=== PATIENT | female | born 1965 | race Caucasian/White ===

== ENCOUNTER → 2016-07-27 | Outpatient (CLI) | payer OTHER ==
[~2016-07-27] MED LIST: *GLUCOMETE; /ATOR40TA; /AUGM875TA OR; /CELE20CA OR; /ESOM40CA; /ESOM40CA OR; /GLIP10TAB OR; ACET650S RE; ACET65TA; AMBI5TAB; ANTIV 25 PO; ASPI81TA85 PO; ATOR1TAB18 PO; BUSP10TA PO; CLAR5CHW; CLAR5CHW OR; CLARITD12H PO; COMPAZIN10 PO; FERR325T; FERR325T OR; FERR325T PO; FLUO20CA8 PO; GLIP10TA18; GLUC1000 OR; GLUC850T; GLUCCOSEAC TOPICAL; GLUCOPH850 PO; GLUCOTROL5 PO; GLYBURIDE5 PO; HYDR12.55 PO; HYDR25TA6 OR; IBUP600T OR; IBUP800T23 PO; IMIT100T; INSUHUMDS SC; JANUVIA OR; LANCETDEV -; LANCMIS; LEVA500T; LEVO750T33 PO; LIPI20TA OR; LIPITOR20 PO; LISI10TA4 PO; LISI5TAB OR; LORA5TAB2 PO; MAG400TA PO; MECL-68 PO; MECL25TA2 OR; METF1000 PO; MOTRIN800 PO; NORT10CA2 PO; NYST10PW TOP; OMEP40CA2 PO; PAME25CA PO; PERC5TAB8 OR; PRIN5TAB; RANI15TA PO; ROSI2TA; SUMA25TA3 PO; TOUJ1.2I SC; VICT18IN SC; XENICAL120 PO; ZOLO50TA; ZOLO50TA OR
== END ==
LOC: M LAB 16:04
PROVIDERS: ATTEND Student in an Organized Health Care Education/Training Program
DX: E11.65 Type 2 diabetes mellitus with hyperglycemia (principal); Z91.89 Other specified personal risk factors, not elsewhere classified

== ENCOUNTER → 2016-08-10 | Outpatient (CLI) | payer OTHER ==
[~2016-08-10] MED LIST changes: +E-Z-GAS II EFFERVESCENT PACKET (SODIUM BICARB./CITRIC ACID/SIMETHICONE) As Ordered ONE; +E-Z-HD 98% w/w 340GM SUSP BTL As Ordered ONE; +E-Z-PAQUE 96% w/w SUSP 176GM BTL As Ordered ONE
--- NOTE | 2016-08-10 16:37 | REP ---
ESOPHAGRAM, AIR CONTRAST: The procedure was performed under the direct supervision of Dr. Hall. The images were reviewed with Dr. Hall. A single view PA chest x-ray is submitted as a college tutor film. There is no change compared to a previous chest x-ray performed on 10/19/2015. The gas-producing granules were given however the patient stated she was unable to drink the barium. The procedure was then discontinued. IMPRESSION: The patient states that she is unable to drink the barium and therefore the procedure was discontinued. 2 seconds of fluoroscopic time was utilized for this procedure. Reviewed by HIMA Casas 08/10/2016 05:14 PEdited and Signed by Cirilo Hall MD 08/11/2016 06:23 P
== END ==
LOC: M RAD 10:01
PROVIDERS: ATTEND Physician Assistant Medical
DX: R13.10 Dysphagia, unspecified (principal); R12 Heartburn; Z53.8 Procedure and treatment not carried out for other reasons

== ENCOUNTER → 2016-08-15 | Outpatient (CLI) | payer OTHER ==
[~2016-08-15] VITALS: Ht 165.1 cm; Wt 115.2 kg
[~2016-08-15] MED LIST changes: -E-Z-GAS II EFFERVESCENT PACKET (SODIUM BICARB./CITRIC ACID/SIMETHICONE) As Ordered ONE; -E-Z-HD 98% w/w 340GM SUSP BTL As Ordered ONE; -E-Z-PAQUE 96% w/w SUSP 176GM BTL As Ordered ONE; +LIDOCAINE 2% INJ 100 MG/5 ML SDV (FOR ANES.) As Ordered ONE; +NS 1,000 ML IV SCH; +PHENYLephrine HCL 500 MCG/5 ML (100MCG/ML) SYRINGE (J2370) As Ordered ONE; +PROPOFOL 200 MG/20 ML VIAL As Ordered ONE; +fentaNYL 100 MCG/2 ML INJECTION (J3010) As Ordered ONE
--- NOTE | 2016-08-15 12:11 | ROOR ---
Patient Name: Felicita Esposito Procedure Date: 08/15/2016 11:57 AM Date of : 1965 Age: 51 Room: [facility] Gender: Female Note Status: Finalized Procedure: Upper GI endoscopy Indications: Heartburn, Globus sensation Providers: Jack LANDAVERDE MD Referring MD: FOREIGN PANDA [facility] May Requesting Provider: Medicines: Monitored Anesthesia Care Complications: No immediate complications. Procedure: Pre-Anesthesia Assessment: - The heart rate, respiratory rate, oxygen saturations, blood pressure, adequacy of pulmonary ventilation, and response to care were monitored throughout the procedure. The Endoscope was introduced through the mouth, and advanced to the second part of duodenum. The upper GI endoscopy was accomplished without difficulty. The patient tolerated the procedure well. Findings: The Z-line was variable and was found 39 cm from the incisors. The esophagus was normal. The stomach was normal. The examined duodenum was normal. No endoscopic abnormality was evident in the esophagus to explain the patient's complaint of dysphagia. It was decided, however, to proceed with dilation of the entire esophagus. The scope was withdrawn. Dilation was performed with a Palacios dilator with no resistance at 54 Fr. Impression: - Z-line variable, 39 cm from the incisors. - Normal esophagus. - Normal stomach. - Normal examined duodenum. - No endoscopic esophageal abnormality to explain patient's dysphagia. Esophagus dilated with 54 Palacios dilator. - No specimens collected. Recommendation: - Observe patient's clinical course. - Continue present medications. Jack Landaverde MD Jack LANDAVERDE MD 08/15/2016 12:10:56 PM This report has been signed electronically. Number of Addenda: 0 Note Initiated On: 08/15/2016 11:57 AM Estimated Blood Loss: Estimated blood loss: none.
--- NOTE | 2016-08-15 12:24 | ROOR ---
Patient Name: Felicita Esposito Procedure Date: 08/15/2016 12:00 PM Date of : 1965 Age: 51 Room: [facility] Gender: Female Note Status: Finalized Procedure: Colonoscopy Indications: Screening for colorectal malignant neoplasm Providers: Jack LANDAVERDE MD Referring MD: FOREIGN PANDA Candy [facility] FOREIGN Olvera Requesting Provider: Medicines: Monitored Anesthesia Care Complications: No immediate complications. Procedure: Pre-Anesthesia Assessment: - The heart rate, respiratory rate, oxygen saturations, blood pressure, adequacy of pulmonary ventilation, and response to care were monitored throughout the procedure. The Colonoscope was introduced through the anus and advanced to the terminal ileum, with identification of the appendiceal orifice and IC valve. The colonoscopy was performed without difficulty. The patient tolerated the procedure well. The quality of the bowel preparation was poor. Findings: The perianal exam findings include non-thrombosed external hemorrhoids. (Colon Prep was POOR, Inadequate Visualisation) A 5 mm polyp was found in the sigmoid colon. The polyp was sessile. The polyp was removed with a cold snare. Resection and retrieval were complete. Internal hemorrhoids were found during retroflexion. The hemorrhoids were medium-sized. Impression: - Preparation of the colon was poor. No obstructing lesions, but visualisation was inadequate for detail exam. - External and internal hemorrhoids found. - One 5 mm polyp in the sigmoid colon, removed with a cold snare. Resected and retrieved. Recommendation: - Repeat colonoscopy in 1 year for adenoma surveillance. - Repeat colonoscopy in 1 year because the bowel preparation was suboptimal. Jack Landaverde MD Jack LANDAVERDE MD 08/15/2016 12:24:03 PM This report has been signed electronically. Number of Addenda: 0 Note Initiated On: 08/15/2016 12:00 PM Estimated Blood Loss: Estimated blood loss: none.
[2016-08-15 12:50] VITALS: BP 136/65
== END | disposition home or self-care (01) ==
LOC: M OPP 11:01
PROVIDERS: ATTEND Internal Medicine Gastroenterology
DX: Z12.11 Encounter for screening for malignant neoplasm of colon (principal); D12.5 Benign neoplasm of sigmoid colon; K64.4 Residual hemorrhoidal skin tags; K64.8 Other hemorrhoids; R12 Heartburn; K22.8 Other specified diseases of esophagus; F45.8 Other somatoform disorders; F33.9 Major depressive disorder, recurrent, unspecified; F41.9 Anxiety disorder, unspecified; E10.9 Type 1 diabetes mellitus without complications; D50.9 Iron deficiency anemia, unspecified; E78.5 Hyperlipidemia, unspecified; I10 Essential (primary) hypertension; R06.83 Snoring; Z79.82 Long term (current) use of aspirin; Z79.899 Other long term (current) drug therapy; Z79.1 Long term (current) use of non-steroidal anti-inflammatories (NSAID); Z79.4 Long term (current) use of insulin; Z79.84 Long term (current) use of oral hypoglycemic drugs; Z91.048 Other nonmedicinal substance allergy status
CPT/HCPCS: 43235; 43450; 45385; 88305; 99156; 99157; J2370; J3010

== ENCOUNTER → 2017-05-04 | Outpatient (REF) | payer OTHER ==
[~2017-05-04] MED LIST changes: -ATOR1TAB18 PO; +ATOR80TA59 PO; +FERR1TAB8 PO; -FERR325T PO; +IBUP1TAB7 PO; -IBUP800T23 PO; +LEVO750T13 PO; -LEVO750T33 PO; -LIDOCAINE 2% INJ 100 MG/5 ML SDV (FOR ANES.) As Ordered ONE; -METF1000 PO; +METF10004 PO; -NS 1,000 ML IV SCH; -PHENYLephrine HCL 500 MCG/5 ML (100MCG/ML) SYRINGE (J2370) As Ordered ONE; -PROPOFOL 200 MG/20 ML VIAL As Ordered ONE; -fentaNYL 100 MCG/2 ML INJECTION (J3010) As Ordered ONE
== END ==
LOC: M LAB REF 08:18
PROVIDERS: ATTEND Hospitalist
DX: J02.9 Acute pharyngitis, unspecified (principal)

== ENCOUNTER → 2017-05-08 | Outpatient (CLI) | payer OTHER ==
--- NOTE | 2017-05-09 09:11 | REP ---
Clinical: Neck and right upper extremity pain. Technique: AP, lateral, flexion/extension, bilateral oblique and open mouth views. Findings: Advanced degenerative disc osteophyte complex noted at the C4-5 C5-6 and C6-7 levels including osteophytosis, endplate sclerosis and disc space narrowing. Associated facet arthropathy is also suggested at the C4-5 and C5-6 levels bilaterally. No evidence for acute fracture / compression injury or subluxation. Prevertebral soft tissues are normal. Spinous processes are intact. Open mouth view demonstrates normal C1-C2 articulation and odontoid process. Impression: Advanced multifocal degenerative changes C4-5 through C6-7. Signed by Duane Alberto MD 05/09/2017 09:02 A
== END ==
LOC: M ADAMS 11:55
PROVIDERS: ATTEND Hospitalist
DX: M25.511 Pain in right shoulder (principal)

== ENCOUNTER → 2017-05-08 | Outpatient (REF) | payer OTHER ==
[2017-05-08 15:35] LABS: ANION GAP 8 MEQ/L (8-16); BLOOD UREA NITROGEN 18 MG/DL (7-18); CARBON DIOXIDE LEVEL 24 MEQ/L (21-32); CHLORIDE LEVEL 105 MEQ/L (98-107); CREATININE FOR GFR 0.76 MG/DL (0.55-1.02); GLOMERULAR FILTRATION RATE > 60.0 (>51); GLUCOSE, FASTING 364 MG/DL (70-105); POTASSIUM SERUM 4.1 MEQ/L (3.5-5.1); SODIUM LEVEL 137 MEQ/L (136-145)
== END ==
LOC: M SFHCPLAZ 11:39
DX: J02.9 Acute pharyngitis, unspecified (principal); Z28.21 Immunization not carried out because of patient refusal; E11.9 Type 2 diabetes mellitus without complications

== ENCOUNTER 2017-06-02 06:41 | Emergency (ER) | payer OTHER ==
[2017-06-02] MEDS ORDERED: KETOROLAC 60 MG/2 ML VIAL (J1885) IM ONE (08:00)
[2017-06-02] MEDS ORDERED: IBUP-1022 PO (09:37)
[2017-06-02] MEDS ORDERED: MELO7.5T7 PO (09:46)
[2017-06-02 09:54] VITALS: BP 173/73
--- NOTE | 2017-06-02 13:04 | REP ---
REASON FOR EXAM: Pain after trauma. COMPARISON: 05/04/2016. FINDINGS: Three views of the left shoulder were performed. The acromioclavicular and glenohumeral relationships are within normal limits. There is no acute fracture or destructive osseous lesion. No significant change in the osseous structures compared to the prior exam, however, today's exam shows a tiny calcification lateral to the humeral head within the soft tissues possible secondary to chronic calcific subdeltoid bursitis or chronic supraspinatus tendinitis. This should be correlated clinically. Signed by Vinicius Smith DO 06/02/2017 01:39 P
--- NOTE | 2017-06-02 13:06 | REP ---
REASON FOR EXAM: Pain and trauma. COMPARISON: 12/18/2014. There is tricompartmental marginal osteophytosis which has increased slightly from the prior exam and seen in conjunction with patellofemoral joint space and medial compartmental narrowing status quo. There is no acute fracture. IMPRESSION: Degenerative changes as described above. Signed by Vinicius Smith DO 06/02/2017 01:39 P
--- NOTE | 2017-06-02 13:07 | REP ---
REASON FOR EXAM: Trauma. Degenerative change is seen throughout the elbow with joint space narrowing and marginal osteophyte formation. There is no evidence of an acute fracture or joint effusion. IMPRESSION: Rather extensive degenerative changes as described above. Signed by Vinicius Smith DO 06/02/2017 01:39 P
--- NOTE | 2017-06-04 12:33 | ED PDOC ---
Post-Departure Follow-Up certified letter sent to pt re formal reading of left shoulder film. Samuel Blum MD Jun 04, 2017 12:33
== END 2017-06-02 09:55 | disposition home or self-care (01) ==
LOC: M ED 06:41
DX: Z04.1 Encounter for examination and observation following transport accident (principal); V40.6XXA Car passenger injured in collision with pedestrian or animal in traffic accident, initial encounter; Y92.413 State road as the place of occurrence of the external cause; Y93.89 Activity, other specified; Y99.8 Other external cause status; M25.522 Pain in left elbow; M19.90 Unspecified osteoarthritis, unspecified site; E11.9 Type 2 diabetes mellitus without complications; I10 Essential (primary) hypertension; H54.61 Unqualified visual loss, right eye, normal vision left eye; Z79.4 Long term (current) use of insulin; Z79.84 Long term (current) use of oral hypoglycemic drugs; Z79.82 Long term (current) use of aspirin; Z79.899 Other long term (current) drug therapy; L23.1 Allergic contact dermatitis due to adhesives; Z91.048 Other nonmedicinal substance allergy status
CPT/HCPCS: 73030; 73080; 73564; 96372; 99284; J1885

== ENCOUNTER → 2017-07-05 | Outpatient (REF) | payer OTHER | LOC: M SFHCPLAZ 17:58 | DX: J02.9 Acute pharyngitis, unspecified (principal) ==

== ENCOUNTER → 2017-07-20 | Outpatient (REF) | payer OTHER | LOC: M SFHCPLAZ 15:48 | DX: J02.9 Acute pharyngitis, unspecified (principal) ==

== ENCOUNTER → 2017-07-24 | Outpatient (REF) | payer OTHER ==
[2017-07-24 12:49] LABS: BASO % 0.3 % (0.0-1.0); EOS # 0.1 10^3/uL (0.0-0.50); EOS % 1.9 % (0.0-3.0); HEMATOCRIT 26.8 % (36.0-47.0); HEMOGLOBIN 7.1 g/dl (12.0-16.0); IMMATURE GRANULOCYTE % 0.3 % (0-0); LYMPH # 1.1 10^3/uL (1.5-4.5); LYMPH % 29.5 % (24.0-44.0); MEAN CORPUSCULAR HEMOGLOBIN 17.6 pg (27.0-33.0); MEAN CORPUSCULAR HGB CONC 26.5 g/dl (32.0-36.5); MEAN CORPUSCULAR VOLUME 66.3 fl (80.0-96.0); MONO # 0.3 10^3/uL (0.0-0.8); MONO % 8.5 % (0.0-5.0); NEUTROPHILS # 2.2 10^3/uL (1.8-7.7); NEUTROPHILS % 59.5 % (36.0-66.0); PLATELET COUNT, AUTOMATED 148 10^3/uL (150-450); RED BLOOD COUNT 4.04 10^6/uL (4.00-5.40); RED CELL DISTRIBUTION WIDTH 18.6 % (11.5-14.5); WHITE BLOOD COUNT 3.8 10^3/uL (4.0-10.0)
[2017-07-24 13:15] LABS: ESTIMATED AVERAGE GLUCOSE 341 MG/DL (60-110); HEMOGLOBIN A1c 13.5 %
== END ==
LOC: M SFHCPLAZ 12:22
DX: J02.9 Acute pharyngitis, unspecified (principal); M25.512 Pain in left shoulder; F45.8 Other somatoform disorders

== ENCOUNTER → 2017-07-31 | Outpatient (REF) | payer OTHER ==
[2017-07-31 14:33] LABS: BASO % 0.5 % (0.0-1.0); EOS # 0.1 10^3/uL (0.0-0.50); EOS % 1.3 % (0.0-3.0); HEMATOCRIT 26.1 % (36.0-47.0); HEMOGLOBIN 7.1 g/dl (12.0-16.0); IMMATURE GRANULOCYTE % 0.3 % (0-0); LYMPH # 1.1 10^3/uL (1.5-4.5); LYMPH % 28.2 % (24.0-44.0); MEAN CORPUSCULAR HEMOGLOBIN 18.2 pg (27.0-33.0); MEAN CORPUSCULAR HGB CONC 27.2 g/dl (32.0-36.5); MEAN CORPUSCULAR VOLUME 66.8 fl (80.0-96.0); MONO # 0.3 10^3/uL (0.0-0.8); MONO % 7.3 % (0.0-5.0); NEUTROPHILS # 2.4 10^3/uL (1.8-7.7); NEUTROPHILS % 62.4 % (36.0-66.0); PLATELET COUNT, AUTOMATED 142 10^3/uL (150-450); RED BLOOD COUNT 3.91 10^6/uL (4.00-5.40); RED CELL DISTRIBUTION WIDTH 18.6 % (11.5-14.5); WHITE BLOOD COUNT 3.8 10^3/uL (4.0-10.0)
[2017-07-31 15:16] LABS: IMMUNOGLOBULIN G 1350 MG/DL (681-1648); IMMUNOGLOBULIN M 169 MG/DL (40-230)
[2017-07-31 15:47] LABS: VITAMIN B12 LEVEL 930 PG/ML (247-911)
== END ==
LOC: M SFHCPLAZ 09:57
DX: J02.9 Acute pharyngitis, unspecified (principal); B99.9 Unspecified infectious disease
CPT/HCPCS: 82607

== ENCOUNTER → 2017-08-06 | Outpatient (CLI) | payer OTHER ==
[~2017-08-06] MED LIST changes: -*GLUCOMETE; -/ATOR40TA; -/AUGM875TA OR; -/CELE20CA OR; -/ESOM40CA; -/ESOM40CA OR; -/GLIP10TAB OR; -ACET650S RE; -ACET65TA; -AMBI5TAB; -ANTIV 25 PO; -ASPI81TA85 PO; -ATOR80TA59 PO; -BUSP10TA PO; -CLAR5CHW; -CLAR5CHW OR; -CLARITD12H PO; -COMPAZIN10 PO; +E-Z-GAS II EFFERVESCENT PACKET (SODIUM BICARB./CITRIC ACID/SIMETHICONE) As Ordered; +E-Z-HD 98% w/w 340GM SUSP BTL As Ordered; +E-Z-PAQUE 96% w/w SUSP 176GM BTL As Ordered; -FERR1TAB8 PO; -FERR325T; -FERR325T OR; -FLUO20CA8 PO; -GLIP10TA18; -GLUC1000 OR; -GLUC850T; -GLUCCOSEAC TOPICAL; -GLUCOPH850 PO; -GLUCOTROL5 PO; -GLYBURIDE5 PO; -HYDR12.55 PO; -HYDR25TA6 OR; -IBUP1TAB7 PO; -IBUP600T OR; -IMIT100T; -INSUHUMDS SC; -JANUVIA OR; -LANCETDEV -; -LANCMIS; -LEVA500T; -LEVO750T13 PO; -LIPI20TA OR; -LIPITOR20 PO; -LISI10TA4 PO; -LISI5TAB OR; -LORA5TAB2 PO; -MAG400TA PO; -MECL-68 PO; -MECL25TA2 OR; -METF10004 PO; -MOTRIN800 PO; -NORT10CA2 PO; -NYST10PW TOP; -OMEP40CA2 PO; -PAME25CA PO; -PERC5TAB8 OR; -PRIN5TAB; -RANI15TA PO; -ROSI2TA; -SUMA25TA3 PO; -TOUJ1.2I SC; -VICT18IN SC; -XENICAL120 PO; -ZOLO50TA; -ZOLO50TA OR
== END ==
LOC: M RAD 10:01
DX: F45.8 Other somatoform disorders (principal)

== ENCOUNTER → 2017-08-06 | Outpatient (REF) | payer OTHER ==
[2017-08-06 13:26] LABS: BASO % 0.6 % (0.0-1.0); EOS # 0.1 10^3/uL (0.0-0.50); EOS % 2.1 % (0.0-3.0); HEMATOCRIT 27.4 % (36.0-47.0); HEMOGLOBIN 7.4 g/dl (12.0-16.0); IMMATURE GRANULOCYTE % 0.4 % (0-3.0); LYMPH # 1.2 10^3/uL (1.5-4.5); LYMPH % 24.5 % (24.0-44.0); MEAN CORPUSCULAR HEMOGLOBIN 18.1 pg (27.0-33.0); MEAN CORPUSCULAR VOLUME 67.2 fl (80.0-96.0); MONO # 0.3 10^3/uL (0.0-0.8); MONO % 5.6 % (0.0-5.0); NEUTROPHILS # 3.2 10^3/uL (1.8-7.7); NEUTROPHILS % 66.8 % (36.0-66.0); PLATELET COUNT, AUTOMATED 144 10^3/uL (150-450); RED BLOOD COUNT 4.08 10^6/uL (4.00-5.40); RED CELL DISTRIBUTION WIDTH 19.7 % (11.5-14.5); WHITE BLOOD COUNT 4.8 10^3/uL (4.0-10.0)
== END ==
LOC: M SFHCPLAZ 12:32
DX: D61.818 Other pancytopenia (principal)

== ENCOUNTER → 2017-08-06 | Outpatient (CLI) | payer OTHER | LOC: M ADAMS 11:20 | DX: M25.512 Pain in left shoulder (principal) | CPT/HCPCS: 73030 ==

== ENCOUNTER → 2017-08-07 | Outpatient (REF) | payer OTHER ==
[2017-08-09 00:07] LABS: LEUKOCYTE ALKALINE PHOSPHATASE 123 (25-130)
== END ==
LOC: M SFHCPLAZ 12:16
DX: D61.818 Other pancytopenia (principal)
CPT/HCPCS: 85540

== ENCOUNTER → 2017-08-17 | Outpatient (REF) | payer OTHER ==
[2017-08-21 00:06] LABS: TISSUE TRANSGLUTAMINASE IgA <2 U/mL (0-3)
[2017-08-23 00:06] LABS: IgA ULTRASENSITIVE 552.3 mg/dL (72-321)
== END ==
LOC: M SFHCPLAZ 13:46
DX: D64.9 Anemia, unspecified (principal)

== ENCOUNTER → 2017-08-28 | Outpatient (REF) | payer OTHER ==
[2017-08-28 14:05] LABS: BASO % 0.4 % (0.0-1.0); EOS # 0.1 10^3/uL (0.0-0.50); EOS % 1.9 % (0.0-3.0); HEMATOCRIT 30.2 % (36.0-47.0); HEMOGLOBIN 8.1 g/dl (12.0-16.0); IMMATURE GRANULOCYTE % 0.4 % (0-3.0); LYMPH # 1.3 10^3/uL (1.5-4.5); LYMPH % 26.6 % (24.0-44.0); MEAN CORPUSCULAR HEMOGLOBIN 19.4 pg (27.0-33.0); MEAN CORPUSCULAR HGB CONC 26.8 g/dl (32.0-36.5); MEAN CORPUSCULAR VOLUME 72.2 fl (80.0-96.0); MONO # 0.4 10^3/uL (0.0-0.8); MONO % 7.7 % (0.0-5.0); PLATELET COUNT, AUTOMATED 120 10^3/uL (150-450); RED BLOOD COUNT 4.18 10^6/uL (4.00-5.40); RED CELL DISTRIBUTION WIDTH 21.2 % (11.5-14.5); RETIC HEMOGLOBIN EQUIVALENT 24.2 pg (24-36); RETICULOCYTE # 100.3 10^9/L (17-77); RETICULOCYTE % 2.4 % (0.5-1.5); WHITE BLOOD COUNT 4.8 10^3/uL (4.0-10.0)
[2017-08-28 14:26] LABS: REASON FOR REVIEW OTHER; SLIDE REVIEW Report
[2017-08-28 14:29] LABS: ADD MANUAL DIFFER NO; DIFF SLIDE NUMBER 146; SOURCE PERIPHERAL SMEAR
== END ==
LOC: M SFHCPLAZ 08:19
DX: D61.818 Other pancytopenia (principal)
CPT/HCPCS: 85046

== ENCOUNTER → 2017-09-24 | Outpatient (CLI) | payer OTHER | LOC: M SLEEP HO 11:22 | DX: R40.0 Somnolence (principal) | CPT/HCPCS: G0399 ==

== ENCOUNTER → 2017-09-25 | Outpatient (CLI) | payer OTHER ==
[2017-09-25 20:09] LABS: BASO % 0.6 % (0.0-1.0); EOS # 0.1 10^3/uL (0.0-0.50); EOS % 1.7 % (0.0-3.0); HEMATOCRIT 30.8 % (36.0-47.0); HEMOGLOBIN 8.4 g/dl (12.0-15.5); IMMATURE GRANULOCYTE % 0.3 % (0-3.0); LYMPH % 27.7 % (24.0-44.0); MEAN CORPUSCULAR HEMOGLOBIN 20.1 pg (27.0-33.0); MEAN CORPUSCULAR HGB CONC 27.3 g/dl (32.0-36.5); MEAN CORPUSCULAR VOLUME 73.7 fl (80.0-96.0); MONO # 0.3 10^3/uL (0.0-0.8); MONO % 7.8 % (0.0-5.0); NEUTROPHILS # 2.1 10^3/uL (1.8-7.7); NEUTROPHILS % 61.9 % (36.0-66.0); PLATELET COUNT, AUTOMATED 135 10^3/uL (150-450); RED BLOOD COUNT 4.18 10^6/uL (4.00-5.40); RED CELL DISTRIBUTION WIDTH 19.7 % (11.5-14.5); RETIC HEMOGLOBIN EQUIVALENT 24.7 pg (24-36); RETICULOCYTE # 68.6 10^9/L (17-77); RETICULOCYTE % 1.6 % (0.5-1.5); WHITE BLOOD COUNT 3.5 10^3/uL (4.0-10.0)
[2017-09-25 20:16] LABS: INR 0.98; PROTHROMBIN TIME 13.1 SECONDS (12.4-14.5); REASON FOR REVIEW PLATELET MORPHOLOGY; SLIDE REVIEW Report; SOURCE PERIPHERAL SMEAR
[2017-09-25 20:57] LABS: C REACTIVE PROTEIN QUANTITATIV 0.77 MG/DL (0.00-0.30)
== END ==
LOC: M RAD 16:44
DX: D69.6 Thrombocytopenia, unspecified (principal)
CPT/HCPCS: 74150

== ENCOUNTER → 2017-10-16 | Outpatient (REF) | payer OTHER ==
[2017-10-16 19:11] LABS: FERRITIN 7 NG/ML (8-252); IRON (FE) 161 UG/DL (50-170); TOTAL IRON BINDING CAPACITY 383 UG/DL (250-450)
[2017-10-16 19:16] LABS: FOLATE 8.8 NG/ML (>5.4); VITAMIN B12 LEVEL 911 PG/ML (247-911)
[2017-10-18 11:30] LABS: ALBUMIN % 45.6 % (55.8-66.1); ALPHA-1-GLOBULIN % 4.1 % (2.9-4.9)
[2017-10-18 11:31] LABS: ALBUMIN 3.19 GM/DL (3.29-5.55); ALPHA-1-GLOBULINS 0.29 GM/DL (0.17-0.41); ALPHA-2-GLOBULINS 0.75 GM/DL (0.42-0.99); ALPHA-2-GLOBULINS % 10.7 % (7.1-11.8); BETA-1-GLOBULINS 0.64 GM/DL (0.28-0.60); BETA-1-GLOBULINS % 9.2 % (4.7-7.2); BETA-2-GLOBULINS 0.46 GM/DL (0.19-0.55); BETA-2-GLOBULINS % 6.6 % (3.2-6.5); GAMMA GLOBULIN % 23.8 % (11.1-18.8); GAMMA GLOBULINS 1.67 GM/DL (0.65-1.58)
[2017-10-19 00:07] LABS: HAPTOGLOBIN 67 mg/dL (34-200)
[2017-10-19 00:07] LABS: BETA 2 MICROGLOBULIN 2.9 mg/L (0.6-2.4)
[2017-10-19 14:33] LABS: PRETREATED FOLATE FOR RBCFOL 9.9 NG/ML; RBC FOLATE 649.7 NG/ML (280-791)
== END ==
LOC: M LAB REF 16:54
DX: D61.818 Other pancytopenia (principal)

== ENCOUNTER → 2018-01-14 | Outpatient (CLI) | payer OTHER | LOC: M WHC 11:00 | DX: R10.84 Generalized abdominal pain (principal) | CPT/HCPCS: 76830 ==

== ENCOUNTER → 2018-02-12 | Outpatient (REF) | payer OTHER ==
[2018-02-12 20:16] LABS: RETIC HEMOGLOBIN EQUIVALENT 34.2 pg (24-36); RETICULOCYTE # 68.8 10^9/L (17-77); RETICULOCYTE % 1.5 % (0.5-1.5)
[2018-02-12 20:27] LABS: GAMMA GLUTAMYLTRANSPEPTIDASE 426 U/L (5-55)
[2018-02-12 20:27] LABS: ALKALINE PHOSPHATASE 340 U/L (45-117)
[2018-02-12 20:37] LABS: ESTIMATED AVERAGE GLUCOSE 332 MG/DL (60-110); HEMOGLOBIN A1c 13.2 %
[2018-02-12 23:18] LABS: FOLLICLE STIMULATING HORMONE 50.5 mIU/mL; LUTEINIZING HORMONE 39.3 mIU/mL
[2018-02-13 09:22] LABS: HEPATITIS B SURFACE ANTIGEN NEGATIVE (NEGATIVE)
[2018-02-16 00:06] LABS: ANTI-MITOCHONDRIAL ANTIBODY 6.4 Units (0.0-20.0); ANTINUCLEAR ANTIBODIES DIRECT Negative (Negative); CERULOPLASMIN 30.4 mg/dL (19.0-39.0); HEMOGLOBIN A 97.8 % (96.4-98.8); HEMOGLOBIN A2 2.2 % (1.8-3.2); HGB SOLUBILITY Negative (Negative); LIVER-KIDNEY MICROSOMAL ABY 1.5 Units (0.0-20.0)
[2018-02-16 00:06] LABS: HEMOGLOBIN A2 QUANTITATIVE 2.2 % (1.8-3.2)
== END ==
LOC: M SFHCPLAZ 15:46
DX: K74.60 Unspecified cirrhosis of liver (principal); E11.9 Type 2 diabetes mellitus without complications; N93.9 Abnormal uterine and vaginal bleeding, unspecified

== ENCOUNTER → 2018-03-05 | Outpatient (REF) | payer OTHER ==
[2018-03-05 20:23] LABS: BASO % 0.2 % (0.0-1.0); EOS # 0.1 10^3/uL (0.0-0.50); EOS % 1.6 % (0.0-3.0); HEMATOCRIT 37.5 % (36.0-47.0); HEMOGLOBIN 12.4 g/dl (12.0-15.5); IMMATURE GRANULOCYTE % 0.2 % (0-3.0); LYMPH # 0.9 10^3/uL (1.5-4.5); LYMPH % 21.1 % (24.0-44.0); MEAN CORPUSCULAR HEMOGLOBIN 27.6 pg (27.0-33.0); MEAN CORPUSCULAR HGB CONC 33.1 g/dl (32.0-36.5); MEAN CORPUSCULAR VOLUME 83.3 fl (80.0-96.0); MONO # 0.3 10^3/uL (0.0-0.8); MONO % 5.7 % (0.0-5.0); NEUTROPHILS # 3.1 10^3/uL (1.8-7.7); NEUTROPHILS % 71.2 % (36.0-66.0); PLATELET COUNT, AUTOMATED 102 10^3/uL (150-450); RED CELL DISTRIBUTION WIDTH 14.3 % (11.5-14.5); WHITE BLOOD COUNT 4.4 10^3/uL (4.0-10.0)
== END ==
LOC: M SFHCPLAZ 13:27 → M SFHCADAM 13:31
DX: E55.9 Vitamin D deficiency, unspecified (principal); D50.8 Other iron deficiency anemias
CPT/HCPCS: 82306

== ENCOUNTER → 2018-04-23 | Outpatient (REF) | payer OTHER ==
[2018-04-23 19:54] LABS: BASO % 0.4 % (0.0-1.0); EOS # 0.1 10^3/uL (0.0-0.50); HEMATOCRIT 37.2 % (36.0-47.0); HEMOGLOBIN 12.3 g/dl (12.0-15.5); IMMATURE GRANULOCYTE % 0.2 % (0-3.0); LYMPH # 1.1 10^3/uL (1.5-4.5); LYMPH % 24.9 % (24.0-44.0); MEAN CORPUSCULAR HEMOGLOBIN 29.1 pg (27.0-33.0); MEAN CORPUSCULAR HGB CONC 33.1 g/dl (32.0-36.5); MEAN CORPUSCULAR VOLUME 87.9 fl (80.0-96.0); MONO # 0.4 10^3/uL (0.0-0.8); NEUTROPHILS # 2.8 10^3/uL (1.8-7.7); NEUTROPHILS % 63.5 % (36.0-66.0); PLATELET COUNT, AUTOMATED 104 10^3/uL (150-450); RED BLOOD COUNT 4.23 10^6/uL (4.00-5.40); RED CELL DISTRIBUTION WIDTH 14.2 % (11.5-14.5); WHITE BLOOD COUNT 4.5 10^3/uL (4.0-10.0)
[2018-04-23 20:05] LABS: ESTIMATED AVERAGE GLUCOSE 295 MG/DL (60-110); HEMOGLOBIN A1c 11.9 %
== END ==
LOC: M LAB REF 18:58
DX: D50.8 Other iron deficiency anemias (principal); E11.39 Type 2 diabetes mellitus with other diabetic ophthalmic complication
CPT/HCPCS: 83036

== ENCOUNTER → 2018-05-10 | Outpatient (REF) | payer OTHER ==
[2018-05-10 19:45] LABS: BASO % 0.5 % (0.0-1.0); EOS # 0.1 10^3/uL (0.0-0.50); EOS % 3.4 % (0.0-3.0); HEMATOCRIT 37.9 % (36.0-47.0); HEMOGLOBIN 12.6 g/dl (12.0-15.5); IMMATURE GRANULOCYTE % 0.5 % (0-3.0); LYMPH # 1.3 10^3/uL (1.5-4.5); LYMPH % 30.4 % (24.0-44.0); MEAN CORPUSCULAR HEMOGLOBIN 29.6 pg (27.0-33.0); MEAN CORPUSCULAR HGB CONC 33.2 g/dl (32.0-36.5); MEAN CORPUSCULAR VOLUME 89.2 fl (80.0-96.0); MONO # 0.3 10^3/uL (0.0-0.8); MONO % 7.7 % (0.0-5.0); NEUTROPHILS # 2.4 10^3/uL (1.8-7.7); NEUTROPHILS % 57.5 % (36.0-66.0); PLATELET COUNT, AUTOMATED 102 10^3/uL (150-450); RED BLOOD COUNT 4.25 10^6/uL (4.00-5.40); RED CELL DISTRIBUTION WIDTH 14.1 % (11.5-14.5); WHITE BLOOD COUNT 4.1 10^3/uL (4.0-10.0)
[2018-05-10 19:52] LABS: ALBUMIN 2.8 GM/DL (3.2-5.2); ALBUMIN/GLOBULIN RATIO 0.72 (1.00-1.93); ALKALINE PHOSPHATASE 216 U/L (45-117); ALT/SGPT 35 U/L (12-78); ANION GAP 8 MEQ/L (8-16); AST/SGOT 35 U/L (7-37); BILIRUBIN,TOTAL 0.7 MG/DL (0.2-1.0); BLOOD UREA NITROGEN 19 MG/DL (7-18); CALCIUM LEVEL 9.2 MG/DL (8.5-10.1); CARBON DIOXIDE LEVEL 27 MEQ/L (21-32); CHLORIDE LEVEL 103 MEQ/L (98-107); CREATININE FOR GFR 0.87 MG/DL (0.55-1.30); GLOMERULAR FILTRATION RATE > 60.0 (>51); GLUCOSE, FASTING 326 MG/DL (70-100); POTASSIUM SERUM 3.7 MEQ/L (3.5-5.1); SODIUM LEVEL 138 MEQ/L (136-145); TOTAL PROTEIN 6.7 GM/DL (6.4-8.2)
[2018-05-10 19:55] LABS: PROTHROMBIN TIME 13.3 SECONDS (12.1-14.4)
== END ==
LOC: M SFHCPLAZ 11:26 → M SFHCADAM 11:27
DX: K76.0 Fatty (change of) liver, not elsewhere classified (principal)

== ENCOUNTER → 2018-05-30 | Outpatient (REF) | payer OTHER | LOC: M SFHCPLAZ 15:38 | DX: J02.9 Acute pharyngitis, unspecified (principal) ==

== ENCOUNTER → 2018-08-07 | Outpatient (REF) | payer OTHER ==
[~2018-08-07] MED LIST changes: +*GLUCOMETE; +/ATOR40TA; +/AUGM875TA OR; +/CELE20CA OR; +/ESOM40CA; +/ESOM40CA OR; +/GLIP10TAB OR; +ACET650S RE; +ACET65TA; +AMBI5TAB; +ANTIV 25 PO; +ASPI81TA85 PO; +ATOR80TA59 PO; +BUSP10TA PO; +CLAR5CHW; +CLAR5CHW OR; +CLARITD12H PO; +COLA100C5 PO; +COMPAZIN10 PO; -E-Z-GAS II EFFERVESCENT PACKET (SODIUM BICARB./CITRIC ACID/SIMETHICONE) As Ordered; -E-Z-HD 98% w/w 340GM SUSP BTL As Ordered; -E-Z-PAQUE 96% w/w SUSP 176GM BTL As Ordered; +FERR1TAB8 PO; +FERR325T; +FERR325T OR; +FERR325T3 PO; +FLUO20CA19 PO; +FLUO20CA8 PO; +GLIP10TA18; +GLUC1000 OR; +GLUC850T; +GLUCCOSEAC TOPICAL; +GLUCOPH850 PO; +GLUCOTROL5 PO; +GLYBURIDE5 PO; +HYDR12.55 PO; +HYDR25TA6 OR; +HYDR25TAB PO; +IBUP-1022 PO; +IBUP1TAB7 PO; +IBUP600T OR; +IBUP80TA PO; +IMIT100T; +INSUHUMDS SC; +JANUVIA OR; +LANCETDEV -; +LANCMIS; +LEVA500T; +LEVO750T13 PO; +LIPI20TA OR; +LIPITOR20 PO; +LISI10TA4 PO; +LISI5TAB OR; +LORA-243 PO; +LORA-581 PO; +MAG400TA PO; +MECL-68 PO; +MECL25TA2 OR; +MELO7.5T7 PO; +METF10004 PO; +MOTRIN800 PO; +NORT10CA2 PO; +NYST10PW TOP; +OMEP40CA2 PO; +OXYC1TAB23 PO; +PAME25CA PO; +PERC5TAB8 OR; +PIOG1TAB37 PO; +PRIN5TAB; +RANI15TA PO; +ROSI2TA; +SUMA25TA3 PO; +TIZA4CAP PO; +TOUJ1.2I SC; +VICT18IN SC; +XENICAL120 PO; +ZOLO50TA; +ZOLO50TA OR
[2018-08-07 12:49] LABS: BASO % 0.4 % (0.0-1.0); EOS # 0.2 10^3/uL (0.0-0.50); HEMATOCRIT 39.4 % (36.0-47.0); HEMOGLOBIN 13.3 g/dl (12.0-15.5); LYMPH # 1.1 10^3/uL (1.5-4.5); LYMPH % 22.8 % (24.0-44.0); MEAN CORPUSCULAR HGB CONC 33.8 g/dl (32.0-36.5); MEAN CORPUSCULAR VOLUME 88.7 fl (80.0-96.0); MONO # 0.3 10^3/uL (0.0-0.8); MONO % 6.8 % (0.0-5.0); NEUTROPHILS # 3.1 10^3/uL (1.8-7.7); NEUTROPHILS % 65.6 % (36.0-66.0); PLATELET COUNT, AUTOMATED 103 10^3/uL (150-450); RED BLOOD COUNT 4.44 10^6/uL (4.00-5.40); WHITE BLOOD COUNT 4.7 10^3/uL (4.0-10.0)
[2018-08-07 13:25] LABS: ALBUMIN 2.7 GM/DL (3.2-5.2); ALT/SGPT 32 U/L (12-78); BILIRUBIN,TOTAL 0.7 MG/DL (0.2-1.0); BLOOD UREA NITROGEN 14 MG/DL (7-18); CALCIUM LEVEL 8.9 MG/DL (8.5-10.1); CARBON DIOXIDE LEVEL 27 MEQ/L (21-32); CHLORIDE LEVEL 104 MEQ/L (98-107); CHOLESTEROL LEVEL 167 MG/DL (<200); CHOLESTEROL RISK RATIO 3.553 (<5); CREATININE FOR GFR 0.73 MG/DL (0.55-1.30); FREE T4 1.05 NG/DL (0.76-1.46); GLOMERULAR FILTRATION RATE > 60.0 (>51); GLUCOSE, FASTING 237 MG/DL (70-100); HDL CHOLESTEROL 47 MG/DL (>40); LDL CHOLESTEROL 96 MG/DL (<100); NON-HDL-C 120 MG/DL; NT-PRO BNP 128 PG/ML (<125); POTASSIUM SERUM 3.7 MEQ/L (3.5-5.1); SODIUM LEVEL 138 MEQ/L (136-145); TOTAL PROTEIN 6.7 GM/DL (6.4-8.2); TRIGLYCERIDES LEVEL 122 MG/DL (<150)
[2018-08-07 13:50] LABS: HEMOGLOBIN A1c 11.7 %
[2018-08-07 14:06] LABS: MAU/CREAT RATIO 377.9 MCG/MG (0.0-30.0)
== END ==
LOC: M SFHCPLAZ 10:33
PROVIDERS: ATTEND Family Medicine
DX: Z01.818 Encounter for other preprocedural examination (principal); E03.8 Other specified hypothyroidism; E78.5 Hyperlipidemia, unspecified; E11.65 Type 2 diabetes mellitus with hyperglycemia

== ENCOUNTER 2018-08-12 10:22 | Day surgery (SDC) | payer OTHER ==
[~2018-08-12] VITALS: Ht 167.6 cm; Wt 100.5 kg
[2018-08-12] VITALS (7 sets, daily range): BP systolic 139–166; BP diastolic 63–75
[~2018-08-12 10:22] MED LIST changes: -OXYC1TAB23 PO
[2018-08-12] MEDS ORDERED: ONDANSETRON 4MG/2ML VIAL (J2405) As Ordered ONE ×2 (10:42→14:42)
[2018-08-12] MEDS ORDERED: fentaNYL 100 MCG/2 ML INJECTION (J3010) As Ordered ONE (10:42)
[2018-08-12] MEDS ORDERED: dexameTHASONE 4 MG/ML 1ML VIAL (J1100) As Ordered ONE (10:42)
[2018-08-12] MEDS ORDERED: PROPOFOL 200 MG/20 ML VIAL As Ordered ONE (10:42)
[2018-08-12] MEDS ORDERED: METOCLOPRAMIDE INJ 10MG/2ML VIAL (J2765) As Ordered ONE (10:42)
[2018-08-12] MEDS ORDERED: LIDOCAINE 2% INJ 100 MG/5 ML SDV (FOR ANES.) As Ordered ONE (10:42)
[2018-08-12] MEDS ORDERED: MIDAZOLAM INJ 2 MG/2 ML VIAL (J2250) As Ordered ONE (10:42)
[2018-08-12] MEDS ORDERED: ROCURONIUM BROMIDE 50 MG/5 ML VIAL As Ordered ONE (10:42)
[2018-08-12] MEDS ORDERED: KETOROLAC 60 MG/2 ML VIAL (J1885) As Ordered ONE (10:42)
[2018-08-12] MEDS ORDERED: ceFAZolin 2 GM/D5W 50 ML IV BAG (J0690 PER 500MG) As Ordered ONE (10:46)
[2018-08-12 10:54] LABS: HEMATOCRIT 39.5 % (36.0-47.0); HEMOGLOBIN 13.6 g/dl (12.0-15.5); MEAN CORPUSCULAR HEMOGLOBIN 29.8 pg (27.0-33.0); MEAN CORPUSCULAR HGB CONC 34.4 g/dl (32.0-36.5); MEAN CORPUSCULAR VOLUME 86.4 fl (80.0-96.0); PLATELET COUNT, AUTOMATED 100 10^3/uL (150-450); RED BLOOD COUNT 4.57 10^6/uL (4.00-5.40); WHITE BLOOD COUNT 5.5 10^3/uL (4.0-10.0)
[2018-08-12] MEDS ORDERED: LR 1,000 ML IV SCH ×2 (11:00→15:00)
[2018-08-12] MEDS ORDERED: BUPIVACAINE HCL 0.25% 10 ML VIAL As Ordered ONE (11:07)
[2018-08-12] MEDS ORDERED: METHYLENE BLUE 0.5% (5MG/ML) 10 ML AMP (PROVAYBLUE)(Q9968 PER 1MG) As Ordered ONE (11:07)
[2018-08-12] MEDS ORDERED: SCOPOLAMINE 1MG TRANSDERMAL PATCH As Ordered ONE (11:35)
[2018-08-12] MEDS ORDERED: SCOPOLAMINE 1MG TRANSDERMAL PATCH TOP ONE (11:45)
[2018-08-12] MEDS ORDERED: OXYC1TAB23 PO (14:28)
[2018-08-12] MEDS ORDERED: HumaLOG INSULIN (NovoLOG) PER UNIT As Ordered ONE (14:43)
[2018-08-12] MEDS ORDERED: HYDROmorphone HCL 2 MG/ML 1ML VIAL (J1170) As Ordered ONE (14:48)
[2018-08-12] MEDS ORDERED: PERCOCET 5MG/325MG TAB PO PRN ×2 (15:00)
[2018-08-12] MEDS ORDERED: fentaNYL 100 MCG/2 ML INJECTION (J3010) IV PRN (15:00)
[2018-08-12] MEDS ORDERED: ONDANSETRON 4MG/2ML VIAL (J2405) IV PRN ×2 (15:00→15:15)
[2018-08-12] MEDS ORDERED: MORPHINE 4 MG/ML 1ML VIAL/SYRINGE (J2270) IV PRN (15:00)
[2018-08-12] MEDS ORDERED: HumaLOG INSULIN (NovoLOG) PER UNIT SQ ONE (15:15)
[2018-08-12] MEDS: LR 1,000 ML IV SCH ×2 (16:00→23:00)
[2018-08-12] MEDS ORDERED: KETOROLAC 30 MG/ML VIAL (J1885) IV PRN (17:00)
[2018-08-12] MEDS ORDERED: FLUoxetine 20 MG CAP PO SCH (18:00)
[2018-08-12] MEDS: HumaLOG INSULIN (NovoLOG) PER UNIT SC SCH (18:43)
[2018-08-12] MEDS ORDERED: HumaLOG INSULIN (NovoLOG) PER UNIT SC SCH (21:00)
[2018-08-12] MEDS ORDERED: NORTRIPTYLINE 10 MG CAP PO SCH (21:00)
[2018-08-12] MEDS: busPIRone 10 MG TAB PO SCH (21:53)
[2018-08-12] MEDS: DOCUSATE SODIUM 100 MG CAP PO SCH (21:53)
[2018-08-12] MEDS: FLUoxetine 20 MG CAP PO SCH (21:53)
[2018-08-12] MEDS: PERCOCET 5MG/325MG TAB PO PRN (21:54)
[2018-08-13] VITALS: BP 142/67
[2018-08-13 04:00] VITALS: BP 147/69
[2018-08-13] MEDS: PERCOCET 5MG/325MG TAB PO PRN ×2 (04:37→10:35)
[2018-08-13] MEDS: LR 1,000 ML IV SCH (07:00)
[2018-08-13 07:13] LABS: HEMATOCRIT 35.4 % (36.0-47.0); MEAN CORPUSCULAR HEMOGLOBIN 29.3 pg (27.0-33.0); MEAN CORPUSCULAR HGB CONC 33.9 g/dl (32.0-36.5); MEAN CORPUSCULAR VOLUME 86.6 fl (80.0-96.0); RED BLOOD COUNT 4.09 10^6/uL (4.00-5.40); WHITE BLOOD COUNT 8.2 10^3/uL (4.0-10.0)
[2018-08-13 07:20] LABS: PLATELET COUNT, AUTOMATED 97 10^3/uL (150-450)
[2018-08-13 07:42] LABS: ALBUMIN 2.4 GM/DL (3.2-5.2); ALT/SGPT 35 U/L (12-78); BILIRUBIN,TOTAL 0.6 MG/DL (0.2-1.0); BLOOD UREA NITROGEN 20 MG/DL (7-18); CALCIUM LEVEL 8.6 MG/DL (8.5-10.1); CARBON DIOXIDE LEVEL 21 MEQ/L (21-32); CHLORIDE LEVEL 105 MEQ/L (98-107); CREATININE FOR GFR 0.92 MG/DL (0.55-1.30); GLOMERULAR FILTRATION RATE > 60.0 (>51); GLUCOSE, FASTING 254 MG/DL (70-100); POTASSIUM SERUM 3.6 MEQ/L (3.5-5.1); SODIUM LEVEL 136 MEQ/L (136-145); TOTAL PROTEIN 6.3 GM/DL (6.4-8.2)
[2018-08-13 07:59] VITALS: BP 178/85
[2018-08-13] MEDS ORDERED: metFORMIN (GLUCOPHAGE) 1000 MG TABLET PO SCH (08:00)
[2018-08-13 08:18] VITALS: BP 178/85
[2018-08-13] MEDS: busPIRone 10 MG TAB PO SCH (08:18)
[2018-08-13] MEDS: DOCUSATE SODIUM 100 MG CAP PO SCH (08:18)
[2018-08-13] MEDS: FLUoxetine 20 MG CAP PO SCH (08:18)
[2018-08-13] MEDS: HumaLOG INSULIN (NovoLOG) PER UNIT SC SCH (08:18)
[2018-08-13] MEDS ORDERED: LISINOPRIL 10 MG TAB PO SCH (09:00)
--- NOTE | 2018-08-13 17:57 | RO ---
DATE OF PROCEDURE: 08/12/2018 PREPROCEDURE DIAGNOSES: Pelvic pain, dysmenorrhea. POSTPROCEDURE DIAGNOSES: Pelvic pain, dysmenorrhea. OPERATIVE PROCEDURES: Robotic assisted laparoscopic hysterectomy and bilateral salpingo-oophorectomy. SURGEON: Sukhdeep Michel MD MAIL WEIGHER: ANESTHESIA: General endotracheal. ESTIMATED BLOOD LOSS: 100 mL. URINE OUTPUT: 200 mL. FINDINGS: Normal uterus, fallopian tubes and ovaries. DESCRIPTION OF PROCEDURE: The patient was taken to the operating room where general endotracheal anesthesia was induced. She was prepped and draped in a sterile fashion in the dorsal lithotomy position. A Coyne catheter was placed and a VCare uterine manipulator was placed. A supraumbilical incision was made with a scalpel. A Veress needle was placed through this incision while tenting up on the skin of the abdomen. Intraabdominal location of the Veress needle was assessed with the use of a saline filled syringe. A pneumoperitoneum was created. An 11 mm trocar using Coraidiport was inserted. Three 8 mm suprapubic ports were placed under direct visualization. The Da Jeovany surgical robot was docked to the port. The procedure was initiated. Due to the large body habitus of the patient, the camera port needed to be placed at a higher level. This was done and the robot was docked again. The IP ligaments, broad ligament attachments, and round ligaments were coagulated and incised using Vessel Sealer. The anterior and posterior leaves of the broad ligament were . A bladder flap was created. Using a fenestrated bipolar device and Endo Carie the uterine vessels were coagulated and incised. Colpotomy was created. The upper vagina at the level of the VCare cup was extended circumferentially around the vagina. Specimen including the uterus, cervix, fallopian tubes and ovaries were removed through the vagina. Vaginal cuff was closed with #0 V-Loc suture in a running fashion. The pelvis was irrigated. All instruments were removed. The patient received methylene blue dye intravenously. Cystoscopy was performed using a 70 degrees cystoscope. Bilateral ureteral jets were identified. There was no evidence of injury to the bladder. The Coyne catheter was replaced. The skin was closed with #4-0 Monocryl subcuticular sutures. Sponge, instrument and needle counts were correct. Nandini De La Cruz NP assisted in all aspects of the procedure from beginning to end. She assisted with positioning the patient, inserting the ports as well as docking the robot. She assisted in manipulating the uterus throughout the procedure and removing the specimen at the end of the procedure. She helped remove the ports and move the patient.
== END 2018-08-13 12:30 | disposition home or self-care (01) ==
LOC: M SDC 10:22 → M PED 18:34 → M SDC 08-13 12:30
PROVIDERS: ATTEND Specialist
DX: R10.2 Pelvic and perineal pain (principal); N94.6 Dysmenorrhea, unspecified; N72 Inflammatory disease of cervix uteri; N83.11 Corpus luteum cyst of right ovary; N83.12 Corpus luteum cyst of left ovary; N80.0 Endometriosis of uterus; I10 Essential (primary) hypertension; E78.00 Pure hypercholesterolemia, unspecified; E10.9 Type 1 diabetes mellitus without complications; M12.9 Arthropathy, unspecified; G47.33 Obstructive sleep apnea (adult) (pediatric); R94.31 Abnormal electrocardiogram [ECG] [EKG]; K21.9 Gastro-esophageal reflux disease without esophagitis; M54.9 Dorsalgia, unspecified; F41.9 Anxiety disorder, unspecified; F32.9 Major depressive disorder, single episode, unspecified; G43.909 Migraine, unspecified, not intractable, without status migrainosus; F40.240 Claustrophobia; R06.83 Snoring; E66.9 Obesity, unspecified; Z68.34 Body mass index [BMI] 34.0-34.9, adult; Z91.09 Other allergy status, other than to drugs and biological substances; Z91.048 Other nonmedicinal substance allergy status; Z79.899 Other long term (current) drug therapy; Z79.84 Long term (current) use of oral hypoglycemic drugs; Z86.010 Personal history of colon polyps; Z86.2 Personal history of diseases of the blood and blood-forming organs and certain disorders involving the immune mechanism; Z98.51 Tubal ligation status
CPT/HCPCS: 36415; 58571; 80053; 85027; 85049; 85055; 86850; 86900; 86901; 88307; J0690; J1100; J1170; J1885; J2250; J2405; J2765; J3010; Q9968

== ENCOUNTER → 2018-10-18 | Outpatient (REF) | payer OTHER ==
[~2018-10-18] MED LIST changes: -/ATOR40TA; -/CELE20CA OR; -/ESOM40CA; -/ESOM40CA OR; +CELE1CAP4 OR; +LIPI1TAB2; +NEXI1CAP3; +NEXI1CAP3 OR; +NYST-15 TOP; -NYST10PW TOP; +OXYC1TAB23 PO
== END ==
LOC: M SFHCPLAZ 15:12
DX: E11.65 Type 2 diabetes mellitus with hyperglycemia (principal)

== ENCOUNTER → 2018-10-22 | Outpatient (REF) | payer OTHER | LOC: M SFHCPLAZ 15:41 | DX: E11.65 Type 2 diabetes mellitus with hyperglycemia (principal); K74.60 Unspecified cirrhosis of liver ==

== ENCOUNTER → 2018-10-28 | Outpatient (REF) | payer OTHER | LOC: M SFHCPLAZ 09:57 | PROVIDERS: ATTEND Family Medicine | DX: R31.0 Gross hematuria (principal) ==

== ENCOUNTER → 2018-10-30 | Outpatient (CLI) | payer OTHER ==
[2018-10-30 18:37] LABS: BASO % 0.5 % (0.0-1.0); EOS # 0.1 10^3/uL (0.0-0.50); EOS % 2.2 % (0.0-3.0); HEMOGLOBIN 14.3 g/dl (12.0-15.5); LYMPH # 1.1 10^3/uL (1.5-4.5); MEAN CORPUSCULAR HEMOGLOBIN 28.8 pg (27.0-33.0); MEAN CORPUSCULAR HGB CONC 32.5 g/dl (32.0-36.5); MEAN CORPUSCULAR VOLUME 88.5 fl (80.0-96.0); MONO # 0.3 10^3/uL (0.0-0.8); MONO % 5.6 % (0.0-5.0); NEUTROPHILS % 72.2 % (36.0-66.0); PLATELET COUNT, AUTOMATED 111 10^3/uL (150-450); RED BLOOD COUNT 4.97 10^6/uL (4.00-5.40); WHITE BLOOD COUNT 5.6 10^3/uL (4.0-10.0)
[2018-10-30 18:54] LABS: INR 1.01; PROTHROMBIN TIME 13.4 SECONDS (12.1-14.4)
[2018-10-30 19:02] LABS: ALBUMIN 2.7 GM/DL (3.2-5.2); ALT/SGPT 43 U/L (12-78); BILIRUBIN,TOTAL 0.8 MG/DL (0.2-1.0); BLOOD UREA NITROGEN 13 MG/DL (7-18); CALCIUM LEVEL 9.8 MG/DL (8.5-10.1); CARBON DIOXIDE LEVEL 27 MEQ/L (21-32); CHLORIDE LEVEL 106 MEQ/L (98-107); CREATININE FOR GFR 0.78 MG/DL (0.55-1.30); GLOMERULAR FILTRATION RATE > 60.0 (>51); GLUCOSE, FASTING 137 MG/DL (70-100); POTASSIUM SERUM 3.8 MEQ/L (3.5-5.1); SODIUM LEVEL 139 MEQ/L (136-145); TOTAL PROTEIN 6.9 GM/DL (6.4-8.2)
[2018-10-30 19:44] LABS: HEMOGLOBIN A1c 12.5 %; MAU/CREAT RATIO 494.6 MCG/MG (0.0-30.0)
== END ==
LOC: M LAB 16:22
PROVIDERS: ATTEND Hospitalist
DX: E11.65 Type 2 diabetes mellitus with hyperglycemia (principal); D50.9 Iron deficiency anemia, unspecified; K74.60 Unspecified cirrhosis of liver

== ENCOUNTER → 2018-10-30 | Outpatient (CLI) | payer OTHER ==
[2018-10-30 18:29] LABS: APPEARANCE, URINE TURBID (CLEAR); BACTERIA, URINE AUTO 3+ (NEGATIVE); BILIRUBIN, URINE AUTO NEGATIVE (NEGATIVE); BLOOD, URINE BLOOD 2+ (NEGATIVE); COLOR, URINE AMBER (YELLOW); GLUCOSE, URINE (UA) AUTO NEGATIVE (NEGATIVE); KETONE, URINE AUTO NEGATIVE (NEGATIVE); LEUKOCYTE ESTERASE, URINE AUTO 2+ (NEGATIVE); MUCUS, URINE LARGE (NEGATIVE); NITRITE, URINE AUTO POSITIVE (NEGATIVE); PROTEIN, URINE AUTO 2+ mg/dL (NEGATIVE); RBC, URINE AUTO TNTC /HPF (0-3); SPECIFIC GRAVITY URINE AUTO 1.023 (1.002-1.035); SQUAMOUS EPITHELIAL CELL UR AU 1 /HPF (0-6); WBC, URINE AUTO TNTC /HPF (0-3)
[2018-10-30 18:37] LABS: BASO % 0.5 % (0.0-1.0); EOS # 0.1 10^3/uL (0.0-0.50); EOS % 1.9 % (0.0-3.0); HEMATOCRIT 42.1 % (36.0-47.0); LYMPH # 1.1 10^3/uL (1.5-4.5); LYMPH % 18.7 % (24.0-44.0); MEAN CORPUSCULAR HEMOGLOBIN 28.9 pg (27.0-33.0); MEAN CORPUSCULAR HGB CONC 33.3 g/dl (32.0-36.5); MONO # 0.4 10^3/uL (0.0-0.8); MONO % 6.5 % (0.0-5.0); NEUTROPHILS # 4.1 10^3/uL (1.8-7.7); PLATELET COUNT, AUTOMATED 116 10^3/uL (150-450); RED BLOOD COUNT 4.84 10^6/uL (4.00-5.40); WHITE BLOOD COUNT 5.7 10^3/uL (4.0-10.0)
[2018-10-30 19:00] LABS: BLOOD UREA NITROGEN 14 MG/DL (7-18); CALCIUM LEVEL 9.9 MG/DL (8.5-10.1); CARBON DIOXIDE LEVEL 27 MEQ/L (21-32); CHLORIDE LEVEL 105 MEQ/L (98-107); CREATININE FOR GFR 0.78 MG/DL (0.55-1.30); GLOMERULAR FILTRATION RATE > 60.0 (>51); GLUCOSE, FASTING 141 MG/DL (70-100); POTASSIUM SERUM 3.8 MEQ/L (3.5-5.1); SODIUM LEVEL 139 MEQ/L (136-145)
[2018-10-30 19:44] LABS: MAU/CREAT RATIO 498.1 MCG/MG (0.0-30.0)
--- NOTE | 2018-10-31 01:59 | REP ---
Clinical: Umbilical hernia and abdominal pain. Technique: Upright view of the chest with supine and upright views of the abdomen and pelvis. Findings: Frontal upright view of the chest demonstrates no acute cardiopulmonary process or free air below the diaphragm to suspect pneumoperitoneum. Supine and upright views of the abdomen and pelvis demonstrate nonspecific bowel gas pattern without obstruction or perforation. No organomegaly. No abnormal calcifications. Skeletal structures normal for age. Impression: Nonspecific bowel gas pattern. Electronically Signed by Duane Alberto MD 10/31/2018 01:50 A
== END ==
LOC: M LAB 16:13
PROVIDERS: ATTEND Family Medicine
DX: R31.0 Gross hematuria (principal); K42.9 Umbilical hernia without obstruction or gangrene

== ENCOUNTER → 2018-12-04 | Outpatient (REF) | payer OTHER ==
[2018-12-05 13:15] LABS: AMORPHOUS SEDIMENT MODERATE (NEGATIVE); APPEARANCE, URINE CLOUDY (CLEAR); BACTERIA, URINE AUTO NEGATIVE (NEGATIVE); BILIRUBIN, URINE AUTO NEGATIVE (NEGATIVE); BLOOD, URINE BLOOD 1+ (NEGATIVE); COLOR, URINE AMBER (YELLOW); GLUCOSE, URINE (UA) AUTO 3+ mg/dL (NEGATIVE); KETONE, URINE AUTO NEGATIVE (NEGATIVE); LEUKOCYTE ESTERASE, URINE AUTO NEGATIVE (NEGATIVE); MUCUS, URINE SMALL (NEGATIVE); NITRITE, URINE AUTO NEGATIVE (NEGATIVE); PROTEIN, URINE AUTO 1+ mg/dL (NEGATIVE); RBC, URINE AUTO 15 /HPF (0-3); SPECIFIC GRAVITY URINE AUTO 1.029 (1.002-1.035); SQUAMOUS EPITHELIAL CELL UR AU 30 /HPF (0-6); WBC, URINE AUTO 1 /HPF (0-3)
== END ==
LOC: M SFHCPLAZ 12:10
PROVIDERS: ATTEND Hospitalist
DX: E11.65 Type 2 diabetes mellitus with hyperglycemia (principal)

== ENCOUNTER → 2018-12-11 | Outpatient (CLI) | payer OTHER ==
[~2018-12-11] MED LIST changes: +CYSTO-CONRAY II 17.2% 250ML VIAL (Q9958) As Ordered ONE
--- NOTE | 2018-12-12 08:59 | REP ---
Examination Requested: Cystogram Reason For Exam: Gross hematuria The procedure was performed by HIMA Ortiz, under the direct supervision of Dr. Diaz. The images were reviewed with Dr. Diaz. The patient arrived to the department and the nursing staff catheterized the bladder with a Cyone catheter for this exam. 500 ml of Cysto-Conray II was instilled into the bladder through the Coyne catheter. The bladder is normal in position and contour. There is no evidence of extravasation or urethral reflux. The Coyne catheter was removed, and the patient was asked to try and void while on the table but was unable to. Therefore, images of the urethra with contrast were not obtained. Post void imaging shows essentially no postvoid residual or filling defects. Impression: 1. Unremarkable cystogram. 0.9 minutes of fluoroscopy time was utilized for this procedure. Reviewed by HIMA Lin 12/11/2018 05:29 P Electronically Signed by Cirilo Diaz MD 12/12/2018 08:50 A
== END ==
LOC: M RADPRO 14:40
PROVIDERS: ATTEND Urology
DX: R31.0 Gross hematuria (principal)
CPT/HCPCS: 51600; 74430; Q9958

== ENCOUNTER → 2018-12-17 | Outpatient (REF) | payer OTHER ==
[~2018-12-17] MED LIST changes: -CYSTO-CONRAY II 17.2% 250ML VIAL (Q9958) As Ordered ONE
[2018-12-17 19:17] LABS: APPEARANCE, URINE HAZY (CLEAR); BACTERIA, URINE AUTO 1+ (NEGATIVE); BILIRUBIN, URINE AUTO NEGATIVE (NEGATIVE); BLOOD, URINE BLOOD 1+ (NEGATIVE); COLOR, URINE STRAW (YELLOW); GLUCOSE, URINE (UA) AUTO 3+ mg/dL (NEGATIVE); KETONE, URINE AUTO NEGATIVE (NEGATIVE); LEUKOCYTE ESTERASE, URINE AUTO 3+ (NEGATIVE); NITRITE, URINE AUTO NEGATIVE (NEGATIVE); PROTEIN, URINE AUTO NEGATIVE (NEGATIVE); RBC, URINE AUTO 4 /HPF (0-3); SPECIFIC GRAVITY URINE AUTO 1.026 (1.002-1.035); SQUAMOUS EPITHELIAL CELL UR AU 1 /HPF (0-6); UROBILINOGEN, URINE AUTO 0.2 mg/dL (0.0-2.0); WBC, URINE AUTO 119 /HPF (0-3)
== END ==
LOC: M SMT 16:53
PROVIDERS: ATTEND Nurse Practitioner Family
DX: R31.0 Gross hematuria (principal)

== ENCOUNTER → 2019-01-06 | Outpatient (REF) | payer OTHER ==
[~2019-01-06] MED LIST changes: +FLUO20CA20 PO; -FLUO20CA8 PO; -MECL-68 PO; +MECL1TAB31 PO; -OMEP40CA2 PO; +OMEP40CA97 PO
== END ==
LOC: M SFHCPLAZ 13:51
DX: K76.0 Fatty (change of) liver, not elsewhere classified (principal)

== ENCOUNTER → 2019-01-08 | Outpatient (CLI) | payer OTHER ==
[~2019-01-08] MED LIST changes: -FLUO20CA20 PO; +FLUO20CA8 PO; +GASTROGRAFIN SOLUTION 30ML (Q9963) As Ordered ONE; +ISOVUE-370 76% 100ML VIAL (Q9967) As Ordered ONE; +MECL-68 PO; -MECL1TAB31 PO; +OMEP40CA2 PO; -OMEP40CA97 PO
--- NOTE | 2019-01-09 07:51 | REP ---
REASON FOR EXAM: Low abdominal pain. CONTRAST: 100 mL Isovue-370. COMPARISON: 11/12/2018, a noncontrast enhanced examination and 06/08/2015 a contrast enhanced examination. The lung bases are clear. The is a slight micronodular surface to the liver edge. There is an abnormal caudate to left lobe ratio. The gallbladder is contracted but otherwise unremarkable. There is splenomegaly. The maximal splenic dimension is approximately 17 cm. 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 The pancreas is atrophic. The adrenal glands and kidneys are within normal limits. The abdominal aorta is within normal limits. There are multiple non-enlarged paraaortic lymph nodes. There is at least 1 lymph node in the retroperitoneum inferior to the superior mesenteric artery and to the right which is enlarged measuring 1.2 cm. Multiple borderline lymph nodes are seen in the odilia hepatis. The bowel loops are within normal limits. There is no evidence of free intraperitoneal fluid or air. There is evidence of early recannulization of the umbilical vein. CT PELVIS: There is no free fluid or free air. There is no mass or adenopathy. The bowel loops and their mesenteries are within normal limits. In the anterior lower abdominal wall subcutaneous fat there are multiple venous varicosities. These appear to have increased in size compared to the latest prior pelvic CT of 01/28/2016. Bone window technique throughout the exam shows chronic spinal degenerative changes status quo. IMPRESSION: 1. There are cirrhotic features to the liver as described above. This needs to be correlated clinically. 2. There is splenomegaly with splenic varices as described above. 3. Retroperitoneal adenopathy. 4. Evidence of subcutaneous varices as described above. This too needs to be correlated clinically. 5. Although by CT standards the bowel loops and their mesenteries are within normal limits. I can not rule out the possibility of wall thickening involving the cecum. If relevant obtain colonoscopy. 6. Other findings as described above. Electronically Signed by Vinicius Smith DO 01/09/2019 10:20 A
== END ==
LOC: M RAD 13:57
PROVIDERS: ATTEND Hospitalist
DX: R10.30 Lower abdominal pain, unspecified (principal)
CPT/HCPCS: 74177; Q9963; Q9967

== ENCOUNTER → 2019-02-03 | Outpatient (REF) | payer OTHER ==
[~2019-02-03] MED LIST changes: -GASTROGRAFIN SOLUTION 30ML (Q9963) As Ordered ONE; -ISOVUE-370 76% 100ML VIAL (Q9967) As Ordered ONE
== END ==
LOC: M SMT 12:49
PROVIDERS: ATTEND Urology
DX: N39.0 Urinary tract infection, site not specified (principal)

== ENCOUNTER → 2019-08-18 | Outpatient (REF) | payer OTHER ==
[~2019-08-18] MED LIST changes: -FLUO20CA19 PO; +FLUO20CA20 PO; +FLUO20CA22 PO; -FLUO20CA8 PO; -MECL-68 PO; +MECL1TAB31 PO; -OMEP40CA2 PO; +OMEP40CA97 PO
[2019-08-18 13:22] LABS: HEMATOCRIT 36.3 % (36.0-47.0); HEMOGLOBIN 11.7 g/dl (12.0-15.5); MEAN CORPUSCULAR HEMOGLOBIN 27.5 pg (27.0-33.0); MEAN CORPUSCULAR HGB CONC 32.2 g/dl (32.0-36.5); MEAN CORPUSCULAR VOLUME 85.2 fl (80.0-96.0); RED BLOOD COUNT 4.26 10^6/uL (4.00-5.40); WHITE BLOOD COUNT 3.9 10^3/uL (4.0-10.0)
[2019-08-18 13:25] LABS: PLATELET COUNT, AUTOMATED 90 10^3/uL (150-450)
[2019-08-18 13:51] LABS: BLOOD UREA NITROGEN 20 MG/DL (7-18); CALCIUM LEVEL 9.8 MG/DL (8.5-10.1); CARBON DIOXIDE LEVEL 26 MEQ/L (21-32); CHLORIDE LEVEL 110 MEQ/L (98-107); CHOLESTEROL LEVEL 142 MG/DL (<200); CREATININE FOR GFR 0.67 MG/DL (0.55-1.30); FERRITIN 35 NG/ML (8-252); GLOMERULAR FILTRATION RATE > 60.0 (>51); GLUCOSE, FASTING 195 MG/DL (70-100); HDL CHOLESTEROL 42 MG/DL (>40); IRON (FE) 113 UG/DL (50-170); LDL CHOLESTEROL 82 MG/DL (<100); NON-HDL-C 100 MG/DL; PERCENT SATURATION 34.8 % (13.2-45.0); POTASSIUM SERUM 4.2 MEQ/L (3.5-5.1); SODIUM LEVEL 140 MEQ/L (136-145); TOTAL IRON BINDING CAPACITY 325 UG/DL (250-450); TRIGLYCERIDES LEVEL 88 MG/DL (<150)
[2019-08-18 14:04] LABS: CREATININE, URINE 99.4 MG/DL; MAU/CREAT RATIO 200.2 MCG/MG (0.0-30.0)
[2019-08-18 14:13] LABS: HEMOGLOBIN A1c 12.2 %
== END ==
LOC: M SFHCPLAZ 11:31
DX: E11.65 Type 2 diabetes mellitus with hyperglycemia (principal); Z71.89 Other specified counseling; R53.82 Chronic fatigue, unspecified

== ENCOUNTER → 2019-10-30 | Outpatient (REF) | payer OTHER ==
[2019-10-30 18:02] LABS: OSMOLALITY SERUM 314 MOSM/KG (275-295)
[2019-10-30 18:04] LABS: CREATININE, URINE 26.9 MG/DL; MAU/CREAT RATIO 583.6 MCG/MG (0.0-30.0)
[2019-10-30 19:43] LABS: ACETONE/KETONE 0.64 MG/DL (<2.81); ALBUMIN 2.7 GM/DL (3.2-5.2); ALT/SGPT 33 U/L (12-78); BILIRUBIN,TOTAL 0.8 MG/DL (0.2-1.0); BLOOD UREA NITROGEN 19 MG/DL (7-18); CALCIUM LEVEL 9.3 MG/DL (8.5-10.1); CARBON DIOXIDE LEVEL 23 MEQ/L (21-32); CHLORIDE LEVEL 101 MEQ/L (98-107); CREATININE FOR GFR 0.94 MG/DL (0.55-1.30); GLOMERULAR FILTRATION RATE > 60.0 (>51); GLUCOSE, FASTING 583 MG/DL (70-100); POTASSIUM SERUM 4.3 MEQ/L (3.5-5.1); SODIUM LEVEL 133 MEQ/L (136-145); TOTAL PROTEIN 7.5 GM/DL (6.4-8.2)
== END ==
LOC: M SFHCPLAZ 15:51
PROVIDERS: ATTEND Internal Medicine
DX: E11.65 Type 2 diabetes mellitus with hyperglycemia (principal); E11.29 Type 2 diabetes mellitus with other diabetic kidney complication

== ENCOUNTER → 2020-04-01 | Outpatient (REF) | payer OTHER ==
[~2020-04-01] MED LIST changes: -ASPI81TA85 PO; +ASPI81TA86 PO
== END ==
LOC: M SFHCPLAZ 14:25
DX: K74.60 Unspecified cirrhosis of liver (principal); E11.65 Type 2 diabetes mellitus with hyperglycemia

== ENCOUNTER → 2020-04-08 | Outpatient (CLI) | payer OTHER ==
[2020-04-08 08:16] LABS: HEMATOCRIT 41.3 % (36.0-47.0); HEMOGLOBIN 13.3 g/dl (12.0-15.5); MEAN CORPUSCULAR HEMOGLOBIN 27.7 pg (27.0-33.0); MEAN CORPUSCULAR HGB CONC 32.2 g/dl (32.0-36.5); MEAN CORPUSCULAR VOLUME 85.9 fl (80.0-96.0); PLATELET COUNT, AUTOMATED 107 10^3/uL (150-450); RED BLOOD COUNT 4.81 10^6/uL (4.00-5.40); WHITE BLOOD COUNT 3.9 10^3/uL (4.0-10.0)
--- NOTE | 2020-04-08 08:26 | REP ---
INDICATION: CIRRHOSIS OF LIVER W/O ASCITES COMPARISON: Comparison CT study January 08, 2019.. TECHNIQUE: Right upper quadrant sonography. FINDINGS: Scanning through the right upper quadrant of the abdomen demonstrates a normal sized, thin-walled gallbladder without evidence of stone or polyp. Common bile duct is normal measuring 0.3 cm in greatest diameter. No focal liver lesion is seen. Liver size is normal. Coarse liver texture is seen consistent with the history of cirrhosis. No pancreatic abnormality is observed, the pancreas is partially obscured by bowel gas.. No right renal abnormality is seen. There is no evidence of ascites. The right kidney measures 10.7 x 5.5 x 5.4 cm. IMPRESSION: Coarse liver texture consistent with history of cirrhosis. No focal liver lesion. Otherwise negative right upper quadrant sonography. <Electronically signed by Ish Zelaya > 04/08/20 [id number]
[2020-04-08 08:40] LABS: ALBUMIN 2.3 GM/DL (3.2-5.2); ALT/SGPT 34 U/L (12-78); BILIRUBIN,TOTAL 0.6 MG/DL (0.2-1.0); BLOOD UREA NITROGEN 15 MG/DL (7-18); CALCIUM LEVEL 9.1 MG/DL (8.5-10.1); CARBON DIOXIDE LEVEL 27 MEQ/L (21-32); CHLORIDE LEVEL 107 MEQ/L (98-107); CREATININE FOR GFR 0.93 MG/DL (0.55-1.30); GLOMERULAR FILTRATION RATE > 60.0 (>51); GLUCOSE, FASTING 287 MG/DL (70-100); POTASSIUM SERUM 4.3 MEQ/L (3.5-5.1); SODIUM LEVEL 139 MEQ/L (136-145); TOTAL PROTEIN 6.5 GM/DL (6.4-8.2)
[2020-04-08 10:32] LABS: HEMOGLOBIN A1c 13.7 %
== END ==
LOC: M RAD 07:38
PROVIDERS: ATTEND Hospitalist
DX: K74.60 Unspecified cirrhosis of liver (principal); E11.65 Type 2 diabetes mellitus with hyperglycemia

== ENCOUNTER → 2020-06-06 | Outpatient (CLI) | payer OTHER ==
[~2020-06-06] MED LIST changes: +BASA100I; +ECOT81TA5 PO; +VITA100020 PO
== END ==
LOC: M LABSMTC 10:13
PROVIDERS: ATTEND Anesthesiology
DX: Z11.59 Encounter for screening for other viral diseases (principal)

== ENCOUNTER → 2020-07-15 | Outpatient (REF) | payer OTHER ==
[~2020-07-15] MED LIST changes: +ADME100I SC; -BASA100I; +BASA100I PO; +DOK1CAP7 PO; +FERR325T18 PO; +HYDR-3490 PO; +HYDR-3713 PO; -HYDR25TAB PO; +LISI10TA22 PO; -LISI10TA4 PO; -MAG400TA PO; +MAGN400T35 PO; +METO10TA2 PO; +NORT25CA2 PO; +OMEP-221 PO; +PERI12LIQ; +STEG5TAB PO; +TIZA4TAB4 PO
== END ==
LOC: M SFHCPLAZ 14:53
DX: K74.60 Unspecified cirrhosis of liver (principal); E11.65 Type 2 diabetes mellitus with hyperglycemia

== ENCOUNTER → 2020-08-01 | Outpatient (CLI) | payer OTHER | LOC: M LABSMTC 08:50 | PROVIDERS: ATTEND Anesthesiology | DX: Z01.812 Encounter for preprocedural laboratory examination (principal); Z20.822 Contact with and (suspected) exposure to COVID-19 ==

== ENCOUNTER 2020-08-06 09:10 | Day surgery (SDC) | payer OTHER ==
[~2020-08-06] VITALS: Ht 162.6 cm; Wt 97.1 kg
[~2020-08-06 09:10] MED LIST changes: +LIDOCAINE 1% MDV 20ML VIAL SQ PRN; +LR 1,000 ML IV ONE
--- OUTSIDE RECORDS SUMMARY | 2020-08-06 09:15 | CCD ---
Author Author [facility] Organization [facility] Address Unknown Phone Unavailable Care Team Providers Care Mergers And Acquisitions Attorney Name Role Phone Rohan Meraz Unavailable PROBLEMS Type Condition ICD9-CM Code [id number] Code Onset Dates Condition S tatus SNOMED Code Notes Problem Essential hypertension I10 Active 82330537 Problem Irregular menstrual bleeding N92.6 Active 801 66447 Problem Anxiety F41.9 Active 30227791 Problem Osteoarthritis of right shoulder, unspecified os teoarthritis type M19.011 Active 64226738 Problem Morbid (severe) obesity due to excess calories E66 .01 Active 035391791 Problem SÁNCHEZ (nonalcoholic steatohepatitis) K75.81 Acti ve 320485896 Problem Uncontrolled type 2 diabetes mellitus with insulin therapy E11.65 Active 116279911 Problem Neuropathy G62.9 Active 578770329 Problem Other allergic rhinitis J30.89 Active 61107381 Problem Hyperlipidemia, unspecified hyperlipidemia E78.5 Active 59697287 Problem Iron deficiency anemia, unspecified iron deficiency D50.9 Active 25723832 Problem Symptomatic menopausal or female climacteric states N95.1 Active 05930379 Problem Gastroesophageal reflux disease without esophagitis K21.9 Active 536260780 Problem [facility] current use of insulin Z79.4 Active 526848762 Problem Type 2 diabetes mellitus without complications E11 .9 Active 763576596 Problem Pancytopenia D61.818 Active 396995152 Problem Type 2 diabetes mellitus wit hout complication, without long-term current use of insulin E11.9 Active 895778499 Problem Iron deficiency anemia, unspecified iron deficiency an emia type D50.9 Active 81603674 Problem Globus sensation F45.8 Active 11286091 Problem Chronic fatigue R53.82 Active 16580953 Problem Suspected sleep apnea G47.30 Active 67050898 Problem Sleep apnea, unspecified type G47.30 Active 73 575766 Problem TSH (thyroid-stimulating hormone deficiency) E03.8 Active 05294515 Problem Other chronic pain G89.29 Active 53283086 Problem Cirrhosis of liver without ascites, unsp ecified hepatic cirrhosis type K74.60 Active 83919179 Problem Environmental allergies Z91.09 Active 03226752 7 Problem Vaginal bleeding N93.9 Active 975353340 Problem Vitamin D deficiency E55.9 Active 62257976 Problem Fatty liver K76.0 Active 045444393 Problem Type 2 diabetes mellitus wit hout complication, unspecified whether residential insulin use E11.9 Active 083412696 Problem Other cirrhosis of liver K74.69 Active 7 Problem Other iron deficiency anemia D50.8 Active 875 64699 Problem Dysphagia, unspecified type R13.10 Active 4073 9000 Problem 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 Active 816740025 Problem Thrombocytopenia D69.6 Active 372369199 Problem Depression, unspecified depression type F32.9 Active 60501759 Problem Diabetic autonomic neuropathy associated with type 2 diabetes mellitus E11.43 Active 001750074 Problem History of hysterectomy Z90.710 Active 02671144 1 Problem Iron deficiency anemia, unspecified D50.9 Acti ve 46873449 Problem Major depressive disorder, recurrent, moderate F33 .1 Active 041419814 Problem Generalized anxiety disorder F41.1 Active 218 38063 Problem Urinary tract infection, site not specified N39.0 Active 50466080 Problem Proteinuria R80.9 Active 32324969 Problem Gross hematuria R31.0 Active 252673816 Problem Diabetic peripheral neuropathy associate d with type 2 diabetes mellitus E11.42 Active 2808580085757 Problem Obstructive sleep apnea G47.33 Active 57729129 Problem Chronic pain due to trauma G89.21 Active 82608 1001 Problem Unspecified cirrhosis of liver K74.60 Active 1 9735032 Problem Uncontrolled type 2 diabetes mellitus with hyperglycemia E11.65 Active 156668837 Problem Excessive and frequent menstruation with regular cycle N92.0 Active 957532964 Problem Diabetic polyneuropathy associated with type 2 d iabetes mellitus E11.42 Active 238959943 Problem Dysmenorrhea N94.6 Active 705735859 Problem Major depressive disorder, single episode, unspecified F32.9 Active 02027813 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.4 Activ e 999503083 Problem Type 2 diabetes mellitus with other diabetic kid soren complication E11.29 Active 78547698 Problem Burning sensation of feet R20.8 Active 775916 01 Problem Type 2 diabetes mellitus with hyperglycemia E11.65 Active [id number] ALLERGIES Allergen (clinical drug ingredient) Drug/Non Drug Allergy do cumented on EMR Reaction Allergy Type Onset Date Status hospital bracelets Rash Non Drug Allergy Active Adhesive Bandages Rash Drug Allergy Activ e ENCOUNTERS from 1966 to 2020-06-14 Encounter Location Date Provider Diagnosis [address] [address] May, Rohan Meraz IMMUNIZATIONS Vaccine Route Administration Date Status Influenza (18 yrs & older) Flublok IM Intramuscular May 06, 2020 Administered Influenza (18 yrs & older) Flublok IM Intramuscular Apr 05, 2018 Administered Pneumococcal Adult 0.5mL (Pneumovax 23) IM Intramuscular Apr 05, 2018 Administered Influenza (6mo & up) Fluzone IM Intramuscular Apr 06, 2016 Ad ministered SOCIAL HISTORY Tobacco Use: Social History Observation Description Date Details (start date - stop date) Never Smoker Sex Assigned At : Social History Observation Description Sex Assigned At Unknown Audit Question Answer Notes Total Score: 0 Interpretation: Alcohol Education Language: Question Answer Notes Languages spoken: Tamaz[place] Adventist: Question Answer Notes Adventist 34 None Sexual Hx: Question Answer Notes Had sex in the last 12 months (vaginal, oral, or anal)? Yes LMP: on BCP Have you ever had an STD? No with Men only Use protection? No Drug and Alcohol Question Answer Notes Total Score: 0 Interpretation: No problems reported BMI Care Goal Follow-Up Question Answer Notes Above Normal BMI Follow-Up Dietary management educatio n, guidance, and counseling, Lifestyle education regarding diet Tobacco Use: Question Answer Notes Are you a: never smoker never smoker REASON FOR REFERRAL No Information VITAL SIGNS No information MEDICATIONS Medication SIG (Take, Route, Frequency, Duration) Notes Start Da te End Date Status FreeStyle Ralph 14 Day [place] - 1 PER YEAR for 1 Active Vitamin E 1000 UNIT 1 capsule Orally Once a day for 30 day(s) Nov, Active Saline Nasal [place] 0.65 % as directed Nasally every 4 hours as needed for 30 day(s) Apr, Not-Taking Trulicity 0.75 MG/0.5ML 0.5 ml Subcutaneous weekly for 15 Not-Taking Lisinopril 10 10 mg 1 tablet orally Once a day for 30 Not-Taking Deblitane 0.35 MG 1 tablet Orally Once a day Not-Taking BusPIRone HCl 10 MG 1 tab orally twice daily Active Nystatin - 4 ml Mouth/Throat Four times a day for 14 day(s) Jun, Not-Taking Sumatriptan Succinate 25 MG 1 tablet as needed one erika e, repeat if no relief in 2 hours Orally Once a day Jul, Not-Ta harvinder Mobic 7.5 MG 1 tablet Orally twice daily as needed Apr, Not-Taking Pen [place] 31G X 6 MM icd: e11.65 for use with ins ulin pens - DX Z79.4 four times daily for 30 day(s) Apr, Active Naproxen 500 MG 1 tablet with food or milk a s needed Orally every 12 hrs for 10 day(s) Jun, Not-Taking Gabapentin 400 MG 1 capsule Orally Three times a day for 30 day( s) Mar, Not-Taking HydrOXYzine HCl 50 MG 1 tablet Orally 1 for 1 dose(s) 2017 Active Levofloxacin 750 MG 1 tablet Orally Once a day for 7 day(s) October, Not-Taking Augmentin 500-125 MG 1 tablet Orally bid for 5 day(s) 2018 Not-Taking Lisinopril 10 MG 1 tablet Orally Once a day for 30 Active Diflucan 150 MG 1 tablet Orally Daily for 5 days Jun, 018 Not-Taking Humalog 100 UNIT/ML 20 units Subcutaneous before dinner for 30 day(s) May, Not-Taking Docusate Sodium 100 MG TAKE ONE CAPSULE BY MOUTH EV CIPRIANO DAY NEEDED Orally Once a day for 30 Active Zantac 150 MG 1 tab Orally Twice a day for 30 Not-Taking OraMagic Plus 10 % 1 ml as needed Mouth/Throat bid for 30 day(s) Jul, Not-Taking Cetirizine HCl 5 MG 1 tablet Orally Once a day for 30 Not-Taking Bactrim DS 800-160 MG 1 tablet Orally Twice a day for 10 day(s) Nov, Not-Taking Omeprazole 20 MG 2 capsules Orally twice daily for 30 day(s) Jul, Not-Taking Bactrim DS 800-160 MG 1 tablet 1 hour prior to you r cystoscopy Orally Once for 1 days Nov, Not-Taking Bactrim DS 800-160 MG 1 tablet 1hour prior to your cystoscopy Orally Once for 1 days Nov, Not-Taking Metformin HCl 1000 MG 1 tablet with meals Orally Twice a day for 30 Active Steglatro 5 MG 1 tablet Orally Once a day for 30 Active Aspirin 81 81 MG 1 tablet Orally Once a day for 30 days Active IBU 800 MG 1 tablet Orally Three times a day as needed for 30 Active Hydrochlorothiazide 12.5 MG 1 tablet Orally Once a day for 30 Active Aspir-81 81 MG 1 tablet Orally Once a day Not-Taking [place]o SoloStar Pens 450 U/1.5mL as directed subcutane ously 90 units in the morning, 90 units at night Apr, Not-T aking Nortriptyline HCl 10 MG 1 capsule Orally Once a day at bedtime for 30 Active FreeStyle Ralph 14 Day Sensor - CHANGE EVERY 14 DAYS for 14 Active Macrobid 100 MG 1 capsule with food Orally every 12 hrs Jul, Not-Taking BuSpar 10 mg 1 tablet Orally Twice a day for 1 month 2014 Active Fosfomycin 3 g 3 g dissolved in 4 oz of water orally one dose for 1 d ays Not-Taking Vitamin E 1000 UNIT 1 cap Orally Daily Mar, Not-Taking Blood Pressure Kit - Dx l10 arm twice daily Jun, Active Claritin-D 24 Hour 10-240 MG 1 tablet as needed Orally Once a da y for 30 days Active Basaglar KwikPen 100 UNIT/ML as directed Subcutaneous 70 units in the am and 90 units in the pm for 10 Active Actos 30 MG 1 tablet Orally Once a day for 30 Active Admelog 100 UNIT/ML 20 units Subcutaneous before dinner Active FreeStyle Ralph 14 Day [place] - use as directed for co ntinuous glucose monitoirng continuous Daily for 28 day(s) Mar, Active Ferrous Sulfate 325 (65 Fe) MG 1 tablet Orally Once a day for 30 Active FreeStyle Ralph 14 Day Sensor - use as directed for co ntinous glucose monitoring continuous for 28 day(s) Mar, Active Flonase 50 MCG/ACT 1 spray in each nostril Nasally Once a day for 31 Not-Taking Gabapentin 600 MG 1 tablet Orally three times daily for 30 day(s ) Jan, Not-Taking Duloxetine HCl 60 MG 1 capsule Orally Once a day for 30 day(s) Apr, Active Ranitidine HCl 150 MG TAKE ONE TABLET BY MOUTH TWICE A DAY for 30 Not-Taking Lyrica 50 MG 1 capsule Orally TID for 30 days Dec, Not-Taking Omeprazole 40 MG 1 capsule 30 minutes before morning meal Orally bid for 30 day(s) May, Active Mucinex 600 MG 1 tablet as needed Orally Daily for 30 day(s) May, Not-Taking One touch ultra blue _ as directed intradermally 3 - 5 x/day for 20 Active Meclizine HCl 25 mg take two tablets by mouth every day orally bid Active Insulin Syringe insulin syringe icd:250.02 iddm subcut aneously twice daily for 30 Active Atorvastatin Calcium 80 MG 1 tablet Orally Once a day for 30 Active Duloxetine HCl 20 MG 1 capsule Orally Once a day for 7 day(s) October, Not-Taking PROCEDURES No Information RESULTS No Results REASON FOR VISIT per op clearance MEDICAL (GENERAL) HISTORY Type Description Date Medical History Hyperlipidemia Medical History Depression Medical History Anxiety Medical History Hypertension Medical History Diabetes Mellitus-Persistent from Gestat ional Medical History Allergic Rhinitis Medical History BPPV ?? Medical History Legally Blind Right Eye since Medical History Osteoarthritis Medical History refused PNA shot - Jun 2016 Medical History ANEMIC Medical History Fatty liver cirrhosis Surgical History tubal ligation Surgical History umbilical hernia repair x 4 Surgical History Wound drainage 01/29/16 Surgical History hysterectomy abdominal 08/12/2018 Surgical History cysto 11/2018 Surgical History CYSTOSCOPY 02/03/2019 Hospitalization History syncope/dehydration, abscess R butto ck 01/29/2016 Goals Section No Information Health Concerns No Information MEDICAL EQUIPMENT No Information MENTAL STATUS No Information FUNCTIONAL STATUS No Information ASSESSMENTS No Information PLAN OF TREATMENT Medication Medication Name Sig Start Date Stop Date Steglatro 5 MG 1 tablet Orally Once a day for 30 Duloxetine HCl 60 MG 1 capsule Orally Once a day for 30 day(s) 1 2 Apr, 2020 Next Appt Details Provider Name:Rohan Meraz, 2020-- 01:45:00 PM, [address] [facility], [place], [address], Insurance Providers Payer Name Payer Address Payer Phone Insured Name Patient Relati onship to Insured Coverage Start Date Coverage End Date [facility] [address] [facility] [id number] [phone] RUSSELL HUGHES self
--- OUTSIDE RECORDS SUMMARY | 2020-08-06 09:15 | CCD ---
Author Author [facility] Organization [facility] Address Unknown Phone Unavailable Care Team Providers Care Prestidigitator Name Role Phone Rohan Meraz Unavailable PROBLEMS Type Condition ICD9-CM Code [id number] Code Onset Dates Condition S tatus SNOMED Code Notes Problem Anxiety F41.9 Active 46394403 Problem Morbid (severe) obesity due to excess calories E66 .01 Active 042564859 Problem Irregular menstrual bleeding N92.6 Active 801 56634 Problem Suspected sleep apnea G47.30 Active 46749537 Problem Osteoarthritis of right shoulder, unspecified os teoarthritis type M19.011 Active 53167768 Problem Obstructive sleep apnea G47.33 Active 12326002 Problem Iron deficiency anemia, unspecified iron deficiency D50.9 Active 42083858 Problem SÁNCHEZ (nonalcoholic steatohepatitis) K75.81 Acti ve 806201777 Problem Uncontrolled type 2 diabetes mellitus with insulin therapy E11.65 Active 087810782 Problem Gastroesophageal reflux disease without esophagitis K21.9 Active 607891378 Problem Hyperlipidemia, unspecified hyperlipidemia E78.5 Active 84069457 Problem Essential hypertension I10 Active 87815062 Problem Symptomatic menopausal or female climacteric states N95.1 Active 72192461 Problem Type 2 diabetes mellitus wit hout complication, without long-term current use of insulin E11.9 Active 057170813 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 Active 490337615 Problem Globus sensation F45.8 Active 37502008 Problem Pancytopenia D61.818 Active 981747026 Problem Dysphagia, unspecified type R13.10 Active 4073 9000 Problem Iron deficiency anemia, unspecified iron deficiency an emia type D50.9 Active 08648010 Problem TSH (thyroid-stimulating hormone deficiency) E03.8 Active 95020359 Problem Chronic fatigue R53.82 Active 27829351 Problem Other chronic pain G89.29 Active 86690845 Problem Sleep apnea, unspecified type G47.30 Active 73 408343 Problem Type 2 diabetes mellitus without complications E11 .9 Active 245165772 Problem Vaginal bleeding N93.9 Active 627784285 Problem Fatty liver K76.0 Active 016677040 Problem Environmental allergies Z91.09 Active 03077578 7 Problem Other cirrhosis of liver K74.69 Active 4896986 7 Problem Vitamin D deficiency E55.9 Active 45641031 Problem Dysmenorrhea N94.6 Active 083754308 Problem Type 2 diabetes mellitus wit hout complication, unspecified whether correction insulin use E11.9 Active 727564625 Problem Thrombocytopenia D69.6 Active 326380020 Problem Other iron deficiency anemia D50.8 Active 875 33501 Problem Cirrhosis of liver without ascites, unsp ecified hepatic cirrhosis type K74.60 Active 50309662 Problem 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 Active 341573174 Problem Iron deficiency anemia, unspecified D50.9 Acti ve 98327206 Problem Depression, unspecified depression type F32.9 Active 95032937 Problem Generalized anxiety disorder F41.1 Active 218 04091 Problem History of hysterectomy Z90.710 Active 62900532 1 Problem Gross hematuria R31.0 Active 834056759 Problem Diabetic peripheral neuropathy associate d with type 2 diabetes mellitus E11.42 Active 5746480326419 Problem Major depressive disorder, recurrent, moderate F33 .1 Active 530393639 Problem Neuropathy G62.9 Active 910799294 Problem Other allergic rhinitis J30.89 Active 76795407 Problem Urinary tract infection, site not specified N39.0 Active 94435940 Problem Proteinuria R80.9 Active 32142439 Problem Chronic pain due to trauma G89.21 Active 86830 1001 Problem Unspecified cirrhosis of liver K74.60 Active 1 2397236 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 Activ e 480061849 Problem Diabetic polyneuropathy associated with type 2 d iabetes mellitus E11.42 Active 507943221 Problem Major depressive disorder, single episode, unspecified F32.9 Active 92440886 Problem Gastroparesis K31.84 Active 104488258 Problem Excessive and frequent menstruation with regular cycle N92.0 Active 152850482 Problem Diabetic autonomic neuropathy associated with type 2 diabetes mellitus E11.43 Active 053577354 Problem Type 2 diabetes mellitus with other diabetic kid soren complication E11.29 Active 75170281 Problem Burning sensation of feet R20.8 Active 745619 01 Problem Type 2 diabetes mellitus with hyperglycemia E11.65 Active 259983929947482 Problem Uncontrolled type 2 diabetes mellitus with hyperglycemia E11.65 Active 221706357 ALLERGIES Allergen (clinical drug ingredient) Drug/Non Drug Allergy do cumented on EMR Reaction Allergy Type Onset Date Status hospital bracelets Rash Non Drug Allergy Active Adhesive Bandages Rash Drug Allergy Activ e ENCOUNTERS from 1966 to 2020-07-24 Encounter Location Date Provider Diagnosis [address] [address] Jun, Rohan Meraz Diabetic polyneuropathy associated with type 2 diabetes mellitus E11.42 and Gastroparesis K31.84 IMMUNIZATIONS Vaccine Route Administration Date Status Influenza [...] Education Language: Question Answer Notes Languages spoken: Italian Voodoo: Question Answer Notes Voodoo 33 None Sexual Hx: Question Answer Notes [...] Notes Start Da te End Date Status Meclizine HCl 25 mg take two tablets by mouth every day orally bid Active Blood Pressure Kit - Dx l10 arm twice daily Jun, Active Sumatriptan Succinate 25 MG 1 tablet as needed one erika e, repeat if no relief in 2 hours Orally Once a day Jul, Not-Ta harvinder Augmentin 500-125 MG 1 tablet Orally bid for 5 day(s) 2018 Not-Taking Deblitane 0.35 MG 1 tablet Orally Once a day Not-Taking Mobic 7.5 MG 1 tablet Orally twice daily as needed Apr, Not-Taking Pen [place] 31G X 6 MM icd: e11.65 for use with ins ulin pens - DX Z79.4 four times daily for 30 day(s) Apr, Active Naproxen 500 MG 1 tablet with food or milk a s needed Orally every 12 hrs for 10 day(s) Jun, Not-Taking Levofloxacin 750 MG 1 tablet Orally Once a day for 7 day(s) October, Not-Taking BusPIRone HCl 10 MG 1 tab orally twice daily Active Omeprazole 20 MG 2 capsules Orally twice daily for 30 day(s) Jul, Not-Taking FreeStyle Ralph 14 Day [place] - use as directed for co ntinuous glucose monitoirng continuous Daily for 28 day(s) Mar, Active Aspir-81 81 MG 1 tablet Orally Once a day Not-Taking Fosfomycin 3 g 3 g dissolved in 4 oz of water orally one dose for 1 d ays Not-Taking FreeStyle Ralph 14 Day Sensor - CHANGE EVERY 14 DAYS for 14 Active Nystatin - 4 ml Mouth/Throat Four times a day for 14 day(s) Jun, Not-Taking Docusate Sodium 100 MG TAKE ONE CAPSULE BY MOUTH EV CIPRIANO DAY NEEDED Orally Once a day for 30 Active Gabapentin 600 MG 1 tablet Orally three times daily for 30 day(s ) Jan, Not-Taking Diflucan 150 MG 1 tablet Orally Daily for 5 days Jun, 018 Not-Taking One touch ultra blue _ as directed intradermally 3 - 5 x/day for 20 Active Nortriptyline HCl 25 MG 1 capsule Orally once daily at bedtime f or 30 day(s) Jun, Active Lisinopril 10 MG 1 tablet Orally Once a day for 30 Active Cetirizine HCl 5 MG 1 tablet Orally Once a day for 30 Not-Taking Basaglar KwikPen 100 UNIT/ML as directed Subcutaneous 70 units in the am and 90 units in the pm for 10 Active Actos 30 MG 1 tablet Orally Once a day for 30 Active Trulicity 0.75 MG/0.5ML 0.5 ml Subcutaneous weekly for 15 Not-Taking Humalog 100 UNIT/ML 20 units Subcutaneous before dinner for 30 day(s) May, Not-Taking Lisinopril 10 10 mg 1 tablet orally Once a day for 30 Not-Taking Flonase 50 MCG/ACT 1 spray in each nostril Nasally Once a day for 31 Not-Taking Ranitidine HCl 150 MG TAKE ONE TABLET BY MOUTH TWICE A DAY for 30 Not-Taking Saline Nasal [place] 0.65 % as directed Nasally every 4 hours as needed for 30 day(s) Apr, Not-Taking Bactrim DS 800-160 MG 1 tablet 1hour prior to your cystoscopy Orally Once for 1 days Nov, Not-Taking Bactrim DS 800-160 MG 1 tablet Orally Twice a day for 10 day(s) Nov, Not-Taking Claritin-D 24 Hour 10-240 MG 1 tablet as needed Orally Once a da y for 30 days Active Omeprazole 40 MG 1 capsule 30 minutes before morning meal Orally bid for 30 day(s) May, Active HydrOXYzine HCl 50 MG 1 tablet Orally 1 for 1 dose(s) 2017 Active Admelog 100 UNIT/ML 20 units Subcutaneous before dinner Active Aspirin 81 81 MG 1 tablet Orally Once a day for 30 days Active Atorvastatin Calcium 80 MG 1 tablet Orally Once a day for 30 Active Bactrim DS 800-160 MG 1 tablet 1 hour prior to you r cystoscopy Orally Once for 1 days Nov, Not-Taking Vitamin E 1000 UNIT 1 capsule Orally Once a day for 30 day(s) Nov, Active Ferrous Sulfate 325 (65 Fe) MG 1 tablet Orally Once a day for 30 Active BuSpar 10 mg 1 tablet Orally Twice a day for 1 month 08 Oc 2014 Active Insulin Syringe insulin syringe icd:250.02 iddm subcut aneously twice daily for 30 Active Vitamin E 1000 UNIT 1 cap Orally Daily Mar, Not-Taking Lyrica 50 MG 1 capsule Orally TID for 30 days Dec, Not-Taking Metoclopramide HCl 10 MG 1 tablet before meals Orally Twice a day for 30 day(s) Jun, Active Bonillaaydinrosi TitusoStar Pens 450 U/1.5mL as directed subcutane ously 90 units in the morning, 90 units at night Apr, Not-T aking Duloxetine HCl 20 MG 1 capsule Orally Once a day for 7 day(s) October, Not-Taking Mucinex 600 MG 1 tablet as needed Orally Daily for 30 day(s) May, Not-Taking Steglatro 5 MG 1 tablet Orally Once a day for 30 Active Zantac 150 MG 1 tab Orally Twice a day for 30 Not-Taking IBU 800 MG 1 tablet Orally Three times a day as needed for 30 Active Gabapentin 400 MG 1 capsule Orally Three times a day for 30 day( s) Mar, Not-Taking Hydrochlorothiazide 12.5 MG 1 tablet Orally Once a day for 30 Active Duloxetine HCl 60 MG 1 capsule Orally Once a day for 30 day(s) Apr, Active Macrobid 100 MG 1 capsule with food Orally every 12 hrs Jul, Not-Taking Metformin HCl 1000 MG 1 tablet with meals Orally Twice a day for 30 Active FreeStyle Ralph 14 Day Sensor - use as directed for co ntinous glucose monitoring continuous for 28 day(s) Mar, Active FreeStyle Ralph 14 Day [place] - 1 PER YEAR for 1 Active OraMagic Plus 10 % 1 ml as needed Mouth/Throat bid for 30 day(s) Jul, Not-Taking PROCEDURES No Information RESULTS No Results REASON FOR VISIT refills MEDICAL (GENERAL) HISTORY Type Description Date Medical [...] No Information FUNCTIONAL STATUS No Information ASSESSMENTS Encounter Date Diagnosis Assessment Notes Treatment Notes Treatm ent Clinical Notes Jun, Diabetic polyneuropathy asso ciated with type 2 diabetes mellitus (ICD-10 - E11.42) Jun, Gastroparesis (ICD-10 - K31.84) PLAN OF TREATMENT Medication Medication Name Sig Start Date Stop Date Metoclopramide HCl 10 MG 1 tablet before meals Orally Twice a day for 30 day(s) Jun, Nortriptyline HCl 25 MG 1 capsule Orally once daily at bedti sc for 30 day(s) Jun, Insurance Providers Payer Name Payer Address Payer Phone Insured Name Patient Relati onship to Insured Coverage Start Date Coverage End Date [facility] [address] [facility] [id number] RUSSELL HUGHES self
--- OUTSIDE RECORDS SUMMARY | 2020-08-06 09:15 | CCD ---
Author Author [facility] Organization [facility] Address Unknown Phone Unavailable Care Team Providers Care Export Freight Clerk Name Role Phone Rohan Meraz Unavailable PROBLEMS Type Condition ICD9-CM Code [id number] Code Onset Dates Condition S tatus SNOMED Code Notes Problem Essential hypertension I10 Active 50775898 Problem Irregular menstrual bleeding N92.6 Active 801 39568 Problem Anxiety F41.9 Active 16806140 Problem Osteoarthritis of right shoulder, unspecified os teoarthritis type M19.011 Active 04466451 Problem Morbid (severe) obesity due to excess calories E66 .01 Active 593828380 Problem SÁNCHEZ (nonalcoholic steatohepatitis) K75.81 Acti ve 218209802 Problem Uncontrolled type 2 diabetes mellitus with insulin therapy E11.65 Active 099824790 Problem Neuropathy G62.9 Active 146193897 Problem Other allergic rhinitis J30.89 Active 33849918 Problem Hyperlipidemia, unspecified hyperlipidemia E78.5 Active 49554610 Problem Iron deficiency anemia, unspecified iron deficiency D50.9 Active 66652144 Problem Symptomatic menopausal or female climacteric states N95.1 Active 58224465 Problem Gastroesophageal reflux disease without esophagitis K21.9 Active 160171035 Problem assisted current use of insulin Z79.4 Active 356866270 Problem Type 2 diabetes mellitus without complications E11 .9 Active 176506323 Problem Pancytopenia D61.818 Active 015762346 Problem Type 2 diabetes mellitus wit hout complication, without long-term current use of insulin E11.9 Active 440989167 Problem Iron deficiency anemia, unspecified iron deficiency an emia type D50.9 Active 95187123 Problem Globus sensation F45.8 Active 68454576 Problem Chronic fatigue R53.82 Active 13040101 Problem Suspected sleep apnea G47.30 Active 89369845 Problem Sleep apnea, unspecified type G47.30 Active 73 696332 Problem TSH (thyroid-stimulating hormone deficiency) E03.8 Active 22979595 Problem Other chronic pain G89.29 Active 36163909 Problem Cirrhosis of liver without ascites, unsp ecified hepatic cirrhosis type K74.60 Active 77822925 Problem Environmental allergies Z91.09 Active 41347275 7 Problem Vaginal bleeding N93.9 Active 345193970 Problem Vitamin D deficiency E55.9 Active 66317163 Problem Fatty liver K76.0 Active 395645903 Problem Type 2 diabetes mellitus wit hout complication, unspecified whether residential insulin use E11.9 Active 780004982 Problem Other cirrhosis of liver K74.69 Active 7 Problem Other iron deficiency anemia D50.8 Active 875 83561 Problem Dysphagia, unspecified type R13.10 Active 4073 9000 Problem 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 Active 724787437 Problem Thrombocytopenia D69.6 Active 109797373 Problem Depression, unspecified depression type F32.9 Active 39108113 Problem Diabetic autonomic neuropathy associated with type 2 diabetes mellitus E11.43 Active 018721018 Problem History of hysterectomy Z90.710 Active 07423662 1 Problem Iron deficiency anemia, unspecified D50.9 Acti ve 20896228 Problem Major depressive disorder, recurrent, moderate F33 .1 Active 790544025 Problem Generalized anxiety disorder F41.1 Active 218 67776 Problem Urinary tract infection, site not specified N39.0 Active 86482619 Problem Proteinuria R80.9 Active 53966891 Problem Gross hematuria R31.0 Active 996247108 Problem Diabetic peripheral neuropathy associate d with type 2 diabetes mellitus E11.42 Active 3458680382979 Problem Obstructive sleep apnea G47.33 Active 26703991 Problem Chronic pain due to trauma G89.21 Active 38354 1001 Problem Unspecified cirrhosis of liver K74.60 Active 1 7634744 Problem Uncontrolled type 2 diabetes mellitus with hyperglycemia E11.65 Active 297282971 Problem Excessive and frequent menstruation with regular cycle N92.0 Active 049412221 Problem Diabetic polyneuropathy associated with type 2 d iabetes mellitus E11.42 Active 646980618 Problem Dysmenorrhea N94.6 Active 594187580 Problem Major depressive disorder, single episode, unspecified F32.9 Active 99752225 Problem 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 Z79.4 Activ e 213355415 Problem Type 2 diabetes mellitus with other diabetic kid soren complication E11.29 Active 69047465 Problem Burning sensation of feet R20.8 Active 703125 01 Problem Type 2 diabetes mellitus with hyperglycemia E11.65 Active 321944686011635 ALLERGIES Allergen (clinical drug ingredient) Drug/Non Drug Allergy do cumented on EMR Reaction Allergy Type Onset Date Status hospital bracelets Rash Non Drug Allergy Active Adhesive Bandages Rash Drug Allergy Activ e ENCOUNTERS from 1966 to 2020-06-14 Encounter Location Date Provider Diagnosis [facility] [address] [place] [address] Apr, Rohan Meraz Preoperative cardiovascular examination Z01.810 ; Cirrhosis of liver without ascites, unspecified hepatic cirrhosis type K74.60 ; Uncontrolled type 2 diabetes mellitus with hyperglycemia E11.65 ; Diabetic polyneuropathy associated with type 2 diabetes mellitus E11.42 and Influenza vaccine needed Z23 IMMUNIZATIONS Vaccine Route Administration Date Status Influenza [...] Education Language: Question Answer Notes Languages spoken: Kyrgyz Hinduism: Question Answer Notes Hinduism 33 None Sexual Hx: Question Answer Notes [...] REASON FOR REFERRAL No Information VITAL SIGNS Weight 226 lbs Apr, Height 68 in Apr, BMI 34.36 kg/m2 Apr, Heart Rate 107 /min Apr, Respiratory Rate 18 /min Apr, Temperature 97.3 degrees Fahrenheit Apr, Oximetry 97 Apr, Blood pressure systolic 126 mm Hg Apr, Blood pressure diastolic 82 mm Hg Apr, MEDICATIONS Medication SIG (Take, Route, Frequency, Duration) Notes Start Da te End Date Status FreeStyle Ralph 14 Day [place] - 1 PER YEAR for 1 Active Vitamin E 1000 UNIT 1 capsule Orally Once a day for 30 day(s) Nov, Active Saline Nasal [place] 0.65 % as directed Nasally every 4 [...] twice daily as needed Apr, Not-Taking Pen Stella 31G X 6 MM icd: e11.65 for [...] before dinner Active FreeStyle Ralph 14 Day [place] - use as directed for co ntinuous [...] day for 7 day(s) October, Not-Taking PROCEDURES from 1966 to 2020-06-14 Procedure Date Ordered Result Body Site Immunization: Flublok Quadrivalent (18 years & older) 0.5mL IM (Influenza) 2020-05-06 N/A ELECTROCARDIOGRAM, COMPLETE EKG 2020-05-06 N/A RESULTS No Results REASON FOR VISIT follow up preop per Dr. Aldrich in chart and paperwork from Dr Artis on desk MEDICAL (GENERAL) HISTORY Type Description Date Medical [...] Notes Treatment Notes Treatm ent Clinical Notes Apr, Preoperative cardiovascular examination (ICD-10 - Z01.810) 1. Urgency of Surgery: Elective 2. Active Cardiac Conditions: Borderline Prolonged QT (483), EKG completed in office, Asymptomatic 3. Revised Cardiac Risk Index: Class II Risk (6.0% 30-day risk of , MD, or Cardiac Arrest). Low Risk 4. Functional Capacity: 4 Mets 5. Clinical Risk Factors: History of Prolonged QT Liver Cirrhosis Uncontrolled Diabetes Mellitus Obesity Recommendations: Risks and benefits of surgery were discussed with the patient Her revised cardiac risk index is Class II risk and overall low risk. Patient is aware that with any surgery there are risks. EKG obtained in the office demonstrated sinus rhythm with a slighlty prolonged QT consistent with previous EKGs. Patients medications have been reviewed and discussed with her. She is to stop taking ibuprofen before her procedure. She is to stop Aspirin 7 days before her surgery. She is to STOP metformin 48 hours before her surgery. She was instructed that she is to continue her medications after her procedure is completed. Patient is in agreement and is medically optimized for her multiple tooth extraction procedure Apr, Cirrhosis of liver without a scites, unspecified hepatic cirrhosis type (ICD-10 - K74.60) Patient has liver cirrhosis. She is up to date with hepatocellular carcinoma surveillence. Last platlet count was 107. Will check coag studies Apr, Uncontrolled type 2 diabetes mellitus with hyperglycemia (ICD-10 - E11.65) Patient has poorly controlled diabetes. She had stopped taking her insulin for the past month or so for unclear reasons. The patient was instructed to resume her medications. We will see her in follow-up for an A1C and medication titration if necessary. Currently taking Basaglar and Sliding scale insulin, actos, steglatro, and metformin. Patient instructed to continue her insulin, hold metformin 48 hours before procedure, and to take actos and steglatro the day before but not on the day of surgery. Patient was instructed to continue all of her medications after her procedure Apr, Diabetic polyneuropathy asso ciated with type 2 diabetes mellitus (ICD-10 - E11.42) Patient is currently on Lyrica. Will try increasing Cymbalta and stopping Lyrica as Lyrica is associated with weigth gain Apr, Influenza vaccine needed (ICD-10 - Z23) PLAN OF TREATMENT Medication Medication Name Sig Start Date Stop Date Steglatro 5 MG 1 tablet Orally Once a day for 30 Duloxetine HCl 60 MG 1 capsule Orally Once a day for 30 day(s) 1 2 Apr, 2020 Treatment Notes Assessment Notes Clinical Notes Preoperative cardiovascular examination 1. Urgency of Surgery: Elective2. Active Cardiac Conditions: Borderline Prolonged QT (483), EKG completed in office, Asymptomatic3. Revised Cardiac Risk Index: Class II Risk (6.0% 30-day risk of , MD, or Cardiac Arrest). Low Risk4. Functional Capacity: 4 Mets5. Clinical Risk Factors:History of Prolonged QTLiver CirrhosisUncontrolled Diabetes MellitusObesityRecommendations: Risks and benefits of surgery were discussed with the patient Her revised cardiac risk index is Class II risk and overall low risk. Patient is aware that with any surgery there are risks. EKG obtained in the office demonstrated sinus rhythm with a slighlty prolonged QT consistent with previous EKGs. Patients medications have been reviewed and discussed with her. She is to stop taking ibuprofen before her procedure. She is to stop Aspirin 7 days before her surgery. She is to STOP metformin 48 hours before her surgery. She was instructed that she is to continue her medications after her procedure is completed. Patient is in agreement and is medically optimized for her multiple tooth extraction procedure Cirrhosis of liver without ascites, unspecified hepatic cirr hosis type Patient has liver cirrhosis. She is up to date with hepatocellular carcinoma surveillence. Last platlet count was 107. Will check coag studies Uncontrolled type 2 diabetes mellitus with hyperglycemia Patient has poorly controlled diabetes. She had stopped taking her insulin for the past month or so for unclear reasons. The patient was instructed to resume her medications. We will see her in follow-up for an A1C and medication titration if necessary. Currently taking Basaglar and Sliding scale insulin, actos, steglatro, and metformin. Patient instructed to continue her insulin, hold metformin 48 hours before procedure, and to take actos and steglatro the day before but not on the day of surgery. Patient was instructed to continue all of her medications after her procedure Diabetic polyneuropathy associated with type 2 diabetes miley itus Patient is currently on Lyrica. Will try increasing Cymbalta and stopping Lyrica as Lyrica is associated with weigth gain Treatment Notes Test Name Order Date CBC - Complete Blood Count 2020-06-14 PT-INR 2020-06-14 Next Appt Details 6 Weeks Reason:F/U diabetes Provider Name:Rohan Meraz, 01:45:00 PM, [address] [place], [address], Follow Up:6 WeeksF/U diabetes Insurance Providers Payer Name Payer Address Payer Phone Insured Name Patient Relati onship to Insured Coverage Start Date Coverage End Date [facility] COMMUNITY PLAN [facility] [address] [facility] [phone] RUSSELL HUGHES self
--- OUTSIDE RECORDS SUMMARY | 2020-08-06 09:15 | CCD ---
Author Author [facility] Organization [facility] Address Unknown Phone Unavailable Care Team Providers Care Operations Officer Trust Department Name Role Phone Rohan Meraz Unavailable PROBLEMS Type Condition ICD9-CM Code [id number] Code Onset Dates Condition S tatus SNOMED Code Notes Problem Anxiety F41.9 Active 21519740 Problem Morbid (severe) obesity due to excess calories E66 .01 Active 502332534 Problem Irregular menstrual bleeding N92.6 Active 801 03497 Problem Suspected sleep apnea G47.30 Active 26137239 Problem Osteoarthritis of right shoulder, unspecified os teoarthritis type M19.011 Active 57192538 Problem Obstructive sleep apnea G47.33 Active 44396945 Problem Iron deficiency anemia, unspecified iron deficiency D50.9 Active 98688606 Problem SÁNCHEZ (nonalcoholic steatohepatitis) K75.81 Acti ve 990249907 Problem Uncontrolled type 2 diabetes mellitus with insulin therapy E11.65 Active 367646338 Problem Gastroesophageal reflux disease without esophagitis K21.9 Active 506504845 Problem Hyperlipidemia, unspecified hyperlipidemia E78.5 Active 32700427 Problem Essential hypertension I10 Active 72235251 Problem Symptomatic menopausal or female climacteric states N95.1 Active 76231107 Problem Type 2 diabetes mellitus wit hout complication, without long-term current use of insulin E11.9 Active 882424025 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 Z79.4 Active 222365036 Problem Globus sensation F45.8 Active 39773813 Problem Pancytopenia D61.818 Active 041612940 Problem Dysphagia, unspecified type R13.10 Active 4073 9000 Problem Iron deficiency anemia, unspecified iron deficiency an emia type D50.9 Active 58932506 Problem TSH (thyroid-stimulating hormone deficiency) E03.8 Active 47284132 Problem Chronic fatigue R53.82 Active 62353367 Problem Other chronic pain G89.29 Active 66501751 Problem Sleep apnea, unspecified type G47.30 Active 73 152086 Problem Type 2 diabetes mellitus without complications E11 .9 Active 609993313 Problem Vaginal bleeding N93.9 Active 347017823 Problem Fatty liver K76.0 Active 032496504 Problem Environmental allergies Z91.09 Active 32611592 7 Problem Other cirrhosis of liver K74.69 Active 8356754 7 Problem Vitamin D deficiency E55.9 Active 45728441 Problem Dysmenorrhea N94.6 Active 316161239 Problem Type 2 diabetes mellitus wit hout complication, unspecified whether fci insulin use E11.9 Active 471298496 Problem Thrombocytopenia D69.6 Active 910898189 Problem Other iron deficiency anemia D50.8 Active 875 33241 Problem Cirrhosis of liver without ascites, unsp ecified hepatic cirrhosis type K74.60 Active 65757110 Problem 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 Active 371358775 Problem Iron deficiency anemia, unspecified D50.9 Acti ve 86529791 Problem Depression, unspecified depression type F32.9 Active 80521960 Problem Generalized anxiety disorder F41.1 Active 218 40773 Problem History of hysterectomy Z90.710 Active 20323131 1 Problem Gross hematuria R31.0 Active 396617022 Problem Diabetic peripheral neuropathy associate d with type 2 diabetes mellitus E11.42 Active 8747498652072 Problem Major depressive disorder, recurrent, moderate F33 .1 Active 578432942 Problem Neuropathy G62.9 Active 984350299 Problem Other allergic rhinitis J30.89 Active 15385797 Problem Urinary tract infection, site not specified N39.0 Active 68976831 Problem Proteinuria R80.9 Active 05240947 Problem Chronic pain due to trauma G89.21 Active 98131 1001 Problem Unspecified cirrhosis of liver K74.60 Active 1 3484800 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.4 Activ e 377502624 Problem Diabetic polyneuropathy associated with type 2 d iabetes mellitus E11.42 Active 843768823 Problem Major depressive disorder, single episode, unspecified F32.9 Active 84497392 Problem Gastroparesis K31.84 Active 869868787 Problem Excessive and frequent menstruation with regular cycle N92.0 Active 557240140 Problem Diabetic autonomic neuropathy associated with type 2 diabetes mellitus E11.43 Active 584390725 Problem Type 2 diabetes mellitus with other diabetic kid soren complication E11.29 Active 49183897 Problem Burning sensation of feet R20.8 Active 631890 01 Problem Type 2 diabetes mellitus with hyperglycemia E11.65 Active 659994446096861 Problem Uncontrolled type 2 diabetes mellitus with hyperglycemia E11.65 Active 068165422 ALLERGIES Allergen (clinical drug ingredient) Drug/Non Drug Allergy do cumented on EMR Reaction Allergy Type Onset Date Status hospital bracelets Rash Non Drug Allergy Active Adhesive Bandages Rash Drug Allergy Activ e ENCOUNTERS from 1965 to 2020-07-24 Encounter Location Date Provider Diagnosis [address] [address] Jun, Rohan Meraz IMMUNIZATIONS Vaccine Route Administration Date [...] Education Language: Question Answer Notes Languages spoken: Armenian Protestant: Question Answer Notes Protestant 33 None Sexual Hx: Question Answer Notes [...] twice daily as needed Apr, Not-Taking Pen [place] 31G X 6 MM icd: e11.65 for [...] day(s) Jul, Not-Taking FreeStyle Ralph 14 Day [place] - use as directed for co ntinuous [...] A DAY for 30 Not-Taking Saline Nasal [place] 0.65 % as directed Nasally every 4 [...] a day for 1 month 08 Oc t2014 Active Insulin Syringe insulin syringe icd:250.02 iddm subcut aneously twice daily for 30 Active Vitamin E 1000 UNIT 1 cap Orally Daily Mar, Not-Taking Lyrica 50 MG 1 capsule Orally TID for 30 days Dec, Not-Taking Metoclopramide HCl 10 MG 1 tablet before meals Orally Twice a day for 30 day(s) Jun, Active Toujeo SoloStar Pens 450 U/1.5mL as directed [...] day(s) Mar, Active FreeStyle Ralph 14 Day [place] - 1 PER YEAR for 1 Active OraMagic Plus 10 % 1 ml as needed Mouth/Throat bid for 30 day(s) Jul, Not-Taking PROCEDURES No Information RESULTS No Results REASON FOR VISIT reglan and nortriptyline MEDICAL (GENERAL) HISTORY Type Description Date Medical [...] MG 1 capsule Orally [facility] daily at [facility] for 30 day(s) Jun, Insurance Providers Payer Name Payer Address Payer Phone Insured Name Patient Relati onship to Insured Coverage Start Date Coverage End Date [facility] COMM[facility] PLAN [facility] [address] [facility] [phone] RUSSELL HUGHES self
--- OUTSIDE RECORDS SUMMARY | 2020-08-06 09:16 | CCD ---
Author Author [facility] Organization [facility] Address Unknown Phone Unavailable Care Team Providers Care Environmental Control Administrator Name Role Phone Andrei REYES MD Unavailable Unavailable Andrei REYES MD Unavailable Unavailable Andrei REYES MD Unavailable Unavailable Andrei REYES MD Unavailable Unavailable Andrei REYES MD Unavailable Unavailable Andrei REYES MD Unavailable Unavailable Andrei REYES MD Unavailable Unavailable Andrei REYES MD Unavailable Unavailable Andrei REYES MD Unavailable Unavailable Andrei REEYS MD Unavailable Unavailable Andrei REYES MD Unavailable Unavailable Andrei REYES MD Unavailable Unavailable Andrei REYES MD Unavailable Unavailable Andrei REYES MD Unavailable Unavailable REYES, L JULIA MD Unavailable Unavailable REYES, L JULIA MD Unavailable Unavailable REYES, L JULIA MD Unavailable Unavailable REYES, L JULIA MD Unavailable Unavailable REYES, L JULIA MD Unavailable Unavailable REYES, L JULIA MD Unavailable Unavailable REYES, L JULIA MD Unavailable Unavailable REYES, L JULIA MD Unavailable Unavailable REYES, L JULIA MD Unavailable Unavailable REYES, L JULIA MD Unavailable Unavailable REYES, L JULIA MD Unavailable Unavailable REYES, L JULIA MD Unavailable Unavailable REYES, L JULIA MD Unavailable Unavailable REYES, L JULIA MD Unavailable Unavailable REYES, L JULIA MD Unavailable Unavailable REYES, L JULIA MD Unavailable Unavailable REYES, L JULIA MD Unavailable Unavailable REYES, L JULIA MD Unavailable Unavailable REYES, L JULIA MD Unavailable Unavailable REYES, L JULIA MD Unavailable Unavailable REYES, L JULIA MD Unavailable Unavailable REYES, L JULIA MD Unavailable Unavailable REYES, L JULIA MD Unavailable Unavailable REYES, L JULIA MD Unavailable Unavailable ERYES, L JULIA MD Unavailable Unavailable REYES, L JULIA MD Unavailable Unavailable REYES, L JULIA MD Unavailable Unavailable REYES, L JULIA MD Unavailable Unavailable REYES, L JULIA MD Unavailable Unavailable REYES, L JULIA MD Unavailable Unavailable REYES, L JULIA MD Unavailable Unavailable REYES, L JULIA MD Unavailable Unavailable REYES, L JULIA MD Unavailable Unavailable REYES, L JULIA MD Unavailable Unavailable REYES, L JULIA MD Unavailable Unavailable REYES, L JULIA MD Unavailable Unavailable REYES, L JULIA MD Unavailable Unavailable REYES, L JULIA MD Unavailable Unavailable REYES, L JULIA MD Unavailable Unavailable REYES, L JULIA MD Unavailable Unavailable REYES, L JULIA MD Unavailable Unavailable REYES, L JULIA MD Unavailable Unavailable REYES, L JULIA MD Unavailable Unavailable REYES, L JULIA MD Unavailable Unavailable REYES, L JULIA MD Unavailable Unavailable REYES, L JULIA MD Unavailable Unavailable REYES, L JULIA MD Unavailable Unavailable REYES, L JULIA MD Unavailable Unavailable REYES, L JULIA MD Unavailable Unavailable REYES, L JULIA MD Unavailable Unavailable REYES, L JULIA MD Unavailable Unavailable REYES, L JULIA MD Unavailable Unavailable REYES, L JULIA MD Unavailable Unavailable REYES, L JULIA MD Unavailable Unavailable REYES, L JULIA MD Unavailable Unavailable REYES, L JULIA MD Unavailable Unavailable REYES, L JULIA MD Unavailable Unavailable JESSICA BARRETT [id number] Unavailable Unavailable Re-disclosure Warning The records that you are about to access may contain information from federally-assisted alcohol or drug abuse programs. If such information is present, then the following federally mandated warning applies: This information has been disclosed to you from records protected by federal confidentiality rules (42 CFR part 2). The federal rules prohibit you from making any further disclosure of this information unless further disclosure is expressly permitted by the written consent of the person to whom it pertains or as otherwise permitted by 42 CFR part 2. A general authorization for the release of medical or other information is NOT sufficient for this purpose. The Federal rules restrict any use of the information to criminally investigate or prosecute any alcohol or drug abuse patient.The records that you are about to access may contain highly sensitive health information, the redisclosure of which is protected by Article 27-F of the [facility] Public Health law. If you continue you may have access to information: Regarding HIV / AIDS; Provided by facilities licensed or operated by the [facility] Office of Mental Health; or Provided by the [facility] Office for People With Developmental Disabilities. If such information is present, then the following [facility] mandated warning applies: This information has been disclosed to you from confidential records which are protected by state law. State law prohibits you from making any further disclosure of this information without the specific written consent of the person to whom it pertains, or as otherwise permitted by law. Any unauthorized further disclosure in violation of state law may result in a fine or retirement sentence or both. A general authorization for the release of medical or other information is NOT sufficient authorization for further disc losure. Allergies and Adverse Reactions Type Description Substance Reaction Status Data Source(s ) [facility] Rash A ctive eCW1 ([facility]) Adhesive Bandages Adhesive Bandages Adhesive Bandages Rash Acti ve eCW1 ([facility]) [facility] Rash A ctive eCW1 ([facility]) Adhesive Bandages Adhesive Bandages Adhesive Bandages Rash Acti ve eCW1 ([facility]) [facility] Rash A ctive eCW1 ([facility]) Adhesive Bandages Adhesive Bandages Adhesive Bandages Rash Acti ve eCW1 ([facility]) Family History Family Member Name Family Member Gender Family Member Status Date o f Status Description Data Source(s) Unknown Unknown Problem MEDENT ([facility]) Unknown Male Problem MEDENT ([facility]) Unknown Male Problem MEDENT ([facility]) () Encounters Encounter Providers Location Date Indications Data Source(s ) [place] [address] [facility] [address] 07/21/2020 12:00:00 AM EST eCW1 ([facility]) [place] [address] [facility] [address] 07/20/2020 12:00:00 AM EST eCW1 ([facility]) [place] [address] [facility] [address] 06/07/2020 12:00:00 AM EST eCW1 ([facility]) [place] [address] [facility] [address] 05/06/2020 12:00:00 AM EST eCW1 ([facility]) [place] [address] [facility] [address] 04/23/2020 12:00:00 AM EDT eCW1 ([facility]) [place] [address] [facility] [address] 04/23/2020 12:00:00 AM EDT eCW1 ([facility]) [place] [address] [facility] [address] 04/19/2020 12:00:00 AM EDT eCW1 ([facility]) [place] [address] [facility] [address] 04/01/2020 12:00:00 AM EDT eCW1 ([facility]) [place] [address] [facility] [address] 01/13/2020 12:00:00 AM EDT eCW1 ([facility]) [place] [address] [facility] [address] 01/12/2020 12:00:00 AM EDT eCW1 ([facility]) [place] [address] [facility] [place] [address] 12/30/2019 12:00:00 AM EDT eCW1 ([facility]) [place] [address] [facility] [address] 12/09/2019 12:00:00 AM EDT eCW1 ([facility]) [place] [address] [facility] [address] 11/27/2019 12:00:00 AM EDT eCW1 ([facility]) Outpatient Attender: JULIA REYES MD 11/26/2019 12:00:00 AM [facility] [address] [facility] [address] 11/06/2019 12:00:00 AM EDT eCW1 ([facility]) [facility] [address] [facility] [address] 10/31/2019 12:00:00 AM EDT eCW1 ([facility]) [facility] Resident [address] [place] [phone] 10/30/2019 12:00:00 AM EDT eCW1 ([facility]) [facility] [address] [facility] [address] 10/29/2019 12:00:00 AM EDT eCW1 ([facility]) [facility] [address] [facility] [address] 10/28/2019 12:00:00 AM EDT eCW1 ([facility]) [facility] [address] [place] [address], [place] [address] 10/28/2019 12:00:00 AM EDT eCW1 ([facility]) [address] [address] 10/27/2019 12:00:00 AM EDT eCW1 ([facility]) [facility] [address] [facility] [address] 10/24/2019 12:00:00 AM EDT eCW1 ([facility]) [facility] [address] [facility] [address] 10/20/2019 12:00:00 AM EDT eCW1 ([facility]) Outpatient Attender: JESSICA BARRETT [id number] 10/13/2019 12:00:00 AM [facility] [address] [facility] [address] 09/16/2019 12:00:00 AM EDT eCW1 ([facility]) [facility] [address] [place] [address] [place] [address] 09/15/2019 12:00:00 AM EDT eCW1 ([facility]) [facility] G[facility] Resident [address] [place] [phone] 09/12/2019 12:00:00 AM EDT eCW1 ([facility]) [facility] [address] [place] [address] [place] [address] 08/28/2019 12:00:00 AM EST eCW1 ([facility]) [facility] Resident [address] [place] [phone] 08/21/2019 12:00:00 AM EST eCW1 ([facility]) [facility] [address] [place] [address] [place] [address] 08/15/2019 12:00:00 AM EST eCW1 ([facility]) [facility] [address] [place] [address] [place] [address] 08/04/2019 12:00:00 AM EST eCW1 ([facility]) [facility] Resident [address] [place] [phone] 07/18/2019 12:00:00 AM EST eCW1 ([facility]) [facility] Resident [address] [place] [phone] 07/10/2019 12:00:00 AM EST eCW1 ([facility]) Immunizations Vaccine Date Status Description Data Source(s) influenza, recombinant, quadrIvalent,injectable, prese rvative free 05/06/2020 05:13:00 PM EST completed eCW1 ([facility]) influenza, recombinant, quadrIvalent,injectable, prese rvative free 05/06/2020 05:13:00 PM EST completed eCW1 ([facility]) influenza, recombinant, quadrIvalent,injectable, prese rvative free 05/06/2020 05:13:00 PM EST completed eCW1 ([facility]) influenza, recombinant, quadrIvalent,injectable, prese rvative free 05/06/2020 05:13:00 PM EST completed eCW1 ([facility]) Medications Medication Brand Name Start Date Product Form Dose Route Admi nistrative Instructions Pharmacy Instructions Status Indications Reaction Description Data Source(s) 25 mg 07/24/2020 12:00:00 AM EST capsule 30 TAKE ONE CAPSULE BY MOUTH AT BEDTIME TAKE ONE CAPSULE BY MOUTH AT BEDTIME SOLD: 07/25/2020 [facility] 10 mg 07/24/2020 12:00:00 AM EST tablet 60 TAKE ONE TABLET BY MOUTH TWICE A DAY BEFORE MEALS TAKE ONE TABLET BY MOUTH TWICE A DAY BEFORE MEALS SOLD : 07/25/2020 [facility] tizanidine 4 MG Oral Tablet TIZANIDINE HCL 07/16/2020 12:00:00 AM EST tablet 30 TAKE ONE TABLET BY MOUTH AT BEDTIME NEEDED FOR SPAS MS TAKE ONE TABLET BY MOUTH AT BEDTIME NEEDED FOR SPASMS SOLD: 07/17/2020 [facility] Metoclopramide 10 MG Oral Tablet Metoclopramide HCl 10 MG Metoclopramide HCl 10 MG 07/15/2020 12:00:00 AM EST 1.0 {tablet_before_meals} active Metoclopramide HCl 10 MG eCW1 ([facility]) Nortriptyline 25 MG Oral Capsule Nortriptyline HCl 25 MG Nortriptyline HCl 25 MG 07/15/2020 12:00:00 AM EST 1.0 {capsule} acti ve Nortriptyline HCl 25 MG eCW1 ([facility]) Metoclopramide 10 MG Oral Tablet Metoclopramide HCl 10 MG Metoclopramide HCl 10 MG 07/15/2020 12:00:00 AM EST 1.0 {tablet_before_meals} active Metoclopramide HCl 10 MG eCW1 ([facility]) Nortriptyline 25 MG Oral Capsule Nortriptyline HCl 25 MG Nortriptyline HCl 25 MG 07/15/2020 12:00:00 AM EST 1.0 {capsule} acti ve Nortriptyline HCl 25 MG eCW1 ([facility]) 10 mg 07/12/2020 12:00:00 AM EST capsule 30 TAKE ONE CAPSULE BY MOUTH AT BEDTIME TAKE ONE CAPSULE BY MOUTH AT BEDTIME SOLD: 07/14/2020 [facility] 0.12 % 07/07/2020 12:00:00 AM EST mouthwash 473 RINSE MOUTH WITH 15 ML (1 CAPFUL) FOR 30 SECONDS IN THE MORNING AND EVENING AFTER TOOTHBRUSHING, SPIT AFTER RINSING, DO NOT SWALLOW RINSE MOUTH WITH 15 ML (1 CAPFUL) FOR 30 SECONDS IN THE MORNING AND EVENING AFTER TOOTHBRUSHING, SPIT AFTER RINSING, DO NOT SWALLOW SOLD: 07/14/2020 [facility] 800 mg 07/07/2020 12:00:00 AM EST tablet 20 TAKE ONE TABLET BY MOUTH EVERY 8 HOURS TAKE ONE TABLET BY MOUTH EVERY 8 HOURS SOLD: 07/14/2020 [facility] 0.12 % 07/07/2020 12:00:00 AM EST mouthwash 473 RINSE MOUTH WITH 15 ML (1 CAPFUL) FOR 30 SECONDS IN THE MORNING AND EVENING AFTER TOOTHBRUSHING, SPIT AFTER RINSING, DO NOT SWALLOW RINSE MOUTH WITH 15 ML (1 CAPFUL) FOR 30 SECONDS IN THE MORNING AND EVENING AFTER TOOTHBRUSHING, SPIT AFTER RINSING, DO NOT SWALLOW SOLD: 07/30/2020 [facility] 5-325 mg 07/07/2020 12:00:00 AM EST tablet 16 TAKE ONE TABLET BY MOUTH EVERY 6 HOURS NEEDED FOR PAIN MAXIMUM DAILY DOSE = 4 TABLETS TAKE ONE TABLET BY MOUTH EVERY 6 HOURS NEEDED FOR PAIN MAXIMUM DAILY DOSE = 4 TABLETS SOLD: 07/14/2020 [facility] tizanidine 4 MG Oral Tablet TIZANIDINE HCL 06/21/2020 12:00:00 AM EST tablet 30 TAKE ONE TABLET BY MOUTH AT BEDTIME NEEDED FOR SPAS MS TAKE ONE TABLET BY MOUTH AT BEDTIME NEEDED FOR SPASMS SOLD: 06/22/2020 [facility] 800 mg 05/31/2020 12:00:00 AM EST tablet 20 TAKE ONE TABLET BY MOUTH EVERY 8 HOURS TAKE ONE TABLET BY MOUTH EVERY 8 HOURS SOLD: 05/31/2020 [facility] 5-325 mg 05/31/2020 12:00:00 AM EST tablet 16 TAKE ONE TABLET BY MOUTH EVERY 6 HOURS NEEDED FOR PAIN MAXIMUM DAILY DOSE = 4 TAKE ONE TABLET BY MOUTH EVERY 6 HOURS NEEDED FOR PAIN MAXIMUM DAILY DOSE = 4 SOLD: 05/31/2020 [facility] tizanidine 4 MG Oral Tablet TIZANIDINE HCL 05/24/2020 12:00:00 AM EST tablet 30 TAKE ONE TABLET BY MOUTH AT BEDTIME NEEDED FOR SPAS MS TAKE ONE TABLET BY MOUTH AT BEDTIME NEEDED FOR SPASMS SOLD: 05/25/2020 [facility] 5 mg 05/13/2020 12:00:00 AM EST tablet 30 TAKE ONE TABLET BY MOUTH EVERY DAY TAKE ONE TABLET BY MOUTH EVERY DAY SOLD: 05/15/2020 [facility] duloxetine 60 MG Delayed Release Oral Capsule Duloxeti ne HCl 60 MG Duloxetine HCl 60 MG 05/06/2020 12:00:00 AM EST 1.0 {capsule} a ctive Duloxetine HCl 60 MG eCW1 ([facility]) duloxetine 60 MG Delayed Release Oral Capsule Duloxeti ne HCl 60 MG Duloxetine HCl 60 MG 05/06/2020 12:00:00 AM EST 1.0 {capsule} a ctive Duloxetine HCl 60 MG eCW1 ([facility]) duloxetine 60 MG Delayed Release Oral Capsule Duloxeti ne HCl 60 MG Duloxetine HCl 60 MG 05/06/2020 12:00:00 AM EST 1.0 {capsule} a ctive Duloxetine HCl 60 MG eCW1 ([facility]) duloxetine 60 MG Delayed Release Oral Capsule Duloxeti ne HCl 60 MG Duloxetine HCl 60 MG 05/06/2020 12:00:00 AM EST 1.0 {capsule} a ctive Duloxetine HCl 60 MG eCW1 ([facility]) 5-325 mg 2020 12:00:00 AM EDT tablet 16 TAKE ONE TABLET BY MOUTH EVERY 6 HOURS NEEDED FOR PAIN, MAXIMUM DAILY DOSE = 4 TABLETS TAKE ONE TABLET BY MOUTH EVERY 6 HOURS NEEDED FOR PAIN, MAXIMUM DAILY DOSE = 4 TABLETS SOLD: 2020 [facility] 800 mg 2020 12:00:00 AM EDT tablet 20 TAKE ONE TABLET BY MOUTH EVERY 8 HOURS TAKE ONE TABLET BY MOUTH EVERY 8 HOURS SOLD: 2020 [facility] Hydrochlorothiazide 12.5 MG Oral Tablet HYDROCHLOROTHIAZIDE 04/17/2020 12:00:00 AM EDT tablet 30 TAKE ONE TABLET BY MOUTH MONIQUE DAY TAKE ONE TABLET BY MOUTH EVERY DAY SOLD: 06/22/2020 [facility] Hydrochlorothiazide 12.5 MG Oral Tablet HYDROCHLOROTHIAZIDE 04/17/2020 12:00:00 AM EDT tablet 30 TAKE ONE TABLET BY MOUTH MONIQUE DAY TAKE ONE TABLET BY MOUTH EVERY DAY SOLD: 05/22/2020 [facility] Hydrochlorothiazide 12.5 MG Oral Tablet HYDROCHLOROTHIAZIDE 04/17/2020 12:00:00 AM EDT tablet 30 TAKE ONE TABLET BY MOUTH MONIQUE DAY TAKE ONE TABLET BY MOUTH EVERY DAY SOLD: 2020 [facility] 100 unit/mL (3 mL) 04/17/2020 12:00:00 AM EDT insulin pen 15 USE 70 UNITS SUBCUTANEOUS IN THE MORNING AND 90 UNITS IN THE EVENING USE 70 UNITS SUBCUTANEOUS IN THE MORNING AND 90 UNITS IN THE EVENING SOLD: 2020 [facility] 100 unit/mL (3 mL) 04/17/2020 12:00:00 AM EDT insulin pen 15 USE 70 UNITS SUBCUTANEOUS IN THE MORNING AND 90 UNITS IN THE EVENING USE 70 UNITS SUBCUTANEOUS IN THE MORNING AND 90 UNITS IN THE EVENING SOLD: 07/01/2020 [facility] 100 unit/mL (3 mL) 04/17/2020 12:00:00 AM EDT insulin pen 15 USE 70 UNITS SUBCUTANEOUS IN THE MORNING AND 90 UNITS IN THE EVENING USE 70 UNITS SUBCUTANEOUS IN THE MORNING AND 90 UNITS IN THE EVENING SOLD: 07/14/2020 [facility] 100 mg 04/08/2020 12:00:00 AM EDT capsule 30 TAKE ONE CAPSULE BY MOUTH EVERY DAY NEEDED TAKE ONE CAPSULE BY MOUTH EVERY DAY NEEDED SOLD: 07/14/2020 [facility] 100 mg 04/08/2020 12:00:00 AM EDT capsule 30 TAKE ONE CAPSULE BY MOUTH EVERY DAY NEEDED TAKE ONE CAPSULE BY MOUTH EVERY DAY NEEDED SOLD: 05/15/2020 [facility] 100 mg 04/08/2020 12:00:00 AM EDT capsule 30 TAKE ONE CAPSULE BY MOUTH EVERY DAY NEEDED TAKE ONE CAPSULE BY MOUTH EVERY DAY NEEDED SOLD: 04/12/2020 [facility] 100 mg 04/08/2020 12:00:00 AM EDT capsule 30 TAKE ONE CAPSULE BY MOUTH EVERY DAY NEEDED TAKE ONE CAPSULE BY MOUTH EVERY DAY NEEDED SOLD: 06/13/2020 [facility] FreeStyle Ralph 14 Day Sensor - FreeStyle Ralph 14 Day Senso r 04/07/2020 12:00:00 AM EDT active FreeStyl e Ralph 14 Day Sensor - eCW1 ([facility]) FreeStyle Ralph 14 Day Perry - FreeStyle Ralph 14 Day Reade r 04/07/2020 12:00:00 AM EDT active FreeStyl e Ralph 14 Day Perry - eCW1 ([facility]) FreeStyle Ralph 14 Day Perry - FreeStyle Ralph 14 Day Reade r 04/07/2020 12:00:00 AM EDT active FreeStyl e Ralph 14 Day Perry - eCW1 ([facility]) FreeStyle Ralph 14 Day Perry - FreeStyle Ralph 14 Day Reade r 04/07/2020 12:00:00 AM EDT active FreeStyl e Ralph 14 Day Perry - eCW1 ([facility]) FreeStyle Ralph 14 Day Sensor - FreeStyle Ralph 14 Day Senso r 04/07/2020 12:00:00 AM EDT active FreeStyl e Ralph 14 Day Sensor - eCW1 ([facility]) FreeStyle Ralph 14 Day Sensor - FreeStyle Ralph 14 Day Senso r 04/07/2020 12:00:00 AM EDT active FreeStyl e Ralph 14 Day Sensor - eCW1 ([facility]) FreeStyle Rlaph 14 Day Perry - FreeStyle Ralph 14 Day Reade 04/07/2020 12:00:00 AM EDT active FreeStyl e Ralph 14 Day Perry - eCW1 ([facility]) FreeStyle Ralph 14 Day Perry - FreeStyle Ralph 14 Day Reade r 04/07/2020 12:00:00 AM EDT active FreeStyl e Ralph 14 Day Perry - eCW1 ([facility]) FreeStyle Ralph 14 Day Sensor - FreeStyle Ralph 14 Day Senso r 04/07/2020 12:00:00 AM EDT active FreeStyl e Ralph 14 Day Sensor - eCW1 ([facility]) FreeStyle Ralph 14 Day Sensor - FreeStyle Ralph 14 Day Senso r 04/07/2020 12:00:00 AM EDT active FreeStyl e Ralph 14 Day Sensor - eCW1 ([facility]) FreeStyle Ralph 14 Day Sensor - FreeStyle Ralph 14 Day Senso r 04/07/2020 12:00:00 AM EDT active FreeStyl e Ralph 14 Day Sensor - eCW1 ([facility]) FreeStyle Ralph 14 Day Sensor - FreeStyle Ralph 14 Day Senso r 04/07/2020 12:00:00 AM EDT active FreeStyl e Ralph 14 Day Sensor - eCW1 ([facility]) FreeStyle Ralph 14 Day Sensor - FreeStyle Ralph 14 Day Senso r 04/07/2020 12:00:00 AM EDT active FreeStyl e Ralph 14 Day Sensor - eCW1 ([facility]) FreeStyle Ralph 14 Day Perry - FreeStyle Ralph 14 Day Reade 04/07/2020 12:00:00 AM EDT active FreeStyl e Ralph 14 Day Perry - eCW1 ([facility]) FreeStyle Ralph 14 Day Perry - FreeStyle Ralph 14 Day Reade r 04/07/2020 12:00:00 AM EDT active FreeStyl e Ralph 14 Day Perry - eCW1 ([facility]) FreeStyle Ralph 14 Day Perry - FreeStyle Ralph 14 Day Reade r 04/07/2020 12:00:00 AM EDT active FreeStyl e Ralph 14 Day Perry - eCW1 ([facility]) 1,000 unit 04/05/2020 12:00:00 AM EDT capsule 30 TAKE ONE CAPSULE BY MOUTH EVERY DAY TAKE ONE CAPSULE BY MOUTH EVERY DAY SOLD: 04/12/2020 [facility] 1,000 unit 04/05/2020 12:00:00 AM EDT capsule 30 TAKE ONE CAPSULE BY MOUTH EVERY DAY TAKE ONE CAPSULE BY MOUTH EVERY DAY SOLD: 05/15/2020 [facility] 1,000 unit 04/05/2020 12:00:00 AM EDT capsule 30 TAKE ONE CAPSULE BY MOUTH EVERY DAY TAKE ONE CAPSULE BY MOUTH EVERY DAY SOLD: 06/22/2020 [facility] 81 mg 04/02/2020 12:00:00 AM EDT tablet,chewable 30 CHEW ONE TABLET BY MOUTH EVERY DAY CHEW ONE TABLET BY MOUTH EVERY DAY SOLD: 04/03/2020 [facility] 325 mg (65 mg iron) 04/02/2020 12:00:00 AM EDT tablet 30 TAKE ONE TABLET BY MOUTH EVERY DAY TAKE ONE TABLET BY MOUTH EVERY DAY SOLD: 06/10/2020 [facility] 325 mg (65 mg iron) 04/02/2020 12:00:00 AM EDT tablet 30 TAKE ONE TABLET BY MOUTH EVERY DAY TAKE ONE TABLET BY MOUTH EVERY DAY SOLD: 05/06/2020 [facility] 325 mg (65 mg iron) 04/02/2020 12:00:00 AM EDT tablet 30 TAKE ONE TABLET BY MOUTH EVERY DAY TAKE ONE TABLET BY MOUTH EVERY DAY SOLD: 04/03/2020 [facility] 81 mg 04/02/2020 12:00:00 AM EDT tablet,chewable 30 CHEW ONE TABLET BY MOUTH EVERY DAY CHEW ONE TABLET BY MOUTH EVERY DAY SOLD: 07/17/2020 [facility] 81 mg 04/02/2020 12:00:00 AM EDT tablet,chewable 30 CHEW ONE TABLET BY MOUTH EVERY DAY CHEW ONE TABLET BY MOUTH EVERY DAY SOLD: 06/10/2020 [facility] 325 mg (65 mg iron) 04/02/2020 12:00:00 AM EDT tablet 30 TAKE ONE TABLET BY MOUTH EVERY DAY TAKE ONE TABLET BY MOUTH EVERY DAY SOLD: 07/14/2020 [facility] 81 mg 04/02/2020 12:00:00 AM EDT tablet,chewable 30 CHEW ONE TABLET BY MOUTH EVERY DAY CHEW ONE TABLET BY MOUTH EVERY DAY SOLD: 05/06/2020 [facility] 4 mg 04/02/2020 12:00:00 AM EDT tablet 30 TAKE ONE TABLET BY MOUTH AT BEDTIME NEEDED FOR SPASMS TAKE ONE TABLET BY MOUTH AT BEDTIME N EEDED FOR SPASMS SOLD: 04/03/2020 [facility] 100 unit/mL (3 mL) 03/24/2020 12:00:00 AM EDT insulin pen 45 INJECT 70 UNITS UNDER SKIN IN THE MORNING AND 90 UNITS IN THE EVENING INJECT 70 UNITS UNDER SKIN IN THE MORNING AND 90 UNITS IN THE EVENING SOLD: 03/25/2020 [facility] 800 mg 03/12/2020 12:00:00 AM EDT tablet 20 TAKE ONE TABLET BY MOUTH EVERY 8 HOURS TAKE ONE TABLET BY MOUTH EVERY 8 HOURS SOLD: 03/13/2020 [facility] 5-325 mg 03/12/2020 12:00:00 AM EDT tablet 16 TAKE ONE TABLET BY MOUTH EVERY 6 HOURS NEEDED FOR PAIN MAXIMUM DAILY DOSE = 4 TAKE ONE TABLET BY MOUTH EVERY 6 HOURS NEEDED FOR PAIN MAXIMUM DAILY DOSE = 4 SOLD: 03/13/2020 [facility] Metformin hydrochloride 1000 MG Oral Tablet 1,000 mg METFORM IN HCL 03/10/2020 12:00:00 AM EDT tablet 60 TAKE ONE TABLET BY MOUTH TWICE A DAY WITH FOOD TAKE ONE TABLET BY MOUTH TWICE A DAY WITH FOOD SOLD: 04/12/2020 [facility] Metformin hydrochloride 1000 MG Oral Tablet 1,000 mg METFORM IN HCL 03/10/2020 12:00:00 AM EDT tablet 60 TAKE ONE TABLET BY MOUTH TWICE A DAY WITH FOOD TAKE ONE TABLET BY MOUTH TWICE A DAY WITH FOOD SOLD: 03/11/2020 [facility] pioglitazone 30 MG Oral Tablet PIOGLITAZONE HCL 03/06/2020 12:00 :00 AM EDT tablet 30 TAKE ONE TABLET BY MOUTH EVERY D AY TAKE ONE TABLET BY MOUTH EVERY DAY SOLD: 07/14/2020 [facility] pioglitazone 30 MG Oral Tablet PIOGLITAZONE HCL 03/06/2020 12:00 :00 AM EDT tablet 30 TAKE ONE TABLET BY MOUTH EVERY D AY TAKE ONE TABLET BY MOUTH EVERY DAY SOLD: 03/11/2020 [facility] pioglitazone 30 MG Oral Tablet PIOGLITAZONE HCL 03/06/2020 12:00 :00 AM EDT tablet 30 TAKE ONE TABLET BY MOUTH EVERY D AY TAKE ONE TABLET BY MOUTH EVERY DAY SOLD: 05/15/2020 [facility] pioglitazone 30 MG Oral Tablet PIOGLITAZONE HCL 03/06/2020 12:00 :00 AM EDT tablet 30 TAKE ONE TABLET BY MOUTH EVERY D AY TAKE ONE TABLET BY MOUTH EVERY DAY SOLD: 04/12/2020 [facility] pioglitazone 30 MG Oral Tablet PIOGLITAZONE HCL 03/06/2020 12:00 :00 AM EDT tablet 30 TAKE ONE TABLET BY MOUTH EVERY D AY TAKE ONE TABLET BY MOUTH EVERY DAY SOLD: 06/13/2020 [facility] 4 mg 03/04/2020 12:00:00 AM EDT tablet 30 TAKE ONE TABLET BY MOUTH AT BEDTIME NEEDED FOR SPASMS TAKE ONE TABLET BY MOUTH AT BEDTIME N EEDED FOR SPASMS SOLD: 03/06/2020 [facility] 5-325 mg 02/26/2020 12:00:00 AM EDT tablet 16 TAKE ONE TABLET BY MOUTH EVERY 6 HOURS NEEDED FOR PAIN, MAXIMUM DAILY DOSE = 4 TABLETS TAKE ONE TABLET BY MOUTH EVERY 6 HOURS NEEDED FOR PAIN, MAXIMUM DAILY DOSE = 4 TABLETS SOLD: 02/27/2020 [facility] 40 mg 02/20/2020 12:00:00 AM EDT capsule,delayed release (DR/EC) 60 TAKE ONE CAPSULE BY MOUTH TWICE A DAY TAKE ONE CAPSULE BY MOUTH TWICE A DAY SOLD: 03/22/2020 [facility] 40 mg 02/20/2020 12:00:00 AM EDT capsule,delayed release (DR/EC) 60 TAKE ONE CAPSULE BY MOUTH TWICE A DAY TAKE ONE CAPSULE BY MOUTH TWICE A DAY SOLD: 02/22/2020 [facility] 40 mg 02/20/2020 12:00:00 AM EDT capsule,delayed release (DR/EC) 60 TAKE ONE CAPSULE BY MOUTH TWICE A DAY TAKE ONE CAPSULE BY MOUTH TWICE A DAY SOLD: 07/25/2020 [facility] 40 mg 02/20/2020 12:00:00 AM EDT capsule,delayed release (DR/EC) 60 TAKE ONE CAPSULE BY MOUTH TWICE A DAY TAKE ONE CAPSULE BY MOUTH TWICE A DAY SOLD: 06/22/2020 [facility] 40 mg 02/20/2020 12:00:00 AM EDT capsule,delayed release (DR/EC) 60 TAKE ONE CAPSULE BY MOUTH TWICE A DAY TAKE ONE CAPSULE BY MOUTH TWICE A DAY SOLD: 05/22/2020 [facility] 40 mg 02/20/2020 12:00:00 AM EDT capsule,delayed release (DR/EC) 60 TAKE ONE CAPSULE BY MOUTH TWICE A DAY TAKE ONE CAPSULE BY MOUTH TWICE A DAY SOLD: 2020 [facility] 800 mg 02/20/2020 12:00:00 AM EDT tablet 20 TAKE 1 TABLET BY MOUTH EVERY 8 HOURS TAKE 1 TABLET BY MOUTH EVERY 8 HOURS SOLD: 02/22/2020 [facility] atorvastatin 80 MG Oral Tablet ATORVASTATIN CALCIUM 02/11/2020 1 2:00:00 AM EDT tablet 30 TAKE ONE TABLET BY MOUTH EVERY D AY TAKE ONE TABLET BY MOUTH EVERY DAY SOLD: 03/18/2020 [facility] atorvastatin 80 MG Oral Tablet ATORVASTATIN CALCIUM 02/11/2020 1 2:00:00 AM EDT tablet 30 TAKE ONE TABLET BY MOUTH EVERY D AY TAKE ONE TABLET BY MOUTH EVERY DAY SOLD: 04/16/2020 [facility] atorvastatin 80 MG Oral Tablet ATORVASTATIN CALCIUM 02/11/2020 1 2:00:00 AM EDT tablet 30 TAKE ONE TABLET BY MOUTH EVERY D AY TAKE ONE TABLET BY MOUTH EVERY DAY SOLD: 02/16/2020 [facility] atorvastatin 80 MG Oral Tablet ATORVASTATIN CALCIUM 02/11/2020 1 2:00:00 AM EDT tablet 30 TAKE ONE TABLET BY MOUTH EVERY D AY TAKE ONE TABLET BY MOUTH EVERY DAY SOLD: 05/15/2020 [facility] atorvastatin 80 MG Oral Tablet ATORVASTATIN CALCIUM 02/11/2020 1 2:00:00 AM EDT tablet 30 TAKE ONE TABLET BY MOUTH EVERY D AY TAKE ONE TABLET BY MOUTH EVERY DAY SOLD: 06/13/2020 [facility] 4 mg 02/06/2020 12:00:00 AM EDT tablet 30 TAKE ONE TABLET BY MOUTH AT BEDTIME NEEDED FOR SPASMS TAKE ONE TABLET BY MOUTH AT BEDTIME N EEDED FOR SPASMS SOLD: 02/07/2020 [facility] 10 mg 02/03/2020 12:00:00 AM EDT tablet 30 TAKE ONE TABLET BY MOUTH EVERY DAY TAKE ONE TABLET BY MOUTH EVERY DAY SOLD: 04/03/2020 [facility] 10 mg 02/03/2020 12:00:00 AM EDT tablet 30 TAKE ONE TABLET BY MOUTH EVERY DAY TAKE ONE TABLET BY MOUTH EVERY DAY SOLD: 02/07/2020 [facility] 10 mg 02/03/2020 12:00:00 AM EDT tablet 30 TAKE ONE TABLET BY MOUTH EVERY DAY TAKE ONE TABLET BY MOUTH EVERY DAY SOLD: 03/06/2020 [facility] 100 unit/mL (3 mL) 01/30/2020 12:00:00 AM EDT insulin pen 30 INJCET 70 UNITS IN THE MORNING THEN 90 UNITS IN THE EVENING INJCET 70 UNITS IN THE MORNING THEN 90 UNITS IN THE EVENING SOLD: 01/30/2020 [facility] 100 unit/mL (3 mL) 01/30/2020 12:00:00 AM EDT insulin pen 30 INJCET 70 UNITS IN THE MORNING THEN 90 UNITS IN THE EVENING INJCET 70 UNITS IN THE MORNING THEN 90 UNITS IN THE EVENING SOLD: 03/06/2020 [facility] 100 unit/mL (3 mL) 01/30/2020 12:00:00 AM EDT insulin pen 30 INJCET 70 UNITS IN THE MORNING THEN 90 UNITS IN THE EVENING INJCET 70 UNITS IN THE MORNING THEN 90 UNITS IN THE EVENING SOLD: 02/16/2020 [facility] 12.5 mg 01/16/2020 12:00:00 AM EDT tablet 30 TAKE ONE TABLET BY MOUTH EVERY DAY TAKE ONE TABLET BY MOUTH EVERY DAY SOLD: 01/17/2020 [facility] Hydrochlorothiazide 12.5 MG Oral Tablet HYDROCHLOROTHIAZIDE 01/16/2020 12:00:00 AM EDT tablet 30 TAKE ONE TABLET BY MOUTH MONIQUE TAKE ONE TABLET BY MOUTH EVERY DAY SOLD: 03/18/2020 [facility] Hydrochlorothiazide 12.5 MG Oral Tablet HYDROCHLOROTHIAZIDE 01/16/2020 12:00:00 AM EDT tablet 30 TAKE ONE TABLET BY MOUTH TAKE ONE TABLET BY MOUTH EVERY DAY SOLD: 02/16/2020 [facility] 4 mg 01/11/2020 12:00:00 AM EDT tablet 30 TAKE ONE TABLET BY MOUTH AT BEDTIME NEEDED FOR SPASMS TAKE ONE TABLET BY MOUTH AT BEDTIME N EEDED FOR SPASMS SOLD: 01/17/2020 [facility] 10 mg 01/10/2020 12:00:00 AM EDT capsule 30 TAKE ONE CAPSULE BY MOUTH AT BEDTIME TAKE ONE CAPSULE BY MOUTH AT BEDTIME SOLD: 06/13/2020 [facility] 10 mg 01/10/2020 12:00:00 AM EDT capsule 30 TAKE ONE CAPSULE BY MOUTH AT BEDTIME TAKE ONE CAPSULE BY MOUTH AT BEDTIME SOLD: 01/17/2020 [facility] 10 mg 01/10/2020 12:00:00 AM EDT capsule 30 TAKE ONE CAPSULE BY MOUTH AT BEDTIME TAKE ONE CAPSULE BY MOUTH AT BEDTIME SOLD: 03/18/2020 [facility] 5 mg 01/10/2020 12:00:00 AM EDT tablet 30 TAKE ONE TABLET BY MOUTH EVERY DAY TAKE ONE TABLET BY MOUTH EVERY DAY SOLD: 02/16/2020 [facility] 10 mg 01/10/2020 12:00:00 AM EDT capsule 30 TAKE ONE CAPSULE BY MOUTH AT BEDTIME TAKE ONE CAPSULE BY MOUTH AT BEDTIME SOLD: 02/16/2020 [facility] 10 mg 01/10/2020 12:00:00 AM EDT capsule 30 TAKE ONE CAPSULE BY MOUTH AT BEDTIME TAKE ONE CAPSULE BY MOUTH AT BEDTIME SOLD: 05/15/2020 [facility] 5 mg 01/10/2020 12:00:00 AM EDT tablet 30 TAKE ONE TABLET BY MOUTH EVERY DAY TAKE ONE TABLET BY MOUTH EVERY DAY SOLD: 01/17/2020 [facility] 10 mg 01/10/2020 12:00:00 AM EDT capsule 30 TAKE ONE CAPSULE BY MOUTH AT BEDTIME TAKE ONE CAPSULE BY MOUTH AT BEDTIME SOLD: 04/16/2020 [facility] 5 mg 01/10/2020 12:00:00 AM EDT tablet 30 TAKE ONE TABLET BY MOUTH EVERY DAY TAKE ONE TABLET BY MOUTH EVERY DAY SOLD: 04/16/2020 [facility] 5 mg 01/10/2020 12:00:00 AM EDT tablet 30 TAKE ONE TABLET BY MOUTH EVERY DAY TAKE ONE TABLET BY MOUTH EVERY DAY SOLD: 03/18/2020 [facility] pioglitazone 30 MG Oral Tablet PIOGLITAZONE HCL 12/25/2019 12:00 :00 AM EDT tablet 30 TAKE ONE TABLET BY MOUTH EVERY D AY TAKE ONE TABLET BY MOUTH EVERY DAY SOLD: 01/30/2020 [facility] pioglitazone 30 MG Oral Tablet PIOGLITAZONE HCL 12/25/2019 12:00 :00 AM EDT tablet 30 TAKE ONE TABLET BY MOUTH EVERY D AY TAKE ONE TABLET BY MOUTH EVERY DAY SOLD: 12/29/2019 [facility] 300-30 mg 12/22/2019 12:00:00 AM EDT tablet 12 TAKE 1 TABLET BY MOUTH EVERY 6 TO 8 HOURS NEEDED FOR PAIN MAXIMUM DAILY DOSE = 4 TABLETS TAKE 1 TABLET BY MOUTH EVERY 6 TO 8 HOURS NEEDED FOR PAIN MAXIMUM DAILY DOSE = 4 TABLETS SOLD: 12/22/2019 [facility] 500 mg 12/18/2019 12:00:00 AM EDT capsule 30 TAKE ONE CAPSULE BY MOUTH THREE TIMES A DAY TAKE ONE CAPSULE BY MOUTH THREE TIMES A DAY SOLD: 12/19/2019 [facility] 40 mg 12/12/2019 12:00:00 AM EDT capsule,delayed release (DR/EC) 60 TAKE 1 CAPSULE BY MOUTH TWO TIMES A DAY TAKE 1 CAPSULE BY MOUTH TWO TIMES A DAY SOLD: 12/13/2019 [facility] 40 mg 12/12/2019 12:00:00 AM EDT capsule,delayed release (DR/EC) 60 TAKE 1 CAPSULE BY MOUTH TWO TIMES A DAY TAKE 1 CAPSULE BY MOUTH TWO TIMES A DAY SOLD: 01/10/2020 [facility] 100 mg 12/06/2019 12:00:00 AM EDT capsule 30 TAKE ONE CAPSULE BY MOUTH EVERY DAY NEEDED TAKE ONE CAPSULE BY MOUTH EVERY DAY NEEDED SOLD: 12/07/2019 [facility] 4 mg 12/06/2019 12:00:00 AM EDT tablet 30 TAKE ONE TABLET BY MOUTH AT BEDTIME NEEDED FOR SPASMS TAKE ONE TABLET BY MOUTH AT BEDTIME N EEDED FOR SPASMS SOLD: 12/07/2019 [facility] 100 mg 12/06/2019 12:00:00 AM EDT capsule 30 TAKE ONE CAPSULE BY MOUTH EVERY DAY NEEDED TAKE ONE CAPSULE BY MOUTH EVERY DAY NEEDED SOLD: 02/07/2020 [facility] 100 mg 12/06/2019 12:00:00 AM EDT capsule 30 TAKE ONE CAPSULE BY MOUTH EVERY DAY NEEDED TAKE ONE CAPSULE BY MOUTH EVERY DAY NEEDED SOLD: 01/05/2020 [facility] 100 mg 12/06/2019 12:00:00 AM EDT capsule 30 TAKE ONE CAPSULE BY MOUTH EVERY DAY NEEDED TAKE ONE CAPSULE BY MOUTH EVERY DAY NEEDED SOLD: 03/06/2020 [facility] 0.12 % 11/21/2019 12:00:00 AM EDT mouthwash 473 SWISH MOUTH WITH 3 TEASPOONFULS (15 ML) EVERY MORNING AND EVENING FOLLOWING BRUSHING AND FLOSSING SWISH MOUTH WITH 3 TEASPOONFULS (15 ML) EVERY MORNING AND EVENING FOLLOWING BRUSHING AND FLOSSING SOLD: 11/21/2019 [facility] 800 mg 11/13/2019 12:00:00 AM EDT tablet 12 TAKE ONE TABLET BY MOUTH EVERY 6 HOURS NEEDED FOR PAIN TAKE ONE TABLET BY MOUTH EVERY 6 HOURS A S NEEDED FOR PAIN SOLD: 11/13/2019 [facility] 500 mg 11/13/2019 12:00:00 AM EDT capsule 30 TAKE ONE CAPSULE BY MOUTH THREE TIMES A DAY TAKE ONE CAPSULE BY MOUTH THREE TIMES A DAY SOLD: 11/13/2019 [facility] 1,000 mg 11/07/2019 12:00:00 AM EDT tablet 60 TAKE ONE TABLET BY MOUTH TWICE A DAY WITH MEALS TAKE ONE TABLET BY MOUTH TWICE A DAY WITH MEALS SOLD: 12/07/2019 [facility] 1,000 mg 11/07/2019 12:00:00 AM EDT tablet 60 TAKE ONE TABLET BY MOUTH TWICE A DAY WITH MEALS TAKE ONE TABLET BY MOUTH TWICE A DAY WITH MEALS SOLD: 11/08/2019 [facility] 1,000 mg 11/07/2019 12:00:00 AM EDT tablet 60 TAKE ONE TABLET BY MOUTH TWICE A DAY WITH MEALS TAKE ONE TABLET BY MOUTH TWICE A DAY WITH MEALS SOLD: 01/05/2020 [facility] 1,000 mg 11/07/2019 12:00:00 AM EDT tablet 60 TAKE ONE TABLET BY MOUTH TWICE A DAY WITH MEALS TAKE ONE TABLET BY MOUTH TWICE A DAY WITH MEALS SOLD: 02/07/2020 [facility] FreeStyle Ralph 14 Day Sensor - FreeStyle Ralph 14 Day Senso r - 11/07/2019 12:00:00 AM EDT active as direc [place] eCW1 ([facility]) 4 mg 11/04/2019 12:00:00 AM EDT tablet 30 TAKE ONE TABLET BY MOUTH AT BEDTIME NEEDED FOR SPASMS TAKE ONE TABLET BY MOUTH AT BEDTIME N EEDED FOR SPASMS SOLD: 11/08/2019 [facility] 20 mg 11/03/2019 12:00:00 AM EDT capsule,delayed release (DR/EC) 60 TAKE ONE CAPSULE BY MOUTH TWICE A DAY TAKE ONE CAPSULE BY MOUTH TWICE A DAY SOLD: 12/02/2019 [facility] 20 mg 11/03/2019 12:00:00 AM EDT capsule,delayed release (DR/EC) 60 TAKE ONE CAPSULE BY MOUTH TWICE A DAY TAKE ONE CAPSULE BY MOUTH TWICE A DAY SOLD: 11/03/2019 [facility] duloxetine 20 MG Delayed Release Oral Capsule Duloxeti ne HCl 20 MG Duloxetine HCl 20 MG 10/31/2019 12:00:00 AM EDT 1.0 {capsule} s uspended Duloxetine HCl 20 MG eCW1 ([facility]) duloxetine 20 MG Delayed Release Oral Capsule Duloxeti ne HCl 20 MG Duloxetine HCl 20 MG 10/31/2019 12:00:00 AM EDT 1.0 {capsule} s uspended Duloxetine HCl 20 MG eCW1 ([facility]) duloxetine 20 MG Delayed Release Oral Capsule Duloxeti ne HCl 20 MG Duloxetine HCl 20 MG 10/31/2019 12:00:00 AM EDT 1.0 {capsule} s uspended Duloxetine HCl 20 MG eCW1 ([facility]) duloxetine 20 MG Delayed Release Oral Capsule Duloxeti ne HCl 20 MG Duloxetine HCl 20 MG 10/31/2019 12:00:00 AM EDT 1.0 {capsule} a ctive Duloxetine HCl 20 MG eCW1 ([facility]) duloxetine 20 MG Delayed Release Oral Capsule Duloxeti ne HCl 20 MG Duloxetine HCl 20 MG 10/31/2019 12:00:00 AM EDT 1.0 {capsule} a ctive Duloxetine HCl 20 MG eCW1 ([facility]) duloxetine 20 MG Delayed Release Oral Capsule Duloxeti ne HCl 20 MG Duloxetine HCl 20 MG 10/31/2019 12:00:00 AM EDT 1.0 {capsule} a ctive Duloxetine HCl 20 MG eCW1 ([facility]) duloxetine 20 MG Delayed Release Oral Capsule Duloxeti ne HCl 20 MG Duloxetine HCl 20 MG 10/31/2019 12:00:00 AM EDT 1.0 {capsule} a ctive Duloxetine HCl 20 MG eCW1 ([facility]) duloxetine 20 MG Delayed Release Oral Capsule Duloxeti ne HCl 20 MG Duloxetine HCl 20 MG 10/31/2019 12:00:00 AM EDT 1.0 {capsule} a ctive Duloxetine HCl 20 MG eCW1 ([facility]) duloxetine 20 MG Delayed Release Oral Capsule Duloxeti ne HCl 20 MG Duloxetine HCl 20 MG 10/31/2019 12:00:00 AM EDT 1.0 {capsule} a ctive Duloxetine HCl 20 MG eCW1 ([facility]) duloxetine 20 MG Delayed Release Oral Capsule Duloxeti ne HCl 20 MG Duloxetine HCl 20 MG 10/31/2019 12:00:00 AM EDT 1.0 {capsule} a ctive Duloxetine HCl 20 MG eCW1 ([facility]) 20 mg 10/31/2019 12:00:00 AM EDT capsule,delayed release (DR/EC) 7 TAKE ONE CAPSULE BY MOUTH EVERY DAY TAKE ONE CAPSULE BY MOUTH EVERY DAY SOLD: 11/03/2019 [facility] duloxetine 20 MG Delayed Release Oral Capsule Duloxeti ne HCl 20 MG Duloxetine HCl 20 MG 10/31/2019 12:00:00 AM EDT 1.0 {capsule} a ctive Duloxetine HCl 20 MG eCW1 ([facility]) duloxetine 20 MG Delayed Release Oral Capsule Duloxeti ne HCl 20 MG Duloxetine HCl 20 MG 10/31/2019 12:00:00 AM EDT 1.0 {capsule} s uspended Duloxetine HCl 20 MG eCW1 ([facility]) duloxetine 20 MG Delayed Release Oral Capsule Duloxeti ne HCl 20 MG Duloxetine HCl 20 MG 10/31/2019 12:00:00 AM EDT 1.0 {capsule} s uspended Duloxetine HCl 20 MG eCW1 ([facility]) duloxetine 20 MG Delayed Release Oral Capsule Duloxeti ne HCl 20 MG Duloxetine HCl 20 MG 10/31/2019 12:00:00 AM EDT 1.0 {capsule} a ctive Duloxetine HCl 20 MG eCW1 ([facility]) duloxetine 20 MG Delayed Release Oral Capsule Duloxeti ne HCl 20 MG Duloxetine HCl 20 MG 10/31/2019 12:00:00 AM EDT 1.0 {capsule} a ctive Duloxetine HCl 20 MG eCW1 ([facility]) duloxetine 20 MG Delayed Release Oral Capsule Duloxeti ne HCl 20 MG Duloxetine HCl 20 MG 10/31/2019 12:00:00 AM EDT 1.0 {capsule} s uspended Duloxetine HCl 20 MG eCW1 ([facility]) duloxetine 20 MG Delayed Release Oral Capsule Duloxeti ne HCl 20 MG Duloxetine HCl 20 MG 10/31/2019 12:00:00 AM EDT 1.0 {capsule} a ctive Duloxetine HCl 20 MG eCW1 ([facility]) duloxetine 20 MG Delayed Release Oral Capsule Duloxeti ne HCl 20 MG Duloxetine HCl 20 MG 10/31/2019 12:00:00 AM EDT 1.0 {capsule} s uspended Duloxetine HCl 20 MG eCW1 ([facility]) duloxetine 20 MG Delayed Release Oral Capsule Duloxeti ne HCl 20 MG Duloxetine HCl 20 MG 10/31/2019 12:00:00 AM EDT 1.0 {capsule} s uspended Duloxetine HCl 20 MG eCW1 ([facility]) duloxetine 20 MG Delayed Release Oral Capsule Duloxeti ne HCl 20 MG Duloxetine HCl 20 MG 10/31/2019 12:00:00 AM EDT active 1 capsule eCW1 ([facility]) duloxetine 20 MG Delayed Release Oral Capsule Duloxeti ne HCl 20 MG Duloxetine HCl 20 MG 10/31/2019 12:00:00 AM EDT 1.0 {capsule} s uspended Duloxetine HCl 20 MG eCW1 ([facility]) duloxetine 20 MG Delayed Release Oral Capsule Duloxeti ne HCl 20 MG Duloxetine HCl 20 MG 10/31/2019 12:00:00 AM EDT 1.0 {capsule} s uspended Duloxetine HCl 20 MG eCW1 ([facility]) duloxetine 20 MG Delayed Release Oral Capsule Duloxeti ne HCl 20 MG Duloxetine HCl 20 MG 10/31/2019 12:00:00 AM EDT active 1 capsule eCW1 ([facility]) duloxetine 20 MG Delayed Release Oral Capsule Duloxeti ne HCl 20 MG Duloxetine HCl 20 MG 10/31/2019 12:00:00 AM EDT 1.0 {capsule} s uspended Duloxetine HCl 20 MG eCW1 ([facility]) duloxetine 20 MG Delayed Release Oral Capsule Duloxeti ne HCl 20 MG Duloxetine HCl 20 MG 10/30/2019 12:00:00 AM EDT active 1 capsule eCW1 ([facility]) 100 unit/mL (3 mL) 10/28/2019 12:00:00 AM EDT insulin pen 15 USE 70 UNITS UNDER THE SKIN IN THE MORNING AND 90 UNITS IN THE EVENING USE 70 UNITS UNDER THE SKIN IN THE MORNING AND 90 UNITS IN THE EVENING SOLD: 12/07/2019 [facility] 100 unit/mL (3 mL) 10/28/2019 12:00:00 AM EDT insulin pen 15 USE 70 UNITS UNDER THE SKIN IN THE MORNING AND 90 UNITS IN THE EVENING USE 70 UNITS UNDER THE SKIN IN THE MORNING AND 90 UNITS IN THE EVENING SOLD: 11/20/2019 [facility] 100 unit/mL (3 mL) 10/28/2019 12:00:00 AM EDT insulin pen 15 USE 70 UNITS UNDER THE SKIN IN THE MORNING AND 90 UNITS IN THE EVENING USE 70 UNITS UNDER THE SKIN IN THE MORNING AND 90 UNITS IN THE EVENING SOLD: 11/03/2019 [facility] 100 unit/mL (3 mL) 10/28/2019 12:00:00 AM EDT insulin pen 15 USE 70 UNITS UNDER THE SKIN IN THE MORNING AND 90 UNITS IN THE EVENING USE 70 UNITS UNDER THE SKIN IN THE MORNING AND 90 UNITS IN THE EVENING SOLD: 01/10/2020 [facility] Basaglar KwikPen 100 UNIT/ML Basaglar KwikPen 100 UNIT/ML 12:00:00 AM EDT active Basaglar KwikPen 100 UNIT/ML eCW1 ([facility]) Basaglar KwikPen 100 UNIT/ML Basaglar KwikPen 100 UNIT/ML 12:00:00 AM EDT active Basaglar KwikPen 100 UNIT/ML eCW1 ([facility]) Basaglar KwikPen 100 UNIT/ML Basaglar KwikPen 100 UNIT/ML 12:00:00 AM EDT active Basaglar KwikPen 100 UNIT/ML eCW1 ([facility]) Basaglar KwikPen 100 UNIT/ML Basaglar KwikPen 100 UNIT/ML 12:00:00 AM EDT active Basaglar KwikPen 100 UNIT/ML eCW1 ([facility]) Basaglar KwikPen 100 UNIT/ML Basaglar KwikPen 100 UNIT/ML 12:00:00 AM EDT active as directed eCW1 ([facility]) Basaglar KwikPen 100 UNIT/ML Basaglar KwikPen 100 UNIT/ML 12:00:00 AM EDT active as directed eCW1 ([facility]) Basaglar KwikPen 100 UNIT/ML Basaglar KwikPen 100 UNIT/ML 12:00:00 AM EDT active Basaglar KwikPen 100 UNIT/ML eCW1 ([facility]) Basaglar KwikPen 100 UNIT/ML Basaglar KwikPen 100 UNIT/ML 12:00:00 AM EDT active as directed eCW1 ([facility]) Basaglar KwikPen 100 UNIT/ML Basaglar KwikPen 100 UNIT/ML 12:00:00 AM EDT active Basaglar KwikPen 100 UNIT/ML eCW1 ([facility]) 4 mg 10/17/2019 12:00:00 AM EDT tablet 30 TAKE ONE TABLET BY MOUTH AT BEDTIME NEEDED FOR SPASMS TAKE ONE TABLET BY MOUTH AT BEDTIME N EEDED FOR SPASMS SOLD: 10/18/2019 [facility] pioglitazone 30 MG Oral Tablet PIOGLITAZONE HCL 10/13/2019 12:00 :00 AM EDT tablet 30 TAKE ONE TABLET BY MOUTH EVERY D AY TAKE ONE TABLET BY MOUTH EVERY DAY SOLD: 11/18/2019 [facility] 30 mg 10/13/2019 12:00:00 AM EDT tablet 30 TAKE ONE TABLET BY MOUTH EVERY DAY TAKE ONE TABLET BY MOUTH EVERY DAY SOLD: 10/18/2019 [facility] 4 mg 09/24/2019 12:00:00 AM EDT tablet 30 TAKE ONE TABLET BY MOUTH AT BEDTIME NEEDED FOR SPASMS TAKE ONE TABLET BY MOUTH AT BEDTIME N EEDED FOR SPASMS SOLD: 09/25/2019 [facility] 5 mg 09/17/2019 12:00:00 AM EDT tablet 30 TAKE ONE TABLET BY MOUTH EVERY DAY TAKE ONE TABLET BY MOUTH EVERY DAY SOLD: 09/18/2019 [facility] 5 mg 09/17/2019 12:00:00 AM EDT tablet 30 TAKE ONE TABLET BY MOUTH EVERY DAY TAKE ONE TABLET BY MOUTH EVERY DAY SOLD: 10/18/2019 [facility] 5 mg 09/17/2019 12:00:00 AM EDT tablet 30 TAKE ONE TABLET BY MOUTH EVERY DAY TAKE ONE TABLET BY MOUTH EVERY DAY SOLD: 12/13/2019 [facility] 5 mg 09/17/2019 12:00:00 AM EDT tablet 30 TAKE ONE TABLET BY MOUTH EVERY DAY TAKE ONE TABLET BY MOUTH EVERY DAY SOLD: 11/13/2019 [facility] Steglatro 5 MG Steglatro 5 MG 09/16/2019 12:00:00 AM EDT 1.0 {ta blet} active Steglatro 5 MG eCW1 ([facility]) Steglatro 5 MG Steglatro 5 MG 09/16/2019 12:00:00 AM EDT 1.0 {ta blet} active Steglatro 5 MG eCW1 ([facility]) Steglatro 5 MG Steglatro 5 MG 09/16/2019 12:00:00 AM EDT active 1 tablet eCW1 ([facility]) empagliflozin 10 MG Oral Tablet [Jardiance] Jardiance 10 MG Jardiance 10 MG 09/13/2019 12:00:00 AM EDT active 1 tablet eCW1 ([facility]) 20 mg 09/12/2019 12:00:00 AM EDT capsule,delayed release (DR/EC) 30 TAKE ONE CAPSULE BY MOUTH EVERY DAY 30 MINUTES BEFORE MORNING TAKE ONE CAPSULE BY MOUTH EVERY DAY 30 MINUTES BEFORE MORNING SOLD: 09/15/2019 [facility] 4 mg 08/29/2019 12:00:00 AM EST tablet 30 TAKE ONE TABLET BY MOUTH AT BEDTIME NEEDED FOR SPASMS TAKE ONE TABLET BY MOUTH AT BEDTIME N EEDED FOR SPASMS SOLD: 08/30/2019 [facility] 325 mg (65 mg iron) 08/16/2019 12:00:00 AM EST tablet 30 TAKE ONE TABLET BY MOUTH EVERY DAY TAKE ONE TABLET BY MOUTH EVERY DAY SOLD: 08/17/2019 [facility] 30 mg 08/13/2019 12:00:00 AM EST tablet 30 TAKE ONE TABLET BY MOUTH EVERY DAY TAKE ONE TABLET BY MOUTH EVERY DAY SOLD: 08/17/2019 [facility] 30 mg 08/13/2019 12:00:00 AM EST tablet 30 TAKE ONE TABLET BY MOUTH EVERY DAY TAKE ONE TABLET BY MOUTH EVERY DAY SOLD: 09/15/2019 [facility] 100 mg 08/13/2019 12:00:00 AM EST capsule 30 TAKE ONE CAPSULE BY MOUTH EVERY DAY NEEDED TAKE ONE CAPSULE BY MOUTH EVERY DAY NEEDED SOLD: 08/17/2019 [facility] 100 mg 08/13/2019 12:00:00 AM EST capsule 30 TAKE ONE CAPSULE BY MOUTH EVERY DAY NEEDED TAKE ONE CAPSULE BY MOUTH EVERY DAY NEEDED SOLD: 09/15/2019 [facility] 100 mg 08/13/2019 12:00:00 AM EST capsule 30 TAKE ONE CAPSULE BY MOUTH EVERY DAY NEEDED TAKE ONE CAPSULE BY MOUTH EVERY DAY NEEDED SOLD: 11/08/2019 [facility] 100 mg 08/13/2019 12:00:00 AM EST capsule 30 TAKE ONE CAPSULE BY MOUTH EVERY DAY NEEDED TAKE ONE CAPSULE BY MOUTH EVERY DAY NEEDED SOLD: 10/13/2019 [facility] 80 mg 08/05/2019 12:00:00 AM EST tablet 30 TAKE ONE TABLET BY MOUTH EVERY DAY TAKE ONE TABLET BY MOUTH EVERY DAY SOLD: 01/05/2020 [facility] 80 mg 08/05/2019 12:00:00 AM EST tablet 30 TAKE ONE TABLET BY MOUTH EVERY DAY TAKE ONE TABLET BY MOUTH EVERY DAY SOLD: 11/08/2019 [facility] 10 mg 08/05/2019 12:00:00 AM EST tablet 30 TAKE ONE TABLET BY MOUTH EVERY DAY TAKE ONE TABLET BY MOUTH EVERY DAY SOLD: 10/10/2019 [facility] 80 mg 08/05/2019 12:00:00 AM EST tablet 30 TAKE ONE TABLET BY MOUTH EVERY DAY TAKE ONE TABLET BY MOUTH EVERY DAY SOLD: 10/10/2019 [facility] 80 mg 08/05/2019 12:00:00 AM EST tablet 30 TAKE ONE TABLET BY MOUTH EVERY DAY TAKE ONE TABLET BY MOUTH EVERY DAY SOLD: 08/07/2019 [facility] 80 mg 08/05/2019 12:00:00 AM EST tablet 30 TAKE ONE TABLET BY MOUTH EVERY DAY TAKE ONE TABLET BY MOUTH EVERY DAY SOLD: 12/07/2019 [facility] 80 mg 08/05/2019 12:00:00 AM EST tablet 30 TAKE ONE TABLET BY MOUTH EVERY DAY TAKE ONE TABLET BY MOUTH EVERY DAY SOLD: 09/09/2019 [facility] 10 mg 08/05/2019 12:00:00 AM EST tablet 30 TAKE ONE TABLET BY MOUTH EVERY DAY TAKE ONE TABLET BY MOUTH EVERY DAY SOLD: 08/07/2019 [facility] 10 mg 08/05/2019 12:00:00 AM EST tablet 30 TAKE ONE TABLET BY MOUTH EVERY DAY TAKE ONE TABLET BY MOUTH EVERY DAY SOLD: 01/05/2020 [facility] 10 mg 08/05/2019 12:00:00 AM EST tablet 30 TAKE ONE TABLET BY MOUTH EVERY DAY TAKE ONE TABLET BY MOUTH EVERY DAY SOLD: 11/08/2019 [facility] 10 mg 08/05/2019 12:00:00 AM EST tablet 30 TAKE ONE TABLET BY MOUTH EVERY DAY TAKE ONE TABLET BY MOUTH EVERY DAY SOLD: 09/09/2019 [facility] 10 mg 08/05/2019 12:00:00 AM EST tablet 30 TAKE ONE TABLET BY MOUTH EVERY DAY TAKE ONE TABLET BY MOUTH EVERY DAY SOLD: 12/07/2019 [facility] 4 mg 07/25/2019 12:00:00 AM EST tablet 30 TAKE ONE TABLET BY MOUTH AT BEDTIME NEEDED FOR SPASMS TAKE ONE TABLET BY MOUTH AT BEDTIME N EEDED FOR SPASMS SOLD: 07/28/2019 [facility] 10 mg 07/19/2019 12:00:00 AM EST capsule 30 TAKE ONE CAPSULE BY MOUTH AT BEDTIME TAKE ONE CAPSULE BY MOUTH AT BEDTIME SOLD: 09/15/2019 [facility] 10 mg 07/19/2019 12:00:00 AM EST capsule 30 TAKE ONE CAPSULE BY MOUTH AT BEDTIME TAKE ONE CAPSULE BY MOUTH AT BEDTIME SOLD: 10/13/2019 [facility] 10 mg 07/19/2019 12:00:00 AM EST capsule 30 TAKE ONE CAPSULE BY MOUTH AT BEDTIME TAKE ONE CAPSULE BY MOUTH AT BEDTIME SOLD: 08/17/2019 [facility] 10 mg 07/19/2019 12:00:00 AM EST capsule 30 TAKE ONE CAPSULE BY MOUTH AT BEDTIME TAKE ONE CAPSULE BY MOUTH AT BEDTIME SOLD: 07/20/2019 [facility] 10 mg 07/19/2019 12:00:00 AM EST capsule 30 TAKE ONE CAPSULE BY MOUTH AT BEDTIME TAKE ONE CAPSULE BY MOUTH AT BEDTIME SOLD: 11/13/2019 [facility] 10 mg 07/19/2019 12:00:00 AM EST capsule 30 TAKE ONE CAPSULE BY MOUTH AT BEDTIME TAKE ONE CAPSULE BY MOUTH AT BEDTIME SOLD: 12/13/2019 [facility] Naproxen 500 MG Oral Tablet Naproxen 500 MG 07/18/2019 12:00:00 AM EST suspended Naproxen 500 MG eC1 ([facility]) Naproxen 500 MG Oral Tablet Naproxen 500 MG 07/18/2019 12:00:00 AM EST suspended Naproxen 500 MG eC ([facility]) Omeprazole 20 MG Delayed Release Oral Capsule Omeprazole 20 MG 07/18/2019 12:00:00 AM EST active 1 capsul e 30 minutes before morning meal eCW1 ([facility]) Naproxen 500 MG Oral Tablet Naproxen 500 MG 07/18/2019 12:00:00 AM EST active 1 tablet with food or milk a s needed eC1 ([facility]) Naproxen 500 MG Oral Tablet Naproxen 500 MG 07/18/2019 12:00:00 AM EST suspended Naproxen 500 MG eCW1 ([facility]) Omeprazole 20 MG Delayed Release Oral Capsule Omeprazole 20 MG 07/18/2019 12:00:00 AM EST active 1 capsul e 30 minutes before morning meal eCW1 ([facility]) Naproxen 500 MG Oral Tablet Naproxen 500 MG 07/18/2019 12:00:00 AM EST suspended Naproxen 500 MG eCW1 ([facility]) 500 mg 07/18/2019 12:00:00 AM EST tablet 20 TAKE ONE TABLET BY MOUTH EVERY 12 HOURS WITH FOOD OR MILK FOR 10 DAYS TAKE ONE TABLET BY MOUTH EVERY 12 HOURS WITH FOOD OR MILK FOR 10 DAYS SOLD: 07/20/2019 [facility] Naproxen 500 MG Oral Tablet Naproxen 500 MG 07/18/2019 12:00:00 AM EST suspended Naproxen 500 MG eCW1 ([facility]) Naproxen 500 MG Oral Tablet Naproxen 500 MG 07/18/2019 12:00:00 AM EST suspended Naproxen 500 MG eCW1 ([facility]) Naproxen 500 MG Oral Tablet Naproxen 500 MG 07/18/2019 12:00:00 AM EST active 1 tablet with food or milk a s needed eCW1 ([facility]) Naproxen 500 MG Oral Tablet Naproxen 500 MG 07/18/2019 12:00:00 AM EST suspended Naproxen 500 MG eCW1 ([facility]) Naproxen 500 MG Oral Tablet Naproxen 500 MG 07/18/2019 12:00:00 AM EST suspended Naproxen 500 MG eCW1 ([facility]) Naproxen 500 MG Oral Tablet Naproxen 500 MG 07/18/2019 12:00:00 AM EST suspended 1 tablet with food or milk a s needed eCW1 ([facility]) Naproxen 500 MG Oral Tablet Naproxen 500 MG 07/18/2019 12:00:00 AM EST suspended Naproxen 500 MG eCW1 ([facility]) Naproxen 500 MG Oral Tablet Naproxen 500 MG 07/18/2019 12:00:00 AM EST suspended Naproxen 500 MG eCW1 ([facility]) Naproxen 500 MG Oral Tablet Naproxen 500 MG 07/18/2019 12:00:00 AM EST suspended Naproxen 500 MG eCW1 ([facility]) Naproxen 500 MG Oral Tablet Naproxen 500 MG 07/18/2019 12:00:00 AM EST suspended Naproxen 500 MG eCW1 ([facility]) Naproxen 500 MG Oral Tablet Naproxen 500 MG 07/18/2019 12:00:00 AM EST suspended Naproxen 500 MG eCW1 ([facility]) 30 mg 06/11/2019 12:00:00 AM EST tablet 30 TAKE ONE TABLET BY MOUTH EVERY DAY TAKE ONE TABLET BY MOUTH EVERY DAY SOLD: 06/16/2019 [facility] 30 mg 06/11/2019 12:00:00 AM EST tablet 30 TAKE ONE TABLET BY MOUTH EVERY DAY TAKE ONE TABLET BY MOUTH EVERY DAY SOLD: 07/18/2019 [facility] 40 mg 06/07/2019 12:00:00 AM EST capsule,delayed release (DR/EC) 60 TAKE ONE CAPSULE BY MOUTH TWICE A DAY 30 MINUTES BEFORE MEAL TAKE ONE CAPSULE BY MOUTH TWICE A DAY 30 MINUTES BEFORE MEAL SOLD: 07/18/2019 [facility] 40 mg 06/07/2019 12:00:00 AM EST capsule,delayed release (DR/EC) 60 TAKE ONE CAPSULE BY MOUTH TWICE A DAY 30 MINUTES BEFORE MEAL TAKE ONE CAPSULE BY MOUTH TWICE A DAY 30 MINUTES BEFORE MEAL SOLD: 06/09/2019 [facility] 325 mg (65 mg iron) 04/14/2019 12:00:00 AM EDT tablet 30 TAKE ONE TABLET BY MOUTH EVERY DAY TAKE ONE TABLET BY MOUTH EVERY DAY SOLD: 06/12/2019 [facility] 81 mg 04/14/2019 12:00:00 AM EDT tablet,chewable 30 CHEW ONE TABLET BY MOUTH EVERY DAY CHEW ONE TABLET BY MOUTH EVERY DAY SOLD: 06/12/2019 [facility] 81 mg 04/14/2019 12:00:00 AM EDT tablet,chewable 30 CHEW ONE TABLET BY MOUTH EVERY DAY CHEW ONE TABLET BY MOUTH EVERY DAY SOLD: 08/17/2019 [facility] 81 mg 04/14/2019 12:00:00 AM EDT tablet,chewable 30 CHEW ONE TABLET BY MOUTH EVERY DAY CHEW ONE TABLET BY MOUTH EVERY DAY SOLD: 07/18/2019 [facility] 100 mg 04/14/2019 12:00:00 AM EDT capsule 30 TAKE ONE CAPSULE BY MOUTH EVERY DAY NEEDED TAKE ONE CAPSULE BY MOUTH EVERY DAY NEEDED SOLD: 07/18/2019 [facility] 325 mg (65 mg iron) 04/14/2019 12:00:00 AM EDT tablet 30 TAKE ONE TABLET BY MOUTH EVERY DAY TAKE ONE TABLET BY MOUTH EVERY DAY SOLD: 07/18/2019 [facility] 100 mg 04/14/2019 12:00:00 AM EDT capsule 30 TAKE ONE CAPSULE BY MOUTH EVERY DAY NEEDED TAKE ONE CAPSULE BY MOUTH EVERY DAY NEEDED SOLD: 06/12/2019 [facility] 80 mg 01/07/2019 12:00:00 AM EDT tablet 30 TAKE ONE TABLET BY MOUTH ONCE DAILY TAKE ONE TABLET BY MOUTH ONCE DAILY SOLD: 06/12/2019 [facility] 25 mg 01/07/2019 12:00:00 AM EDT tablet 60 TAKE TWO TABLETS BY MOUTH ONCE DAILY TAKE TWO TABLETS BY MOUTH ONCE DAILY SOLD: 06/12/2019 [facility] 10 mg 01/07/2019 12:00:00 AM EDT tablet 30 TAKE ONE TABLET BY MOUTH ONCE DAILY TAKE ONE TABLET BY MOUTH ONCE DAILY SOLD: 07/01/2019 [facility] 31 gauge x 5/16" 01/06/2019 12:00:00 AM EDT needle 100 USE DIRECTED TWO TIMES A DAY SUBCUTANEOUSLY USE DIRECTED TWO TIMES A DAY SUBCUTANEOUSLY SOLD: 08/07/2019 [facility] 31 gauge x 5/16" 01/06/2019 12:00:00 AM EDT needle 100 USE DIRECTED TWO TIMES A DAY SUBCUTANEOUSLY USE DIRECTED TWO TIMES A DAY SUBCUTANEOUSLY SOLD: 06/16/2019 [facility] 31 gauge x 5/16" 01/06/2019 12:00:00 AM EDT needle 100 USE DIRECTED TWO TIMES A DAY SUBCUTANEOUSLY USE DIRECTED TWO TIMES A DAY SUBCUTANEOUSLY SOLD: 09/25/2019 [facility] 150 mg 01/06/2019 12:00:00 AM EDT tablet 60 TAKE ONE TABLET BY MOUTH TWICE A DAY TAKE ONE TABLET BY MOUTH TWICE A DAY SOLD: 06/12/2019 [facility] Insurance Providers Payer name Policy type / Coverage type Policy ID Covered republican ID Covered republican's relationship to azul Policy Azul Plan Information [facility] [id number] UNHC COMMUNITY PLAN MCDO [id number] SP [id number] EMEDNY [id number] SP [id number] UNHC COMMUNITY PLAN MCDHMO [id number] SP [id number] [facility] O [id number] S [id number] UNHC COMMUNITY PLAN MCDHMO [id number] SP [id number] UNHC COMMUNITY PLAN MCDHMO [id number] SP [id number] [facility] I [id number] Self [id number] ANSI-Medicaid [id number] ANSI-Medicaid [id number] ANSI-Medicaid [id number] ANSI-Medicaid [id number] ANSI-Medicaid [id number] ANSI-Medicaid [id number] ANSI-Medicaid [id number] ANSI-Medicaid [id number] ANSI-Medicaid [id number] ANSI-Medicaid [id number] ANSI-Medicaid [id number] ANSI-Medicaid [id number] ANSI-Medicaid [id number] ANSI-Medicaid [id number] ANSI-Medicaid [id number] ANSI-Medicaid [id number] ANSI-Medicaid [id number] ANSI-Medicaid [id number] ANSI-Medicaid [id number] ANSI-Medicaid [id number] [facility] [id number] SP [id number] [facility] [id number] SP [id number] [facility] [id number] SP [id number] ANSI-Medicaid [id number] ANSI-Medicaid [id number] ANSI-Medicaid [id number] ANSI-Medicaid [id number] [facility] Maintenance Organization (O) [id number] Self [id number] ANSI-Medicaid [id number] ANSI-Medicaid [id number] ANSI-Medicaid [id number] ANSI-Medicaid [id number] ANSI-Medicaid [id number] ANSI-Medicaid [id number] ANSI-Medicaid [id number] [facility] Maintenance [facility] ([facility]) [id number] Self [id number] ANSI-Medicaid [id number] ANSI-Medicaid [id number] [facility] [id number] MEDICAID [id number] SP [id number] [facility] Maintenance [facility] ([facility]) [id number] Self [id number] [facility] [id number] [facility] ([facility]) [id number] Self [id number] ANSI-Medicaid [id number] ANSI-Medicaid [id number] ANSI-Medicaid [id number] ANSI-Medicaid [id number] ANSI-Medicaid [id number] ANSI-Medicaid [id number] [facility] Maintenance Organization (O) [id number] Self [id number] ANSI-Medicaid [id number] ANSI-Medicaid [id number] ANSI-Medicaid [id number] ANSI-Medicaid [id number] ANSI-Medicaid [id number] ANSI-Medicaid [id number] ANSI-Medicaid [id number] ANSI-Medicaid [id number] ANSI-Medicaid [id number] ANSI-Medicaid [id number] ANSI-Medicaid [id number] [facility] Health Maintenance Organization (HMO) [id number] Self [id number] ANSI-Medicaid [id number] [facility] Community Plan Medigap Part B [id number] Self [id number] [place] Med[place] Part B [id number] Self [id number] [facility] Community Plan Commercial [id number] Self [id number] UNHC COMMUNITY PLAN MCDHMO [id number] SP [id number] [facility] Community Plan Medigap Part B [id number] Self [id number] UNHC COMMUNITY PLAN MCDHMO [id number] SP [id number] [facility] Health Maintenance Organization (HMO) [id number] Self [id number] [facility] Community Plan Medigap Part B [id number] Self [id number] [facility] Health Maintenance Organization (HMO) [id number] Self [id number] UN COMMUNITY PLAN MCDHMO [id number] SP [id number] [facility] O [id number] O [id number] OTHER NO FAULT [id number] SP [id number] UNHC COMMUNITY PLAN MCDHMO [id number] SP [id number] UNHC COMMUNITY PLAN MCDHMO [id number] SP [id number] UNHC COMMUNITY PLAN MCDHMO [id number] SP [id number] [employer] PL[employer] [id number] SP [id number] BL[employer] PLAN [id number] SP [id number] HMO BLUE [id number] SP [id number] HMO BLUE [id number] SP [id number] UNHC COMMUNITY PLAN MCDHMO [id number] SP [id number] MEDICAID [id number] SP [id number] MEDICAID [id number] SP [id number] [facility] Health Maintenance Organization (HMO) Self UNHC COMMUNITY PLAN MCDHMO [id number] SP [id number] [facility](MCAID) O [id number] S [id number] [facility] Community Plan Medigap Part B Self BS [place] Hmo Blue Option Commercial Self [employer](MCAID) S [id number] S [id number] Problems, Conditions, and Diagnoses Code Display Name Description Problem Type Effective Dates Data Source(s) K31.84 807987714 Gastroparesis Problem 07/15/2020 12:00:00 AM EST eCW1 ([facility]) E11.42 901248184 Diabetic polyneuropa thy associated with type 2 diabetes mellitus Problem 05/06/2020 12:00:00 AM EST eCW1 ([facility]) E11.65 251507597 Uncontrolled type 2 diabetes douglas litus with hyperglycemia Problem 05/06/2020 12:00:00 AM EST eCW1 ([facility]) E11.65 Hyperglycemia due to type 2 diabetes douglas litus Type 2 diabetes mellitus with hyperglycemia Problem 04/01/2020 12:00:00 AM EDT eCW1 ([facility]) E11.42 [id number] Diabetic peripheral neuropathy associated with type 2 diabetes mellitus Problem 10/29/2019 12:00:00 AM EDT eCW1 ([facility]) R20.8 44072689 Burning sensation of feet Problem 10/29/2019 12:00:00 AM EDT eCW1 ([facility]) R20.8 15864885 Burning sensation of feet Problem 10/29/2019 12:00:00 AM EDT eCW1 ([facility]) E11.42 [id number] Diabetic peripheral neuropathy associated with type 2 diabetes mellitus Problem 10/29/2019 12:00:00 AM EDT eCW1 ([facility]) Z79.4 912690685 longterm (current) use of insulin Proble m 09/13/2019 12:00:00 AM EDT eCW1 ([facility]) E11.29 11026990 Type 2 diabetes miley itus with other diabetic kidney complication Problem 09/13/2019 12:00:00 AM EDT eCW1 ([facility]) E11.29 38117147 Type 2 diabetes miley itus with other diabetic kidney complication Problem 09/13/2019 12:00:00 AM EDT eCW1 ([facility]) K74.60 76132771 Unspecified cirrhosis of liver Problem 07/25/2019 12:00:00 AM EST eCW1 ([facility]) K75.81 972318312 SÁNCHEZ (nonalcoholic steatohepatitis) Probl em 07/25/2019 12:00:00 AM EST eCW1 ([facility]) K75.81 838486821 SÁNCHEZ (nonalcoholic steatohepatitis) Probl em 07/25/2019 12:00:00 AM EST eCW1 ([facility]) G89.21 902371566 Chronic pain due to trauma Problem 0 12:00:00 AM EST eCW1 ([facility]) G47.33 76977257 Obstructive sleep apnea Problem 07/18/2019 1 2:00:00 AM EST eCW1 ([facility]) G89.21 503412523 Chronic pain due to trauma Problem 0 12:00:00 AM EST eCW1 ([facility]) G47.33 53939627 Obstructive sleep apnea Problem 07/18/2019 1 2:00:00 AM EST eCW1 ([facility]) Surgeries/Procedures Procedure Description Date Indications Data Source(s) ECG ROUTINE ECG W/LEAST 12 LDS W/I&R 05/06/2020 12:00: 00 AM EST eCW1 ([facility]) Immunization: Flublok Quadrivalent (18 years & older) 0.5mL IM (Influenza) 05/06/2020 12:00:00 AM EST eCW1 ([facility]) REAGENT STRIP/BLOOD GLUCOSE 10/30/2019 12:00:00 AM EDT eCW1 ([facility]) PHYSICIAN TELEPHONE EVALUATION 21-30 MIN 09/12/2019 12 :00:00 AM EDT eCW1 ([facility]) Results ID Date Data Source [id number] 08/01/2020 08:30:00 AM EST [facility] Name Value Range Interpretation Code Description Data Kecia rce(s) Supporting Document(s) SARS coronavirus 2 RNA Not Detected [facility] [place] This lab was ordered by [facility] and reported by [facility]. ID Date Data Source [id number] 06/06/2020 10:00:00 AM EST [facility] Name Value Range Interpretation Code Description Data Kecia rce(s) Supporting Document(s) SARS coronavirus 2 RNA [facility] This lab was ordered by [facility] and reported by [facility]. ID Date Data Source [id number] 10/30/2019 12:00:00 AM EDT eCW1 ([facility]) Name Value Range Interpretation Code Description Data Kecia rce(s) Supporting Document(s) Microalbumin/Creatinine [Ratio] in Urine 583.6 0.0-30.0 ANDRES/CREAT RATIO eCW1 ([facility]) Albumin/Creatinine [Mass Ratio] in Urine 157.0 MALB URINE SIEMENS eCW1 ([facility]) Microalbumin/Creatinine [Mass Ratio] in Urine 26.9 CREATININE, URINE eCW1 ([facility]) ID Date Data Source ACETONE/KETONE 10/30/2019 12:00:00 AM EDT eCW1 ([facility]) Name Value Range Interpretation Code Description Data Kecia rce(s) Supporting Document(s) 0.64 <2.81 ACETONE/KETONE eCW1 ([facility]) ID Date Data Source OSMOLALITY SERUM 10/30/2019 12:00:00 AM EDT eCW1 ([facility]) Name Value Range Interpretation Code Description Data Kecia rce(s) Supporting Document(s) 314 275-295 OSMOLALITY SERUM eCW1 ([facility]) ID Date Data Source [id number] 10/30/2019 12:00:00 AM EDT eCW1 ([facility]) Name Value Range Interpretation Code Description Data Kecia rce(s) Supporting Document(s) Hemoglobin A1c/Hemoglobin.total in Blood 10.0 HEMOGLOBIN A1c eCW1 ([facility]) ID Date Data Source Comprehensive Metabolic Profile (CMP) 10/30/2019 12:00:00 AM EDT eCW1 ([facility]) Name Value Range Interpretation Code Description Data Kecia rce(s) Supporting Document(s) 583 70-100 GLUCOSE, FASTING eCW1 ([facility]) 19 7-18 BLOOD UREA NITROGEN eCW1 ([facility]) > 60.0 >51 GLOMERULAR FILTRATION RATE eCW 1 ([facility]) 133 136-145 SODIUM LEVEL eCW1 ([facility]) 0.94 0.55-1.30 CREATININE FOR GFR eCW1 ([facility]) 4.3 3.5-5.1 POTASSIUM SERUM eCW1 ([facility]) 9.3 8.5-10.1 CALCIUM LEVEL eCW1 ([facility]) 23 21-32 CARBON DIOXIDE LEVEL eCW1 ([facility]) 101 98-107 CHLORIDE LEVEL eCW1 ([facility]) 28 7-37 AST/SGOT eCW1 ([facility]) 33 12-78 ALT/SGPT eCW1 ([facility]) 209 45-117 ALKALINE PHOSPHATASE eCW1 ([facility]) 7.5 6.4-8.2 TOTAL PROTEIN eCW1 ([facility]) 0.8 0.2-1.0 BILIRUBIN,TOTAL eCW1 ([facility]) 0.56 1.00-1.93 ALBUMIN/GLOBULIN RATIO eCW1 ([facility]) 2.7 3.2-5.2 ALBUMIN eCW1 ([facility]) Procedure Social History Code Duration Value Status Description Data Source(s ) Smoking 07/15/2020 12:00:00 AM EST Never Smoker completed Never S moker eCW1 ([facility]) Smoking 07/15/2020 12:00:00 AM EST Never Smoker completed Never S moker eCW1 ([facility]) Smoking 05/06/2020 12:00:00 AM EST Never Smoker completed Never S moker eCW1 ([facility]) Smoking 05/06/2020 12:00:00 AM EST Never Smoker completed Never S moker eCW1 ([facility]) Smoking 04/23/2020 12:00:00 AM EDT Never Smoker completed Never S moker eCW1 ([facility]) Smoking 04/23/2020 12:00:00 AM EDT Never Smoker completed Never S moker eCW1 ([facility]) Smoking 04/01/2020 12:00:00 AM EDT Never Smoker completed Never S moker eCW1 ([facility]) Smoking 04/01/2020 12:00:00 AM EDT Never Smoker completed Never S moker eCW1 ([facility]) Smoking 10/30/2019 12:00:00 AM EDT Never Smoker completed Never S moker eCW1 ([facility]) Smoking 10/30/2019 12:00:00 AM EDT Never Smoker completed Never S moker eCW1 ([facility]) Smoking 10/30/2019 12:00:00 AM EDT Never Smoker completed Never S moker eCW1 ([facility]) Smoking 10/30/2019 12:00:00 AM EDT Never Smoker completed Never S moker eCW1 ([facility]) Smoking 10/30/2019 12:00:00 AM EDT Never Smoker completed Never S moker eCW1 ([facility]) Vital Signs ID Date Data Source UNK Name Value Range Interpretation Code Description Data Source(s) Diastolic blood pressure 82 mm[Hg] 82 mm[Hg] eCW1 ([facility]) Systolic blood pressure 126 mm[Hg] 126 mm[Hg] e CW1 ([facility]) Body temperature 97.3 [degF] 97.3 [degF] eCW1 ( [facility]) Respiratory rate 18 /min 18 /min eCW1 ([facility] Heart rate 107 /min 107 /min eCW1 ([facility]) Body mass index (BMI) [Ratio] 34.36 kg/m2 34.36 kg/m2 eCW1 ([facility]) Body height 68 [in_i] 68 [in_i] eCW1 ([facility]) Body weight 226 [lb_av] 226 [lb_av] eCW1 ([facility]) Systolic blood pressure 154 mm[Hg] 154 mm[Hg] e CW1 ([facility]) Body temperature 97.5 [degF] 97.5 [degF] eCW1 ( [facility]) Respiratory rate 18 /min 18 /min eCW1 ([facility]) Heart rate 89 /min 89 /min eCW1 ([facility]) Body mass index (BMI) [Ratio] 34.06 kg/m2 34.06 kg/m2 eCW1 ([facility]) Body height 68 [in_i] 68 [in_i] eCW1 ([facility]) Body weight 224.0 [lb_av] 224.0 [lb_av] eCW1 ([facility]) Diastolic blood pressure 82 mm[Hg] 82 mm[Hg] eCW1 ([facility]) Diastolic blood pressure 86 mm[Hg] 86 mm[Hg] eCW1 ([facility]) Systolic blood pressure 140 mm[Hg] 140 mm[Hg] e CW1 ([facility]) Body temperature 98.0 [degF] 98.0 [degF] eCW1 ( [facility]) Respiratory rate 19 /min 19 /min eCW1 ([facility]) Heart rate 118 /min 118 /min eCW1 ([facility]) Body mass index (BMI) [Ratio] 34.21 kg/m2 34.21 kg/m2 eCW1 ([facility]) Body height 68 [in_i] 68 [in_i] eCW1 ([facility]) Body weight 225 [lb_av] 225 [lb_av] eCW1 ([facility]) Diastolic blood pressure 74 mm[Hg] 74 mm[Hg] eCW1 ([facility]) Systolic blood pressure 120 mm[Hg] 120 mm[Hg] e CW1 ([facility]) Body temperature 98.6 [degF] 98.6 [degF] eCW1 ( [facility]) Respiratory rate 20 /min 20 /min eCW1 ([facility]) Heart rate 88 /min 88 /min eCW1 ([facility]) Body mass index (BMI) [Ratio] 35.24 kg/m2 35.24 kg/m2 eCW1 ([facility]) Body height 68 [in_us] 68 [in_us] eCW1 ([facility]) Body weight Measured 231.8 [lb_av] 231.8 [lb_av ] eCW1 ([facility]) Body weight 105.689 kg 105.689 kg [facility] ([facility], ) Body mass index (BMI) [Ratio] 37.6 kg/m2 37.6 k g/m2 [facility] ([facility], ) Body weight 233.00 [lb_av] 233.00 [lb_av] MEDEN T ([facility], ) Body height 66 [in_i] 66 [in_i] [facility]ENT ([facility], ) 5'6" Systolic blood pressure 110 mm[Hg] 110 mm[Hg] e CW1 ([facility]) Body temperature 98.3 [degF] 98.3 [degF] eCW1 ( [facility]) Respiratory rate 20 /min 20 /min eCW1 ([facility] Heart rate 100 /min 100 /min eCW1 ([facility]) Body mass index (BMI) [Ratio] 34.60 kg/m2 34.60 kg/m2 eCW1 ([facility]) Body height 68 [in_us] 68 [in_us] eCW1 ([facility]) Body weight Measured 227.6 [lb_av] 227.6 [lb_av ] eCW1 ([facility]) Diastolic blood pressure 72 mm[Hg] 72 mm[Hg] eCW1 ([facility]) Patient Treatment Plan of Care Planned Activity Planned Date Details Description Data Source (s) Nortriptyline 25 MG Oral Capsule 07/15/2020 12:00:00 AM EST eCW1 ([facility]) Metoclopramide 10 MG Oral Tablet 07/15/2020 12:00:00 AM EST eCW1 ([facility]) Nortriptyline 25 MG Oral Capsule 07/15/2020 12:00:00 AM EST eCW1 ([facility]) Metoclopramide 10 MG Oral Tablet 07/15/2020 12:00:00 AM EST eCW1 ([facility]) duloxetine 60 MG Delayed Release Oral Capsule 05/06/2020 12:00:00 A M EST eCW1 ([facility]) duloxetine 60 MG Delayed Release Oral Capsule 05/06/2020 12:00:00 A M EST eCW1 ([facility]) FreeStyle Ralph 14 Day Perry - 04/07/2020 12:00:00 AM EDT eCW1 ([facility]) FreeStyle Ralph 14 Day Sensor - 04/07/2020 12:00:00 AM EDT eCW1 ([facility]) FreeStyle Ralph 14 Day Sensor - 04/07/2020 12:00:00 AM EDT eCW1 ([facility]) FreeStyle Ralph 14 Day Perry - 04/07/2020 12:00:00 AM EDT eCW1 ([facility]) FreeStyle Ralph 14 Day Sensor - 11/07/2019 12:00:00 AM EDT eCW1 ([facility]) duloxetine 20 MG Delayed Release Oral Capsule 10/31/2019 12:00:00 A M EDT eCW1 ([facility]) duloxetine 20 MG Delayed Release Oral Capsule 10/31/2019 12:00:00 A M EDT eCW1 ([facility]) duloxetine 20 MG Delayed Release Oral Capsule 10/31/2019 12:00:00 A M EDT eCW1 ([facility]) duloxetine 20 MG Delayed Release Oral Capsule 10/31/2019 12:00:00 A M EDT eCW1 ([facility]) duloxetine 20 MG Delayed Release Oral Capsule 10/31/2019 12:00:00 A M EDT eCW1 ([facility]) duloxetine 20 MG Delayed Release Oral Capsule 10/31/2019 12:00:00 A M EDT eCW1 ([facility]) duloxetine 20 MG Delayed Release Oral Capsule 10/30/2019 12:00:00 A M EDT eCW1 ([facility]) Basaglar KwikPen 100 UNIT/ML 10/27/2019 12:00:00 AM EDT eCW1 ([facility]) Basaglar KwikPen 100 UNIT/ML 10/27/2019 12:00:00 AM EDT eCW1 ([facility]) Basaglar KwikPen 100 UNIT/ML 10/27/2019 12:00:00 AM EDT eCW1 ([facility]) empagliflozin 10 MG Oral Tablet [Jardiance] 09/13/2019 12:00:00 AM EDT eCW1 ([facility]) Omeprazole 20 MG Delayed Release Oral Capsule 07/18/2019 12:00:00 A M EST eCW1 ([facility]) Naproxen 500 MG Oral Tablet 07/18/2019 12:00:00 AM EST eCW1 ([facility])
[2020-08-06 09:45] VITALS: BP 191/83
[2020-08-06 10:10] LABS: HEMATOCRIT 36.9 % (36.0-47.0); HEMOGLOBIN 12.1 g/dl (12.0-15.5); MEAN CORPUSCULAR HEMOGLOBIN 27.7 pg (27.0-33.0); MEAN CORPUSCULAR HGB CONC 32.8 g/dl (32.0-36.5); MEAN CORPUSCULAR VOLUME 84.4 fl (80.0-96.0); RED BLOOD COUNT 4.37 10^6/uL (4.00-5.40)
[2020-08-06 10:11] LABS: PLATELET COUNT, AUTOMATED 90 10^3/uL (150-450)
[2020-08-06] MEDS ORDERED: SCOPOLAMINE 1MG TRANSDERMAL PATCH TOP ONE (10:15)
[2020-08-06] MEDS ORDERED: OXYMETAZOLINE 0.05% NASAL SPRAY (AFRIN) As Ordered ONE (10:32)
[2020-08-06] MEDS ORDERED: LIDOCAINE W/EPINEPHRINE 1% 20ML VIAL As Ordered ONE (10:32)
[2020-08-06 10:44] LABS: BLOOD UREA NITROGEN 18 MG/DL (7-18); CALCIUM LEVEL 9.6 MG/DL (8.5-10.1); CARBON DIOXIDE LEVEL 27 MEQ/L (21-32); CHLORIDE LEVEL 103 MEQ/L (98-107); CREATININE FOR GFR 0.89 MG/DL (0.55-1.30); GLOMERULAR FILTRATION RATE > 60.0 (>51); GLUCOSE, FASTING 413 MG/DL (70-100); POTASSIUM SERUM 4.3 MEQ/L (3.5-5.1); SODIUM LEVEL 139 MEQ/L (136-145)
[2020-08-06] MEDS ORDERED: GLUCAGON INJ 1MG VIAL SC PRN (11:00)
[2020-08-06] MEDS ORDERED: DEXTROSE 50% 50 ML SYRINGE IV PRN (11:00)
[2020-08-06] MEDS ORDERED: GLUCOSE 4GM CHEW TABLET PO PRN (11:00)
[2020-08-06] MEDS ORDERED: HumaLOG INSULIN (NovoLOG) PER UNIT SC ONE ×3 (11:00→12:00)
== END 2020-08-06 12:38 | disposition home or self-care (01) ==
LOC: M SDC 09:10
PROVIDERS: ATTEND Dentist Oral and Maxillofacial Surgery
DX: K02.9 Dental caries, unspecified (principal); Z53.09 Procedure and treatment not carried out because of other contraindication; Z91.048 Other nonmedicinal substance allergy status

== ENCOUNTER → 2020-09-29 | Outpatient (REF) | payer OTHER ==
[~2020-09-29] MED LIST changes: -LIDOCAINE 1% MDV 20ML VIAL SQ PRN; -LR 1,000 ML IV ONE
== END ==
LOC: M LAB REF 12:39
PROVIDERS: ATTEND Nurse Practitioner Family
DX: R30.0 Dysuria (principal)

== ENCOUNTER 2020-11-18 15:17 | Inpatient (IN) | payer OTHER ==
[~2020-11-18] VITALS: Ht 162.6 cm; Wt 106.2 kg
[2020-11-18 16:23] LABS: BASO % 0.8 % (0.0-1.0); EOS # 0.1 10^3/uL (0.0-0.5); EOS % 2.1 % (0.0-3.0); HEMATOCRIT 39.5 % (36.0-47.0); HEMOGLOBIN 12.6 g/dl (12.0-15.5); LYMPH # 1.1 10^3/uL (1.5-5.0); LYMPH % 20.1 % (24.0-44.0); MEAN CORPUSCULAR HEMOGLOBIN 27.2 pg (27.0-33.0); MEAN CORPUSCULAR HGB CONC 31.9 g/dl (32.0-36.5); MEAN CORPUSCULAR VOLUME 85.3 fl (80.0-96.0); MONO # 0.4 10^3/uL (0.0-0.8); MONO % 7.2 % (2.0-8.0); NEUTROPHILS # 3.7 10^3/uL (1.5-8.5); PLATELET COUNT, AUTOMATED 129 10^3/uL (150-450); RED BLOOD COUNT 4.63 10^6/uL (4.00-5.40); WHITE BLOOD COUNT 5.3 10^3/uL (4.0-10.0)
--- NOTE | 2020-11-18 16:45 | REP ---
INDICATION: DYSPNEA/COUGH. COMPARISON: Comparison radiograph October 30, 2018. TECHNIQUE: Portable upright AP chest radiograph. FINDINGS: The lungs are well inflated and free of infiltrate. Pleural angles are sharp. Heart size is normal. Pulmonary vasculature is not increased. IMPRESSION: No active disease. <Electronically signed by Ish Zelaya > 11/18/20 [id number]
[2020-11-18 17:17] LABS: ALBUMIN 2.3 GM/DL (3.2-5.2); ALT/SGPT 30 U/L (12-78); BILIRUBIN,DIRECT 0.4 MG/DL (0.0-0.2); BLOOD UREA NITROGEN 19 MG/DL (7-18); CALCIUM LEVEL 9.1 MG/DL (8.5-10.1); CARBON DIOXIDE LEVEL 21 MEQ/L (21-32); CHLORIDE LEVEL 98 MEQ/L (98-107); CK-MB VALUE MASS 2.5 NG/ML (<3.6); CPK CREATINE PHOSPHOKINASE 132 U/L (26-192); CREATININE FOR GFR 1.08 MG/DL (0.55-1.30); GLOMERULAR FILTRATION RATE 56.3 (>51); GLUCOSE, FASTING 570 MG/DL (70-100); LIPASE 82 U/L (73-393); MB/CK RELATIVE INDEX 1.89 (< OR =4); POTASSIUM SERUM 3.8 MEQ/L (3.5-5.1); SODIUM LEVEL 132 MEQ/L (136-145); THYROXINE (T4) 7.9 UG/DL (4.5-12.0); TOTAL PROTEIN 6.9 GM/DL (6.4-8.2); TROPONIN I < 0.02 NG/ML (< 0.10)
[2020-11-18] MEDS ORDERED: ISOVUE-370 76% 100ML VIAL As Ordered ONE (17:37)
[2020-11-18 17:50] LABS: INR 0.95; PROTHROMBIN TIME 12.9 SECONDS (12.5-14.3)
[2020-11-18] MEDS ORDERED: HumuLIN R (REGULAR) INSULIN (NovoLIN R) **100U/ML** PER UNIT IV ONE (18:35)
--- NOTE | 2020-11-18 18:49 | REPVR ---
PROCEDURE INFORMATION: Exam: CT Abdomen And Pelvis With Contrast Exam date and time: 11/18/2020 5:34 PM Age: 55 years old Clinical indication: Mass, lump, or swelling; Generalized; Abdominal pain; Additional info: Abdominal pain; Swelling TECHNIQUE: Imaging protocol: Computed tomography of the abdomen and pelvis with contrast. Radiation optimization: All CT scans at this facility use at least one of these dose optimization techniques: automated exposure control; mA and/or kV adjustment per patient size (includes targeted exams where dose is matched to clinical indication); or iterative reconstruction. Contrast material: ISOVUE 370; Contrast volume: 100 ml; Contrast route: INTRAVENOUS (IV); COMPARISON: CT ABD PELVIS WITH CONTRAST 01/08/2019 3:55 PM FINDINGS: Lungs: Linear atelectasis within the right lower lobe. Liver: Hepatic cirrhosis. No hepatic mass or duct dilatation. Gallbladder and bile ducts: Unremarkable. No calcified stones. No ductal dilation. Pancreas: Unremarkable. No ductal dilation. Spleen: Splenomegaly. No focal splenic lesion. Adrenal glands: Normal. No mass. Kidneys and ureters: Nonobstructing punctate stone in the right kidney midpole (image 83, series 201). Too small to accurately characterize low-density lesion within the right kidney (image 76, series 201) likely cyst. No right hydronephrosis. Normal left kidney and left ureter. Stomach and bowel: Unremarkable. No obstruction. No mucosal thickening. Appendix: No evidence of appendicitis. Intraperitoneal space: Moderate to large volume of abdominal and pelvic ascites. Findings suspicious for tiny hernia defects within the midline of the anterior abdominal wall through which small peritoneal reflections and ascites protrude (axial images 119 through 128, series 201). Vasculature: Dilated portal and splenic veins consistent with portal venous hypertension. Prominent portosystemic collateral vessels and small gastroesophageal varices. Mild atherosclerosis of the abdominal aorta and branch vessels. No aneurysm. Lymph nodes: Unremarkable. No enlarged lymph nodes. Urinary bladder: Unremarkable as visualized. Reproductive: Status post hysterectomy. Bones/joints: Degenerative spondylosis of the lumbar spine. No fracture or suspicious bone lesion. Soft tissues: Extensive edema and fluid throughout the subcutaneous tissues of the abdomen and pelvis. IMPRESSION: 1. Hepatic cirrhosis and portal venous hypertension with prominent portosystemic collateral vessels and small gastroesophageal varices. 2. Moderate to large volume of abdominal and pelvic ascites. 3. Findings suspicious for tiny hernia defects within the midline of the anterior abdominal wall through which small peritoneal reflections containing ascites protrude. 4. Anasarca. 5. Right nephrolithiasis and too small to accurately characterize right renal low-density lesion, likely tiny cyst. COMMENTS: Consistent with the [employer]'s Incidental Findings Committee white paper (J Am Kayla Radiol 2018): Any incidental renal lesion less than 1 cm or classified as too small to characterize, or any incidental cystic renal lesion characterized as simple-appearing, is likely benign. No follow-up imaging is recommended for these lesions per consensus recommendations based on imaging criteria. Electronically signed by: Oneil Lazo On 11/18/2020 18:49:31 PM
[2020-11-18] MEDS ORDERED: MORPHINE 2 MG/ML 1ML VIAL (J2270) IV ONE (18:50)
[2020-11-18] MEDS ORDERED: ACETAMINOPHEN TAB 650MG DOSE (2X325MG) PO PRN (19:40)
[2020-11-18] MEDS ORDERED: GLUCOSE 4GM CHEW TABLET PO PRN (19:40)
[2020-11-18] MEDS ORDERED: GLUCAGON INJ 1MG VIAL SC PRN (19:40)
[2020-11-18] MEDS ORDERED: DEXTROSE 50% 50 ML SYRINGE IV PRN (19:40)
[2020-11-18] MEDS ORDERED: MOM 30ML SUSPENSION UDC PO PRN (19:40)
[2020-11-18] MEDS ORDERED: MAALOX 30 ML SUSP *UDC PO PRN (19:40)
--- NOTE | 2020-11-18 20:00 | ECGEPIP ---
[facility] - ED Test Date: 2020-11-18 Pat Name: RUSSELL HUGHES Department: Room: - Gender: Female [place]: : 1965 Requested By: JACK Simon Order Number: [id number] Reading MD: Jack Avila Measurements Intervals [place] Rate: 92 P: 56 LA: 138 QRS: 23 QRSD: 100 T: 43 QT: 380 QTc: 469 Interpretive Statements Sinus rhythm with premature supraventricular complexes Nonspecific ST-T wave abnormalities Similar to tracing done 10-19-15 but with ectopy Electronically Signed on 11-18-2020 19:59:47 EDT by Jack Avila
[2020-11-18] MEDS ORDERED: NORT25CA2 PO (20:01)
[2020-11-18] MEDS ORDERED: BASA100I SC (20:01)
[2020-11-18] MEDS ORDERED: LORATADINE 10 MG TAB PO PRN (20:35)
[2020-11-18] MEDS ORDERED: MECLIZINE 25 MG TABLET PO PRN (20:35)
[2020-11-18] MEDS ORDERED: tiZANidine 4 MG TAB PO PRN (20:35)
[2020-11-18] MEDS ORDERED: SUMAtriptan SUCCINATE 25 MG TAB PO PRN (20:35)
[2020-11-18 20:53] LABS: VENOUS BASE EXCESS -2.4 (-2.0-2.0); VENOUS PARTIAL PRESSURE CO2 32.1 mmHg (38.0-50.0); VENOUS PARTIAL PRESSURE O2 147.4 mmHg (30.0-50.0); VENOUS PH 7.434 UNITS (7.330-7.430); VENOUS STANDARD HCO3 22.5 MEQ/L
[2020-11-18] MEDS ORDERED: HumaLOG INSULIN (NovoLOG) PER UNIT SC SCH (21:00)
--- NOTE | 2020-11-18 21:07 | HPEPDOC ---
[facility] Medical History & Physical Date of Admission November 18, 2020 Date of Service: November 18, 2020 Attending Physician: ROSCOE GODFREY MD History and Physical CHIEF COMPLAINT: [55 y/o female c/o abd swelling x1 month] HISTORY OF PRESENT ILLNESS: [This is a 55 y/o female with a pmh of poorly contro lled dm2 with neuropathy, cirrhosis, portal htn, hld, htn and sonja who presents to our ED on 11/18 with a cc of abdominal swelling x1 month. Patient states that she was diagnosed with hepatic cirrhosis many years ago but has never had this issue happen to her before. Patient states that the swelling has gotten worse over time and is now impacting her daily activities. Patient states that she is increasingly sob and cannot perform much activity anymore with all the fluid on her stomach. Patient states that she has generalized abdominal pain and some nausea. Patient denies vomiting, hematemesis, fevers, chills, chest pain, cough, syncope.] PAST MEDICAL HISTORY: 1. [See HPI PAST SURGICAL HISTORY: 1. [ x3]. 2. [Unspecified hernia repairs x4]. SOCIAL HISTORY: Tobacco use:[Denies] ETOH: [Denies] Illicit drug use: [Denies] FAMILY HISTORY: Reviewed - none pertinent ALLERGIES: Please see below. REVIEW OF SYSTEMS: CONSTITUTIONAL: [See HPI]. HEENT: [Denies uri sx]. CARDIOVASCULAR: [Denies chest pain, palpitations]. RESPIRATORY: [See HPI]. GASTROINTESTINAL: [See HPI]. GENITOURINARY: [Denies dysuria]. SKIN: [Denies rash]. MUSCULOSKELETAL: [Denies acute joint/back pain]. NEUROLOGICAL: [Admits to paresthesia of lower extremities]. PSYCHIATRIC: [Admits to anxiety]. ENDOCRINE: [Hx of DM]. HEMATOLOGIC/LYMPHATIC: [Denies easy bruising]. HOME MEDICATIONS: Please see below. PHYSICAL EXAMINATION: VITAL SIGNS: Please see below. GENERAL APPEARANCE: [55 y/o female who appears much older than her stated age. She is laying in bed and appears to have increased work of breathing]. HEENT: [No mass or lesion. No scleral icterus. No conjunctival erythema. Nares patent. Oral mucosa moist without erythema.]. CARDIOVASCULAR: [REgular rate, rhythm. 3/6 systolic murmur appreciated.]. LUNGS: [Good air flow b/l. No wheezing, rales rhonchi.]. ABDOMEN: [Grossly distended. Firm to the touch and tender to all quadrants with deep palpation.]. Rectal: No blood visualized. Good voluntary rectal tone. Sensation intact. MUSCULOSKELETAL: [No joint deformity noted]. EXTREMITIES: [Lower extremities edematous to the knee b/l. No overlying skin changes. Pulses intact.]. NEUROLOGICAL: [Sensation decreased in b/l lower extremity. Speech clear. A+Ox3. No focal deficits]. PSYCHIATRIC: [Patient is tearful and upset during discussion of her diagnosis. Affect appears appropriate.]. LABORATORY DATA: See below. IMAGING: [CXR: FINDINGS: The lungs are well inflated and free of infiltrate. Pleural angles are sharp. Heart size is normal. Pulmonary vasculature is not increased. IMPRESSION: No active disease. CT abd/pelvis: FINDINGS: Lungs: Linear atelectasis within the right lower lobe. Liver: Hepatic cirrhosis. No hepatic mass or duct dilatation. Gallbladder and bile ducts: Unremarkable. No calcified stones. No ductal dilation. Pancreas: Unremarkable. No ductal dilation. Spleen: Splenomegaly. No focal splenic lesion. Adrenal glands: Normal. No mass. Kidneys and ureters: Nonobstructing punctate stone in the right kidney midpole (image 83, series 201). Too small to accurately characterize low-density lesion within the right kidney (image 76, series 201) likely cyst. No right hydronephrosis. Normal left kidney and left ureter. Stomach and bowel: Unremarkable. No obstruction. No mucosal thickening. Appendix: No evidence of appendicitis. Intraperitoneal space: Moderate to large volume of abdominal and pelvic ascites. Findings suspicious for tiny hernia defects within the midline of the anterior abdominal wall through which small peritoneal reflections and ascites protrude (axial images 119 through 128, series 201). Vasculature: Dilated portal and splenic veins consistent with portal venous hypertension. Prominent portosystemic collateral vessels and small gastroesophageal varices. Mild atherosclerosis of the abdominal aorta and branch vessels. No aneurysm. Lymph nodes: Unremarkable. No enlarged lymph nodes. Urinary bladder: Unremarkable as visualized. Reproductive: Status post hysterectomy. Bones/joints: Degenerative spondylosis of the lumbar spine. No fracture or suspicious bone lesion. Soft tissues: Extensive edema and fluid throughout the subcutaneous tissues of the abdomen and pelvis. IMPRESSION: 1. Hepatic cirrhosis and portal venous hypertension with prominent portosystemic collateral vessels and small gastroesophageal varices. 2. Moderate to large volume of abdominal and pelvic ascites. 3. Findings suspicious for tiny hernia defects within the midline of the anterior abdominal wall through which small peritoneal reflections containing ascites protrude. 4. Anasarca. 5. Right nephrolithiasis and too small to accurately characterize right renal low-density lesion, likely tiny cyst.] MICROBIOLOGY: Please see below. ASSESSMENT: [This is a 55 y/o female with a pmh of poorly controlled dm2 with neuropathy, cirrhosis, portal htn, hld, htn and sonja who presents to our ED on 11/18 with a cc of abdominal swelling x1 month. Patient found to have mod-severe amount of ascites on imaging and clinically in the ED. Patient also found to have portal htn and gastroesophageal varices on imaging. Of note, patient also profoundly hyperglycemic at 540 with open anion gap once sodium is corrected. However patient not found to have metabolic acidosis or signficiant ketones.]. . PLAN: 1. [Ascites d/t cirrhosis with portal htn - Consult to IR placed for therapeutic/diagnostic paracentesis - Suspicion for spontaneous bacterial peritonitis in the patient is very low. Patient does not show signs/symptoms of infection on labs or clinically. - Liver enzymes normal in the ed - will trend - ammonia normal in the ed and pt not having ams - no suspicion for hepatic encephalopathy - patient will likely need egd at some point for evaluation of varices seen on ct exam - tylenol/morphine for pain, zofran/reglan for nausea - no added salt diet - albumin replacement ordered - admit to pcu for w/u and tx of ascites 2. DM2 with hyperglycemia - Patients blood sugar found to be 570 upon presentation to the ed, given 10 units - Will continue patients at home basal insulin twice daily, as well as 20 units nightly lispro - will place patient on our sliding scale protocol as well - hypoglycemic protocol 3. New murmur - Asymptomatic. - Echo ordered 4. HTN - lisinopril, hctz 5. hld - continue atorvastatin 6. sonja - patient does not wear cpap at home 7. anxiety/depression - continue nortriptyline, buspar 8. gerd - continue omeprazole 9. migraines - zanaflex, sumatriptan DVT prophylaxis - Lovenox]. Vital Signs Vital Signs Date Time Temp Pulse Resp B/P (MAP) Pulse Ox O2 Delivery O2 Flow Rate FiO2 11/18/20 19:00 20 11/18/20 17:32 96 98 11/18/20 17:30 155/68 (97) 11/18/20 15:18 97.6 Room Air Laboratory Data Labs 24H Laboratory Tests 2 11/18/20 15:41: Immature Granulocyte % (Auto) 0.8, Neutrophils (%) (Auto) 69.0H, Lymphocytes (%) (Auto) 20.1L, Monocytes (%) (Auto) 7.2, Eosinophils (%) (Auto) 2.1, Basophils (%) (Auto) 0.8, Neutrophils # (Auto) 3.7, Lymphocytes # (Auto) 1.1L, Monocytes # (Auto) 0.4, Eosinophils # (Auto) 0.1, Basophils # (Auto) 0.0, Nucleated Red Blood Cells % (auto) 0.0, Prothrombin Time 12.9, Prothromb Time International Ratio 0.95, Activated Partial Thromboplast Time 24.0L, Urine Color YELLOW, Urine Appearance HAZY, Urine pH 6.0, Urine Specific [place] 1.033, Urine Protein 1+H, Urine Glucose (UA) 3+H, Urine Ketones TRACEH, Urine Blood 3+H, Urine Nitrite NEGATIVE, Urine Bilirubin NEGATIVE, Urine Urobilinogen 0.2, Urine Leukocyte Esterase TRACEH, Urine WBC (Auto) 17H, Urine RBC (Auto) 50H, Urine Hyaline Casts (Auto) 0, Urine Bacteria (Auto) 1+H, Urine Squamous Epithelial Cells 1, Urine Mucus (Auto) SMALL, Urine Sperm (Auto) , Anion Gap 13, Glomerular Filtration Rate 56.3, Calcium Level 9.1, Total Bilirubin 1.0, Direct Bilirubin 0.4H, Aspartate Amino Transf (AST/SGOT) 33, Alanine Aminotransferase (ALT/SGPT) 30, Alkaline Phosphatase 248H, Ammonia 26, Total Creatine Kinase 132, Creatine Kinase MB 2.5, Creatine Kinase MB Relative Index 1.89, Troponin I < 0.02, Total Protein 6.9, Albumin 2.3L, Albumin/Globulin Ratio 0.5L, Lipase 82, Thyroid Stimulating Hormone (TSH) 3.740, Thyroxine (T4) 7.9 11/18/20 18:48: Bedside Glucose (Misc Panel) 524*H 11/18/20 20:14: Bedside Glucose (Misc Panel) 451H 11/18/20 20:19: 11/18/20 20:44: CBC/BMP Laboratory Tests 11/18/20 15:41 Microbiology Microbiology 11/18/20 Urine Culture, Received Pending Home Medications Scheduled Atorvastatin Calcium (Atorvastatin Calcium) 80 Mg Tab, 80 MG PO QHS Buspirone HCl (Buspirone HCl) 10 Mg Tab, 10 MG PO BID Docusate Sodium (Colace) 100 Mg Cap, 100 MG PO DAILY Ertugliflozin Pidolate (Steglatro) 5 Mg Tablet, 5 MG PO DAILY Ferrous Sulfate (Ferrous Sulfate) 325 Mg Tab, 325 MG PO DAILY Hydrochlorothiazide (Hydrochlorothiazide) 25 Mg Tab, 25 MG PO DAILY Insulin Glargine,Hum.rec.anlog (Basaglar Kwikpen U-100) 100 Unit/1 Ml Insuln.pen, 70 UNIT PO QAM Insulin Glargine,Hum.rec.anlog (Basaglar Kwikpen U-100) 100 Unit/1 Ml Insuln.pen, 80 UNIT SC QHS Insulin Lispro (Admelog) 100 Unit/1 Ml Vial, 20 UNITS SC QPM Lisinopril (Lisinopril) 10 Mg Tab, 10 MG PO DAILY Metformin HCl (Metformin HCl) 1,000 Mg Tab, 1,000 MG PO BID Metoclopramide HCl (Metoclopramide HCl) 10 Mg Tablet, 10 MG PO BID Nortriptyline HCl (Nortriptyline HCl) 25 Mg Capsule, 25 MG PO QHS Omeprazole (Omeprazole) 40 Mg Cap, 40 MG PO BID Pioglitazone HCl (Pioglitazone HCl) 30 Mg Tab, 30 MG PO DAILY Vitamin E Acetate (Vitamin E) 1,000 Unit Capsule, 1,000 UNIT PO DAILY Scheduled PRN Loratadine (Loratadine) 10 Mg Tab, 10 MG PO DAILY PRN for ALLERGIES Meclizine HCl (Meclizine HCl) 25 Mg Tab, 25 MG PO BID PRN for DIZZINESS Sumatriptan Succinate (Sumatriptan Succinate) 25 Mg Tab, 25 MG PO BID PRN for MIGRAINE Tizanidine HCl (Tizanidine HCl) 4 Mg Tablet, 1 TAB PO QHS PRN for SPASMS Allergies Coded Allergies: TAPE (Verified Allergy, Intermediate, [facility]- [facility], 08/03/20) WOOL (FABRIC) (Unverified Allergy, Unknown, 08/03/20) A-FIB/CHADSVASC A-FIB History Current/History of A-Fib/PAF?: No JESU MARION November 18, 2020 21:07
[2020-11-18 21:13] LABS: RSV AMPLIFICATION NEGATIVE (NEGATIVE)
[2020-11-18] MEDS ORDERED: MORPHINE 2 MG/ML 1ML VIAL (J2270) IV PRN (21:25)
[2020-11-18] MEDS ORDERED: ONDANSETRON 4MG/2ML VIAL IV PRN (21:25)
[2020-11-18 21:46] VITALS: BP 141/62
[2020-11-18 22:24] VITALS: BP 127/60
[2020-11-18 23:00] VITALS: BP 150/67
[2020-11-19] VITALS: BP 107/56
[2020-11-19] MEDS: HumaLOG INSULIN (NovoLOG) PER UNIT SC SCH ×5 (00:27→21:11)
[2020-11-19] MEDS: OMEPRAZOLE 20 MG CAP PO SCH ×3 (00:29→21:12)
[2020-11-19] MEDS: LEVEMIR (INSULIN DETEMIR) 1 UNITS/0.01ML SC SCH ×3 (00:29→21:11)
[2020-11-19] MEDS: DOCUSATE SODIUM 100MG CAPSULE PO SCH ×3 (00:29→21:12)
[2020-11-19] MEDS: busPIRone 10 MG TAB PO SCH ×3 (00:30→21:12)
[2020-11-19] MEDS: ATORVASTATIN 20 MG TAB PO SCH ×2 (00:30→21:12)
[2020-11-19] MEDS: NORTRIPTYLINE 25 MG CAP PO SCH ×2 (00:30→21:12)
[2020-11-19] MEDS: METOCLOPRAMIDE 10 MG TAB PO SCH ×3 (00:38→21:12)
[2020-11-19 04:00] VITALS: BP 110/55
[2020-11-19 05:55] LABS: HEMATOCRIT 33.7 % (36.0-47.0); HEMOGLOBIN 10.8 g/dl (12.0-15.5); MEAN CORPUSCULAR VOLUME 84.3 fl (80.0-96.0); WHITE BLOOD COUNT 3.5 10^3/uL (4.0-10.0)
[2020-11-19 06:15] LABS: PLATELET COUNT, AUTOMATED 94 10^3/uL (150-450)
[2020-11-19 06:25] LABS: BLOOD UREA NITROGEN 18 MG/DL (7-18); CALCIUM LEVEL 8.9 MG/DL (8.5-10.1); CARBON DIOXIDE LEVEL 24 MEQ/L (21-32); CHLORIDE LEVEL 104 MEQ/L (98-107); CREATININE FOR GFR 0.87 MG/DL (0.55-1.30); GLOMERULAR FILTRATION RATE > 60.0 (>51); GLUCOSE, FASTING 288 MG/DL (70-100); POTASSIUM SERUM 3.3 MEQ/L (3.5-5.1); SODIUM LEVEL 135 MEQ/L (136-145)
[2020-11-19 06:26] LABS: ALT/SGPT 24 U/L (12-78); BILIRUBIN,TOTAL 0.7 MG/DL (0.2-1.0); TOTAL PROTEIN 5.9 GM/DL (6.4-8.2)
[2020-11-19] MEDS: ENOXAPARIN 40MG/0.4ML SYRINGE (J1650 PER 10MG) SC SCH (07:50)
[2020-11-19] MEDS: FERROUS SULFATE 325MG TAB PO SCH (07:59)
[2020-11-19 08:00] VITALS: BP 122/57
[2020-11-19 11:34] VITALS: BP 109/53
[2020-11-19] MEDS ORDERED: POTASSIUM CHLORIDE 10 MEQ SR TABLET PO ONE (12:00)
[2020-11-19 12:27] LABS: ACETONE/KETONE 10.94 MG/DL (<2.81)
--- NOTE | 2020-11-19 12:27 | IPNPDOC ---
Subjective Date Seen The patient was seen on 11/19/20. Subjective Chief Complaint/HPI Mrs. Esposito is a 55 year old female with liver cirrhosis and poorly controlled DM2 with neuropathy who is here for worsening cirrhosis. This morning, she feels about the same. Abdomen still distended with abdominal pain. Ordered for paracentesis today. Objective Physical Examination General Exam: Positive: Alert, Cooperative Eye Exam: Negative: Sclera icteric Chest Exam: Positive: Clear to auscultation Heart Exam: Positive: Rate Normal, Regular Rhythm Extremity Exam: Positive: Edema (bilateral pitting edema) Neuro Exam: Positive: Normal Speech Psych Exam: Positive: Oriented x 3 Assessment /Plan Assessment Mrs. Esposito is a 55 year old female with liver cirrhosis and poorly controlled DM2 with neuropathy who is here for worsening cirrhosis. Ordered for paracentesis to be performed today. Otherwise, will continue monitoring glucose and adjusting insulin. Her diabetes mellitus is poorly controlled. Last HbA1c (in 2019) was 13. Will recheck another HbA1c during this hospitalization. After paracentesis, will consider changing antihypertensives to spironolactone and furosemide to help keep the fluid off. Plan/VTE VTE Prophylaxis Ordered?: Yes Plan 1. Decompensated cirrhosis -Patient's has ascites. Planning for diagnostic paracentesis today -No signs of hepatic encephalopathy -Child-Pemberton Score of 9 (class B) -2gm sodium diet -Consider switching antihypertensives to spironolactone and furosemide if ascites is consistent with ascites from cirrhosis 2. Poorly controlled DM2 with diabetic neuropathy -Blood glucose improved from admission -Continue basal and sliding scale insulin -Carbohydrate consistent diet -Will recheck HbA1c 3. New heart murmur -Echocardiogram ordered 4. Hypertension -Currently on Lisinopril and HCTZ -Consider switching antihypertensives to spironolactone and furosemide if ascites from cirrhosis 5. Hypertension -Continue atorvastatin 6. Anxiety/depression -Continue nortriptyline and BuSpar 7. GERD -Continue omeprazole 8. Migraines -Continue Zanaflex and sumatriptan 9. DVT ppx -On hold today for paracentesis Disposition: Pending paracentesis and results. Pending clinical improvement. VS, I&O, 24H, Fishbone Vital Signs/I&O Vital Signs Date Time Temp Pulse Resp B/P (MAP) Pulse Ox O2 Delivery O2 Flow Rate FiO2 11/19/20 11:34 97.6 89 16 109/53 (71) 94 Room Air I&O- Last 24 Hours up to 6 AM 11/19/20 06:00 Intake Total 490.0 ml Output Total 1300 ml Balance -810.0 ml Laboratory Data 24H LABS Laboratory Tests 2 11/18/20 15:41: Immature Granulocyte % (Auto) 0.8, Neutrophils (%) (Auto) 69.0H, Lymphocytes (%) (Auto) 20.1L, Monocytes (%) (Auto) 7.2, Eosinophils (%) (Auto) 2.1, Basophils (%) (Auto) 0.8, Neutrophils # (Auto) 3.7, Lymphocytes # (Auto) 1.1L, Monocytes # (Auto) 0.4, Eosinophils # (Auto) 0.1, Basophils # (Auto) 0.0, Nucleated Red Blood Cells % (auto) 0.0, Prothrombin Time 12.9, Prothromb Time International Ratio 0.95, Activated Partial Thromboplast Time 24.0L, Urine Color YELLOW, Urine Appearance HAZY, Urine pH 6.0, Urine Specific [place] 1.033, Urine Protein 1+H, Urine Glucose (UA) 3+H, Urine Ketones TRACEH, Urine Blood 3+H, Urine Nitrite NE GATIVE, Urine Bilirubin NEGATIVE, Urine Urobilinogen 0.2, Urine Leukocyte Esterase TRACEH, Urine WBC (Auto) 17H, Urine RBC (Auto) 50H, Urine Hyaline Casts (Auto) 0, Urine Bacteria (Auto) 1+H, Urine Squamous Epithelial Cells 1, Urine Mucus (Auto) SMALL, Urine Sperm (Auto) , Anion Gap 13, Glomerular Filtration Rate 56.3, Calcium Level 9.1, Total Bilirubin 1.0, Direct Bilirubin 0.4H, Aspartate Amino Transf (AST/SGOT) 33, Alanine Aminotransferase (ALT/SGPT) 30, Alkaline Phosphatase 248H, Ammonia 26, Total Creatine Kinase 132, Creatine Kinase MB 2.5, Creatine Kinase MB Relative Index 1.89, Troponin I < 0.02, Total Protein 6.9, Albumin 2.3L, Albumin/Globulin Ratio 0.5L, Lipase 82, Thyroid Stimulating Hormone (TSH) 3.740, Thyroxine (T4) 7.9 11/18/20 18:48: Bedside Glucose (Misc Panel) 524*H 11/18/20 20:14: Bedside Glucose (Misc Panel) 451H 11/18/20 20:19: Coronavirus (COVID-19)(PCR) NEGATIVE, Influenza Type A (RT-PCR) NEGATIVE, Infl uenza Type B (RT-PCR) NEGATIVE, Respiratory Syncytial Virus (PCR) NEGATIVE 11/18/20 20:44: Blood Gas Puncture Site UNKNOWN, Blood Gas Bicarbonate Standard 22.5, Venous Blood pH 7.434H, Venous Blood Partial Pressure CO2 32.1L, Venous Blood Partial Pressure O2 147.4H, Venous Blood Total Carbon Dioxide 22.0L, Venous Blood HCO3 21.0L, Venous Blood Oxygen Saturation 99.0H, Venous Blood Base Excess -2.4L 11/19/20 00:11: Bedside Glucose (Misc Panel) 449H 11/19/20 05:27: Nucleated Red Blood Cells % (auto) 0.0, Immature Platelet Fraction 2.6, Anion Gap 7L, Glomerular Filtration Rate > 60.0, Calcium Level 8.9, Magnesium Level 2.0, Total Bilirubin 0.7, Aspartate Amino Transf (AST/SGOT) 28, Alanine Aminotransferase (ALT/SGPT) 24, Alkaline Phosphatase 179H, Total Protein 5.9L, Albumin 2.0L, Albumin/Globulin Ratio 0.5L 11/19/20 11:33: Bedside Glucose (Misc Panel) 262H CBC/BMP Laboratory Tests 11/18/20 15:41 11/19/20 05:27 Microbiology Microbiology 11/18/20 Urine Culture, Received Pending WARREN NAIDU DO November 19, 2020 12:27
[2020-11-19 13:46] LABS: SPEC. GRAVITY BODY FLUIDS 1.011 (NOT ESTABLISHED)
[2020-11-19 13:56] LABS: APPEARANCE, BODY FLUID HAZY (CLEAR); ASCITES FL COLOR PALE YELLOW (COLORLESS); SOURCE, BODY FLUID ASCITES
[2020-11-19 14:55] LABS: SOURCE, BODY FLUID ALBUMIN ASCITES; SOURCE, BODY FLUID GLUCOSE ASCITES; SOURCE, BODY FLUID TOT PROTEIN ASCITES
[2020-11-19 16:00] VITALS: BP 116/58
[2020-11-19] MEDS ORDERED: SLF 3 ML SYR IV PRN (17:10)
[2020-11-19 20:00] VITALS: BP 119/58
[2020-11-19] MEDS: SLF 3 ML SYR IV SCH (21:20)
[2020-11-20] VITALS: BP 105/56
[2020-11-20 04:00] VITALS: BP 99/54
[2020-11-20 05:12] LABS: HEMATOCRIT 34.5 % (36.0-47.0); HEMOGLOBIN 11.1 g/dl (12.0-15.5); MEAN CORPUSCULAR HEMOGLOBIN 27.1 pg (27.0-33.0); MEAN CORPUSCULAR HGB CONC 32.2 g/dl (32.0-36.5); MEAN CORPUSCULAR VOLUME 84.4 fl (80.0-96.0); PLATELET COUNT, AUTOMATED 101 10^3/uL (150-450); RED BLOOD COUNT 4.09 10^6/uL (4.00-5.40); WHITE BLOOD COUNT 3.7 10^3/uL (4.0-10.0)
[2020-11-20 05:49] LABS: ALBUMIN 1.9 GM/DL (3.2-5.2); ALT/SGPT 30 U/L (12-78); BILIRUBIN,TOTAL 0.6 MG/DL (0.2-1.0); BLOOD UREA NITROGEN 23 MG/DL (7-18); CALCIUM LEVEL 8.7 MG/DL (8.5-10.1); CARBON DIOXIDE LEVEL 25 MEQ/L (21-32); CHLORIDE LEVEL 108 MEQ/L (98-107); CREATININE FOR GFR 0.73 MG/DL (0.55-1.30); GLOMERULAR FILTRATION RATE > 60.0 (>51); GLUCOSE, FASTING 113 MG/DL (70-100); POTASSIUM SERUM 3.8 MEQ/L (3.5-5.1); SODIUM LEVEL 139 MEQ/L (136-145); TOTAL PROTEIN 5.5 GM/DL (6.4-8.2)
[2020-11-20] MEDS: SLF 3 ML SYR IV SCH ×2 (06:21→11:42)
[2020-11-20 06:23] LABS: HEMOGLOBIN A1c > 14.0 %
[2020-11-20 07:02] VITALS: BP 110/58
[2020-11-20] MEDS: LEVEMIR (INSULIN DETEMIR) 1 UNITS/0.01ML SC SCH (08:06)
[2020-11-20] MEDS: HumaLOG INSULIN (NovoLOG) PER UNIT SC SCH ×2 (08:06→12:00)
[2020-11-20] MEDS: METOCLOPRAMIDE 10 MG TAB PO SCH (08:06)
[2020-11-20] MEDS: ENOXAPARIN 40MG/0.4ML SYRINGE (J1650 PER 10MG) SC SCH (08:06)
[2020-11-20] MEDS: FERROUS SULFATE 325MG TAB PO SCH (08:07)
[2020-11-20] MEDS: OMEPRAZOLE 20 MG CAP PO SCH (08:07)
[2020-11-20] MEDS: busPIRone 10 MG TAB PO SCH (08:07)
[2020-11-20] MEDS: DOCUSATE SODIUM 100MG CAPSULE PO SCH (08:07)
[2020-11-20] MEDS ORDERED: FUROSEMIDE 10MG PER 1/2 TABLET PO SCH (09:00)
[2020-11-20] MEDS ORDERED: SPIRONOLACTONE 25 MG TAB PO SCH (09:00)
--- NOTE | 2020-11-20 09:20 | REP ---
INDICATION: ascites. COMPARISON: None. TECHNIQUE: The procedure was performed under the direct supervision of Dr. Zelaya. The risks and benefits of the procedure were explained to the patient and informed consent was obtained. The largest pocket of fluid was localized in the right flank using ultrasound guidance. The skin was prepped and draped in a sterile fashion. 1% lidocaine was used as a local anesthetic. An 8-Libyan multi side-hole catheter was inserted using trocar technique.2850 cc of yellow fluid was withdrawn with a sample sent to the lab for analysis. The patient tolerated the procedure well and there were no immediate complications. After the appropriate amount of monitored convalescence, the patient was discharged from the department. FINDINGS: None IMPRESSION: Ultrasound-guided paracentesis [id number] cc of yellow fluid. <Electronically signed by Reece Araiza > 11/19/20 1709 <Electronically signed by Ish Zelaya > 11/20/20 [id number]
[2020-11-20 11:40] VITALS: BP 135/67
[2020-11-20] MEDS ORDERED: ALDA25TA2 PO (12:11)
[2020-11-20] MEDS ORDERED: FURO20TA2 PO (12:11)
--- NOTE | 2020-11-20 22:19 | DS.PDOC ---
Discharge Summary General Date of Admission November 18, 2020 at 19:36 Date of Discharge November 20, 2020 Discharge Summary PROCEDURES PERFORMED DURING STAY: Paracentesis on 11/19/2020 ADMITTING DIAGNOSES: 1. Ascites 2. DM type 2 3. New cardiac murmur 4. Hypertension 5. Hyperlipidemia 6. AISHWARYA 7. Anxiety/depression 8. GERD 9. Migraines DISCHARGE DIAGNOSES: 1. Ascites 2/2 cirrhosis 2. DM type 2 3. New cardiac murmur 4. Hypertension 5. Hyperlipidemia 6. AISHWARYA 7. Anxiety/depression 8. GERD 9. Migraines COMPLICATIONS/CHIEF COMPLAINT: Abdominal Ascites, Hepatic Cirrhosis. HISTORY OF PRESENT ILLNESS: Copied from admitting provider's H&P " This is a 55 y/o female with a pmh of poorly controlled dm2 with neuropathy, cirrhosis, portal htn, hld, htn and aishwarya who presents to our ED on 11/18 with a cc of abdominal swelling x1 month. Patient states that she was diagnosed with hepatic cirrhosis many years ago but has never had this issue happen to her before. Patient states that the swelling has gotten worse over time and is now impacting her daily activities. Patient states that she is increasingly sob and cannot perform much activity anymore with all the fluid on her stomach. Patient states that she has generalized abdominal pain and some nausea. Patient denies vomiting, hematemesis, fevers, chills, chest pain, cough, syncope. " HOSPITAL COURSE: Patient went for a paracentesis on 11/20/2020. SAAG was 1.6 (s katherine albumin 2 and fluid albumin 0.4). Patient's PMN was <250. Afterward paracentesis, patient exhibited soft blood pressures. This morning, blood pressure was initially low at 99/54, but recheck was 110/58. I discontinued patient's HCTZ and lisinopril and started patient on spironolactone and furos emide. Patient blood pressure was able to tolerate diuretic and BP 135/67. Patient felt well and better after the paracentesis. She felt ready for home and was subsequently discharged home. DISCHARGE MEDICATIONS: Please see below. ALLERGIES: Please see below. PHYSICAL EXAMINATION ON DISCHARGE: VITAL SIGNS: Please see below. GENERAL: Comfortable, in no apparent distress HEENT: Head normocephalic, atraumatic NECK: Supple CARDIOVASCULAR EXAMINATION: Regular rate and rhythm RESPIRATORY EXAMINATION: Lungs clear to auscultation bilaterally ABDOMINAL EXAMINATION: Soft, normal bowel sounds EXTREMITIES: Bilateral pitting edema NEUROLOGICAL EXAMINATION: CN 3-12 grossly intact PSYCHIATRIC EXAMINATION: Normal mood and affect LABORATORY DATA: Please see below. IMAGING: Radiologist interpretation CT abd/pelvis 1. Hepatic cirrhosis and portal venous hypertension with prominent portosystemic collateral vessels and small gastroesophageal varices. 2. Moderate to large volume of abdominal and pelvic ascites. 3. Findings suspicious for tiny hernia defects within the midline of the anterior abdominal wall through which small peritoneal reflections containing ascites protrude. 4. Anasarca. 5. Right nephrolithiasis and too small to accurately characterize right renal low-density lesion, likely tiny cyst. CXR No active disease PROGNOSIS: Good ACTIVITY: As tolerated. DIET: 2gm sodium and carbohydrate consistent diet DISCHARGE PLAN: Home DISPOSITION: 06 Home Health Service. DISCHARGE INSTRUCTIONS: 1. Follow up with your PCP within 1 week 2. Measure your blood pressure twice a day and record your results ITEMS TO FOLLOWUP ON ON OUTPATIENT: 1. Blood pressure after starting diuretics. Patient may need to increase diuretics to prevent worsening ascites 2. Echocardiogram results for new cardiac murmur DISCHARGE CONDITION: Stable. Total time spent on discharge planning, discharge summary, and medication reconciliation: 55 minutes Vital Signs/I&Os Vital Signs Date Time Temp Pulse Resp B/P (MAP) Pulse Ox O2 Delivery O2 Flow Rate FiO2 11/20/20 11:40 97.1 105 20 135/67 (89) 94 Room Air I&O- Last 24 Hours up to 6 AM 11/20/20 06:00 Intake Total 360 ml Balance 360 ml Laboratory Data Labs 24H Laboratory Tests 2 11/20/20 04:50: Nucleated Red Blood Cells % (auto) 0.0, Anion Gap 6L, Glomerular Filtration Rate > 60.0, Estimated Mean Plasma Glucose , Hemoglobin A1c > 14.0, Calcium Level 8.7, Magnesium Level 2.0, Total Bilirubin 0.6, Aspartate Amino Transf (AST/SGOT) 56H, Alanine Aminotransferase (ALT/SGPT) 30, Alkaline Phosphatase 185H, Total Protein 5.5L, Albumin 1.9L, Albumin/Globulin Ratio 0.5L 11/20/20 11:38: Bedside Glucose (Misc Panel) 170H CBC/BMP Laboratory Tests 11/20/20 04:50 FSBS Laboratory Tests Test 11/20/20 11:38 Range/Units Bedside Glucose (Misc Panel) 170 70-105 MG/DL Microbiology Microbiology 11/19/20 Gram Stain - Final, Resulted 11/19/20 Body Fluid Culture, Resulted Pending 11/18/20 Urine Culture - Final, Complete Raoultella Pl[place]ola Discharge Medications Scheduled Atorvastatin Calcium (Atorvastatin Calcium) 80 Mg Tab, 80 MG PO QHS, (Reported) Buspirone HCl (Buspirone HCl) 10 Mg Tab, 10 MG PO BID, (Reported) Docusate Sodium (Colace) 100 Mg Cap, 100 MG PO DAILY, (Reported) Ertugliflozin Pidolate (Steglatro) 5 Mg Tablet, 5 MG PO DAILY, (Reported) Ferrous Sulfate (Ferrous Sulfate) 325 Mg Tab, 325 MG PO DAILY, (Reported) Furosemide (Furosemide) 20 Mg Tablet, 10 MG PO DAILY Insulin Glargine,Hum.rec.anlog (Basaglar Kwikpen U-100) 100 Unit/1 Ml Insu ln.pen, 70 UNIT PO QAM, (Reported) Insulin Glargine,Hum.rec.anlog (Basaglar Kwikpen U-100) 100 Unit/1 Ml Insuln.pen, 80 UNIT SC QHS, (Reported) Insulin Lispro (Admelog) 100 Unit/1 Ml Vial, 20 UNITS SC QPM, (Reported) Metformin HCl (Metformin HCl) 1,000 Mg Tab, 1,000 MG PO BID, (Reported) Metoclopramide HCl (Metoclopramide HCl) 10 Mg Tablet, 10 MG PO BID, (Reported) Nortriptyline HCl (Nortriptyline HCl) 25 Mg Capsule, 25 MG PO QHS, (Reported) Omeprazole (Omeprazole) 40 Mg Cap, 40 MG PO BID, (Reported) Pioglitazone HCl (Pioglitazone HCl) 30 Mg Tab, 30 MG PO DAILY, (Reported) Spironolactone (Aldactone) 25 Mg Tablet, 25 MG PO DAILY Vitamin E Acetate (Vitamin E) 1,000 Unit Capsule, 1,000 UNIT PO DAILY, (Repo rted) Scheduled PRN Loratadine (Loratadine) 10 Mg Tab, 10 MG PO DAILY PRN for ALLERGIES, (Reported) Meclizine HCl (Meclizine HCl) 25 Mg Tab, 25 MG PO BID PRN for DIZZINESS, (Reported) Sumatriptan Succinate (Sumatriptan Succinate) 25 Mg Tab, 25 MG PO BID PRN for MIGRAINE, (Reported) Tizanidine HCl (Tizanidine HCl) 4 Mg Tablet, 1 TAB PO QHS PRN for SPASMS, (Re ported) Allergies Coded Allergies: TAPE (Verified Allergy, Intermediate, [facility]- [facility], 08/03/20) WOOL (FABRIC) (Unverified Allergy, Unknown, 08/03/20) WARREN NAIDU DO November 20, 2020 22:19
--- NOTE | 2020-11-23 09:42 | ECHO ---
ECHOCARDIOGRAM DATE OF PROCEDURE: 11/19/2020 Age: 55 Gender: Female Height: 66 inches Weight: 240 pounds Body surface area: 2.16 m2 PATIENT LOCATION: Inpatient PCU, Room 3219. REFERRING PHYSICIAN: CHE Dixon INDICATION: Murmur. MEASUREMENTS: 2D Measurements: RV 4.2 cm LV 5.0 cm Septum 1.3 cm Posterior wall 1.3 cm Aortic Root 3.2 cm LA 4.7 cm LVEF 75% Doppler Measurements: AV 2.14 m/s LVOT 1.23 m/s LVOT diameter 2.2 cm Peak AV systolic gradient 12 mmHg Dimensionless index 0.62 MV-E 116, A 110, E/A ratio 1.1 Early mitral deceleration time 187 msec E prime medial 7, A prime medial 9, E prime lateral 7.8 Average E/E prime ratio 14.5/PCWP - 20 mmHg PV 1.1 m/s RVSP 43 mmHg IVC 1.8 cm COMMENTS: Normal sinus rhythm without intraventricular conduction disturbance. Technically challenging study in light of the patient's body habitus, but diagnostically useful information was still obtained. M-mode and two-dimensional echocardiography was performed with pulse, continuous wave, color flow, and tissue Doppler studies. Mild symmetrical left ventricular hypertrophy with hyperkinetic wall motion. Gerw-qm-xhivmjqgrz dilated left atrium with grade 2 LV diastolic dysfunction and elevated estimated mean left atrial pressure. Mildly dilated right heart chambers with normal wall motion and Doppler evidence of moderate pulmonary hypertension. Normal IVC size and collapse against an elevated central venous pressure at this time. Normal aortic root and ascending aortic diameters. Moderate aortic valvular sclerosis without stenosis and only trace insufficiency. Moderate mitral annular calcification without inflow tract obstruction and only mild insufficiency. Normal appearing tricuspid valve with very mild insufficiency. No apparent intracardiac mass or pericardial effusion. MTDD
== END 2020-11-20 14:19 | disposition home health service (06) ==
LOC: M ED 15:17 → M ED INP 19:36 → ENRESERV 22:21 → M PCU 22:57
PROVIDERS: ADMIT Family Medicine; ATTEND Internal Medicine
PROC: 0W9G3ZZ Drainage of Peritoneal Cavity, Percutaneous Approach (ICD-10-PCS; principal; 2020-11-19 15:30)
DX: K74.60 Unspecified cirrhosis of liver (principal); R18.8 Other ascites; K76.6 Portal hypertension; E11.40 Type 2 diabetes mellitus with diabetic neuropathy, unspecified; E11.65 Type 2 diabetes mellitus with hyperglycemia; E78.5 Hyperlipidemia, unspecified; I10 Essential (primary) hypertension; G47.33 Obstructive sleep apnea (adult) (pediatric); F41.9 Anxiety disorder, unspecified; R20.0 Anesthesia of skin; R01.1 Cardiac murmur, unspecified; F32.9 Major depressive disorder, single episode, unspecified; K21.9 Gastro-esophageal reflux disease without esophagitis; Z79.4 Long term (current) use of insulin; Z79.899 Other long term (current) drug therapy; Z91.048 Other nonmedicinal substance allergy status; G43.909 Migraine, unspecified, not intractable, without status migrainosus; Z20.822 Contact with and (suspected) exposure to COVID-19

== ENCOUNTER 2020-12-02 17:03 | Emergency (ER) | payer OTHER ==
[~2020-12-02] VITALS: Ht 167.6 cm; Wt 101.4 kg
[~2020-12-02 17:03] MED LIST changes: +ALDA25TA2 PO; +BASA100I SC; +FURO20TA2 PO
[2020-12-02 17:04] VITALS: BP 141/65
[2020-12-02 19:07] LABS: ALT/SGPT 30 U/L (12-78); BILIRUBIN,DIRECT 0.3 MG/DL (0.0-0.2); BILIRUBIN,TOTAL 0.8 MG/DL (0.2-1.0); BLOOD UREA NITROGEN 21 MG/DL (7-18); CALCIUM LEVEL 8.5 MG/DL (8.5-10.1); CARBON DIOXIDE LEVEL 20 MEQ/L (21-32); CHLORIDE LEVEL 106 MEQ/L (98-107); CREATININE FOR GFR 0.82 MG/DL (0.55-1.30); GLOMERULAR FILTRATION RATE > 60.0 (>51); GLUCOSE, FASTING 224 MG/DL (70-100); SODIUM LEVEL 138 MEQ/L (136-145); TOTAL PROTEIN 6.3 GM/DL (6.4-8.2)
--- NOTE | 2020-12-02 19:10 | REPVR ---
PROCEDURE INFORMATION: Exam: US Duplex Lower Extremity Veins, Bilateral Exam date and time: 12/02/2020 6:10 PM Age: 55 years old Clinical indication: Pain; Leg, upper and leg, lower; Bilateral; Additional info: Swelling TECHNIQUE: Imaging protocol: Real-time duplex ultrasound of the extremities with 2-D morse scale, color Doppler flow and spectral waveform analysis with image documentation. Complete exam focused on the bilateral lower extremity veins. COMPARISON: No relevant prior studies available. FINDINGS: Right deep veins: Unremarkable. The common femoral, femoral, proximal profunda femoral and popliteal veins are patent without thrombus. Normal Doppler waveforms. Normal compressibility and/or augmentation response. Duplication of the femoral veins. Right superficial veins: Saphenofemoral junction is patent without thrombus. Left deep veins: Unremarkable. The common femoral, femoral, proximal profunda femoral and popliteal veins are patent without thrombus. Normal Doppler waveforms. Normal compressibility and/or augmentation response. Duplication of the femoral veins. The Left superficial veins: Saphenofemoral junction is patent without thrombus. Soft tissues: Swelling IMPRESSION: No evidence of deep vein thrombosis. Electronically signed by: Bimal Zepeda On 12/02/2020 19:10:06 PM
[2020-12-02 19:22] LABS: BASO % 0.5 % (0.0-1.0); EOS # 0.1 10^3/uL (0.0-0.5); EOS % 1.8 % (0.0-3.0); HEMATOCRIT 33.9 % (36.0-47.0); HEMOGLOBIN 10.9 g/dl (12.0-15.5); LYMPH % 21.6 % (24.0-44.0); MEAN CORPUSCULAR HGB CONC 32.2 g/dl (32.0-36.5); MEAN CORPUSCULAR VOLUME 84.1 fl (80.0-96.0); MONO # 0.4 10^3/uL (0.0-0.8); MONO % 8.9 % (2.0-8.0); NEUTROPHILS # 2.9 10^3/uL (1.5-8.5); NEUTROPHILS % 66.7 % (36.0-66.0); PLATELET COUNT, AUTOMATED 110 10^3/uL (150-450); RED BLOOD COUNT 4.03 10^6/uL (4.00-5.40); WHITE BLOOD COUNT 4.4 10^3/uL (4.0-10.0)
== END 2020-12-02 20:45 | disposition home or self-care (01) ==
LOC: M ED 17:03
DX: R60.0 Localized edema (principal); E11.40 Type 2 diabetes mellitus with diabetic neuropathy, unspecified; I10 Essential (primary) hypertension; E78.5 Hyperlipidemia, unspecified; G47.33 Obstructive sleep apnea (adult) (pediatric); K74.69 Other cirrhosis of liver; K76.6 Portal hypertension

== ENCOUNTER 2020-12-06 12:50 | Emergency (ER) | payer OTHER ==
[~2020-12-06] VITALS: Ht 167.6 cm; Wt 114.4 kg
[2020-12-06] MEDS ORDERED: KETOROLAC 30 MG/ML 1ML VIAL IV ONE (15:30)
[2020-12-06] MEDS ORDERED: NS 1,000 ML IV SCH (15:30)
--- NOTE | 2020-12-06 15:56 | REP ---
INDICATION: ABDOMINAL PAIN. COMPARISON: Portable examination 11/19/2019 TECHNIQUE: PA and lateral FINDINGS: The superior mediastinal structures are midline. The cardiac silhouette is unremarkable in size, shape, and position. The diaphragmatic surfaces of the lungs are regular, and the costophrenic angles are clear. Curvilinear densities seen right lower lobe. Minimal platelike curvilinear densities left lower lobe.. The imaged osseous structures are intact. IMPRESSION: Likely bilateral plate like subsegmental atelectasis both lung bases and representing a change from the prior exam. <Electronically signed by Vinicius Smith > 12/06/20 0548
[2020-12-06 16:16] LABS: BASO % 0.4 % (0.0-1.0); EOS # 0.1 10^3/uL (0.0-0.5); HEMATOCRIT 36.4 % (36.0-47.0); HEMOGLOBIN 11.5 g/dl (12.0-15.5); LYMPH # 0.9 10^3/uL (1.5-5.0); MEAN CORPUSCULAR HEMOGLOBIN 27.3 pg (27.0-33.0); MEAN CORPUSCULAR HGB CONC 31.6 g/dl (32.0-36.5); MEAN CORPUSCULAR VOLUME 86.5 fl (80.0-96.0); MONO # 0.4 10^3/uL (0.0-0.8); MONO % 8.3 % (2.0-8.0); NEUTROPHILS # 3.6 10^3/uL (1.5-8.5); NEUTROPHILS % 70.9 % (36.0-66.0); PLATELET COUNT, AUTOMATED 108 10^3/uL (150-450); RED BLOOD COUNT 4.21 10^6/uL (4.00-5.40); WHITE BLOOD COUNT 5.1 10^3/uL (4.0-10.0)
--- NOTE | 2020-12-06 16:25 | REP ---
INDICATION: ABDOMINAL PAIN, CIRRHOSIS, EVAL FOR ASCITES. COMPARISON: None TECHNIQUE: Four quadrant ultrasonography to assess for ascites FINDINGS: There is fluid seen in all 4 quadrants. IMPRESSION: There is at least moderate ascites. Accredited by the [employer] in General Ultrasound. <Electronically signed by Vinicius Smith > 12/06/20 9100
[2020-12-06 16:49] LABS: ALBUMIN 2.1 GM/DL (3.2-5.2); BILIRUBIN,DIRECT 0.4 MG/DL (0.0-0.2); BILIRUBIN,TOTAL 0.8 MG/DL (0.2-1.0); TOTAL PROTEIN 6.6 GM/DL (6.4-8.2)
[2020-12-06 18:00] LABS: BLOOD UREA NITROGEN 21 MG/DL (7-18); CALCIUM LEVEL 9.1 MG/DL (8.5-10.1); CARBON DIOXIDE LEVEL 26 MEQ/L (21-32); CHLORIDE LEVEL 105 MEQ/L (98-107); CREATININE FOR GFR 0.78 MG/DL (0.55-1.30); GLOMERULAR FILTRATION RATE > 60.0 (>51); GLUCOSE, FASTING 164 MG/DL (70-100); POTASSIUM SERUM 3.7 MEQ/L (3.5-5.1); SODIUM LEVEL 138 MEQ/L (136-145)
[2020-12-06 18:30] VITALS: BP 154/69
--- NOTE | 2020-12-07 13:00 | ED PDOC ---
Post-Departure Follow-Up abdominal us faxed to dr hope and dr matias for fu Samuel Blum MD Dec 07, 2020 13:00
== END 2020-12-06 18:56 | disposition home or self-care (01) ==
LOC: M ED 12:50
DX: K74.69 Other cirrhosis of liver (principal); R18.8 Other ascites; J98.11 Atelectasis; D64.9 Anemia, unspecified; D69.6 Thrombocytopenia, unspecified; R10.9 Unspecified abdominal pain; M54.5 Low back pain; E11.9 Type 2 diabetes mellitus without complications; I10 Essential (primary) hypertension; K21.9 Gastro-esophageal reflux disease without esophagitis; R01.1 Cardiac murmur, unspecified; Z79.899 Other long term (current) drug therapy
CPT/HCPCS: 71046; 76705; 80048; 80076; 83690; 85025; 96361; 96374; 99284; J1885

== ENCOUNTER → 2020-12-15 | Outpatient (CLI) | payer OTHER ==
[~2020-12-15] MED LIST changes: +LIDOCAINE 1% MDV 20ML VIAL As Ordered ONE; +OMEP40CA4 PO; -OMEP40CA97 PO
[2020-12-15 14:21] VITALS: BP 156/74
[2020-12-15 15:06] LABS: APPEARANCE, BODY FLUID HAZY (CLEAR); ASCITES FL COLOR PALE YELLOW (COLORLESS); SOURCE, BODY FLUID ASCITES
[2020-12-15 15:16] LABS: SOURCE, BODY FLUID ALBUMIN ASCITES; SOURCE, BODY FLUID TOT PROTEIN ASCITES
--- NOTE | 2020-12-15 16:29 | REP ---
INDICATION: CIRRHOSIS ASCITES. COMPARISON: None. TECHNIQUE: The procedure was performed under the direct supervision of Dr. Hall. The risks and benefits of the procedure were explained to the patient and informed consent was obtained. The largest pocket of fluid was localized in the right flank using ultrasound guidance. The skin was prepped and draped in a sterile fashion. 1% lidocaine was used as a local anesthetic. An 8-Citizen Of [place] multi side-hole catheter was inserted using trocar technique.9800 cc of yellow fluid was withdrawn with a sample sent to the lab for analysis. The patient tolerated the procedure well and there were no immediate complications. After the appropriate amount of monitored convalescence, the patient was discharged from the department. FINDINGS: None IMPRESSION: Ultrasound-guided paracentesis [id number] cc of yellow fluid with a sample sent to the lab for analysis. <Electronically signed by Reece Araiza > 12/15/20 1535 <Electronically signed by Cirilo Hall > 12/15/20 [id number]
== END ==
LOC: M IRPRO 13:15
PROVIDERS: ATTEND Internal Medicine Gastroenterology
DX: K74.60 Unspecified cirrhosis of liver (principal); R18.8 Other ascites

== ENCOUNTER → 2020-12-15 | Outpatient (CLI) | payer OTHER ==
[~2020-12-15] MED LIST changes: -LIDOCAINE 1% MDV 20ML VIAL As Ordered ONE
== END ==
LOC: M LABSMTC 12:28
PROVIDERS: ATTEND Anesthesiology
DX: Z01.818 Encounter for other preprocedural examination (principal); Z11.52 Encounter for screening for COVID-19

== ENCOUNTER 2020-12-20 07:50 | Day surgery (SDC) | payer OTHER ==
[~2020-12-20] VITALS: Ht 167.6 cm; Wt 110.1 kg
[~2020-12-20 07:50] MED LIST changes: +NS 1,000 ML IV ONE
[2020-12-20] MEDS ORDERED: fentaNYL 100 MCG/2 ML INJECTION (J3010) As Ordered ONE (08:26)
[2020-12-20] MEDS ORDERED: propofoL 200 MG/20 ML VIAL As Ordered ONE (08:26)
[2020-12-20] MEDS ORDERED: LIDOCAINE 2% 100MG/5ML SDV (FOR ANES.) As Ordered ONE (08:26)
--- NOTE | 2020-12-20 08:58 | ROOR ---
Patient Name: Felicita Esposito Procedure Date: 12/20/2020 8:38 AM Date of : 1965 Age: 55 Room: [facility] Gender: Female Note Status: Finalized Procedure: Upper GI endoscopy Indications: Iron deficiency anemia, Cirrhosis rule out esophageal varices Providers: Jack Landaverde MD Referring MD: Rohan Meraz Do Requesting Provider: Medicines: Monitored Anesthesia Care Complications: No immediate complications. Procedure: Pre-Anesthesia Assessment: - The heart rate, respiratory rate, oxygen saturations, blood pressure, adequacy of pulmonary ventilation, and response to care were monitored throughout the procedure. The Endoscope was introduced through the mouth, and advanced to the second part of duodenum. The upper GI endoscopy was accomplished without difficulty. The patient tolerated the procedure well. Findings: Grade II varices were found in the lower third of the esophagus. They were medium in size. Three bands were successfully placed with complete eradication, resulting in deflation of varices. There was no bleeding during the procedure. Mild portal hypertensive gastropathy was found in the gastric body. The exam was otherwise without abnormality. Impression: - Grade II esophageal varices. Completely eradicated. Banded. - Portal hypertensive gastropathy. - The examination was otherwise normal. - No specimens collected. Recommendation: - Repeat upper endoscopy in 1 month for retreatment. Procedure Code(s): --- Professional --- 02501, Esophagogastroduodenoscopy, flexible, transoral; with band ligation of esophageal/gastric varices Diagnosis Code(s): --- Professional --- K74.60, Unspecified cirrhosis of liver D50.9, Iron deficiency anemia, unspecified K31.89, Other diseases of stomach and duodenum K76.6, Portal hypertension I85.10, Secondary esophageal varices without bleeding CPT copyright 2019 [employer]. All rights reserved. The codes documented in this report are preliminary and upon telegraph repeater mechanic review may be revised to meet current compliance requirements. Jack Landaverde MD Jack Landaverde MD 12/20/2020 8:58:32 AM Electronically signed by Jack Landaverde MD Number of Addenda: 0 Note Initiated On: 12/20/2020 8:38 AM Estimated Blood Loss: Estimated blood loss: none.
--- NOTE | 2020-12-20 09:12 | ROOR ---
Patient Name: Felicita Esposito Procedure Date: 12/20/2020 8:39 AM Date of : 1965 Age: 55 Room: [facility] Gender: Female Note Status: Finalized Procedure: Colonoscopy Indications: Iron deficiency anemia Providers: Jcak Landaverde MD Referring MD: Rohan Meraz Do Requesting Provider: Medicines: Monitored Anesthesia Care Complications: No immediate complications. Procedure: Pre-Anesthesia Assessment: - The heart rate, respiratory rate, oxygen saturations, blood pressure, adequacy of pulmonary ventilation, and response to care were monitored throughout the procedure. The Colonoscope was introduced through the anus and advanced to the terminal ileum, with identification of the appendiceal orifice and IC valve. The colonoscopy was performed with difficulty due to poor bowel prep with stool present. The patient tolerated the procedure well. The quality of the bowel preparation was inadequate. Findings: The perianal and digital rectal examinations were normal. The colon is grossly normal without large tumors or obstructing lesions. Impression: - Preparation of the colon was inadequate. - The colon is grossly normal without large tumors or obstructing lesions. - No specimens collected. Recommendation: - Repeat colonoscopy at the next available appointment because the bowel preparation was poor. - My office will call you within the next few days to reschedule a colonoscopy with alternate colon preparation. Procedure Code(s): --- Professional --- 64337, Colonoscopy, flexible; diagnostic, including collection of specimen(s) by brushing or washing, when performed (separate procedure) Diagnosis Code(s): --- Professional --- D50.9, Iron deficiency anemia, unspecified CPT copyright 2019 [employer]. All rights reserved. The codes documented in this report are preliminary and upon sugar cane planter machine operator review may be revised to meet current compliance requirements. Jack Landaverde MD Jack Landaverde MD 12/20/2020 9:11:47 AM Electronically signed by Jack Landaverde MD Number of Addenda: 0 Note Initiated On: 12/20/2020 8:39 AM Estimated Blood Loss: Estimated blood loss: none.
[2020-12-20 09:51] VITALS: BP 131/72
== END 2020-12-20 09:52 | disposition home or self-care (01) ==
LOC: M OPP 07:50
PROVIDERS: ATTEND Internal Medicine Gastroenterology
DX: D50.9 Iron deficiency anemia, unspecified (principal); K74.60 Unspecified cirrhosis of liver; K31.89 Other diseases of stomach and duodenum; K76.6 Portal hypertension; I85.10 Secondary esophageal varices without bleeding; Z79.4 Long term (current) use of insulin; Z79.82 Long term (current) use of aspirin; Z79.899 Other long term (current) drug therapy; Z91.048 Other nonmedicinal substance allergy status
CPT/HCPCS: 43244; 45378; J3010

== ENCOUNTER 2020-12-24 16:37 | Emergency (ER) | payer OTHER ==
[~2020-12-24] VITALS: Ht 167.6 cm; Wt 115.5 kg
[~2020-12-24 16:37] MED LIST changes: -NS 1,000 ML IV ONE
[2020-12-24 18:05] LABS: BASO % 0.7 % (0.0-1.0); EOS # 0.1 10^3/uL (0.0-0.5); EOS % 1.6 % (0.0-3.0); LYMPH # 0.8 10^3/uL (1.5-5.0); LYMPH % 17.5 % (24.0-44.0); MEAN CORPUSCULAR HEMOGLOBIN 27.6 pg (27.0-33.0); MEAN CORPUSCULAR HGB CONC 31.4 g/dl (32.0-36.5); MEAN CORPUSCULAR VOLUME 87.9 fl (80.0-96.0); MONO # 0.4 10^3/uL (0.0-0.8); MONO % 8.4 % (2.0-8.0); NEUTROPHILS # 3.2 10^3/uL (1.5-8.5); NEUTROPHILS % 71.4 % (36.0-66.0); PLATELET COUNT, AUTOMATED 124 10^3/uL (150-450); RED BLOOD COUNT 3.98 10^6/uL (4.00-5.40); WHITE BLOOD COUNT 4.5 10^3/uL (4.0-10.0)
--- NOTE | 2020-12-24 18:06 | REP ---
INDICATION: DYSPNEA/COUGH COMPARISON: 12/06/2020 TECHNIQUE: Portable AP view of the chest FINDINGS: The mediastinum and cardiac silhouette are stable and within normal limits for portable technique. The lung clancy demonstrate linear scarring in the right mid/lower lung zone and subtle opacity at the left base with blunting to the costophrenic angle similar to prior examination raising the possibility of chronic change versus small pleural effusion and atelectasis. IMPRESSION: Chronic changes. Cannot exclude small left pleural effusion and trace left basilar atelectasis. <Electronically signed by Duane Alberto > 12/24/20 1813
[2020-12-24 18:38] LABS: ALBUMIN 2.1 GM/DL (3.2-5.2); ALT/SGPT 31 U/L (12-78); BILIRUBIN,DIRECT 0.4 MG/DL (0.0-0.2); BILIRUBIN,TOTAL 0.7 MG/DL (0.2-1.0); BLOOD UREA NITROGEN 17 MG/DL (7-18); CALCIUM LEVEL 8.6 MG/DL (8.5-10.1); CARBON DIOXIDE LEVEL 23 MEQ/L (21-32); CHLORIDE LEVEL 98 MEQ/L (98-107); CK-MB VALUE MASS 3.2 NG/ML (<3.6); CPK CREATINE PHOSPHOKINASE 106 U/L (26-192); CREATININE FOR GFR 1.01 MG/DL (0.55-1.30); GLOMERULAR FILTRATION RATE > 60.0 (>51); GLUCOSE, FASTING 553 MG/DL (70-100); MB/CK RELATIVE INDEX 3.02 (< OR =4); NT-PRO BNP 362 PG/ML (<125); POTASSIUM SERUM 3.7 MEQ/L (3.5-5.1); SODIUM LEVEL 132 MEQ/L (136-145); THYROXINE (T4) 10.5 UG/DL (4.5-12.0); TOTAL PROTEIN 6.3 GM/DL (6.4-8.2); TROPONIN I < 0.02 NG/ML (< 0.10)
[2020-12-24] MEDS ORDERED: FUROSEMIDE 20MG/2ML VIAL (J1940) IV ONE (20:30)
[2020-12-24] MEDS ORDERED: HumaLOG INSULIN (NovoLOG) PER UNIT SC STA ×2 (20:36→20:42)
--- NOTE | 2020-12-24 20:38 | ECGEPIP ---
[facility] - ED Test Date: 2020-12-24 Pat Name: RUSSELL HUGHES Department: Room: - Gender: Female Rn Radiology: KRISTA : 1965 Requested By: Howard Alvarez Order Number: [id number] Reading MD: Howard Guy Measurements Intervals [place] Rate: 106 P: 53 [place]: 122 QRS: 9 QRSD: 88 T: 35 QT: 358 QTc: 475 Interpretive Statements Sinus tachycardia Nonspecific T wave abnormality BASELINE ARTIFACT AFFECTS INTERPRETATION Electronically Signed on 12-24-2020 20:37:46 EDT by Howard Guy
[2020-12-24 21:10] VITALS: BP 142/65
--- NOTE | 2020-12-25 06:37 | ED PDOC ---
Post-Departure Follow-Up dr jon faxed formal report of cxr for fu Samuel Blum MD Dec 25, 2020 06:37
== END 2020-12-24 21:30 | disposition home or self-care (01) ==
LOC: M ED 16:37
DX: R18.8 Other ascites (principal); K74.60 Unspecified cirrhosis of liver; J90 Pleural effusion, not elsewhere classified; J98.11 Atelectasis; R00.0 Tachycardia, unspecified; E11.9 Type 2 diabetes mellitus without complications; I10 Essential (primary) hypertension; K21.9 Gastro-esophageal reflux disease without esophagitis; G47.33 Obstructive sleep apnea (adult) (pediatric); Z79.899 Other long term (current) drug therapy
CPT/HCPCS: 36415; 71045; 80048; 80076; 82550; 82553; 83880; 84436; 84443; 85025; 93005; 93041; 94760; 99284; J1940

== ENCOUNTER → 2020-12-29 | Outpatient (CLI) | payer OTHER ==
[2020-12-29 12:05] VITALS: BP 152/74
--- NOTE | 2020-12-29 16:30 | REP ---
INDICATION: ASCITES. COMPARISON: None. TECHNIQUE: The procedure was performed under the direct supervision of Dr. Hall. The risks and benefits of the procedure were explained to the patient and informed consent was obtained. The largest pocket of fluid was localized in the right lower quadrant using ultrasound guidance. The skin was prepped and draped in a sterile fashion. 1% lidocaine was used as a local anesthetic. An 8-Guatemalan multi side-hole catheter was inserted using trocar technique.9600 cc of yellow fluid was withdrawn and discarded. Estimated blood loss: Less than 1 cc. The patient tolerated the procedure well and there were no immediate complications. After the appropriate amount of monitored convalescence, the patient was discharged from the department. FINDINGS: None IMPRESSION: Ultrasound-guided paracentesis [id number] cc of yellow fluid. <Electronically signed by Reece Araiza > 12/29/20 1546 <Electronically signed by Cirilo Hall > 12/29/20 4350
== END ==
LOC: M IRPRO 10:56
PROVIDERS: ATTEND Internal Medicine Gastroenterology
DX: R18.8 Other ascites (principal); K74.60 Unspecified cirrhosis of liver

== ENCOUNTER → 2021-01-05 | Outpatient (CLI) | payer OTHER ==
[~2021-01-05] MED LIST changes: +LASI40TA9 PO
[2021-01-05 14:05] VITALS: BP 144/80
--- NOTE | 2021-01-05 16:27 | REP ---
INDICATION: DYSPNEA. COMPARISON: None. TECHNIQUE: The procedure was performed under the direct supervision of Dr. Zelaya. The risks and benefits of the procedure were explained to the patient and informed consent was obtained. The largest pocket of fluid was localized in the right lower quadrant using ultrasound guidance. The skin was prepped and draped in a sterile fashion. 5 mL of 1% lidocaine was used as a local anesthetic. An 8-Georgian multi side-hole catheter was inserted using trocar technique.5500 cc of yellow fluid was withdrawn and discarded. Estimated blood loss: Less than 1 cc The patient tolerated the procedure well and there were no immediate complications. After the appropriate amount of monitored convalescence, the patient was discharged from the department. FINDINGS: None IMPRESSION: Ultrasound-guided paracentesis [id number] cc of yellow fluid. <Electronically signed by Reece Araiza > 01/05/21 1625 <Electronically signed by Ish Zelaya > 01/05/21 [id number]
== END ==
LOC: M IRPRO 12:59
PROVIDERS: ATTEND Internal Medicine Gastroenterology
DX: R18.8 Other ascites (principal); K74.60 Unspecified cirrhosis of liver

== ENCOUNTER → 2021-01-12 | Outpatient (CLI) | payer OTHER ==
[~2021-01-12] MED LIST changes: +LIDOCAINE 1% MDV 20ML VIAL As Ordered ONE
[2021-01-12 11:57] LABS: PLATELET COUNT, AUTOMATED 111 10^3/uL (150-450)
[2021-01-12 12:08] LABS: INR 1.08; PROTHROMBIN TIME 14.2 SECONDS (12.5-14.3)
[2021-01-12 12:50] VITALS: BP 140/79
--- NOTE | 2021-01-12 16:50 | REP ---
INDICATION: ASCITES. COMPARISON: None. TECHNIQUE: The procedure was performed under the direct supervision of Dr. Hall. The risks and benefits of the procedure were explained to the patient and informed consent was obtained. The largest pocket of fluid was localized in the right lower quadrant using ultrasound guidance. The skin was prepped and draped in a sterile fashion. 4 mL of 1% lidocaine was used as a local anesthetic. An 8-Nepali multi side-hole catheter was inserted using trocar technique.7600 cc of yellow fluid was withdrawn and discarded. Estimated blood loss: Less than 1 cc The patient tolerated the procedure well and there were no immediate complications. After the appropriate amount of monitored convalescence, the patient was discharged from the department. FINDINGS: None IMPRESSION: Ultrasound-guided paracentesis [id number] cc of yellow fluid. <Electronically signed by Reece Araiza > 01/12/21 1619 <Electronically signed by Cirilo Hall > 01/12/21 1646
== END ==
LOC: M IRPRO 11:15
PROVIDERS: ATTEND Internal Medicine Gastroenterology
DX: K74.60 Unspecified cirrhosis of liver (principal); R18.8 Other ascites

== ENCOUNTER → 2021-01-17 | Outpatient (REF) | payer OTHER ==
[~2021-01-17] MED LIST changes: -LIDOCAINE 1% MDV 20ML VIAL As Ordered ONE; +TRAM50TA2 PO
== END ==
LOC: M SFHCPLAZ 14:07
PROVIDERS: ATTEND Family Medicine
DX: Z53.9 Procedure and treatment not carried out, unspecified reason (principal)

== ENCOUNTER 2021-01-19 16:25 | Emergency (ER) | payer OTHER ==
[~2021-01-19] VITALS: Ht 167.6 cm; Wt 97.1 kg
[~2021-01-19 16:25] MED LIST changes: -TRAM50TA2 PO
[2021-01-19] MEDS ORDERED: TRAM50TA2 PO (18:18)
[2021-01-19] MEDS ORDERED: HumaLOG INSULIN (NovoLOG) PER UNIT SC ONE (19:20)
[2021-01-19 20:45] VITALS: BP 144/66
== END 2021-01-19 20:52 | disposition left against medical advice (07) ==
LOC: M ED 16:25
DX: E11.65 Type 2 diabetes mellitus with hyperglycemia (principal); Z53.9 Procedure and treatment not carried out, unspecified reason; I10 Essential (primary) hypertension; K74.60 Unspecified cirrhosis of liver; F17.200 Nicotine dependence, unspecified, uncomplicated; Z91.048 Other nonmedicinal substance allergy status; Z79.4 Long term (current) use of insulin; Z79.899 Other long term (current) drug therapy

== ENCOUNTER → 2021-01-19 | Outpatient (CLI) | payer OTHER ==
[2021-01-19 15:20] VITALS: BP 135/74
--- NOTE | 2021-01-20 07:53 | REP ---
INDICATION: ASCITES/ LABS FIRST. COMPARISON: None. TECHNIQUE: The procedure was performed under the direct supervision of Dr. Zelaya. The risks and benefits of the procedure were explained to the patient and informed consent was obtained. The largest pocket of fluid was localized in the left flank using ultrasound guidance. The skin was prepped and draped in a sterile fashion. 5 mL of 1% lidocaine was used as a local anesthetic. An 8-Dominican multi side-hole catheter was inserted using trocar technique.7750 cc of yellow fluid was withdrawn and discarded. Estimated blood loss: Less than 1 mL The patient tolerated the procedure well and there were no immediate complications. After the appropriate amount of monitored convalescence, the patient was discharged from the department. FINDINGS: None IMPRESSION: Ultrasound-guided paracentesis [id number] mL of yellow fluid. <Electronically signed by Reece Araiza > 01/19/21 2984 <Electronically signed by Ish Zelaya > 01/20/21 7348
== END ==
LOC: M IRPRO 13:21
PROVIDERS: ATTEND Internal Medicine Gastroenterology
DX: R18.8 Other ascites (principal); K74.60 Unspecified cirrhosis of liver; R19.8 Other specified symptoms and signs involving the digestive system and abdomen

== ENCOUNTER → 2021-01-19 | Outpatient (CLI) | payer OTHER ==
[2021-01-19 14:56] LABS: BASO % 0.7 % (0.0-1.0); EOS # 0.1 10^3/uL (0.0-0.5); HEMATOCRIT 35.8 % (36.0-47.0); HEMOGLOBIN 11.6 g/dl (12.0-15.5); LYMPH # 0.9 10^3/uL (1.5-5.0); LYMPH % 18.7 % (24.0-44.0); MEAN CORPUSCULAR HEMOGLOBIN 28.4 pg (27.0-33.0); MEAN CORPUSCULAR HGB CONC 32.4 g/dl (32.0-36.5); MEAN CORPUSCULAR VOLUME 87.7 fl (80.0-96.0); MONO # 0.4 10^3/uL (0.0-0.8); MONO % 9.2 % (2.0-8.0); NEUTROPHILS # 3.1 10^3/uL (1.5-8.5); NEUTROPHILS % 68.3 % (36.0-66.0); PLATELET COUNT, AUTOMATED 113 10^3/uL (150-450); RED BLOOD COUNT 4.08 10^6/uL (4.00-5.40); WHITE BLOOD COUNT 4.6 10^3/uL (4.0-10.0)
[2021-01-19 15:07] LABS: INR 1.03; PROTHROMBIN TIME 13.7 SECONDS (12.5-14.3)
[2021-01-19 15:36] LABS: ALBUMIN 2.4 GM/DL (3.2-5.2); BILIRUBIN,TOTAL 0.7 MG/DL (0.2-1.0); CALCIUM LEVEL 9.5 MG/DL (8.5-10.1); CREATININE FOR GFR 1.09 MG/DL (0.55-1.30); GLOMERULAR FILTRATION RATE 55.7 (>51); POTASSIUM SERUM 3.6 MEQ/L (3.5-5.1); TOTAL PROTEIN 7.2 GM/DL (6.4-8.2)
== END ==
LOC: M LAB 13:29
PROVIDERS: ATTEND Student in an Organized Health Care Education/Training Program
DX: K74.60 Unspecified cirrhosis of liver (principal)

== ENCOUNTER → 2021-01-26 | Outpatient (CLI) | payer OTHER ==
[~2021-01-26] MED LIST changes: +SPIR50TA4 PO; +TRAM50TA2 PO
[2021-01-26 14:20] VITALS: BP 136/77
--- NOTE | 2021-01-26 17:17 | REP ---
INDICATION: ASCITES. COMPARISON: None. TECHNIQUE: The procedure was performed under the direct supervision of Dr. Hall. The risks and benefits of the procedure were explained to the patient and informed consent was obtained. The largest pocket of fluid was localized in the right flank using ultrasound guidance. The skin was prepped and draped in a sterile fashion. 3 mL of 1% lidocaine was used as a local anesthetic. An 8-Nepali multi side-hole catheter was inserted using trocar technique.6400 mL of yellow fluid was withdrawn and discarded. Estimated blood loss: Less than 1 mL The patient tolerated the procedure well and there were no immediate complications. After the appropriate amount of monitored convalescence, the patient was discharged from the department. FINDINGS: None IMPRESSION: Ultrasound-guided paracentesis [id number] mL of yellow fluid. <Electronically signed by Reece Araiza > 01/26/21 [id number] <Electronically signed by Cirilo Hall > 01/26/21 [id number]
== END ==
LOC: M IRPRO 13:05
PROVIDERS: ATTEND Internal Medicine
DX: R18.8 Other ascites (principal); K74.60 Unspecified cirrhosis of liver; R19.8 Other specified symptoms and signs involving the digestive system and abdomen

== ENCOUNTER 2021-01-27 08:57 | Observation (INO) | payer OTHER ==
[~2021-01-27] VITALS: Ht 167.6 cm; Wt 94.5 kg
[~2021-01-27 08:57] MED LIST changes: +DOK1CAP4 PO; -DOK1CAP7 PO; -SPIR50TA4 PO
[2021-01-27] MEDS ORDERED: POLYETHYLENE GLYCOL (MIRALAX) 238GM BOTTLE PO ONE ×2 (13:00→20:00)
[2021-01-27 13:13] LABS: BASO # 0.1 10^3/uL (0.0-0.2); EOS # 0.1 10^3/uL (0.0-0.5); EOS % 1.9 % (0.0-3.0); HEMATOCRIT 35.3 % (36.0-47.0); HEMOGLOBIN 11.6 g/dl (12.0-15.5); LYMPH # 0.9 10^3/uL (1.5-5.0); LYMPH % 17.8 % (24.0-44.0); MEAN CORPUSCULAR HEMOGLOBIN 28.6 pg (27.0-33.0); MEAN CORPUSCULAR HGB CONC 32.9 g/dl (32.0-36.5); MEAN CORPUSCULAR VOLUME 86.9 fl (80.0-96.0); MONO # 0.4 10^3/uL (0.0-0.8); NEUTROPHILS # 3.7 10^3/uL (1.5-8.5); NEUTROPHILS % 70.7 % (36.0-66.0); PLATELET COUNT, AUTOMATED 106 10^3/uL (150-450); RED BLOOD COUNT 4.06 10^6/uL (4.00-5.40); WHITE BLOOD COUNT 5.2 10^3/uL (4.0-10.0)
[2021-01-27 13:15] VITALS: BP 145/75
[2021-01-27 13:25] LABS: INR 1.02; PROTHROMBIN TIME 13.8 SECONDS (12.7-14.5)
[2021-01-27 13:27] LABS: PARTIAL THROMBOPLASTIN TIME 26.8 SECONDS (25.9-37.0)
--- NOTE | 2021-01-27 13:33 | HPEPDOC ---
[facility] Medical History & Physical Date of Admission Jan 27, 2021 Date of Service: Jan 27, 2021 History and Physical CHIEF COMPLAINT: " Sent by Dr. Landaverde" HISTORY OF PRESENT ILLNESS: 55-year-old female admitted from gastroenterology office for a bowel prep and colonoscopy on 01/28. 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 She reports she was at her regular follow-up with her blueprint assembler wanted her to come to the hospital for a bowel prep and colonoscopy on 01/28. Presently she has no complaints and denies headaches, chest pain, shortness of breath, abdominal pain, nausea, vomiting, problems with urination and bowel movements. She denies hematochezia and melena. She has not had any episodes of nausea and vomiting. She had a paracentesis done yesterday as an outpatient. Her last colonoscopy was done on 11/2020 but there was an inadequate bowel prep, therefore 1 is being repeated on 01/28. PAST MEDICAL HISTORY: As mentioned above. PAST SURGICAL HISTORY: 1. Tubal ligation 2. Hysterectomy 3. Cystoscopy SOCIAL HISTORY: Marital status: and lives with her and daughter Tobacco use: Denies ETOH: Denies Illicit drug use: Denies FAMILY HISTORY: Mother and brother had emphysematous disease, but endorses they were heavy smokers. ALLERGIES: Please see below. REVIEW OF SYSTEMS: 10 point review of system negative except for what is noted in the HPI. HOME MEDICATIONS: Please see below. PHYSICAL EXAMINATION: General: Lying in bed, no acute distress, obese Head/Neck/Throat: Trachea midline, mucous membranes moist Eyes: Sclera anicteric, no erythema or discharge appreciated bilateral Thorax: Normal respiratory effort on room air, lungs clear to auscultation bilaterally, no wheezes/rales/rhonchi Cardiovascular: Normal rate, regular rhythm, normal S1, S2; no S3, S4, rubs/gallops/murmurs Abdomen: Bowel sounds present, soft, mild tenderness reported with palpation (endorses chronicity), difficult to assess fluid wave Genitourinary: No CVA tenderness, no Coyne in place Musculoskeletal: Moving all extremities, no edema Skin: Warm, dry Neurologic: AAOx3, speech fluent and goal-directed, no focal deficits, grossly intact LABORATORY DATA: See below. IMAGING: None MICROBIOLOGY: Please see below. A/P #Anemia -H/h stable, no signs of symptomatic anemia at this time. -Sent by her primary blueprint assembler here for bowel prep and nonurgent colonoscopy. Bowel prep ordered. #Cirrhosis -Compensated at this time. Has regular paracentesis. Continue with low-sodium diet, furosemide, and spironolactone. #IDDM -Uncontrolled. Continue with basal regimen (formulary does not have coverage and therefore will use Levemir 80 units in the morning and 80 units at night). We will start sliding scale, and based on requirements will start prandial regimen. Hypoglycemic protocol in place. Accu-Cheks every 4 hours for now until sugars are controlled. -One-time dose of 10 units Humalog x1 #Dyslipidemia -Continue statin therapy #GERD -Continue omeprazole #Vertigo -As needed meclizine #Depression -Continue nortriptyline and buspirone #DVT prophylaxis -Heparin subcu Home Medications Scheduled Atorvastatin Calcium (Atorvastatin Calcium) 80 Mg Tab, 80 MG PO QHS Buspirone HCl (Buspirone HCl) 10 Mg Tab, 10 MG PO BID Docusate Sodium (Colace) 100 Mg Cap, 100 MG PO DAILY Ertugliflozin Pidolate (Steglatro) 5 Mg Tablet, 5 MG PO QHS Ferrous Sulfate (Ferrous Sulfate) 325 Mg Tab, 325 MG PO QHS Furosemide (Lasix) 40 Mg Tablet, 40 MG PO BID Insulin Glargine,Hum.rec.anlog (Basaglar Kwikpen U-100) 100 Unit/1 Ml Insuln.pen, 70 UNIT PO QAM Insulin Glargine,Hum.rec.anlog (Basaglar Kwikpen U-100) 100 Unit/1 Ml Insuln.pen, 80 UNIT SC QHS Insulin Lispro (Admelog) 100 Unit/1 Ml Vial, 20 UNITS SC QPM Meclizine HCl (Meclizine HCl) 25 Mg Tab, 25 MG PO BID Metformin HCl (Metformin HCl) 1,000 Mg Tab, 1,000 MG PO BID Omeprazole (Omeprazole) 40 Mg Cap, 40 MG PO BID Spironolactone (Spironolactone) 50 Mg Tablet, 50 MG PO BID Vitamin E Acetate (Vitamin E) 1,000 Unit Capsule, 1,000 UNIT PO DAILY Scheduled PRN Loratadine (Loratadine) 10 Mg Tab, 10 MG PO DAILY PRN for ALLERGIES Nortriptyline HCl (Nortriptyline HCl) 25 Mg Capsule, 25 MG PO QHS PRN for MILD PAIN (PS 1-4) Sumatriptan Succinate (Sumatriptan Succinate) 25 Mg Tab, 25 MG PO BID PRN for MIGRAINE Tizanidine HCl (Tizanidine HCl) 4 Mg Tablet, 4 MG PO QHS PRN for SPASMS Allergies Coded Allergies: TAPE (Verified Allergy, Intermediate, [facility] BANDS- RASH, 12/14/20) WOOL (FABRIC) (Unverified Allergy, Unknown, 12/14/20) A-FIB/CHADSVASC A-FIB History Current/History of A-Fib/PAF?: No HOLLI GASCA M.D. Jan 27, 2021 12:13
[2021-01-27 13:43] LABS: ALBUMIN 1.9 GM/DL (3.2-5.2); ALT/SGPT 31 U/L (12-78); BILIRUBIN,TOTAL 0.8 MG/DL (0.2-1.0); BLOOD UREA NITROGEN 19 MG/DL (7-18); CALCIUM LEVEL 8.5 MG/DL (8.5-10.1); CARBON DIOXIDE LEVEL 23 MEQ/L (21-32); CHLORIDE LEVEL 98 MEQ/L (98-107); CREATININE FOR GFR 0.94 MG/DL (0.55-1.30); GLOMERULAR FILTRATION RATE > 60.0 (>51); GLUCOSE, FASTING 547 MG/DL (70-100); SODIUM LEVEL 131 MEQ/L (136-145); TOTAL PROTEIN 6.1 GM/DL (6.4-8.2)
[2021-01-27] MEDS: LEVEMIR (INSULIN DETEMIR) 1 UNITS/0.01ML SC SCH (13:45)
[2021-01-27] MEDS ORDERED: GLUCOSE 4GM CHEW TABLET PO PRN (13:45)
[2021-01-27] MEDS ORDERED: GLUCAGON INJ 1MG VIAL SC PRN (13:45)
[2021-01-27] MEDS ORDERED: DEXTROSE 50% 50 ML SYRINGE IV PRN (13:45)
[2021-01-27] MEDS ORDERED: HumaLOG INSULIN (NovoLOG) PER UNIT SC STA ×2 (13:45→16:28)
[2021-01-27] MEDS ORDERED: SPIR50TA4 PO (14:04)
[2021-01-27] MEDS ORDERED: HOME MED LIST COMPLETE! XX SCH (14:05)
[2021-01-27] MEDS ORDERED: NORTRIPTYLINE 25 MG CAP PO PRN (14:10)
[2021-01-27] MEDS ORDERED: traMADol 50 MG TAB PO PRN (14:10)
[2021-01-27] MEDS: HEPARIN SOD (PORCINE) 5000UNITS/ML 1ML VIAL/SYRINGE SQ SCH ×2 (14:58→22:07)
[2021-01-27] MEDS ORDERED: HumuLIN R (REGULAR) INSULIN (NovoLIN R) **100U/ML** PER UNIT IV STA (16:16)
[2021-01-27] MEDS: SPIRONOLACTONE 50 MG TAB PO SCH (17:05)
[2021-01-27] MEDS: FUROSEMIDE 40 MG TAB PO SCH (17:06)
[2021-01-27] MEDS: HumaLOG INSULIN (NovoLOG) PER UNIT SC SCH (17:16)
[2021-01-27] MEDS ORDERED: BISACODYL 10 MG SUPP PR PRN (19:40)
[2021-01-27] MEDS: OMEPRAZOLE 20 MG CAP PO SCH (20:34)
[2021-01-27] MEDS: MECLIZINE 25 MG TABLET PO SCH (20:34)
[2021-01-27] MEDS: busPIRone 10 MG TAB PO SCH (20:34)
[2021-01-27] MEDS ORDERED: ATORVASTATIN 20 MG TAB PO SCH (21:00)
[2021-01-27] MEDS ORDERED: LEVEMIR (INSULIN DETEMIR) 1 UNITS/0.01ML SC SCH ×2 (21:00)
[2021-01-27] MEDS ORDERED: HumaLOG INSULIN (NovoLOG) PER UNIT SC SCH (21:00)
[2021-01-27] MEDS ORDERED: LEVEMIR (INSULIN DETEMIR) 1 UNITS/0.01ML SC ONE (21:35)
[2021-01-27 22:00] VITALS: BP 106/58
[2021-01-28] MEDS: HEPARIN SOD (PORCINE) 5000UNITS/ML 1ML VIAL/SYRINGE SQ SCH ×2 (02:23→14:00)
[2021-01-28] MEDS ORDERED: ONDANSETRON 4 MG ORAL DISINTEGRATING TAB PO PRN (02:30)
[2021-01-28 06:00] VITALS: BP 129/56
[2021-01-28] MEDS ORDERED: MAGNESIUM CITRATE 300 ML BTL PO ONE (06:00)
[2021-01-28 07:17] LABS: ALT/SGPT 39 U/L (12-78); BILIRUBIN,TOTAL 0.7 MG/DL (0.2-1.0); BLOOD UREA NITROGEN 20 MG/DL (7-18); CALCIUM LEVEL 8.9 MG/DL (8.5-10.1); CARBON DIOXIDE LEVEL 25 MEQ/L (21-32); CHLORIDE LEVEL 103 MEQ/L (98-107); CREATININE FOR GFR 0.62 MG/DL (0.55-1.30); GLOMERULAR FILTRATION RATE > 60.0 (>51); GLUCOSE, FASTING 87 MG/DL (70-100); MAGNESIUM LEVEL 1.8 MG/DL (1.8-2.4); POTASSIUM SERUM 3.4 MEQ/L (3.5-5.1); SODIUM LEVEL 137 MEQ/L (136-145); TOTAL PROTEIN 6.2 GM/DL (6.4-8.2)
[2021-01-28] MEDS ORDERED: propofoL 200 MG/20 ML VIAL As Ordered ONE ×2 (07:18→16:06)
[2021-01-28] MEDS: HumaLOG INSULIN (NovoLOG) PER UNIT SC SCH ×3 (07:30→17:30)
[2021-01-28] MEDS: LEVEMIR (INSULIN DETEMIR) 1 UNITS/0.01ML SC SCH (09:00)
[2021-01-28] MEDS: busPIRone 10 MG TAB PO SCH (09:00)
[2021-01-28] MEDS ORDERED: DOCUSATE SODIUM 100MG CAPSULE PO SCH (09:00)
[2021-01-28] MEDS: FUROSEMIDE 40 MG TAB PO SCH ×3 (09:00→17:52)
[2021-01-28] MEDS ORDERED: KCL 10MEQ/100ML SWI (KRUN) 10 MEQ in IV 1 EA IV ONE (11:45)
[2021-01-28 14:00] VITALS: BP 131/66
[2021-01-28] MEDS ORDERED: KCL 40MEQ IN D5/0.45NS 1000ML 1,000 ML IV SCH (14:05)
--- NOTE | 2021-01-28 16:10 | ROOR ---
Patient Name: Felicita Esposito Procedure Date: 01/28/2021 3:25 PM Date of : 1965 Age: 55 Room: [facility] Gender: Female Note Status: Finalized Procedure: Upper GI endoscopy Indications: Iron deficiency anemia, Cirrhosis with suspected esophageal varices, Follow-up of esophageal varices Providers: Jack Landaverde MD Referring MD: [facility] May Requesting Provider: Medicines: Monitored Anesthesia Care Complications: No immediate complications. Procedure: Pre-Anesthesia Assessment: - The heart rate, respiratory rate, oxygen saturations, blood pressure, adequacy of pulmonary ventilation, and response to care were monitored throughout the procedure. The Endoscope was introduced through the mouth, and advanced to the second part of duodenum. The upper GI endoscopy was accomplished without difficulty. The patient tolerated the procedure well. Findings: Non Bleeding Grade II varices were found in the lower third of the esophagus. They were medium in size. Two bands were successfully placed with complete eradication, resulting in deflation of varices. Moderate portal hypertensive gastropathy was found in the cardia and in the gastric fundus. The exam was otherwise without abnormality. Impression: - Non Bleeding Grade II esophageal varices. Completely eradicated. Banded. - Portal hypertensive gastropathy. - The examination was otherwise normal. - No specimens collected. Recommendation: - Observe patient's clinical course. - Use a proton pump inhibitor PO BID indefinitely. - Take Viscous Lidocaine 2% 5 mL by mouth every four hours PRN chest/esophageal pain related to variceal banding x 24 hrs - (the script was sent to your pharmacy on file) - Return to my office as previously scheduled. Procedure Code(s): --- Professional --- 27179, Esophagogastroduodenoscopy, flexible, transoral; with band ligation of esophageal/gastric varices Diagnosis Code(s): --- Professional --- K74.60, Unspecified cirrhosis of liver D50.9, Iron deficiency anemia, unspecified K31.89, Other diseases of stomach and duodenum K76.6, Portal hypertension I85.10, Secondary esophageal varices without bleeding CPT copyright 2019 [place] [employer]. All rights reserved. The codes documented in this report are preliminary and upon bias cutter helper review may be revised to meet current compliance requirements. Jack Landaverde MD Jack Landaverde MD 01/28/2021 4:09:29 PM Electronically signed by Jack Landaverde MD Number of Addenda: 0 Note Initiated On: 01/28/2021 3:25 PM Estimated Blood Loss: Estimated blood loss: none.
[2021-01-28 16:11] VITALS: BP 106/59
--- NOTE | 2021-01-28 16:15 | ROOR ---
Patient Name: Felicita Esposito Procedure Date: 01/28/2021 3:26 PM Date of : 1965 Age: 55 Room: [facility] Gender: Female Note Status: Finalized Procedure: Colonoscopy Indications: Hematochezia, Iron deficiency anemia Providers: Jack Landaverde MD Referring MD: [facility] May Requesting Provider: Medicines: Monitored Anesthesia Care Complications: No immediate complications. Procedure: Pre-Anesthesia Assessment: - The heart rate, respiratory rate, oxygen saturations, blood pressure, adequacy of pulmonary ventilation, and response to care were monitored throughout the procedure. The Colonoscope was introduced through the anus and advanced to the terminal ileum, with identification of the appendiceal orifice and IC valve. The colonoscopy was performed without difficulty. The patient tolerated the procedure well. The quality of the bowel preparation was good. The bowel preparation used was Miralax via 2 x 238 gm split dose PLUS magnesium citrate 300 ml dose instruction. (Multiple previous colonoscopy attempts failed. Pt admitted to hospital for aggressive inpatient colon prep) Findings: The perianal and digital rectal examinations were normal. A 5 mm polyp was found in the proximal sigmoid colon. The polyp was semi-pedunculated. The polyp was removed with a cold snare. Resection and retrieval were complete. To prevent bleeding after the polypectomy, two hemostatic clips were successfully placed. There was no bleeding at the end of the procedure. Internal hemorrhoids were found during retroflexion. The hemorrhoids were moderate. The exam was otherwise without abnormality on direct and retroflexion views. Impression: - One 5 mm polyp in the proximal sigmoid colon, removed with a cold snare. Resected and retrieved. Clips were placed. - Internal hemorrhoids. - The colon examination was otherwise normal on direct and retroflexion views. Recommendation: - Continue present medications. - Low sodium diet. Procedure Code(s): --- Professional --- 91138, Colonoscopy, flexible; with removal of tumor(s), polyp(s), or other lesion(s) by snare technique Diagnosis Code(s): --- Professional --- K63.5, Polyp of colon K64.8, Other hemorrhoids K92.1, Melena (includes Hematochezia) D50.9, Iron deficiency anemia, unspecified CPT copyright 2019 [employer]. All rights reserved. The codes documented in this report are preliminary and upon truss driver helper review may be revised to meet current compliance requirements. Jack Landaverde MD Jack Landaverde MD 01/28/2021 4:15:21 PM Electronically signed by Jack Landaverde MD Number of Addenda: 0 Note Initiated On: 01/28/2021 3:26 PM Estimated Blood Loss: Estimated blood loss: none.
--- NOTE | 2021-01-28 16:35 | DS.PDOC ---
Discharge Summary General Date of Admission Jan 27, 2021 at 12:27 Date of Discharge 01/28/21 Primary Care Physician: JADEN KOVACS D.O. Discharge Summary Discharge Dx: 1. Hyperglycemia 2. Non-emergent endoscopic screen Ms. Esposito, was seen at [facility] on 01/27/2021 after she was sent by her primary care movie stunt performer for a nonemergent endoscopic evaluation. Prior to endoscopic studies she was noted to have hyperglycemia. She was found to have several carbonated drinks in her room. Noncompliance with appropriate diet was the reason for her elevated glucose. She need to be treated with bolus insulin. Its noted she is on SGLT-2 and metformin at home, hopeful with these resumed as outpatient and appropriate diet her blood glucose will be controlled. She must follow up with her primary care doctor for appropriate management. She underwent an upper and lower endoscopy. On upper endoscopy there was nonbleeding grade 2 esophageal varices appreciated that were banded prop hylactically. She was encouraged to continue with high-dose PPI. Lower colonoscopy noted no acute findings for bleed; there was one 5 mm polyp in the proximal sigmoid colon, removed; and internal hemorrhoids. She will need to follow-up with her primary movie stunt performer for biopsy results. This will help determine appropriate colonoscopy screening as well. Vital Signs/I&Os Vital Signs Date Time Temp Pulse Resp B/P (MAP) Pulse Ox O2 Delivery O2 Flow Rate FiO2 01/28/21 14:00 98.2 101 19 131/66 (87) 97 Room Air I&O- Last 24 Hours up to 6 AM 01/28/21 06:00 Intake Total 3540 ml Balance 3540 ml Laboratory Data Labs 24H Laboratory Tests 2 01/27/21 17:41: Bedside Glucose (Misc Panel) 454H 01/27/21 21:07: Bedside Glucose (Misc Panel) 219H 01/28/21 00:41: Bedside Glucose (Misc Panel) 167H 01/28/21 06:10: Anion Gap 9, Glomerular Filtration Rate > 60.0, Calcium Level 8.9, Phosphorus Level 3.0, Magnesium Level 1.8, Total Bilirubin 0.7, Aspartate Amino Transf (AST/SGOT) 46H, Alanine Aminotransferase (ALT/SGPT) 39, Alkaline Phosphatase 183H, Total Protein 6.2L, Albumin 2.0L, Albumin/Globulin Ratio 0.5L 01/28/21 11:22: Bedside Glucose (Misc Panel) 97 01/28/21 12:42: Bedside Glucose (Misc Panel) 81 CBC/BMP Laboratory Tests 01/28/21 06:10 FSBS Laboratory Tests Test 01/27/21 17:41 01/27/21 21:07 01/28/21 00:41 01/28/21 11:22 Range/Units Bedside Glucose (Misc Panel) 454 219 167 97 70-105 MG/DL Test 01/28/21 12:42 Range/Units Bedside Glucose (Misc Panel) 81 70-105 MG/DL Discharge Medications Scheduled Atorvastatin Calcium (Atorvastatin Calcium) 80 Mg Tab, 80 MG PO QHS, (Reported) Buspirone HCl (Buspirone HCl) 10 Mg Tab, 10 MG PO BID, (Reported) Docusate Sodium (Colace) 100 Mg Cap, 100 MG PO DAILY, (Reported) Ertugliflozin Pidolate (Steglatro) 5 Mg Tablet, 5 MG PO QHS, (Reported) Ferrous Sulfate (Ferrous Sulfate) 325 Mg Tab, 325 MG PO QHS, (Reported) Furosemide (Lasix) 40 Mg Tablet, 40 MG PO BID, (Reported) Insulin Glargine,Hum.rec.anlog (Basaglar Kwikpen U-100) 100 Unit/1 Ml Insuln.pen, 70 UNIT PO QAM, (Reported) Insulin Glargine,Hum.rec.anlog (Basaglar Kwikpen U-100) 100 Unit/1 Ml Insuln.pen, 80 UNIT SC QHS, (Reported) Insulin Lispro (Admelog) 100 Unit/1 Ml Vial, 20 UNITS SC QPM, (Reported) Meclizine HCl (Meclizine HCl) 25 Mg Tab, 25 MG PO BID, (Reported) Metformin HCl (Metformin HCl) 1,000 Mg Tab, 1,000 MG PO BID, (Reported) Omeprazole (Omeprazole) 40 Mg Cap, 40 MG PO BID, (Reported) Spironolactone (Spironolactone) 50 Mg Tablet, 50 MG PO BID, (Reported) Vitamin E Acetate (Vitamin E) 1,000 Unit Capsule, 1,000 UNIT PO DAILY, (Reported) Scheduled PRN Loratadine (Loratadine) 10 Mg Tab, 10 MG PO DAILY PRN for ALLERGIES, (Reported) Nortriptyline HCl (Nortriptyline HCl) 25 Mg Capsule, 25 MG PO QHS PRN for MILD PAIN (PS 1-4), (Reported) Sumatriptan Succinate (Sumatriptan Succinate) 25 Mg Tab, 25 MG PO BID PRN for MIGRAINE, (Reported) Tizanidine HCl (Tizanidine HCl) 4 Mg Tablet, 4 MG PO QHS PRN for SPASMS, (Reported) Allergies Coded Allergies: TAPE (Verified Allergy, Intermediate, [facility] BANDS- RASH, 12/14/20) WOOL (FABRIC) (Unverified Allergy, Unknown, 12/14/20) Physical Examination Vital Signs/I&O Vital Signs Date Time Temp Pulse Resp B/P (MAP) Pulse Ox O2 Delivery O2 Flow Rate FiO2 01/28/21 14:00 98.2 101 19 131/66 (87) 97 Room Air I&O- Last 24 Hours up to 6 AM 01/28/21 06:00 Intake Total 3540 ml Balance 3540 ml Physical Exam General: Lying in bed, no acute distress, obese Head/Neck/Throat: Trachea midline, mucous membranes moist Eyes: Sclera anicteric, no erythema or discharge appreciated bilateral Thorax: Normal respiratory effort on room air, lungs clear to auscultation bilat erally, no wheezes/rales/rhonchi Cardiovascular: Normal rate, regular rhythm, normal S1, S2; no S3, S4, rubs/gallops/murmurs Abdomen: Bowel sounds present, soft, mild tenderness reported with palpation (endorses chronicity), difficult to assess fluid wave Genitourinary: No CVA tenderness, no Coyne in place Musculoskeletal: Moving all extremities, no edema Skin: Warm, dry Neurologic: AAOx3, speech fluent and goal-directed, no focal deficits, grossly intact HOLLI GASCA M.D. Jan 28, 2021 16:23
[2021-01-28] MEDS ORDERED: POTASSIUM CHLORIDE 10 MEQ SR TABLET PO ONE (16:55)
[2021-01-28] MEDS: OMEPRAZOLE 20 MG CAP PO SCH ×2 (17:51→18:02)
[2021-01-28] MEDS: SPIRONOLACTONE 50 MG TAB PO SCH ×2 (17:52→17:56)
[2021-01-28] MEDS: MECLIZINE 25 MG TABLET PO SCH ×2 (17:52→18:02)
[2021-01-28] MEDS ORDERED: LEVEMIR (INSULIN DETEMIR) 1 UNITS/0.01ML SC SCH (21:00)
== END 2021-01-28 19:15 | disposition home or self-care (01) ==
LOC: M MS5PR 12:27
PROVIDERS: ADMIT Internal Medicine Gastroenterology; ATTEND Internal Medicine
DX: R73.9 Hyperglycemia, unspecified (principal); K63.5 Polyp of colon; K64.8 Other hemorrhoids; K92.1 Melena; D50.9 Iron deficiency anemia, unspecified; K74.60 Unspecified cirrhosis of liver; I85.10 Secondary esophageal varices without bleeding; K76.6 Portal hypertension; K31.89 Other diseases of stomach and duodenum; E11.65 Type 2 diabetes mellitus with hyperglycemia; F41.9 Anxiety disorder, unspecified; F32.9 Major depressive disorder, single episode, unspecified; I10 Essential (primary) hypertension; R42 Dizziness and giddiness; Z79.4 Long term (current) use of insulin; Z79.84 Long term (current) use of oral hypoglycemic drugs; Z79.899 Other long term (current) drug therapy; Z88.8 Allergy status to other drugs, medicaments and biological substances
CPT/HCPCS: 36415; 43244; 45385; 80053; 82947; 83735; 84100; 85025; 85610; 85730; 86850; 86900; 86901; 88305; J1644; Q0162; U0002

== ENCOUNTER → 2021-02-02 | Outpatient (CLI) | payer OTHER ==
[~2021-02-02] MED LIST changes: +LIDOCAINE 1% MDV 20ML VIAL As Ordered ONE; +SODIUM BICARBONATE 8.4% INJ 50MEQ 50 ML VIAL As Ordered ONE; +SPIR50TA4 PO
[2021-02-02 13:10] VITALS: BP 152/82
--- NOTE | 2021-02-02 15:46 | REP ---
INDICATION: ASCITES The patient has a history of ascites COMPARISON: None. TECHNIQUE: The procedure was performed by HIMA Ortiz, under the direct supervision of Dr. Zelaya The risks and benefits of the procedure were explained to the patient and an informed consent was obtained both verbally and written. Directly prior to the start of the procedure a formal time-out was completed in the procedure room. The largest pocket of fluid was localized in the right flank using ultrasound guidance. The skin was prepped and draped in a sterile fashion. Eleven ML of buffered lidocaine was used as a local anesthetic. An 8-Uzbek multi side-hole catheter was inserted using trocar technique. FINDINGS: 5500 mL of yellow ascites was removed and discarded. The patient tolerated the procedure well and there were no immediate complications. After the appropriate amount of monitored convalescence, the patient was discharged from the department. IMPRESSION: Ultrasound-guided paracentesis with removal of 5500 mL of yellow ascites. <Electronically signed by Negar Cheatham > 02/02/21 1436 <Electronically signed by Ish Zelaya > 02/02/21 1544
== END ==
LOC: M IRPRO 11:30
PROVIDERS: ATTEND Internal Medicine Gastroenterology
DX: K74.60 Unspecified cirrhosis of liver (principal); R19.8 Other specified symptoms and signs involving the digestive system and abdomen

== ENCOUNTER 2021-02-04 16:19 | Emergency (ER) | payer OTHER ==
[~2021-02-04] VITALS: Ht 167.6 cm; Wt 96.4 kg
[~2021-02-04 16:19] MED LIST changes: -LIDOCAINE 1% MDV 20ML VIAL As Ordered ONE; -SODIUM BICARBONATE 8.4% INJ 50MEQ 50 ML VIAL As Ordered ONE
[2021-02-04] MEDS ORDERED: FUROSEMIDE 40MG/4ML VIAL (J1940) IV ONE (20:15)
--- NOTE | 2021-02-04 21:31 | REPVR ---
PROCEDURE INFORMATION: Exam: XR Chest Exam date and time: 02/04/2021 8:33 PM Age: 55 years old Clinical indication: Other: Edema TECHNIQUE: Imaging protocol: XR of the chest. Views: 1 view. COMPARISON: 1. CR PORTABLE CHEST X-RAY 2020-12-24 17:45 2. CR Chest, 2 view PA, Lat 2020-12-06 15:31 3. NM PORTABLE CHEST X-RAY 2020-11-18 16:07 FINDINGS: Lungs: Left basilar dependent subsegmental atelectasis. Pleural spaces: Unremarkable. No pleural effusion. No pneumothorax. Heart/Mediastinum: Unremarkable. No cardiomegaly. Bones/joints: Unremarkable. IMPRESSION: No acute findings. Electronically signed by: Jack Charles On 02/04/2021 21:30:54 PM
[2021-02-04 21:42] LABS: BASO % 0.7 % (0.0-1.0); EOS # 0.2 10^3/uL (0.0-0.5); HEMATOCRIT 34.7 % (36.0-47.0); HEMOGLOBIN 11.3 g/dl (12.0-15.5); LYMPH # 1.3 10^3/uL (1.5-5.0); LYMPH % 24.4 % (24.0-44.0); MEAN CORPUSCULAR HEMOGLOBIN 28.3 pg (27.0-33.0); MEAN CORPUSCULAR HGB CONC 32.6 g/dl (32.0-36.5); MEAN CORPUSCULAR VOLUME 86.8 fl (80.0-96.0); MONO # 0.6 10^3/uL (0.0-0.8); MONO % 10.9 % (2.0-8.0); NEUTROPHILS # 3.3 10^3/uL (1.5-8.5); NEUTROPHILS % 60.3 % (36.0-66.0); PLATELET COUNT, AUTOMATED 100 10^3/uL (150-450); WHITE BLOOD COUNT 5.4 10^3/uL (4.0-10.0)
[2021-02-04 21:51] LABS: APPEARANCE, URINE CLOUDY (CLEAR); BACTERIA, URINE AUTO 2+ (NEGATIVE); BILIRUBIN, URINE AUTO NEGATIVE (NEGATIVE); BLOOD, URINE BLOOD 2+ (NEGATIVE); COLOR, URINE YELLOW (YELLOW); GLUCOSE, URINE (UA) AUTO 3+ mg/dL (NEGATIVE); KETONE, URINE AUTO NEGATIVE (NEGATIVE); LEUKOCYTE ESTERASE, URINE AUTO 1+ (NEGATIVE); NITRITE, URINE AUTO NEGATIVE (NEGATIVE); PROTEIN, URINE AUTO NEGATIVE (NEGATIVE); RBC, URINE AUTO 1 /HPF (0-3); SPECIFIC GRAVITY URINE AUTO 1.014 (1.002-1.035); SQUAMOUS EPITHELIAL CELL UR AU 2 /HPF (0-6); UROBILINOGEN, URINE AUTO 0.2 mg/dL (0.0-2.0); WBC, URINE AUTO 46 /HPF (0-3)
[2021-02-04 21:55] LABS: INR 1.17; PROTHROMBIN TIME 15.3 SECONDS (12.7-14.5)
[2021-02-04 21:56] LABS: PARTIAL THROMBOPLASTIN TIME 28.5 SECONDS (25.9-37.0)
[2021-02-04 22:17] LABS: ALT/SGPT 37 U/L (12-78); BILIRUBIN,DIRECT 0.4 MG/DL (0.0-0.2); BILIRUBIN,TOTAL 0.8 MG/DL (0.2-1.0); BLOOD UREA NITROGEN 23 MG/DL (7-18); CALCIUM LEVEL 8.2 MG/DL (8.5-10.1); CARBON DIOXIDE LEVEL 27 MEQ/L (21-32); CHLORIDE LEVEL 99 MEQ/L (98-107); CREATININE FOR GFR 0.87 MG/DL (0.55-1.30); GLOMERULAR FILTRATION RATE > 60.0 (>51); GLUCOSE, FASTING 175 MG/DL (70-100); NT-PRO BNP 313 PG/ML (<125); SODIUM LEVEL 134 MEQ/L (136-145); TOTAL PROTEIN 6.4 GM/DL (6.4-8.2)
[2021-02-04] MEDS ORDERED: POTASSIUM CHLORIDE 10 MEQ SR TABLET PO ONE (22:25)
[2021-02-04] MEDS ORDERED: KCL 10MEQ/100ML SWI (KRUN) 10 MEQ in IV 1 EA IV ONE (22:30)
[2021-02-04] MEDS ORDERED: MACR100C43 PO (23:57)
[2021-02-05 00:32] VITALS: BP 154/78
== END 2021-02-05 00:34 | disposition home or self-care (01) ==
LOC: M ED 16:19
DX: R22.43 Localized swelling, mass and lump, lower limb, bilateral (principal); N39.0 Urinary tract infection, site not specified; E87.6 Hypokalemia; E11.9 Type 2 diabetes mellitus without complications; I10 Essential (primary) hypertension; E78.5 Hyperlipidemia, unspecified; K74.60 Unspecified cirrhosis of liver; Z91.048 Other nonmedicinal substance allergy status; Z79.4 Long term (current) use of insulin; Z79.899 Other long term (current) drug therapy
CPT/HCPCS: 71045; 80048; 80076; 81001; 83880; 85025; 85610; 85730; 96365; 96366; 99284; J1940

== ENCOUNTER → 2021-02-07 | Outpatient (REF) | payer OTHER ==
[~2021-02-07] MED LIST changes: +MACR100C43 PO
[2021-02-07 17:38] LABS: BLOOD UREA NITROGEN 18 MG/DL (7-18); CALCIUM LEVEL 8.2 MG/DL (8.5-10.1); CARBON DIOXIDE LEVEL 27 MEQ/L (21-32); CHLORIDE LEVEL 98 MEQ/L (98-107); GLOMERULAR FILTRATION RATE > 60.0 (>51); GLUCOSE, FASTING 192 MG/DL (70-100); POTASSIUM SERUM 3.3 MEQ/L (3.5-5.1); SODIUM LEVEL 133 MEQ/L (136-145)
== END ==
LOC: M SFHCPLAZ 15:42
PROVIDERS: ATTEND Family Medicine
DX: E11.9 Type 2 diabetes mellitus without complications (principal); E87.6 Hypokalemia

== ENCOUNTER → 2021-02-09 | Outpatient (CLI) | payer OTHER ==
[2021-02-09 12:45] VITALS: BP 133/64
--- NOTE | 2021-02-09 16:41 | REP ---
INDICATION: ASCITES. COMPARISON: None. TECHNIQUE: The procedure was performed under the direct supervision of Dr. Hall. The risks and benefits of the procedure were explained to the patient and informed consent was obtained. The largest pocket of fluid was localized in the left lower quadrant using ultrasound guidance. The skin was prepped and draped in a sterile fashion. 8 mL of 1% lidocaine was used as a local anesthetic. Using ultrasound guidance an 8-Maltese multi side-hole catheter was inserted using trocar technique.4000 mL of yellow fluid was withdrawn and discarded. Estimated blood loss: Less than 1 mL The patient tolerated the procedure well and there were no immediate complications. After the appropriate amount of monitored convalescence, the patient was discharged from the department. FINDINGS: None IMPRESSION: Ultrasound-guided paracentesis [id number] mL of yellow fluid. <Electronically signed by Reece Araiza > 02/09/21 1517 <Electronically signed by Cirilo Hall > 02/09/21 [id number]
== END ==
LOC: M IRPRO 11:32
PROVIDERS: ATTEND Internal Medicine Gastroenterology
DX: R18.8 Other ascites (principal); K74.60 Unspecified cirrhosis of liver

== ENCOUNTER → 2021-02-16 | Outpatient (CLI) | payer OTHER ==
[~2021-02-16] MED LIST changes: +GABA600T4 PO; +HYDR12CA PO; +LIDOCAINE 1% MDV 20ML VIAL As Ordered ONE; +SODIUM BICARBONATE 8.4% INJ 50MEQ 50 ML VIAL As Ordered ONE
[2021-02-16 13:40] VITALS: BP 124/64
--- NOTE | 2021-02-16 15:58 | REP ---
INDICATION: ASCITES The patient has a history of ascites COMPARISON: None. TECHNIQUE: The procedure was performed by HIMA Ortiz, under the direct supervision of Dr. Zelaya The risks and benefits of the procedure were explained to the patient and an informed consent was obtained both verbally and written. Directly prior to the start of the procedure a formal time-out was completed in the procedure room. The largest pocket of fluid was localized in the left flank using ultrasound guidance. The skin was prepped and draped in a sterile fashion. Eleven ML of buffered lidocaine was used as a local anesthetic. An 8-Wallisian multi side-hole catheter was inserted using trocar technique. FINDINGS: 5650 mL of yellow ascites was removed and discarded. The patient tolerated the procedure well and there were no immediate complications. After the appropriate amount of monitored convalescence, the patient was discharged from the department. IMPRESSION: Ultrasound-guided paracentesis with removal of 5650 mL of yellow ascites. <Electronically signed by Negar Cheatham > 02/16/21 1544 <Electronically signed by Ish Zelaya > 02/16/21 [id number]
== END ==
LOC: M IRPRO 11:28
PROVIDERS: ATTEND Internal Medicine Gastroenterology
DX: R18.8 Other ascites (principal); K74.60 Unspecified cirrhosis of liver

== ENCOUNTER → 2021-02-23 | Outpatient (CLI) | payer OTHER ==
[~2021-02-23] MED LIST changes: -LIDOCAINE 1% MDV 20ML VIAL As Ordered ONE; -SODIUM BICARBONATE 8.4% INJ 50MEQ 50 ML VIAL As Ordered ONE
[2021-02-23 12:01] VITALS: BP 130/66
--- NOTE | 2021-03-01 15:38 | REP ---
INDICATION: ASCITES. COMPARISON: None. TECHNIQUE: The procedure was performed under the direct supervision of Dr. Hall. The risks and benefits of the procedure were explained to the patient and informed consent was obtained. The largest pocket of fluid was localized in the right lower quadrant using ultrasound guidance. The skin was prepped and draped in a sterile fashion. 4 mL of 1% lidocaine was used as a local anesthetic. An 8-Arabic multi side-hole catheter was inserted using trocar technique.4200 mL of yellow fluid was withdrawn and discarded. Estimated blood loss: Less than 1 mL The patient tolerated the procedure well and there were no immediate complications. After the appropriate amount of monitored convalescence, the patient was discharged from the department. FINDINGS: None IMPRESSION: Ultrasound-guided paracentesis [id number] mL of yellow fluid. <Electronically signed by Reece Araiza > 02/23/21 1521 <Electronically signed by Cirilo Hall > 03/01/21 1536
== END ==
LOC: M IRPRO 11:08
PROVIDERS: ATTEND Internal Medicine Gastroenterology
DX: R18.8 Other ascites (principal); K74.60 Unspecified cirrhosis of liver

== ENCOUNTER → 2021-03-01 | Outpatient (REF) | payer OTHER | LOC: M SFHCPLAZ 10:51 | PROVIDERS: ATTEND Family Medicine | DX: E87.6 Hypokalemia (principal) ==

== ENCOUNTER → 2021-03-02 | Outpatient (CLI) | payer OTHER ==
[2021-03-02 12:49] LABS: BLOOD UREA NITROGEN 28 MG/DL (7-18); CARBON DIOXIDE LEVEL 27 MEQ/L (21-32); CHLORIDE LEVEL 106 MEQ/L (98-107); CREATININE FOR GFR 0.86 MG/DL (0.55-1.30); GLOMERULAR FILTRATION RATE > 60.0 (>51); GLUCOSE, FASTING 247 MG/DL (70-100); POTASSIUM SERUM 4.7 MEQ/L (3.5-5.1); SODIUM LEVEL 137 MEQ/L (136-145)
== END ==
LOC: M LAB 11:46
PROVIDERS: ATTEND Student in an Organized Health Care Education/Training Program
DX: E87.6 Hypokalemia (principal)

== ENCOUNTER → 2021-03-03 | Outpatient (CLI) | payer OTHER ==
[~2021-03-03] MED LIST changes: +LIDOCAINE 1% MDV 20ML VIAL As Ordered ONE; +SODIUM BICARBONATE 8.4% INJ 50MEQ 50 ML VIAL As Ordered ONE
[2021-03-03 12:58] VITALS: BP 147/71
--- NOTE | 2021-03-03 14:30 | REP ---
INDICATION: ASCITES The patient has a history of ascites COMPARISON: None. TECHNIQUE: The procedure was performed by Dr. Lind under the personal supervision of HIMA Ortiz, under the direct supervision of Dr. Hall The risks and benefits of the procedure were explained to the patient and an informed consent was obtained both verbally and written. Directly prior to the start of the procedure a formal time-out was completed in the procedure room. The largest pocket of fluid was localized in the right flank using ultrasound guidance. The skin was prepped and draped in a sterile fashion. Eleven ML of buffered lidocaine was used as a local anesthetic. An 8-[place] multi side-hole catheter was inserted using trocar technique. FINDINGS: 4150 mL of goran ascites was removed and discarded. The patient tolerated the procedure well and there were no immediate complications. After the appropriate amount of monitored convalescence, the patient was discharged from the department. IMPRESSION: Ultrasound-guided paracentesis with removal of 4150 mL of goran ascites. <Electronically signed by Negar Cheatham > 03/03/21 1326 <Electronically signed by Cirilo Hall > 03/03/21 [id number]
== END ==
LOC: M IRPRO 11:21
PROVIDERS: ATTEND Internal Medicine Gastroenterology
DX: R18.8 Other ascites (principal); K75.81 Nonalcoholic steatohepatitis (NASH); K74.69 Other cirrhosis of liver

== ENCOUNTER → 2021-03-09 | Outpatient (CLI) | payer OTHER ==
[~2021-03-09] MED LIST changes: -LIDOCAINE 1% MDV 20ML VIAL As Ordered ONE; -SODIUM BICARBONATE 8.4% INJ 50MEQ 50 ML VIAL As Ordered ONE
[2021-03-09 11:35] VITALS: BP 147/73
--- NOTE | 2021-03-09 14:09 | REP ---
INDICATION: ASCITES. COMPARISON: None. TECHNIQUE: The procedure was performed under the direct supervision of Dr. Hall. The procedure was performed by Dr. Alvarez under my personal guidance. The risks and benefits of the procedure were explained to the patient and informed consent was obtained. The largest pocket of fluid was localized in the right flank using ultrasound guidance. The skin was prepped and draped in a sterile fashion. 7 mL of 1% lidocaine was used as a local anesthetic. An 8-Nepali multi side-hole catheter was inserted using trocar technique.3800 mL of yellow fluid was withdrawn and discarded. Estimated blood loss: Less than 1 mL The patient tolerated the procedure well and there were no immediate complications. After the appropriate amount of monitored convalescence, the patient was discharged from the department. FINDINGS: None IMPRESSION: Ultrasound-guided paracentesis [id number] mL of yellow fluid. <Electronically signed by Reece Araiza > 03/09/21 1220 <Electronically signed by Cirilo Hall > 03/09/21 3064
== END ==
LOC: M IRPRO 10:42
PROVIDERS: ATTEND Internal Medicine Gastroenterology
DX: R18.8 Other ascites (principal); K75.81 Nonalcoholic steatohepatitis (NASH)

== ENCOUNTER → 2021-03-16 | Outpatient (CLI) | payer OTHER ==
[~2021-03-16] MED LIST changes: +SODIUM BICARBONATE 8.4% INJ 50MEQ 50 ML VIAL As Ordered ONE
[2021-03-16 12:06] VITALS: BP 146/86
--- NOTE | 2021-03-16 12:56 | REP ---
INDICATION: ASCITES The patient has a history of ascites COMPARISON: None. TECHNIQUE: The procedure was performed by HIMA Ortiz, under the direct supervision of Dr. Zelaya The risks and benefits of the procedure were explained to the patient and an informed consent was obtained both verbally and written. Directly prior to the start of the procedure a formal time-out was completed in the procedure room. The largest pocket of fluid was localized in the left flank using ultrasound guidance. The skin was prepped and draped in a sterile fashion. Eleven ML of buffered lidocaine was used as a local anesthetic. An 8-Croatian multi side-hole catheter was inserted using trocar technique. FINDINGS: 3800 mL of yellow ascites was removed and discarded. The patient tolerated the procedure well and there were no immediate complications. After the appropriate amount of monitored convalescence, the patient was discharged from the department. IMPRESSION: Ultrasound-guided paracentesis with removal of 3800 mL of yellow ascites. <Electronically signed by Negar Cheatham > 03/16/21 1223 <Electronically signed by Ish Zelaya > 03/16/21 125
== END ==
LOC: M IRPRO 10:55
PROVIDERS: ATTEND Internal Medicine Gastroenterology
DX: R18.8 Other ascites (principal); K74.69 Other cirrhosis of liver; K75.81 Nonalcoholic steatohepatitis (NASH)

== ENCOUNTER → 2021-03-23 | Outpatient (CLI) | payer OTHER ==
[~2021-03-23] MED LIST changes: +CONS10SO3 PO; -SODIUM BICARBONATE 8.4% INJ 50MEQ 50 ML VIAL As Ordered ONE; +TORS10TA3 PO
[2021-03-23 12:10] VITALS: BP 149/75
--- NOTE | 2021-03-23 16:45 | REP ---
INDICATION: ASCITES. COMPARISON: None. TECHNIQUE: The procedure was performed under the direct supervision of Dr. Zelaya. The risks and benefits of the procedure were explained to the patient and informed consent was obtained. The largest pocket of fluid was localized in the right flank using ultrasound guidance. The skin was prepped and draped in a sterile fashion. 6 mL of 1% lidocaine was used as a local anesthetic. Using ultrasound guidance, an 8-Wolof multi side-hole catheter was inserted using trocar technique.5100 mL of yellow fluid was withdrawn and discarded. Estimated blood loss: Less than 1 mL The patient tolerated the procedure well and there were no immediate complications. After the appropriate amount of monitored convalescence, the patient was discharged from the department. FINDINGS: None IMPRESSION: Ultrasound-guided paracentesis [id number] mL of yellow fluid. <Electronically signed by Reece Araiza > 03/23/21 1542 <Electronically signed by Ish Zelaya > 03/23/21 6184
== END ==
LOC: M IRPRO 10:57
PROVIDERS: ATTEND Internal Medicine Gastroenterology
DX: R18.8 Other ascites (principal); K75.81 Nonalcoholic steatohepatitis (NASH); K74.69 Other cirrhosis of liver

== ENCOUNTER 2021-03-24 13:58 | Emergency (ER) | payer OTHER ==
[~2021-03-24] VITALS: Ht 167.6 cm; Wt 98.2 kg
[2021-03-24 17:57] LABS: VENOUS BASE EXCESS -5.2 (-2.0-2.0); VENOUS HCO3 19.8 MEQ/L (23.0-27.0); VENOUS O2 SATURATION 82.1 % (60.0-80.0); VENOUS PARTIAL PRESSURE CO2 37.1 mmHg (38.0-50.0); VENOUS PARTIAL PRESSURE O2 50.5 mmHg (30.0-50.0); VENOUS PH 7.346 UNITS (7.330-7.430); VENOUS STANDARD HCO3 19.9 MEQ/L
[2021-03-24 18:00] LABS: BASO % 0.8 % (0.0-1.0); EOS # 0.1 10^3/uL (0.0-0.5); EOS % 2.1 % (0.0-3.0); HEMATOCRIT 33.8 % (36.0-47.0); HEMOGLOBIN 11.2 g/dl (12.0-15.5); LYMPH # 0.8 10^3/uL (1.5-5.0); LYMPH % 16.2 % (24.0-44.0); MEAN CORPUSCULAR HEMOGLOBIN 29.5 pg (27.0-33.0); MEAN CORPUSCULAR HGB CONC 33.1 g/dl (32.0-36.5); MEAN CORPUSCULAR VOLUME 88.9 fl (80.0-96.0); MONO # 0.5 10^3/uL (0.0-0.8); MONO % 9.9 % (2.0-8.0); NEUTROPHILS # 3.3 10^3/uL (1.5-8.5); NEUTROPHILS % 70.4 % (36.0-66.0); PLATELET COUNT, AUTOMATED 110 10^3/uL (150-450); WHITE BLOOD COUNT 4.8 10^3/uL (4.0-10.0)
[2021-03-24] MEDS ORDERED: NS 1,000 ML IV ONE (18:20)
[2021-03-24 18:28] LABS: ACETONE/KETONE 0.73 MG/DL (<2.81); ALBUMIN 1.9 GM/DL (3.2-5.2); ALT/SGPT 36 U/L (12-78); BILIRUBIN,DIRECT 0.5 MG/DL (0.0-0.2); BILIRUBIN,TOTAL 1.1 MG/DL (0.2-1.0); BLOOD UREA NITROGEN 17 MG/DL (7-18); CALCIUM LEVEL 8.5 MG/DL (8.5-10.1); CARBON DIOXIDE LEVEL 24 MEQ/L (21-32); CHLORIDE LEVEL 98 MEQ/L (98-107); CPK CREATINE PHOSPHOKINASE 117 U/L (26-192); CREATININE FOR GFR 1.04 MG/DL (0.55-1.30); GLOMERULAR FILTRATION RATE 58.8 (>51); GLUCOSE, FASTING 551 MG/DL (70-100); LIPASE 170 U/L (73-393); MAGNESIUM LEVEL 1.8 MG/DL (1.8-2.4); MB/CK RELATIVE INDEX 2.56 (< OR =4); PHOSPHORUS LEVEL 3.7 MG/DL (2.5-4.9); POTASSIUM SERUM 3.8 MEQ/L (3.5-5.1); SODIUM LEVEL 130 MEQ/L (136-145); TOTAL PROTEIN 6.7 GM/DL (6.4-8.2); TROPONIN I < 0.02 NG/ML (< 0.10)
[2021-03-24 18:46] LABS: HEMOGLOBIN A1c 8.8 %
[2021-03-24 19:05] LABS: OSMOLALITY SERUM 296 MOSM/KG (275-295)
[2021-03-24 21:00] VITALS: BP 137/72
--- NOTE | 2021-03-24 21:46 | ECGEPIP ---
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
== END 2021-03-24 21:05 | disposition home or self-care (01) ==
LOC: M ED 13:58
DX: E11.65 Type 2 diabetes mellitus with hyperglycemia (principal); R00.0 Tachycardia, unspecified; Z79.899 Other long term (current) drug therapy

== ENCOUNTER → 2021-03-30 | Outpatient (CLI) | payer OTHER ==
[~2021-03-30] MED LIST changes: +SODIUM BICARBONATE 8.4% INJ 50MEQ 50 ML VIAL As Ordered ONE
[2021-03-30 14:41] VITALS: BP 139/81
--- NOTE | 2021-03-30 17:05 | REP ---
INDICATION: ASCITES The patient has a history of ascites COMPARISON: None. TECHNIQUE: The procedure was performed by HIMA Ortiz, under the direct supervision of Dr. Zelaya The risks and benefits of the procedure were explained to the patient and an informed consent was obtained both verbally and written. Directly prior to the start of the procedure a formal time-out was completed in the procedure room. The largest pocket of fluid was localized in the right flank using ultrasound guidance. The skin was prepped and draped in a sterile fashion. Eleven ML of buffered lidocaine was used as a local anesthetic. An 8-Bengali multi side-hole catheter was inserted using trocar technique. FINDINGS: 5100 mL of yellow ascites was removed and discarded. The patient tolerated the procedure well and there were no immediate complications. After the appropriate amount of monitored convalescence, the patient was discharged from the department. IMPRESSION: Ultrasound-guided paracentesis with removal of 5100 mL of yellow ascites. <Electronically signed by Negar Cheatham > 03/30/21 1626 <Electronically signed by Ish Zelaya > 03/30/21 1704
== END ==
LOC: M IRPRO 13:36
PROVIDERS: ATTEND Internal Medicine Gastroenterology
DX: R18.8 Other ascites (principal); K74.69 Other cirrhosis of liver

== ENCOUNTER → 2021-04-06 | Outpatient (CLI) | payer OTHER ==
[~2021-04-06] MED LIST changes: +LIDOCAINE 1% MDV 20ML VIAL As Ordered ONE; -SODIUM BICARBONATE 8.4% INJ 50MEQ 50 ML VIAL As Ordered ONE
[2021-04-06 11:51] VITALS: BP 154/100
--- NOTE | 2021-04-06 18:25 | REP ---
INDICATION: ASCITES. COMPARISON: None. TECHNIQUE: The procedure was performed under the direct supervision of Dr. Hall. The risks and benefits of the procedure were explained to the patient and informed consent was obtained. The largest pocket of fluid was localized in the left flank using ultrasound guidance. The skin was prepped and draped in a sterile fashion. 8 mL of 1% lidocaine was used as a local anesthetic. Using ultrasound guidance, an 8-Kittitian multi side-hole catheter was inserted using trocar technique.4050 mL of yellow fluid was withdrawn and discarded. Estimated blood loss: Less than 1 mL The patient tolerated the procedure well and there were no immediate complications. After the appropriate amount of monitored convalescence, the patient was discharged from the department. FINDINGS: None IMPRESSION: Ultrasound-guided paracentesis [id number] mL of yellow fluid. <Electronically signed by Reece Araiza > 04/06/21 1625 <Electronically signed by Cirilo Hall > 04/06/21 5205
== END ==
LOC: M IRPRO 11:17
PROVIDERS: ATTEND Internal Medicine Gastroenterology
DX: R18.8 Other ascites (principal); K74.69 Other cirrhosis of liver

== ENCOUNTER → 2021-04-08 | Outpatient (REF) | payer OTHER ==
[~2021-04-08] MED LIST changes: -LIDOCAINE 1% MDV 20ML VIAL As Ordered ONE
== END ==
LOC: M SFHCPLAZ 14:22
DX: K74.60 Unspecified cirrhosis of liver (principal); E87.6 Hypokalemia

== ENCOUNTER → 2021-04-11 | Outpatient (CLI) | payer OTHER ==
[~2021-04-11] MED LIST changes: +FERR325T19 PO
[2021-04-11 18:35] LABS: BLOOD UREA NITROGEN 22 MG/DL (7-18); CALCIUM LEVEL 8.9 MG/DL (8.5-10.1); CARBON DIOXIDE LEVEL 24 MEQ/L (21-32); CHLORIDE LEVEL 105 MEQ/L (98-107); CREATININE FOR GFR 0.91 MG/DL (0.55-1.30); GLOMERULAR FILTRATION RATE > 60.0 (>51); GLUCOSE, FASTING 261 MG/DL (70-100); POTASSIUM SERUM 4.2 MEQ/L (3.5-5.1); SODIUM LEVEL 137 MEQ/L (136-145)
== END ==
LOC: M PLALAB 14:36
PROVIDERS: ATTEND Student in an Organized Health Care Education/Training Program
DX: K74.60 Unspecified cirrhosis of liver (principal)

== ENCOUNTER → 2021-04-11 | Outpatient (CLI) | payer OTHER | LOC: M LABSMTC 11:12 | PROVIDERS: ATTEND Anesthesiology | DX: Z01.818 Encounter for other preprocedural examination (principal); Z11.52 Encounter for screening for COVID-19 ==

== ENCOUNTER → 2021-04-13 | Outpatient (CLI) | payer OTHER ==
[~2021-04-13] MED LIST changes: +AMOX875T2 PO; +CYCL-707 PO
[2021-04-13 10:34] VITALS: BP 134/61
--- NOTE | 2021-04-13 12:15 | REP ---
INDICATION: ASCITES. COMPARISON: None. TECHNIQUE: Four quadrant ultrasound to assess for ascites FINDINGS: A small to moderate amount of free fluid is seen in the right and left lower quadrants. IMPRESSION: As above <Electronically signed by Vinicius Smith > 04/13/21 7814
== END ==
LOC: M IRPRO 10:25
PROVIDERS: ATTEND Internal Medicine Gastroenterology
DX: R18.8 Other ascites (principal)

== ENCOUNTER → 2021-04-13 | Outpatient (CLI) | payer OTHER ==
[~2021-04-13] MED LIST changes: -CYCL-707 PO
--- NOTE | 2021-04-13 12:11 | REP ---
INDICATION: SWELLING OF ABDOMINAL WALL. COMPARISON: None. TECHNIQUE: Real-time sonographic evaluation of the right lower quadrant anterior abdominal wall over a palpable mass FINDINGS: There are no cystic or solid masses IMPRESSION: A negative ultrasound examination does not obviate further anatomical imaging with modalities such as contrast-enhanced CT or contrast-enhanced MRI which should be considered if clinically relevant. <Electronically signed by Vinicius Smith > 04/13/21 7273
== END ==
LOC: M RAD 10:21
PROVIDERS: ATTEND Student in an Organized Health Care Education/Training Program
DX: R19.00 Intra-abdominal and pelvic swelling, mass and lump, unspecified site (principal)

== ENCOUNTER 2021-04-15 12:40 | Day surgery (SDC) | payer OTHER ==
[~2021-04-15] VITALS: Ht 167.6 cm; Wt 102.4 kg
[~2021-04-15 12:40] MED LIST changes: -AMOX875T2 PO; +NS 1,000 ML IV ONE
--- OUTSIDE RECORDS SUMMARY | 2021-04-15 12:46 | CCD ---
Author Author [facility] Organization [facility] Address Unknown Phone Unavailable Care Team Providers Care Cuff Folder Name Role Phone Kasey Keane Unavailable PROBLEMS Type Condition ICD9-CM Code REL03-BP Code Onset Dates Condition S tatus W/U Status Risk SNOMED Code Notes Problem Other allergic rhinitis J30.89 Active confirmed 99387644 Problem Osteoarthritis of right shoulder, unspecified os teoarthritis type M19.011 Active confirmed 09817249 Problem Morbid (severe) obesity due to excess calories E66 .01 Active confirmed 748271420 Problem Type 2 diabetes mellitus without complications E11 .9 Active confirmed 012642111 Problem Chronic fatigue R53.82 Active confirmed 5270 2003 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 Active conf irmed 976939267 Problem Other chronic pain G89.29 Active confirmed 8 3944314 Problem Chronic pain due to trauma G89.21 Active confirmed 801768105 Problem Iron deficiency anemia, unspecified iron deficiency D50.9 Active confirmed 66069918 Problem Obstructive sleep apnea G47.33 Active confirmed 68539992 Problem Gastroesophageal reflux disease without esophagitis K21.9 Active confirmed 607874227 Problem Essential hypertension I10 Active confirmed 10901414 Problem Hyperlipidemia, unspecified hyperlipidemia E78.5 Active confirmed 65235159 Problem Dysmenorrhea N94.6 Active confirmed 0738611 00 Problem Type 2 diabetes mellitus wit hout complication, unspecified whether manager speech insulin use E11.9 Active confirmed 610023425 Problem Diabetic autonomic neuropathy associated with type 2 diabetes mellitus E11.43 Active confirmed 169607750 Problem Major depressive disorder, single episode, unspecified F32.9 Active confirmed 99578149 Problem History of hysterectomy Z90.710 Active confirmed 898665499 Problem Depression, unspecified depression type F32.9 Active confirmed 77102088 Problem Major depressive disorder, recurrent, moderate F33 .1 Active confirmed 121337880 Problem Generalized anxiety disorder F41.1 Active confirme d 10463111 Problem correction (current) use of insulin Z79.4 Activ e confirmed 019289423 Problem Type 2 diabetes mellitus with other diabetic kid soren complication E11.29 Active confirmed 30404044 Problem Diabetic polyneuropathy associated with type 2 d iabetes mellitus E11.42 Active confirmed 099436542 Problem Uncontrolled type 2 diabetes mellitus with insulin therapy E11.65 Active confirmed 707487547437471 Problem Vitamin D deficiency E55.9 Active confirmed 35449654 Problem Unspecified cirrhosis of liver K74.60 Active confir med 27033289 Problem Thrombocytopenia D69.6 Active confirmed 415 191365 Problem Other cirrhosis of liver K74.69 Active confirmed 73583030 Problem Gastroparesis K31.84 Active confirmed 766891 006 Problem Other ascites R18.8 Active confirmed 257105 000 Problem Nonalcoholic steatohepatitis ([place]) K75.81 Acti ve confirmed 808371000 Problem Insomnia, unspecified type G47.00 Active confirmed 070965817 ALLERGIES Allergen (clinical drug ingredient) Drug/Non Drug Allergy do cumented on EMR Reaction Allergy Type Onset Date Status hospital bracelets Rash Non Drug Allergy Active Adhesive Bandages Rash Drug Allergy Activ e ENCOUNTERS from 1965 to 2021-04-11 Encounter Location Date Provider Diagnosis [facility] [place]ident [address] [address] [phone] [place] [address] 09 Jan, 2021 Kasey Movsesian Tachycardia R00.0 an d Uncontrolled type 2 diabetes mellitus with hyperglycemia E11.65 IMMUNIZATIONS Vaccine Route Administration Date Status Influenza 18 yrs & older Flublok IM Intramuscular May 06, 2020 Administered Influenza 18 yrs & older Flublok IM Intramuscular Apr 05, 2018 Administered Hepatitis B 0.5mL HEPLISAV-B IM Intramuscular December 22, 2020 Ad ministered Hepatitis B 0.5mL HEPLISAV-B IM Intramuscular December 07, 2020 Ad ministered Pneumococcal Adult 0.5mL Pneumovax 23 IM Intramuscular Apr 05 018 Administered Influenza 6mo & up Fluzone IM Intramuscular Apr 06, 2016 Admi nistered SOCIAL HISTORY Tobacco Use: Social History Observation Description Date Details (start date - stop date) Never Smoker Sex Assigned At : Social History Observation Description Sex Assigned At Unknown Audit Question Answer Notes Total Score: 0 Interpretation: Alcohol Education Language: Question Answer Notes Languages spoken: Panamanian Faith: Question Answer Notes Faith 34 None Sexual Hx: Question Answer Notes [...] never smoker never smoker REASON FOR REFERRAL from 1965 to 2021-04-11 Reason Diabetes nutrition education Diagnosis 1 Uncontrolled type 2 diabetes mellitus with hyperglycemia (E11.65) Referral Organization [facility] GME Resident Referring Provider First Name Kasey Referring Provider Last Name Lakhwinder Referring Provider Specialty Internal Medicine Referred Organization [facility] Ignacio Referred Provider Radha Jha Referred Address [address] [place] [id number] [place] [phone] Referred Provider Specialty Nutrition Referral Priority Stat General Notes Alberta Aleman 01/31/2021 2:4 2:27 PM > sent p2p VITAL SIGNS Weight 219.0 lbs Jan, Weight-kg 99.34 kg Jan, Height 68 in Jan, BMI 33.30 kg/m2 Jan, Heart Rate 110 /min Jan, Respiratory Rate 18 /min Jan, Temperature 99.2 degrees Fahrenheit Jan, Oximetry 97 Jan, Blood pressure systolic 140 mm Hg Jan, Blood pressure diastolic 70 mm Hg Jan, MEDICATIONS Medication SIG (Take, Route, Frequency, Duration) Notes Start Da te End Date Status DULoxetine HCl 60 MG 1 capsule Orally Once a day for 30 day(s) Apr, Active Lancets - as directed for 30 days Jan, Active Blood Pressure Kit - Dx l10 arm twice daily Jun, Active Ferrous Sulfate 325 (65 Fe) MG 1 tablet Orally Once a day for 30 days Active busPIRone HCl 10 MG 1 tab orally twice daily Active Spironolactone 50 MG 1 tablet Orally twice a day for 60 day(s) Dec, Active Omeprazole 40 MG TAKE ONE CAPSULE BY MOUTH TWICE A DAY for 30 Active Cyclobenzaprine HCl 5 MG 1 tablet at bedtime as neede d Orally Once a day for 30 day(s) Mar, Active Constulose 10 GM/15ML 15 ml Orally Once a day for 30 day(s) Not-Taking Claritin-D 24 Hour 10-240 MG 1 tablet as needed Orally Once a da y for 30 days Active Basaglar KwikPen 100 UNIT/ML as directed Subcutaneous 70 units in the am and 90 units in the pm for 30 days Acti ve Meclizine HCl 25 mg take two tablets by mouth every day orally bid Active Vitamin E 1000 UNIT 1 capsule Orally Once a day for 90 day(s) Nov, Active Metoclopramide HCl 10 MG 1 tablet before meals Orally Twice a day for 30 Active metFORMIN HCl 1000 MG 1 tablet with meals Orally Twice a day for 30 Active Actos 30 MG 1 tablet Orally Once a day for 30 Active Torsemide 10 MG 1 tablet Orally Once a day for 30 day(s) Active Docusate Sodium 100 MG TAKE ONE CAPSULE BY MOUTH EV CIPRIANO DAY NEEDED Orally Once a day for 30 Active Steglatro 5 MG 1 tablet Orally Once a day for 30 Active Wheelchair - as directed electric wheelch air for chronic deconditioning and E66.01 and R53.82. 13 Dec, 2020 Active Admelog 100 UNIT/ML 20 units Subcutaneous before dinner Active One touch ultra blue _ as directed intradermally 3 - 5 x/day for 20 Active Nortriptyline HCl 25 MG 1 capsule Orally once daily at bedtime for 90 days Active Pen [place] 31G X 6 MM icd: e11.65 for use with ins ulin pens - DX Z79.4 four times daily for 30 day(s) Apr, Active Insulin Syringe insulin syringe icd:250.02 iddm subcut aneously twice daily for 30 Active Atorvastatin Calcium 80 MG 1 tablet Orally Once a day for 30 Active PROCEDURES No Information RESULTS Component Value Reference Range Fingerstick blood sugar Reviewed date:01/31/2021 15:00:09 Interpretation: Performing Lab:[facility], [place] [address] Glucose 558 70 - 106 mg/dl REASON FOR VISIT ER F/U BLOOD SUGAR MEDICAL (GENERAL) HISTORY Type Description Date Medical [...] Notes Treatment Notes Treatm ent Clinical Notes Jan, Tachycardia (ICD-10 - R00.0) EKG shows sinus tachycardia. May be related to the patients hyperglycemia today. Discussed if she develops chest pain, shortness of breath, or palpitations she should report to the ED for evaluation. Jan, Uncontrolled type 2 diabetes mellitus with hyperglycemia (ICD-10 - E11.65) I have increased the patient's insulin regimen today for better control. She will now take 10 units of short acting coverage with breakfast and lunch. She will also continue to take the 20 units with dinner. For her long acting, she will take 80 units in the AM and 80 units in the PM. We did discuss diet changes today as well. The patient agrees to keep a food log to help her track what she is eating so that we can review and help her adjust to a consistent carb diet. PLAN OF TREATMENT Medication Medication Name Sig Start Date Stop Date Vitamin E 1000 UNIT 1 capsule Orally Once a day for 90 day(s) Nov, Nortriptyline HCl 25 MG 1 capsule Orally once daily at bedtime f or 90 days Cyclobenzaprine HCl 5 MG 1 tablet at bedtime as neede d Orally Once a day for 30 day(s) Mar, Treatment Notes Assessment Notes Clinical Notes Tachycardia EKG shows sinus tach ycardia. May be related to the patients hyperglycemia today. Discussed if she develops chest pain, shortness of breath, or palpitations she should report to the ED for evaluation. Uncontrolled type 2 diabetes mellitus with hyperglycemia I have increased the patient's insulin regimen today for better control. She will now take 10 units of short acting coverage with breakfast and lunch. She will also continue to take the 20 units with dinner. For her long acting, she will take 80 units in the AM and 80 units in the PM. We did discuss diet changes today as well. The patient agrees to keep a food log to help her track what she is eating so that we can review and help her adjust to a consistent carb diet. Treatment Notes Test Name Order Date ELECTROCARDIOGRAM, COMPLETE EKG 2021-01-31 Referrals Referral Date Details Diabetes nutrition education , Radha Jha, [address] [place] [address], [phone], Next Appt Details 1 Weeks Reason:f/u hyperglycemia Provider Name:Kasey Keane, 2020-06 03:00:00 PM, [address] [place] [address], , [place], [address], Provider Name:Radha Jha, 2021-04-2 2 01:00:00 PM, [address] [place] [address], , [place], [phone], Follow Up:1 Weeksf/u hyperglycemia Insurance Providers Payer Name Payer Address Payer Phone Insured Name Patient Relati onship to Insured Coverage Start Date Coverage End Date [facility] [employer] [facility] [address] [facility] [phone] RUSSELL HUGHES self
--- OUTSIDE RECORDS SUMMARY | 2021-04-15 12:46 | CCD ---
Author Author [facility] Organization [facility] Address Unknown Phone Unavailable Care Team Providers Care Label Operator Name Role Phone Kasey Keane Unavailable PROBLEMS Type Condition ICD9-CM Code [id number] Code Onset Dates Condition S tatus W/U Status Risk SNOMED Code Notes Problem Morbid (severe) obesity due to excess calories E66 .01 Active confirmed 656598843 Problem Suspected sleep apnea G47.30 Active confirmed 53859156 Problem Osteoarthritis of right shoulder, unspecified os teoarthritis type M19.011 Active confirmed 61016966 Problem TSH (thyroid-stimulating hormone deficiency) E03.8 Active confirmed 90990515 Problem Chronic fatigue R53.82 Active confirmed 5270 2003 Problem FPC (current) use of insulin Z79.4 Activ e confirmed 530742391 Problem Gastroesophageal reflux disease without esophagitis K21.9 Active confirmed 176880772 Problem Type 2 diabetes mellitus with other diabetic kid soren complication E11.29 Active confirmed 82836037 Problem Hyperlipidemia, unspecified hyperlipidemia E78.5 Active confirmed 16344564 Problem Essential hypertension I10 Active confirmed 45820726 Problem Symptomatic menopausal or female climacteric states N95.1 Active confirmed 38367946 Problem Irregular menstrual bleeding N92.6 Active confirme d 46734469 Problem Anxiety F41.9 Active confirmed 06047961 Problem Type 2 diabetes mellitus wit hout complication, without long-term current use of insulin E11.9 Active confirmed 337610657 Problem Globus sensation F45.8 Active confirmed 888 04008 Problem Dysphagia, unspecified type R13.10 Active confirmed 97537190 Problem Iron deficiency anemia, unspecified iron deficiency an emia type D50.9 Active confirmed 26585905 Problem Thrombocytopenia D69.6 Active confirmed 415 954948 Problem Other iron deficiency anemia D50.8 Active confirme d 94942833 Problem Other chronic pain G89.29 Active confirmed 8 1355032 Problem Sleep apnea, unspecified type G47.30 Active confirm ed 49055621 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 Active conf irmed 268805080 Problem Type 2 diabetes mellitus without complications E11 .9 Active confirmed 117451041 Problem Pancytopenia D61.818 Active confirmed 954734 005 Problem Fatty liver K76.0 Active confirmed 66040576 7 Problem Other cirrhosis of liver K74.69 Active confirmed 38238836 Problem Vitamin D deficiency E55.9 Active confirmed 16352423 Problem Dysmenorrhea N94.6 Active confirmed 8485854 00 Problem Type 2 diabetes mellitus wit hout complication, unspecified whether fci insulin use E11.9 Active confirmed 620825788 Problem Major depressive disorder, single episode, unspecified F32.9 Active confirmed 43558284 Problem Excessive and frequent menstruation with regular cycle N92.0 Active confirmed 782572143 Problem Cirrhosis of liver without ascites, unsp ecified hepatic cirrhosis type K74.60 Active confirmed 23952201 Problem 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 Active confirmed 26 1875126 Problem Environmental allergies Z91.09 Active confirmed 071394241 Problem Vaginal bleeding N93.9 Active confirmed 289 396613 Problem Generalized anxiety disorder F41.1 Active confirme d 14543468 Problem History of hysterectomy Z90.710 Active confirmed 850514191 Problem Gross hematuria R31.0 Active confirmed 1979 92625 Problem Major depressive disorder, recurrent, moderate F33 .1 Active confirmed 803981467 Problem Neuropathy G62.9 Active confirmed 506256663 Problem Proteinuria R80.9 Active confirmed 94763355 Problem Urinary tract infection, site not specified N39.0 Active confirmed 85176697 Problem Diabetic peripheral neuropathy associate d with type 2 diabetes mellitus E11.42 Active confirmed 9426258784032 Problem Chronic pain due to trauma G89.21 Active confirmed 068017433 Problem Iron deficiency anemia, unspecified iron deficiency D50.9 Active confirmed 26530740 Problem Obstructive sleep apnea G47.33 Active confirmed 67466439 Problem Other allergic rhinitis J30.89 Active confirmed 18574893 Problem Burning sensation of feet R20.8 Active confirmed 14821365 Problem Diabetic polyneuropathy associated with type 2 d iabetes mellitus E11.42 Active confirmed 618940177 Problem History of anemia Z86.2 Active confirmed 27 3101095 Problem Uncontrolled type 2 diabetes mellitus with insulin therapy E11.65 Active confirmed 599612590200921 Problem Depression, unspecified depression type F32.9 Active confirmed 82126076 Problem Unspecified cirrhosis of liver K74.60 Active confir med 62511977 Problem Diabetic autonomic neuropathy associated with type 2 diabetes mellitus E11.43 Active confirmed 588328378 Problem Iron deficiency anemia, unspecified D50.9 Acti ve confirmed 56246085 Problem Gastroparesis K31.84 Active confirmed 432465 006 Problem Other ascites R18.8 Active confirmed 679924 000 Problem Nonalcoholic steatohepatitis (SÁNCHEZ) K75.81 Acti ve confirmed 548973249 Problem Insomnia, unspecified type G47.00 Active confirmed 375814065 ALLERGIES Allergen (clinical drug ingredient) Drug/Non Drug Allergy do cumented on EMR Reaction Allergy Type Onset Date Status hospital bracelets Rash Non Drug Allergy Active Adhesive Bandages Rash Drug Allergy Activ e ENCOUNTERS from 1966 to 2021-03-31 Encounter Location Date Provider Diagnosis [place] [address] [facility] [phone] [place] [address] Mar, Kasey Movsesian IMMUNIZATIONS Vaccine Route Administration Date Status Influenza [...] Education Language: Question Answer Notes Languages spoken: Danish Zoroastrian: Question Answer Notes Zoroastrian 33 None Sexual Hx: Question Answer Notes [...] Notes Start Da te End Date Status Actos 30 MG 1 tablet Orally Once a day for 30 Active Aspir-81 81 MG 1 tablet Orally Once a day duplicate Not-Taking Basaglar KwikPen 100 UNIT/ML as directed Subcutaneous 70 units in the am and 90 units in the pm for 30 days Acti ve Metoclopramide HCl 10 MG 1 tablet before meals Orally Twice a day for 30 Active Toujeo SoloStar Pens 450 U/1.5mL as directed subcutane ously 90 units in the morning, 90 units at night Apr, Not-T aking Trulicity 0.75 MG/0.5ML 0.5 ml Subcutaneous weekly for 15 Not-Taking Meclizine HCl 25 mg take two tablets by mouth every day orally bid Active Steglatro 5 MG 1 tablet Orally Once a day for 30 Active FreeStyle Ralph 14 Day [place] - 1 PER YEAR for 1 Active HumaLOG 100 UNIT/ML 20 units Subcutaneous before dinner for 30 day(s) please dispense amount necessary for 20 units nightly, unsure what to put in the May, Not-Taking Lisinopril 10 MG 1 tablet Orally Once a day for 30 Not-Taking Gabapentin 600 MG 1 tablet Orally three times daily for 30 day(s ) Jan, Not-Taking metFORMIN HCl 1000 MG 1 tablet with meals Orally Twice a day for 30 Active Gabapentin 400 MG 1 capsule Orally Three times a day for 30 day( s) Mar, Not-Taking hydroCHLOROthiazide 12.5 MG 1 tablet Orally Once a day for 30 Not-Taking DULoxetine HCl 20 MG 1 capsule Orally Once a day for 7 day(s) October, Not-Taking BuSpar 10 mg 1 tablet Orally Twice a day for 1 month 2014 Active IBU 800 MG 1 tablet Orally Three times a day as needed for 30 Not-Taking Nortriptyline HCl 25 MG 1 capsule Orally once daily at bedtime for 30 Active FreeStyle Ralph 14 Day Sensor - use as directed for co ntinous glucose monitoring continuous for 28 day(s) Mar, Active Ferrous Sulfate 325 (65 Fe) MG 1 tablet Orally Once a day for 30 days Active Lancets - as directed for 30 days Jan, Active Wheelchair - as directed electric wheelch air for chronic deconditioning and E66.01 and R53.82. 13 Dec, 2020 Active Blood Pressure Kit - Dx l10 arm twice daily Jun, Active diphenhydrAMINE HCl 25 MG 1 capsule at bedtime as need ed Orally Once a day for 30 day(s) Feb, Active One touch ultra blue _ as directed intradermally 3 - 5 x/day for 20 Active Deblitane 0.35 MG 1 tablet Orally Once a day Not-Taking tiZANidine HCl 4 MG TAKE ONE TABLET BY MOUTH AT BEDTIME NEEDED FOR SPASMS Oral for 30 Active Mobic 7.5 MG 1 tablet Orally twice daily as needed Apr, Not-Taking hydrOXYzine HCl 50 MG 1 tablet Orally 1 for 1 dose(s) 2017 Active Atorvastatin Calcium 80 MG 1 tablet Orally Once a day for 30 Active Docusate Sodium 100 MG TAKE ONE CAPSULE BY MOUTH EV CIPRIANO DAY NEEDED Orally Once a day for 30 Active FreeStyle Ralph 14 Day [place] - use as directed for co ntinuous glucose monitoirng continuous Daily for 28 day(s) Mar, Active Claritin-D 24 Hour 10-240 MG 1 tablet as needed Orally Once a da y for 30 days Active Insulin Syringe insulin syringe icd:250.02 iddm subcut aneously twice daily for 30 Active Flonase 50 MCG/ACT 1 spray in each nostril Nasally Once a day for 31 Not-Taking Vitamin E 1000 UNIT 1 capsule Orally Once a day for 30 day(s) Nov, Active busPIRone HCl 10 MG 1 tab orally twice daily Active Aspirin 81 81 MG 1 tablet Orally Once a day for 30 Not-Taking Mucinex 600 MG 1 tablet as needed Orally Daily for 30 day(s) May, Not-Taking Pen [place] 31G X 6 MM icd: e11.65 for use with ins ulin pens - DX Z79.4 four times daily for 30 day(s) Apr, Active FreeStyle Ralph 14 Day Sensor - CHANGE EVERY 14 DAYS for 14 Active DULoxetine HCl 60 MG 1 capsule Orally Once a day for 30 day(s) Apr, Active Omeprazole 40 MG TAKE ONE CAPSULE BY MOUTH TWICE A DAY for 30 Active SUMAtriptan Succinate 25 MG 1 tablet as needed one erika e, repeat if no relief in 2 hours Orally Once a day Jul, Not-Ta harvinder Admelog 100 UNIT/ML 20 units Subcutaneous before dinner Active Lasix 20 MG 2 tablet Orally Once a day Active traMADol HCl 50 MG 1 tablet as needed Orally BIDPRN MDD: 2 for 2 8 days Jan, Active Spironolactone 50 MG 1 tablet Orally twice a day duplicate Nov, 021 Not-Taking traMADol HCl 50 MG 2 tablets as needed Orally Once a day for 7 d ays duplicate Nov, Not-Taking Lisinopril 10 10 mg 1 tablet orally Once a day for 30 duplicate Not-Taking Zantac 150 MG 1 tab Orally Twice a day for 30 Not-Taking Cetirizine HCl 5 MG 1 tablet Orally Once a day for 30 Not-Taking Lasix 40 MG 1 tablet Orally twice a day Dec, Active Spironolactone 50 MG 1 tablet Orally twice a day for 60 day(s) Dec, Active PROCEDURES No Information RESULTS No Results REASON FOR VISIT meds not working MEDICAL (GENERAL) HISTORY Type Description Date Medical [...] Medication Name Sig Start Date Stop Date Basaglar KwikPen 100 UNIT/ML as directed Subcutaneous 70 units in the am and 90 units in the pm for 30 days metFORMIN HCl 1000 MG 1 tablet with meals Orally Twice a day for 30 diphenhydrAMINE HCl 25 MG 1 capsule at bedtime as need ed Orally Once a day for 30 day(s) Feb, Next Appt Details Provider Name:Kasey Harrishimanshu, 2020-06 0-08 01:45:00 PM, [address] [place] [address], , [place], [address], Provider Name:Radha Jha, 2021-03-25 8 01:00:00 PM, [address] [place] [address], , [place], [address], Insurance Providers Payer Name Payer Address Payer Phone Insured Name Patient Relati onship to Insured Coverage Start Date Coverage End Date COUNTS INCLUDE [facility] BEDS AT [facility] COMMUNITY PLAN [facility] [address] [facility] [address] RUSSELL HUGHES self
--- OUTSIDE RECORDS SUMMARY | 2021-04-15 12:46 | CCD ---
Author Author [facility] Organization [facility] Address Unknown Phone Unavailable Care Team Providers Care Ibm Mainframe Developer Name Role Phone Kasey Keane Unavailable PROBLEMS Type Condition ICD9-CM Code KHI34-QS Code Onset Dates Condition S tatus W/U Status Risk SNOMED Code Notes Problem Other allergic rhinitis J30.89 Active confirmed 11224212 Problem Osteoarthritis of right shoulder, unspecified os teoarthritis type M19.011 Active confirmed 82457619 Problem Morbid (severe) obesity due to excess calories E66 .01 Active confirmed 463308868 Problem Type 2 diabetes mellitus without complications E11 .9 Active confirmed 015940244 Problem Chronic fatigue R53.82 Active confirmed 5270 2003 Problem 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.4 Active conf irmed 536871159 Problem Other chronic pain G89.29 Active confirmed 8 5015770 Problem Chronic pain due to trauma G89.21 Active confirmed 282136950 Problem Iron deficiency anemia, unspecified iron deficiency D50.9 Active confirmed 61010231 Problem Obstructive sleep apnea G47.33 Active confirmed 06500026 Problem Gastroesophageal reflux disease without esophagitis K21.9 Active confirmed 973158625 Problem Essential hypertension I10 Active confirmed 17497779 Problem Hyperlipidemia, unspecified hyperlipidemia E78.5 Active confirmed 59002410 Problem Dysmenorrhea N94.6 Active confirmed 7778340 00 Problem Type 2 diabetes mellitus wit hout complication, unspecified whether terminal supervisor insulin use E11.9 Active confirmed 378693407 Problem Diabetic autonomic neuropathy associated with type 2 diabetes mellitus E11.43 Active confirmed 155853790 Problem Major depressive disorder, single episode, unspecified F32.9 Active confirmed 47752065 Problem History of hysterectomy Z90.710 Active confirmed 624077480 Problem Depression, unspecified depression type F32.9 Active confirmed 06929824 Problem Major depressive disorder, recurrent, moderate F33 .1 Active confirmed 722506091 Problem Generalized anxiety disorder F41.1 Active confirme d 57496088 Problem jail (current) use of insulin Z79.4 Activ e confirmed 974548271 Problem Type 2 diabetes mellitus with other diabetic kid soren complication E11.29 Active confirmed 66203771 Problem Diabetic polyneuropathy associated with type 2 d iabetes mellitus E11.42 Active confirmed 976850632 Problem Uncontrolled type 2 diabetes mellitus with insulin therapy E11.65 Active confirmed 201639639627204 Problem Vitamin D deficiency E55.9 Active confirmed 00367496 Problem Unspecified cirrhosis of liver K74.60 Active confir med 28571754 Problem Thrombocytopenia D69.6 Active confirmed 415 089928 Problem Other cirrhosis of liver K74.69 Active confirmed 94097629 Problem Gastroparesis K31.84 Active confirmed 825343 006 Problem Other ascites R18.8 Active confirmed 345604 000 Problem Nonalcoholic steatohepatitis (SÁNCHEZ) K75.81 Acti ve confirmed 803433475 Problem Insomnia, unspecified type G47.00 Active confirmed 102115051 ALLERGIES Allergen (clinical drug ingredient) Drug/Non Drug Allergy do cumented on EMR Reaction Allergy Type Onset Date Status hospital bracelets Rash Non Drug Allergy Active Adhesive Bandages Rash Drug Allergy Activ e ENCOUNTERS from 1966 to 2021-04-14 Encounter Location Date Provider Diagnosis [address] [phone] [place] [address] Mar, Kasey Keane IMMUNIZATIONS Vaccine Route Administration Date Status Influenza [...] Education Language: Question Answer Notes Languages spoken: Polish Gnosticism: Question Answer Notes Gnosticism 33 None Sexual Hx: Question Answer Notes [...] at bedtime for 90 days Active Pen [place] 31G X 6 MM icd: e11.65 for use with ins ulin pens - DX Z79.4 four times daily for 30 day(s) Apr, Active Insulin Syringe insulin syringe icd:250.02 iddm subcut aneously twice daily for 30 Active Atorvastatin Calcium 80 MG 1 tablet Orally Once a day for 30 Active PROCEDURES No Information RESULTS No Results REASON FOR VISIT testing? MEDICAL (GENERAL) HISTORY Type Description Date Medical [...] Once a day for 30 day(s) Mar, Next Appt Details Provider Name:Kasey Keane, 2020-06 03:00:00 PM, [address] [facility], , [place], [address], Provider Name:Radha Jha, 2020-11-2 2 01:00:00 PM, [address] [facility], , [place], [address], Insurance Providers Payer Name Payer Address Payer Phone Insured Name Patient Relati onship to Insured Coverage Start Date Coverage End Date [facility] [address] [facility] [phone] RUSSELL HUGHES self
--- OUTSIDE RECORDS SUMMARY | 2021-04-15 12:46 | CCD ---
Author Author [facility] Organization [facility] Address Unknown Phone Unavailable Care Team Providers Care Newspaper Clipper Name Role Phone Kasey Keane Unavailable PROBLEMS Type Condition ICD9-CM Code [id number] Code Onset Dates Condition S tatus W/U Status Risk SNOMED Code Notes Problem Morbid (severe) obesity due to excess calories E66 .01 Active confirmed 568350460 Problem Suspected sleep apnea G47.30 Active confirmed 11628423 Problem Osteoarthritis of right shoulder, unspecified os teoarthritis type M19.011 Active confirmed 32735264 Problem TSH (thyroid-stimulating hormone deficiency) E03.8 Active confirmed 31873759 Problem Chronic fatigue R53.82 Active confirmed 5270 2003 Problem MCC (current) use of insulin Z79.4 Activ e confirmed 360618844 Problem Gastroesophageal reflux disease without esophagitis K21.9 Active confirmed 479457408 Problem Type 2 diabetes mellitus with other diabetic kid soren complication E11.29 Active confirmed 51943145 Problem Hyperlipidemia, unspecified hyperlipidemia E78.5 Active confirmed 40286414 Problem Essential hypertension I10 Active confirmed 05439148 Problem Symptomatic menopausal or female climacteric states N95.1 Active confirmed 72573227 Problem Irregular menstrual bleeding N92.6 Active confirme d 87899429 Problem Anxiety F41.9 Active confirmed 97830236 Problem Type 2 diabetes mellitus wit hout complication, without long-term current use of insulin E11.9 Active confirmed 833143565 Problem Globus sensation F45.8 Active confirmed 888 64162 Problem Dysphagia, unspecified type R13.10 Active confirmed 37983825 Problem Iron deficiency anemia, unspecified iron deficiency an emia type D50.9 Active confirmed 75931114 Problem Thrombocytopenia D69.6 Active confirmed 415 307857 Problem Other iron deficiency anemia D50.8 Active confirme d 43720483 Problem Other chronic pain G89.29 Active confirmed 8 7631975 Problem Sleep apnea, unspecified type G47.30 Active confirm ed 61984202 Problem 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.4 Active conf irmed 174269922 Problem Type 2 diabetes mellitus without complications E11 .9 Active confirmed 520840936 Problem Pancytopenia D61.818 Active confirmed 309499 005 Problem Fatty liver K76.0 Active confirmed 37403883 7 Problem Other cirrhosis of liver K74.69 Active confirmed 95557624 Problem Vitamin D deficiency E55.9 Active confirmed 32868857 Problem Dysmenorrhea N94.6 Active confirmed 6899086 00 Problem Type 2 diabetes mellitus wit hout complication, unspecified whether nursing home insulin use E11.9 Active confirmed 858180758 Problem Major depressive disorder, single episode, unspecified F32.9 Active confirmed 78117549 Problem Excessive and frequent menstruation with regular cycle N92.0 Active confirmed 642217285 Problem Cirrhosis of liver without ascites, unsp ecified hepatic cirrhosis type K74.60 Active confirmed 57387613 Problem 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 Active confirmed 26 7459494 Problem Environmental allergies Z91.09 Active confirmed 493654638 Problem Vaginal bleeding N93.9 Active confirmed 289 717526 Problem Generalized anxiety disorder F41.1 Active confirme d 65140507 Problem History of hysterectomy Z90.710 Active confirmed 178282033 Problem Gross hematuria R31.0 Active confirmed 1979 32544 Problem Major depressive disorder, recurrent, moderate F33 .1 Active confirmed 511854915 Problem Neuropathy G62.9 Active confirmed 732341778 Problem Proteinuria R80.9 Active confirmed 96273582 Problem Urinary tract infection, site not specified N39.0 Active confirmed 00465005 Problem Diabetic peripheral neuropathy associate d with type 2 diabetes mellitus E11.42 Active confirmed 8541857718748 Problem Chronic pain due to trauma G89.21 Active confirmed 911030327 Problem Iron deficiency anemia, unspecified iron deficiency D50.9 Active confirmed 03922244 Problem Obstructive sleep apnea G47.33 Active confirmed 05217615 Problem Other allergic rhinitis J30.89 Active confirmed 38967285 Problem Burning sensation of feet R20.8 Active confirmed 42435892 Problem Diabetic polyneuropathy associated with type 2 d iabetes mellitus E11.42 Active confirmed 666678545 Problem History of anemia Z86.2 Active confirmed 27 9568631 Problem Uncontrolled type 2 diabetes mellitus with insulin therapy E11.65 Active confirmed 816968251481207 Problem Depression, unspecified depression type F32.9 Active confirmed 91380281 Problem Unspecified cirrhosis of liver K74.60 Active confir med 41762608 Problem Diabetic autonomic neuropathy associated with type 2 diabetes mellitus E11.43 Active confirmed 779823104 Problem Iron deficiency anemia, unspecified D50.9 Acti ve confirmed 63820330 Problem Gastroparesis K31.84 Active confirmed 732473 006 Problem Other ascites R18.8 Active confirmed 294243 000 Problem Nonalcoholic steatohepatitis (SÁNCHEZ) K75.81 Acti ve confirmed 606315732 Problem Insomnia, unspecified type G47.00 Active confirmed 950667298 ALLERGIES Allergen (clinical drug ingredient) Drug/Non Drug Allergy do cumented on EMR Reaction Allergy Type Onset Date Status hospital bracelets Rash Non Drug Allergy Active Adhesive Bandages Rash Drug Allergy Activ e ENCOUNTERS from 1965 to 2021-03-31 Encounter Location Date Provider Diagnosis [address] [phone] [place] [address] 07 Mar, 2021 Kasey Movsesian IMMUNIZATIONS Vaccine Route Administration Date [...] Education Language: Question Answer Notes Languages spoken: Kiswahili Synagogue: Question Answer Notes Synagogue 33 None Sexual Hx: Question Answer Notes [...] for 30 Active FreeStyle Ralph 14 Day [place] - 1 PER YEAR for 1 Active [...] for 30 Active FreeStyle Ralph 14 Day [place] - use as directed for co ntinuous [...] Daily for 30 day(s) May, Not-Taking Pen [place] 31G X 6 MM icd: e11.65 for [...] Information RESULTS No Results REASON FOR VISIT refill MEDICAL (GENERAL) HISTORY Type Description Date Medical [...] day(s) Feb, Next Appt Details Provider Name:Kasey Keane, 2020-06 0-08 01:45:00 PM, [address] [place] [address], , [place], [address], Provider Name:Radha Jha, 2021-03-25 8 01:00:00 PM, [address] [place] [address], , [place], [address], Insurance Providers Payer Name Payer Address Payer Phone Insured Name Patient Relati onship to Insured Coverage Start Date Coverage End Date [facility] COMMUNITY PLAN [facility] [address] [facility] [phone] RUSSELL HUGHES self
--- OUTSIDE RECORDS SUMMARY | 2021-04-15 12:46 | CCD ---
Author Author [facility] Organization [facility] Address Unknown Phone Unavailable Care Team Providers Care General Ledger Bookkeeper Name Role Phone Radha Jha Unavailable PROBLEMS Type Condition ICD9-CM Code UAI78-DU Code Onset Dates Condition S tatus W/U Status Risk SNOMED Code Notes Problem Morbid (severe) obesity due to excess calories E66 .01 Active confirmed 690941544 Problem Suspected sleep apnea G47.30 Active confirmed 17790288 Problem Osteoarthritis of right shoulder, unspecified os teoarthritis type M19.011 Active confirmed 09233223 Problem TSH (thyroid-stimulating hormone deficiency) E03.8 Active confirmed 66142316 Problem Chronic fatigue R53.82 Active confirmed 5270 2003 Problem technician terminal and repeater (current) use of insulin Z79.4 Activ e confirmed 314071560 Problem Gastroesophageal reflux disease without esophagitis K21.9 Active confirmed 592997989 Problem Type 2 diabetes mellitus with other diabetic kid soren complication E11.29 Active confirmed 13273696 Problem Hyperlipidemia, unspecified hyperlipidemia E78.5 Active confirmed 46844666 Problem Essential hypertension I10 Active confirmed 45109227 Problem Symptomatic menopausal or female climacteric states N95.1 Active confirmed 59003948 Problem Irregular menstrual bleeding N92.6 Active confirme d 43025582 Problem Anxiety F41.9 Active confirmed 23029298 Problem Type 2 diabetes mellitus wit hout complication, without long-term current use of insulin E11.9 Active confirmed 214851195 Problem Globus sensation F45.8 Active confirmed 888 03518 Problem Dysphagia, unspecified type R13.10 Active confirmed 97109488 Problem Iron deficiency anemia, unspecified iron deficiency an emia type D50.9 Active confirmed 52731117 Problem Thrombocytopenia D69.6 Active confirmed 415 725217 Problem Other iron deficiency anemia D50.8 Active confirme d 49576036 Problem Other chronic pain G89.29 Active confirmed 8 9553449 Problem Sleep apnea, unspecified type G47.30 Active confirm ed 23199748 Problem technician terminal and repeater current use of insulin Z79.4 Active conf irmed 861435033 Problem Type 2 diabetes mellitus without complications E11 .9 Active confirmed 729725650 Problem Pancytopenia D61.818 Active confirmed 996646 005 Problem Fatty liver K76.0 Active confirmed 46208514 7 Problem Other cirrhosis of liver K74.69 Active confirmed 16707226 Problem Vitamin D deficiency E55.9 Active confirmed 99717111 Problem Dysmenorrhea N94.6 Active confirmed 3011164 00 Problem Type 2 diabetes mellitus wit hout complication, unspecified whether long term acute care registered nurse insulin use E11.9 Active confirmed 329699188 Problem Major depressive disorder, single episode, unspecified F32.9 Active confirmed 56343587 Problem Excessive and frequent menstruation with regular cycle N92.0 Active confirmed 338730947 Problem Cirrhosis of liver without ascites, unsp ecified hepatic cirrhosis type K74.60 Active confirmed 72265313 Problem 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 Active confirmed 26 9450322 Problem Environmental allergies Z91.09 Active confirmed 825418464 Problem Vaginal bleeding N93.9 Active confirmed 289 406796 Problem Generalized anxiety disorder F41.1 Active confirme d 79315754 Problem History of hysterectomy Z90.710 Active confirmed 490363487 Problem Gross hematuria R31.0 Active confirmed 1979 29197 Problem Major depressive disorder, recurrent, moderate F33 .1 Active confirmed 466100635 Problem Neuropathy G62.9 Active confirmed 999153632 Problem Proteinuria R80.9 Active confirmed 41537091 Problem Urinary tract infection, site not specified N39.0 Active confirmed 88403394 Problem Diabetic peripheral neuropathy associate d with type 2 diabetes mellitus E11.42 Active confirmed 0825922275955 Problem Chronic pain due to trauma G89.21 Active confirmed 401852438 Problem Iron deficiency anemia, unspecified iron deficiency D50.9 Active confirmed 31592431 Problem Obstructive sleep apnea G47.33 Active confirmed 36602536 Problem Other allergic rhinitis J30.89 Active confirmed 83887745 Problem Burning sensation of feet R20.8 Active confirmed 87984872 Problem Diabetic polyneuropathy associated with type 2 d iabetes mellitus E11.42 Active confirmed 177931536 Problem History of anemia Z86.2 Active confirmed 27 4623701 Problem Uncontrolled type 2 diabetes mellitus with insulin therapy E11.65 Active confirmed 207736317111742 Problem Depression, unspecified depression type F32.9 Active confirmed 47236823 Problem Unspecified cirrhosis of liver K74.60 Active confir med 45664588 Problem Diabetic autonomic neuropathy associated with type 2 diabetes mellitus E11.43 Active confirmed 389267964 Problem Iron deficiency anemia, unspecified D50.9 Acti ve confirmed 57663212 Problem Gastroparesis K31.84 Active confirmed 224169 006 Problem Other ascites R18.8 Active confirmed 686224 000 Problem Nonalcoholic steatohepatitis (SÁNCHEZ) K75.81 Acti ve confirmed 228316962 Problem Insomnia, unspecified type G47.00 Active confirmed 921872467 ALLERGIES Allergen (clinical drug ingredient) Drug/Non Drug Allergy do cumented on EMR Reaction Allergy Type Onset Date Status hospital bracelets Rash Non Drug Allergy Active Adhesive Bandages Rash Drug Allergy Activ e ENCOUNTERS from 1966 to 2021-03-25 Encounter Location Date Provider Diagnosis [place] [id number] [facility] [phone] [place] [address] Feb, Radha Intorcia Uncontrolled type 2 diabetes mellitus with insulin therapy E11.65 IMMUNIZATIONS Vaccine Route Administration Date Status [...] Education Language: Question Answer Notes Languages spoken: Lao Denominational: Question Answer Notes Denominational 33 None Sexual Hx: Question Answer Notes [...] FOR REFERRAL No Information VITAL SIGNS Weight 216.4 lbs Feb, Weight-kg 98.16 kg Feb, Height 68 in Feb, BMI 32.90 kg/m2 Feb, MEDICATIONS Medication SIG (Take, Route, Frequency, Duration) Notes Start Da te End Date Status Actos 30 MG 1 tablet Orally Once a day for 30 Active Aspir-81 81 MG 1 tablet Orally Once a day duplicate Not-Taking hydrOXYzine HCl 50 MG 1 tablet Orally 1 for 1 dose(s) 2017 Active Metoclopramide HCl 10 MG 1 tablet before meals Orally Twice a day for 30 Active Toujeo SoloStar Pens 450 U/1.5mL as directed subcutane ously 90 units in the morning, 90 units at night Apr, Not-T aking Claritin-D 24 Hour 10-240 MG 1 tablet as needed Orally Once a da y for 30 days Active Insulin Syringe insulin syringe icd:250.02 iddm subcut aneously twice daily for 30 Active Steglatro 5 MG 1 tablet Orally Once a day for 30 Active FreeStyle Ralph 14 Day Luebbering - 1 PER YEAR for 1 Active busPIRone HCl 10 MG 1 tab orally twice daily Active Aspirin 81 81 MG 1 tablet Orally Once a day for 30 Not-Taking Gabapentin 600 MG 1 tablet Orally three times daily for 30 day(s ) Jan, Not-Taking metFORMIN HCl 1000 MG 1 tablet with meals Orally Twice a day for 30 Active Pen [place] 31G X 6 MM icd: e11.65 for use with ins ulin pens - DX Z79.4 four times daily for 30 day(s) Apr, Active diphenhydrAMINE HCl 25 MG 1 capsule at bedtime as need ed Orally Once a day for 30 day(s) Feb, Active DULoxetine HCl 20 MG 1 capsule Orally [...] E66.01 and R53.82. 13 Dec, 2020 Active Deblitane 0.35 MG 1 tablet Orally Once a day Not-Taking Blood Pressure Kit - Dx l10 arm twice daily Jun, Active Flonase 50 MCG/ACT 1 spray in each nostril Nasally Once a day for 31 Not-Taking One touch ultra blue _ as directed intradermally 3 - 5 x/day for 20 Active tiZANidine HCl 4 MG TAKE ONE TABLET BY MOUTH AT BEDTIME NEEDED FOR SPASMS Oral for 30 Active Mobic 7.5 MG 1 tablet Orally twice daily as needed Apr, Not-Taking Trulicity 0.75 MG/0.5ML 0.5 ml Subcutaneous weekly for 15 Not-Taking Meclizine HCl 25 mg take two tablets by mouth every day orally bid Active Docusate Sodium 100 MG TAKE ONE CAPSULE BY MOUTH EV DAY NEEDED Orally Once a day for 30 Active FreeStyle Ralph 14 Day Luebbering - use as directed for co ntinuous glucose monitoirng continuous Daily for 28 day(s) Mar, Active HumaLOG 100 UNIT/ML 20 units Subcutaneous before dinner for 30 day(s) please dispense amount necessary for 20 units nightly, unsure what to put in the May, Not-Taking Lisinopril 10 MG 1 tablet Orally Once a day for 30 Not-Taking Basaglar KwikPen 100 UNIT/ML as directed Subcutaneous 70 units in the am and 90 units in the pm for 10 Active Vitamin E 1000 UNIT 1 capsule Orally Once a day for 30 day(s) Nov, Active Gabapentin 400 MG 1 capsule Orally Three times a day for 30 day( s) Mar, Not-Taking hydroCHLOROthiazide 12.5 MG 1 tablet Orally Once a day for 30 Not-Taking Mucinex 600 MG 1 tablet as needed Orally Daily for 30 day(s) May, Not-Taking Lisinopril 10 10 mg 1 tablet orally Once a day for 30 duplicate Not-Taking FreeStyle Ralph 14 Day Sensor - [...] for 7 d ays duplicate Nov, Not-Taking Atorvastatin Calcium 80 MG 1 tablet Orally [...] Information RESULTS No Results REASON FOR VISIT Inital Medical Nutrition Therapy r/t E11.65 MEDICAL (GENERAL) HISTORY Type Description Date Medical [...] Notes Treatment Notes Treatm ent Clinical Notes Feb, Uncontrolled type 2 diabetes mellitus with insulin therapy (ICD-10 - E11.65) Feb, Other Food Allergies: NKFA Food Dislikes: peas, green beans, beets, peaches, plums, no pineapple or grapefruit due to meds, pomegranate REE= 1634 calories/day for weight loss 24 hour food recall: Breakfast: 8:30 am-home corn flakes with milk Lunch: 12:30pm-home grilled burger on bun w/ barbecue sauce-ate 06/26 Dinner: 0yd-euik-wcmqdn, banana Snacks: none noted Drinks: 16 oz milk with meds 2 timeas a day, Cele Coley 08/07/18-TSH-1.390,Free T4-1.05-wnl 08/18/2019-TG-88, chol-142, HDL-42, LDL-82-wnl 12/14/20 gluc-372^ Na-134v K-3.4v B/C/GFR-16/1.1/51.8v alb-2.7v Saurabh/Cr-495.8^ 02/07/21 A1c 12%^ EMPG 298 mg/dl^ 03/02/21- gluc-247^ Na/K+/CaGFR, Cr-wnl BUN-28^ Blood Glucose: PER PATIENT SHE ONLY NEEDED TO TEST BLOOD SUGAR IN AM ON SUNDAY AND SUNDAY!!! Pertinent Medications: Basaglar- 90 units am and 80 units pm per patient, admelog 10 units before breakfast and lunch-20 units before supper, actos 30 mg daily, steglatro 5 mg daily, metformin 1000 mg bid; omeprazole 40 mg 2 times daily, duloxetine 60 mg daily, Vit E 1000IU daily, atorvastatin 80 mg daily, meclizine 25 mg 2 times daily, buspirone-10 mg 2 times daily, Failed DM Medications: none noted Activity: wheel chair bound since liver disease per patient Eye Exam: [facility] 01/25/21 Foot Exam: recently per patient FLU shot: every year per patient Dental Visit: dentist is located next to [place]-to have all teeth extracted Nutrition Diagnosis: Inconsistent carbohydrate intake r/t nutrition knowledge deficit regarding appropriate amount of carbohydrate to consume and poor appetite, as evidenced by diabetes with elevated blood sugar levels, A1c of 12% 02/07/21, and 24 hour food recall. Nutrition Prescription: 1) Diet Education: Portion Plate Method for DM/Low Salt- NO REGULAR SODA 2) Goal Setting Patient will 3) Evidence of Learning: Difficulty 4) Expected Adherence: Unable to Determine 5) Barriers to Adherence: Financial Social Stress 6) Coordination/Care: PLEASE REFER TO AUGUSTUS MERCADO RN,[facility] COMMENTS: Patient referred to RD for initial MNT r/t recently Type 2 DM with hyperglycemia-insulin dependent x 23 years, DM for 25 years after diagnosed with gestational DM. A1c 12% 02/07/21. Patient verbalized she took 90 units of Basaglar each am and 80 units each evening. Patient also noted meghan Admelog 10 units before breakfast and lunch and 20 units before evening meal. Patient did not bring supplies r/t insulin today and educated to bring to next appointment so we can review proper technique. Per record also prescribed 30 mg actos, 5 mg steglatro, metformin 1000mg-2 times daily for DM. Last lipids were wnl 08/18/19 and continued with 80 mg atorvastatin daily. Other meds noted per above. Did not bring glucometer and educated to bring to each appointment. Reviewed 24 hour food recall. Reviewed portion plate method. Explained Non carb foods including: non-starchy vegetables, lean meat, and healthy fats in small amounts, helped to keep her full and avoid large fluctuation in blood sugar. Patient noted shakiness she experienced when her BS was 70-80. Reviewed proper treatment for ow blood sugar and patient has this handout. Next educated which food groups contained carbohydrate. Used food models to display appropriate portion sizes on an 8 inch plate to make a meal. Patient is not counting carbs at this time. Russell noted she is having paracentisis every week and per record noted 5100 ml fluid were removed 03/15/21. Also GFR noted at 55.7v n 01/17/21 with diagnosis of E11.29 so must monitor for need to reduce metformin. also need to monitor for need to reduce or d/c actos based on liver enzyme elevation. Will also monitor for need to supplement po intake with low albumin and poor appetite. Patient seemed to begin to understand diet instruction and has RDs contact information in case of questions. GOALS: I will improve my A1c to 7-8% by 07/25/21. 1) Eat 3 meals a day using portion plate method and write down everything I eat and drink. 2) Check BS every am with goal 80 to 130. 3) Change soda from regular to Zero which does not have carbohydrate. 4) If I feel funny I will check my blood sugar level. I will need to bring my monitor with me wherever I go and test. I must bring 1 Tbsp portions of sugar with me to treat my blood sugar. I will follow directions to get my blood sugar back within normal range. I will alert provider when I have a low blood sugar. 5) I will not eat foods high in salt. Monitor: _x_ Diet _x _WT _x__ Meds _x_ BS log __ Food Log __Activity PLAN OF TREATMENT Medication Medication Name Sig Start Date Stop Date diphenhydrAMINE HCl 25 MG 1 capsule at bedtime as need ed Orally Once a day for 30 day(s) Feb, metFORMIN HCl 1000 MG 1 tablet with meals Orally Twice a day for 30 Next Appt Details SunApr 11 2021 1-2pm Reason: Provider Name:Kasey Keane, 2020-06 0-08 01:45:00 PM, [address] [place] [address], , [place], [address], Provider Name:Radha Jha, 2021-03-25 8 01:00:00 PM, [address] [place] [address], , [place], [address], Insurance Providers Payer Name Payer Address Payer Phone Insured Name Patient Relati onship to Insured Coverage Start Date Coverage End Date [facility] [address] [facility] [phone] RUSSELL HUGHES self
--- OUTSIDE RECORDS SUMMARY | 2021-04-15 12:46 | CCD ---
Author Author [facility] Organization [facility] Address Unknown Phone Unavailable Care Team Providers Care Funeral Location Manager Name Role Phone Kasey Keane Unavailable PROBLEMS Type Condition ICD9-CM Code VQQ85-AE Code Onset Dates Condition S tatus W/U Status Risk SNOMED Code Notes Problem Gastroesophageal reflux disease without esophagitis K21.9 Active confirmed 288090641 Problem Morbid (severe) obesity due to excess calories E66 .01 Active confirmed 529052988 Problem Other allergic rhinitis J30.89 Active confirmed 77415106 Problem Chronic fatigue R53.82 Active confirmed 5270 2003 Problem Osteoarthritis of right shoulder, unspecified os teoarthritis type M19.011 Active confirmed 31901340 Problem Other chronic pain G89.29 Active confirmed 8 4458792 Problem Type 2 diabetes mellitus without complications E11 .9 Active confirmed 367645967 Problem Chronic pain due to trauma G89.21 Active confirmed 975606815 Problem Iron deficiency anemia, unspecified iron deficiency D50.9 Active confirmed 42814594 Problem Major depressive disorder, recurrent, moderate F33 .1 Active confirmed 523987467 Problem Essential hypertension I10 Active confirmed 33891292 Problem Hyperlipidemia, unspecified hyperlipidemia E78.5 Active confirmed 48665918 Problem Type 2 diabetes mellitus wit hout complication, unspecified whether termite control representative insulin use E11.9 Active confirmed 665287378 Problem Other cirrhosis of liver K74.69 Active confirmed 39217590 Problem Diabetic autonomic neuropathy associated with type 2 diabetes mellitus E11.43 Active confirmed 595468253 Problem Dysmenorrhea N94.6 Active confirmed 8109705 00 Problem Depression, unspecified depression type F32.9 Active confirmed 29206353 Problem Major depressive disorder, single episode, unspecified F32.9 Active confirmed 98251954 Problem Generalized anxiety disorder F41.1 Active confirme d 71058617 Problem History of hysterectomy Z90.710 Active confirmed 196790348 Problem Obstructive sleep apnea G47.33 Active confirmed 86809078 Problem residential (current) use of insulin Z79.4 Activ e confirmed 464137869 Problem Type 2 diabetes mellitus with other diabetic kid soren complication E11.29 Active confirmed 88799673 Problem Insomnia, unspecified type G47.00 Active confirmed 497650297 Problem Thrombocytopenia D69.6 Active confirmed 415 655740 Problem Uncontrolled type 2 diabetes mellitus with insulin therapy E11.65 Active confirmed 790410014812912 Problem residential current use of insulin Z79.4 Active conf irmed 535152018 Problem Vitamin D deficiency E55.9 Active confirmed 44660149 Problem Diabetic polyneuropathy associated with type 2 d iabetes mellitus E11.42 Active confirmed 043523332 Problem Gastroparesis K31.84 Active confirmed 607802 006 Problem Other ascites R18.8 Active confirmed 824769 000 Problem Nonalcoholic steatohepatitis (SÁNCHEZ) K75.81 Acti ve confirmed 245508597 ALLERGIES Allergen (clinical drug ingredient) Drug/Non Drug Allergy do cumented on EMR Reaction Allergy Type Onset Date Status hospital bracelets Rash Non Drug Allergy Active Adhesive Bandages Rash Drug Allergy Activ e ENCOUNTERS from 1966 to 2021-04-07 Encounter Location Date Provider Diagnosis [address] [phone] [place] [address] 14 Mar, 2021 Kasey Rodríguezsevasquez IMMUNIZATIONS Vaccine Route Administration Date Status Influenza [...] Education Language: Question Answer Notes Languages spoken: Persian Faith: Question Answer Notes Faith 33 None [...] for 30 Active FreeStyle Ralph 14 Day Lyle - 1 PER YEAR for 1 Active [...] for 1 month 08 Oc t2014 Active IBU 800 MG 1 tablet Orally [...] for 30 Active FreeStyle Ralph 14 Day Lyle - use as directed for co ntinuous [...] Daily for 30 day(s) May, Not-Taking Pen [place] 31G X 6 MM icd: e11.65 for [...] Information RESULTS No Results REASON FOR VISIT Cancelled visit MEDICAL (GENERAL) HISTORY Type Description Date Medical [...] Medication Name Sig Start Date Stop Date Basaglgilbert KwikPen 100 UNIT/ML as directed Subcutaneous 70 units in the am and 90 units in the pm for 30 days metFORMIN HCl 1000 MG 1 tablet with meals Orally Twice a day for 30 diphenhydrAMINE HCl 25 MG 1 capsule at bedtime as need ed Orally Once a day for 30 day(s) Feb, Next Appt Details Provider Name:Kasey Keane, 2020-06 0-15 01:45:00 PM, [address] [place] [address], , [place], [address], Provider Name:Radha Jha, 2021-03-25 8 01:00:00 PM, [address] [place] [address], , [place], [address], Insurance Providers Payer Name Payer Address Payer Phone Insured Name Patient Relati onship to Insured Coverage Start Date Coverage End Date [facility] [employer] [address] [facility] [phone] RUSSELL HUGHES self
--- OUTSIDE RECORDS SUMMARY | 2021-04-15 12:46 | CCD | Continuity of Care Document ---
Author Author Felicita LANDAVERDE MD Organization Unknown Address [address] [place] [id number] Phone [phone] Care Team Providers Care Pinmaker Name Role Phone Kasey Keane D.O. AUT[facility] ([facility]) - Hepatology AUTM [phone] Problems Active Problems Provider Date Disturbance of consciousness Truman Eckert, P.ARogelio Onset: 08/23 Difficulty breathing Truman Eckert, P.ARogelio Onset: 09/05/2017 History of polyp of colon Jack Landaverde MD Onset: 018 Obstructive sleep apnea syndrome Truman Eckert, PTrinidad Onset: 10/22/2017 Social History Type Date Description Comments Sex Female ETOH Use Denies alcohol use Tobacco Use Start: Unknown Denies Smoking Recreational Drug Use Denies Drug Use Exercise Type/Frequency Does not exercise Allergies and adverse reactions Active Allergies Criticality Reaction | Severity Comments Date NKDA Unable to assess criticality 07/27/2016 Adhesives Unable to assess criticality 07/27/2016 Medications Active Medications SIG Qnty Indications Ordering Provide r Date Lactulose 10GM/15ML Solution take 30 milliliters by mouth bid. (constipation and He) 1892ml K75.81 Jack Landaverde MD 03/17/2021 Torsemide 10mg Tablets take 1 tabs daily in am 30tabs Jack Landaverde MD 03/17/2021 CPAP 4-20cm marras Truman Eckert, P.A. 04/[address] 1 capsule by mouth twice daily. 60caps Jack Landaverde MD 07/27/2016 Humalog Kwikpen 100U nit/ML Solution Pen-Inject hs Unknown Trulicity 0.75mg/0.5 ML Solution Pen-Inject Unknown Sumatriptan Succinate 25mg Tablets Unknown Rashad Boonear 300Unit/ML Solution Pen-Inject 96 units every day Unknown 0 Deblitane 0.35mg Tablets ever y day Unknown Gabapentin 600mg Tablets 1 tab by mouth three times a day Unknown Mobic 7.5mg Tablets bid Unknown Flonase Allergy Relief 50mcg/Act Suspension 2 sprays per nostril daily Unknown Duloxetine HCL 20mg Caps DR Part Unknown Cetirizine HCL 10mg Tablets Unknown Aspirin 81 Low Dose 81mg Chewtabs 1 by mouth every day Unknown Lisinopril 10mg Tablets daily Unknown Hydrochlorothiazide 12.5mg Tablets daily Unknown Steglatro 5mg Tablets daily Unknown Buspirone HCL 10mg Tablets bi d Unknown Docusate Sodium 100mg Capsules 1 qd Unknown Tizanidine HCL 4mg Capsules Unknown Basaglar Kwikpen 100 Unit/ML Solution Pen-Inject am/pm Unknown Nortriptyline HCL 25mg Capsules hs Unknown Ferrous Sulfate 325(65Fe) mg Table ts every day Unknown Tramadol HCL 50mg Tablets hs Unknown Spironolactone 50mg Tablets b id Unknown Atorvastatin Calcium 80mg Tablets daily Unknown Hydroxyzine HCL 50mg Tablets daily Unknown Admelog 100Unit/ML Solution d inner Unknown Metoclopramide HCL 10mg Tablets bid Unknown History Medications Furosemide 40mg Tablets 1 by mouth twice a day 60tabs Jack Landaverde MD 01/24/2021 - Spironolactone 50mg Tablets Take 2 tabs (=100 mg) in am, Take 1 tab (=50 mg) in PM po 90tabs Piper Landaverde MD 01/24/2021 - 02/14/2021 Furosemide 20mg Tablets take 1 tablet by mouth bid 90tabs Krystian Callahan M.D. 2020 - 01/24/2021 Sutab [id number] Tablets as directed- see office colon prep instructions 24tabs D50.9 Jack Landaverde MD 10/14/2020 - 11/24/2020 Milk Of Magnesia 7.75% Suspension take 45 milliliters by mouth about 1-2 days before colonoscopy prep 360ml D50.9 Jack Landaverde MD 10/14/2020 - 10/24/2020 Immunizations Description No Information Available Vital Signs Date Vital Result Comment 03/17/2021 1:43pm BP Systolic 138 mmHg BP Diastolic 73 mmHg Height 66 inches 5'6" Weight 210.00 lb BMI (Body Mass Index) 33.9 kg/m2 Pearson Body Weight 130 lb Weight 95.256 kg BSA (Body Surface Area) 2.04 m2 01/24/2021 8:52am BP Systolic 125 mmHg BP Diastolic 65 mmHg Height 66 inches 5'6" Weight 221.00 lb BMI (Body Mass Index) 35.7 kg/m2 Pearson Body Weight 130 lb Weight 100.246 kg BSA (Body Surface Area) 2.09 m2 Results Test Acquired Date Facility Test Result H/L Range Note Prothrombin Time/Inr 01/12/2021 [facility] Main Lab [address] [place] [address] [phone] Prothrombin Time 14.2 seconds High 12.5-14.3 Inr 1.08 Normal 1 Laboratory test finding 01/12/2021 [facility] Main Lab [address] [place], [place] [id number] [phone] Platelet Count, Automated 111 10 Low 150-45 0 2 Laboratory test finding 12/20/2020 [facility] Main Lab [address] [place], [place] [id number] [phone] Bedside Glucose 268 mg/dL High 70-105 Cell Count Ascites Fluid 12/15/2020 [facility] Main Lab [address] [place] [address] [phone] Source, Body Fluid ASCITES Normal Ascites FL Color PALE YELLOW Normal Colorless Appearance, Body Fluid HAZY Normal Clear WBC Body Fluid 141 /uL High 0-10 RBC Body Fluid < 2 10 Normal <2 BF Mononuclear Cell % 92.9 % High 0-0 BF Polymorphonuclear Cell % 7.1 % High 0-0 TP Body Fluid 12/15/2020 [facility]ter Main Lab [address] [place] [address] [phone] Total Protein, Body Fluid 1.0 g/dL Normal Not Es tablished Source, Body Fluid Tot Protein ASCITES Normal Albumin Body Fluid 12/15/2020 [facility] nter Main Lab [address] [place] [address] [phone] Albumin, Body Fluid 0.3 g/dL Normal Not Establis hed Source, Body Fluid Albumin ASCITES Normal 1 THERAPUTIC HUMAN INR VALUES INDICATIONS NORMAL RANGES PROPHYLAXIS/TREATMENT OF: VENOUS THROMBOSIS 2.0-3.0 PULMONARY EMBOLISM 2.0-3.0 PREVENTION OF SYSTEMIC EMBOLISM FROM: TISSUE HEART VALVES 2.0-3.0 ACUTE MYOCARDIAL INFARCTION 2.0-3.0 VALVULAR HEART DISEASE 2.0-3.0 ATRIAL FIBRILLATION 2.0-3.0 MECHANICAL VALVES(HIGH RISK) 2.5-3.5 RECURRENT MYOCARDIAL INFARCTION 2.5-3.5 2 By: LAB DRAW Time: 1030 Procedures Date Code Description Status 03/17/2021 61302 Office/Outpatient Established Mo d MDM 30-39 Min Completed 01/24/2021 56817 Office/Outpatient Established Mo d MDM 30-39 Min Completed 12/20/2020 94439 Colonoscopy Flexible Proximal To Splenic Flexure Diagnostic W/Or Completed 12/20/2020 01153 Endoscopy Upper GI W/Band Ligati on Of Varices Completed 10/14/2020 92413 Office/Outpatient Established Mo d MDM 30-39 Min Completed Medical Devices Description No Information Available Encounters Type Date Location Provider Dx Diagnosis Office Visit 03/17/2021 1:30p [facility] Pra aparna Landaverde MD K75.81 Nonalcoholic steatohepatitis ([place]) K74.69 Other cirrhosis of liver R18.8 Other ascites D56.9 Thalassemia, unspecified K31.84 Gastroparesis Office Visit 01/24/2021 8:50a [facility] Pra aparna Landaverde MD K75.81 Nonalcoholic steatohepatitis ([place]) K74.69 Other cirrhosis of liver I85.10 Secondary esophageal varices without bleeding K76.6 Portal hypertension D64.9 Anemia, unspecified D56.9 Thalassemia, unspecified Office Visit 10/14/2020 1:45p [facility] Jack Landaverde MD D50.9 Iron deficiency anemia, unsp ecified D64.9 Anemia, unspecified D56.9 Thalassemia, unspecified K75.81 Nonalcoholic steatohepatitis ([place]) K74.69 Other cirrhosis of liver K31.84 Gastroparesis Assessments Date Code Description Provider 03/17/2021 K75.81 Nonalcoholic steatohepatitis ([place]) Jack Landaverde MD 03/17/2021 K74.69 Other cirrhosis of liver Jack mendez MD 03/17/2021 R18.8 Other ascites Jack Landaverde MD 03/17/2021 D56.9 Thalassemia, unspecified Jack mendez MD 03/17/2021 K31.84 Gastroparesis Jack Landaverde MD 01/24/2021 K75.81 Nonalcoholic steatohepatitis ([place]) Jack Landaverde MD 01/24/2021 K74.69 Other cirrhosis of liver Jack mendez MD 01/24/2021 I85.10 Secondary esophageal varices wit hout bleeding Jack Landaverde MD 01/24/2021 K76.6 Portal hypertension Jack Landaverde MD 01/24/2021 D64.9 Anemia, unspecified Jack Landaverde MD 01/24/2021 D56.9 Thalassemia, unspecified Jack mendez MD 12/20/2020 D50.9 Iron deficiency anemia, unspecif ied Jack Landaverde MD 12/20/2020 K31.89 Other diseases of stomach and du odenum Jack Landaverde MD 12/20/2020 K76.6 Portal hypertension Jack Landaverde MD 12/20/2020 I85.10 Secondary esophageal varices wit hout bleeding Jack Landaverde MD 12/20/2020 K74.60 Unspecified cirrhosis of liver D martin Landaverde MD 10/14/2020 D50.9 Iron deficiency anemia, unspecif ied Jack Landaverde MD 10/14/2020 D64.9 Anemia, unspecified Jack Landaverde MD 10/14/2020 D56.9 Thalassemia, unspecified Jack mendez MD 10/14/2020 K75.81 Nonalcoholic steatohepatitis ([place]) Jack Landaverde MD 10/14/2020 K74.69 Other cirrhosis of liver Jack mendez MD 10/14/2020 K31.84 Gastroparesis Jack Landaverde MD Plan of Treatment Future Appointment(s):* 04/14/2021 2:45 pm - Jack Landaverde MD at [facility] 03/17/2021 - Jack Landaverde MD* K75.81 Nonalcoholic steatohepatitis ([place]) * K74.69 Other cirrhosis of liver * R18.8 Other ascites * D56.9 Thalassemia, unspecified * K31.84 Gastroparesis * * New Medication:* Lactulose 10 GM/15ML * New Orders:* EGD w/ poss. Variceal Banding, Ordered: 03/17/21 * Referral:* [facility] ([facility]), Hepatology/Int Med/Phys * Comments:* she despite Spironolactone 150 and Furosemide 80 mg daily.requires weekly paracentesis (3-4 liters recently). Creat is OK * Recommendations:* Low Na diet, Cont spironolactone at 40 mg po bid D/C furosemide. start Torsemide 10 mg q day. High protein diet. repeat EGD for variceal banding Referral to hepatology/[place] for possible transplant eval Polypharmacy: Pt on multiple meds--I dont know if she is taking all the meds at all times, since there is at least 20 daily meds listed on her record. I will ask her to bring the actual bottles in for review. I rfequest PCP to please review her meds for necessity. Functional Status Description No Information Available Mental Status Description No Information Available Referrals Refer to Reason for Referral Status Appt Date [facility] ([facility]) Closed [address] [facility] [id number] [phone] [facility] ([facility]) Pt with advanced/decom pensated Cirrhosis related to [place]. ascites/esophageal varices. Created [address] [place] [address] [phone] Jack Landaverde M.D. [phone] [phone] [id number] Closed 12/20/2020 [facility], Gastroenterology [address] [facility], [place] [address] [phone]
--- OUTSIDE RECORDS SUMMARY | 2021-04-15 12:46 | CCD ---
Author Author [facility] Organization [facility] Address Unknown Phone Unavailable Care Team Providers Care Court Advocate Name Role Phone Kasey Keane Unavailable PROBLEMS Type Condition ICD9-CM Code CSD88-AA Code Onset Dates Condition S tatus W/U Status Risk SNOMED Code Notes Problem Morbid (severe) obesity due to excess calories E66 .01 Active confirmed 538606821 Problem Suspected sleep apnea G47.30 Active confirmed 75854163 Problem Osteoarthritis of right shoulder, unspecified os teoarthritis type M19.011 Active confirmed 28882529 Problem TSH (thyroid-stimulating hormone deficiency) E03.8 Active confirmed 81826573 Problem Chronic fatigue R53.82 Active confirmed 5270 2003 Problem FCI (current) use of insulin Z79.4 Activ e confirmed 817564233 Problem Gastroesophageal reflux disease without esophagitis K21.9 Active confirmed 513930835 Problem Type 2 diabetes mellitus with other diabetic kid soren complication E11.29 Active confirmed 15865647 Problem Hyperlipidemia, unspecified hyperlipidemia E78.5 Active confirmed 48740327 Problem Essential hypertension I10 Active confirmed 77701872 Problem Symptomatic menopausal or female climacteric states N95.1 Active confirmed 15091347 Problem Irregular menstrual bleeding N92.6 Active confirme d 55012079 Problem Anxiety F41.9 Active confirmed 36582660 Problem Type 2 diabetes mellitus wit hout complication, without long-term current use of insulin E11.9 Active confirmed 341029255 Problem Globus sensation F45.8 Active confirmed 888 72774 Problem Dysphagia, unspecified type R13.10 Active confirmed 49918832 Problem Iron deficiency anemia, unspecified iron deficiency an emia type D50.9 Active confirmed 80647364 Problem Thrombocytopenia D69.6 Active confirmed 415 761110 Problem Other iron deficiency anemia D50.8 Active confirme d 27054816 Problem Other chronic pain G89.29 Active confirmed 8 3540925 Problem Sleep apnea, unspecified type G47.30 Active confirm ed 29461193 Problem FCI current use of insulin Z79.4 Active conf irmed 765950565 Problem Type 2 diabetes mellitus without complications E11 .9 Active confirmed 721949363 Problem Pancytopenia D61.818 Active confirmed 708341 005 Problem Fatty liver K76.0 Active confirmed 03917799 7 Problem Other cirrhosis of liver K74.69 Active confirmed 41380498 Problem Vitamin D deficiency E55.9 Active confirmed 63904331 Problem Dysmenorrhea N94.6 Active confirmed 5442261 00 Problem Type 2 diabetes mellitus wit hout complication, unspecified whether correction insulin use E11.9 Active confirmed 821293586 Problem Major depressive disorder, single episode, unspecified F32.9 Active confirmed 12433806 Problem Excessive and frequent menstruation with regular cycle N92.0 Active confirmed 573954562 Problem Cirrhosis of liver without ascites, unsp ecified hepatic cirrhosis type K74.60 Active confirmed 21594842 Problem 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 Active confirmed 26 8416156 Problem Environmental allergies Z91.09 Active confirmed 357203005 Problem Vaginal bleeding N93.9 Active confirmed 289 591161 Problem Generalized anxiety disorder F41.1 Active confirme d 89806824 Problem History of hysterectomy Z90.710 Active confirmed 429836623 Problem Gross hematuria R31.0 Active confirmed 1979 91145 Problem Major depressive disorder, recurrent, moderate F33 .1 Active confirmed 862727774 Problem Neuropathy G62.9 Active confirmed 683600735 Problem Proteinuria R80.9 Active confirmed 68572061 Problem Urinary tract infection, site not specified N39.0 Active confirmed 91951530 Problem Diabetic peripheral neuropathy associate d with type 2 diabetes mellitus E11.42 Active confirmed 0044419054720 Problem Chronic pain due to trauma G89.21 Active confirmed 859462981 Problem Iron deficiency anemia, unspecified iron deficiency D50.9 Active confirmed 73931444 Problem Obstructive sleep apnea G47.33 Active confirmed 89275006 Problem Other allergic rhinitis J30.89 Active confirmed 61046372 Problem Burning sensation of feet R20.8 Active confirmed 69260955 Problem Diabetic polyneuropathy associated with type 2 d iabetes mellitus E11.42 Active confirmed 227265171 Problem History of anemia Z86.2 Active confirmed 27 4053013 Problem Uncontrolled type 2 diabetes mellitus with insulin therapy E11.65 Active confirmed 751288225286952 Problem Depression, unspecified depression type F32.9 Active confirmed 92846470 Problem Unspecified cirrhosis of liver K74.60 Active confir med 96704563 Problem Diabetic autonomic neuropathy associated with type 2 diabetes mellitus E11.43 Active confirmed 929935293 Problem Iron deficiency anemia, unspecified D50.9 Acti ve confirmed 83482495 Problem Gastroparesis K31.84 Active confirmed 541247 006 Problem Other ascites R18.8 Active confirmed 211454 000 Problem Nonalcoholic steatohepatitis ([place]) K75.81 Acti ve confirmed 531501346 Problem Insomnia, unspecified type G47.00 Active confirmed 594708027 ALLERGIES Allergen (clinical drug ingredient) Drug/Non Drug Allergy do cumented on EMR Reaction Allergy Type Onset Date Status hospital bracelets Rash Non Drug Allergy Active Adhesive Bandages Rash Drug Allergy Activ e ENCOUNTERS from 1966 to 2021-04-04 Encounter Location Date Provider Diagnosis [facility] Res[facility] [phone] [place] [address] 16 Jan, 2021 Kasey Movsesian Generalized abdomina l pain R10.84 ; Type 2 diabetes mellitus without complication, without long-term current use of insulin E11.9 and Hypokalemia E87.6 IMMUNIZATIONS Vaccine Route Administration Date Status Influenza [...] Language: Question Answer Notes Languages spoken: Polish Orthodox: Question Answer Notes Orthodox 33 None Sexual Hx: Question Answer Notes [...] FOR REFERRAL No Information VITAL SIGNS Weight 214.2 lbs Jan, Weight-kg 97.16 kg Jan, Height 68 in Jan, BMI 32.57 kg/m2 Jan, Heart Rate 107 /min Jan, Respiratory Rate 18 /min Jan, Temperature 98.3 degrees Fahrenheit Jan, Oximetry 97 Jan, Blood pressure systolic 110 mm Hg Jan, Blood pressure diastolic 60 mm Hg Jan, MEDICATIONS Medication SIG (Take, [...] for 30 Active FreeStyle Ralph 14 Day [place] - 1 PER YEAR for 1 Active [...] a day for 1 month 08 Oc t, 2014 Active IBU 800 MG 1 tablet [...] 100 MG TAKE ONE CAPSULE BY MOUTH DAY NEEDED Orally Once a day for 30 Active FreeStyle Ralph 14 Day [place] - use as directed for co ntinuous [...] Daily for 30 day(s) May, Not-Taking Pen [place] 31G X 6 MM icd: e11.65 for [...] 1 tablet Orally twice a day duplicate 15 Nov, 2 021 Not-Taking traMADol HCl 50 MG 2 [...] day(s) Dec, Active PROCEDURES No Information RESULTS Component Value Reference Range HEMOGLOBIN A1c Reviewed date:02/07/2021 17:41:41 Interpretation: Performing Lab:[facility] [address] [facility] [id number] , ,[place] [address] HEMOGLOBIN A1c 12.0 ESTIMATED AVERAGE GLUCOSE 298 60-110 Basic Metabolic Profile (BMP) Reviewed date:02/07/2021 17:41:59 Interpretation: Performing Lab:[facility] [address] [facility] [id number] , ,[place] [address] GLUCOSE, FASTING 192 70-100 BLOOD UREA NITROGEN 18 7-18 CREATININE FOR GFR 0.90 0.55-1.30 GLOMERULAR FILTRATION RATE > 60.0 >51 SODIUM LEVEL 133 136-145 POTASSIUM SERUM 3.3 3.5-5.1 CHLORIDE LEVEL 98 98-107 CARBON DIOXIDE LEVEL 27 21-32 CALCIUM LEVEL 8.2 8.5-10.1 REASON FOR VISIT one week follow up MEDICAL (GENERAL) HISTORY Type Description Date Medical History Hyperlipidemia Medical History Depression Medical History Anxiety Medical History Hypertension Medical History Diabetes Mellitus-Persistent from Gestat ional Medical History Allergic Rhinitis Medical History BPPV ?? Medical History Legally Blind Right Eye since Medical History Osteoarthritis Medical History refused PNA - Jun 2016 Medical History ANEMIC Medical [...] Treatment Notes Treatm ent Clinical Notes Jan, Generalized abdominal pain (ICD-10 - R10.84) Likely related to the patient's recurrent ascites which requires interval paracentesis. She is following with GI for this for optimization of her diuretic. We will continue her on tramadol twice a day as needed to help manage her pain until we can get better management of her ascitic fluid buildup. The goal would be to titrate her off the tramadol at some point. We will continue to reevaluate at follow-up the need for narcotic pain medication. Jan, Type 2 diabetes mellitus wit hout complication, without long-term current use of insulin (ICD-10 - E11.9) Recheck labs today. We may need to adjust the patient's medications. I did review the patient's home blood glucose monitor and she does seem to run high at times but does also get low in the 90s at times in the morning as well. We did increase her insulin dosing at her last visit. I would be cautious further increasing her insulin due to these lower blood sugar levels. Patient is up-to-date on eye exam and foot exam. Jan, Hypokalemia (ICD-10 - E87.6) Can be related to the patient's diuretic and insulin use. Will recheck BMP and adjust the patient's supplemental potassium. PLAN OF TREATMENT Medication Medication Name Sig [...] Once a day for 30 day(s) Feb, Treatment Notes Assessment Notes Clinical Notes Generalized abdominal pain Likely relate d to the patient's recurrent ascites which requires interval paracentesis. She is following with GI for this for optimization of her diuretic. We will continue her on tramadol twice a day as needed to help manage her pain until we can get better management of her ascitic fluid buildup. The goal would be to titrate her off the tramadol at some point. We will continue to reevaluate at follow-up the need for narcotic pain medication. Type 2 diabetes mellitus without complic ation, without long-term current use of insulin Recheck labs today. We may need to adjust the patient's medications. I did review the patient's home blood glucose monitor and she does seem to run high at times but does also get low in the 90s at times in the morning as well. We did increase her insulin dosing at her last visit. I would be cautious further increasing her insulin due to these lower blood sugar levels.Patient is up-to-date on eye exam and foot exam. Hypokalemia Can be related to th e patient's diuretic and insulin use. Will recheck BMP and adjust the patient's supplemental potassium. Next Appt Details 2 Weeks Reason: Provider Name:Kasey Keane, 2020-06 015 01:45:00 PM, [address] , , [place], [address], Provider Name:Radha Jha, 2021-03-25 8 01:00:00 PM, [address] [facility], , [place], [address], Insurance Providers Payer Name Payer Address Payer Phone Insured Name Patient Relati onship to Insured Coverage Start Date Coverage End Date FORMERLY [facility] [employer] [facility] [address] [facility] [phone] RUSSELL HUGHES self
--- OUTSIDE RECORDS SUMMARY | 2021-04-15 12:47 | CCD | Continuity of Care Document ---
Author Author Felicita LANDAVERDE MD Organization Unknown Address [address] [place] [address] Phone [phone] Care Team Providers Care Sex Crimes Detective Name Role Phone Kasey Keane D.O. AUTM Problems Active Problems Provider Date Disturbance of consciousness CHE Gonsalez Onset: 08/23 Difficulty breathing CHE Gonsalez Onset: 09/05/2017 History of polyp of colon Jack Landaverde MD Onset: 018 Obstructive sleep apnea syndrome CHE Gonsalez Onset: 10/22/2017 Social History Type Date Description Comments Sex Female ETOH Use Denies alcohol use Tobacco Use Start: Unknown Denies Smoking Recreational Drug Use Denies Drug Use Exercise Type/Frequency Does not exercise Allergies, Adverse Reactions, Alerts Active Allergies Criticality Reaction | Severity Comments [...] Jack Landaverde MD 03/17/2021 CPAP 4-20cm marras CHE Gonsalez 11/[address] 1 capsule by [...] Suspension 2 sprays per nostril daily Unknown 0 Duloxetine HCL 20mg Caps DR Part Unknown [...] tab (=50 mg) in PM po 90tabs D martin Landaverde MD 01/24/2021 - 02/14/2021 Furosemide 20mg Tablets take 1 tablet by mouth bid 90tabs Krystian Callahan M.D. 2020 - 01/24/2021 Sutab [id number] Tablets as directed- see office colon prep [...] lb BMI (Body Mass Index) 33.9 kg/m2 Rubicon Body Weight 130 lb Weight 95.256 kg BSA (Body Surface Area) 2.04 m2 01/24/2021 8:52am BP Systolic 125 mmHg BP Diastolic 65 mmHg Height 66 inches 5'6" Weight 221.00 lb BMI (Body Mass Index) 35.7 kg/m2 Rubicon Body Weight 130 lb Weight 100.246 kg BSA (Body Surface Area) 2.09 m2 Results Test Acquired Date Facility Test Result H/L Range Note Prothrombin Time/Inr 01/12/2021 [facility] Main Lab [address] [place] [address] [phone] Prothrombin Time 14.2 seconds High 12.5-14.3 Inr 1.08 Normal 1 Laboratory test finding 01/12/2021 [facility] Main Lab [address] [place] [address] [phone] Platelet Count, Automated 111 10 Low 150-45 0 2 Laboratory test finding 12/20/2020 [facility] Main Lab [address] [place] [address] [phone] Bedside Glucose 268 mg/dL High 70-105 Cell Count Ascites Fluid 12/15/2020 [facility] Main Lab [address] [place] [address] [phone] Source, Body Fluid ASCITES Normal Ascites FL Color PALE YELLOW Normal Colorless Appearance, Body Fluid HAZY Normal Clear WBC Body Fluid 141 /uL High 0-10 RBC Body Fluid < 2 10 Normal <2 BF Mononuclear Cell % 92.9 % High 0-0 BF Polymorphonuclear Cell % 7.1 % High 0-0 TP Body Fluid 12/15/2020 [facility] Main Lab [address] [place] [address] [phone] Total Protein, Body Fluid 1.0 g/dL Normal Not Es tablished Source, Body Fluid Tot Protein ASCITES Normal Albumin Body Fluid 12/15/2020 [facility] nter Main Lab [address] [place], [place] [address] [phone] Albumin, Body Fluid 0.3 g/dL Normal Not [...] 1030 Procedures Date Code Description Status 03/17/2021 84963 Office/Outpatient Established Mo d MDM 30-39 Min Completed 01/24/2021 05299 Office/Outpatient Established Mo d MDM 30-39 Min Completed 12/20/2020 39968 Colonoscopy Flexible Proximal To Splenic Flexure Diagnostic W/Or Completed 12/20/2020 98063 Endoscopy Upper GI W/Band Ligati on Of Varices Completed 10/14/2020 60816 Office/Outpatient Established Mo d MDM 30-39 Min Completed Medical Devices Description No Information Available Encounters Type Date Location Provider Dx Diagnosis Office Visit 03/17/2021 1:30p [facility] Pra aparna Landaverde MD K75.81 Nonalcoholic steatohepatitis ([place]) K74.69 Other cirrhosis of liver R18.8 Other ascites D56.9 Thalassemia, unspecified K31.84 Gastroparesis Office Visit 01/24/2021 8:50a [facility] Pra aparna Landaverde MD K75.81 Nonalcoholic steatohepatitis ([place]) K74.69 Other cirrhosis of liver I85.10 Secondary esophageal varices without bleeding K76.6 Portal hypertension D64.9 Anemia, unspecified D56.9 Thalassemia, unspecified Office Visit 10/14/2020 1:45p [facility] Pra ctice Jack Landaverde MD D50.9 Iron deficiency [...] 2:45 pm - Jack Landaverde MD at [facility] Functional Status Description No Information Available Mental Status Description No Information Available Referrals Refer to Dr Reason for Referral Status Appt Date Jack Landaverde M.D. [id number] Scheduled 12/20/2020 [facility], Gastroenterology [address], [address] [place] [address] [phone]
--- OUTSIDE RECORDS SUMMARY | 2021-04-15 12:47 | CCD ---
Author Author [facility] Organization [facility] Address Unknown Phone Unavailable Care Team Providers Care Drone Pilot Name Role Phone Kasey Keane Unavailable PROBLEMS Type Condition ICD9-CM Code EPV33-JC Code Onset Dates Condition S tatus W/U Status Risk SNOMED Code Notes Problem Irregular menstrual bleeding N92.6 Active confirme d 56416290 Problem Osteoarthritis of right shoulder, unspecified os teoarthritis type M19.011 Active confirmed 20518514 Problem Morbid (severe) obesity due to excess calories E66 .01 Active confirmed 819733718 Problem Chronic fatigue R53.82 Active confirmed 5270 2003 Problem Suspected sleep apnea G47.30 Active confirmed 51905310 Problem Chronic pain due to trauma G89.21 Active confirmed 426700562 Problem Hyperlipidemia, unspecified hyperlipidemia E78.5 Active confirmed 19683968 Problem Obstructive sleep apnea G47.33 Active confirmed 98648005 Problem Iron deficiency anemia, unspecified iron deficiency D50.9 Active confirmed 38138517 Problem Symptomatic menopausal or female climacteric states N95.1 Active confirmed 53640437 Problem Gastroesophageal reflux disease without esophagitis K21.9 Active confirmed 108646134 Problem Anxiety F41.9 Active confirmed 65112202 Problem Essential hypertension I10 Active confirmed 95956009 Problem Pancytopenia D61.818 Active confirmed 803776 005 Problem Type 2 diabetes mellitus wit hout complication, without long-term current use of insulin E11.9 Active confirmed 498830617 Problem Iron deficiency anemia, unspecified iron deficiency an emia type D50.9 Active confirmed 07170338 Problem Globus sensation F45.8 Active confirmed 888 70617 Problem Other iron deficiency anemia D50.8 Active confirme d 54511902 Problem Dysphagia, unspecified type R13.10 Active confirmed 65425776 Problem Sleep apnea, unspecified type G47.30 Active confirm ed 71765426 Problem TSH (thyroid-stimulating hormone deficiency) E03.8 Active confirmed 57833849 Problem Type 2 diabetes mellitus without complications E11 .9 Active confirmed 953910096 Problem Other chronic pain G89.29 Active confirmed 8 8337727 Problem intermediate current use of insulin Z79.4 Active conf irmed 597609300 Problem Environmental allergies Z91.09 Active confirmed 536231476 Problem Vitamin D deficiency E55.9 Active confirmed 82477181 Problem Fatty liver K76.0 Active confirmed 84001176 7 Problem Type 2 diabetes mellitus wit hout complication, unspecified whether termite treater insulin use E11.9 Active confirmed 768258505 Problem Other cirrhosis of liver K74.69 Active confirmed 58015377 Problem Excessive and frequent menstruation with regular cycle N92.0 Active confirmed 880986784 Problem Dysmenorrhea N94.6 Active confirmed 1090767 00 Problem 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 Active confirmed 26 7885728 Problem Thrombocytopenia D69.6 Active confirmed 415 519149 Problem Vaginal bleeding N93.9 Active confirmed 289 580526 Problem Cirrhosis of liver without ascites, unsp ecified hepatic cirrhosis type K74.60 Active confirmed 31883350 Problem History of hysterectomy Z90.710 Active confirmed 105252547 Problem Iron deficiency anemia, unspecified D50.9 Acti ve confirmed 17191124 Problem Major depressive disorder, recurrent, moderate F33 .1 Active confirmed 777759049 Problem Generalized anxiety disorder F41.1 Active confirme d 00902750 Problem Urinary tract infection, site not specified N39.0 Active confirmed 28012536 Problem Diabetic peripheral neuropathy associate d with type 2 diabetes mellitus E11.42 Active confirmed 7942644530074 Problem Gross hematuria R31.0 Active confirmed 1978 99007 Problem SÁNCHEZ (nonalcoholic steatohepatitis) K75.81 Acti ve confirmed 095283701 Problem Other allergic rhinitis J30.89 Active confirmed 43113800 Problem Neuropathy G62.9 Active confirmed 214343778 Problem Proteinuria R80.9 Active confirmed 86564408 Problem Type 2 diabetes mellitus with other diabetic kid soren complication E11.29 Active confirmed 46026134 Problem intermediate (current) use of insulin Z79.4 Activ e confirmed 409600701 Problem Burning sensation of feet R20.8 Active confirmed 37972867 Problem Other ascites R18.8 Active confirmed 462140 000 Problem Diabetic autonomic neuropathy associated with type 2 diabetes mellitus E11.43 Active confirmed 936939071 Problem Nonalcoholic steatohepatitis (S[place]HE[place]) K75.81 Acti ve confirmed 280840711 Problem Major depressive disorder, single episode, unspecified F32.9 Active confirmed 98585600 Problem Depression, unspecified depression type F32.9 Active confirmed 52244193 Problem Uncontrolled type 2 diabetes mellitus with hyperglycemia E11.65 Active confirmed 930246563 Problem Diabetic polyneuropathy associated with type 2 d iabetes mellitus E11.42 Active confirmed 329712199 Problem History of anemia Z86.2 Active confirmed 27 4465202 Problem Gastroparesis K31.84 Active confirmed 099049 006 ALLERGIES Allergen (clinical drug ingredient) Drug/Non Drug Allergy do cumented on EMR Reaction Allergy Type Onset Date Status hospital bracelets Rash Non Drug Allergy Active Adhesive Bandages Rash Drug Allergy Activ e ENCOUNTERS from 1966 to 2021-02-16 Encounter Location Date Provider Diagnosis [facility] [phone] [place] [address] 26 Dec, 2020 Kasey Movsesian Cirrhosis of liver w ithout ascites, unspecified hepatic cirrhosis type K74.60 ; Uncontrolled type 2 diabetes mellitus with insulin therapy E11.65 ; Encounter for screening mammogram for malignant neopla sm of breast Z12.31 ; Medical orders for life-sustaining treatment (MOLST) form in chart Z78.9 and Mobility impaired Z74.09 IMMUNIZATIONS Vaccine Route Administration Date Status Influenza [...] Education Language: Question Answer Notes Languages spoken: Maori Yarsani: Question Answer Notes Yarsani 33 None Sexual Hx: Question Answer Notes [...] FOR REFERRAL No Information VITAL SIGNS Weight 230.0 lbs Dec, Height 68 in Dec, BMI 34.97 kg/m2 Dec, Heart Rate 111 /min Dec, Respiratory Rate 18 /min Dec, Temperature 98.4 degrees Fahrenheit Dec, Oximetry 98 Dec, Blood pressure systolic 120 mm Hg Dec, Blood pressure diastolic 70 mm Hg Dec, MEDICATIONS Medication SIG (Take, Route, Frequency, Duration) Notes Start Da te End Date Status Aspir-81 81 MG 1 tablet Orally Once a day duplicate Not-Taking Spironolactone 50 MG 1 tablet Orally twice a day duplicate 15 Nov, 2 021 Not-Taking Aspirin 81 81 MG 1 tablet Orally Once a day for 30 Not-Taking Gabapentin 400 MG 1 capsule Orally Three times a day for 30 day( s) Mar, Not-Taking hydroCHLOROthiazide 12.5 MG 1 tablet Orally Once a day for 30 Not-Taking Zantac 150 MG 1 tab Orally Twice a day for 30 Not-Taking BuSpar 10 mg 1 tablet Orally Twice a day for 1 month 2014 Active Lisinopril 10 10 mg 1 tablet orally Once a day for 30 duplicate Not-Taking Blood Pressure Kit - Dx l10 arm twice daily Jun, Active tiZANidine HCl 4 MG TAKE ONE TABLET BY MOUTH AT BEDTIME NEEDED FOR SPASMS Oral for 30 Active Lasix 40 MG 1 tablet Orally twice a day Dec, Active FreeStyle Ralph 14 Day Sensor - use as directed for co ntinous glucose monitoring continuous for 28 day(s) Mar, Active Flonase 50 MCG/ACT 1 spray in each nostril Nasally Once a day for 31 Not-Taking Lasix 20 MG 2 tablet Orally Once a day Active FreeStyle Ralph 14 Day [place] - 1 PER YEAR for 1 Active DULoxetine HCl 60 MG 1 capsule Orally Once a day for 30 day(s) Apr, Active Ferrous Sulfate 325 (65 Fe) MG 1 tablet Orally Once a day for 30 days Active Gabapentin 600 MG 1 tablet Orally three times daily for 30 day(s ) Jan, Not-Taking Vitamin E 1000 UNIT 1 capsule Orally Once a day for 30 day(s) Nov, Active busPIRone HCl 10 MG 1 tab orally twice daily Active Pen [place] 31G X 6 MM icd: e11.65 for use with ins ulin pens - DX Z79.4 four times daily for 30 day(s) Apr, Active Admelog 100 UNIT/ML 20 units Subcutaneous before dinner Active HumaLOG 100 UNIT/ML 20 units Subcutaneous before dinner for 30 day(s) please dispense amount necessary for 20 units nightly, unsure what to put in the May, Not-Taking Metoclopramide HCl 10 MG 1 tablet before meals Orally Twice a day for 30 Active Omeprazole 40 MG TAKE ONE CAPSULE BY MOUTH TWICE A DAY for 30 Active Docusate Sodium 100 MG TAKE ONE CAPSULE BY MOUTH EV CIPRIANO DAY NEEDED Orally Once a day for 30 Active traMADol HCl 50 MG 1 tablet as needed Orally BIDPRN MDD: 2 for 2 8 days Jan, Active Insulin Syringe insulin syringe icd:250.02 iddm subcut aneously twice daily for 30 Active traMADol HCl 50 MG 2 tablets as needed Orally Once a day for 7 d ays duplicate Nov, Not-Taking Cetirizine HCl 5 MG 1 tablet Orally Once a day for 30 Not-Taking IBU 800 MG 1 tablet Orally Three times a day as needed for 30 Not-Taking Atorvastatin Calcium 80 MG 1 tablet Orally Once a day for 30 Active Lisinopril 10 MG 1 tablet Orally Once a day for 30 Not-Taking Mucinex 600 MG 1 tablet as needed Orally Daily for 30 day(s) May, Not-Taking Spironolactone 50 MG 1 tablet Orally twice a day for 60 day(s) Dec, Active Actos 30 MG 1 tablet Orally Once a day for 30 Active DULoxetine HCl 20 MG 1 capsule Orally Once a day for 7 day(s) October, Not-Taking Nortriptyline HCl 25 MG 1 capsule Orally once daily at bedtime for 30 Active FreeStyle Ralph 14 Day [place] - use as directed for co ntinuous glucose monitoirng continuous Daily for 28 day(s) Mar, Active metFORMIN HCl 1000 MG 1 tablet with meals Orally Twice a day for 30 Active Wheelchair - as directed electric wheelch air for chronic deconditioning and E66.01 and R53.82. 13 Dec, 2020 Active hydrOXYzine HCl 50 MG 1 tablet Orally 1 for 1 dose(s) 2017 Active Claritin-D 24 Hour 10-240 MG 1 tablet as needed Orally Once a da y for 30 days Active Lancets - as directed for 30 days Jan, Active Trulicity 0.75 MG/0.5ML 0.5 ml Subcutaneous weekly for 15 Not-Taking Basaglar KwikPen 100 UNIT/ML as directed Subcutaneous 70 units in the am and 90 units in the pm for 10 Active Meclizine HCl 25 mg take two tablets by mouth every day orally bid Active SUMAtriptan Succinate 25 MG 1 tablet as needed one erika e, repeat if no relief in 2 hours Orally Once a day Jul, Not-Ta harvinder Toujeo SoloStar Pens 450 U/1.5mL as directed subcutane ously 90 units in the morning, 90 units at night Apr, Not-T aking One touch ultra blue _ as directed intradermally 3 - 5 x/day for 20 Active FreeStyle Ralph 14 Day Sensor - CHANGE EVERY 14 DAYS for 14 Active Steglatro 5 MG 1 tablet Orally Once a day for 30 Active Mobic 7.5 MG 1 tablet Orally twice daily as needed Apr, Not-Taking Deblitane 0.35 MG 1 tablet Orally Once a day Not-Taking PROCEDURES No Information RESULTS Component Value Reference Range CBC with Differential Reviewed date:01/20/2021 11:03:33 Interpretation: Performing Lab:[facility], [facility] [address] [facility] [id number] , ,[place] [address] WHITE BLOOD COUNT 4.6 4.0-10.0 RED BLOOD COUNT 4.08 4.00-5.40 HEMOGLOBIN 11.6 12.0-15.5 HEMATOCRIT 35.8 36.0-47.0 MEAN CORPUSCULAR VOLUME 87.7 80.0-96.0 MEAN CORPUSCULAR HEMOGLOBIN 28.4 27.0-33.0 MEAN CORPUSCULAR HGB CONC 32.4 32.0-36.5 RED CELL DISTRIBUTION WIDTH 17.6 11.5-14.5 PLATELET COUNT, AUTOMATED 113 150-450 NEUTROPHILS % 68.3 36.0-66.0 LYMPH % 18.7 24.0-44.0 MONO % 9.2 2.0-8.0 EOS % 2.0 0.0-3.0 BASO % 0.7 0.0-1.0 NEUTROPHILS # 3.1 1.5-8.5 LYMPH # 0.9 1.5-5.0 MONO # 0.4 0.0-0.8 EOS # 0.1 0.0-0.5 BASO # 0.0 0.0-0.2 Comprehensive Metabolic Profile (CMP) Reviewed date:01/20/2021 11:03:19 Interpretation: Performing Lab:[facility] [address] [facility] [address] , ,[facility] GLUCOSE, FASTING 557 70-100 BLOOD UREA NITROGEN 16 7-18 CREATININE FOR GFR 1.09 0.55-1.30 GLOMERULAR FILTRATION RATE 55.7 >51 SODIUM LEVEL 131 136-145 POTASSIUM SERUM 3.6 3.5-5.1 CHLORIDE LEVEL 96 98-107 CARBON DIOXIDE LEVEL 24 21-32 CALCIUM LEVEL 9.5 8.5-10.1 AST/SGOT 29 7-37 ALT/SGPT 37 12-78 ALKALINE PHOSPHATASE 217 45-117 BILIRUBIN,TOTAL 0.7 0.2-1.0 TOTAL PROTEIN 7.2 6.4-8.2 ALBUMIN 2.4 3.2-5.2 ALBUMIN/GLOBULIN RATIO 0.5 1.2-2.2 PT-INR Reviewed date:01/20/2021 11:03:39 Interpretation: Performing Lab:[facility] [address] [facility] [address] , ,[place] [address] PROTHROMBIN TIME 13.7 12.5-14.3 INR 1.03 REASON FOR VISIT [facility] ED FU MEDICAL (GENERAL) HISTORY Type Description Date Medical [...] Notes Treatment Notes Treatm ent Clinical Notes Dec, Cirrhosis of liver without a scites, unspecified hepatic cirrhosis type (ICD-10 - K74.60) Patient continues to follow with Dr. Landaverde's office, the notes I have received have been reviewed. We will recheck her labs. She continues to get paracentesis every 10 days. She states that she continues to have some abdominal pain and would like to stay on the tramadol at this point. I feel that if we can get better control of her fluid status she may be able to come off the tramadol at some point. We will continue to work toward this goal. Currently Dr. Landaverde is adjusting her diuretics so I will not make any changes today. Dec, Uncontrolled type 2 diabetes mellitus with insulin therapy (ICD-10 - E11.65) She would like the freestyle ralph which we have tried to give her in the past. I will try to get this again as it would be much more convenient for her. She has difficulty with glucose checks when trying to use the lancet on her fingers. She has a lot of pain at the sites where she uses the lancets. She has eye exam coming up. We will do a foot exam at her next appointment. Patient is not due for hemoglobin A1c recheck. Dec, Encounter for screening mamm ogram for malignant neoplasm of breast (ICD-10 - Z12.31) Dec, Medical orders for life-sust aining treatment (MOLST) form in chart (ICD-10 - Z78.9) Today we reviewed MOLST form. The patient has elected to be DNR with a trial of intubation if necessary. She would also like a trial of feeding tube if necessary. The form was completed and the original is kept by the patient while a copy has been scanned in her chart. Dec, Mobility impaired (ICD-10 - Z74.09) Patient has chronically impaired mobility due to her medical illnesses and associated chronic pain. The patient is depedendant on a wheelchair to get to appointments and needs assistance in order to move with the wheelchair due to her pain. Patient would benefit from an electronic wheelchair to help with her mobility and ability to complete daily tasks. PLAN OF TREATMENT Medication Medication Name Sig Start Date Stop Date Lancets - as directed for 30 days Jan, Ferrous Sulfate 325 (65 Fe) MG 1 tablet Orally Once a day for 30 days traMADol HCl 50 MG 1 tablet as needed Orally BIDPRN MDD: 2 for 28 days Jan, Treatment Notes Assessment Notes Clinical Notes Cirrhosis of liver without ascites, unspecified hepatic cirr hosis type Patient continues to follow with Dr. Landaverde's office, the notes I have received have been reviewed. We will recheck her labs. She continues to get paracentesis every 10 days. She states that she continues to have some abdominal pain and would like to stay on the tramadol at this point. I feel that if we can get better control of her fluid status she may be able to come off the tramadol at some point. We will continue to work toward this goal. Currently Dr. Landaverde is adjusting her diuretics so I will not make any changes today. Uncontrolled type 2 diabetes mellitus with insulin therapy She would like the freestyle ralph which we have tried to give her in the past. I will try to get this again as it would be much more convenient for her. She has difficulty with glucose checks when trying to use the lancet on her fingers. She has a lot of pain at the sites where she uses the lancets.She has eye exam coming up. We will do a foot exam at her next appointment. Patient is not due for hemoglobin A1c recheck. Medical orders for life-sustaining treatment (MOLST) form in chart Today we reviewed MOLST form. The patient has elected to be DNR with a trial of intubation if necessary. She would also like a trial of feeding tube if necessary. The form was completed and the original is kept by the patient while a copy has been scanned in her chart. Mobility impaired Patient has chronica lly impaired mobility due to her medical illnesses and associated chronic pain. The patient is depedendant on a wheelchair to get to appointments and needs assistance in order to move with the wheelchair due to her pain. Patient would benefit from an electronic wheelchair to help with her mobility and ability to complete daily tasks. Treatment Notes Test Name Order Date [facility] DIGITAL / HARDEEP BILATERAL MAMMO SCREENING (Ultraso und if indicated) 2021-01-17 Next Appt Details 4 Weeks Reason:DIABETES, CIRRHOSIS Provider Name:Kasey Keane, 02-24 01:45:00 PM, [address] [place] [address], , [place], [address], Provider Name:Radha Tejaldary, 2021-02-24 0 11:00:00 AM, [address] [place] [address] , [place], [address], Follow Up:4 WeeksDIABETES, CIRRHOSIS Insurance Providers Payer Name Payer Address Payer Phone Insured Name Patient Relati onship to Insured Coverage Start Date Coverage End Date [employer] [facility] [address] [facility] [phone] RUSSELL HUGHES self
--- OUTSIDE RECORDS SUMMARY | 2021-04-15 12:47 | CCD ---
Author Author [facility] Organization [facility] Address Unknown Phone Unavailable Care Team Providers Care Manager Corporate Name Role Phone Kasey Keane Unavailable PROBLEMS Type Condition ICD9-CM Code [id number] Code Onset Dates Condition S tatus W/U Status Risk SNOMED Code Notes Problem Irregular menstrual bleeding N92.6 Active confirme d 85293194 Problem Osteoarthritis of right shoulder, unspecified os teoarthritis type M19.011 Active confirmed 38962863 Problem Morbid (severe) obesity due to excess calories E66 .01 Active confirmed 935550973 Problem Chronic fatigue R53.82 Active confirmed 5270 2003 Problem Suspected sleep apnea G47.30 Active confirmed 57595747 Problem Type 2 diabetes mellitus with other diabetic kid soren complication E11.29 Active confirmed 39674664 Problem Hyperlipidemia, unspecified hyperlipidemia E78.5 Active confirmed 34540697 Problem Chronic pain due to trauma G89.21 Active confirmed 388254407 Problem Iron deficiency anemia, unspecified iron deficiency D50.9 Active confirmed 66406033 Problem Symptomatic menopausal or female climacteric states N95.1 Active confirmed 79362675 Problem Gastroesophageal reflux disease without esophagitis K21.9 Active confirmed 307480993 Problem Anxiety F41.9 Active confirmed 69828768 Problem Essential hypertension I10 Active confirmed 48938406 Problem Pancytopenia D61.818 Active confirmed 154041 005 Problem Type 2 diabetes mellitus wit hout complication, without long-term current use of insulin E11.9 Active confirmed 811601632 Problem Iron deficiency anemia, unspecified iron deficiency an emia type D50.9 Active confirmed 33749443 Problem Globus sensation F45.8 Active confirmed 888 85430 Problem Other iron deficiency anemia D50.8 Active confirme d 10196795 Problem Dysphagia, unspecified type R13.10 Active confirmed 26164624 Problem Sleep apnea, unspecified type G47.30 Active confirm ed 10188120 Problem TSH (thyroid-stimulating hormone deficiency) E03.8 Active confirmed 77662537 Problem Type 2 diabetes mellitus without complications E11 .9 Active confirmed 950043417 Problem Other chronic pain G89.29 Active confirmed 8 7867095 Problem 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 Z79.4 Active conf irmed 272928577 Problem Environmental allergies Z91.09 Active confirmed 344246991 Problem Vitamin D deficiency E55.9 Active confirmed 24929836 Problem Fatty liver K76.0 Active confirmed 75564202 7 Problem Type 2 diabetes mellitus wit hout complication, unspecified whether mcc insulin use E11.9 Active confirmed 837915389 Problem Other cirrhosis of liver K74.69 Active confirmed 72778357 Problem Excessive and frequent menstruation with regular cycle N92.0 Active confirmed 685041532 Problem Dysmenorrhea N94.6 Active confirmed 7411467 00 Problem 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 Active confirmed 26 5265311 Problem Thrombocytopenia D69.6 Active confirmed 415 690286 Problem Vaginal bleeding N93.9 Active confirmed 289 805914 Problem Cirrhosis of liver without ascites, unsp ecified hepatic cirrhosis type K74.60 Active confirmed 26279022 Problem History of hysterectomy Z90.710 Active confirmed 280728573 Problem Iron deficiency anemia, unspecified D50.9 Acti ve confirmed 43456442 Problem Major depressive disorder, recurrent, moderate F33 .1 Active confirmed 829437187 Problem Generalized anxiety disorder F41.1 Active confirme d 79868799 Problem Urinary tract infection, site not specified N39.0 Active confirmed 65536484 Problem Diabetic peripheral neuropathy associate d with type 2 diabetes mellitus E11.42 Active confirmed 3556608663689 Problem Gross hematuria R31.0 Active confirmed 1978 53157 Problem Obstructive sleep apnea G47.33 Active confirmed 99862116 Problem Other allergic rhinitis J30.89 Active confirmed 82153567 Problem Neuropathy G62.9 Active confirmed 942514215 Problem Proteinuria R80.9 Active confirmed 66361338 Problem alf (current) use of insulin Z79.4 Activ e confirmed 583422319 Problem Burning sensation of feet R20.8 Active confirmed 08695422 Problem Diabetic polyneuropathy associated with type 2 d iabetes mellitus E11.42 Active confirmed 861095691 Problem Insomnia, unspecified type G47.00 Active confirmed 662229366 Problem Diabetic autonomic neuropathy associated with type 2 diabetes mellitus E11.43 Active confirmed 597145302 Problem Uncontrolled type 2 diabetes mellitus with insulin therapy E11.65 Active confirmed 203699347589683 Problem Major depressive disorder, single episode, unspecified F32.9 Active confirmed 64193643 Problem Depression, unspecified depression type F32.9 Active confirmed 63161396 Problem History of anemia Z86.2 Active confirmed 27 6770714 Problem Gastroparesis K31.84 Active confirmed 688882 006 Problem Other ascites R18.8 Active confirmed 099613 000 Problem Nonalcoholic steatohepatitis (SÁNCHEZ) K75.81 Acti ve confirmed 356798089 ALLERGIES Allergen (clinical drug ingredient) Drug/Non Drug Allergy do cumented on EMR Reaction Allergy Type Onset Date Status hospital bracelets Rash Non Drug Allergy Active Adhesive Bandages Rash Drug Allergy Activ e ENCOUNTERS from 1966 to 2021-03-04 Encounter Location Date Provider Diagnosis [address] [phone] [place] [address] 10 Feb, 2021 Kasey Rodríguezsesian IMMUNIZATIONS Vaccine Route Administration Date Status Influenza [...] Education Language: Question Answer Notes Languages spoken: Bulgarian Muslim: Question Answer Notes Muslim 33 None Sexual Hx: Question Answer Notes [...] for 30 Active FreeStyle Ralph 14 Day [place] - 1 PER YEAR for 1 Active busPIRone HCl 10 MG 1 tab orally twice daily Active Aspirin 81 81 MG 1 tablet Orally Once a day for 30 Not-Taking Gabapentin 600 MG 1 tablet Orally three times daily for 30 day(s ) Jan, Not-Taking metFORMIN HCl 1000 MG 1 tablet with meals Orally Twice a day for 30 Active Pen [place] 31G X 6 MM icd: e11.65 for [...] for 30 Active FreeStyle Ralph 14 Day [place] - use as directed for co ntinuous [...] hours Orally Once a day Jul, Not-Ta Admelog 100 UNIT/ML 20 units Subcutaneous before [...] Information RESULTS No Results REASON FOR VISIT Physician Orders MEDICAL (GENERAL) HISTORY Type Description Date Medical [...] a day for 30 Next Appt Details Provider Name:Radha Jha, 2020-09-2 0 11:00:00 AM, [address], [place], [address], Provider Name:Kasey Annevasquez, 2020-06 01:45:00 PM, [address] [facility], , [place], [address], Insurance Providers Payer Name Payer Address Payer Phone Insured Name Patient Relati onship to Insured Coverage Start Date Coverage End Date [facility] COMM[facility] PLAN [facility] [address] [facility] [id number] RUSSELL HUGHES self
--- OUTSIDE RECORDS SUMMARY | 2021-04-15 12:47 | CCD ---
Author Author [facility] Organization [facility] Address Unknown Phone Unavailable Care Team Providers Care Nursing Program Manager Name Role Phone Kasey Keane Unavailable PROBLEMS Type Condition ICD9-CM Code ORY32-CY Code Onset Dates Condition S tatus W/U Status Risk SNOMED Code Notes Problem Irregular menstrual bleeding N92.6 Active confirme d 78973868 Problem Osteoarthritis of right shoulder, unspecified os teoarthritis type M19.011 Active confirmed 68046749 Problem Morbid (severe) obesity due to excess calories E66 .01 Active confirmed 948927549 Problem Chronic fatigue R53.82 Active confirmed 5270 2003 Problem Suspected sleep apnea G47.30 Active confirmed 59489233 Problem Type 2 diabetes mellitus with other diabetic kid soren complication E11.29 Active confirmed 07902671 Problem Hyperlipidemia, unspecified hyperlipidemia E78.5 Active confirmed 72188767 Problem Chronic pain due to trauma G89.21 Active confirmed 579472927 Problem Iron deficiency anemia, unspecified iron deficiency D50.9 Active confirmed 00343580 Problem Symptomatic menopausal or female climacteric states N95.1 Active confirmed 56324835 Problem Gastroesophageal reflux disease without esophagitis K21.9 Active confirmed 265938011 Problem Anxiety F41.9 Active confirmed 17442087 Problem Essential hypertension I10 Active confirmed 56831097 Problem Pancytopenia D61.818 Active confirmed 705955 005 Problem Type 2 diabetes mellitus wit hout complication, without long-term current use of insulin E11.9 Active confirmed 684786294 Problem Iron deficiency anemia, unspecified iron deficiency an emia type D50.9 Active confirmed 01445732 Problem Globus sensation F45.8 Active confirmed 888 72860 Problem Other iron deficiency anemia D50.8 Active confirme d 79968454 Problem Dysphagia, unspecified type R13.10 Active confirmed 16500263 Problem Sleep apnea, unspecified type G47.30 Active confirm ed 47971861 Problem TSH (thyroid-stimulating hormone deficiency) E03.8 Active confirmed 90250535 Problem Type 2 diabetes mellitus without complications E11 .9 Active confirmed 139172541 Problem Other chronic pain G89.29 Active confirmed 8 3931524 Problem 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.4 Active conf irmed 777553967 Problem Environmental allergies Z91.09 Active confirmed 341840360 Problem Vitamin D deficiency E55.9 Active confirmed 53295531 Problem Fatty liver K76.0 Active confirmed 69660926 7 Problem Type 2 diabetes mellitus wit hout complication, unspecified whether skilled nursing insulin use E11.9 Active confirmed 443101260 Problem Other cirrhosis of liver K74.69 Active confirmed 05967936 Problem Excessive and frequent menstruation with regular cycle N92.0 Active confirmed 881472845 Problem Dysmenorrhea N94.6 Active confirmed 0934958 00 Problem 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 Active confirmed 26 5026754 Problem Thrombocytopenia D69.6 Active confirmed 415 944901 Problem Vaginal bleeding N93.9 Active confirmed 289 245505 Problem Cirrhosis of liver without ascites, unsp ecified hepatic cirrhosis type K74.60 Active confirmed 28523898 Problem History of hysterectomy Z90.710 Active confirmed 095179328 Problem Iron deficiency anemia, unspecified D50.9 Acti ve confirmed 07320696 Problem Major depressive disorder, recurrent, moderate F33 .1 Active confirmed 079098495 Problem Generalized anxiety disorder F41.1 Active confirme d 66587757 Problem Urinary tract infection, site not specified N39.0 Active confirmed 75259305 Problem Diabetic peripheral neuropathy associate d with type 2 diabetes mellitus E11.42 Active confirmed 7207590893101 Problem Gross hematuria R31.0 Active confirmed 1978 73938 Problem Obstructive sleep apnea G47.33 Active confirmed 83610942 Problem Other allergic rhinitis J30.89 Active confirmed 36094561 Problem Neuropathy G62.9 Active confirmed 144484244 Problem Proteinuria R80.9 Active confirmed 62463574 Problem residential (current) use of insulin Z79.4 Activ e confirmed 963134731 Problem Burning sensation of feet R20.8 Active confirmed 03539723 Problem Diabetic polyneuropathy associated with type 2 d iabetes mellitus E11.42 Active confirmed 444083597 Problem Insomnia, unspecified type G47.00 Active confirmed 241493748 Problem Diabetic autonomic neuropathy associated with type 2 diabetes mellitus E11.43 Active confirmed 200619844 Problem Uncontrolled type 2 diabetes mellitus with insulin therapy E11.65 Active confirmed 106333609231908 Problem Major depressive disorder, single episode, unspecified F32.9 Active confirmed 53480065 Problem Depression, unspecified depression type F32.9 Active confirmed 97999856 Problem History of anemia Z86.2 Active confirmed 27 9837915 Problem Gastroparesis K31.84 Active confirmed 365956 006 Problem Other ascites R18.8 Active confirmed 547544 000 Problem Nonalcoholic steatohepatitis (SÁNCHEZ) K75.81 Acti ve confirmed 697598628 ALLERGIES Allergen (clinical drug ingredient) Drug/Non Drug Allergy do cumented on EMR Reaction Allergy Type Onset Date Status hospital bracelets Rash Non Drug Allergy Active Adhesive Bandages Rash Drug Allergy Activ e ENCOUNTERS from 1966 to 2021-03-01 Encounter Location Date Provider Diagnosis [address] [phone] [place] [address] Dec, Kasey Rodríguezseantoniaan IMMUNIZATIONS Vaccine Route Administration Date Status Influenza [...] Education Language: Question Answer Notes Languages spoken: Amharic Pentecostal: Question Answer Notes Pentecostal 33 None Sexual Hx: Question Answer Notes [...] for 30 Active FreeStyle Ralph 14 Day [place] - 1 PER YEAR for 1 Active busPIRone HCl 10 MG 1 tab orally twice daily Active Aspirin 81 81 MG 1 tablet Orally Once a day for 30 Not-Taking Gabapentin 600 MG 1 tablet Orally three times daily for 30 day(s ) Jan, Not-Taking metFORMIN HCl 1000 MG 1 tablet with meals Orally Twice a day for 30 Active Pen [place] 31G X 6 MM icd: e11.65 for [...] for 30 Active FreeStyle Ralph 14 Day [place] - use as directed for co ntinuous [...] Information RESULTS No Results REASON FOR VISIT electric Wheelchair MEDICAL (GENERAL) HISTORY Type Description Date Medical [...] Name:Radha Jha, 2020-09-2 0 11:00:00 AM, [address] [facility], , [place], [address], Provider Name:Kasey Annefredhimanshu, 2020-06 01:45:00 PM, [address] [facility], , [place], [address], Insurance Providers Payer Name Payer Address Payer Phone Insured Name Patient Relati onship to Insured Coverage Start Date Coverage End Date [facility] COMMUN[facility] PLAN [facility] [address] [facility] [address] RUSSELL HUGHES self
--- OUTSIDE RECORDS SUMMARY | 2021-04-15 12:47 | CCD ---
Author Author [facility] Organization [facility] Address Unknown Phone Unavailable Care Team Providers Care Scratch Brusher Name Role Phone Kasey Keane Unavailable PROBLEMS Type Condition ICD9-CM Code XHZ40-FT Code Onset Dates Condition S tatus W/U Status Risk SNOMED Code Notes Problem Irregular menstrual bleeding N92.6 Active confirme d 40760275 Problem Osteoarthritis of right shoulder, unspecified os teoarthritis type M19.011 Active confirmed 75215112 Problem Morbid (severe) obesity due to excess calories E66 .01 Active confirmed 924486647 Problem Chronic fatigue R53.82 Active confirmed 5270 2003 Problem Suspected sleep apnea G47.30 Active confirmed 77657834 Problem Type 2 diabetes mellitus with other diabetic kid soren complication E11.29 Active confirmed 82552990 Problem Hyperlipidemia, unspecified hyperlipidemia E78.5 Active confirmed 77137912 Problem Chronic pain due to trauma G89.21 Active confirmed 881801585 Problem Iron deficiency anemia, unspecified iron deficiency D50.9 Active confirmed 35625803 Problem Symptomatic menopausal or female climacteric states N95.1 Active confirmed 75760896 Problem Gastroesophageal reflux disease without esophagitis K21.9 Active confirmed 435794824 Problem Anxiety F41.9 Active confirmed 61913909 Problem Essential hypertension I10 Active confirmed 46368980 Problem Pancytopenia D61.818 Active confirmed 581512 005 Problem Type 2 diabetes mellitus wit hout complication, without long-term current use of insulin E11.9 Active confirmed 287845457 Problem Iron deficiency anemia, unspecified iron deficiency an emia type D50.9 Active confirmed 17421074 Problem Globus sensation F45.8 Active confirmed 888 30786 Problem Other iron deficiency anemia D50.8 Active confirme d 43560397 Problem Dysphagia, unspecified type R13.10 Active confirmed 15657437 Problem Sleep apnea, unspecified type G47.30 Active confirm ed 56684210 Problem TSH (thyroid-stimulating hormone deficiency) E03.8 Active confirmed 84152946 Problem Type 2 diabetes mellitus without complications E11 .9 Active confirmed 586247272 Problem Other chronic pain G89.29 Active confirmed 8 1410739 Problem 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 Z79.4 Active conf irmed 414501693 Problem Environmental allergies Z91.09 Active confirmed 480954345 Problem Vitamin D deficiency E55.9 Active confirmed 20918435 Problem Fatty liver K76.0 Active confirmed 79737063 7 Problem Type 2 diabetes mellitus wit hout complication, unspecified whether usp insulin use E11.9 Active confirmed 152340876 Problem Other cirrhosis of liver K74.69 Active confirmed 24726343 Problem Excessive and frequent menstruation with regular cycle N92.0 Active confirmed 816522937 Problem Dysmenorrhea N94.6 Active confirmed 9090161 00 Problem 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 Active confirmed 26 1812308 Problem Thrombocytopenia D69.6 Active confirmed 415 342707 Problem Vaginal bleeding N93.9 Active confirmed 289 861930 Problem Cirrhosis of liver without ascites, unsp ecified hepatic cirrhosis type K74.60 Active confirmed 42344157 Problem History of hysterectomy Z90.710 Active confirmed 197109235 Problem Iron deficiency anemia, unspecified D50.9 Acti ve confirmed 41544630 Problem Major depressive disorder, recurrent, moderate F33 .1 Active confirmed 621288219 Problem Generalized anxiety disorder F41.1 Active confirme d 17689104 Problem Urinary tract infection, site not specified N39.0 Active confirmed 05602390 Problem Diabetic peripheral neuropathy associate d with type 2 diabetes mellitus E11.42 Active confirmed 0786750086351 Problem Gross hematuria R31.0 Active confirmed 1978 10972 Problem Obstructive sleep apnea G47.33 Active confirmed 19238793 Problem Other allergic rhinitis J30.89 Active confirmed 76908915 Problem Neuropathy G62.9 Active confirmed 384011233 Problem Proteinuria R80.9 Active confirmed 86208821 Problem nursing home (current) use of insulin Z79.4 Activ e confirmed 864057680 Problem Burning sensation of feet R20.8 Active confirmed 67325936 Problem Diabetic polyneuropathy associated with type 2 d iabetes mellitus E11.42 Active confirmed 358758572 Problem Insomnia, unspecified type G47.00 Active confirmed 231197540 Problem Diabetic autonomic neuropathy associated with type 2 diabetes mellitus E11.43 Active confirmed 396108307 Problem Uncontrolled type 2 diabetes mellitus with insulin therapy E11.65 Active confirmed 321153578860920 Problem Major depressive disorder, single episode, unspecified F32.9 Active confirmed 68698026 Problem Depression, unspecified depression type F32.9 Active confirmed 86156566 Problem History of anemia Z86.2 Active confirmed 27 2228423 Problem Gastroparesis K31.84 Active confirmed 814340 006 Problem Other ascites R18.8 Active confirmed 984375 000 Problem Nonalcoholic steatohepatitis (SÁNCHEZ) K75.81 Acti ve confirmed 408089572 ALLERGIES Allergen (clinical drug ingredient) Drug/Non Drug Allergy do cumented on EMR Reaction Allergy Type Onset Date Status hospital bracelets Rash Non Drug Allergy Active Adhesive Bandages Rash Drug Allergy Activ e ENCOUNTERS from 1966 to 2021-03-24 Encounter Location Date Provider Diagnosis [address] [phone] [place] [address] Feb, Kasey Rodríguezsesian IMMUNIZATIONS Vaccine Route Administration Date [...] Education Language: Question Answer Notes Languages spoken: Bengali Tenriism: Question Answer Notes Tenriism 33 None Sexual Hx: Question Answer Notes [...] for 30 Active FreeStyle Ralph [address] [place] - 1 PER YEAR for 1 Active busPIRone HCl 10 MG 1 tab orally twice daily Active Aspirin 81 81 MG 1 tablet Orally Once a day for 30 Not-Taking Gabapentin 600 MG 1 tablet Orally three times daily for 30 day(s ) Jan, Not-Taking metFORMIN HCl 1000 MG 1 tablet with meals Orally Twice a day for 30 Active Pen [place] 31G X 6 MM icd: e11.65 for [...] for 30 Active FreeStyle Ralph [address] [place] - use as directed for co ntinuous [...] Information RESULTS No Results REASON FOR VISIT elevated FS MEDICAL (GENERAL) HISTORY Type Description Date Medical [...] day for 30 Next Appt Details Provider Name:Kasey Keane, 2020- 0-08 01:45:00 PM, [address] [place] [address], , [place], [address], Provider Name:Radha Jha, 2020-10-1 8 01:00:00 PM, [address] [facility], , [place], [address], Insurance Providers Payer Name Payer Address Payer Phone Insured Name Patient Relati onship to Insured Coverage Start Date Coverage End Date [facility] [address] [facility] [phone] RUSSELL HUGHES self
--- OUTSIDE RECORDS SUMMARY | 2021-04-15 12:47 | CCD ---
Author Author [facility] Organization [facility] Address Unknown Phone Unavailable Care Team Providers Care Toll Booth Operator Name Role Phone Kasey Keane Unavailable PROBLEMS Type Condition ICD9-CM Code [id number] Code Onset Dates Condition S tatus W/U Status Risk SNOMED Code Notes Problem Morbid (severe) obesity due to excess calories E66 .01 Active confirmed 182705196 Problem Suspected sleep apnea G47.30 Active confirmed 02152756 Problem Osteoarthritis of right shoulder, unspecified os teoarthritis type M19.011 Active confirmed 83391739 Problem TSH (thyroid-stimulating hormone deficiency) E03.8 Active confirmed 13682604 Problem Chronic fatigue R53.82 Active confirmed 5270 2003 Problem MCC (current) use of insulin Z79.4 Activ e confirmed 910431171 Problem Gastroesophageal reflux disease without esophagitis K21.9 Active confirmed 518101275 Problem Type 2 diabetes mellitus with other diabetic kid soren complication E11.29 Active confirmed 36302483 Problem Hyperlipidemia, unspecified hyperlipidemia E78.5 Active confirmed 26848375 Problem Essential hypertension I10 Active confirmed 90078628 Problem Symptomatic menopausal or female climacteric states N95.1 Active confirmed 91504728 Problem Irregular menstrual bleeding N92.6 Active confirme d 16888818 Problem Anxiety F41.9 Active confirmed 26830052 Problem Type 2 diabetes mellitus wit hout complication, without long-term current use of insulin E11.9 Active confirmed 805141320 Problem Globus sensation F45.8 Active confirmed 888 85282 Problem Dysphagia, unspecified type R13.10 Active confirmed 46529715 Problem Iron deficiency anemia, unspecified iron deficiency an emia type D50.9 Active confirmed 28699272 Problem Thrombocytopenia D69.6 Active confirmed 415 170472 Problem Other iron deficiency anemia D50.8 Active confirme d 65676857 Problem Other chronic pain G89.29 Active confirmed 8 1099200 Problem Sleep apnea, unspecified type G47.30 Active confirm ed 47644762 Problem 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 Z79.4 Active conf irmed 713375727 Problem Type 2 diabetes mellitus without complications E11 .9 Active confirmed 199703114 Problem Pancytopenia D61.818 Active confirmed 062782 005 Problem Fatty liver K76.0 Active confirmed 81613619 7 Problem Other cirrhosis of liver K74.69 Active confirmed 53020025 Problem Vitamin D deficiency E55.9 Active confirmed 75775815 Problem Dysmenorrhea N94.6 Active confirmed 7148388 00 Problem Type 2 diabetes mellitus wit hout complication, unspecified whether fpc insulin use E11.9 Active confirmed 961351370 Problem Major depressive disorder, single episode, unspecified F32.9 Active confirmed 13625990 Problem Excessive and frequent menstruation with regular cycle N92.0 Active confirmed 753753546 Problem Cirrhosis of liver without ascites, unsp ecified hepatic cirrhosis type K74.60 Active confirmed 81704399 Problem 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 Active confirmed 26 8431882 Problem Environmental allergies Z91.09 Active confirmed 610712422 Problem Vaginal bleeding N93.9 Active confirmed 289 070089 Problem Generalized anxiety disorder F41.1 Active confirme d 17065982 Problem History of hysterectomy Z90.710 Active confirmed 873445073 Problem Gross hematuria R31.0 Active confirmed 1979 24447 Problem Major depressive disorder, recurrent, moderate F33 .1 Active confirmed 509460196 Problem Neuropathy G62.9 Active confirmed 688000280 Problem Proteinuria R80.9 Active confirmed 24443210 Problem Urinary tract infection, site not specified N39.0 Active confirmed 83164945 Problem Diabetic peripheral neuropathy associate d with type 2 diabetes mellitus E11.42 Active confirmed 8323126058437 Problem Chronic pain due to trauma G89.21 Active confirmed 562011569 Problem Iron deficiency anemia, unspecified iron deficiency D50.9 Active confirmed 60559706 Problem Obstructive sleep apnea G47.33 Active confirmed 20003271 Problem Other allergic rhinitis J30.89 Active confirmed 97017792 Problem Burning sensation of feet R20.8 Active confirmed 42447446 Problem Diabetic polyneuropathy associated with type 2 d iabetes mellitus E11.42 Active confirmed 474042228 Problem History of anemia Z86.2 Active confirmed 27 6032545 Problem Uncontrolled type 2 diabetes mellitus with insulin therapy E11.65 Active confirmed 275354594138090 Problem Depression, unspecified depression type F32.9 Active confirmed 24471001 Problem Unspecified cirrhosis of liver K74.60 Active confir med 76216607 Problem Diabetic autonomic neuropathy associated with type 2 diabetes mellitus E11.43 Active confirmed 189920054 Problem Iron deficiency anemia, unspecified D50.9 Acti ve confirmed 45853020 Problem Gastroparesis K31.84 Active confirmed 464102 006 Problem Other ascites R18.8 Active confirmed 740788 000 Problem Nonalcoholic steatohepatitis (SÁNCHEZ) K75.81 Acti ve confirmed 892645088 Problem Insomnia, unspecified type G47.00 Active confirmed 534967289 ALLERGIES Allergen (clinical drug ingredient) Drug/Non Drug Allergy do cumented on EMR Reaction Allergy Type Onset Date Status hospital bracelets Rash Non Drug Allergy Active Adhesive Bandages Rash Drug Allergy Activ e ENCOUNTERS from 1966 to 2021-03-25 Encounter Location Date Provider Diagnosis [address] [phone] [place] [address] Mar, Kasey Movsesian IMMUNIZATIONS Vaccine Route Administration [...] Education Language: Question Answer Notes Languages spoken: Japanese Mandaeism: Question Answer Notes Mandaeism 33 None Sexual Hx: Question Answer Notes [...] for 30 Active FreeStyle Ralph 14 Day [place] - 1 PER YEAR for 1 Active busPIRone HCl 10 MG 1 tab orally twice daily Active Aspirin 81 81 MG 1 tablet Orally Once a day for 30 Not-Taking Gabapentin 600 MG 1 tablet Orally three times daily for 30 day(s ) Jan, Not-Taking metFORMIN HCl 1000 MG 1 tablet with meals Orally Twice a day for 30 Active Pen [place] 31G X 6 MM icd: e11.65 for [...] for 30 Active FreeStyle Ralph 14 Day [place] - use as directed for co ntinuous [...] Information RESULTS No Results REASON FOR VISIT high blood sugar MEDICAL (GENERAL) HISTORY Type Description Date Medical [...] 30 Next Appt Details Provider Name:Kasey Keane, 2020-06 0-08 01:45:00 PM, [address] [facility], , [place], [address], Provider Name:Radha Jha, 2021-03-25 8 01:00:00 PM, [address] [facility], , [place], [address], Insurance Providers Payer Name Payer Address Payer Phone Insured Name Patient Relati onship to Insured Coverage Start Date Coverage End Date [facility] COMMUNITY PLAN [place] [address] [facility] [id number] [phone] RUSSELL HUGHES self
--- OUTSIDE RECORDS SUMMARY | 2021-04-15 12:47 | CCD ---
Author Author [facility] Organization [facility] Address Unknown Phone Unavailable Care Team Providers Care Territory Account Manager Name Role Phone Kasey Keane Unavailable PROBLEMS Type Condition ICD9-CM Code NAZ39-[id number] Code Onset Dates Condition S tatus W/U Status Risk SNOMED Code Notes Problem Irregular menstrual bleeding N92.6 Active confirme d 57296182 Problem Osteoarthritis of right shoulder, unspecified os teoarthritis type M19.011 Active confirmed 38114106 Problem Morbid (severe) obesity due to excess calories E66 .01 Active confirmed 978950580 Problem Chronic fatigue R53.82 Active confirmed 5270 2003 Problem Suspected sleep apnea G47.30 Active confirmed 63496024 Problem Type 2 diabetes mellitus with other diabetic kid soren complication E11.29 Active confirmed 23335157 Problem Hyperlipidemia, unspecified hyperlipidemia E78.5 Active confirmed 55308704 Problem Chronic pain due to trauma G89.21 Active confirmed 648964957 Problem Iron deficiency anemia, unspecified iron deficiency D50.9 Active confirmed 45098258 Problem Symptomatic menopausal or female climacteric states N95.1 Active confirmed 38663285 Problem Gastroesophageal reflux disease without esophagitis K21.9 Active confirmed 483786377 Problem Anxiety F41.9 Active confirmed 07606719 Problem Essential hypertension I10 Active confirmed 98052330 Problem Pancytopenia D61.818 Active confirmed 677264 005 Problem Type 2 diabetes mellitus wit hout complication, without long-term current use of insulin E11.9 Active confirmed 577402584 Problem Iron deficiency anemia, unspecified iron deficiency an emia type D50.9 Active confirmed 02153672 Problem Globus sensation F45.8 Active confirmed 888 25708 Problem Other iron deficiency anemia D50.8 Active confirme d 39993592 Problem Dysphagia, unspecified type R13.10 Active confirmed 33762131 Problem Sleep apnea, unspecified type G47.30 Active confirm ed 45448227 Problem TSH (thyroid-stimulating hormone deficiency) E03.8 Active confirmed 69237305 Problem Type 2 diabetes mellitus without complications E11 .9 Active confirmed 971437138 Problem Other chronic pain G89.29 Active confirmed 8 8778406 Problem 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.4 Active conf irmed 834021711 Problem Environmental allergies Z91.09 Active confirmed 256281668 Problem Vitamin D deficiency E55.9 Active confirmed 66864563 Problem Fatty liver K76.0 Active confirmed 93383363 7 Problem Type 2 diabetes mellitus wit hout complication, unspecified whether mcc insulin use E11.9 Active confirmed 972439692 Problem Other cirrhosis of liver K74.69 Active confirmed 72729801 Problem Excessive and frequent menstruation with regular cycle N92.0 Active confirmed 915269289 Problem Dysmenorrhea N94.6 Active confirmed 0456494 00 Problem 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 Active confirmed 26 7853869 Problem Thrombocytopenia D69.6 Active confirmed 415 565445 Problem Vaginal bleeding N93.9 Active confirmed 289 503792 Problem Cirrhosis of liver without ascites, unsp ecified hepatic cirrhosis type K74.60 Active confirmed 66836409 Problem History of hysterectomy Z90.710 Active confirmed 780146543 Problem Iron deficiency anemia, unspecified D50.9 Acti ve confirmed 01823740 Problem Major depressive disorder, recurrent, moderate F33 .1 Active confirmed 021968967 Problem Generalized anxiety disorder F41.1 Active confirme d 87939238 Problem Urinary tract infection, site not specified N39.0 Active confirmed 77973897 Problem Diabetic peripheral neuropathy associate d with type 2 diabetes mellitus E11.42 Active confirmed 0858972791774 Problem Gross hematuria R31.0 Active confirmed 1978 48455 Problem Obstructive sleep apnea G47.33 Active confirmed 59471210 Problem Other allergic rhinitis J30.89 Active confirmed 84967689 Problem Neuropathy G62.9 Active confirmed 592787084 Problem Proteinuria R80.9 Active confirmed 61101485 Problem prison (current) use of insulin Z79.4 Activ e confirmed 285274265 Problem Burning sensation of feet R20.8 Active confirmed 44560474 Problem Diabetic polyneuropathy associated with type 2 d iabetes mellitus E11.42 Active confirmed 236509040 Problem Insomnia, unspecified type G47.00 Active confirmed 586535057 Problem Diabetic autonomic neuropathy associated with type 2 diabetes mellitus E11.43 Active confirmed 432939112 Problem Uncontrolled type 2 diabetes mellitus with insulin therapy E11.65 Active confirmed 722771524979618 Problem Major depressive disorder, single episode, unspecified F32.9 Active confirmed 30709455 Problem Depression, unspecified depression type F32.9 Active confirmed 60862744 Problem History of anemia Z86.2 Active confirmed 27 6605707 Problem Gastroparesis K31.84 Active confirmed 822214 006 Problem Other ascites R18.8 Active confirmed 679079 000 Problem Nonalcoholic steatohepatitis (SÁNCHEZ) K75.81 Acti ve confirmed 853760155 ALLERGIES Allergen (clinical drug ingredient) Drug/Non Drug Allergy do cumented on EMR Reaction Allergy Type Onset Date Status hospital bracelets Rash Non Drug Allergy Active Adhesive Bandages Rash Drug Allergy Activ e ENCOUNTERS from 1966 to 2021-03-17 Encounter Location Date Provider Diagnosis [address] [phone] [place] [address] Feb, Kasey Rodríguezsesian IMMUNIZATIONS Vaccine Route Administration [...] Education Language: Question Answer Notes Languages spoken: Hebrew Evangelical: Question Answer Notes Evangelical 33 None Sexual Hx: Question Answer Notes [...] for 30 Active FreeStyle Ralph 14 Day [place] - 1 PER YEAR for 1 Active busPIRone HCl 10 MG 1 tab orally twice daily Active Aspirin 81 81 MG 1 tablet Orally Once a day for 30 Not-Taking Gabapentin 600 MG 1 tablet Orally three times daily for 30 day(s ) Jan, Not-Taking metFORMIN HCl 1000 MG 1 tablet with meals Orally Twice a day for 30 Active Pen [place] 31G X 6 MM icd: e11.65 for [...] for 30 Active FreeStyle Ralph 14 Day [place] - use as directed for co ntinuous [...] Information RESULTS No Results REASON FOR VISIT Abdominal pain MEDICAL (GENERAL) HISTORY Type Description Date Medical [...] Next Appt Details Provider Name:Radha Jha, 2020-09-2 7 11:00:00 AM, [address], [place], [address], Provider Name:Kasey Annevasquez, 2020-06 01:45:00 PM, [address] [facility], , [place], [address], Insurance Providers Payer Name Payer Address Payer Phone Insured Name Patient Relati onship to Insured Coverage Start Date Coverage End Date [facility] COMMUNITY PLAN [facility] [address] [facility] [phone] RUSSELL HUGHES self
--- OUTSIDE RECORDS SUMMARY | 2021-04-15 12:47 | CCD ---
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 Name Role Phone Kasey Keane Unavailable PROBLEMS Type Condition ICD9-CM Code KKS51-[id number] Code Onset Dates Condition S tatus W/U Status Risk SNOMED Code Notes Problem Irregular menstrual bleeding N92.6 Active confirme d 27677107 Problem Osteoarthritis of right shoulder, unspecified os teoarthritis type M19.011 Active confirmed 09814592 Problem Morbid (severe) obesity due to excess calories E66 .01 Active confirmed 871161656 Problem Chronic fatigue R53.82 Active confirmed 5270 2003 Problem Suspected sleep apnea G47.30 Active confirmed 42995065 Problem Type 2 diabetes mellitus with other diabetic kid soren complication E11.29 Active confirmed 42424956 Problem Hyperlipidemia, unspecified hyperlipidemia E78.5 Active confirmed 36096593 Problem Chronic pain due to trauma G89.21 Active confirmed 393973721 Problem Iron deficiency anemia, unspecified iron deficiency D50.9 Active confirmed 28153122 Problem Symptomatic menopausal or female climacteric states N95.1 Active confirmed 57509859 Problem Gastroesophageal reflux disease without esophagitis K21.9 Active confirmed 449442913 Problem Anxiety F41.9 Active confirmed 74900269 Problem Essential hypertension I10 Active confirmed 51923587 Problem Pancytopenia D61.818 Active confirmed 006458 005 Problem Type 2 diabetes mellitus wit hout complication, without long-term current use of insulin E11.9 Active confirmed 449256200 Problem Iron deficiency anemia, unspecified iron deficiency an emia type D50.9 Active confirmed 24347202 Problem Globus sensation F45.8 Active confirmed 888 63997 Problem Other iron deficiency anemia D50.8 Active confirme d 61714349 Problem Dysphagia, unspecified type R13.10 Active confirmed 92104414 Problem Sleep apnea, unspecified type G47.30 Active confirm ed 92776540 Problem TSH (thyroid-stimulating hormone deficiency) E03.8 Active confirmed 87861725 Problem Type 2 diabetes mellitus without complications E11 .9 Active confirmed 954259721 Problem Other chronic pain G89.29 Active confirmed 8 1248146 Problem 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.4 Active conf irmed 145510734 Problem Environmental allergies Z91.09 Active confirmed 676189354 Problem Vitamin D deficiency E55.9 Active confirmed 17268921 Problem Fatty liver K76.0 Active confirmed 32779690 7 Problem Type 2 diabetes mellitus wit hout complication, unspecified whether alf insulin use E11.9 Active confirmed 581624872 Problem Other cirrhosis of liver K74.69 Active confirmed 81051306 Problem Excessive and frequent menstruation with regular cycle N92.0 Active confirmed 126146647 Problem Dysmenorrhea N94.6 Active confirmed 2285670 00 Problem 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 Active confirmed 26 1394196 Problem Thrombocytopenia D69.6 Active confirmed 415 082147 Problem Vaginal bleeding N93.9 Active confirmed 289 166548 Problem Cirrhosis of liver without ascites, unsp ecified hepatic cirrhosis type K74.60 Active confirmed 38221618 Problem History of hysterectomy Z90.710 Active confirmed 218005608 Problem Iron deficiency anemia, unspecified D50.9 Acti ve confirmed 39683932 Problem Major depressive disorder, recurrent, moderate F33 .1 Active confirmed 123486047 Problem Generalized anxiety disorder F41.1 Active confirme d 06816193 Problem Urinary tract infection, site not specified N39.0 Active confirmed 22590646 Problem Diabetic peripheral neuropathy associate d with type 2 diabetes mellitus E11.42 Active confirmed 3695784291988 Problem Gross hematuria R31.0 Active confirmed 1978 68845 Problem Obstructive sleep apnea G47.33 Active confirmed 31843448 Problem Other allergic rhinitis J30.89 Active confirmed 67427481 Problem Neuropathy G62.9 Active confirmed 606292914 Problem Proteinuria R80.9 Active confirmed 61448224 Problem intermediate (current) use of insulin Z79.4 Activ e confirmed 614085384 Problem Burning sensation of feet R20.8 Active confirmed 22152299 Problem Diabetic polyneuropathy associated with type 2 d iabetes mellitus E11.42 Active confirmed 660673221 Problem Insomnia, unspecified type G47.00 Active confirmed 497575956 Problem Diabetic autonomic neuropathy associated with type 2 diabetes mellitus E11.43 Active confirmed 154396561 Problem Uncontrolled type 2 diabetes mellitus with insulin therapy E11.65 Active confirmed 258465586706450 Problem Major depressive disorder, single episode, unspecified F32.9 Active confirmed 16953006 Problem Depression, unspecified depression type F32.9 Active confirmed 49701908 Problem History of anemia Z86.2 Active confirmed 27 4917290 Problem Gastroparesis K31.84 Active confirmed 430904 006 Problem Other ascites R18.8 Active confirmed 653921 000 Problem Nonalcoholic steatohepatitis (SÁNCHEZ) K75.81 Acti ve confirmed 867448298 ALLERGIES Allergen (clinical drug ingredient) Drug/Non Drug Allergy do cumented on EMR Reaction Allergy Type Onset Date Status hospital bracelets Rash Non Drug Allergy Active Adhesive Bandages Rash Drug Allergy Activ e ENCOUNTERS from 1966 to 2021-03-03 Encounter Location Date Provider Diagnosis [address] [phone] [place] [address] Feb, Kasey Rodríguezseantoniaan IMMUNIZATIONS Vaccine Route Administration Date [...] Education Language: Question Answer Notes Languages spoken: Urdu Tenriism: Question Answer Notes Tenriism 33 None [...] for 30 Active FreeStyle Ralph 14 Day [place] - 1 PER YEAR for 1 Active busPIRone HCl 10 MG 1 tab orally twice daily Active Aspirin 81 81 MG 1 tablet Orally Once a day for 30 Not-Taking Gabapentin 600 MG 1 tablet Orally three times daily for 30 day(s ) Jan, Not-Taking metFORMIN HCl 1000 MG 1 tablet with meals Orally Twice a day for 30 Active Pen [place] 31G X 6 MM icd: e11.65 for [...] for 30 Active FreeStyle Ralph 14 Day [place] - use as directed for co ntinuous [...] Information RESULTS No Results REASON FOR VISIT vomiting/shaking MEDICAL (GENERAL) HISTORY Type Description Date Medical [...] Name:Radha Jha, 2020-09-2 0 11:00:00 AM, [address] [facility], , [place], [address], Provider Name:Kasey Annefredhimanshu, 2020-06 01:45:00 PM, [address] [facility], , [place], [address], Insurance Providers Payer Name Payer Address Payer Phone Insured Name Patient Relati onship to Insured Coverage Start Date Coverage End Date [facility] COMMUNITY PLAN [facility] [address] [facility] [phone] RUSSELL HUGHES self
--- OUTSIDE RECORDS SUMMARY | 2021-04-15 12:47 | CCD ---
Author Author [facility] Organization [facility] Address Unknown Phone Unavailable Care Team Providers Care Supervisor Compounding And Finishing Name Role Phone Kasey Keane Unavailable PROBLEMS Type Condition ICD9-CM Code [id number] Code Onset Dates Condition S tatus W/U Status Risk SNOMED Code Notes Problem Irregular menstrual bleeding N92.6 Active confirme d 96337542 Problem Osteoarthritis of right shoulder, unspecified os teoarthritis type M19.011 Active confirmed 37739881 Problem Morbid (severe) obesity due to excess calories E66 .01 Active confirmed 661002764 Problem Chronic fatigue R53.82 Active confirmed 5270 2003 Problem Suspected sleep apnea G47.30 Active confirmed 44805133 Problem Type 2 diabetes mellitus with other diabetic kid soren complication E11.29 Active confirmed 23395801 Problem Hyperlipidemia, unspecified hyperlipidemia E78.5 Active confirmed 88478010 Problem Chronic pain due to trauma G89.21 Active confirmed 608809698 Problem Iron deficiency anemia, unspecified iron deficiency D50.9 Active confirmed 78418796 Problem Symptomatic menopausal or female climacteric states N95.1 Active confirmed 64691065 Problem Gastroesophageal reflux disease without esophagitis K21.9 Active confirmed 990947628 Problem Anxiety F41.9 Active confirmed 30200704 Problem Essential hypertension I10 Active confirmed 59588890 Problem Pancytopenia D61.818 Active confirmed 752481 005 Problem Type 2 diabetes mellitus wit hout complication, without long-term current use of insulin E11.9 Active confirmed 009338142 Problem Iron deficiency anemia, unspecified iron deficiency an emia type D50.9 Active confirmed 78859883 Problem Globus sensation F45.8 Active confirmed 888 83211 Problem Other iron deficiency anemia D50.8 Active confirme d 12306936 Problem Dysphagia, unspecified type R13.10 Active confirmed 55322422 Problem Sleep apnea, unspecified type G47.30 Active confirm ed 58888879 Problem TSH (thyroid-stimulating hormone deficiency) E03.8 Active confirmed 83992125 Problem Type 2 diabetes mellitus without complications E11 .9 Active confirmed 020077410 Problem Other chronic pain G89.29 Active confirmed 8 2973878 Problem terminal carman current use of insulin Z79.4 Active conf irmed 120224176 Problem Environmental allergies Z91.09 Active confirmed 645658414 Problem Vitamin D deficiency E55.9 Active confirmed 77802166 Problem Fatty liver K76.0 Active confirmed 74846218 7 Problem Type 2 diabetes mellitus wit hout complication, unspecified whether usp insulin use E11.9 Active confirmed 935563352 Problem Other cirrhosis of liver K74.69 Active confirmed 55545997 Problem Excessive and frequent menstruation with regular cycle N92.0 Active confirmed 258090524 Problem Dysmenorrhea N94.6 Active confirmed 2084016 00 Problem 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 Active confirmed 26 7367603 Problem Thrombocytopenia D69.6 Active confirmed 415 427572 Problem Vaginal bleeding N93.9 Active confirmed 289 620261 Problem Cirrhosis of liver without ascites, unsp ecified hepatic cirrhosis type K74.60 Active confirmed 13329492 Problem History of hysterectomy Z90.710 Active confirmed 600362364 Problem Iron deficiency anemia, unspecified D50.9 Acti ve confirmed 93140142 Problem Major depressive disorder, recurrent, moderate F33 .1 Active confirmed 108478733 Problem Generalized anxiety disorder F41.1 Active confirme d 55714273 Problem Urinary tract infection, site not specified N39.0 Active confirmed 58691656 Problem Diabetic peripheral neuropathy associate d with type 2 diabetes mellitus E11.42 Active confirmed 5751132121951 Problem Gross hematuria R31.0 Active confirmed 1978 32075 Problem Obstructive sleep apnea G47.33 Active confirmed 01245949 Problem Other allergic rhinitis J30.89 Active confirmed 18651379 Problem Neuropathy G62.9 Active confirmed 435989599 Problem Proteinuria R80.9 Active confirmed 06346417 Problem longterm (current) use of insulin Z79.4 Activ e confirmed 122948987 Problem Burning sensation of feet R20.8 Active confirmed 65344242 Problem Diabetic polyneuropathy associated with type 2 d iabetes mellitus E11.42 Active confirmed 040748541 Problem Insomnia, unspecified type G47.00 Active confirmed 624566944 Problem Diabetic autonomic neuropathy associated with type 2 diabetes mellitus E11.43 Active confirmed 464325498 Problem Uncontrolled type 2 diabetes mellitus with insulin therapy E11.65 Active confirmed 294682034044414 Problem Major depressive disorder, single episode, unspecified F32.9 Active confirmed 89992159 Problem Depression, unspecified depression type F32.9 Active confirmed 74096182 Problem History of anemia Z86.2 Active confirmed 27 8025380 Problem Gastroparesis K31.84 Active confirmed 249666 006 Problem Other ascites R18.8 Active confirmed 103786 000 Problem Nonalcoholic steatohepatitis (SÁNCHEZ) K75.81 Acti ve confirmed 786022692 ALLERGIES Allergen (clinical drug ingredient) Drug/Non Drug Allergy do cumented on EMR Reaction Allergy Type Onset Date Status hospital bracelets Rash Non Drug Allergy Active Adhesive Bandages Rash Drug Allergy Activ e ENCOUNTERS from 1966 to 2021-03-04 Encounter Location Date Provider Diagnosis [address] [phone] [place] [address] Feb, Kasey Rodríguezseantoniaan IMMUNIZATIONS Vaccine Route Administration [...] Language: Question Answer Notes Languages spoken: Bulgarian Mu-Ism: Question Answer Notes Mu-Ism 33 None Sexual Hx: Question Answer Notes [...] for 30 Active FreeStyle Ralph 14 Day [place] - 1 PER YEAR for 1 Active busPIRone HCl 10 MG 1 tab orally twice daily Active Aspirin 81 81 MG 1 tablet Orally Once a day for 30 Not-Taking Gabapentin 600 MG 1 tablet Orally three times daily for 30 day(s ) Jan, Not-Taking metFORMIN HCl 1000 MG 1 tablet with meals Orally Twice a day for 30 Active Pen [place] 31G X 6 MM icd: e11.65 for [...] for 30 Active FreeStyle Ralph 14 Day [place] - use as directed for co ntinuous [...] RESULTS No Results REASON FOR VISIT Physician orders MEDICAL (GENERAL) HISTORY Type Description Date Medical [...] Name:Radha Jha, 2020-09-2 0 11:00:00 AM, [id number], [place], [address], Provider Name:Kasey Annevasquez, 2020-06 01:45:00 PM, [address] [facility], , [place], [address], Insurance Providers Payer Name Payer Address Payer Phone Insured Name Patient Relati onship to Insured Coverage Start Date Coverage End Date [facility] [address] [facility] [address] RUSSELL HUGHES self
--- OUTSIDE RECORDS SUMMARY | 2021-04-15 12:47 | CCD ---
Author Author [facility] Organization [facility] Address Unknown Phone Unavailable Care Team Providers Care Neon Glass Blower Name Role Phone Kasey Keane Unavailable PROBLEMS Type Condition ICD9-CM Code [id number] Code Onset Dates Condition S tatus W/U Status Risk SNOMED Code Notes Problem Irregular menstrual bleeding N92.6 Active confirme d 77911759 Problem Osteoarthritis of right shoulder, unspecified os teoarthritis type M19.011 Active confirmed 51005049 Problem Morbid (severe) obesity due to excess calories E66 .01 Active confirmed 775925201 Problem Chronic fatigue R53.82 Active confirmed 5270 2003 Problem Suspected sleep apnea G47.30 Active confirmed 91838474 Problem Type 2 diabetes mellitus with other diabetic kid soren complication E11.29 Active confirmed 55170419 Problem Hyperlipidemia, unspecified hyperlipidemia E78.5 Active confirmed 37949713 Problem Chronic pain due to trauma G89.21 Active confirmed 601921198 Problem Iron deficiency anemia, unspecified iron deficiency D50.9 Active confirmed 75714819 Problem Symptomatic menopausal or female climacteric states N95.1 Active confirmed 11475623 Problem Gastroesophageal reflux disease without esophagitis K21.9 Active confirmed 838491926 Problem Anxiety F41.9 Active confirmed 93435916 Problem Essential hypertension I10 Active confirmed 47761885 Problem Pancytopenia D61.818 Active confirmed 575373 005 Problem Type 2 diabetes mellitus wit hout complication, without long-term current use of insulin E11.9 Active confirmed 113287064 Problem Iron deficiency anemia, unspecified iron deficiency an emia type D50.9 Active confirmed 04768929 Problem Globus sensation F45.8 Active confirmed 888 10941 Problem Other iron deficiency anemia D50.8 Active confirme d 00880681 Problem Dysphagia, unspecified type R13.10 Active confirmed 29663763 Problem Sleep apnea, unspecified type G47.30 Active confirm ed 81619061 Problem TSH (thyroid-stimulating hormone deficiency) E03.8 Active confirmed 19075651 Problem Type 2 diabetes mellitus without complications E11 .9 Active confirmed 058373728 Problem Other chronic pain G89.29 Active confirmed 8 6754284 Problem long term care administrator current use of insulin Z79.4 Active conf irmed 633849687 Problem Environmental allergies Z91.09 Active confirmed 832109209 Problem Vitamin D deficiency E55.9 Active confirmed 65830856 Problem Fatty liver K76.0 Active confirmed 39510241 7 Problem Type 2 diabetes mellitus wit hout complication, unspecified whether chcf insulin use E11.9 Active confirmed 402270351 Problem Other cirrhosis of liver K74.69 Active confirmed 58247816 Problem Excessive and frequent menstruation with regular cycle N92.0 Active confirmed 266290387 Problem Dysmenorrhea N94.6 Active confirmed 9037447 00 Problem 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 Active confirmed 26 1642792 Problem Thrombocytopenia D69.6 Active confirmed 415 550711 Problem Vaginal bleeding N93.9 Active confirmed 289 461374 Problem Cirrhosis of liver without ascites, unsp ecified hepatic cirrhosis type K74.60 Active confirmed 16285231 Problem History of hysterectomy Z90.710 Active confirmed 650461262 Problem Iron deficiency anemia, unspecified D50.9 Acti ve confirmed 93236128 Problem Major depressive disorder, recurrent, moderate F33 .1 Active confirmed 198852232 Problem Generalized anxiety disorder F41.1 Active confirme d 97752635 Problem Urinary tract infection, site not specified N39.0 Active confirmed 33158771 Problem Diabetic peripheral neuropathy associate d with type 2 diabetes mellitus E11.42 Active confirmed 0594691951801 Problem Gross hematuria R31.0 Active confirmed 1978 06013 Problem Obstructive sleep apnea G47.33 Active confirmed 64266483 Problem Other allergic rhinitis J30.89 Active confirmed 61225020 Problem Neuropathy G62.9 Active confirmed 111196490 Problem Proteinuria R80.9 Active confirmed 03749976 Problem penitentiary (current) use of insulin Z79.4 Activ e confirmed 884848240 Problem Burning sensation of feet R20.8 Active confirmed 66274633 Problem Diabetic polyneuropathy associated with type 2 d iabetes mellitus E11.42 Active confirmed 801178565 Problem Insomnia, unspecified type G47.00 Active confirmed 559185707 Problem Diabetic autonomic neuropathy associated with type 2 diabetes mellitus E11.43 Active confirmed 603489638 Problem Uncontrolled type 2 diabetes mellitus with insulin therapy E11.65 Active confirmed 616414434268107 Problem Major depressive disorder, single episode, unspecified F32.9 Active confirmed 72997397 Problem Depression, unspecified depression type F32.9 Active confirmed 20291607 Problem History of anemia Z86.2 Active confirmed 27 4113860 Problem Gastroparesis K31.84 Active confirmed 764204 006 Problem Other ascites R18.8 Active confirmed 715693 000 Problem Nonalcoholic steatohepatitis (SÁNCHEZ) K75.81 Acti ve confirmed 118915386 ALLERGIES Allergen (clinical drug ingredient) Drug/Non Drug Allergy do cumented on EMR Reaction Allergy Type Onset Date Status hospital bracelets Rash Non Drug Allergy Active Adhesive Bandages Rash Drug Allergy Activ e ENCOUNTERS from 1966 to 2021-03-18 Encounter Location Date Provider Diagnosis [address] [phone] [place] [address] Feb, Kasey Rodríguezsesian IMMUNIZATIONS Vaccine Route Administration [...] Language: Question Answer Notes Languages spoken: Bengali Adventist: Question Answer Notes Adventist 33 None [...] for 30 Active FreeStyle Ralph 14 Day [place] - 1 PER YEAR for 1 Active busPIRone HCl 10 MG 1 tab orally twice daily Active Aspirin 81 81 MG 1 tablet Orally Once a day for 30 Not-Taking Gabapentin 600 MG 1 tablet Orally three times daily for 30 day(s ) Jan, Not-Taking metFORMIN HCl 1000 MG 1 tablet with meals Orally Twice a day for 30 Active Pen [place] 31G X 6 MM icd: e11.65 for [...] for 30 Active FreeStyle Ralph 14 Day [place] - use as directed for co ntinuous [...] Information RESULTS No Results REASON FOR VISIT would like a call MEDICAL (GENERAL) HISTORY Type Description Date Medical [...] Name:Radha Jha, 2020-09-2 7 11:00:00 AM, [address] [facility] [phone], [place], [address], Provider Name:Kasey Keane, 2020-1 01:45:00 PM, [address] [facility], , [place], [address], Insurance Providers Payer Name Payer Address Payer Phone Insured Name Patient Relati onship to Insured Coverage Start Date Coverage End Date [facility]AN [facility] [address] [facility] [address] RUSSELL HUGHES self
--- OUTSIDE RECORDS SUMMARY | 2021-04-15 12:47 | CCD ---
Author Author [facility] Organization [facility] Address Unknown Phone Unavailable Care Team Providers Care Home Economics Extension Worker Name Role Phone Kasey Keane Unavailable PROBLEMS Type Condition ICD9-CM Code HYN95-RR Code Onset Dates Condition S tatus W/U Status Risk SNOMED Code Notes Problem Irregular menstrual bleeding N92.6 Active confirme d 37000947 Problem Osteoarthritis of right shoulder, unspecified os teoarthritis type M19.011 Active confirmed 74138545 Problem Morbid (severe) obesity due to excess calories E66 .01 Active confirmed 056696834 Problem Chronic fatigue R53.82 Active confirmed 5270 2003 Problem Suspected sleep apnea G47.30 Active confirmed 24610663 Problem Type 2 diabetes mellitus with other diabetic kid soren complication E11.29 Active confirmed 96668578 Problem Hyperlipidemia, unspecified hyperlipidemia E78.5 Active confirmed 02243347 Problem Chronic pain due to trauma G89.21 Active confirmed 827032084 Problem Iron deficiency anemia, unspecified iron deficiency D50.9 Active confirmed 26848418 Problem Symptomatic menopausal or female climacteric states N95.1 Active confirmed 97672118 Problem Gastroesophageal reflux disease without esophagitis K21.9 Active confirmed 164584512 Problem Anxiety F41.9 Active confirmed 73639194 Problem Essential hypertension I10 Active confirmed 69481225 Problem Pancytopenia D61.818 Active confirmed 215189 005 Problem Type 2 diabetes mellitus wit hout complication, without long-term current use of insulin E11.9 Active confirmed 332000553 Problem Iron deficiency anemia, unspecified iron deficiency an emia type D50.9 Active confirmed 96209249 Problem Globus sensation F45.8 Active confirmed 888 51416 Problem Other iron deficiency anemia D50.8 Active confirme d 04768261 Problem Dysphagia, unspecified type R13.10 Active confirmed 72014650 Problem Sleep apnea, unspecified type G47.30 Active confirm ed 28718499 Problem TSH (thyroid-stimulating hormone deficiency) E03.8 Active confirmed 23740601 Problem Type 2 diabetes mellitus without complications E11 .9 Active confirmed 476233787 Problem Other chronic pain G89.29 Active confirmed 8 9143504 Problem 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.4 Active conf irmed 233085664 Problem Environmental allergies Z91.09 Active confirmed 042358848 Problem Vitamin D deficiency E55.9 Active confirmed 36305285 Problem Fatty liver K76.0 Active confirmed 80295561 7 Problem Type 2 diabetes mellitus wit hout complication, unspecified whether jail insulin use E11.9 Active confirmed 734914593 Problem Other cirrhosis of liver K74.69 Active confirmed 62127414 Problem Excessive and frequent menstruation with regular cycle N92.0 Active confirmed 884628551 Problem Dysmenorrhea N94.6 Active confirmed 6864092 00 Problem 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 Active confirmed 26 9103966 Problem Thrombocytopenia D69.6 Active confirmed 415 023513 Problem Vaginal bleeding N93.9 Active confirmed 289 504786 Problem Cirrhosis of liver without ascites, unsp ecified hepatic cirrhosis type K74.60 Active confirmed 25172360 Problem History of hysterectomy Z90.710 Active confirmed 549140960 Problem Iron deficiency anemia, unspecified D50.9 Acti ve confirmed 83985138 Problem Major depressive disorder, recurrent, moderate F33 .1 Active confirmed 653627294 Problem Generalized anxiety disorder F41.1 Active confirme d 57838241 Problem Urinary tract infection, site not specified N39.0 Active confirmed 54147024 Problem Diabetic peripheral neuropathy associate d with type 2 diabetes mellitus E11.42 Active confirmed 2196554597025 Problem Gross hematuria R31.0 Active confirmed 1978 91382 Problem Obstructive sleep apnea G47.33 Active confirmed 27685421 Problem Other allergic rhinitis J30.89 Active confirmed 31651789 Problem Neuropathy G62.9 Active confirmed 129584739 Problem Proteinuria R80.9 Active confirmed 98458262 Problem FPC (current) use of insulin Z79.4 Activ e confirmed 810180005 Problem Burning sensation of feet R20.8 Active confirmed 04918353 Problem Diabetic polyneuropathy associated with type 2 d iabetes mellitus E11.42 Active confirmed 373902522 Problem Insomnia, unspecified type G47.00 Active confirmed 788649335 Problem Diabetic autonomic neuropathy associated with type 2 diabetes mellitus E11.43 Active confirmed 575735277 Problem Uncontrolled type 2 diabetes mellitus with insulin therapy E11.65 Active confirmed 387473223066942 Problem Major depressive disorder, single episode, unspecified F32.9 Active confirmed 56186202 Problem Depression, unspecified depression type F32.9 Active confirmed 79740636 Problem History of anemia Z86.2 Active confirmed 27 5025618 Problem Gastroparesis K31.84 Active confirmed 745619 006 Problem Other ascites R18.8 Active confirmed 983524 000 Problem Nonalcoholic steatohepatitis (SÁNCHEZ) K75.81 Acti ve confirmed 757563879 ALLERGIES Allergen (clinical drug ingredient) Drug/Non Drug Allergy do cumented on EMR Reaction Allergy Type Onset Date Status hospital bracelets Rash Non Drug Allergy Active Adhesive Bandages Rash Drug Allergy Activ e ENCOUNTERS from 1966 to 2021-03-11 Encounter Location Date Provider Diagnosis [address] [phone] [place] [address] 16 Feb, 2021 Kasey Rodríguezseantoniaan IMMUNIZATIONS Vaccine Route Administration Date [...] Education Language: Question Answer Notes Languages spoken: German Mosque: Question Answer Notes Mosque 33 None Sexual Hx: Question Answer Notes [...] for 30 Active FreeStyle Ralph 14 Day [place] - 1 PER YEAR for 1 Active busPIRone HCl 10 MG 1 tab orally twice daily Active Aspirin 81 81 MG 1 tablet Orally Once a day for 30 Not-Taking Gabapentin 600 MG 1 tablet Orally three times daily for 30 day(s ) Jan, Not-Taking metFORMIN HCl 1000 MG 1 tablet with meals Orally Twice a day for 30 Active Pen [place] 31G X 6 MM icd: e11.65 for [...] for 30 Active FreeStyle Ralph 14 Day [place] - use as directed for co ntinuous [...] Results REASON FOR VISIT would like a call, with patient MEDICAL (GENERAL) HISTORY Type Description Date Medical [...] 30 Next Appt Details Provider Name:Radha Jha, 2020--2 0 11:00:00 AM, [address] [facility], , [place], [address], Provider Name:Kasey Keane, 2020-06 008 01:45:00 PM, [address], , [place], [address], Insurance Providers Payer Name Payer Address Payer Phone Insured Name Patient Relati onship to Insured Coverage Start Date Coverage End Date [facility] [address] [facility] [address] RUSSELL HUGHES self
--- OUTSIDE RECORDS SUMMARY | 2021-04-15 12:48 | CCD ---
Author Author Located Within [facility] Organization Located Within [facility] Address Unknown Phone Unavailable Care Team Providers Care Geodesy Teacher Name Role Phone Kasey Keane Unavailable PROBLEMS Type Condition ICD9-CM Code [id number] Code Onset Dates Condition S tatus W/U Status Risk SNOMED Code Notes Problem Irregular menstrual bleeding N92.6 Active confirme d 89849306 Problem Osteoarthritis of right shoulder, unspecified os teoarthritis type M19.011 Active confirmed 14973898 Problem Morbid (severe) obesity due to excess calories E66 .01 Active confirmed 535104569 Problem Chronic fatigue R53.82 Active confirmed 5270 2003 Problem Suspected sleep apnea G47.30 Active confirmed 37141308 Problem Chronic pain due to trauma G89.21 Active confirmed 713774596 Problem Hyperlipidemia, unspecified hyperlipidemia E78.5 Active confirmed 42792323 Problem Obstructive sleep apnea G47.33 Active confirmed 79577313 Problem Iron deficiency anemia, unspecified iron deficiency D50.9 Active confirmed 35829805 Problem Symptomatic menopausal or female climacteric states N95.1 Active confirmed 55518087 Problem Gastroesophageal reflux disease without esophagitis K21.9 Active confirmed 061416456 Problem Anxiety F41.9 Active confirmed 96851678 Problem Essential hypertension I10 Active confirmed 05369915 Problem Pancytopenia D61.818 Active confirmed 203856 005 Problem Type 2 diabetes mellitus wit hout complication, without long-term current use of insulin E11.9 Active confirmed 954046577 Problem Iron deficiency anemia, unspecified iron deficiency an emia type D50.9 Active confirmed 17191183 Problem Globus sensation F45.8 Active confirmed 888 99111 Problem Other iron deficiency anemia D50.8 Active confirme d 17298703 Problem Dysphagia, unspecified type R13.10 Active confirmed 09706663 Problem Sleep apnea, unspecified type G47.30 Active confirm ed 89951239 Problem TSH (thyroid-stimulating hormone deficiency) E03.8 Active confirmed 52254039 Problem Type 2 diabetes mellitus without complications E11 .9 Active confirmed 091747960 Problem Other chronic pain G89.29 Active confirmed 8 2689684 Problem intermediate current use of insulin Z79.4 Active conf irmed 075515609 Problem Environmental allergies Z91.09 Active confirmed 899689106 Problem Vitamin D deficiency E55.9 Active confirmed 01215057 Problem Fatty liver K76.0 Active confirmed 85808053 7 Problem Type 2 diabetes mellitus wit hout complication, unspecified whether senior care insulin use E11.9 Active confirmed 977427172 Problem Other cirrhosis of liver K74.69 Active confirmed 32577915 Problem Excessive and frequent menstruation with regular cycle N92.0 Active confirmed 473978460 Problem Dysmenorrhea N94.6 Active confirmed 6662010 00 Problem 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 Active confirmed 26 4129125 Problem Thrombocytopenia D69.6 Active confirmed 415 138790 Problem Vaginal bleeding N93.9 Active confirmed 289 055601 Problem Cirrhosis of liver without ascites, unsp ecified hepatic cirrhosis type K74.60 Active confirmed 56409526 Problem History of hysterectomy Z90.710 Active confirmed 194370273 Problem Iron deficiency anemia, unspecified D50.9 Acti ve confirmed 15449102 Problem Major depressive disorder, recurrent, moderate F33 .1 Active confirmed 561347674 Problem Generalized anxiety disorder F41.1 Active confirme d 28797950 Problem Urinary tract infection, site not specified N39.0 Active confirmed 42228994 Problem Diabetic peripheral neuropathy associate d with type 2 diabetes mellitus E11.42 Active confirmed 3243338614994 Problem Gross hematuria R31.0 Active confirmed 1978 40783 Problem SÁNCHEZ (nonalcoholic steatohepatitis) K75.81 Acti ve confirmed 566566538 Problem Other allergic rhinitis J30.89 Active confirmed 07682186 Problem Neuropathy G62.9 Active confirmed 940689649 Problem Proteinuria R80.9 Active confirmed 81844847 Problem Type 2 diabetes mellitus with other diabetic kid soren complication E11.29 Active confirmed 51086248 Problem ore crusher (current) use of insulin Z79.4 Activ e confirmed 686317307 Problem Burning sensation of feet R20.8 Active confirmed 65237345 Problem Other ascites R18.8 Active confirmed 870476 000 Problem Diabetic autonomic neuropathy associated with type 2 diabetes mellitus E11.43 Active confirmed 512840671 Problem Nonalcoholic steatohepatitis (SÁNCHEZ) K75.81 Acti ve confirmed 247013733 Problem Major depressive disorder, single episode, unspecified F32.9 Active confirmed 76886222 Problem Depression, unspecified depression type F32.9 Active confirmed 55491316 Problem Uncontrolled type 2 diabetes mellitus with hyperglycemia E11.65 Active confirmed 798490278 Problem Diabetic polyneuropathy associated with type 2 d iabetes mellitus E11.42 Active confirmed 871124810 Problem History of anemia Z86.2 Active confirmed 27 6662826 Problem Gastroparesis K31.84 Active confirmed 395519 006 ALLERGIES Allergen (clinical drug ingredient) Drug/Non Drug Allergy do cumented on EMR Reaction Allergy Type Onset Date Status hospital bracelets Rash Non Drug Allergy Active Adhesive Bandages Rash Drug Allergy Activ e ENCOUNTERS from 1966 to 2021-02-05 Encounter Location Date Provider Diagnosis [place] [id number] [facility] [phone] [place] [address] Jan, Kasey Rodríguezsesian IMMUNIZATIONS Vaccine Route Administration Date [...] Education Language: Question Answer Notes Languages spoken: Somali Denominational: Question Answer Notes Denominational 33 None [...] Notes Start Da te End Date Status Admelog 100 UNIT/ML 20 units Subcutaneous before dinner Active Toujeo SoloStar Pens 450 U/1.5mL as directed subcutane ously 90 units in the morning, 90 units at night Apr, Not-T aking One touch ultra blue _ as directed intradermally 3 - 5 x/day for 20 Active Metoclopramide HCl 10 MG 1 tablet before meals Orally Twice a day for 30 Active Meclizine HCl 25 mg take two tablets by mouth every day orally bid Active Claritin-D 24 Hour 10-240 MG 1 tablet as needed Orally Once a da y for 30 days Active Basaglar KwikPen 100 UNIT/ML as directed Subcutaneous 70 units in the am and 90 units in the pm for 10 Active IBU 800 MG 1 tablet Orally Three times a day as needed for 30 Not-Taking Insulin Syringe insulin syringe icd:250.02 iddm subcut aneously twice daily for 30 Active Vitamin E 1000 UNIT 1 capsule Orally Once a day for 30 day(s) Nov, Active Lisinopril 10 MG 1 tablet Orally Once a day for 30 Not-Taking Cetirizine HCl 5 MG 1 tablet Orally Once a day for 30 Not-Taking Blood Pressure Kit - Dx l10 arm twice daily Jun, Active Gabapentin 400 MG 1 capsule Orally Three times a day for 30 day( s) Mar, Not-Taking FreeStyle Ralph 14 Day Sensor - CHANGE EVERY 14 DAYS for 14 Active Aspirin 81 81 MG 1 tablet Orally Once a day for 30 Not-Taking metFORMIN HCl 1000 MG 1 tablet with meals Orally Twice a day for 30 Active BuSpar 10 mg 1 tablet Orally Twice a day for 1 month 2014 Active FreeStyle Ralph 14 Day Judsonia - 1 PER YEAR for 1 Active hydrOXYzine HCl 50 MG 1 tablet Orally 1 for 1 dose(s) 2017 Active traMADol HCl 50 MG 1 tablet as needed Orally BIDPRN MDD: 2 for 5 days Nov, Active Spironolactone 50 MG 1 tablet Orally twice a day for 60 day(s) Dec, Active Spironolactone 50 MG 1 tablet Orally twice a day duplicate Nov, 2 021 Not-Taking Wheelchair - as directed electric wheelch air for chronic deconditioning and E66.01 and R53.82. 13 Dec, 2020 Active Lasix 40 MG 1 tablet Orally twice a day Dec, Active Ferrous Sulfate 325 (65 Fe) MG 1 tablet Orally Once a day for 30 Active Mucinex 600 MG 1 tablet as needed Orally Daily for 30 day(s) May, Not-Taking FreeStyle Ralph 14 Day Judsonia - use as directed for co ntinuous glucose monitoirng continuous Daily for 28 day(s) Mar, Active busPIRone HCl 10 MG 1 tab orally twice daily Active Gabapentin 600 MG 1 tablet Orally three times daily for 30 day(s ) Jan, Not-Taking Aspir-81 81 MG 1 tablet Orally Once a day duplicate Not-Taking Omeprazole 40 MG TAKE ONE CAPSULE BY MOUTH TWICE A DAY for 30 Active Deblitane 0.35 MG 1 tablet Orally Once a day Not-Taking Trulicity 0.75 MG/0.5ML 0.5 ml Subcutaneous weekly for 15 Not-Taking hydroCHLOROthiazide 12.5 MG 1 tablet Orally Once a day for 30 Not-Taking DULoxetine HCl 20 MG 1 capsule Orally Once a day for 7 day(s) October, Not-Taking Mobic 7.5 MG 1 tablet Orally twice daily as needed Apr, Not-Taking HumaLOG 100 UNIT/ML 20 units Subcutaneous before dinner for 30 day(s) please dispense amount necessary for 20 units nightly, unsure what to put in the May, Not-Taking traMADol HCl 50 MG 2 tablets as needed Orally Once a day for 7 d ays duplicate Nov, Not-Taking Zantac 150 MG 1 tab Orally Twice a day for 30 Not-Taking Lisinopril 10 10 mg 1 tablet orally Once a day for 30 duplicate Not-Taking Steglatro 5 MG 1 tablet Orally Once a day for 30 Active DULoxetine HCl 60 MG 1 capsule Orally Once a day for 30 day(s) Apr, Active Pen Towson 31G X 6 MM icd: e11.65 for use with ins ulin pens - DX Z79.4 four times daily for 30 day(s) Apr, Active Atorvastatin Calcium 80 MG 1 tablet Orally Once a day for 30 Active Flonase 50 MCG/ACT 1 spray in each nostril Nasally Once a day for 31 Not-Taking FreeStyle Ralph 14 Day Sensor - use as directed for co ntinous glucose monitoring continuous for 28 day(s) Mar, Active Actos 30 MG 1 tablet Orally Once a day for 30 Active Nortriptyline HCl 25 MG 1 capsule Orally once daily at bedtime for 30 Active Docusate Sodium 100 MG TAKE ONE CAPSULE BY MOUTH EV CIPRIANO DAY NEEDED Orally Once a day for 30 Active SUMAtriptan Succinate 25 MG 1 tablet as needed one erika e, repeat if no relief in 2 hours Orally Once a day Jul, Not-Ta harvinder tiZANidine HCl 4 MG TAKE ONE TABLET BY MOUTH AT BEDTIME NEEDED FOR SPASMS Oral for 30 Active Lasix 20 MG 2 tablet Orally Once a day Active PROCEDURES No Information RESULTS No Results REASON FOR VISIT orders/ pain level MEDICAL (GENERAL) HISTORY Type Description Date Medical [...] Information ASSESSMENTS No Information PLAN OF TREATMENT Next Appt Details Provider Name:Kasey Keane, 02-07 03:45:00 PM, [address] [place] [address], , [place], [address], Provider Name:Radha Jha, 2021-02- 0 11:00:00 AM, [address] [place] [address], , [place], [address], Insurance Providers Payer Name Payer Address Payer Phone Insured Name Patient Relati onship to Insured Coverage Start Date Coverage End Date [facility] [place] [address] [facility] [phone] RUSSELL HUGHES self
--- OUTSIDE RECORDS SUMMARY | 2021-04-15 12:48 | CCD | Continuity of Care Document ---
Author Author Felicita LANDAVERDE MD Organization Unknown Address [address] [place] [address] Phone [phone] Care Team Providers Care Telegraph Office Manager Name Role Phone Kasey Keane D.O. AUTM [phone] Problems Active Problems Provider Date Disturbance of consciousness CHE Gonsalez Onset: 08/23 Difficulty breathing CHE Gonsalez Onset: 09/05/2017 History of polyp of colon Jack Landaverde MD Onset: 018 Obstructive sleep apnea syndrome CHE Gonsalez Onset: 10/22/2017 Social History Type Date Description Comments Sex Female ETOH Use Denies alcohol use Tobacco Use Start: Unknown Denies Smoking Recreational Drug Use Denies Drug Use Smoking Status Reviewed: 02/13/19 Denies Smoking Exercise Type/Frequency Does not exercise Allergies, Adverse Reactions, Alerts Active Allergies Reaction Severity Comments Date NKDA 07/27/2016 Adhesives 07/27/2016 Medications Active Medications SIG Qnty Indications Ordering Provide r Date Furosemide 40mg Tablets 1 by mouth twice a day 60tabs Jack Landaverde MD 01/24/2021 Spironolactone 50mg Tablets Take 2 tabs (=100 mg) in am, Take 1 tab (=50 mg) in PM po 90tabs D martin Landaverde MD 01/24/2021 CPAP 4-20cm marras CHE Gonsalez 11/[address] 1 capsule by mouth twice daily. 60caps Jack Landaverde MD 07/27/2016 Buspirone HCL 10mg Tablets bi d Unknown Docusate Sodium 100mg Capsules 1 qd Unknown Pioglitazone HCL 30mg Tablets 1 by mouth every day Unknown Tizanidine HCL 4mg Capsules Unknown Ceciliaaglgilbert Kwikpen 100 Unit/ML Solution Pen-Inject am/pm Unknown Nortriptyline HCL 25mg Capsules hs Unknown Aspirin [address] 1 by mouth every day Unknown Ferrous Sulfate 325(65Fe) mg Table ts every day Unknown Tramadol HCL 50mg Tablets hs Unknown History Medications Furosemide 20mg Tablets take 1 tablet by mouth bid 90tabs Krystian Callahan M.D. 2020 - 01/24/2021 Sutab [id number] Tablets as directed- see office colon prep instructions 24tabs D50.9 Jack Landaverde MD 10/14/2020 - 11/24/2020 Milk Of Magnesia 7.75% Suspension take 45 milliliters by mouth about 1-2 days before colonoscopy prep 360ml D50.9 Jack Landaverde MD 10/14/2020 - 10/24/2020 Immunizations Description No Information Available Vital Signs Date Vital Result Comment 01/24/2021 8:52am BP Systolic 125 mmHg BP Diastolic 65 mmHg Height 66 inches 5'6" Weight 221.00 lb BMI (Body Mass Index) 35.7 kg/m2 [place] Body Weight 130 lb Weight 100.246 kg BSA (Body Surface Area) 2.09 m2 10/14/2020 2:06pm BP Systolic 167 mmHg BP Diastolic 88 mmHg Height 66 inches 5'6" Weight 215.00 lb BMI (Body Mass Index) 34.7 kg/m2 Bullock Body Weight 130 lb Weight 97.524 kg BSA (Body Surface Area) 2.06 m2 Results Test Acquired Date Facility Test Result H/L Range Note Prothrombin Time/Inr 01/12/2021 [facility] Main Lab [address] [place] [address] [phone] Prothrombin Time 14.2 seconds High 12.5-14.3 Inr 1.08 Normal 1 Laboratory test finding 01/12/2021 [facility] Main Lab [address] [place] [address] [phone] Platelet Count, Automated 111 10 Low 150-45 0 2 Laboratory test finding 12/20/2020 [facility] Main Lab [address] [place] [address] [phone] Bedside Glucose 268 mg/dL High 70-105 Cell Count Ascites Fluid 12/15/2020 [facility] Main Lab [address] [place], [place] [id number] [phone] Source, Body Fluid ASCITES Normal Ascites FL Color PALE YELLOW Normal Colorless Appearance, Body Fluid HAZY Normal Clear WBC Body Fluid 141 /uL High 0-10 RBC Body Fluid < 2 10 Normal <2 BF Mononuclear Cell % 92.9 % High 0-0 BF Polymorphonuclear Cell % 7.1 % High 0-0 TP Body Fluid 12/15/2020 [facility] Main Lab [address] [place] [address] [phone] Total Protein, Body Fluid 1.0 g/dL Normal Not Es tablished Source, Body Fluid Tot Protein ASCITES Normal Albumin Body Fluid 12/15/2020 [facility] Main Lab [address] [place] [address] [phone] Albumin, Body Fluid 0.3 g/dL Normal Not [...] Time: 1030 Procedures Date Code Description Status 01/24/2021 29709 Office/Outpatient Established Mo d MDM 30-39 Min Completed 12/20/2020 90859 Colonoscopy Flexible Proximal To Splenic Flexure Diagnostic W/Or Completed 12/20/2020 20611 Endoscopy Upper GI W/Band Ligati on Of Varices Completed 10/14/2020 30684 Office/Outpatient Established Mo d MDM 30-39 Min Completed Medical Devices Description No Information Available Encounters Type Date Location Provider Dx Diagnosis Office Visit 01/24/2021 8:50a [facility] Jack Landaverde MD K75.81 Nonalcoholic steatohepatitis (Conn[place]) K74.69 Other cirrhosis of liver I85.10 Secondary esophageal varices without bleeding K76.6 Portal hypertension D64.9 Anemia, unspecified D56.9 Thalassemia, unspecified Office Visit 10/14/2020 1:45p [facility] G[facility]enter[facility] Jack Landaverde MD D50.9 Iron deficiency anemia, unsp ecified D64.9 Anemia, unspecified D56.9 Thalassemia, unspecified K75.81 Nonalcoholic steatohepatitis ([place]) K74.69 Other cirrhosis of liver K31.84 Gastroparesis Assessments Date Code Description Provider 01/24/2021 K75.81 Nonalcoholic steatohepatitis (Na sh) Jack [...] Gastroparesis Jack Landaverde MD Plan of Treatment 01/24/2021 - Jack Landaverde MD* K75.81 Nonalcoholic steatohepatitis ([place]) * K74.69 Other cirrhosis of liver * I85.10 Secondary esophageal varices without bleeding * K76.6 Portal hypertension * D64.9 Anemia, unspecified * D56.9 Thalassemia, unspecified * * New Orders:* EGD/Upper Endoscopy, Ordered: 01/24/21 * Colonoscopy, Ordered: 01/24/21 * Comments:* Pt with decompensated CONNORS/Cirrhosis with ascites and esophageal varices. She has anemia as well (Iron deficit/Thalassemia trait).She presents for further management.All her previous colon preps were poor prep. we have never been able to acomplish a good colon prep. * Recommendations:* 1) Admit to hospital for inpatirent colon prep/colonoscopy 2) We need a list of her medications, as the current list is obsolete. she did not bring her meds to review. She is certainly on many meds. A review per PCP for necessity is important. Generally we need to increase her diuretic regimen. Adjustment will depend on actual medication list. 3) Na free diet, 4) Stop narcotics Functional Status Description No Information Available Mental Status Description No Information Available Referrals Refer to Reason for Referral Status Appt Date Jack Landaverde M.D. [id number] [id number] Scheduled 12/20/2020 [facility], Gastroenterology [address] [place] [address], [address] [address] [phone] Jack Landaverde M.D. UPPER ENDO - GASTROPARESIS Scheduled 10/14/2020 [facility], Gastroenterology [address] [place] [address], [address] [address] [phone]
--- OUTSIDE RECORDS SUMMARY | 2021-04-15 12:48 | CCD | Continuity of Care Document ---
Author Author Felicita LANDAVERDE MD Organization Unknown Address [address] [place] [address] Phone [phone] Care Team Providers Care Flight Information Expediter Name Role Phone Kasey Keane D.O. AUTM [phone] Problems Active Problems Provider Date Disturbance [...] day Unknown Tizanidine HCL 4mg Capsules Unknown Basaglgilbert Kwikpen 100 Unit/ML Solution Pen-Inject am/pm Unknown Nortriptyline HCL 25mg Capsules hs Unknown Ferrous Sulfate 325(65Fe) mg Table ts every day Unknown Tramadol HCL 50mg Tablets hs Unknown History Medications Furosemide 20mg Tablets take 1 tablet by mouth bid 90tabs Krystian Callahan M.D. 2020 - 01/24/2021 Sutab [id number] Tablets as directed- see office colon prep [...] lb BMI (Body Mass Index) 35.7 kg/m2 [place] Body Weight 130 lb Weight 100.246 kg BSA (Body Surface Area) 2.09 m2 10/14/2020 2:06pm BP Systolic 167 mmHg BP Diastolic 88 mmHg Height 66 inches 5'6" Weight 215.00 lb BMI (Body Mass Index) 34.7 kg/m2 [place] Body Weight 130 lb Weight 97.524 kg BSA (Body Surface Area) 2.06 m2 Results Test Acquired Date Facility Test Result H/L Range Note Prothrombin Time/Inr [facility] [address] [place] [address] [phone] Prothrombin Time 14.2 seconds High 12.5-14.3 Inr 1.08 Normal 1 Laboratory test finding 01/12/2021 [facility] Main Lab [address] [place], [place] [address] [phone] Platelet Count, Automated 111 10 Low 150-45 0 2 Laboratory test finding 12/20/2020 [facility] Main Lab [address] [place] [address] [phone] Bedside Glucose 268 mg/dL High 70-105 Cell Count Ascites Fluid 12/15/2020 [facility] Main Lab [address] [place], [place] [address] [phone] Source, Body Fluid ASCITES Normal Ascites [place] Color PALE YELLOW Normal Colorless Appearance, Body Fluid HAZY Normal Clear WBC Body Fluid 141 /uL High 0-10 RBC Body Fluid < 2 10 Normal <2 BF Mononuclear Cell % 92.9 % High 0-0 BF Polymorphonuclear Cell % 7.1 % High 0-0 TP Body Fluid 12/15/2020 [facility] Main Lab [address] [place] [address] [phone] Total Protein, Body Fluid 1.0 g/dL Normal Not Es tablished Source, Body Fluid Tot Protein ASCITES Normal Albumin Body Fluid 12/15/2020 [facility] Main Lab [address] [place] [address] [phone] Albumin, Body Fluid 0.3 g/dL Normal Not [...] 1030 Procedures Date Code Description Status 01/24/2021 02215 Office/Outpatient Established Mo d MDM 30-39 Min Completed 12/20/2020 96760 Colonoscopy Flexible Proximal To Splenic Flexure Diagnostic W/Or Completed 12/20/2020 32136 Endoscopy Upper GI W/Band Ligati on Of Varices Completed 10/14/2020 67571 Office/Outpatient Established Mo d MDM 30-39 Min Completed Medical Devices Description No Information Available Encounters Type Date Location Provider Dx Diagnosis Office Visit 01/24/2021 8:50a [facility] Gastroenterology Pra [facility]ice Jack Landaverde MD K75.81 Nonalcoholic steatohepatitis ([place]) K74.69 Other cirrhosis of liver I85.10 Secondary esophageal varices without bleeding K76.6 Portal hypertension D64.9 Anemia, unspecified D56.9 Thalassemia, unspecified Office Visit 10/14/2020 1:45p [facility] Gastroenterology [facility] Jack Landaverde MD D50.9 Iron deficiency anemia, [...] Referral Status Appt Date Jack Landaverde M.D. [id number] [phone] [id number] [phone] Scheduled 12/20/2020 [facility], Gastroenterology [address] [place] [address], [address] [address] [phone] Jack Landaverde M.D. UPPER ENDO - GASTROPARESIS Scheduled 10/14/2020 [facility], Gastroenterology [address] [place] [address], [address] [address] [phone]
--- OUTSIDE RECORDS SUMMARY | 2021-04-15 12:48 | CCD ---
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 Role Phone Kasey Keane Unavailable PROBLEMS Type Condition ICD9-CM Code [id number] Code Onset Dates Condition S tatus W/U Status Risk SNOMED Code Notes Problem Irregular menstrual bleeding N92.6 Active confirme d 00240333 Problem Osteoarthritis of right shoulder, unspecified os teoarthritis type M19.011 Active confirmed 24125136 Problem Morbid (severe) obesity due to excess calories E66 .01 Active confirmed 030992555 Problem Chronic fatigue R53.82 Active confirmed 5270 2003 Problem Suspected sleep apnea G47.30 Active confirmed 95619472 Problem Chronic pain due to trauma G89.21 Active confirmed 085730084 Problem Hyperlipidemia, unspecified hyperlipidemia E78.5 Active confirmed 54488949 Problem Obstructive sleep apnea G47.33 Active confirmed 85156439 Problem Iron deficiency anemia, unspecified iron deficiency D50.9 Active confirmed 71822169 Problem Symptomatic menopausal or female climacteric states N95.1 Active confirmed 46015800 Problem Gastroesophageal reflux disease without esophagitis K21.9 Active confirmed 378942501 Problem Anxiety F41.9 Active confirmed 63048088 Problem Essential hypertension I10 Active confirmed 07735225 Problem Pancytopenia D61.818 Active confirmed 935918 005 Problem Type 2 diabetes mellitus wit hout complication, without long-term current use of insulin E11.9 Active confirmed 453231164 Problem Iron deficiency anemia, unspecified iron deficiency an emia type D50.9 Active confirmed 52423499 Problem Globus sensation F45.8 Active confirmed 888 06893 Problem Other iron deficiency anemia D50.8 Active confirme d 11778139 Problem Dysphagia, unspecified type R13.10 Active confirmed 37903315 Problem Sleep apnea, unspecified type G47.30 Active confirm ed 69066466 Problem TSH (thyroid-stimulating hormone deficiency) E03.8 Active confirmed 08456481 Problem Type 2 diabetes mellitus without complications E11 .9 Active confirmed 476335845 Problem Other chronic pain G89.29 Active confirmed 8 9285107 Problem skilled nursing current use of insulin Z79.4 Active conf irmed 224831656 Problem Environmental allergies Z91.09 Active confirmed 250322299 Problem Vitamin D deficiency E55.9 Active confirmed 49934825 Problem Fatty liver K76.0 Active confirmed 00449549 7 Problem Type 2 diabetes mellitus wit hout complication, unspecified whether shelter insulin use E11.9 Active confirmed 199969381 Problem Other cirrhosis of liver K74.69 Active confirmed 29419750 Problem Excessive and frequent menstruation with regular cycle N92.0 Active confirmed 633807685 Problem Dysmenorrhea N94.6 Active confirmed 4906481 00 Problem 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 Active confirmed 26 1142346 Problem Thrombocytopenia D69.6 Active confirmed 415 032567 Problem Vaginal bleeding N93.9 Active confirmed 289 041068 Problem Cirrhosis of liver without ascites, unsp ecified hepatic cirrhosis type K74.60 Active confirmed 55369721 Problem History of hysterectomy Z90.710 Active confirmed 126494952 Problem Iron deficiency anemia, unspecified D50.9 Acti ve confirmed 64148561 Problem Major depressive disorder, recurrent, moderate F33 .1 Active confirmed 617336080 Problem Generalized anxiety disorder F41.1 Active confirme d 58775356 Problem Urinary tract infection, site not specified N39.0 Active confirmed 75602103 Problem Diabetic peripheral neuropathy associate d with type 2 diabetes mellitus E11.42 Active confirmed 0809857259419 Problem Gross hematuria R31.0 Active confirmed 1978 66042 Problem SÁNCHEZ (nonalcoholic steatohepatitis) K75.81 Acti ve confirmed 083088327 Problem Other allergic rhinitis J30.89 Active confirmed 46850102 Problem Neuropathy G62.9 Active confirmed 073230948 Problem Proteinuria R80.9 Active confirmed 39672007 Problem Type 2 diabetes mellitus with other diabetic kid soren complication E11.29 Active confirmed 35201491 Problem lobsterman (current) use of insulin Z79.4 Activ e confirmed 390990833 Problem Burning sensation of feet R20.8 Active confirmed 57176856 Problem Other ascites R18.8 Active confirmed 583064 000 Problem Diabetic autonomic neuropathy associated with type 2 diabetes mellitus E11.43 Active confirmed 816304963 Problem Nonalcoholic steatohepatitis (SÁNCHEZ) K75.81 Acti ve confirmed 917373036 Problem Major depressive disorder, single episode, unspecified F32.9 Active confirmed 76786530 Problem Depression, unspecified depression type F32.9 Active confirmed 24184719 Problem Uncontrolled type 2 diabetes mellitus with hyperglycemia E11.65 Active confirmed 286767696 Problem Diabetic polyneuropathy associated with type 2 d iabetes mellitus E11.42 Active confirmed 607111914 Problem History of anemia Z86.2 Active confirmed 27 5946466 Problem Gastroparesis K31.84 Active confirmed 051454 006 ALLERGIES Allergen (clinical drug ingredient) Drug/Non Drug Allergy do cumented on EMR Reaction Allergy Type Onset Date Status hospital bracelets Rash Non Drug Allergy Active Adhesive Bandages Rash Drug Allergy Activ e ENCOUNTERS from 1966 to 2021-02-04 Encounter Location Date Provider Diagnosis [place] [address] [facility] [place] [phone] [place] [address] Jan, Kasey Rodríguezsesian IMMUNIZATIONS Vaccine Route Administration [...] Education Language: Question Answer Notes Languages spoken: Micronesian Spiritism: Question Answer Notes Spiritism 33 None Sexual Hx: Question Answer Notes [...] month 2014 Active FreeStyle Ralph 14 Day [place] - 1 PER YEAR for 1 Active [...] day(s) May, Not-Taking FreeStyle Ralph 14 Day [place] - use as directed for co ntinuous [...] day for 30 day(s) Apr, Active Pen [place] 31G X 6 MM icd: e11.65 for [...] Information RESULTS No Results REASON FOR VISIT edema MEDICAL (GENERAL) HISTORY Type Description Date Medical [...] Details Provider Name:Kasey Keane, 02-07 03:45:00 PM, [address] [place] [address], , [place], [address], Provider Name:Radha Jha, 2021-02- 0 11:00:00 AM, [address] [facility] [place], , [place], [address], Insurance Providers Payer Name Payer Address Payer Phone Insured Name Patient Relati onship to Insured Coverage Start Date Coverage End Date [facility] [address] [facility] [phone] RUSSELL HUGHES self
--- OUTSIDE RECORDS SUMMARY | 2021-04-15 12:48 | CCD ---
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 Role Phone Kasey Keane Unavailable PROBLEMS Type Condition ICD9-CM Code OPL82-EY Code Onset Dates Condition S tatus W/U Status Risk SNOMED Code Notes Problem Irregular menstrual bleeding N92.6 Active confirme d 04074435 Problem Osteoarthritis of right shoulder, unspecified os teoarthritis type M19.011 Active confirmed 61742338 Problem Morbid (severe) obesity due to excess calories E66 .01 Active confirmed 967718568 Problem Chronic fatigue R53.82 Active confirmed 5270 2003 Problem Suspected sleep apnea G47.30 Active confirmed 99632126 Problem Chronic pain due to trauma G89.21 Active confirmed 345241156 Problem Hyperlipidemia, unspecified hyperlipidemia E78.5 Active confirmed 20678850 Problem Obstructive sleep apnea G47.33 Active confirmed 04803125 Problem Iron deficiency anemia, unspecified iron deficiency D50.9 Active confirmed 47971130 Problem Symptomatic menopausal or female climacteric states N95.1 Active confirmed 26704431 Problem Gastroesophageal reflux disease without esophagitis K21.9 Active confirmed 800971765 Problem Anxiety F41.9 Active confirmed 75864163 Problem Essential hypertension I10 Active confirmed 38494828 Problem Pancytopenia D61.818 Active confirmed 780606 005 Problem Type 2 diabetes mellitus wit hout complication, without long-term current use of insulin E11.9 Active confirmed 025668123 Problem Iron deficiency anemia, unspecified iron deficiency an emia type D50.9 Active confirmed 68434144 Problem Globus sensation F45.8 Active confirmed 888 27999 Problem Other iron deficiency anemia D50.8 Active confirme d 12062532 Problem Dysphagia, unspecified type R13.10 Active confirmed 83084105 Problem Sleep apnea, unspecified type G47.30 Active confirm ed 21481071 Problem TSH (thyroid-stimulating hormone deficiency) E03.8 Active confirmed 20439023 Problem Type 2 diabetes mellitus without complications E11 .9 Active confirmed 275848478 Problem Other chronic pain G89.29 Active confirmed 8 4400612 Problem FDC current use of insulin Z79.4 Active conf irmed 105700042 Problem Environmental allergies Z91.09 Active confirmed 468004196 Problem Vitamin D deficiency E55.9 Active confirmed 57029923 Problem Fatty liver K76.0 Active confirmed 09196971 7 Problem Type 2 diabetes mellitus wit hout complication, unspecified whether fci insulin use E11.9 Active confirmed 300118878 Problem Other cirrhosis of liver K74.69 Active confirmed 46102696 Problem Excessive and frequent menstruation with regular cycle N92.0 Active confirmed 150893930 Problem Dysmenorrhea N94.6 Active confirmed 6082941 00 Problem 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 Active confirmed 26 7726897 Problem Thrombocytopenia D69.6 Active confirmed 415 790485 Problem Vaginal bleeding N93.9 Active confirmed 289 570792 Problem Cirrhosis of liver without ascites, unsp ecified hepatic cirrhosis type K74.60 Active confirmed 39167740 Problem History of hysterectomy Z90.710 Active confirmed 976093699 Problem Iron deficiency anemia, unspecified D50.9 Acti ve confirmed 28969104 Problem Major depressive disorder, recurrent, moderate F33 .1 Active confirmed 793107748 Problem Generalized anxiety disorder F41.1 Active confirme d 99279011 Problem Urinary tract infection, site not specified N39.0 Active confirmed 14827954 Problem Diabetic peripheral neuropathy associate d with type 2 diabetes mellitus E11.42 Active confirmed 1005776722269 Problem Gross hematuria R31.0 Active confirmed 1978 78273 Problem SÁNCHEZ (nonalcoholic steatohepatitis) K75.81 Acti ve confirmed 036657171 Problem Other allergic rhinitis J30.89 Active confirmed 26287515 Problem Neuropathy G62.9 Active confirmed 730284346 Problem Proteinuria R80.9 Active confirmed 49894952 Problem Type 2 diabetes mellitus with other diabetic kid soren complication E11.29 Active confirmed 30144763 Problem FDC (current) use of insulin Z79.4 Activ e confirmed 847917467 Problem Burning sensation of feet R20.8 Active confirmed 68529244 Problem Other ascites R18.8 Active confirmed 212176 000 Problem Diabetic autonomic neuropathy associated with type 2 diabetes mellitus E11.43 Active confirmed 940801142 Problem Nonalcoholic steatohepatitis (SÁNCHEZ) K75.81 Acti ve confirmed 509764298 Problem Major depressive disorder, single episode, unspecified F32.9 Active confirmed 12216072 Problem Depression, unspecified depression type F32.9 Active confirmed 95180235 Problem Uncontrolled type 2 diabetes mellitus with hyperglycemia E11.65 Active confirmed 949067632 Problem Diabetic polyneuropathy associated with type 2 d iabetes mellitus E11.42 Active confirmed 025615847 Problem History of anemia Z86.2 Active confirmed 27 0613015 Problem Gastroparesis K31.84 Active confirmed 067177 006 ALLERGIES Allergen (clinical drug ingredient) Drug/Non Drug Allergy do cumented on EMR Reaction Allergy Type Onset Date Status hospital bracelets Rash Non Drug Allergy Active Adhesive Bandages Rash Drug Allergy Activ e ENCOUNTERS from 1966 to 2021-02-11 Encounter Location Date Provider Diagnosis [place] [id number] [facility] [phone] [place] [address] Jan, Kasey Movsesian Generalized abdominal pain R 10.84 IMMUNIZATIONS Vaccine Route Administration Date Status Influenza [...] Education Language: Question Answer Notes Languages spoken: Korean Quaker: Question Answer Notes Quaker 33 None Sexual Hx: Question Answer Notes [...] twice a day duplicate Nov, 021 Not-Taking Aspirin 81 81 MG 1 [...] a day Active FreeStyle Ralph 14 Day [place] - 1 PER YEAR for 1 Active [...] 1 tab orally twice daily Active Pen [place] 31G X 6 MM icd: e11.65 for [...] for 30 Active FreeStyle Ralph 14 Day [place] - use as directed for co ntinuous glucose monitoirng continuous Daily for 28 day(s) Mar, Active metFORMIN HCl 1000 MG 1 tablet with meals Orally Twice a day for 30 Active Wheelchair - as directed electric wheelch air for chronic deconditioning and E66.01 and R53.82. Dec, Active hydrOXYzine HCl 50 MG 1 tablet [...] hours Orally Once a day Jul, Not-Ta king Rashad Donohuear Pens 450 U/1.5mL as directed subcutane ously [...] a day Not-Taking PROCEDURES No Information RESULTS No Results REASON FOR VISIT sore from MEDICAL (GENERAL) HISTORY Type Description Date Medical [...] Jan, Generalized abdominal pain (ICD-10 - R10.84) PLAN OF TREATMENT Medication Medication Name Sig Start Date Stop Date Lancets - as directed for 30 days Jan, Ferrous Sulfate 325 (65 Fe) MG 1 tablet Orally Once a day for 30 days traMADol HCl 50 MG 1 tablet as needed Orally BIDPRN MDD: 2 for 28 days Jan, Next Appt Details Provider Name:Kasey Keane, 02-24 01:45:00 PM, [address] [place] [address], , [place], [address], Provider Name:Radha Jha, 2021-02-24 0 11:00:00 AM, [address] [place] [address], , [place], [address], Insurance Providers Payer Name Payer Address Payer Phone Insured Name Patient Relati onship to Insured Coverage Start Date Coverage End Date [facility] [address] [facility] [phone] RUSSELL HUGHES self
--- OUTSIDE RECORDS SUMMARY | 2021-04-15 12:50 | CCD ---
Author Author [facility] Organization [facility] Address Unknown Phone Unavailable Care Team Providers Care Associate Buyer Name Role Phone Paniagua, Denice RANCH HELPER Unavailable Unavailable Paniagua, Denice RANCH HELPER Unavailable Unavailable Paniagua, Denice RANCH HELPER Unavailable Unavailable Paniagua, Denice RANCH HELPER Unavailable Unavailable Paniagua, Denice RANCH HELPER Unavailable Unavailable Paniagua, Denice RANCH HELPER Unavailable Unavailable Paniagua, Denice RANCH HELPER Unavailable Unavailable Paniagua, Denice RANCH HELPER Unavailable Unavailable Paniagua, Denice RANCH HELPER Unavailable Unavailable Paniagua, Denice RANCH HELPER Unavailable Unavailable Paniagua, Denice RANCH HELPER Unavailable Unavailable Paniagua, Denice RANCH HELPER Unavailable Unavailable Paniagua, Denice RANCH HELPER Unavailable Unavailable REINDL, GHISLAINE COSTELLO Unavailable Unavailable REINDL, GHISLAINE COSTELLO Unavailable Unavailable REINDL, GHISLAINE COSTELLO Unavailable Unavailable REINDL, GHISLAINE COSTELLO Unavailable Unavailable REINDL, GHISLAINE COSTELLO Unavailable Unavailable REINDL, GHISLAINE COSTELLO Unavailable Unavailable REINDL, GHISLAINE COSTELLO Unavailable Unavailable REINDL, GHISLAINE COSTELLO Unavailable Unavailable REINDL, GHISLAINE COSTELLO Unavailable Unavailable REINDL, GHISLAINE COSTELLO Unavailable Unavailable REINDL, GHISLAINE COSTELLO Unavailable Unavailable REINDL, GHISLAINE COSTELLO Unavailable Unavailable REINDL, GHISLAINE COSTELLO Unavailable Unavailable REINDL, GHISLAINE COSTELLO Unavailable Unavailable REINDL, GHISLAINE COSTELLO Unavailable Unavailable REINDL, GHISLAINE COSTELLO Unavailable Unavailable REINDL, GHISLAINE COSTELLO Unavailable Unavailable REINDL, GHISLAINE COSTELLO Unavailable Unavailable REINDL, GHISLAINE COSTELLO Unavailable Unavailable REINDL, GHISLAINE COSTELLO Unavailable Unavailable REINDL, GHISLAINE COSTELLO Unavailable Unavailable REINDL, GHISLAINE COSTELLO Unavailable Unavailable REINDL, GHISLAINE COSTELLO Unavailable Unavailable REINDL, GHISLAINE COSTELLO Unavailable Unavailable REINDL, GHISLAINE COSTELLO Unavailable Unavailable REINDL, GHISLAINE COSTELLO Unavailable Unavailable REINDL, GHISLAINE COSTELLO Unavailable Unavailable REINDL, GHISLAINE COSTELLO Unavailable Unavailable REINDL, GHISLAINE COSTELLO Unavailable Unavailable REINDL, GHISLAINE COSTELLO Unavailable Unavailable REINDL, GHISLAINE COSTELLO Unavailable Unavailable REINDL, GHISLAINE COSTELLO Unavailable Unavailable REINDL, GHISLAINE COSTELLO Unavailable Unavailable REINDL, GHISLAINE COSTELLO Unavailable Unavailable REINDL, GHISLAINE COSTELLO Unavailable Unavailable REINDL, GHISLAINE COSTELLO Unavailable Unavailable REINDL, GHISLAINE COSTELLO Unavailable Unavailable REINDL, GHISLAINE COSTELLO Unavailable Unavailable REINDL, GHISLAINE COSTELLO Unavailable Unavailable REINDL, GHISLAINE COSTELLO Unavailable Unavailable REINDL, GHISLAINE COSTELLO Unavailable Unavailable REINDL, GHISLAINE COSTELLO Unavailable Unavailable Piper Morrow MD Unavailable Unavailable Piper Morrow MD Unavailable Unavailable Piper Morrow MD Unavailable Unavailable Piper Morrow MD Unavailable Unavailable Piper Morrow MD Unavailable Unavailable Piper Morrow MD Unavailable Unavailable Piper Morrow MD Unavailable Unavailable Piper Morrow MD Unavailable Unavailable Piper Morrow MD Unavailable Unavailable Piper Morrow MD Unavailable Unavailable Piper Morrow MD Unavailable Unavailable Piper Morrow MD Unavailable Unavailable Piper Morrow MD Unavailable Unavailable Piper Morrow MD Unavailable Unavailable Piper Morrow MD Unavailable Unavailable Piper Morrow MD Unavailable Unavailable Piper Morrow MD Unavailable Unavailable Piper Morrow MD Unavailable Unavailable Piper Morrow MD Unavailable Unavailable Piper Morrow MD Unavailable Unavailable Piper Morrow MD Unavailable Unavailable Piper Morrow MD Unavailable Unavailable Piper Morrow MD Unavailable Unavailable Piper Morrow MD Unavailable Unavailable Piper Morrow MD Unavailable Unavailable Odalys, Piper Lind MD Unavailable Unavailable Odalys, Piper Lind MD Unavailable Unavailable [place], D Diogo MD Unavailable Unavailable Odalys, D Diogo MD Unavailable Unavailable Odalys, D Diogo MD Unavailable Unavailable [place], D Diogo MD Unavailable Unavailable Odalys, D Diogo MD Unavailable Unavailable Odalys, D Diogo MD Unavailable Unavailable Odalys, D Diogo MD Unavailable Unavailable Odalys, D Diogo MD Unavailable Unavailable [place], D Diogo MD Unavailable Unavailable Odalys, D Diogo MD Unavailable Unavailable Odalys, D Diogo MD Unavailable Unavailable [place], D Diogo MD Unavailable Unavailable Odalys, D Diogo MD Unavailable Unavailable [place], D Diogo MD Unavailable Unavailable Odalys, D Diogo MD Unavailable Unavailable Odalys, D Diogo MD Unavailable Unavailable Odalys, D Diogo MD Unavailable Unavailable [place], D Diogo MD Unavailable Unavailable Odalys, D Diogo MD Unavailable Unavailable [place], D Diogo MD Unavailable Unavailable [place], D Diogo MD Unavailable Unavailable [place], D Diogo MD Unavailable Unavailable [place], D Diogo MD Unavailable Unavailable [place], D Diogo MD Unavailable Unavailable [place], D Diogo MD Unavailable Unavailable [place], D Diogo MD Unavailable Unavailable Odalys, D Diogo MD Unavailable Unavailable [place], Piper Lind MD Unavailable Unavailable Re-disclosure Warning The records that [...] by Article 27-F of the [facility] Public Health law. If you continue you may have access to information: Regarding HIV / AIDS; Provided by facilities licensed or operated by the [facility] Office of Mental Health; or Provided by the [facility] Office for People With Developmental Disabilities. If such information is present, then the following [facility] mandated warning applies: This information has been [...] law may result in a fine or shelter sentence or both. A general authorization for the release of medical or other information is NOT sufficient authorization for further disc losure. Family History Family Member Name Family Member Gender Family Member Status Date o f Status Description Data Source(s) Unknown Unknown Problem MEDENT ([facility]) Unknown Male Problem MEDENT ([facility]) Unknown Male Problem MEDENT ([facility]) () Encounters Encounter Providers Location Date Indications Data Source(s ) Outpatient Attender: GHISLAINE Harrell/Jazmine/Akash/Alicia [place]ves 04/14/2021 02:45:00 PM EDT MEDENT ([facility]) [place] [address] [facility] [place] [address] 04/11/2021 12:00:00 AM EDT [facility]CW1 ([facility] Unknown [address] [facility] [place] [address] 04/07/2021 12:00:00 AM EDT eCW1 ([facility]) [place] [address] [facility] [address] [place] [address] 03/31/2021 12:00:00 AM EDT eCW1 ([facility]) Unknown [address] [facility] [place] [address] 03/30/2021 12:00:00 AM EDT eCW1 ([facility]) Unknown [address] [facility] [place] [address] 03/25/2021 12:00:00 AM EDT eCW1 ([facility]) Unknown [address] [facility] [address] [place] [address] 03/24/2021 12:00:00 AM EDT eCW1 ([facility]) Outpatient [address] [facility] [place] [place] [address] 03/21/2021 12:00:00 AM EDT eCW1 ([facility]) [place] [address] [facility] [place] [address] 03/18/2021 12:00:00 AM EDT eCW1 ([facility]) Outpatient Attender: GHISLAINE Harrell/Jazmine/Akash/Alicia groves 03/17/2021 01:30:00 PM EDT MEDENT ([facility]) [place] [address] [facility] [place] [address] 03/15/2021 12:00:00 AM EDT eCW1 ([facility]) [place] [address] [facility] [place] [address] 03/10/2021 12:00:00 AM EDT eCW1 ([facility]) [place] [address] [facility] [place] [address] 03/04/2021 12:00:00 AM EDT eCW1 ([facility]) [place] [address] [facility] [place] [address] 03/03/2021 12:00:00 AM EDT eCW1 ([facility]) [place] [address] [facility] [place] [address] 03/03/2021 12:00:00 AM EDT eCW1 ([facility]) [place] [address] [facility] [place] [address] 02/09/2021 12:00:00 AM EDT eCW1 ([facility]) [place] [address] [facility] [place] [address] 02/07/2021 12:00:00 AM EDT eCW1 ([facility]) [place] [address] [facility] [place] [address] 02/04/2021 12:00:00 AM EDT eCW1 ([facility]) [place] [address] [facility] [place] [address] 02/03/2021 12:00:00 AM EDT eCW1 ([facility]) [place] [address] [facility] [place] [address] 01/31/2021 12:00:00 AM EDT eCW1 ([facility]) Outpatient Attender: GHISLAINE Harrell/Jazmine/Akash/Alicia groves 01/24/2021 08:50:00 AM EDT MEDENT ([facility]) [place] [address] [facility] [place] [address] 01/19/2021 12:00:00 AM EDT eCW1 ([facility]) [place] [address] [facility] [place] [address] 01/17/2021 12:00:00 AM EDT eCW1 ([facility]) Unknown [address] [facility] [place] [address] 01/14/2021 12:00:00 AM EDT eCW1 ([facility]) [place] [address] [facility] [place] [address] 01/13/2021 12:00:00 AM EDT eCW1 ([facility]) [place] [address] [facility] [place] [address] 01/11/2021 12:00:00 AM EDT eCW1 ([facility]) [place] [address] [facility] [place] [address] 01/11/2021 12:00:00 AM EDT eCW1 ([facility]) [place] [address] [facility] [place] [address] 01/07/2021 12:00:00 AM EDT eCW1 ([facility]) [place] [address] [facility] [place] [address] 01/05/2021 12:00:00 AM EDT eCW1 ([facility]) [place] [address] [facility] [place] [address] 01/05/2021 12:00:00 AM EDT eCW1 ([facility]) Unknown [address] [facility] [place] [address] 01/05/2021 12:00:00 AM EDT eCW1 ([facility]) Unknown [address] [facility] [place] [address] 01/04/2021 12:00:00 AM EDT eCW1 ([facility]) [place] [address] [facility] [place] [address] 01/03/2021 12:00:00 AM EDT eCW1 ([facility]) [place] [address] [facility] [place] [address] 12/29/2020 12:00:00 AM EDT eCW1 ([facility]) [place] [address] [facility] [place] [address] 12/29/2020 12:00:00 AM EDT eCW1 ([facility]) Unknown [address] [facility] [place] [address] 12/28/2020 12:00:00 AM EDT eCW1 ([facility]) [place] [address] [facility] [place] [address] 12/23/2020 12:00:00 AM EDT eCW1 ([facility]) [place] [address] [facility] [place] [address] 12/22/2020 12:00:00 AM EDT eCW1 ([facility]) [place] [address] [facility] [place] [address] 12/15/2020 12:00:00 AM EDT eCW1 ([facility]) Outpatient Attender: Diogo Morrow MD 12/14/2020 11:00:00 PM EDT 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[facility] 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[place] [address] [facility] [place] [address] 12/13/2020 12:00:00 AM EDT eCW1 ([facility]) [place] [address] [facility] [place] [address] 12/13/2020 12:00:00 AM EDT eCW1 ([facility]) [place] [address] [facility] [place] [address] 12/09/2020 12:00:00 AM EDT eCW1 ([facility]) [place] [address] [facility] [place] [address] 12/09/2020 12:00:00 AM EDT [facility]CW1 [facility] [place] [address] [facility] [place] [address] 12/09/2020 12:00:00 AM EDT eCW1 [facility] [place] [address] [facility] [place] [address] 12/07/2020 12:00:00 AM EDT eCW1 ([facility]) [place] [address] [facility] [place] [address] 12/06/2020 12:00:00 AM EDT eCW1 ([facility]) [place] [address] [facility] [place] [address] 12/02/2020 12:00:00 AM EDT eCW1 ([facility]) [place] [address] [facility] [place] [address] 12/01/2020 12:00:00 AM EDT [facility] [address] [facility] [address] [place] [address] 11/30/2020 12:00:00 AM EDT eCW1 ([facility]) Unknown [address] [facility] [address] [place] [address] 11/23/2020 12:00:00 AM EDT eCW1 ([facility]) Outpatient [address] [facility] [place] [address] 11/18/2020 12:00:00 AM EDT eCW1 ([facility]) Outpatient Attender: GHISLAINE Harrell/Jazmine/Akash/Alicia groves 10/14/2020 01:45:00 PM EDT MEDENT ([facility]) Outpatient Attender: Denice morales 09/29/2020 10:30:00 AM EDT MEDENT ([facility]) [place] [address] [facility] [place] [address] 09/08/2020 12:00:00 AM EDT eCW1 ([facility]) Unknown [address] [facility] [address] [place] [address] 08/31/2020 12:00:00 AM EST eCW1 ([facility]) [place] [address] [facility] [place] [address] 08/02/2020 12:00:00 AM EST eCW1 ([facility]) [place] [address] [facility] [place] [address] 07/21/2020 12:00:00 AM EST eCW1 ([facility]) Unknown [address] [facility] [address] [place] [address] 07/20/2020 12:00:00 AM EST eCW1 ([facility]) [place] [address] [facility] [place] [address] 07/15/2020 12:00:00 AM EST eCW1 ([facility]) [place] [address] [facility] [place] [address] 06/07/2020 12:00:00 AM EST eCW1 ([facility]) Outpatient [address] [facility] [address] [place] [address] 05/06/2020 12:00:00 AM EST eCW1 ([facility]) Unknown [address] [facility] [address] [place] [address] 04/23/2020 12:00:00 AM EDT eCW1 ([facility]) [place] [address] [facility] [place] [address] 04/23/2020 12:00:00 AM EDT eCW1 ([facility]) Unknown [address] [facility] [address] [place] [address] 04/19/2020 12:00:00 AM EDT eCW1 ([facility]) [place] [address] [facility] [place] [address] 04/01/2020 12:00:00 AM EDT eCW1 ([facility]) Immunizations Vaccine Date Status Description Data Source(s) Hepatitis B 0.5mL HEPLISAV-B 12/22/2020 12:06:00 PM EDT completed eCW1 ([facility]) Hepatitis B 0.5mL HEPLISAV-B 12/22/2020 12:06:00 PM EDT completed eCW1 ([facility]) Hepatitis B 0.5mL HEPLISAV-B 12/22/2020 12:06:00 PM EDT completed eCW1 ([facility]) Hepatitis B 0.5mL HEPLISAV-B 12/22/2020 12:06:00 PM EDT completed eCW1 ([facility]) Hepatitis B 0.5mL HEPLISAV-B 12/22/2020 12:06:00 PM EDT completed eCW1 ([facility]) Hepatitis B 0.5mL HEPLISAV-B 12/22/2020 12:06:00 PM EDT completed eCW1 ([facility]) Hepatitis B 0.5mL HEPLISAV-B 12/22/2020 12:06:00 PM EDT completed eCW1 ([facility]) Hepatitis B 0.5mL HEPLISAV-B 12/22/2020 12:06:00 PM EDT completed eCW1 ([facility]) Hepatitis B 0.5mL HEPLISAV-B 12/22/2020 12:06:00 PM EDT completed eCW1 ([facility]) Hepatitis B 0.5mL HEPLISAV-B 12/22/2020 12:06:00 PM EDT completed eCW1 ([facility]) Hepatitis B 0.5mL HEPLISAV-B 12/22/2020 12:06:00 PM EDT completed eCW1 ([facility]) Hepatitis B 0.5mL HEPLISAV-B 12/22/2020 12:06:00 PM EDT completed eCW1 ([facility]) Hepatitis B 0.5mL HEPLISAV-B 12/22/2020 12:06:00 PM EDT completed eCW1 ([facility]) Hepatitis B 0.5mL HEPLISAV-B 12/22/2020 12:06:00 PM EDT completed eCW1 ([facility]) Hepatitis B 0.5mL HEPLISAV-B 12/22/2020 12:06:00 PM EDT completed eCW1 ([facility]) Hepatitis B 0.5mL HEPLISAV-B 12/22/2020 12:06:00 PM EDT completed eCW1 ([facility]) Hepatitis B 0.5mL HEPLISAV-B 12/22/2020 12:06:00 PM EDT completed eCW1 ([facility]) Hepatitis B 0.5mL HEPLISAV-B 12/22/2020 12:06:00 PM EDT completed eCW1 ([facility]) Hepatitis B 0.5mL HEPLISAV-B 12/22/2020 12:06:00 PM EDT completed eCW1 ([facility]) Hepatitis B 0.5mL HEPLISAV-B 12/22/2020 12:06:00 PM EDT completed eCW1 ([facility]) Hepatitis B 0.5mL HEPLISAV-B 12/22/2020 12:06:00 PM EDT completed eCW1 ([facility]) Hepatitis B 0.5mL HEPLISAV-B 12/22/2020 12:06:00 PM EDT completed eCW1 ([facility]) Hepatitis B 0.5mL HEPLISAV-B 12/22/2020 12:06:00 PM EDT completed eCW1 ([facility]) Hepatitis B 0.5mL HEPLISAV-B 12/22/2020 12:06:00 PM EDT completed eCW1 ([facility]) Hepatitis B 0.5mL HEPLISAV-B 12/22/2020 12:06:00 PM EDT completed eCW1 ([facility]) Hepatitis B 0.5mL HEPLISAV-B 12/22/2020 12:06:00 PM EDT completed eCW1 ([facility]) Hepatitis B 0.5mL HEPLISAV-B 12/22/2020 12:06:00 PM EDT completed eCW1 ([facility]) Hepatitis B 0.5mL HEPLISAV-B 12/22/2020 12:06:00 PM EDT completed eCW1 ([facility]) Hepatitis B 0.5mL HEPLISAV-B 12/22/2020 12:06:00 PM EDT completed eCW1 ([facility]) Hepatitis B 0.5mL HEPLISAV-B 12/22/2020 12:06:00 PM EDT completed eCW1 ([facility]) Hepatitis B 0.5mL HEPLISAV-B 12/22/2020 12:06:00 PM EDT completed eCW1 ([facility]) Hepatitis B 0.5mL HEPLISAV-B 12/22/2020 12:06:00 PM EDT completed eCW1 ([facility]) Hepatitis B 0.5mL HEPLISAV-B 12/22/2020 12:06:00 PM EDT completed eCW1 ([facility]) Hepatitis B 0.5mL HEPLISAV-B 12/22/2020 12:06:00 PM EDT completed eCW1 ([facility]) Hepatitis B 0.5mL HEPLISAV-B 12/22/2020 12:06:00 PM EDT completed eCW1 ([facility]) Hepatitis B 0.5mL HEPLISAV-B 12/07/2020 12:35:00 PM EDT completed eCW1 ([facility]) Hepatitis B 0.5mL HEPLISAV-B 12/07/2020 12:35:00 PM EDT completed eCW1 ([facility]) Hepatitis B 0.5mL HEPLISAV-B 12/07/2020 12:35:00 PM EDT completed eCW1 ([facility]) Hepatitis B 0.5mL HEPLISAV-B 12/07/2020 12:35:00 PM EDT completed eCW1 ([facility]) Hepatitis B 0.5mL HEPLISAV-B 12/07/2020 12:35:00 PM EDT completed eCW1 ([facility]) Hepatitis B 0.5mL HEPLISAV-B 12/07/2020 12:35:00 PM EDT completed eCW1 ([facility]) Hepatitis B 0.5mL HEPLISAV-B 12/07/2020 12:35:00 PM EDT completed eCW1 ([facility]) Hepatitis B 0.5mL HEPLISAV-B 12/07/2020 12:35:00 PM EDT completed eCW1 ([facility]) Hepatitis B 0.5mL HEPLISAV-B 12/07/2020 12:35:00 PM EDT completed eCW1 ([facility]) Hepatitis B 0.5mL HEPLISAV-B 12/07/2020 12:35:00 PM EDT completed eCW1 ([facility]) Hepatitis B 0.5mL HEPLISAV-B 12/07/2020 12:35:00 PM EDT completed eCW1 ([facility]) Hepatitis B 0.5mL HEPLISAV-B 12/07/2020 12:35:00 PM EDT completed eCW1 ([facility]) Hepatitis B 0.5mL HEPLISAV-B 12/07/2020 12:35:00 PM EDT completed eCW1 ([facility]) Hepatitis B 0.5mL HEPLISAV-B 12/07/2020 12:35:00 PM EDT completed eCW1 ([facility]) Hepatitis B 0.5mL HEPLISAV-B 12/07/2020 12:35:00 PM EDT completed eCW1 ([facility]) Hepatitis B 0.5mL HEPLISAV-B 12/07/2020 12:35:00 PM EDT completed eCW1 ([facility]) Hepatitis B 0.5mL HEPLISAV-B 12/07/2020 12:35:00 PM EDT completed eCW1 ([facility]) Hepatitis B 0.5mL HEPLISAV-B 12/07/2020 12:35:00 PM EDT completed eCW1 ([facility]) Hepatitis B 0.5mL HEPLISAV-B 12/07/2020 12:35:00 PM EDT completed eCW1 ([facility]) Hepatitis B 0.5mL HEPLISAV-B 12/07/2020 12:35:00 PM EDT completed eCW1 ([facility]) Hepatitis B 0.5mL HEPLISAV-B 12/07/2020 12:35:00 PM EDT completed eCW1 ([facility]) Hepatitis B 0.5mL HEPLISAV-B 12/07/2020 12:35:00 PM EDT completed eCW1 ([facility]) Hepatitis B 0.5mL HEPLISAV-B 12/07/2020 12:35:00 PM EDT completed eCW1 ([facility]) Hepatitis B 0.5mL HEPLISAV-B 12/07/2020 12:35:00 PM EDT completed eCW1 ([facility]) Hepatitis B 0.5mL HEPLISAV-B 12/07/2020 12:35:00 PM EDT completed eCW1 ([facility]) Hepatitis B 0.5mL HEPLISAV-B 12/07/2020 12:35:00 PM EDT completed eCW1 ([facility]) Hepatitis B 0.5mL HEPLISAV-B 12/07/2020 12:35:00 PM EDT completed eCW1 ([facility]) Hepatitis B 0.5mL HEPLISAV-B 12/07/2020 12:35:00 PM EDT completed eCW1 ([facility]) Hepatitis B 0.5mL HEPLISAV-B 12/07/2020 12:35:00 PM EDT completed eCW1 ([facility]) Hepatitis B 0.5mL HEPLISAV-B 12/07/2020 12:35:00 PM EDT completed eCW1 ([facility]) Hepatitis B 0.5mL HEPLISAV-B 12/07/2020 12:35:00 PM EDT completed eCW1 ([facility]) Hepatitis B 0.5mL HEPLISAV-B 12/07/2020 12:35:00 PM EDT completed eCW1 ([facility]) Hepatitis B 0.5mL HEPLISAV-B 12/07/2020 12:35:00 PM EDT completed eCW1 ([facility]) Hepatitis B 0.5mL HEPLISAV-B 12/07/2020 12:35:00 PM EDT completed eCW1 ([facility]) Hepatitis B 0.5mL HEPLISAV-B 12/07/2020 12:35:00 PM EDT completed eCW1 ([facility]) Hepatitis B 0.5mL HEPLISAV-B 12/07/2020 12:35:00 PM EDT completed eCW1 ([facility]) Hepatitis B 0.5mL HEPLISAV-B 12/07/2020 12:35:00 PM EDT completed eCW1 ([facility]) Hepatitis B 0.5mL HEPLISAV-B 12/07/2020 12:35:00 PM EDT completed eCW1 ([facility]) Hepatitis B 0.5mL HEPLISAV-B 12/07/2020 12:35:00 PM EDT completed eCW1 ([facility]) Hepatitis B 0.5mL HEPLISAV-B 12/07/2020 12:35:00 PM EDT completed eCW1 ([facility]) Hepatitis B 0.5mL HEPLISAV-B 12/07/2020 12:35:00 PM EDT completed eCW1 ([facility]) Hepatitis B 0.5mL HEPLISAV-B 12/07/2020 12:35:00 PM EDT completed eCW1 ([facility]) Hepatitis B 0.5mL HEPLISAV-B 12/07/2020 12:35:00 PM EDT completed eCW1 ([facility]) Hepatitis B 0.5mL HEPLISAV-B 12/07/2020 12:35:00 PM EDT completed eCW1 ([facility]) Hepatitis B 0.5mL HEPLISAV-B 12/07/2020 12:35:00 PM EDT completed eCW1 ([facility]) influenza, recombinant, quadrIvalent,injectable, prese rvative free 05/06/2020 05:13:00 PM EST completed eCW1 ([facility]) influenza, recombinant, quadrIvalent,injectable, prese rvative free 05/06/2020 05:13:00 PM EST completed eCW1 ([facility]) influenza, recombinant, quadrIvalent,injectable, prese rvative free 05/06/2020 05:13:00 PM EST completed eCW1 ([facility]) influenza, recombinant, quadrIvalent,injectable, prese rvative free 05/06/2020 05:13:00 PM EST completed eCW1 ([facility]) influenza, recombinant, quadrIvalent,injectable, prese rvative free 05/06/2020 05:13:00 PM EST completed eCW1 ([facility]) influenza, recombinant, quadrIvalent,injectable, prese rvative free 05/06/2020 05:13:00 PM EST completed eCW1 ([facility]) influenza, recombinant, quadrIvalent,injectable, prese rvative free 05/06/2020 05:13:00 PM EST completed eCW1 ([facility]) influenza, recombinant, quadrIvalent,injectable, prese rvative free 05/06/2020 05:13:00 PM EST completed eCW1 ([facility]) influenza, recombinant, quadrIvalent,injectable, prese rvative free 05/06/2020 05:13:00 PM EST completed eCW1 ([facility]) influenza, recombinant, quadrIvalent,injectable, prese rvative free 05/06/2020 05:13:00 PM EST completed eCW1 ([facility]) influenza, recombinant, quadrIvalent,injectable, prese rvative free 05/06/2020 05:13:00 PM EST completed eCW1 ([facility]) influenza, recombinant, quadrIvalent,injectable, prese rvative free 05/06/2020 05:13:00 PM EST completed eCW1 ([facility]) influenza, recombinant, quadrIvalent,injectable, prese rvative free 05/06/2020 05:13:00 PM EST completed eCW1 ([facility]) influenza, recombinant, quadrIvalent,injectable, prese rvative free 05/06/2020 05:13:00 PM EST completed eCW1 ([facility]) influenza, recombinant, quadrIvalent,injectable, prese rvative free 05/06/2020 05:13:00 PM EST completed eCW1 ([facility]) influenza, recombinant, quadrIvalent,injectable, prese rvative free 05/06/2020 05:13:00 PM EST completed eCW1 ([facility]) influenza, recombinant, quadrIvalent,injectable, prese rvative free 05/06/2020 05:13:00 PM EST completed eCW1 ([facility]) influenza, recombinant, quadrIvalent,injectable, prese rvative free 05/06/2020 05:13:00 PM EST completed eCW1 ([facility]) influenza, recombinant, quadrIvalent,injectable, prese rvative free 05/06/2020 05:13:00 PM EST completed eCW1 ([facility]) influenza, recombinant, quadrIvalent,injectable, prese rvative free 05/06/2020 05:13:00 PM EST completed eCW1 ([facility]) influenza, recombinant, quadrIvalent,injectable, prese rvative free 05/06/2020 05:13:00 PM EST completed eCW1 ([facility]) influenza, recombinant, quadrIvalent,injectable, prese rvative free 05/06/2020 05:13:00 PM EST completed eCW1 ([facility]) influenza, recombinant, quadrIvalent,injectable, prese rvative free 05/06/2020 05:13:00 PM EST completed eCW1 ([facility]) influenza, recombinant, quadrIvalent,injectable, prese rvative free 05/06/2020 05:13:00 PM EST completed eCW1 ([facility]) influenza, recombinant, quadrIvalent,injectable, prese rvative free 05/06/2020 05:13:00 PM EST completed eCW1 ([facility]) influenza, recombinant, quadrIvalent,injectable, prese rvative free 05/06/2020 05:13:00 PM EST completed eCW1 ([facility]) influenza, recombinant, quadrIvalent,injectable, prese rvative free 05/06/2020 05:13:00 PM EST completed eCW1 ([facility]) influenza, recombinant, quadrIvalent,injectable, prese rvative free 05/06/2020 05:13:00 PM EST completed eCW1 ([facility]) influenza, recombinant, quadrIvalent,injectable, prese rvative free 05/06/2020 05:13:00 PM EST completed eCW1 ([facility]) influenza, recombinant, quadrIvalent,injectable, prese rvative free 05/06/2020 05:13:00 PM EST completed eCW1 ([facility]) influenza, recombinant, quadrIvalent,injectable, prese rvative free 05/06/2020 05:13:00 PM EST completed eCW1 ([facility]) influenza, recombinant, quadrIvalent,injectable, prese rvative free 05/06/2020 05:13:00 PM EST completed eCW1 ([facility]) influenza, recombinant, quadrIvalent,injectable, prese rvative free 05/06/2020 05:13:00 PM EST completed eCW1 ([facility]) influenza, recombinant, quadrIvalent,injectable, prese rvative free 05/06/2020 05:13:00 PM EST completed eCW1 ([facility]) influenza, recombinant, quadrIvalent,injectable, prese rvative free 05/06/2020 05:13:00 PM EST completed eCW1 ([facility]) influenza, recombinant, quadrIvalent,injectable, prese rvative free 05/06/2020 05:13:00 PM EST completed eCW1 ([facility]) influenza, recombinant, quadrIvalent,injectable, prese rvative free 05/06/2020 05:13:00 PM EST completed eCW1 ([facility]) influenza, recombinant, quadrIvalent,injectable, prese rvative free 05/06/2020 05:13:00 PM EST completed eCW1 ([facility]) influenza, recombinant, quadrIvalent,injectable, prese rvative free 05/06/2020 05:13:00 PM EST completed eCW1 ([facility]) influenza, recombinant, quadrIvalent,injectable, prese rvative free 05/06/2020 05:13:00 PM EST completed eCW1 ([facility]) influenza, recombinant, quadrIvalent,injectable, prese rvative free 05/06/2020 05:13:00 PM EST completed eCW1 ([facility]) influenza, recombinant, quadrIvalent,injectable, prese rvative free 05/06/2020 05:13:00 PM EST completed eCW1 ([facility]) influenza, recombinant, quadrIvalent,injectable, prese rvative free 05/06/2020 05:13:00 PM EST completed eCW1 ([facility]) influenza, recombinant, quadrIvalent,injectable, prese rvative free 05/06/2020 05:13:00 PM EST completed eCW1 ([facility]) influenza, recombinant, quadrIvalent,injectable, prese rvative free 05/06/2020 05:13:00 PM EST completed eCW1 ([facility]) influenza, recombinant, quadrIvalent,injectable, prese rvative free 05/06/2020 05:13:00 PM EST completed eCW1 ([facility]) influenza, recombinant, quadrIvalent,injectable, prese rvative free 05/06/2020 05:13:00 PM EST completed eCW1 ([facility]) influenza, recombinant, quadrIvalent,injectable, prese rvative free 05/06/2020 05:13:00 PM EST completed eCW1 ([facility]) influenza, recombinant, quadrIvalent,injectable, prese rvative free 05/06/2020 05:13:00 PM EST completed eCW1 ([facility]) influenza, recombinant, quadrIvalent,injectable, prese rvative free 05/06/2020 05:13:00 PM EST completed eCW1 ([facility]) influenza, recombinant, quadrIvalent,injectable, prese rvative free 05/06/2020 05:13:00 PM EST completed eCW1 ([facility]) influenza, recombinant, quadrIvalent,injectable, prese rvative free 05/06/2020 05:13:00 PM EST completed eCW1 ([facility]) influenza, recombinant, quadrIvalent,injectable, prese rvative free 05/06/2020 05:13:00 PM EST completed eCW1 ([facility]) influenza, recombinant, quadrIvalent,injectable, prese rvative free 05/06/2020 05:13:00 PM EST completed eCW1 ([facility]) influenza, recombinant, quadrIvalent,injectable, prese rvative free 05/06/2020 05:13:00 PM EST completed eCW1 ([facility]) influenza, recombinant, quadrIvalent,injectable, prese rvative free 05/06/2020 05:13:00 PM EST completed eCW1 ([facility]) Medications Medication Brand Name Start Date Product Form Dose Route Admi nistrative Instructions Pharmacy Instructions Status Indications Reaction Description Data Source(s) Amoxicillin 875 MG / Clavulanate 125 MG Oral Tablet [Augment in] Augmentin 04/14/2021 12:00:00 AM EDT ORAL active MEDENT ([facility]) Cyclobenzaprine hydrochloride 5 MG Oral Tablet CYCLOBENZAPRI NE HCL 04/09/2021 12:00:00 AM EDT tablet 30 TAKE ONE TABLET BY MOUTH AT BEDTIME NEEDED TAKE ONE TABLET BY MOUTH AT BEDTIME NEEDED SOLD: 04/10/2021 [facility] 25 mg 04/09/2021 12:00:00 AM EDT capsule 30 TAKE ONE CAPSULE BY MOUTH AT BEDTIME TAKE ONE CAPSULE BY MOUTH AT BEDTIME SOLD: 04/10/2021 [facility] Cyclobenzaprine hydrochloride 5 MG Oral Tablet Cyclobe nzaprine HCl 5 MG Cyclobenzaprine HCl 5 MG 04/08/2021 12:00:00 AM EDT 1.0 {tablet_at_bedtime_as_needed} active Cy clobenzaprine HCl 5 MG eCW1 ([facility]) Cyclobenzaprine hydrochloride 5 MG Oral Tablet Cyclobe nzaprine HCl 5 MG Cyclobenzaprine HCl 5 MG 04/08/2021 12:00:00 AM EDT 1.0 {tablet_at_bedtime_as_needed} active Cy clobenzaprine HCl 5 MG eCW1 ([facility]) 3 ML Insulin Glargine 100 UNT/ML Pen Injector [Basagla r] 100 unit/mL (3 mL) INSULIN GLARGINE,HUM.REC.ANLOG 04/01/2021 12:00:00 AM EDT insulin pen 60 INJECT 70 UNITS UNDER THE SKIN EVERY MORNING AND 90 UNITS EVERY EVENING DIRECTED INJECT 70 UNITS UNDER THE SKIN EVERY MOR TIERRA AND 90 UNITS EVERY EVENING DIRECTED SOLD: 04/02/2021 [facility] 10 gram/15 mL 03/18/2021 12:00:00 AM EDT solution 1892 TAKE 30ML BY MOUTH TWO TIMES A DAY (CONSTIPATION AND HE) TAKE 30ML BY MOUTH TWO TIMES A DAY (CONSTIPATION AND HE) SOLD: 03/19/2021 [facility] 10 mg 03/18/2021 12:00:00 AM EDT tablet 30 TAKE ONE TABLET BY MOUTH EVERY DAY IN THE MORNING TAKE ONE TABLET BY MOUTH EVERY DAY IN THE MORNING SOLD : 03/19/2021 [facility] Lactulose 667 MG/ML Oral Solution Lactulose 03/17/2021 12:00:00 AM EDT ORAL active MEDENT ([facility] ) torsemide 10 MG Oral Tablet Torsemide 03/17/2021 12:00:00 AM EDT active MEDENT ([facility] ) 1,000 mg 03/02/2021 12:00:00 AM EDT tablet 60 TAKE ONE TABLET BY MOUTH TWICE A DAY WITH FOOD TAKE ONE TABLET BY MOUTH TWICE A DAY WITH FOOD SOLD: 1 [facility] 25 mg 03/02/2021 12:00:00 AM EDT capsule 30 TAKE ONE CAPSULE BY MOUTH AT BEDTIME NEEDED TAKE ONE CAPSULE BY MOUTH AT BEDTIME NEEDED SOLD: 03/03/2021 [facility] 1,000 mg 03/02/2021 12:00:00 AM EDT tablet 60 TAKE ONE TABLET BY MOUTH TWICE A DAY WITH FOOD TAKE ONE TABLET BY MOUTH TWICE A DAY WITH FOOD SOLD: 0 03/03/2021 [facility] Diphenhydramine Hydrochloride 25 MG Oral Capsule diphe nhydrAMINE HCl 25 MG diphenhydrAMINE HCl 25 MG 03/01/2021 12:00:00 AM EDT 1.0 {capsule_at_bedtime_as_needed} active d iphenhydrAMINE HCl 25 MG eCW1 ([facility]) Diphenhydramine Hydrochloride 25 MG Oral Capsule diphe nhydrAMINE HCl 25 MG diphenhydrAMINE HCl 25 MG 03/01/2021 12:00:00 AM EDT 1.0 {capsule_at_bedtime_as_needed} active d iphenhydrAMINE HCl 25 MG eCW1 ([facility]) Diphenhydramine Hydrochloride 25 MG Oral Capsule diphe nhydrAMINE HCl 25 MG diphenhydrAMINE HCl 25 MG 03/01/2021 12:00:00 AM EDT 1.0 {capsule_at_bedtime_as_needed} active d iphenhydrAMINE HCl 25 MG eCW1 ([facility]) Diphenhydramine Hydrochloride 25 MG Oral Capsule diphe nhydrAMINE HCl 25 MG diphenhydrAMINE HCl 25 MG 03/01/2021 12:00:00 AM EDT 1.0 {capsule_at_bedtime_as_needed} active d iphenhydrAMINE HCl 25 MG eCW1 ([facility]) Diphenhydramine Hydrochloride 25 MG Oral Capsule diphe nhydrAMINE HCl 25 MG diphenhydrAMINE HCl 25 MG 03/01/2021 12:00:00 AM EDT 1.0 {capsule_at_bedtime_as_needed} active d iphenhydrAMINE HCl 25 MG eCW1 ([facility]) Diphenhydramine Hydrochloride 25 MG Oral Capsule diphe nhydrAMINE HCl 25 MG diphenhydrAMINE HCl 25 MG 03/01/2021 12:00:00 AM EDT 1.0 {capsule_at_bedtime_as_needed} active d iphenhydrAMINE HCl 25 MG eCW1 ([facility]) Diphenhydramine Hydrochloride 25 MG Oral Capsule diphe nhydrAMINE HCl 25 MG diphenhydrAMINE HCl 25 MG 03/01/2021 12:00:00 AM EDT 1.0 {capsule_at_bedtime_as_needed} active d iphenhydrAMINE HCl 25 MG eCW1 ([facility]) Diphenhydramine Hydrochloride 25 MG Oral Capsule diphe nhydrAMINE HCl 25 MG diphenhydrAMINE HCl 25 MG 03/01/2021 12:00:00 AM EDT 1.0 {capsule_at_bedtime_as_needed} active d iphenhydrAMINE HCl 25 MG eCW1 ([facility]) Diphenhydramine Hydrochloride 25 MG Oral Capsule diphe nhydrAMINE HCl 25 MG diphenhydrAMINE HCl 25 MG 03/01/2021 12:00:00 AM EDT 1.0 {capsule_at_bedtime_as_needed} active d iphenhydrAMINE HCl 25 MG eCW1 ([facility]) Diphenhydramine Hydrochloride 25 MG Oral Capsule diphe nhydrAMINE HCl 25 MG diphenhydrAMINE HCl 25 MG 03/01/2021 12:00:00 AM EDT 1.0 {capsule_at_bedtime_as_needed} active d iphenhydrAMINE HCl 25 MG eCW1 ([facility]) Diphenhydramine Hydrochloride 25 MG Oral Capsule diphe nhydrAMINE HCl 25 MG diphenhydrAMINE HCl 25 MG 03/01/2021 12:00:00 AM EDT 1.0 {capsule_at_bedtime_as_needed} active d iphenhydrAMINE HCl 25 MG eCW1 ([facility]) Diphenhydramine Hydrochloride 25 MG Oral Capsule diphe nhydrAMINE HCl 25 MG diphenhydrAMINE HCl 25 MG 03/01/2021 12:00:00 AM EDT 1.0 {capsule_at_bedtime_as_needed} active d iphenhydrAMINE HCl 25 MG eCW1 ([facility]) Diphenhydramine Hydrochloride 25 MG Oral Capsule diphe nhydrAMINE HCl 25 MG diphenhydrAMINE HCl 25 MG 03/01/2021 12:00:00 AM EDT 1.0 {capsule_at_bedtime_as_needed} active d iphenhydrAMINE HCl 25 MG eCW1 ([facility]) Diphenhydramine Hydrochloride 25 MG Oral Capsule diphe nhydrAMINE HCl 25 MG diphenhydrAMINE HCl 25 MG 03/01/2021 12:00:00 AM EDT 1.0 {capsule_at_bedtime_as_needed} active d iphenhydrAMINE HCl 25 MG eCW1 ([facility]) tizanidine 4 MG Oral Tablet TIZANIDINE HCL 02/15/2021 12:00:00 AM EDT tablet 30 TAKE ONE TABLET BY MOUTH AT BEDTIME NEEDED FOR SPAS MS TAKE ONE TABLET BY MOUTH AT BEDTIME NEEDED FOR SPASMS SOLD: 02/16/2021 [facility] [place] 02/09/2021 12:00:00 AM EDT misc 100 TEST FOUR TIMES A DAY DIRECTED TEST FOUR TIMES A DAY DIRECTED SOLD: 04/02/2021 [facility] [place] 02/09/2021 12:00:00 AM EDT misc 100 TEST FOUR TIMES A DAY DIRECTED TEST FOUR TIMES A DAY DIRECTED SOLD: 03/09/2021 [facility] 33 gauge 02/09/2021 12:00:00 AM EDT misc 100 TEST FOUR TIMES A DAY DIRECTED TEST FOUR TIMES A DAY DIRECTED SOLD: 02/09/2021 [facility] 325 mg (65 mg iron) 02/08/2021 12:00:00 AM EDT tablet 30 TAKE ONE TABLET BY MOUTH EVERY DAY TAKE ONE TABLET BY MOUTH EVERY DAY SOLD: 02/09/2021 [facility] 50 mg 02/08/2021 12:00:00 AM EDT tablet 56 TAKE ONE TABLET BY MOUTH TWICE A DAY NEEDED MAXIMUM DAILY DOSE = 2 TABLETS TAKE ONE TABLET BY MOUTH TWICE A DAY NEEDED MAXIMUM DAILY DOSE = 2 TABLETS SOLD: 02/09/2021 [facility] 325 mg (65 mg iron) 02/08/2021 12:00:00 AM EDT tablet 30 TAKE ONE TABLET BY MOUTH EVERY DAY TAKE ONE TABLET BY MOUTH EVERY DAY SOLD: 03/12/2021 [facility] 325 mg (65 mg iron) 02/08/2021 12:00:00 AM EDT tablet 30 TAKE ONE TABLET BY MOUTH EVERY DAY TAKE ONE TABLET BY MOUTH EVERY DAY SOLD: 04/11/2021 [facility] Lancets - Lancets - 02/07/2021 12:00:00 AM EDT act miguel angel [facility] - eCW1 ([facility]) Lancets - Lancets - 02/07/2021 12:00:00 AM EDT act miguel angel Lancets - eCW1 ([facility]) tramadol hydrochloride 50 MG Oral Tablet traMADol HCl 50 MG traMADol HCl 50 MG 02/07/2021 12:00:00 AM EDT 1.0 {tablet_as_needed} active traMADol HCl 50 MG eCW1 ([facility]) tramadol hydrochloride 50 MG Oral Tablet traMADol HCl 50 MG traMADol HCl 50 MG 02/07/2021 12:00:00 AM EDT 1.0 {tablet_as_needed} active traMADol HCl 50 MG eCW1 ([facility]) tramadol hydrochloride 50 MG Oral Tablet traMADol HCl 50 MG traMADol HCl 50 MG 02/07/2021 12:00:00 AM EDT 1.0 {tablet_as_needed} active traMADol HCl 50 MG eCW1 ([facility]) tramadol hydrochloride 50 MG Oral Tablet traMADol HCl 50 MG traMADol HCl 50 MG 02/07/2021 12:00:00 AM EDT 1.0 {tablet_as_needed} active traMADol HCl 50 MG eCW1 ([facility]) tramadol hydrochloride 50 MG Oral Tablet traMADol HCl 50 MG traMADol HCl 50 MG 02/07/2021 12:00:00 AM EDT 1.0 {tablet_as_needed} active traMADol HCl 50 MG eCW1 ([facility]) Lancets - Lancets - 02/07/2021 12:00:00 AM EDT act miguel angel Lancets - eCW1 ([facility]) Lancets - Lancets - 02/07/2021 12:00:00 AM EDT act miguel angel Lancets - eCW1 ([facility]) Lancets - Lancets - 02/07/2021 12:00:00 AM EDT act miguel angel Lancets - eCW1 ([facility]) Lancets - Lancets - 02/07/2021 12:00:00 AM EDT act miguel angel Lancets - eCW1 ([facility]) Lancets - Lancets - 02/07/2021 12:00:00 AM EDT act miguel angel Lancets - eCW1 ([facility]) Lancets - Lancets - 02/07/2021 12:00:00 AM EDT act miguel angel Lancets - eCW1 ([facility]) tramadol hydrochloride 50 MG Oral Tablet traMADol HCl 50 MG traMADol HCl 50 MG 02/07/2021 12:00:00 AM EDT 1.0 {tablet_as_needed} active traMADol HCl 50 MG eCW1 ([facility]) Lancets - Lancets - 02/07/2021 12:00:00 AM EDT act miguel angel Lancets - eCW1 ([facility]) tramadol hydrochloride 50 MG Oral Tablet traMADol HCl 50 MG traMADol HCl 50 MG 02/07/2021 12:00:00 AM EDT 1.0 {tablet_as_needed} active traMADol HCl 50 MG eCW1 ([facility]) tramadol hydrochloride 50 MG Oral Tablet traMADol HCl 50 MG traMADol HCl 50 MG 02/07/2021 12:00:00 AM EDT 1.0 {tablet_as_needed} active traMADol HCl 50 MG eCW1 ([facility]) tramadol hydrochloride 50 MG Oral Tablet traMADol HCl 50 MG traMADol HCl 50 MG 02/07/2021 12:00:00 AM EDT 1.0 {tablet_as_needed} active traMADol HCl 50 MG eCW1 ([facility]) Lancets - Lancets - 02/07/2021 12:00:00 AM EDT act miguel angel Lancets - eCW1 ([facility]) tramadol hydrochloride 50 MG Oral Tablet traMADol HCl 50 MG traMADol HCl 50 MG 02/07/2021 12:00:00 AM EDT 1.0 {tablet_as_needed} active traMADol HCl 50 MG eCW1 ([facility]) tramadol hydrochloride 50 MG Oral Tablet traMADol HCl 50 MG traMADol HCl 50 MG 02/07/2021 12:00:00 AM EDT 1.0 {tablet_as_needed} active traMADol HCl 50 MG eCW1 ([facility]) Lancets - Lancets - 02/07/2021 12:00:00 AM EDT act miguel angel Lancets - eCW1 ([facility]) tramadol hydrochloride 50 MG Oral Tablet traMADol HCl 50 MG traMADol HCl 50 MG 02/07/2021 12:00:00 AM EDT 1.0 {tablet_as_needed} active traMADol HCl 50 MG eCW1 ([facility]) Lancets - Lancets - 02/07/2021 12:00:00 AM EDT act miguel angel Lancets - eCW1 ([facility]) Lancets - Lancets - 02/07/2021 12:00:00 AM EDT act miguel angel Lancets - eCW1 ([facility]) tramadol hydrochloride 50 MG Oral Tablet traMADol HCl 50 MG traMADol HCl 50 MG 02/07/2021 12:00:00 AM EDT 1.0 {tablet_as_needed} active traMADol HCl 50 MG eCW1 ([facility]) Lancets - Lancets - 02/07/2021 12:00:00 AM EDT act miguel angel [facility]ets - eCW1 ([facility]) tramadol hydrochloride 50 MG Oral Tablet traMADol HCl 50 MG traMADol HCl 50 MG 02/07/2021 12:00:00 AM EDT 1.0 {tablet_as_needed} active traMADol HCl 50 MG eCW1 ([facility]) tramadol hydrochloride 50 MG Oral Tablet traMADol HCl 50 MG traMADol HCl 50 MG 02/07/2021 12:00:00 AM EDT 1.0 {tablet_as_needed} active traMADol HCl 50 MG eCW1 ([facility]) Lancets - Lancets - 02/07/2021 12:00:00 AM EDT act miguel angel Lancets - eCW1 ([facility]) Lancets - Lancets - 02/07/2021 12:00:00 AM EDT act miguel angel Lancets - eCW1 ([facility]) Lancets - Lancets - 02/07/2021 12:00:00 AM EDT act miguel angel Lancets - eCW1 ([facility]) Lancets - Lancets - 02/07/2021 12:00:00 AM EDT act miguel angel Lancets - eCW1 ([facility]) tramadol hydrochloride 50 MG Oral Tablet traMADol HCl 50 MG traMADol HCl 50 MG 02/07/2021 12:00:00 AM EDT 1.0 {tablet_as_needed} active traMADol HCl 50 MG eCW1 ([facility]) NITROFURANTOIN, MACROCRYSTALS 25 MG / Ni trofurantoin, Monohydrate 75 MG Oral Capsule 100 mg NITROFURANTOIN MONOHYD/M-CRYST 02/05/2021 12:00:00 AM EDT ca psule 20 TAKE ONE CAPSULE BY MOUTH TWICE A DAY TAKE ONE CAPSULE BY MOUTH TWICE A DAY SOLD: 02/05/2021 [facility] Spironolactone 50 MG Oral Tablet Spironolactone 01/24/2021 12:00:00 A M EDT completed MEDENT ([facility], ) Furosemide 40 MG Oral Tablet Furosemide 01/24/2021 12:00:00 AM EDT ORAL completed MEDENT ([facility], ) 40 mg 01/24/2021 12:00:00 AM EDT tablet 60 TAKE ONE TABLET BY MOUTH TWICE A DAY TAKE ONE TABLET BY MOUTH TWICE A DAY SOLD: 01/29/2021 [facility] 40 mg 01/24/2021 12:00:00 AM EDT tablet 60 TAKE ONE TABLET BY MOUTH TWICE A DAY TAKE ONE TABLET BY MOUTH TWICE A DAY SOLD: 03/01/2021 [facility] 50 mg 01/18/2021 12:00:00 AM EDT tablet 14 TAKE 2 TABLETS BY MOUTH ONCE A DAY NEEDED MAXIMUM DAILY DOSE = 2 TABLETS TAKE 2 TABLETS BY MOUTH ONCE A DAY NEEDED MAXIMUM DAILY DOSE = 2 TABLETS SOLD: 01/20/2021 [facility] tizanidine 4 MG Oral Tablet TIZANIDINE HCL 01/16/2021 12:00:00 AM EDT tablet 30 TAKE ONE TABLET BY MOUTH AT BEDTIME NEEDED FOR SPAS MS TAKE ONE TABLET BY MOUTH AT BEDTIME NEEDED FOR SPASMS SOLD: 01/16/2021 [facility] 50 mg 01/11/2021 12:00:00 AM EDT tablet 7 TAKE ONE TABLET BY MOUTH ONCE DAILY NEEDED MAXIMUM DAILY DOSE = 1 TAKE ONE TABLET BY MOUTH ONCE DAILY NEEDED MAXIMUM DAILY DOSE = 1 SOLD: 01/11/2021 [facility] Wheelchair - Wheelchair - 01/04/2021 12:00:00 AM EDT active Wheelchair - eCW1 ([facility]) Wheelchair - Wheelchair - 01/04/2021 12:00:00 AM EDT active Wheelchair - eCW1 ([facility]) Wheelchair - Wheelchair - 01/04/2021 12:00:00 AM EDT active Wheelchair - eCW1 ([facility]) Wheelchair - Wheelchair - 01/04/2021 12:00:00 AM EDT active Wheelchair - eCW1 ([facility]) Wheelchair - Wheelchair - 01/04/2021 12:00:00 AM EDT active Wheelchair - eCW1 ([facility]) Wheelchair - Wheelchair - 01/04/2021 12:00:00 AM EDT active Wheelchair - eCW1 ([facility]) Wheelchair - Wheelchair - 01/04/2021 12:00:00 AM EDT active Wheelchair - eCW1 ([facility]) Wheelchair - Wheelchair - 01/04/2021 12:00:00 AM EDT active Wheelchair - eCW1 ([facility]) Wheelchair - Wheelchair - 01/04/2021 12:00:00 AM EDT active Wheelchair - eCW1 ([facility]) Wheelchair - Wheelchair - 01/04/2021 12:00:00 AM EDT active Wheelchair - eCW1 ([facility]) Wheelchair - Wheelchair - 01/04/2021 12:00:00 AM EDT active Wheelchair - eCW1 ([facility]) Wheelchair - Wheelchair - 01/04/2021 12:00:00 AM EDT active Wheelchair - eCW1 ([facility]) Wheelchair - Wheelchair - 01/04/2021 12:00:00 AM EDT active Wheelchair - eCW1 ([facility]) Wheelchair - Wheelchair - 01/04/2021 12:00:00 AM EDT active Wheelchair - eCW1 ([facility]) Wheelchair - Wheelchair - 01/04/2021 12:00:00 AM EDT active Wheelchair - eCW1 ([facility]) Wheelchair - Wheelchair - 01/04/2021 12:00:00 AM EDT active Wheelchair - eCW1 ([facility]) Wheelchair - Wheelchair - 01/04/2021 12:00:00 AM EDT active Wheelchair - eCW1 ([facility]) Wheelchair - Wheelchair - 01/04/2021 12:00:00 AM EDT active Wheelchair - eCW1 ([facility]) Wheelchair - Wheelchair - 01/04/2021 12:00:00 AM EDT active Wheelchair - eCW1 ([facility]) Wheelchair - Wheelchair - 01/04/2021 12:00:00 AM EDT active Wheelchair - eCW1 ([facility]) Wheelchair - Wheelchair - 01/04/2021 12:00:00 AM EDT active Wheelchair - eCW1 ([facility]) Wheelchair - Wheelchair - 01/04/2021 12:00:00 AM EDT active Wheelchair - eCW1 ([facility]) Wheelchair - Wheelchair - 01/04/2021 12:00:00 AM EDT active Wheelchair - eCW1 ([facility]) Wheelchair - Wheelchair - 01/04/2021 12:00:00 AM EDT active Wheelchair - eCW1 ([facility]) Wheelchair - Wheelchair - 01/04/2021 12:00:00 AM EDT active Wheelchair - eCW1 ([facility]) Wheelchair - Wheelchair - 01/04/2021 12:00:00 AM EDT active Wheelchair - eCW1 ([facility]) Wheelchair - Wheelchair - 01/04/2021 12:00:00 AM EDT active Wheelchair - eCW1 ([facility]) Wheelchair - Wheelchair - 01/04/2021 12:00:00 AM EDT active Wheelchair - eCW1 ([facility]) Wheelchair - Wheelchair - 01/04/2021 12:00:00 AM EDT active Wheelchair - eCW1 ([facility]) Wheelchair - Wheelchair - 01/04/2021 12:00:00 AM EDT active Wheelchair - eCW1 ([facility]) Wheelchair - Wheelchair - 01/04/2021 12:00:00 AM EDT active Wheelchair - eCW1 ([facility]) Furosemide 40 MG Oral Tablet [Lasix] Lasix 40 MG Lasix 40 MG 01/03/2021 12:00:00 AM EDT 1.0 {tablet} active Lasix 40 M G eCW1 ([facility]) Furosemide 40 MG Oral Tablet [Lasix] Lasix 40 MG Lasix 40 MG 01/03/2021 12:00:00 AM EDT 1.0 {tablet} active Lasix 40 M G eCW1 ([facility]) Spironolactone 50 MG Oral Tablet Spironolactone 50 MG 2020 12:00:00 AM EDT 1.0 {tablet} active Spironolact one 50 MG eCW1 ([facility]) Furosemide 40 MG Oral Tablet [Lasix] Lasix 40 MG Lasix 40 MG 01/03/2021 12:00:00 AM EDT 1.0 {tablet} active Lasix 40 M G eCW1 ([facility]) Spironolactone 50 MG Oral Tablet Spironolactone 50 MG 2020 12:00:00 AM EDT 1.0 {tablet} active Spironolact one 50 MG eCW1 ([facility]) Spironolactone 50 MG Oral Tablet Spironolactone 50 MG 2020 12:00:00 AM EDT 1.0 {tablet} active Spironolact one 50 MG eCW1 ([facility]) 50 mg 01/03/2021 12:00:00 AM EDT tablet 120 TAKE ONE TABLET BY MOUTH TWICE A DAY TAKE ONE TABLET BY MOUTH TWICE A DAY SOLD: 01/04/2021 [facility] Spironolactone 50 MG Oral Tablet Spironolactone 50 MG 2020 12:00:00 AM EDT 1.0 {tablet} active Spironolact one 50 MG eCW1 ([facility]) Furosemide 20 MG Oral Tablet [Lasix] Lasix 20 MG Lasix 20 MG 01/03/2021 12:00:00 AM EDT 1.0 {tablet} active Lasix 20 M G eCW1 ([facility]) Spironolactone 50 MG Oral Tablet Spironolactone 50 MG 2020 12:00:00 AM EDT 1.0 {tablet} active Spironolact one 50 MG eCW1 ([facility]) Furosemide 20 MG Oral Tablet [Lasix] Lasix 20 MG Lasix 20 MG 01/03/2021 12:00:00 AM EDT 1.0 {tablet} active Lasix 20 M G eCW1 ([facility]) Furosemide 40 MG Oral Tablet [Lasix] Lasix 40 MG Lasix 40 MG 01/03/2021 12:00:00 AM EDT 1.0 {tablet} active Lasix 40 M G eCW1 ([facility]) Furosemide 40 MG Oral Tablet [Lasix] Lasix 40 MG Lasix 40 MG 01/03/2021 12:00:00 AM EDT 1.0 {tablet} active Lasix 40 M G eCW1 ([facility]) Spironolactone 50 MG Oral Tablet Spironolactone 50 MG 2020 12:00:00 AM EDT 1.0 {tablet} active Spironolact one 50 MG eCW1 ([facility]) Spironolactone 50 MG Oral Tablet Spironolactone 50 MG 2020 12:00:00 AM EDT 1.0 {tablet} active Spironolact one 50 MG eCW1 ([facility]) Spironolactone 50 MG Oral Tablet Spironolactone 50 MG 2020 12:00:00 AM EDT 1.0 {tablet} active Spironolact one 50 MG eCW1 ([facility]) Furosemide 40 MG Oral Tablet [Lasix] Lasix 40 MG Lasix 40 MG 01/03/2021 12:00:00 AM EDT 1.0 {tablet} active Lasix 40 M G eCW1 ([facility]) Furosemide 40 MG Oral Tablet [Lasix] Lasix 40 MG Lasix 40 MG 01/03/2021 12:00:00 AM EDT 1.0 {tablet} active Lasix 40 M G eCW1 ([facility]) Furosemide 20 MG Oral Tablet [Lasix] Lasix 20 MG Lasix 20 MG 01/03/2021 12:00:00 AM EDT 1.0 {tablet} active Lasix 20 M G eCW1 ([facility]) Spironolactone 50 MG Oral Tablet Spironolactone 50 MG 2020 12:00:00 AM EDT 1.0 {tablet} active Spironolact one 50 MG eCW1 ([facility]) Furosemide 40 MG Oral Tablet [Lasix] Lasix 40 MG Lasix 40 MG 01/03/2021 12:00:00 AM EDT 1.0 {tablet} active Lasix 40 M G eCW1 ([facility]) Furosemide 20 MG Oral Tablet [Lasix] Lasix 20 MG Lasix 20 MG 01/03/2021 12:00:00 AM EDT 1.0 {tablet} active Lasix 20 M G eCW1 ([facility]) Spironolactone 50 MG Oral Tablet Spironolactone 50 MG 2020 12:00:00 AM EDT 1.0 {tablet} active Spironolact one 50 MG eCW1 ([facility]) Spironolactone 50 MG Oral Tablet Spironolactone 50 MG 2020 12:00:00 AM EDT 1.0 {tablet} active Spironolact one 50 MG eCW1 ([facility]) Furosemide 20 MG Oral Tablet [Lasix] Lasix 20 MG Lasix 20 MG 01/03/2021 12:00:00 AM EDT 1.0 {tablet} active Lasix 20 M G eCW1 ([facility]) Spironolactone 50 MG Oral Tablet Spironolactone 50 MG 2020 12:00:00 AM EDT 1.0 {tablet} active Spironolact one 50 MG eCW1 ([facility]) Spironolactone 50 MG Oral Tablet Spironolactone 50 MG 2020 12:00:00 AM EDT 1.0 {tablet} active Spironolact one 50 MG eCW1 ([facility]) Spironolactone 50 MG Oral Tablet Spironolactone 50 MG 2020 12:00:00 AM EDT 1.0 {tablet} active Spironolact one 50 MG eCW1 ([facility]) Spironolactone 50 MG Oral Tablet Spironolactone 50 MG 2020 12:00:00 AM EDT 1.0 {tablet} active Spironolact one 50 MG eCW1 ([facility]) Spironolactone 50 MG Oral Tablet Spironolactone 50 MG 2020 12:00:00 AM EDT 1.0 {tablet} active Spironolact one 50 MG eCW1 ([facility]) Spironolactone 50 MG Oral Tablet Spironolactone 50 MG 2020 12:00:00 AM EDT 1.0 {tablet} active Spironolact one 50 MG eCW1 ([facility]) Spironolactone 50 MG Oral Tablet Spironolactone 50 MG 2020 12:00:00 AM EDT 1.0 {tablet} active Spironolact one 50 MG eCW1 ([facility]) Furosemide 20 MG Oral Tablet [Lasix] Lasix 20 MG Lasix 20 MG 01/03/2021 12:00:00 AM EDT 1.0 {tablet} active Lasix 20 M G eCW1 ([facility]) Furosemide 40 MG Oral Tablet [Lasix] Lasix 40 MG Lasix 40 MG 01/03/2021 12:00:00 AM EDT 1.0 {tablet} active Lasix 40 M G eCW1 ([facility]) Furosemide 40 MG Oral Tablet [Lasix] Lasix 40 MG Lasix 40 MG 01/03/2021 12:00:00 AM EDT 1.0 {tablet} active Lasix 40 M G eCW1 ([facility]) Spironolactone 50 MG Oral Tablet Spironolactone 50 MG 2020 12:00:00 AM EDT 1.0 {tablet} active Spironolact one 50 MG eCW1 ([facility]) Furosemide 20 MG Oral Tablet [Lasix] Lasix 20 MG Lasix 20 MG 01/03/2021 12:00:00 AM EDT 1.0 {tablet} active Lasix 20 M G eCW1 ([facility]) Spironolactone 50 MG Oral Tablet Spironolactone 50 MG 2020 12:00:00 AM EDT 1.0 {tablet} active Spironolact one 50 MG eCW1 ([facility]) Spironolactone 50 MG Oral Tablet Spironolactone 50 MG 2020 12:00:00 AM EDT 1.0 {tablet} active Spironolact one 50 MG eCW1 ([facility]) Spironolactone 50 MG Oral Tablet Spironolactone 50 MG 2020 12:00:00 AM EDT 1.0 {tablet} active Spironolact one 50 MG eCW1 ([facility]) Furosemide 20 MG Oral Tablet [Lasix] Lasix 20 MG Lasix 20 MG 01/03/2021 12:00:00 AM EDT 1.0 {tablet} active Lasix 20 M G eCW1 ([facility]) Spironolactone 50 MG Oral Tablet Spironolactone 50 MG 2020 12:00:00 AM EDT 1.0 {tablet} active Spironolact one 50 MG eCW1 ([facility]) Spironolactone 50 MG Oral Tablet Spironolactone 50 MG 2020 12:00:00 AM EDT 1.0 {tablet} active Spironolact one 50 MG eCW1 ([facility]) Spironolactone 50 MG Oral Tablet Spironolactone 50 MG 2020 12:00:00 AM EDT 1.0 {tablet} active Spironolact one 50 MG eCW1 ([facility]) Furosemide 40 MG Oral Tablet [Lasix] Lasix 40 MG Lasix 40 MG 01/03/2021 12:00:00 AM EDT 1.0 {tablet} active Lasix 40 M G eCW1 ([facility]) Spironolactone 50 MG Oral Tablet Spironolactone 50 MG 2020 12:00:00 AM EDT 1.0 {tablet} active Spironolact one 50 MG eCW1 ([facility]) Furosemide 20 MG Oral Tablet [Lasix] Lasix 20 MG Lasix 20 MG 01/03/2021 12:00:00 AM EDT 1.0 {tablet} active Lasix 20 M G eCW1 ([facility]) Furosemide 20 MG Oral Tablet [Lasix] Lasix 20 MG Lasix 20 MG 01/03/2021 12:00:00 AM EDT 1.0 {tablet} active Lasix 20 M G eCW1 ([facility]) Spironolactone 50 MG Oral Tablet Spironolactone 50 MG 2020 12:00:00 AM EDT 1.0 {tablet} active Spironolact one 50 MG eCW1 ([facility]) Furosemide 20 MG Oral Tablet [Lasix] Lasix 20 MG Lasix 20 MG 01/03/2021 12:00:00 AM EDT 1.0 {tablet} active Lasix 20 M G eCW1 ([facility]) Spironolactone 50 MG Oral Tablet Spironolactone 50 MG 2020 12:00:00 AM EDT 1.0 {tablet} active Spironolact one 50 MG eCW1 ([facility]) Furosemide 20 MG Oral Tablet [Lasix] Lasix 20 MG Lasix 20 MG 01/03/2021 12:00:00 AM EDT 1.0 {tablet} active Lasix 20 M G eCW1 ([facility]) Spironolactone 50 MG Oral Tablet Spironolactone 50 MG 2020 12:00:00 AM EDT 1.0 {tablet} active Spironolact one 50 MG eCW1 ([facility]) Furosemide 40 MG Oral Tablet [Lasix] Lasix 40 MG Lasix 40 MG 01/03/2021 12:00:00 AM EDT 1.0 {tablet} active Lasix 40 M G eCW1 ([facility]) 20 mg 01/03/2021 12:00:00 AM EDT tablet 120 TAKE ONE TABLET BY MOUTH TWICE A DAY TAKE ONE TABLET BY MOUTH TWICE A DAY SOLD: 01/04/2021 [facility] Spironolactone 50 MG Oral Tablet Spironolactone 50 MG 2020 12:00:00 AM EDT 1.0 {tablet} active Spironolact one 50 MG eCW1 ([facility]) Furosemide 40 MG Oral Tablet [Lasix] Lasix 40 MG Lasix 40 MG 01/03/2021 12:00:00 AM EDT 1.0 {tablet} active Lasix 40 M G eCW1 ([facility]) Spironolactone 50 MG Oral Tablet Spironolactone 50 MG 2020 12:00:00 AM EDT 1.0 {tablet} active Spironolact one 50 MG eCW1 ([facility]) Furosemide 40 MG Oral Tablet [Lasix] Lasix 40 MG Lasix 40 MG 01/03/2021 12:00:00 AM EDT 1.0 {tablet} active Lasix 40 M G eCW1 ([facility]) Furosemide 40 MG Oral Tablet [Lasix] Lasix 40 MG Lasix 40 MG 01/03/2021 12:00:00 AM EDT 1.0 {tablet} active Lasix 40 M G eCW1 ([facility]) Furosemide 40 MG Oral Tablet [Lasix] Lasix 40 MG Lasix 40 MG 01/03/2021 12:00:00 AM EDT 1.0 {tablet} active Lasix 40 M G eCW1 ([facility]) Furosemide 40 MG Oral Tablet [Lasix] Lasix 40 MG Lasix 40 MG 01/03/2021 12:00:00 AM EDT 1.0 {tablet} active Lasix 40 M G eCW1 ([facility]) Furosemide 40 MG Oral Tablet [Lasix] Lasix 40 MG Lasix 40 MG 01/03/2021 12:00:00 AM EDT 1.0 {tablet} active Lasix 40 M G eCW1 ([facility]) Spironolactone 50 MG Oral Tablet Spironolactone 50 MG 2020 12:00:00 AM EDT 1.0 {tablet} active Spironolact one 50 MG eCW1 ([facility]) 50 mg 12/22/2020 12:00:00 AM EDT tablet 6 TAKE ONE TABLET BY MOUTH EVERY DAY NEEDED * MAXIMUM DAILY DOSE = 1 TAKE ONE TABLET BY MOUTH EVERY DAY NE EDED * MAXIMUM DAILY DOSE = 1 SOLD: 12/23/2020 [facility] tizanidine 4 MG Oral Tablet TIZANIDINE HCL 12/21/2020 12:00:00 AM EDT tablet 30 TAKE ONE TABLET BY MOUTH AT BEDTIME NEEDED FOR SPAS MS TAKE ONE TABLET BY MOUTH AT BEDTIME NEEDED FOR SPASMS SOLD: 12/22/2020 [facility] buspirone hydrochloride 10 MG Oral Tablet BUSPIRONE HCL 12/15/2020 12:00:00 AM EDT tablet 60 TAKE ONE TABLET BY MOUTH TWI CE A DAY TAKE ONE TABLET BY MOUTH TWICE A DAY SOLD: 12/18/2020 [facility] buspirone hydrochloride 10 MG Oral Tablet BUSPIRONE HCL 12/15/2020 12:00:00 AM EDT tablet 60 TAKE ONE TABLET BY MOUTH TWI CE A DAY TAKE ONE TABLET BY MOUTH TWICE A DAY SOLD: 01/15/2021 [facility] buspirone hydrochloride 10 MG Oral Tablet BUSPIRONE HCL 12/15/2020 12:00:00 AM EDT tablet 60 TAKE ONE TABLET BY MOUTH TWI CE A DAY TAKE ONE TABLET BY MOUTH TWICE A DAY SOLD: 02/16/2021 [facility] buspirone hydrochloride 10 MG Oral Tablet BUSPIRONE HCL 12/15/2020 12:00:00 AM EDT tablet 60 TAKE ONE TABLET BY MOUTH TWI CE A DAY TAKE ONE TABLET BY MOUTH TWICE A DAY SOLD: 03/19/2021 [facility] 50 mg 12/11/2020 12:00:00 AM EDT tablet 10 TAKE ONE TABLET BY MOUTH TWICE A DAY NEEDED * MAXIMUM DAILY DOSE = 2 TAKE ONE TABLET BY MOUTH TWICE A DAY NEEDED * MAXIMUM DAILY DOSE = 2 SOLD: 12/11/2020 [facility] 50 mg 12/08/2020 12:00:00 AM EDT tablet 30 TAKE ONE TABLET BY MOUTH EVERY DAY TAKE ONE TABLET BY MOUTH EVERY DAY SOLD: 12/09/2020 [facility] Furosemide 20 MG Oral Tablet Furosemide 12/08/2020 12:00:00 AM EDT ORAL completed MEDENT ([facility], ) 50 mg 12/08/2020 12:00:00 AM EDT tablet 30 TAKE ONE TABLET BY MOUTH EVERY DAY TAKE ONE TABLET BY MOUTH EVERY DAY SOLD: 03/09/2021 [facility] 20 mg 12/08/2020 12:00:00 AM EDT tablet 30 TAKE ONE TABLET BY MOUTH EVERY DAY TAKE ONE TABLET BY MOUTH EVERY DAY SOLD: 12/09/2020 [facility] 3 ML Insulin Glargine 100 UNT/ML Pen Injector [Basagla r] 100 unit/mL (3 mL) INSULIN GLARGINE,[email or web address] 12/08/2020 12:00:00 AM EDT insulin pen 45 INJECT 70 UNITS UNDER THE SKIN IN THE MORNING AND 90 UNITS IN THE EVENING DIRECTED INJECT 70 UNITS UNDER THE SKIN IN THE MO RNING AND 90 UNITS IN THE EVENING DIRECTED SOLD: 12/09/2020 [facility] 3 ML Insulin Glargine 100 UNT/ML Pen Injector [Basagla r] 100 unit/mL (3 mL) INSULIN GLARGINE,[email or web address] 12/08/2020 12:00:00 AM EDT insulin pen 45 INJECT 70 UNITS UNDER THE SKIN IN THE MORNING AND 90 UNITS IN THE EVENING DIRECTED INJECT 70 UNITS UNDER THE SKIN IN THE MO RNING AND 90 UNITS IN THE EVENING DIRECTED SOLD: 03/04/2021 [facility] 20 mg 12/08/2020 12:00:00 AM EDT tablet 30 TAKE ONE TABLET BY MOUTH EVERY DAY TAKE ONE TABLET BY MOUTH EVERY DAY SOLD: 03/09/2021 [facility] 50 mg 12/08/2020 12:00:00 AM EDT tablet 30 TAKE ONE TABLET BY MOUTH EVERY DAY TAKE ONE TABLET BY MOUTH EVERY DAY SOLD: 04/08/2021 [facility] 3 ML Insulin Glargine 100 UNT/ML Pen Injector [Basagla r] 100 unit/mL (3 mL) INSULIN GLARGINE,[email or web address] 12/08/2020 12:00:00 AM EDT insulin pen 45 INJECT 70 UNITS UNDER THE SKIN IN THE MORNING AND 90 UNITS IN THE EVENING DIRECTED INJECT 70 UNITS UNDER THE SKIN IN THE MO RNING AND 90 UNITS IN THE EVENING DIRECTED SOLD: 01/08/2021 [facility] 325 mg (65 mg iron) 12/08/2020 12:00:00 AM EDT tablet 30 TAKE ONE TABLET BY MOUTH EVERY DAY TAKE ONE TABLET BY MOUTH EVERY DAY SOLD: 01/08/2021 [facility] 3 ML Insulin Glargine 100 UNT/ML Pen Injector [Basagla r] 100 unit/mL (3 mL) INSULIN GLARGINE,[email or web address] 12/08/2020 12:00:00 AM EDT insulin pen 45 INJECT 70 UNITS UNDER THE SKIN IN THE MORNING AND 90 UNITS IN THE EVENING DIRECTED INJECT 70 UNITS UNDER THE SKIN IN THE MO RNING AND 90 UNITS IN THE EVENING DIRECTED SOLD: 02/05/2021 [facility] 325 mg (65 mg iron) 12/08/2020 12:00:00 AM EDT tablet 30 TAKE ONE TABLET BY MOUTH EVERY DAY TAKE ONE TABLET BY MOUTH EVERY DAY SOLD: 12/09/2020 [facility] 20 mg 12/08/2020 12:00:00 AM EDT tablet 30 TAKE ONE TABLET BY MOUTH EVERY DAY TAKE ONE TABLET BY MOUTH EVERY DAY SOLD: 04/08/2021 [facility] tramadol hydrochloride 50 MG Oral Tablet traMADol HCl 50 MG traMADol HCl 50 MG 12/07/2020 12:00:00 AM EDT 1.0 {tablet_as_needed} active traMADol HCl 50 MG eCW1 ([facility]) Spironolactone 50 MG Oral Tablet Spironolactone 50 MG 2020 12:00:00 AM EDT 1.0 {tablet} active Spironolact one 50 MG eCW1 ([facility]) tramadol hydrochloride 50 MG Oral Tablet traMADol HCl 50 MG traMADol HCl 50 MG 12/07/2020 12:00:00 AM EDT 1.0 {tablet_as_needed} active traMADol HCl 50 MG eCW1 ([facility]) tramadol hydrochloride 50 MG Oral Tablet traMADol HCl 50 MG traMADol HCl 50 MG 12/07/2020 12:00:00 AM EDT 1.0 {tablet_as_needed} active traMADol HCl 50 MG eCW1 ([facility]) Spironolactone 50 MG Oral Tablet Spironolactone 50 MG 2020 12:00:00 AM EDT 1.0 {tablet} active Spironolact one 50 MG eCW1 ([facility]) tramadol hydrochloride 50 MG Oral Tablet traMADol HCl 50 MG traMADol HCl 50 MG 12/07/2020 12:00:00 AM EDT 1.0 {tablet_as_needed} active traMADol HCl 50 MG eCW1 ([facility]) tramadol hydrochloride 50 MG Oral Tablet traMADol HCl 50 MG traMADol HCl 50 MG 12/07/2020 12:00:00 AM EDT 1.0 {tablet_as_needed} active traMADol HCl 50 MG eCW1 ([facility]) tramadol hydrochloride 50 MG Oral Tablet traMADol HCl 50 MG traMADol HCl 50 MG 12/07/2020 12:00:00 AM EDT 1.0 {tablet_as_needed} active traMADol HCl 50 MG eCW1 ([facility]) tramadol hydrochloride 50 MG Oral Tablet traMADol HCl 50 MG traMADol HCl 50 MG 12/07/2020 12:00:00 AM EDT 1.0 {tablet_as_needed} active traMADol HCl 50 MG eCW1 ([facility]) Spironolactone 50 MG Oral Tablet Spironolactone 50 MG 2020 12:00:00 AM EDT 1.0 {tablet} active Spironolact one 50 MG eCW1 ([facility]) tramadol hydrochloride 50 MG Oral Tablet traMADol HCl 50 MG traMADol HCl 50 MG 12/07/2020 12:00:00 AM EDT 1.0 {tablet_as_needed} active traMADol HCl 50 MG eCW1 ([facility]) Spironolactone 50 MG Oral Tablet Spironolactone 50 MG 2020 12:00:00 AM EDT 1.0 {tablet} active Spironolact one 50 MG eCW1 ([facility]) Spironolactone 50 MG Oral Tablet Spironolactone 50 MG 2020 12:00:00 AM EDT 1.0 {tablet} active Spironolact one 50 MG eCW1 ([facility]) Spironolactone 50 MG Oral Tablet Spironolactone 50 MG 2020 12:00:00 AM EDT 1.0 {tablet} suspended Spironol actone 50 MG eCW1 ([facility]) tramadol hydrochloride 50 MG Oral Tablet traMADol HCl 50 MG traMADol HCl 50 MG 12/07/2020 12:00:00 AM EDT 1.0 {tablet_as_needed} active traMADol HCl 50 MG eCW1 ([facility]) tramadol hydrochloride 50 MG Oral Tablet traMADol HCl 50 MG traMADol HCl 50 MG 12/07/2020 12:00:00 AM EDT 1.0 {tablet_as_needed} active traMADol HCl 50 MG eCW1 ([facility]) Spironolactone 50 MG Oral Tablet Spironolactone 50 MG 2020 12:00:00 AM EDT 1.0 {tablet} active Spironolact one 50 MG eCW1 ([facility]) Spironolactone 50 MG Oral Tablet Spironolactone 50 MG 2020 12:00:00 AM EDT 1.0 {tablet} suspended Spironol actone 50 MG eCW1 ([facility]) Spironolactone 50 MG Oral Tablet Spironolactone 50 MG 2020 12:00:00 AM EDT 1.0 {tablet} active Spironolact one 50 MG eCW1 ([facility]) tramadol hydrochloride 50 MG Oral Tablet traMADol HCl 50 MG traMADol HCl 50 MG 12/07/2020 12:00:00 AM EDT 1.0 {tablet_as_needed} active traMADol HCl 50 MG eCW1 ([facility]) tramadol hydrochloride 50 MG Oral Tablet traMADol HCl 50 MG traMADol HCl 50 MG 12/07/2020 12:00:00 AM EDT 1.0 {tablet_as_needed} active traMADol HCl 50 MG eCW1 ([facility]) tramadol hydrochloride 50 MG Oral Tablet traMADol HCl 50 MG traMADol HCl 50 MG 12/07/2020 12:00:00 AM EDT 1.0 {tablet_as_needed} active traMADol HCl 50 MG eCW1 ([facility]) Spironolactone 50 MG Oral Tablet Spironolactone 50 MG 2020 12:00:00 AM EDT 1.0 {tablet} suspended Spironol actone 50 MG eCW1 ([facility]) tramadol hydrochloride 50 MG Oral Tablet traMADol HCl 50 MG traMADol HCl 50 MG 12/07/2020 12:00:00 AM EDT 1.0 {tablet_as_needed} active traMADol HCl 50 MG eCW1 ([facility]) tramadol hydrochloride 50 MG Oral Tablet traMADol HCl 50 MG traMADol HCl 50 MG 12/07/2020 12:00:00 AM EDT 1.0 {tablet_as_needed} active traMADol HCl 50 MG eCW1 ([facility]) Spironolactone 50 MG Oral Tablet Spironolactone 50 MG 2020 12:00:00 AM EDT 1.0 {tablet} active Spironolact one 50 MG eCW1 ([facility]) Spironolactone 50 MG Oral Tablet Spironolactone 50 MG 2020 12:00:00 AM EDT 1.0 {tablet} active Spironolact one 50 MG eCW1 ([facility]) Spironolactone 50 MG Oral Tablet Spironolactone 50 MG 2020 12:00:00 AM EDT 1.0 {tablet} suspended Spironol actone 50 MG eCW1 ([facility]) Spironolactone 50 MG Oral Tablet Spironolactone 50 MG 2020 12:00:00 AM EDT 1.0 {tablet} active Spironolact one 50 MG eCW1 ([facility]) tramadol hydrochloride 50 MG Oral Tablet traMADol HCl 50 MG traMADol HCl 50 MG 12/07/2020 12:00:00 AM EDT 1.0 {tablet_as_needed} active traMADol HCl 50 MG eCW1 ([facility]) Spironolactone 50 MG Oral Tablet Spironolactone 50 MG 2020 12:00:00 AM EDT 1.0 {tablet} active Spironolact one 50 MG eCW1 ([facility]) tramadol hydrochloride 50 MG Oral Tablet traMADol HCl 50 MG traMADol HCl 50 MG 12/07/2020 12:00:00 AM EDT 1.0 {tablet_as_needed} active traMADol HCl 50 MG eCW1 ([facility]) Spironolactone 50 MG Oral Tablet Spironolactone 50 MG 2020 12:00:00 AM EDT 1.0 {tablet} active Spironolact one 50 MG eCW1 ([facility]) tramadol hydrochloride 50 MG Oral Tablet traMADol HCl 50 MG traMADol HCl 50 MG 12/07/2020 12:00:00 AM EDT 1.0 {tablet_as_needed} active traMADol HCl 50 MG eCW1 ([facility]) Spironolactone 50 MG Oral Tablet Spironolactone 50 MG 2020 12:00:00 AM EDT 1.0 {tablet} active Spironolact one 50 MG eCW1 ([facility]) Spironolactone 50 MG Oral Tablet Spironolactone 50 MG 2020 12:00:00 AM EDT 1.0 {tablet} active Spironolact one 50 MG eCW1 ([facility]) tramadol hydrochloride 50 MG Oral Tablet traMADol HCl 50 MG traMADol HCl 50 MG 12/07/2020 12:00:00 AM EDT 1.0 {tablet_as_needed} active traMADol HCl 50 MG eCW1 ([facility]) Spironolactone 50 MG Oral Tablet Spironolactone 50 MG 2020 12:00:00 AM EDT 1.0 {tablet} suspended Spironol actone 50 MG eCW1 ([facility]) tramadol hydrochloride 50 MG Oral Tablet traMADol HCl 50 MG traMADol HCl 50 MG 12/07/2020 12:00:00 AM EDT 1.0 {tablet_as_needed} active traMADol HCl 50 MG eCW1 ([facility]) Spironolactone 50 MG Oral Tablet Spironolactone 50 MG 2020 12:00:00 AM EDT 1.0 {tablet} active Spironolact one 50 MG eCW1 ([facility]) tramadol hydrochloride 50 MG Oral Tablet traMADol HCl 50 MG traMADol HCl 50 MG 12/07/2020 12:00:00 AM EDT 1.0 {tablet_as_needed} active traMADol HCl 50 MG eCW1 ([facility]) Spironolactone 50 MG Oral Tablet Spironolactone 50 MG 2020 12:00:00 AM EDT 1.0 {tablet} suspended Spironol actone 50 MG eCW1 ([facility]) Spironolactone 50 MG Oral Tablet Spironolactone 50 MG 2020 12:00:00 AM EDT 1.0 {tablet} suspended Spironol actone 50 MG eCW1 ([facility]) Spironolactone 50 MG Oral Tablet Spironolactone 50 MG 2020 12:00:00 AM EDT 1.0 {tablet} suspended Spironol actone 50 MG eCW1 ([facility]) Spironolactone 50 MG Oral Tablet Spironolactone 50 MG 2020 12:00:00 AM EDT 1.0 {tablet} suspended Spironol actone 50 MG eCW1 ([facility]) Spironolactone 50 MG Oral Tablet Spironolactone 50 MG 2020 12:00:00 AM EDT 1.0 {tablet} suspended Spironol actone 50 MG eCW1 ([facility]) Spironolactone 50 MG Oral Tablet Spironolactone 50 MG 2020 12:00:00 AM EDT 1.0 {tablet} active Spironolact one 50 MG eCW1 ([facility]) tramadol hydrochloride 50 MG Oral Tablet traMADol HCl 50 MG traMADol HCl 50 MG 12/07/2020 12:00:00 AM EDT 1.0 {tablet_as_needed} active traMADol HCl 50 MG eCW1 ([facility]) Spironolactone 50 MG Oral Tablet Spironolactone 50 MG 2020 12:00:00 AM EDT 1.0 {tablet} suspended Spironol actone 50 MG eCW1 ([facility]) Spironolactone 50 MG Oral Tablet Spironolactone 50 MG 2020 12:00:00 AM EDT 1.0 {tablet} suspended Spironol actone 50 MG eCW1 ([facility]) Spironolactone 50 MG Oral Tablet Spironolactone 50 MG 2020 12:00:00 AM EDT 1.0 {tablet} active Spironolact one 50 MG eCW1 ([facility]) 50 mg 12/07/2020 12:00:00 AM EDT tablet 10 TAKE ONE TABLET BY MOUTH TWICE A DAY NEEDED MAXIMUM DAILY DOSE = 2 TAKE ONE TABLET BY MOUTH TWICE A DAY NEEDED MAXIMUM DAILY DOSE = 2 SOLD: 12/07/2020 [facility] Spironolactone 50 MG Oral Tablet Spironolactone 50 MG 2020 12:00:00 AM EDT 1.0 {tablet} active Spironolact one 50 MG eCW1 ([facility]) tramadol hydrochloride 50 MG Oral Tablet traMADol HCl 50 MG traMADol HCl 50 MG 12/07/2020 12:00:00 AM EDT 1.0 {tablet_as_needed} active traMADol HCl 50 MG eCW1 ([facility]) tramadol hydrochloride 50 MG Oral Tablet traMADol HCl 50 MG traMADol HCl 50 MG 12/07/2020 12:00:00 AM EDT 1.0 {tablet_as_needed} active traMADol HCl 50 MG eCW1 ([facility]) Spironolactone 50 MG Oral Tablet Spironolactone 50 MG 2020 12:00:00 AM EDT 1.0 {tablet} active Spironolact one 50 MG eCW1 ([facility]) Spironolactone 50 MG Oral Tablet Spironolactone 50 MG 2020 12:00:00 AM EDT 1.0 {tablet} active Spironolact one 50 MG eCW1 ([facility]) Spironolactone 50 MG Oral Tablet Spironolactone 50 MG 2020 12:00:00 AM EDT 1.0 {tablet} active Spironolact one 50 MG eCW1 ([facility]) Spironolactone 50 MG Oral Tablet Spironolactone 50 MG 2020 12:00:00 AM EDT 1.0 {tablet} active Spironolact one 50 MG eCW1 ([facility]) tramadol hydrochloride 50 MG Oral Tablet traMADol HCl 50 MG traMADol HCl 50 MG 12/07/2020 12:00:00 AM EDT 1.0 {tablet_as_needed} active traMADol HCl 50 MG eCW1 ([facility]) tramadol hydrochloride 50 MG Oral Tablet traMADol HCl 50 MG traMADol HCl 50 MG 12/07/2020 12:00:00 AM EDT 1.0 {tablet_as_needed} active traMADol HCl 50 MG eCW1 ([facility]) Spironolactone 50 MG Oral Tablet Spironolactone 50 MG 2020 12:00:00 AM EDT 1.0 {tablet} active Spironolact one 50 MG eCW1 ([facility]) Spironolactone 50 MG Oral Tablet Spironolactone 50 MG 2020 12:00:00 AM EDT 1.0 {tablet} suspended Spironol actone 50 MG eCW1 ([facility]) tramadol hydrochloride 50 MG Oral Tablet traMADol HCl 50 MG traMADol HCl 50 MG 12/07/2020 12:00:00 AM EDT 1.0 {tablet_as_needed} active traMADol HCl 50 MG eCW1 ([facility]) Spironolactone 50 MG Oral Tablet Spironolactone 50 MG 2020 12:00:00 AM EDT 1.0 {tablet} suspended Spironol actone 50 MG eCW1 ([facility]) Spironolactone 50 MG Oral Tablet Spironolactone 50 MG 2020 12:00:00 AM EDT 1.0 {tablet} suspended Spironol actone 50 MG eCW1 ([facility]) Spironolactone 50 MG Oral Tablet Spironolactone 50 MG 2020 12:00:00 AM EDT 1.0 {tablet} suspended Spironol actone 50 MG eCW1 ([facility]) Spironolactone 50 MG Oral Tablet Spironolactone 50 MG 2020 12:00:00 AM EDT 1.0 {tablet} suspended Spironol actone 50 MG eCW1 ([facility]) Spironolactone 50 MG Oral Tablet Spironolactone 50 MG 2020 12:00:00 AM EDT 1.0 {tablet} active Spironolact one 50 MG eCW1 ([facility]) Spironolactone 50 MG Oral Tablet Spironolactone 50 MG 2020 12:00:00 AM EDT 1.0 {tablet} active Spironolact one 50 MG eCW1 ([facility]) Spironolactone 50 MG Oral Tablet Spironolactone 50 MG 2020 12:00:00 AM EDT 1.0 {tablet} suspended Spironol actone 50 MG eCW1 ([facility]) tramadol hydrochloride 50 MG Oral Tablet traMADol HCl 50 MG traMADol HCl 50 MG 12/01/2020 12:00:00 AM EDT 2.0 {tablets_as_needed} suspended traMADol HCl 50 MG eCW1 ([facility]) tramadol hydrochloride 50 MG Oral Tablet traMADol HCl 50 MG traMADol HCl 50 MG 12/01/2020 12:00:00 AM EDT 1.0 {tablet_as_needed} active traMADol HCl 50 MG eCW1 ([facility]) tramadol hydrochloride 50 MG Oral Tablet traMADol HCl 50 MG traMADol HCl 50 MG 12/01/2020 12:00:00 AM EDT 1.0 {tablet_as_needed} active traMADol HCl 50 MG eCW1 ([facility]) tramadol hydrochloride 50 MG Oral Tablet traMADol HCl 50 MG traMADol HCl 50 MG 12/01/2020 12:00:00 AM EDT 2.0 {tablets_as_needed} suspended traMADol HCl 50 MG eCW1 ([facility]) tramadol hydrochloride 50 MG Oral Tablet traMADol HCl 50 MG traMADol HCl 50 MG 12/01/2020 12:00:00 AM EDT 2.0 {tablets_as_needed} suspended traMADol HCl 50 MG eCW1 ([facility]) tramadol hydrochloride 50 MG Oral Tablet traMADol HCl 50 MG traMADol HCl 50 MG 12/01/2020 12:00:00 AM EDT 1.0 {tablet_as_needed} active traMADol HCl 50 MG eCW1 ([facility]) tramadol hydrochloride 50 MG Oral Tablet traMADol HCl 50 MG traMADol HCl 50 MG 12/01/2020 12:00:00 AM EDT 1.0 {tablet_as_needed} active traMADol HCl 50 MG eCW1 ([facility]) tramadol hydrochloride 50 MG Oral Tablet traMADol HCl 50 MG traMADol HCl 50 MG 12/01/2020 12:00:00 AM EDT 1.0 {tablet_as_needed} active traMADol HCl 50 MG eCW1 ([facility]) tramadol hydrochloride 50 MG Oral Tablet traMADol HCl 50 MG traMADol HCl 50 MG 12/01/2020 12:00:00 AM EDT 2.0 {tablets_as_needed} suspended traMADol HCl 50 MG eCW1 ([facility]) tramadol hydrochloride 50 MG Oral Tablet traMADol HCl 50 MG traMADol HCl 50 MG 12/01/2020 12:00:00 AM EDT 1.0 {tablet_as_needed} active traMADol HCl 50 MG eCW1 ([facility]) tramadol hydrochloride 50 MG Oral Tablet traMADol HCl 50 MG traMADol HCl 50 MG 12/01/2020 12:00:00 AM EDT 1.0 {tablet_as_needed} active traMADol HCl 50 MG eCW1 ([facility]) tramadol hydrochloride 50 MG Oral Tablet traMADol HCl 50 MG traMADol HCl 50 MG 12/01/2020 12:00:00 AM EDT 1.0 {tablet_as_needed} active traMADol HCl 50 MG eCW1 ([facility]) tramadol hydrochloride 50 MG Oral Tablet traMADol HCl 50 MG traMADol HCl 50 MG 12/01/2020 12:00:00 AM EDT 1.0 {tablet_as_needed} active traMADol HCl 50 MG eCW1 ([facility]) tramadol hydrochloride 50 MG Oral Tablet traMADol HCl 50 MG traMADol HCl 50 MG 12/01/2020 12:00:00 AM EDT 1.0 {tablet_as_needed} active traMADol HCl 50 MG eCW1 ([facility]) tramadol hydrochloride 50 MG Oral Tablet traMADol HCl 50 MG traMADol HCl 50 MG 12/01/2020 12:00:00 AM EDT 2.0 {tablets_as_needed} active traMADol HCl 50 MG eCW1 ([facility]) tramadol hydrochloride 50 MG Oral Tablet traMADol HCl 50 MG traMADol HCl 50 MG 12/01/2020 12:00:00 AM EDT 2.0 {tablets_as_needed} active traMADol HCl 50 MG eCW1 ([facility]) tramadol hydrochloride 50 MG Oral Tablet traMADol HCl 50 MG traMADol HCl 50 MG 12/01/2020 12:00:00 AM EDT 2.0 {tablets_as_needed} suspended traMADol HCl 50 MG eCW1 ([facility]) tramadol hydrochloride 50 MG Oral Tablet traMADol HCl 50 MG traMADol HCl 50 MG 12/01/2020 12:00:00 AM EDT 1.0 {tablet_as_needed} active traMADol HCl 50 MG eCW1 ([facility]) tramadol hydrochloride 50 MG Oral Tablet traMADol HCl 50 MG traMADol HCl 50 MG 12/01/2020 12:00:00 AM EDT 1.0 {tablet_as_needed} active traMADol HCl 50 MG eCW1 ([facility]) tramadol hydrochloride 50 MG Oral Tablet traMADol HCl 50 MG traMADol HCl 50 MG 12/01/2020 12:00:00 AM EDT 1.0 {tablet_as_needed} active traMADol HCl 50 MG eCW1 ([facility]) tramadol hydrochloride 50 MG Oral Tablet traMADol HCl 50 MG traMADol HCl 50 MG 12/01/2020 12:00:00 AM EDT 1.0 {tablet_as_needed} active traMADol HCl 50 MG eCW1 ([facility]) tramadol hydrochloride 50 MG Oral Tablet traMADol HCl 50 MG traMADol HCl 50 MG 12/01/2020 12:00:00 AM EDT 2.0 {tablets_as_needed} suspended traMADol HCl 50 MG eCW1 ([facility]) tramadol hydrochloride 50 MG Oral Tablet traMADol HCl 50 MG traMADol HCl 50 MG 12/01/2020 12:00:00 AM EDT 2.0 {tablets_as_needed} suspended traMADol HCl 50 MG eCW1 ([facility]) tramadol hydrochloride 50 MG Oral Tablet traMADol HCl 50 MG traMADol HCl 50 MG 12/01/2020 12:00:00 AM EDT 1.0 {tablet_as_needed} active traMADol HCl 50 MG eCW1 ([facility]) tramadol hydrochloride 50 MG Oral Tablet traMADol HCl 50 MG traMADol HCl 50 MG 12/01/2020 12:00:00 AM EDT 2.0 {tablets_as_needed} suspended traMADol HCl 50 MG eCW1 ([facility]) tramadol hydrochloride 50 MG Oral Tablet traMADol HCl 50 MG traMADol HCl 50 MG 12/01/2020 12:00:00 AM EDT 1.0 {tablet_as_needed} active traMADol HCl 50 MG eCW1 ([facility]) tramadol hydrochloride 50 MG Oral Tablet traMADol HCl 50 MG traMADol HCl 50 MG 12/01/2020 12:00:00 AM EDT 2.0 {tablets_as_needed} suspended traMADol HCl 50 MG eCW1 ([facility]) tramadol hydrochloride 50 MG Oral Tablet traMADol HCl 50 MG traMADol HCl 50 MG 12/01/2020 12:00:00 AM EDT 2.0 {tablets_as_needed} suspended traMADol HCl 50 MG eCW1 ([facility]) tramadol hydrochloride 50 MG Oral Tablet traMADol HCl 50 MG traMADol HCl 50 MG 12/01/2020 12:00:00 AM EDT 1.0 {tablet_as_needed} active traMADol HCl 50 MG eCW1 ([facility]) tramadol hydrochloride 50 MG Oral Tablet traMADol HCl 50 MG traMADol HCl 50 MG 12/01/2020 12:00:00 AM EDT 2.0 {tablets_as_needed} suspended traMADol HCl 50 MG eCW1 ([facility]) tramadol hydrochloride 50 MG Oral Tablet traMADol HCl 50 MG traMADol HCl 50 MG 12/01/2020 12:00:00 AM EDT 1.0 {tablet_as_needed} active traMADol HCl 50 MG eCW1 ([facility]) tramadol hydrochloride 50 MG Oral Tablet traMADol HCl 50 MG traMADol HCl 50 MG 12/01/2020 12:00:00 AM EDT 2.0 {tablets_as_needed} suspended traMADol HCl 50 MG eCW1 ([facility]) tramadol hydrochloride 50 MG Oral Tablet traMADol HCl 50 MG traMADol HCl 50 MG 12/01/2020 12:00:00 AM EDT 1.0 {tablet_as_needed} active traMADol HCl 50 MG eCW1 ([facility]) tramadol hydrochloride 50 MG Oral Tablet traMADol HCl 50 MG traMADol HCl 50 MG 12/01/2020 12:00:00 AM EDT 2.0 {tablets_as_needed} suspended traMADol HCl 50 MG eCW1 ([facility]) tramadol hydrochloride 50 MG Oral Tablet traMADol HCl 50 MG traMADol HCl 50 MG 12/01/2020 12:00:00 AM EDT 1.0 {tablet_as_needed} active traMADol HCl 50 MG eCW1 ([facility]) tramadol hydrochloride 50 MG Oral Tablet traMADol HCl 50 MG traMADol HCl 50 MG 12/01/2020 12:00:00 AM EDT 2.0 {tablets_as_needed} suspended traMADol HCl 50 MG eCW1 ([facility]) tramadol hydrochloride 50 MG Oral Tablet traMADol HCl 50 MG traMADol HCl 50 MG 12/01/2020 12:00:00 AM EDT 1.0 {tablet_as_needed} active traMADol HCl 50 MG eCW1 ([facility]) tramadol hydrochloride 50 MG Oral Tablet traMADol HCl 50 MG traMADol HCl 50 MG 12/01/2020 12:00:00 AM EDT 2.0 {tablets_as_needed} suspended traMADol HCl 50 MG eCW1 ([facility]) tramadol hydrochloride 50 MG Oral Tablet traMADol HCl 50 MG traMADol HCl 50 MG 12/01/2020 12:00:00 AM EDT 1.0 {tablet_as_needed} active traMADol HCl 50 MG eCW1 ([facility]) tramadol hydrochloride 50 MG Oral Tablet traMADol HCl 50 MG traMADol HCl 50 MG 12/01/2020 12:00:00 AM EDT 2.0 {tablets_as_needed} suspended traMADol HCl 50 MG eCW1 ([facility]) tramadol hydrochloride 50 MG Oral Tablet traMADol HCl 50 MG traMADol HCl 50 MG 12/01/2020 12:00:00 AM EDT 2.0 {tablets_as_needed} active traMADol HCl 50 MG eCW1 ([facility]) tramadol hydrochloride 50 MG Oral Tablet traMADol HCl 50 MG traMADol HCl 50 MG 12/01/2020 12:00:00 AM EDT 1.0 {tablet_as_needed} active traMADol HCl 50 MG eCW1 ([facility]) tramadol hydrochloride 50 MG Oral Tablet traMADol HCl 50 MG traMADol HCl 50 MG 12/01/2020 12:00:00 AM EDT 2.0 {tablets_as_needed} suspended traMADol HCl 50 MG eCW1 ([facility]) tramadol hydrochloride 50 MG Oral Tablet traMADol HCl 50 MG traMADol HCl 50 MG 12/01/2020 12:00:00 AM EDT 2.0 {tablets_as_needed} suspended traMADol HCl 50 MG eCW1 ([facility]) tramadol hydrochloride 50 MG Oral Tablet traMADol HCl 50 MG traMADol HCl 50 MG 12/01/2020 12:00:00 AM EDT 1.0 {tablet_as_needed} active traMADol HCl 50 MG eCW1 ([facility]) tramadol hydrochloride 50 MG Oral Tablet traMADol HCl 50 MG traMADol HCl 50 MG 12/01/2020 12:00:00 AM EDT 1.0 {tablet_as_needed} active traMADol HCl 50 MG eCW1 ([facility]) tizanidine 4 MG Oral Tablet TIZANIDINE HCL 11/25/2020 12:00:00 AM EDT tablet 30 TAKE ONE TABLET BY MOUTH AT BEDTIME NEEDED FOR SPAS MS TAKE ONE TABLET BY MOUTH AT BEDTIME NEEDED FOR SPASMS SOLD: 11/26/2020 [facility] 25 mg 11/22/2020 12:00:00 AM EDT capsule 30 TAKE ONE CAPSULE BY MOUTH AT BEDTIME TAKE ONE CAPSULE BY MOUTH AT BEDTIME SOLD: 12/29/2020 [facility] 25 mg 11/22/2020 12:00:00 AM EDT capsule 30 TAKE ONE CAPSULE BY MOUTH AT BEDTIME TAKE ONE CAPSULE BY MOUTH AT BEDTIME SOLD: 11/26/2020 [facility] 25 mg 11/22/2020 12:00:00 AM EDT capsule 30 TAKE ONE CAPSULE BY MOUTH AT BEDTIME TAKE ONE CAPSULE BY MOUTH AT BEDTIME SOLD: 01/29/2021 [facility] 20 mg 11/20/2020 12:00:00 AM EDT tablet 15 TAKE ONE-HALF TABLET BY MOUTH EVERY DAY TAKE ONE-HALF TABLET BY MOUTH EVERY DAY SOLD: 11/20/2020 [facility] 25 mg 11/20/2020 12:00:00 AM EDT tablet 30 TAKE ONE TABLET BY MOUTH EVERY DAY TAKE ONE TABLET BY MOUTH EVERY DAY SOLD: 11/20/2020 [facility] pioglitazone 30 MG Oral Tablet PIOGLITAZONE HCL 11/10/2020 12:00 :00 AM EDT tablet 30 TAKE ONE TABLET BY MOUTH EVERY D AY TAKE ONE TABLET BY MOUTH EVERY DAY SOLD: 11/13/2020 [facility] 100 mg 11/10/2020 12:00:00 AM EDT capsule 30 TAKE ONE CAPSULE BY MOUTH EVERY DAY NEEDED TAKE ONE CAPSULE BY MOUTH EVERY DAY NEEDED SOLD: 11/13/2020 [facility] 325 mg (65 mg iron) 11/10/2020 12:00:00 AM EDT tablet 30 TAKE ONE TABLET BY MOUTH EVERY DAY TAKE ONE TABLET BY MOUTH EVERY DAY SOLD: 11/13/2020 [facility] tizanidine 4 MG Oral Tablet TIZANIDINE HCL 10/30/2020 12:00:00 AM EDT tablet 30 TAKE ONE TABLET BY MOUTH AT BEDTIME NEEDED FOR SPAS MS TAKE ONE TABLET BY MOUTH AT BEDTIME NEEDED FOR SPASMS SOLD: 10/30/2020 [facility] 400 mg/5 mL 10/15/2020 12:00:00 AM EDT suspension 473 TAKE 7 TEASPOONFULS (45 ML) BY MOUTH ABOUT 1-2 DAYS BEFORE COLONOSCOPY PREP DIRECTED TAKE 7 TEASPOONFULS (45 ML) BY MOUTH ABOUT 1-2 DAYS BEFORE COLONOSCOPY PREP DIRECTED SOLD: 10/16/2020 [facility] Magnesium Hydroxide 80 MG/ML Oral Suspension Milk Of Magnesi a 10/14/2020 12:00:00 AM EDT ORAL completed MEDENT ([facility]) Sutab Sutab 10/14/2020 12:00:00 AM EDT completed MEDENT ([facility], ) 1.479-0.188 gram 10/14/2020 12:00:00 AM EDT tablet 24 USE DIRECTED PER OFFICE'S COLON PREP INSTRUCTIONS USE DIRECTED PER OFFICE'S COLON PREP INSTRUCTIONS SOLD: 10/14/2020 [facility] 81 mg 10/11/2020 12:00:00 AM EDT tablet,chewable 30 CHEW ONE TABLET BY MOUTH EVERY DAY CHEW ONE TABLET BY MOUTH EVERY DAY SOLD: 10/14/2020 [facility] tizanidine 4 MG Oral Tablet TIZANIDINE HCL 10/04/2020 12:00:00 AM EDT tablet 30 TAKE ONE TABLET BY MOUTH AT BEDTIME NEEDED FOR SPAS MS TAKE ONE TABLET BY MOUTH AT BEDTIME NEEDED FOR SPASMS SOLD: 10/04/2020 [facility] cefdinir 300 MG Oral Capsule Cefdinir 09/29/2020 12:00:00 AM EDT ORAL active MEDENT ([facility]) 300 mg 09/29/2020 12:00:00 AM EDT capsule 20 TAKE ONE CAPSULE BY MOUTH TWO TIMES A DAY FOR 10 DAYS TAKE ONE CAPSULE BY MOUTH TWO TIMES A DAY FOR 10 DAYS SOLD: 09/29/2020 [facility] 10 mg 09/25/2020 12:00:00 AM EDT tablet 60 TAKE ONE TABLET BY MOUTH TWICE A DAY BEFORE MEALS TAKE ONE TABLET BY MOUTH TWICE A DAY BEFORE MEALS SOLD : 09/29/2020 [facility] tizanidine 4 MG Oral Tablet TIZANIDINE HCL 09/09/2020 12:00:00 AM EDT tablet 30 TAKE ONE TABLET BY MOUTH AT BEDTIME NEEDED FOR SPAS MS TAKE ONE TABLET BY MOUTH AT BEDTIME NEEDED FOR SPASMS SOLD: 09/10/2020 [facility] pioglitazone 30 MG Oral Tablet PIOGLITAZONE HCL 09/08/2020 12:00 :00 AM EDT tablet 30 TAKE ONE TABLET BY MOUTH EVERY D AY TAKE ONE TABLET BY MOUTH EVERY DAY SOLD: 09/10/2020 [facility] pioglitazone 30 MG Oral Tablet PIOGLITAZONE HCL 09/08/2020 12:00 :00 AM EDT tablet 30 TAKE ONE TABLET BY MOUTH EVERY D AY TAKE ONE TABLET BY MOUTH EVERY DAY SOLD: 10/14/2020 [facility] 40 mg 08/25/2020 12:00:00 AM EST capsule,delayed release (DR/EC) 60 TAKE ONE CAPSULE BY MOUTH TWICE A DAY TAKE ONE CAPSULE BY MOUTH TWICE A DAY SOLD: 08/28/2020 [facility] 40 mg 08/25/2020 12:00:00 AM EST capsule,delayed release (DR/EC) 60 TAKE ONE CAPSULE BY MOUTH TWICE A DAY TAKE ONE CAPSULE BY MOUTH TWICE A DAY SOLD: 11/26/2020 [facility] 40 mg 08/25/2020 12:00:00 AM EST capsule,delayed release (DR/EC) 60 TAKE ONE CAPSULE BY MOUTH TWICE A DAY TAKE ONE CAPSULE BY MOUTH TWICE A DAY SOLD: 09/29/2020 [facility] 40 mg 08/25/2020 12:00:00 AM EST capsule,delayed release (DR/EC) 60 TAKE ONE CAPSULE BY MOUTH TWICE A DAY TAKE ONE CAPSULE BY MOUTH TWICE A DAY SOLD: 12/29/2020 [facility] 40 mg 08/25/2020 12:00:00 AM EST capsule,delayed release (DR/EC) 60 TAKE ONE CAPSULE BY MOUTH TWICE A DAY TAKE ONE CAPSULE BY MOUTH TWICE A DAY SOLD: 10/28/2020 [facility] tizanidine 4 MG Oral Tablet TIZANIDINE HCL 08/13/2020 12:00:00 AM EST tablet 30 TAKE ONE TABLET BY MOUTH AT BEDTIME NEEDED FOR SPAS MS TAKE ONE TABLET BY MOUTH AT BEDTIME NEEDED FOR SPASMS SOLD: 08/13/2020 [facility] 100 mg 08/12/2020 12:00:00 AM EST capsule 30 TAKE ONE CAPSULE BY MOUTH EVERY DAY NEEDED TAKE ONE CAPSULE BY MOUTH EVERY DAY NEEDED SOLD: 10/14/2020 [facility] 100 mg 08/12/2020 12:00:00 AM EST capsule 30 TAKE ONE CAPSULE BY MOUTH EVERY DAY NEEDED TAKE ONE CAPSULE BY MOUTH EVERY DAY NEEDED SOLD: 08/13/2020 [facility] 100 mg 08/12/2020 12:00:00 AM EST capsule 30 TAKE ONE CAPSULE BY MOUTH EVERY DAY NEEDED TAKE ONE CAPSULE BY MOUTH EVERY DAY NEEDED SOLD: 09/13/2020 [facility] 325 mg (65 mg iron) 08/12/2020 12:00:00 AM EST tablet 30 TAKE ONE TABLET BY MOUTH EVERY DAY TAKE ONE TABLET BY MOUTH EVERY DAY SOLD: 09/13/2020 [facility] 325 mg (65 mg iron) 08/12/2020 12:00:00 AM EST tablet 30 TAKE ONE TABLET BY MOUTH EVERY DAY TAKE ONE TABLET BY MOUTH EVERY DAY SOLD: 08/13/2020 [facility] 325 mg (65 mg iron) 08/12/2020 12:00:00 AM EST tablet 30 TAKE ONE TABLET BY MOUTH EVERY DAY TAKE ONE TABLET BY MOUTH EVERY DAY SOLD: 10/14/2020 [facility] 500 mg 08/06/2020 12:00:00 AM EST capsule 21 TAKE ONE CAPSULE BY MOUTH EVERY 8 HOURS UNTIL GONE TAKE ONE CAPSULE BY MOUTH EVERY 8 HOURS UNTIL GONE J[facility] 5-325 mg 08/06/2020 12:00:00 AM EST tablet 20 TAKE ONE TABLET BY MOUTH EVERY 6 HOURS NEEDED FOR PAIN MAXIMUM DAILY DOSE = 4 TAKE ONE TABLET BY MOUTH EVERY 6 HOURS NEEDED FOR PAIN MAXIMUM DAILY DOSE = 4 SOLD: 08/06/2020 [facility] 800 mg 08/06/2020 12:00:00 AM EST tablet 20 TAKE ONE TABLET BY MOUTH EVERY 8 HOURS TAKE ONE TABLET BY MOUTH EVERY 8 HOURS SOLD: 08/06/2020 [facility] 25 mg 07/24/2020 12:00:00 AM EST capsule 30 TAKE ONE CAPSULE BY MOUTH AT BEDTIME TAKE ONE CAPSULE BY MOUTH AT BEDTIME SOLD: 07/25/2020 [facility] 10 mg 07/24/2020 12:00:00 AM EST tablet 60 TAKE ONE TABLET BY MOUTH TWICE A DAY BEFORE MEALS TAKE ONE TABLET BY MOUTH TWICE A DAY BEFORE MEALS SOLD : 07/25/2020 [facility] 25 mg 07/24/2020 12:00:00 AM EST capsule 30 TAKE ONE CAPSULE BY MOUTH AT BEDTIME TAKE ONE CAPSULE BY MOUTH AT BEDTIME SOLD: 10/23/2020 [facility] 10 mg 07/24/2020 12:00:00 AM EST tablet 60 TAKE ONE TABLET BY MOUTH TWICE A DAY BEFORE MEALS TAKE ONE TABLET BY MOUTH TWICE A DAY BEFORE MEALS SOLD : 08/28/2020 [facility] 25 mg 07/24/2020 12:00:00 AM EST capsule 30 TAKE ONE CAPSULE BY MOUTH AT BEDTIME TAKE ONE CAPSULE BY MOUTH AT BEDTIME SOLD: 09/29/2020 [facility] 25 mg 07/24/2020 12:00:00 AM EST capsule 30 TAKE ONE CAPSULE BY MOUTH AT BEDTIME TAKE ONE CAPSULE BY MOUTH AT BEDTIME SOLD: 08/28/2020 [facility] tizanidine 4 MG Oral Tablet TIZANIDINE HCL 07/16/2020 12:00:00 AM EST tablet 30 TAKE ONE TABLET BY MOUTH AT BEDTIME NEEDED FOR SPAS MS TAKE ONE TABLET BY MOUTH AT BEDTIME NEEDED FOR SPASMS SOLD: 07/17/2020 [facility] Nortriptyline 25 MG Oral Capsule Nortriptyline HCl 25 MG Nortriptyline HCl 25 MG 07/15/2020 12:00:00 AM EST 1.0 {capsule} acti ve Nortriptyline HCl 25 MG eCW1 ([facility]) Metoclopramide 10 MG Oral Tablet Metoclopramide HCl 10 MG Metoclopramide HCl 10 MG 07/15/2020 12:00:00 AM EST 1.0 {tablet_before_meals} active Metoclopramide HCl 10 MG eCW1 ([facility]) Metoclopramide 10 MG Oral Tablet Metoclopramide HCl 10 MG Metoclopramide HCl 10 MG 07/15/2020 12:00:00 AM EST 1.0 {tablet_before_meals} active Metoclopramide HCl 10 MG eCW1 ([facility]) Nortriptyline 25 MG Oral Capsule Nortriptyline HCl 25 MG Nortriptyline HCl 25 MG 07/15/2020 12:00:00 AM EST 1.0 {capsule} acti ve Nortriptyline HCl 25 MG eCW1 ([facility]) Metoclopramide 10 MG Oral Tablet Metoclopramide HCl 10 MG Metoclopramide HCl 10 MG 07/15/2020 12:00:00 AM EST 1.0 {tablet_before_meals} active Metoclopramide HCl 10 MG eCW1 ([facility]) Nortriptyline 25 MG Oral Capsule Nortriptyline HCl 25 MG Nortriptyline HCl 25 MG 07/15/2020 12:00:00 AM EST 1.0 {capsule} acti ve Nortriptyline HCl 25 MG eCW1 ([facility]) Metoclopramide 10 MG Oral Tablet Metoclopramide HCl 10 MG Metoclopramide HCl 10 MG 07/15/2020 12:00:00 AM EST 1.0 {tablet_before_meals} active Metoclopramide HCl 10 MG eCW1 ([facility]) Metoclopramide 10 MG Oral Tablet Metoclopramide HCl 10 MG Metoclopramide HCl 10 MG 07/15/2020 12:00:00 AM EST 1.0 {tablet_before_meals} active Metoclopramide HCl 10 MG eCW1 ([facility]) Nortriptyline 25 MG Oral Capsule Nortriptyline HCl 25 MG Nortriptyline HCl 25 MG 07/15/2020 12:00:00 AM EST 1.0 {capsule} acti ve Nortriptyline HCl 25 MG eCW1 ([facility]) Metoclopramide 10 MG Oral Tablet Metoclopramide HCl 10 MG Metoclopramide HCl 10 MG 07/15/2020 12:00:00 AM EST 1.0 {tablet_before_meals} active Metoclopramide HCl 10 MG eCW1 ([facility]) Nortriptyline 25 MG Oral Capsule Nortriptyline HCl 25 MG Nortriptyline HCl 25 MG 07/15/2020 12:00:00 AM EST 1.0 {capsule} acti ve Nortriptyline HCl 25 MG eCW1 ([facility]) Nortriptyline 25 MG Oral Capsule Nortriptyline HCl 25 MG Nortriptyline HCl 25 MG 07/15/2020 12:00:00 AM EST 1.0 {capsule} acti ve Nortriptyline HCl 25 MG eCW1 ([facility]) 10 mg 07/12/2020 12:00:00 AM EST capsule 30 TAKE ONE CAPSULE BY MOUTH AT BEDTIME TAKE ONE CAPSULE BY MOUTH AT BEDTIME SOLD: 10/14/2020 [facility] 10 mg 07/12/2020 12:00:00 AM EST capsule 30 TAKE ONE CAPSULE BY MOUTH AT BEDTIME TAKE ONE CAPSULE BY MOUTH AT BEDTIME SOLD: 09/10/2020 [facility] 10 mg 07/12/2020 12:00:00 AM EST capsule 30 TAKE ONE CAPSULE BY MOUTH AT BEDTIME TAKE ONE CAPSULE BY MOUTH AT BEDTIME SOLD: 08/11/2020 [facility] 10 mg 07/12/2020 12:00:00 AM EST capsule 30 TAKE ONE CAPSULE BY MOUTH AT BEDTIME TAKE ONE CAPSULE BY MOUTH AT BEDTIME SOLD: 07/14/2020 [facility] 800 mg 07/07/2020 12:00:00 AM EST tablet 20 TAKE ONE TABLET BY MOUTH EVERY 8 HOURS TAKE ONE TABLET BY MOUTH EVERY 8 HOURS SOLD: 07/14/2020 [facility] 5-325 mg 07/07/2020 12:00:00 AM EST tablet 16 TAKE ONE TABLET BY MOUTH EVERY 6 HOURS NEEDED FOR PAIN MAXIMUM DAILY DOSE = 4 TABLETS TAKE ONE TABLET BY MOUTH EVERY 6 HOURS NEEDED FOR PAIN MAXIMUM DAILY DOSE = 4 TABLETS SOLD: 07/14/2020 [facility] 0.12 % 07/07/2020 12:00:00 AM EST mouthwash 473 RINSE MOUTH WITH 15 ML (1 CAPFUL) FOR 30 SECONDS IN THE MORNING AND EVENING AFTER TOOTHBRUSHING, SPIT AFTER RINSING, DO NOT SWALLOW RINSE MOUTH WITH 15 ML (1 CAPFUL) FOR 30 SECONDS IN THE MORNING AND EVENING AFTER TOOTHBRUSHING, SPIT AFTER RINSING, DO NOT SWALLOW SOLD: 07/14/2020 [facility] 0.12 % 07/07/2020 12:00:00 AM EST mouthwash 473 RINSE MOUTH WITH 15 ML (1 CAPFUL) FOR 30 SECONDS IN THE MORNING AND EVENING AFTER TOOTHBRUSHING, SPIT AFTER RINSING, DO NOT SWALLOW RINSE MOUTH WITH 15 ML (1 CAPFUL) FOR 30 SECONDS IN THE MORNING AND EVENING AFTER TOOTHBRUSHING, SPIT AFTER RINSING, DO NOT SWALLOW SOLD: 07/30/2020 [facility] tizanidine 4 MG Oral Tablet TIZANIDINE HCL 06/21/2020 12:00:00 AM EST tablet 30 TAKE ONE TABLET BY MOUTH AT BEDTIME NEEDED FOR SPAS MS TAKE ONE TABLET BY MOUTH AT BEDTIME NEEDED FOR SPASMS SOLD: 06/22/2020 [facility] 5-325 mg 05/31/2020 12:00:00 AM EST tablet 16 TAKE ONE TABLET BY MOUTH EVERY 6 HOURS NEEDED FOR PAIN MAXIMUM DAILY DOSE = 4 TAKE ONE TABLET BY MOUTH EVERY 6 HOURS NEEDED FOR PAIN MAXIMUM DAILY DOSE = 4 SOLD: 05/31/2020 [facility] 800 mg 05/31/2020 12:00:00 AM EST tablet 20 TAKE ONE TABLET BY MOUTH EVERY 8 HOURS TAKE ONE TABLET BY MOUTH EVERY 8 HOURS SOLD: 05/31/2020 [facility] tizanidine 4 MG [...] MOUTH EVERY DAY SOLD: 05/15/2020 [facility] duloxetine 60 MG Delayed Release Oral Capsule Duloxeti ne HCl 60 MG Duloxetine HCl 60 MG 05/06/2020 12:00:00 AM EST 1.0 {capsule} a ctive Duloxetine HCl 60 MG eCW1 ([facility]) duloxetine 60 MG Delayed Release Oral Capsule DULoxeti ne HCl 60 MG DULoxetine HCl 60 MG 05/06/2020 12:00:00 AM EST 1.0 {capsule} a ctive DULoxetine HCl 60 MG eCW1 ([facility]) duloxetine 60 MG Delayed Release Oral Capsule DULoxeti ne HCl 60 MG DULoxetine HCl 60 MG 05/06/2020 12:00:00 AM EST 1.0 {capsule} a ctive DULoxetine HCl 60 MG eCW1 ([facility]) duloxetine 60 MG Delayed Release Oral Capsule DULoxeti ne HCl 60 MG DULoxetine HCl 60 MG 05/06/2020 12:00:00 AM EST 1.0 {capsule} a ctive DULoxetine HCl 60 MG eCW1 ([facility]) duloxetine 60 MG Delayed Release Oral Capsule DULoxeti ne HCl 60 MG DULoxetine HCl 60 MG 05/06/2020 12:00:00 AM EST 1.0 {capsule} a ctive DULoxetine HCl 60 MG eCW1 ([facility]) duloxetine 60 MG Delayed Release Oral Capsule DULoxeti ne HCl 60 MG DULoxetine HCl 60 MG 05/06/2020 12:00:00 AM EST 1.0 {capsule} a ctive DULoxetine HCl 60 MG eCW1 ([facility]) duloxetine 60 MG Delayed Release Oral Capsule DULoxeti ne HCl 60 MG DULoxetine HCl 60 MG 05/06/2020 12:00:00 AM EST 1.0 {capsule} a ctive DULoxetine HCl 60 MG eCW1 ([facility]) duloxetine 60 MG Delayed Release Oral Capsule DULoxeti ne HCl 60 MG DULoxetine HCl 60 MG 05/06/2020 12:00:00 AM EST 1.0 {capsule} a ctive DULoxetine HCl 60 MG eCW1 ([facility]) duloxetine 60 MG Delayed Release Oral Capsule DULoxeti ne HCl 60 MG DULoxetine HCl 60 MG 05/06/2020 12:00:00 AM EST 1.0 {capsule} a ctive DULoxetine HCl 60 MG eCW1 ([facility]) duloxetine 60 MG Delayed Release Oral Capsule Duloxeti ne HCl 60 MG Duloxetine HCl 60 MG 05/06/2020 12:00:00 AM EST 1.0 {capsule} a ctive Duloxetine HCl 60 MG eCW1 ([facility]) duloxetine 60 MG Delayed Release Oral Capsule DULoxeti ne HCl 60 MG DULoxetine HCl 60 MG 05/06/2020 12:00:00 AM EST 1.0 {capsule} a ctive DULoxetine HCl 60 MG eCW1 ([facility]) duloxetine 60 MG Delayed Release Oral Capsule DULoxeti ne HCl 60 MG DULoxetine HCl 60 MG 05/06/2020 12:00:00 AM EST 1.0 {capsule} a ctive DULoxetine HCl 60 MG eCW1 ([facility]) duloxetine 60 MG Delayed Release Oral Capsule DULoxeti ne HCl 60 MG DULoxetine HCl 60 MG 05/06/2020 12:00:00 AM EST 1.0 {capsule} a ctive DULoxetine HCl 60 MG eCW1 ([facility]) duloxetine 60 MG Delayed Release Oral Capsule DULoxeti ne HCl 60 MG DULoxetine HCl 60 MG 05/06/2020 12:00:00 AM EST 1.0 {capsule} a ctive DULoxetine HCl 60 MG eCW1 ([facility]) duloxetine 60 MG Delayed Release Oral Capsule DULoxeti ne HCl 60 MG DULoxetine HCl 60 MG 05/06/2020 12:00:00 AM EST 1.0 {capsule} a ctive DULoxetine HCl 60 MG eCW1 ([facility]) duloxetine 60 MG Delayed Release Oral Capsule DULoxeti ne HCl 60 MG DULoxetine HCl 60 MG 05/06/2020 12:00:00 AM EST 1.0 {capsule} a ctive DULoxetine HCl 60 MG eCW1 ([facility]) duloxetine 60 MG Delayed Release Oral Capsule Duloxeti ne HCl 60 MG Duloxetine HCl 60 MG 05/06/2020 12:00:00 AM EST 1.0 {capsule} a ctive Duloxetine HCl 60 MG eCW1 ([facility]) duloxetine 60 MG Delayed Release Oral Capsule DULoxeti ne HCl 60 MG DULoxetine HCl 60 MG 05/06/2020 12:00:00 AM EST 1.0 {capsule} a ctive DULoxetine HCl 60 MG eCW1 ([facility]) duloxetine 60 MG Delayed Release Oral Capsule DULoxeti ne HCl 60 MG DULoxetine HCl 60 MG 05/06/2020 12:00:00 AM EST 1.0 {capsule} a ctive DULoxetine HCl 60 MG eCW1 ([facility]) duloxetine 60 MG Delayed Release Oral Capsule DULoxeti ne HCl 60 MG DULoxetine HCl 60 MG 05/06/2020 12:00:00 AM EST 1.0 {capsule} a ctive DULoxetine HCl 60 MG eCW1 ([facility]) duloxetine 60 MG Delayed Release Oral Capsule DULoxeti ne HCl 60 MG DULoxetine HCl 60 MG 05/06/2020 12:00:00 AM EST 1.0 {capsule} a ctive DULoxetine HCl 60 MG eCW1 ([facility]) duloxetine 60 MG Delayed Release Oral Capsule Duloxeti ne HCl 60 MG Duloxetine HCl 60 MG 05/06/2020 12:00:00 AM EST 1.0 {capsule} a ctive Duloxetine HCl 60 MG eCW1 ([facility]) duloxetine 60 MG Delayed Release Oral Capsule DULoxeti ne HCl 60 MG DULoxetine HCl 60 MG 05/06/2020 12:00:00 AM EST 1.0 {capsule} a ctive DULoxetine HCl 60 MG eCW1 ([facility]) duloxetine 60 MG Delayed Release Oral Capsule DULoxeti ne HCl 60 MG DULoxetine HCl 60 MG 05/06/2020 12:00:00 AM EST 1.0 {capsule} a ctive DULoxetine HCl 60 MG eCW1 ([facility]) duloxetine 60 MG Delayed Release Oral Capsule DULoxeti ne HCl 60 MG DULoxetine HCl 60 MG 05/06/2020 12:00:00 AM EST 1.0 {capsule} a ctive DULoxetine HCl 60 MG eCW1 ([facility]) duloxetine 60 MG Delayed Release Oral Capsule DULoxeti ne HCl 60 MG DULoxetine HCl 60 MG 05/06/2020 12:00:00 AM EST 1.0 {capsule} a ctive DULoxetine HCl 60 MG eCW1 ([facility]) duloxetine 60 MG Delayed Release Oral Capsule DULoxeti ne HCl 60 MG DULoxetine HCl 60 MG 05/06/2020 12:00:00 AM EST 1.0 {capsule} a ctive DULoxetine HCl 60 MG eCW1 ([facility]) duloxetine 60 MG Delayed Release Oral Capsule Duloxeti ne HCl 60 MG Duloxetine HCl 60 MG 05/06/2020 12:00:00 AM EST 1.0 {capsule} a ctive Duloxetine HCl 60 MG eCW1 ([facility]) duloxetine 60 MG Delayed Release Oral Capsule DULoxeti ne HCl 60 MG DULoxetine HCl 60 MG 05/06/2020 12:00:00 AM EST 1.0 {capsule} a ctive DULoxetine HCl 60 MG eCW1 ([facility]) duloxetine 60 MG Delayed Release Oral Capsule DULoxeti ne HCl 60 MG DULoxetine HCl 60 MG 05/06/2020 12:00:00 AM EST 1.0 {capsule} a ctive DULoxetine HCl 60 MG eCW1 ([facility]) duloxetine 60 MG Delayed Release Oral Capsule DULoxeti ne HCl 60 MG DULoxetine HCl 60 MG 05/06/2020 12:00:00 AM EST 1.0 {capsule} a ctive DULoxetine HCl 60 MG eCW1 ([facility]) duloxetine 60 MG Delayed Release Oral Capsule DULoxeti ne HCl 60 MG DULoxetine HCl 60 MG 05/06/2020 12:00:00 AM EST 1.0 {capsule} a ctive DULoxetine HCl 60 MG eCW1 ([facility]) duloxetine 60 MG Delayed Release Oral Capsule DULoxeti ne HCl 60 MG DULoxetine HCl 60 MG 05/06/2020 12:00:00 AM EST 1.0 {capsule} a ctive DULoxetine HCl 60 MG eCW1 ([facility]) duloxetine 60 MG Delayed Release Oral Capsule DULoxeti ne HCl 60 MG DULoxetine HCl 60 MG 05/06/2020 12:00:00 AM EST 1.0 {capsule} a ctive DULoxetine HCl 60 MG eCW1 ([facility]) duloxetine 60 MG Delayed Release Oral Capsule DULoxeti ne HCl 60 MG DULoxetine HCl 60 MG 05/06/2020 12:00:00 AM EST 1.0 {capsule} a ctive DULoxetine HCl 60 MG eCW1 ([facility]) duloxetine 60 MG Delayed Release Oral Capsule DULoxeti ne HCl 60 MG DULoxetine HCl 60 MG 05/06/2020 12:00:00 AM EST 1.0 {capsule} a ctive DULoxetine HCl 60 MG eCW1 ([facility]) duloxetine 60 MG Delayed Release Oral Capsule DULoxeti ne HCl 60 MG DULoxetine HCl 60 MG 05/06/2020 12:00:00 AM EST 1.0 {capsule} a ctive DULoxetine HCl 60 MG eCW1 ([facility]) duloxetine 60 MG Delayed Release Oral Capsule DULoxeti ne HCl 60 MG DULoxetine HCl 60 MG 05/06/2020 12:00:00 AM EST 1.0 {capsule} a ctive DULoxetine HCl 60 MG eCW1 ([facility]) duloxetine 60 MG Delayed Release Oral Capsule DULoxeti ne HCl 60 MG DULoxetine HCl 60 MG 05/06/2020 12:00:00 AM EST 1.0 {capsule} a ctive DULoxetine HCl 60 MG eCW1 ([facility]) duloxetine 60 MG Delayed Release Oral Capsule DULoxeti ne HCl 60 MG DULoxetine HCl 60 MG 05/06/2020 12:00:00 AM EST 1.0 {capsule} a ctive DULoxetine HCl 60 MG eCW1 ([facility]) duloxetine 60 MG Delayed Release Oral Capsule DULoxeti ne HCl 60 MG DULoxetine HCl 60 MG 05/06/2020 12:00:00 AM EST 1.0 {capsule} a ctive DULoxetine HCl 60 MG eCW1 ([facility]) duloxetine 60 MG Delayed Release Oral Capsule DULoxeti ne HCl 60 MG DULoxetine HCl 60 MG 05/06/2020 12:00:00 AM EST 1.0 {capsule} a ctive DULoxetine HCl 60 MG eCW1 ([facility]) duloxetine 60 MG Delayed Release Oral Capsule DULoxeti ne HCl 60 MG DULoxetine HCl 60 MG 05/06/2020 12:00:00 AM EST 1.0 {capsule} a ctive DULoxetine HCl 60 MG eCW1 ([facility]) duloxetine 60 MG Delayed Release Oral Capsule Duloxeti ne HCl 60 MG Duloxetine HCl 60 MG 05/06/2020 12:00:00 AM EST 1.0 {capsule} a ctive Duloxetine HCl 60 MG eCW1 ([facility]) duloxetine 60 MG Delayed Release Oral Capsule DULoxeti ne HCl 60 MG DULoxetine HCl 60 MG 05/06/2020 12:00:00 AM EST 1.0 {capsule} a ctive DULoxetine HCl 60 MG eCW1 ([facility]) duloxetine 60 MG Delayed Release Oral Capsule DULoxeti ne HCl 60 MG DULoxetine HCl 60 MG 05/06/2020 12:00:00 AM EST 1.0 {capsule} a ctive DULoxetine HCl 60 MG eCW1 ([facility]) duloxetine 60 MG Delayed Release Oral Capsule DULoxeti ne HCl 60 MG DULoxetine HCl 60 MG 05/06/2020 12:00:00 AM EST 1.0 {capsule} a ctive DULoxetine HCl 60 MG eCW1 ([facility]) duloxetine 60 MG Delayed Release Oral Capsule DULoxeti ne HCl 60 MG DULoxetine HCl 60 MG 05/06/2020 12:00:00 AM EST 1.0 {capsule} a ctive DULoxetine HCl 60 MG eCW1 ([facility]) duloxetine 60 MG Delayed Release Oral Capsule DULoxeti ne HCl 60 MG DULoxetine HCl 60 MG 05/06/2020 12:00:00 AM EST 1.0 {capsule} a ctive DULoxetine HCl 60 MG eCW1 ([facility]) duloxetine 60 MG Delayed Release Oral Capsule DULoxeti ne HCl 60 MG DULoxetine HCl 60 MG 05/06/2020 12:00:00 AM EST 1.0 {capsule} a ctive DULoxetine HCl 60 MG eCW1 ([facility]) duloxetine 60 MG Delayed Release Oral Capsule DULoxeti ne HCl 60 MG DULoxetine HCl 60 MG 05/06/2020 12:00:00 AM EST 1.0 {capsule} a ctive DULoxetine HCl 60 MG eCW1 ([facility]) duloxetine 60 MG Delayed Release Oral Capsule DULoxeti ne HCl 60 MG DULoxetine HCl 60 MG 05/06/2020 12:00:00 AM EST 1.0 {capsule} a ctive DULoxetine HCl 60 MG eCW1 ([facility]) duloxetine 60 MG Delayed Release Oral Capsule DULoxeti ne HCl 60 MG DULoxetine HCl 60 MG 05/06/2020 12:00:00 AM EST 1.0 {capsule} a ctive DULoxetine HCl 60 MG eCW1 ([facility]) duloxetine 60 MG Delayed Release Oral Capsule DULoxeti ne HCl 60 MG DULoxetine HCl 60 MG 05/06/2020 12:00:00 AM EST 1.0 {capsule} a ctive DULoxetine HCl 60 MG eCW1 ([facility]) duloxetine 60 MG Delayed Release Oral Capsule Duloxeti ne HCl 60 MG Duloxetine HCl 60 MG 05/06/2020 12:00:00 AM EST 1.0 {capsule} a ctive Duloxetine HCl 60 MG eCW1 ([facility]) duloxetine 60 MG Delayed Release Oral Capsule Duloxeti ne HCl 60 MG Duloxetine HCl 60 MG 05/06/2020 12:00:00 AM EST 1.0 {capsule} a ctive Duloxetine HCl 60 MG eCW1 ([facility]) 800 mg 2020 12:00:00 AM EDT tablet 20 TAKE ONE TABLET BY MOUTH EVERY 8 HOURS TAKE ONE TABLET BY MOUTH EVERY 8 HOURS SOLD: 2020 [facility] 5-325 mg 2020 12:00:00 AM EDT tablet 16 TAKE ONE TABLET BY MOUTH EVERY 6 HOURS NEEDED FOR PAIN, MAXIMUM DAILY DOSE = 4 TABLETS TAKE ONE TABLET BY MOUTH EVERY 6 HOURS NEEDED FOR PAIN, MAXIMUM DAILY DOSE = 4 TABLETS SOLD: 2020 [facility] 100 unit/mL (3 mL) 04/17/2020 12:00:00 AM EDT insulin pen 15 USE 70 UNITS SUBCUTANEOUS IN THE MORNING AND 90 UNITS IN THE EVENING USE 70 UNITS SUBCUTANEOUS IN THE MORNING AND 90 UNITS IN THE EVENING SOLD: 2020 [facility] Hydrochlorothiazide 12.5 MG Oral Tablet HYDROCHLOROTHIAZIDE 04/17/2020 12:00:00 AM EDT tablet 30 TAKE ONE TABLET BY MOUTH MONIQUE DAY TAKE ONE TABLET BY MOUTH EVERY DAY SOLD: 2020 [facility] Hydrochlorothiazide 12.5 MG Oral [...] EVERY DAY SOLD: 06/22/2020 [facility] 100 unit/mL (3 mL) 04/17/2020 12:00:00 AM EDT insulin pen 15 USE 70 UNITS SUBCUTANEOUS IN THE MORNING AND 90 UNITS IN THE EVENING USE 70 UNITS SUBCUTANEOUS IN THE MORNING AND 90 UNITS IN THE EVENING SOLD: 09/13/2020 [facility] 100 unit/mL (3 mL) 04/17/2020 12:00:00 AM EDT insulin pen 15 USE 70 UNITS SUBCUTANEOUS IN THE MORNING AND 90 UNITS IN THE EVENING USE 70 UNITS SUBCUTANEOUS IN THE MORNING AND 90 UNITS IN THE EVENING SOLD: 07/14/2020 [facility] 100 unit/mL (3 mL) 04/17/2020 12:00:00 AM EDT insulin pen 15 USE 70 UNITS SUBCUTANEOUS IN THE MORNING AND 90 UNITS IN THE EVENING USE 70 UNITS SUBCUTANEOUS IN THE MORNING AND 90 UNITS IN THE EVENING SOLD: 07/01/2020 [facility] 100 mg 04/08/2020 12:00:00 AM EDT capsule 30 TAKE ONE CAPSULE BY MOUTH EVERY DAY NEEDED TAKE ONE CAPSULE BY MOUTH EVERY DAY NEEDED SOLD: 04/12/2020 [facility] 100 mg 04/08/2020 12:00:00 AM EDT capsule 30 TAKE ONE CAPSULE BY MOUTH EVERY DAY NEEDED TAKE ONE CAPSULE BY MOUTH EVERY DAY NEEDED SOLD: 06/13/2020 [facility] 100 mg 04/08/2020 12:00:00 AM EDT capsule 30 TAKE ONE CAPSULE BY MOUTH EVERY DAY NEEDED TAKE ONE CAPSULE BY MOUTH EVERY DAY NEEDED SOLD: 05/15/2020 [facility] 100 mg 04/08/2020 12:00:00 AM EDT capsule 30 TAKE ONE CAPSULE BY MOUTH EVERY DAY NEEDED TAKE ONE CAPSULE BY MOUTH EVERY DAY NEEDED SOLD: 07/14/2020 [facility] [employer] 14 Day Sensor - [employer] 14 Day Senso r - 04/07/2020 12:00:00 AM EDT active [employer]Sty[employer] 14 Day Sensor - eCW1 ([facility]) [employer] 14 Day Sensor - [employer] 14 Day Senso r 04/07/2020 12:00:00 AM EDT active [employer] 14 Day Sensor - eCW1 ([facility]) [employer] 14 Day Sensor - [employer] 14 Day Senso r 04/07/2020 12:00:00 AM EDT active [employer] 14 Day Sensor - eCW1 ([facility]) [employer] 14 Day Sensor - [employer] 14 Day Senso r 04/07/2020 12:00:00 AM EDT active [employer] 14 Day Sensor - eCW1 ([facility]) [employer] 14 Day Sensor - [employer] 14 Day Senso r - 04/07/2020 12:00:00 AM EDT active [employer] 14 Day Sensor - eCW1 ([facility]) [employer] 14 Day Sensor - [employer] 14 Day Senso r - 04/07/2020 12:00:00 AM EDT active [employer] 14 Day Sensor - eCW1 ([facility]) [employer] [place] - [employer] 14 Day [employer]ade 04/07/2020 12:00:00 AM EDT active [employer] [place] - eCW1 ([facility]) [employer] - [employer] 14 Day Reade r 04/07/2020 12:00:00 AM EDT active [employer] [place] [place] - eCW1 ([facility]) [employer] 14 Day Sensor - [employer] 14 Day Senso r 04/07/2020 12:00:00 AM EDT active [employer] 14 Day Sensor - eCW1 ([facility]) [employer] 14 Day Sensor - [employer] 14 Day Senso 04/07/2020 12:00:00 AM EDT active [employer] 14 Day Sensor - eCW1 ([facility]) [employer] [place] - [employer] 14 Day [place]ade 04/07/2020 12:00:00 AM EDT active [employer] [place] - eCW1 ([facility]) [employer] [place] - [employer] 14 Day [employer]ade 04/07/2020 12:00:00 AM EDT active [employer] [place] - eCW1 ([facility]) [employer] [place] - [employer] 14 Day Reade 04/07/2020 12:00:00 AM EDT active [employer] [place] [place] - eCW1 ([facility]) [employer] [place] - [employer] 14 Day [place]ade 04/07/2020 12:00:00 AM EDT active [employer] [place] - eCW1 ([facility]) [employer] 14 Day Sensor - [employer] 14 Day Senso r 04/07/2020 12:00:00 AM EDT active [employer] 14 Day Sensor - eCW1 ([facility]) [employer] 14 Day Sensor - [employer] 14 Day Senso r 04/07/2020 12:00:00 AM EDT active [employer] 14 Day Sensor - eCW1 ([facility]) [employer] 14 Day Sensor - [employer] 14 Day Senso r 04/07/2020 12:00:00 AM EDT active [employer] 14 Day Sensor - eCW1 ([facility]) [employer] [place] - [employer] 14 Day Reade r 04/07/2020 12:00:00 AM EDT active [employer] [place] [place] - eCW1 ([facility]) [employer] [place] - [employer] 14 Day Reade r 04/07/2020 12:00:00 AM EDT active [employer] [place] [place] - eCW1 ([facility]) [employer] [place] - [employer] 14 Day Reade 04/07/2020 12:00:00 AM EDT active [employer] [place] [place] - eCW1 ([facility]) [employer] [place] - [employer] 14 Day Reade 04/07/2020 12:00:00 AM EDT active [employer] [place] - eCW1 ([facility]) [employer] [place] - [employer] 14 Day Reade 04/07/2020 12:00:00 AM EDT active [employer] [place] [place] - eCW1 ([facility]) [employer] 14 Day Sensor - [employer] 14 Day Senso r 04/07/2020 12:00:00 AM EDT active [employer] 14 Day Sensor - eCW1 ([facility]) [employer] 14 Day Sensor - [employer] 14 Day Senso r 04/07/2020 12:00:00 AM EDT active [employer] 14 Day Sensor - eCW1 ([facility]) [employer] 14 Day Sensor - [employer] 14 Day Senso r 04/07/2020 12:00:00 AM EDT active [employer] 14 Day Sensor - eCW1 ([facility]) [employer] [place] - [employer] 14 Day Reade r 04/07/2020 12:00:00 AM EDT active [employer] [place] [place] - eCW1 ([facility]) [employer] 14 Day Sensor - [employer] 14 Day Senso r 04/07/2020 12:00:00 AM EDT active [employer] 14 Day Sensor - eCW1 ([facility]) [employer] 14 Day Sensor - [employer] 14 Day Senso r 04/07/2020 12:00:00 AM EDT active [employer] 14 Day Sensor - eCW1 ([facility]) [employer] [place] - [employer] 14 Day [place]ade 04/07/2020 12:00:00 AM EDT active [employer] [place] [place] - eCW1 ([facility]) [employer] [place] [place] - [employer] 14 Day Reade 04/07/2020 12:00:00 AM EDT active [employer] [place] [place] - eCW1 ([facility]) [employer] 14 Day Sensor - [employer] 14 Day Senso r 04/07/2020 12:00:00 AM EDT active [employer] 14 Day Sensor - eCW1 ([facility]) [employer] 14 Day Sensor - [employer] 14 Day Senso r 04/07/2020 12:00:00 AM EDT active [employer] 14 Day Sensor - eCW1 ([facility]) [employer] [place] - [employer] 14 Day Reade r 04/07/2020 12:00:00 AM EDT active [employer] [place] [place] - eCW1 ([facility]) [employer] [place] - [employer] 14 Day Reade r 04/07/2020 12:00:00 AM EDT active [employer] [place] - eCW1 ([facility]) [employer] [place] - [employer] 14 Day Reade 04/07/2020 12:00:00 AM EDT active [employer] [place] - eCW1 ([facility]) [employer] 14 Day Sensor - [employer] 14 Day Senso r 04/07/2020 12:00:00 AM EDT active [employer] 14 Day Sensor - eCW1 ([facility]) [employer] [place] 14 Day Sensor - [employer] 14 Day Senso 04/07/2020 12:00:00 AM EDT active [employer] 14 Day Sensor - eCW1 ([facility]) [employer] [place] - [employer] 14 Day [place]ade 04/07/2020 12:00:00 AM EDT active [employer] [place] - eCW1 ([facility]) [employer] [place] - [employer] 14 Day Reade 04/07/2020 12:00:00 AM EDT active [employer] [place] - eCW1 ([facility]) [employer] [place] - [employer] 14 Day Reade 04/07/2020 12:00:00 AM EDT active [employer] [place] - eCW1 ([facility]) [employer] [place] - [employer] 14 Day [place]ade 04/07/2020 12:00:00 AM EDT active [employer] [place] - eCW1 ([facility]) [employer] [place] [place] - [employer] 14 Day [place]ade 04/07/2020 12:00:00 AM EDT active [employer] [place] - eCW1 ([facility]) [employer] [place] - [employer] 14 Day Reade r 04/07/2020 12:00:00 AM EDT active [employer] [place] - eCW1 ([facility]) [employer] 14 Day Sensor - [employer] 14 Day Senso r 04/07/2020 12:00:00 AM EDT active [employer] 14 Day Sensor - eCW1 ([facility]) [employer] [place] - [employer] 14 Day Reade 04/07/2020 12:00:00 AM EDT active [employer] [place] [place] - eCW1 ([facility]) [employer] 14 Day Sensor - [employer] 14 Day Senso 04/07/2020 12:00:00 AM EDT active [employer] 14 Day Sensor - eCW1 ([facility]) [employer] [place] - [employer] 14 Day Reade 04/07/2020 12:00:00 AM EDT active [employer] [place] [place] - eCW1 ([facility]) [employer] [place] - [employer] 14 Day Reade 04/07/2020 12:00:00 AM EDT active [employer] [place] - eCW1 ([facility]) [employer] 14 Day Sensor - [employer] 14 Day Senso 04/07/2020 12:00:00 AM EDT active [employer] 14 Day Sensor - eCW1 ([facility]) [employer] 14 Day Sensor - [employer] 14 Day Senso r 04/07/2020 12:00:00 AM EDT active [employer] 14 Day Sensor - eCW1 ([facility]) [employer] 14 Day Sensor - [employer] 14 Day Senso 04/07/2020 12:00:00 AM EDT active [employer] 14 Day Sensor - eCW1 ([facility]) [employer] [place] - [employer] 14 Day Reade r 04/07/2020 12:00:00 AM EDT active [employer] - eCW1 ([facility]) [employer] [place] - [employer] 14 Day Reade r 04/07/2020 12:00:00 AM EDT active [employer] [place] - eCW1 ([facility]) [employer] [place] - [employer] 14 Day Reade 04/07/2020 12:00:00 AM EDT active [employer] [place] - eCW1 ([facility]) [employer] [place] - [employer] 14 Day Reade 04/07/2020 12:00:00 AM EDT active [employer] [place] [place] - eCW1 ([facility]) [employer] 14 Day Sensor - [employer] 14 Day Senso 04/07/2020 12:00:00 AM EDT active [employer] 14 Day Sensor - eCW1 ([facility]) [employer] [place] [place] - [employer] 14 Day Reade 04/07/2020 12:00:00 AM EDT active [employer] [place] - eCW1 ([facility]) [employer] [place] - [employer] 14 Day Reade 04/07/2020 12:00:00 AM EDT active [employer] [place] [place] - eCW1 ([facility]) [employer] 14 Day Sensor - [employer] 14 Day Senso 04/07/2020 12:00:00 AM EDT active [employer] 14 Day Sensor - eCW1 ([facility]) [employer] [place] - [employer] 14 Day Reade 04/07/2020 12:00:00 AM EDT active [employer] [place] [place] - eCW1 ([facility]) [employer] [place] [place] - [employer] 14 Day [place]ade 04/07/2020 12:00:00 AM EDT active [employer] [place] [place] - eCW1 ([facility]) [employer] [place] [place] - [employer] 14 Day Reade r 04/07/2020 12:00:00 AM EDT active [employer] [place] [place] - eCW1 ([facility]) [employer] 14 Day Sensor - [employer] 14 Day Senso r 04/07/2020 12:00:00 AM EDT active [employer] 14 Day Sensor - eCW1 ([facility]) [employer] [place] [place] - [employer] 14 Day Reade r 04/07/2020 12:00:00 AM EDT active [employer] [place] - eCW1 ([facility]) [employer] [place] - [employer] 14 Day Reade r 04/07/2020 12:00:00 AM EDT active [employer] [place] [place] - eCW1 ([facility]) [employer] 14 Day Sensor - [employer] 14 Day Senso r 04/07/2020 12:00:00 AM EDT active [employer] 14 Day Sensor - eCW1 ([facility]) [employer] 14 Day Sensor - [employer] 14 Day Senso r 04/07/2020 12:00:00 AM EDT active [employer] 14 Day Sensor - eCW1 ([facility]) [employer] [place] - [employer] 14 Day [place]ade 04/07/2020 12:00:00 AM EDT active [employer] - eCW1 ([facility]) [employer] 14 Day Sensor - [employer] 14 Day Senso r 04/07/2020 12:00:00 AM EDT active [employer]Sty[employer] Ralph 14 Day Sensor - eCW1 ([facility]) [employer] 14 Day Sensor - [employer] 14 Day Senso r 04/07/2020 12:00:00 AM EDT active [employer] Ralph 14 Day Sensor - eCW1 ([facility]) [employer] 14 Day Sensor - [employer] 14 Day Senso r 04/07/2020 12:00:00 AM EDT active [employer] Ralph 14 Day Sensor - eCW1 ([facility]) [employer] 14 [place] - [employer] 14 Day Reade r 04/07/2020 12:00:00 AM EDT active [employer] [place] - eCW1 ([facility]) [employer] 14 Day Sensor - [employer] 14 Day Senso r 04/07/2020 12:00:00 AM EDT active [employer] Ralph 14 Day Sensor - eCW1 ([facility]) [employer] 14 Day Sensor - [employer] 14 Day Senso r 04/07/2020 12:00:00 AM EDT active [employer] Ralph 14 Day Sensor - eCW1 ([facility]) [employer] [place] - [employer] 14 Day Reade 04/07/2020 12:00:00 AM EDT active [employer] [place] - eCW1 ([facility]) [employer] [place] [place] - [employer] 14 Day Reade 04/07/2020 12:00:00 AM EDT active [employer] [place] - eCW1 ([facility]) [employer] [place] [place] - [employer] 14 Day Reade 04/07/2020 12:00:00 AM EDT active [employer] [place] - eCW1 ([facility]) [employer] 14 Day Sensor - [employer] 14 Day Senso r 04/07/2020 12:00:00 AM EDT active [employer] 14 Day Sensor - eCW1 ([facility]) [employer] 14 Day Sensor - [employer] 14 Day Senso r 04/07/2020 12:00:00 AM EDT active [employer]Sty[employer] 14 Day Sensor - eCW1 ([facility]) [employer] 14 Day Sensor - [employer] 14 Day Senso r 04/07/2020 12:00:00 AM EDT active [employer] Ralph 14 Day Sensor - eCW1 ([facility]) [employer] 14 Day Sensor - [employer] 14 Day Senso r 04/07/2020 12:00:00 AM EDT active [employer]Sty[employer] Ralph 14 Day Sensor - eCW1 ([facility]) [employer] 14 Day Sensor - [employer] 14 Day Senso r 04/07/2020 12:00:00 AM EDT active [employer]Sty[employer] 14 Day Sensor - eCW1 ([facility]) [employer] 14 Day Sensor - [employer] 14 Day Senso r 04/07/2020 12:00:00 AM EDT active [employer] Ralph 14 Day Sensor - eCW1 ([facility]) [employer] [place] - [employer] 14 Day Reade r 04/07/2020 12:00:00 AM EDT active [employer] [place] - eCW1 ([facility]) [employer] [place] - [employer] 14 Day Reade r 04/07/2020 12:00:00 AM EDT active [employer] [place] - eCW1 ([facility]) [employer] 14 Day Sensor - [employer] 14 Day Senso r 04/07/2020 12:00:00 AM EDT active [employer]Styl [employer] Ralph 14 Day Sensor - eCW1 ([facility]) [employer] 14 Day Sensor - [employer] 14 Day Senso r 04/07/2020 12:00:00 AM EDT active [employer]Styl [employer] Ralph 14 Day Sensor - eCW1 ([facility]) [employer] 14 Day Sensor - [employer] Ralph 14 Day Senso r 04/07/2020 12:00:00 AM EDT active [employer]Styl e Ralph 14 Day Sensor - eCW1 ([facility]) [employer] 14 Day Sensor - [employer] Ralph 14 Day Senso r 04/07/2020 12:00:00 AM EDT active [employer]Styl [employer] Ralph 14 Day Sensor - eCW1 ([facility]) [employer] 14 Day Sensor - Free[employer] Ralph 14 Day Senso r 04/07/2020 12:00:00 AM EDT active [employer]Styl [employer] Ralph 14 Day Sensor - eCW1 ([facility]) [employer] [place] - [employer] Ralph 14 Day Reade r 04/07/2020 12:00:00 AM EDT active [employer] 14 [place] - eCW1 ([facility]) [employer] 14 Day Sensor - [employer] Ralph 14 Day Senso r 04/07/2020 12:00:00 AM EDT active [employer]Styl e Ralph 14 Day Sensor - eCW1 ([facility]) [employer] [place] - [employer] 14 Day Reade 04/07/2020 12:00:00 AM EDT active [employer] 14 [place] - eCW1 ([facility]) [employer] 14 [employer] [place] - [employer] Ralph 14 Day Reade 04/07/2020 12:00:00 AM EDT active [employer] 14 [place] - eCW1 ([facility]) [employer] Ralph 14 Day Sensor - Free[employer] Ralph 14 Day Senso r 04/07/2020 12:00:00 AM EDT active FreeStyl e Ralph 14 Day Sensor - eCW1 ([facility]) [employer] Ralph 14 Day Sensor - [employer] Ralph 14 Day Senso r 04/07/2020 12:00:00 AM EDT active [employer]Styl [employer] Ralph 14 Day Sensor - eCW1 ([facility]) [employer] Ralph 14 Day Sensor - Free[employer] Ralph 14 Day Senso r 04/07/2020 12:00:00 AM EDT active [employer]Styl e Ralph 14 Day Sensor - eCW1 ([facility]) [employer] [place] - [employer] Ralph 14 Day Reade 04/07/2020 12:00:00 AM EDT active [employer] 14 [place] - eCW1 ([facility]) [employer] [place] - [employer] 14 Day Reade 04/07/2020 12:00:00 AM EDT active [employer] 14 [place] - eCW1 ([facility]) [employer] 14 [employer] [place] - [employer] Ralph 14 Day Reade 04/07/2020 12:00:00 AM EDT active [employer] 14 [place] - eCW1 ([facility]) [employer] 14 [employer] [place] - [employer] Ralph 14 Day Reade 04/07/2020 12:00:00 AM EDT active [employer] 14 [place] - eCW1 ([facility]) [employer] 14 [employer] [place] - [employer] Ralph 14 Day Reade 04/07/2020 12:00:00 AM EDT active [employer] 14 [place] - eCW1 ([facility]) [employer] 14 [employer] [place] - [employer] 14 Day Reade 04/07/2020 12:00:00 AM EDT active [employer] 14 [place] - eCW1 ([facility]) [employer] Ralph 14 Day Sensor - [employer] Ralph 14 Day Senso 04/07/2020 12:00:00 AM EDT active [employer]Styl [employer] Ralph 14 Day Sensor - eCW1 ([facility]) [employer] 14 Day Sensor - Free[employer] Ralph 14 Day Senso 04/07/2020 12:00:00 AM EDT active [employer]Styl [employer] Ralph 14 Day Sensor - eCW1 ([facility]) [employer] [place] - [employer] 14 Day Reade 04/07/2020 12:00:00 AM EDT active [employer] 14 [place] - eCW1 ([facility]) [employer] Ralph 14 Day Sensor - Free[employer] Ralph 14 Day Senso r 04/07/2020 12:00:00 AM EDT active [employer]Styl [employer] Ralph 14 Day Sensor - eCW1 ([facility]) [employer] [place] - [employer] Ralph 14 Day Reade r 04/07/2020 12:00:00 AM EDT active [employer] 14 [place] - eCW1 ([facility]) [employer] [place] - [employer] Ralph 14 Day Reade r 04/07/2020 12:00:00 AM EDT active [employer] 14 [place] - eCW1 ([facility]) [employer] 14 [employer] [place] - [employer] Ralph 14 Day Reade 04/07/2020 12:00:00 AM EDT active [employer] 14 [place] - eCW1 ([facility]) [employer] Ralph 14 Day Sensor - FreeStyle Ralph 14 Day Senso r 04/07/2020 12:00:00 AM EDT active [employer]Styl e Ralph 14 Day Sensor - eCW1 ([facility]) [employer] Ralph 14 Day Sensor - FreeStyle Ralph 14 Day Senso 04/07/2020 12:00:00 AM EDT active FreeStyl e Ralph 14 Day Sensor - eCW1 ([facility]) [employer] 14 [place] - [employer] 14 Day Reade 04/07/2020 12:00:00 AM EDT active [employer] 14 [place] - eCW1 ([facility]) [employer] Ralph 14 Day Sensor - FreeStyle Ralph 14 Day Senso r 04/07/2020 12:00:00 AM EDT active [employer]Styl e Ralph 14 Day Sensor - eCW1 ([facility]) [employer] Ralph 14 Day Sensor - FreeStyle Ralph 14 Day Senso r 04/07/2020 12:00:00 AM EDT active FreeStyl e Ralph 14 Day Sensor - eCW1 ([facility]) [employer] Ralph 14 Day Sensor - [employer]Style Ralph 14 Day Senso r - 04/07/2020 12:00:00 AM EDT active FreeStyl e Ralph 14 Day Sensor - eCW1 ([facility]) 1,000 unit 04/05/2020 12:00:00 AM EDT capsule 30 TAKE ONE CAPSULE BY MOUTH EVERY DAY TAKE ONE CAPSULE BY MOUTH EVERY DAY SOLD: 05/15/2020 [facility] 1,000 unit 04/05/2020 12:00:00 AM EDT capsule 30 TAKE ONE CAPSULE BY MOUTH EVERY DAY TAKE ONE CAPSULE BY MOUTH EVERY DAY SOLD: 06/22/2020 [facility] 1,000 unit 04/05/2020 12:00:00 AM EDT capsule 30 TAKE ONE CAPSULE BY MOUTH EVERY DAY TAKE ONE CAPSULE BY MOUTH EVERY DAY SOLD: 04/12/2020 [facility] 81 mg 04/02/2020 12:00:00 AM [...] FOR SPASMS SOLD: 04/03/2020 [facility] 81 mg 04/02/2020 12:00:00 AM EDT tablet,chewable 30 CHEW ONE TABLET BY MOUTH EVERY DAY CHEW ONE TABLET BY MOUTH EVERY DAY SOLD: 05/06/2020 [facility] 325 mg (65 mg iron) 04/02/2020 12:00:00 AM EDT tablet 30 TAKE ONE TABLET BY MOUTH EVERY DAY TAKE ONE TABLET BY MOUTH EVERY DAY SOLD: 06/10/2020 [facility] 81 mg 04/02/2020 12:00:00 AM EDT tablet,chewable 30 CHEW ONE TABLET BY MOUTH EVERY DAY CHEW ONE TABLET BY MOUTH EVERY DAY SOLD: 07/17/2020 [facility] 325 mg (65 mg iron) [...] ONE TABLET BY MOUTH EVERY DAY SOLD: 09/13/2020 [facility] 81 mg 04/02/2020 12:00:00 AM EDT tablet,chewable 30 CHEW ONE TABLET BY MOUTH EVERY DAY CHEW ONE TABLET BY MOUTH EVERY DAY SOLD: 08/13/2020 [facility] 100 unit/mL (3 mL) 03/24/2020 12:00:00 AM EDT insulin pen 45 INJECT 70 UNITS UNDER SKIN IN THE MORNING AND 90 UNITS IN THE EVENING INJECT 70 UNITS UNDER SKIN IN THE MORNING AND 90 UNITS IN THE EVENING SOLD: 03/25/2020 [facility] 800 mg 03/12/2020 12:00:00 AM EDT tablet 20 TAKE ONE TABLET BY MOUTH EVERY 8 HOURS TAKE ONE TABLET BY MOUTH EVERY 8 HOURS SOLD: 03/13/2020 [facility] 5-325 mg 03/12/2020 12:00:00 AM EDT tablet 16 TAKE ONE TABLET BY MOUTH EVERY 6 HOURS NEEDED FOR PAIN MAXIMUM DAILY DOSE = 4 TAKE ONE TABLET BY MOUTH EVERY 6 HOURS NEEDED FOR PAIN MAXIMUM DAILY DOSE = 4 SOLD: 03/13/2020 [facility] Metformin hydrochloride 1000 MG Oral Tablet 1,000 mg METFORM IN HCL 03/10/2020 12:00:00 AM EDT tablet 60 TAKE ONE TABLET BY MOUTH TWICE A DAY WITH FOOD TAKE ONE TABLET BY MOUTH TWICE A DAY WITH FOOD SOLD: 04/12/2020 [facility] Metformin hydrochloride 1000 MG Oral Tablet 1,000 mg METFORM IN HCL 03/10/2020 12:00:00 AM EDT tablet 60 TAKE ONE TABLET BY MOUTH TWICE A DAY WITH FOOD TAKE ONE TABLET BY MOUTH TWICE A DAY WITH FOOD SOLD: 03/11/2020 [facility] pioglitazone 30 MG Oral Tablet [...] ONE TABLET BY MOUTH EVERY DAY SOLD: 08/11/2020 [facility] pioglitazone 30 MG Oral [...] TWICE A DAY SOLD: 2020 [facility] 40 mg 02/20/2020 12:00:00 AM [...] TWICE A DAY SOLD: 02/22/2020 [facility] 800 mg 02/20/2020 12:00:00 AM EDT tablet 20 TAKE 1 TABLET BY MOUTH EVERY 8 HOURS TAKE 1 TABLET BY MOUTH EVERY 8 HOURS SOLD: 02/22/2020 [facility] 40 mg 02/20/2020 12:00:00 AM EDT capsule,delayed release (DR/EC) 60 TAKE ONE CAPSULE BY MOUTH TWICE A DAY TAKE ONE CAPSULE BY MOUTH TWICE A DAY SOLD: 03/22/2020 [facility] atorvastatin 80 MG Oral Tablet [...] EVERY DAY SOLD: 06/13/2020 [facility] atorvastatin 80 MG Oral [...] EVERY DAY SOLD: 03/18/2020 [facility] 10 mg 02/03/2020 12:00:00 AM EDT tablet 30 TAKE ONE TABLET BY MOUTH EVERY DAY TAKE ONE TABLET BY MOUTH EVERY DAY SOLD: 03/06/2020 [facility] 10 mg 02/03/2020 12:00:00 AM EDT tablet 30 TAKE ONE TABLET BY MOUTH EVERY DAY TAKE ONE TABLET BY MOUTH EVERY DAY SOLD: 04/03/2020 [facility] 100 unit/mL (3 mL) 01/30/2020 [...] IN THE EVENING SOLD: 02/16/2020 [facility] Hydrochlorothiazide 12.5 MG Oral Tablet HYDROCHLOROTHIAZIDE 01/16/2020 12:00:00 AM EDT tablet 30 TAKE ONE TABLET BY MOUTH TAKE ONE TABLET BY MOUTH EVERY DAY SOLD: 03/18/2020 [facility] Hydrochlorothiazide 12.5 MG Oral Tablet HYDROCHLOROTHIAZIDE 01/16/2020 12:00:00 AM EDT tablet 30 TAKE ONE TABLET BY MOUTH TAKE ONE TABLET BY MOUTH EVERY DAY SOLD: 02/16/2020 [facility] 10 mg 01/10/2020 12:00:00 [...] MOUTH EVERY DAY SOLD: 03/18/2020 [facility] 10 mg 01/10/2020 12:00:00 AM EDT capsule 30 TAKE ONE CAPSULE BY MOUTH AT BEDTIME TAKE ONE CAPSULE BY MOUTH AT BEDTIME SOLD: 05/15/2020 [facility] 10 mg 01/10/2020 12:00:00 AM [...] MOUTH AT BEDTIME SOLD: 06/13/2020 [facility] 100 mg 12/06/2019 12:00:00 AM EDT capsule 30 TAKE ONE CAPSULE BY MOUTH EVERY DAY NEEDED TAKE ONE CAPSULE BY MOUTH EVERY DAY NEEDED SOLD: 03/06/2020 [facility] Insurance Providers Payer name Policy type / Coverage type Policy ID Covered green party ID Covered green party's relationship to mcneil Policy Mcneil Plan Information [place] Medig[place] Part B [id number] Self [id number] MEDICAID [id number] SP [id number] [employer] COMMUNITY PLAN MCDO [id number] SP [id number] HMO BLUE [id number] SP [id number] BLUE CROSS PALACI[place] PLAN [id number] SP [id number] [facility] Community Plan Medigap Part B [id number] Self BS Cayla Hmo Blue Option Commercial [id number] Self [facility] Community Plan Medigap Part B [id number] Self [id number] [facility] Community Plan Medigap Part B [id number] Self [id number] [facility] Community Plan Medigap Part B [id number] Self [id number] HC COMMUNITY PLAN MCDHMO [id number] SP [id number] HC COMMUNITY PLAN MCDHMO [id number] SP [id number] [facility] COMMUNITY PLAN MCDO [id number] SP [id number] [facility] COMMUNITY PLAN MCDO [id number] SP [id number] [facility] Community Plan Commercial [id number] Self [id number] [employer] COMMUNITY PLAN MCDO [id number] SP [id number] [facility] I [id number] Self [id number] UN[employer] COMMUNITY PLAN MCDHMO [id number] SP [id number] [employer] COMMUNITY PLAN MCDO [id number] SP [id number] [facility] COMMUNITY PLAN MCDO [id number] SP [id number] [facility] COMMUNITY PLAN MCDO [id number] SP [id number] SELF PAY ANSI-Medicaid [id number] ANSI-Medicaid [id number] ANSI-Medicaid [id number] ANSI-Medicaid [id number] ANSI-Medicaid [id number] ANSI-Medicaid [id number] ANSI-Medicaid [id number] ANSI-Medicaid [id number] ANSI-Medicaid [id number] ANSI-Medicaid [id number] [facility] [employer] Maintenance Organization ([facility]) [id number] [facility] [id number] ANSI-Medicaid [id number] ANSI-Medicaid [id number] ANSI-Medicaid [id number] ANSI-Medicaid [id number] ANSI-Medicaid [id number] ANSI-Medicaid 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 67 mm[Hg] 67 mm[Hg] REBA ([facility], ) Body height 66 [in_i] 66 [in_i] REBA ([facility], ) 5'6" Body weight 224.00 [lb_av] 224.00 [lb_av] NICHOLAS Gupta ([facility]) Body mass index (BMI) [Ratio] 36.2 kg/m2 36.2 k g/m2 [facility] ([facility]) [place] body weight 130 [lb_av] 130 [lb_av] MEDEN T ([facility]) Body weight 101.606 kg 101.606 kg [facility] ([facility]) Body surface area Derived from formula 2.10 m2 2.10 m2 [facility] ([facility]) Body weight 216.4 [lb_av] 216.4 [lb_av] eCW1 ([facility]) Body weight 98.16 kg 98.16 kg eCW1 ([facility]) Body height 68 [in_i] 68 [in_i] eCW1 ([facility]) Body mass index (BMI) [Ratio] 32.90 kg/m2 32.90 kg/m2 W1 ([facility]) Body surface area Derived from formula 2.04 m2 2.04 m2 [facility] ([facility]) Systolic blood pressure 138 mm[Hg] 138 [facility] Diastolic blood pressure 73 mm[Hg] 73 mm[Hg] [facility] ([facility]) Body height 66 [in_i] 66 [in_i] [facility] ([facility]) 5'6" Body weight 210.00 [lb_av] 210.00 [lb_av] MEDEN T ([facility]) Body mass index (BMI) [Ratio] 33.9 kg/m2 33.9 k g/m2 [facility] ([facility]) [place] body weight 130 [lb_av] 130 [lb_av] MEDEN T ([facility]) Body weight 95.256 kg 95.256 kg [facility] ([facility]) Body mass index (BMI) [Ratio] 32.57 kg/m2 32.57 kg/m2 eCW1 ([facility]) Body weight 214.2 [lb_av] 214.2 [lb_av] eCW1 ([facility]) Body weight 97.16 kg 97.16 kg eCW1 ([facility]) Body height 68 [in_i] 68 [in_i] eCW1 ([facility]) Diastolic blood pressure 60 mm[Hg] 60 mm[Hg] eCW1 ([facility]) Heart rate 107 /min 107 /min eCW1 ([facility]) Respiratory rate 18 /min 18 /min eCW1 ([facility]) Body temperature 98.3 [degF] 98.3 [degF] eCW1 ( [facility]) Systolic blood pressure 110 mm[Hg] 110 mm[Hg] e CW1 ([facility]) Body weight 219.0 [lb_av] 219.0 [lb_av] eCW1 ([facility]) Body weight 99.34 kg 99.34 kg eCW1 ([facility]) Body height 68 [in_i] 68 [in_i] eCW1 ([facility]) Body mass index (BMI) [Ratio] 33.30 kg/m2 33.30 kg/m2 eCW1 ([facility]) Heart rate 110 /min 110 /min eCW1 ([facility]) Respiratory rate 18 /min 18 /min eCW1 ([facility]) Body temperature 99.2 [degF] 99.2 [degF] eCW1 ( [facility]) Systolic blood pressure 140 mm[Hg] 140 mm[Hg] e CW1 ([facility]) Diastolic blood pressure 70 mm[Hg] 70 mm[Hg] eCW1 ([facility]) Body height 66 [in_i] 66 [in_i] REBA [facility] 5'6" Body weight 100.246 kg 100.246 kg MEDTOMMIE ([facility], ) Body surface area Derived from formula 2.09 m2 2.09 m2 REBA ([facility], ) Systolic blood pressure 125 mm[Hg] 125 mm[Hg] M EDENT ([facility], ) Diastolic blood pressure 65 mm[Hg] 65 mm[Hg] [facility] ([facility]) Body weight 221.00 [lb_av] 221.00 [lb_av] [facility] ([facility]) Body mass index (BMI) [Ratio] 35.7 kg/m2 35.7 k g/m2 [facility] ([facility]) [place] body weight 130 [lb_av] 130 [lb_av] MEDEN T ([facility]) Body weight 230.0 [lb_av] 230.0 [lb_av] eCW1 ([facility]) Body height 68 [in_i] 68 [in_i] eCW1 ([facility]) Body mass index (BMI) [Ratio] 34.97 kg/m2 34.97 kg/m2 W1 ([facility]) Heart rate 111 /min 111 /min eCW1 ([facility]) Respiratory rate 18 /min 18 /min eCW1 ([facility]) Body temperature 98.4 [degF] 98.4 [degF] eCW1 ( [facility]) Systolic blood pressure 120 mm[Hg] 120 mm[Hg] e CW1 ([facility]) Diastolic blood pressure 70 mm[Hg] 70 mm[Hg] eCW1 ([facility]) Body weight 240.0 [lb_av] 240.0 [lb_av] eCW1 ([facility]) Body height 68 [in_i] 68 [in_i] eCW1 ([facility]) Body mass index (BMI) [Ratio] 36.49 kg/m2 36.49 kg/m2 eCW1 ([facility]) Heart rate 99 /min 99 /min eCW1 ([facility]) Respiratory rate 18 /min 18 /min eCW1 ([facility]) Body temperature 97.4 [degF] 97.4 [degF] eCW1 ( [facility]) Systolic blood pressure 118 mm[Hg] 118 mm[Hg] e CW1 ([facility]) Diastolic blood pressure 68 mm[Hg] 68 mm[Hg] eCW1 ([facility]) Body weight 252 [lb_av] 252 [lb_av] eCW1 ([facility]) Body height 68 [in_i] 68 [in_i] eCW1 ([facility]) Body mass index (BMI) [Ratio] 38.31 kg/m2 38.31 kg/m2 eCW1 ([facility]) Heart rate 98 /min 98 /min eCW1 ([facility]) Respiratory rate 18 /min 18 /min eCW1 ([facility]) Body temperature 97.6 [degF] 97.6 [degF] eCW1 ( [facility]) Systolic blood pressure 126 mm[Hg] 126 mm[Hg] e CW1 ([facility]) Diastolic blood pressure 72 mm[Hg] 72 mm[Hg] eCW1 ([facility]) Body temperature 97.0 [degF] 97.0 [degF] eCW1 ( [facility]) Body weight 254.4 [lb_av] 254.4 [lb_av] eCW1 ([facility]) Body height 68 [in_i] 68 [in_i] eCW1 ([facility]) Body mass index (BMI) [Ratio] 38.68 kg/m2 38.68 kg/m2 eCW1 ([facility]) Heart rate 78 /min 78 /min eCW1 ([facility]) Respiratory rate 18 /min 18 /min eCW1 ([facility]) Systolic blood pressure 110 mm[Hg] 110 mm[Hg] e CW1 ([facility]) Diastolic blood pressure 68 mm[Hg] 68 mm[Hg] eCW1 ([facility]) Body weight 240 [lb_av] 240 [lb_av] eCW1 ([facility]) Body height 68 [in_i] 68 [in_i] eCW1 ([facility]) Body mass index (BMI) [Ratio] 36.49 kg/m2 36.49 kg/m2 eCW1 ([facility]) Heart rate 104 /min 104 /min eCW1 ([facility]) Respiratory rate 18 /min 18 /min eCW1 ([facility]) Body temperature 97.4 [degF] 97.4 [degF] eCW1 ( [facility]) Systolic blood pressure 138 mm[Hg] 138 mm[Hg] e CW1 ([facility]) Diastolic blood pressure 78 mm[Hg] 78 mm[Hg] eCW1 ([facility]) Body height 66 [in_i] 66 [in_i] MEDENT ([facility]) 5'6" Body mass index (BMI) [Ratio] 34.7 kg/m2 34.7 k g/m2 [facility] ([facility]) Body weight 215.00 [lb_av] 215.00 [lb_av] MEDEN T ([facility]) Systolic blood pressure 167 mm[Hg] 167 mm[Hg] M EDENT ([facility]) Diastolic blood pressure 88 mm[Hg] 88 mm[Hg] [facility] Body weight 215.00 [lb_av] 215.00 [lb_av] MEDEN T ([facility]) Body mass index (BMI) [Ratio] 34.7 kg/m2 34.7 k g/m2 [facility] ([facility]) [place] body weight 130 [lb_av] 130 [lb_av] MEDEN T ([facility]) Body weight 97.524 kg 97.524 kg [facility] ([facility]) Body surface area Derived from formula 2.06 m2 2.06 m2 [facility] ([facility]) Body height 66 [in_i] 66 [in_i] MEDENT ([facility]) 5'6" [place] body weight 130 [lb_av] 130 [lb_av] MEDEN T ([facility]) Body weight 97.524 kg 97.524 kg [facility] ([facility]) Body surface area Derived from formula 2.06 m2 2.06 m2 [facility] ([facility]) Systolic blood pressure 135 mm[Hg] 135 mm[Hg] M EDENT ([facility]) Diastolic blood pressure 86 mm[Hg] 86 mm[Hg] MEDENT ([facility], [facility]) Heart rate 98 /min 98 /min MEDENT ([facility]) Respiratory rate 24 /min 24 /min MEDENT ( [facility], [facility]) Oxygen saturation in Arterial blood by Pulse oximetry 98 % 98 % MEDENT ([facility], [facility]) Body temperature 98.4 [degF] 98.4 [degF] MEDENT ([facility], [facility]) Body weight 214.00 [lb_av] 214.00 [lb_av] MEDEN T ([facility], [facility]) Body height 65 [in_i] 65 [in_i] MEDENT ([facility], [facility]) 5'5" Body mass index (BMI) [Ratio] 35.6 kg/m2 35.6 k g/m2 MEDENT ([facility], [facility]) Systolic blood pressure 162 mm[Hg] 162 mm[Hg] e CW1 ([facility]) Body weight 219 [lb_av] 219 [lb_av] eCW1 ([facility]) Body height 68 [in_i] 68 [in_i] eCW1 ([facility]) Body mass index (BMI) [Ratio] 33.30 kg/m2 33.30 kg/m2 eCW1 ([facility]) Heart rate 107 /min 107 /min eCW1 ([facility]) Respiratory rate 19 /min 19 /min eCW1 ([facility]) Body temperature 97.4 [degF] 97.4 [degF] eCW1 ( [facility]) Diastolic blood pressure 74 mm[Hg] 74 mm[Hg] eCW1 ([facility]) Body weight 226 [lb_av] 226 [lb_av] eCW1 ([facility]) Body height 68 [in_i] 68 [in_i] eCW1 ([facility]) Body mass index (BMI) [Ratio] 34.36 kg/m2 34.36 kg/m2 eCW1 ([facility]) Heart rate 107 /min 107 /min eCW1 ([facility]) Respiratory rate 18 /min 18 /min eCW1 ([facility]) Body temperature 97.3 [degF] 97.3 [degF] eCW1 ( [facility]) Systolic blood pressure 126 mm[Hg] 126 mm[Hg] e CW1 ([facility]) Diastolic blood pressure 82 mm[Hg] 82 mm[Hg] eCW1 ([facility]) Body weight 224.0 [lb_av] 224.0 [lb_av] eCW1 ([facility]) Body height 68 [in_i] 68 [in_i] eCW1 ([facility]) Body mass index (BMI) [Ratio] 34.06 kg/m2 34.06 kg/m2 eCW1 ([facility]) Heart rate 89 /min 89 /min eCW1 ([facility]) Respiratory rate 18 /min 18 /min eCW1 ([facility]) Body temperature 97.5 [degF] 97.5 [degF] eCW1 ( [facility]) Systolic blood pressure 154 mm[Hg] 154 mm[Hg] e CW1 ([facility]) Diastolic blood pressure 82 mm[Hg] 82 mm[Hg] eCW1 ([facility]) Body temperature 98.0 [degF] 98.0 [degF] eCW1 ( [facility]) Body weight 225 [lb_av] 225 [lb_av] eCW1 ([facility]) Body height 68 [in_i] 68 [in_i] eCW1 ([facility]) Body mass index (BMI) [Ratio] 34.21 kg/m2 34.21 kg/m2 eCW1 ([facility]) Heart rate 118 /min 118 /min eCW1 ([facility]) Respiratory rate 19 /min 19 /min eCW1 ([facility]) Systolic blood pressure 140 mm[Hg] 140 mm[Hg] e CW1 ([facility]) Diastolic blood pressure 86 mm[Hg] 86 mm[Hg] eCW1 ([facility]) Patient Treatment Plan of Care Planned Activity Planned Date Details Description Data Source (s) Cyclobenzaprine hydrochloride 5 MG Oral Tablet 04/08/2021 12:00:00 AM EDT eCW1 ([facility]) Cyclobenzaprine hydrochloride 5 MG Oral Tablet 04/08/2021 12:00:00 AM EDT eCW1 ([facility]) Diphenhydramine Hydrochloride 25 MG Oral Capsule 03/01/2021 12:00:0 0 AM EDT eCW1 ([facility]) Diphenhydramine Hydrochloride 25 MG Oral Capsule 03/01/2021 12:00:0 0 AM EDT eCW1 ([facility]) Diphenhydramine Hydrochloride 25 MG Oral Capsule 03/01/2021 12:00:0 0 AM EDT eCW1 ([facility]) Diphenhydramine Hydrochloride 25 MG Oral Capsule 03/01/2021 12:00:0 0 AM EDT eCW1 ([facility]) Diphenhydramine Hydrochloride 25 MG Oral Capsule 03/01/2021 12:00:0 0 AM EDT eCW1 ([facility]) Diphenhydramine Hydrochloride 25 MG Oral Capsule 03/01/2021 12:00:0 0 AM EDT eCW1 ([facility]) Diphenhydramine Hydrochloride 25 MG Oral Capsule 03/01/2021 12:00:0 0 AM EDT eCW1 ([facility]) Diphenhydramine Hydrochloride 25 MG Oral Capsule 03/01/2021 12:00:0 0 AM EDT eCW1 ([facility]) Diphenhydramine Hydrochloride 25 MG Oral Capsule 03/01/2021 12:00:0 0 AM EDT eCW1 ([facility]) Diphenhydramine Hydrochloride 25 MG Oral Capsule 03/01/2021 12:00:0 0 AM EDT eCW1 ([facility]) Diphenhydramine Hydrochloride 25 MG Oral Capsule 03/01/2021 12:00:0 0 AM EDT eCW1 ([facility]) Diphenhydramine Hydrochloride 25 MG Oral Capsule 03/01/2021 12:00:0 0 AM EDT eCW1 ([facility]) Diphenhydramine Hydrochloride 25 MG Oral Capsule 03/01/2021 12:00:0 0 AM EDT eCW1 ([facility]) Diphenhydramine Hydrochloride 25 MG Oral Capsule 03/01/2021 12:00:0 0 AM EDT eCW1 ([facility]) Lancets - 02/07/2021 12:00:00 AM EDT e CW1 ([facility]) tramadol hydrochloride 50 MG Oral Tablet 02/07/2021 12:00:00 AM EDT eCW1 ([facility]) Lancets - 02/07/2021 12:00:00 AM EDT e CW1 ([facility]) tramadol hydrochloride 50 MG Oral Tablet 02/07/2021 12:00:00 AM EDT eCW1 ([facility]) Wheelchair - 01/04/2021 12:00:00 AM EDT e CW1 ([facility]) Wheelchair - 01/04/2021 12:00:00 AM EDT e CW1 ([facility]) Wheelchair - 01/04/2021 12:00:00 AM EDT e CW1 ([facility]) Wheelchair - 01/04/2021 12:00:00 AM EDT e CW1 ([facility]) Wheelchair - 01/04/2021 12:00:00 AM EDT e CW1 ([facility]) Wheelchair - 01/04/2021 12:00:00 AM EDT e CW1 ([facility]) Wheelchair - 01/04/2021 12:00:00 AM EDT e CW1 ([facility]) Wheelchair - 01/04/2021 12:00:00 AM EDT e CW1 ([facility]) Wheelchair - 01/04/2021 12:00:00 AM EDT e CW1 ([facility]) Furosemide 20 MG Oral Tablet [Lasix] 01/03/2021 12:00:00 AM EDT eCW1 ([facility]) Spironolactone 50 MG Oral Tablet 01/03/2021 12:00:00 AM EDT eCW1 ([facility]) Furosemide 20 MG Oral Tablet [Lasix] 01/03/2021 12:00:00 AM EDT eCW1 ([facility]) Spironolactone 50 MG Oral Tablet 01/03/2021 12:00:00 AM EDT eCW1 ([facility]) Spironolactone 50 MG Oral Tablet 01/03/2021 12:00:00 AM EDT eCW1 ([facility]) Furosemide 20 MG Oral Tablet [Lasix] 01/03/2021 12:00:00 AM EDT eCW1 ([facility]) Spironolactone 50 MG Oral Tablet 01/03/2021 12:00:00 AM EDT eCW1 ([facility]) Furosemide 20 MG Oral Tablet [Lasix] 01/03/2021 12:00:00 AM EDT eCW1 ([facility]) Spironolactone 50 MG Oral Tablet 01/03/2021 12:00:00 AM EDT eCW1 ([facility]) Furosemide 20 MG Oral Tablet [Lasix] 01/03/2021 12:00:00 AM EDT eCW1 ([facility]) Spironolactone 50 MG Oral Tablet 01/03/2021 12:00:00 AM EDT eCW1 ([facility]) Furosemide 20 MG Oral Tablet [Lasix] 01/03/2021 12:00:00 AM EDT eCW1 ([facility]) Spironolactone 50 MG Oral Tablet 01/03/2021 12:00:00 AM EDT eCW1 ([facility]) Furosemide 20 MG Oral Tablet [Lasix] 01/03/2021 12:00:00 AM EDT eCW1 ([facility]) Spironolactone 50 MG Oral Tablet 01/03/2021 12:00:00 AM EDT eCW1 ([facility]) Furosemide 20 MG Oral Tablet [Lasix] 01/03/2021 12:00:00 AM EDT eCW1 ([facility]) Furosemide 20 MG Oral Tablet [Lasix] 01/03/2021 12:00:00 AM EDT eCW1 ([facility]) Spironolactone 50 MG Oral Tablet 01/03/2021 12:00:00 AM EDT eCW1 ([facility]) Furosemide 20 MG Oral Tablet [Lasix] 01/03/2021 12:00:00 AM EDT eCW1 ([facility]) Spironolactone 50 MG Oral Tablet 01/03/2021 12:00:00 AM EDT eCW1 ([facility]) tramadol hydrochloride 50 MG Oral Tablet 12/07/2020 12:00:00 AM EDT eCW1 ([facility]) Spironolactone 50 MG Oral Tablet 12/07/2020 12:00:00 AM EDT eCW1 ([facility]) tramadol hydrochloride 50 MG Oral Tablet 12/07/2020 12:00:00 AM EDT eCW1 ([facility]) Spironolactone 50 MG Oral Tablet 12/07/2020 12:00:00 AM EDT eCW1 ([facility]) tramadol hydrochloride 50 MG Oral Tablet 12/07/2020 12:00:00 AM EDT eCW1 ([facility]) Spironolactone 50 MG Oral Tablet 12/07/2020 12:00:00 AM EDT eCW1 ([facility]) tramadol hydrochloride 50 MG Oral Tablet 12/07/2020 12:00:00 AM EDT eCW1 ([facility]) Spironolactone 50 MG Oral Tablet 12/07/2020 12:00:00 AM EDT eCW1 ([facility]) Spironolactone 50 MG Oral Tablet 12/07/2020 12:00:00 AM EDT eCW1 ([facility]) tramadol hydrochloride 50 MG Oral Tablet 12/07/2020 12:00:00 AM EDT eCW1 ([facility]) Spironolactone 50 MG Oral Tablet 12/07/2020 12:00:00 AM EDT eCW1 ([facility]) tramadol hydrochloride 50 MG Oral Tablet 12/07/2020 12:00:00 AM EDT eCW1 ([facility]) Spironolactone 50 MG Oral Tablet 12/07/2020 12:00:00 AM EDT eCW1 ([facility]) tramadol hydrochloride 50 MG Oral Tablet 12/07/2020 12:00:00 AM EDT eCW1 ([facility]) tramadol hydrochloride 50 MG Oral Tablet 12/07/2020 12:00:00 AM EDT eCW1 ([facility]) tramadol hydrochloride 50 MG Oral Tablet 12/07/2020 12:00:00 AM EDT eCW1 ([facility]) Spironolactone 50 MG Oral Tablet 12/07/2020 12:00:00 AM EDT eCW1 ([facility]) Spironolactone 50 MG Oral Tablet 12/07/2020 12:00:00 AM EDT eCW1 ([facility]) tramadol hydrochloride 50 MG Oral Tablet 12/07/2020 12:00:00 AM EDT eCW1 ([facility]) Spironolactone 50 MG Oral Tablet 12/07/2020 12:00:00 AM EDT eCW1 ([facility]) tramadol hydrochloride 50 MG Oral Tablet 12/01/2020 12:00:00 AM EDT eCW1 ([facility]) tramadol hydrochloride 50 MG Oral Tablet 12/01/2020 12:00:00 AM EDT eCW1 ([facility]) tramadol hydrochloride 50 MG Oral Tablet 12/01/2020 12:00:00 AM EDT eCW1 ([facility]) tramadol hydrochloride 50 MG Oral Tablet 12/01/2020 12:00:00 AM EDT eCW1 ([facility]) tramadol hydrochloride 50 MG Oral Tablet 12/01/2020 12:00:00 AM EDT eCW1 ([facility]) tramadol hydrochloride 50 MG Oral Tablet 12/01/2020 12:00:00 AM EDT eCW1 ([facility]) tramadol hydrochloride 50 MG Oral Tablet 12/01/2020 12:00:00 AM EDT eCW1 ([facility]) tramadol hydrochloride 50 MG Oral Tablet 12/01/2020 12:00:00 AM EDT eCW1 ([facility]) Metoclopramide 10 MG Oral Tablet 07/15/2020 12:00:00 AM EST eCW1 ([facility]) Nortriptyline 25 MG Oral Capsule 07/15/2020 12:00:00 AM EST eCW1 ([facility]) Metoclopramide 10 MG Oral Tablet 07/15/2020 12:00:00 AM EST eCW1 ([facility]) Nortriptyline 25 MG Oral Capsule 07/15/2020 12:00:00 AM EST eCW1 ([facility]) Nortriptyline 25 MG Oral Capsule 07/15/2020 12:00:00 AM EST eCW1 ([facility]) Metoclopramide 10 MG Oral Tablet 07/15/2020 12:00:00 AM EST eCW1 ([facility]) Nortriptyline 25 MG Oral Capsule 07/15/2020 12:00:00 AM EST eCW1 ([facility]) Metoclopramide 10 MG Oral Tablet 07/15/2020 12:00:00 AM EST eCW1 ([facility]) Nortriptyline 25 MG Oral Capsule 07/15/2020 12:00:00 AM EST eCW1 ([facility]) Metoclopramide 10 MG Oral Tablet 07/15/2020 12:00:00 AM EST eCW1 ([facility]) Nortriptyline 25 MG Oral Capsule 07/15/2020 12:00:00 AM EST eCW1 ([facility]) Metoclopramide 10 MG Oral Tablet 07/15/2020 12:00:00 AM EST eCW1 ([facility]) duloxetine 60 MG Delayed Release Oral Capsule 05/06/2020 12:00:00 A M EST eCW1 ([facility]) duloxetine 60 MG Delayed Release Oral Capsule 05/06/2020 12:00:00 A M EST eCW1 ([facility]) FreeStyle [place] - 04/07/2020 12:00:00 AM EDT eCW1 ([facility]) FreeStyle Ralph 14 Day Sensor - 04/07/2020 12:00:00 AM EDT eCW1 ([facility]) FreeStyle Ralph 14 Day Sensor - 04/07/2020 12:00:00 AM EDT eCW1 ([facility]) FreeStyle Ralph 14 Day [place] - 04/07/2020 12:00:00 AM EDT eCW1 ([facility])
[2021-04-15] MEDS ORDERED: SPIR50TA4 PO (13:29)
[2021-04-15] MEDS ORDERED: AMOX875T2 PO (13:32)
[2021-04-15] MEDS ORDERED: HumaLOG INSULIN (NovoLOG) PER UNIT SC ONE (13:50)
[2021-04-15] MEDS ORDERED: fentaNYL 100 MCG/2 ML INJECTION (J3010) As Ordered ONE (13:58)
[2021-04-15] MEDS ORDERED: LIDOCAINE 2% 100MG/5ML SDV (FOR ANES.) As Ordered ONE (14:03)
[2021-04-15] MEDS ORDERED: propofoL 200 MG/20 ML VIAL As Ordered ONE (14:03)
--- NOTE | 2021-04-15 14:35 | ROOR ---
Patient Name: Felicita Esposito Procedure Date: 04/15/2021 1:59 PM Date of : 1965 Age: 55 Room: [facility] Gender: Female Note Status: Finalized Procedure: Upper GI endoscopy Indications: Follow-up of esophageal varices Providers: Jack Landaverde MD Referring MD: Kasey Pgy-1 Lakhwinder Requesting Provider: Medicines: Monitored Anesthesia Care Complications: No immediate complications. Procedure: Pre-Anesthesia Assessment: - The heart rate, respiratory rate, oxygen saturations, blood pressure, adequacy of pulmonary ventilation, and response to care were monitored throughout the procedure. The Endoscope was introduced through the mouth, and advanced to the second part of duodenum. The upper GI endoscopy was accomplished without difficulty. The patient tolerated the procedure well. Findings: Grade I varices were found in the lower third of the esophagus,. They were small in size. Stigmata of prior treatment were evident. The varices appeared smaller than they were at prior exam. (Varices are small today, primary prevention/eradication not indicated today) Mild portal hypertensive gastropathy was found in the gastric fundus. The exam was otherwise without abnormality. Impression: - Grade I esophageal varices. (Varices are small today, primary prevention/eradication not indicated today) - Portal hypertensive gastropathy. - The examination was otherwise normal. - No specimens collected. Recommendation: - Return to my office in 3 months. Procedure Code(s): --- Professional --- 30374, Esophagogastroduodenoscopy, flexible, transoral; diagnostic, including collection of specimen(s) by brushing or washing, when performed (separate procedure) Diagnosis Code(s): --- Professional --- K31.89, Other diseases of stomach and duodenum K76.6, Portal hypertension I85.00, Esophageal varices without bleeding CPT copyright 2019 [employer]. All rights reserved. The codes documented in this report are preliminary and upon racking machine operator review may be revised to meet current compliance requirements. Jack Landaverde MD Jack Landaverde MD 04/15/2021 2:34:52 PM Electronically signed by Jack Landaverde MD Number of Addenda: 0 Note Initiated On: 04/15/2021 1:59 PM Estimated Blood Loss: Estimated blood loss: none.
[2021-04-15 14:40] VITALS: BP 133/59
[2021-04-19] MEDS ORDERED: CYCL-707 PO (16:29)
== END 2021-04-15 14:51 | disposition home or self-care (01) ==
LOC: M OPP 12:40
PROVIDERS: ATTEND Internal Medicine Gastroenterology
DX: K31.89 Other diseases of stomach and duodenum (principal); K76.6 Portal hypertension; I85.00 Esophageal varices without bleeding; Z79.4 Long term (current) use of insulin; Z79.891 Long term (current) use of opiate analgesic; Z79.899 Other long term (current) drug therapy; Z91.048 Other nonmedicinal substance allergy status
CPT/HCPCS: 43235; J3010

== ENCOUNTER → 2021-04-20 | Outpatient (CLI) | payer OTHER ==
[~2021-04-20] MED LIST changes: +AMOX875T2 PO; +CYCL-707 PO; -NS 1,000 ML IV ONE
--- NOTE | 2021-04-20 11:46 | REP ---
INDICATION: RIGHT LOWER QUADRANT PAIN CT 1ST AND ANGIO [address]. COMPARISON: Multiple the latest 11/18/2020 also with contrast TECHNIQUE: Standard helical technique after the intravenous administration of 100 cc Isovue 370. FINDINGS: There is no significant change in the lung bases. The liver and spleen are unchanged. There is cirrhosis and splenomegaly. The gallbladder is contracted. Interim development of cholelithiasis cannot be ruled out. The abdominal aorta and para-aortic regions are unchanged. There are borderline lymph node status quo. There borderline lymph node seen in the celiac axis and odilia hepatis. The pancreas, adrenal glands, and kidneys are unchanged. There is ascites status quo. There are tiny fluid collections along the anterior abdominal wall likely secondary to tiny ventral rents which appears stable. There is anasarca status quo. There is no significant change in appearance of the bowel loops. There are multiple borderline inguinal and pelvic sidewall lymph nodes status quo. There is no significant change in the appearance of the imaged osseous structures. IMPRESSION: 1. Cirrhosis and hepatomegaly status quo. 2. Possible cholelithiasis. 3. Ascites status quo. 4. Lymph nodes as described above. 5. Tiny ventral rents essentially unchanged from the prior exam at least 2 possibly 3 in number. 6. Other findings as described above. <Electronically signed by Vinicius Smith > 04/20/21 [id number]
[2021-04-20 12:31] VITALS: BP 135/72
--- NOTE | 2021-04-20 18:50 | REP ---
INDICATION: ASCITES The patient has a history of ascites COMPARISON: None. TECHNIQUE: The procedure was performed by HIMA Zuniga, under the direct supervision of Dr. Hall The risks and benefits of the procedure were explained to the patient and an informed consent was obtained both verbally and written. Directly prior to the start of the procedure a formal time-out was completed in the procedure room. A 1st attempt was made to access a fluid collection on the left-hand side. After the patient was prepped draped and 10 cc 1% lidocaine 10 mg/mL was used as local anaesthetic to that area it was deemed unsafe to proceed with procedure. Bowel loops had moved back into the field of view. The tray was reset and a new site was selected. The largest pocket of fluid was localized in the right lower quadrant using ultrasound guidance. The skin was prepped and draped in a sterile fashion. Fifteen ML of 1% lidocaine 10 mg/ml was used as a local anesthetic. An 8-Latvian multi side-hole catheter was inserted using trocar technique. FINDINGS: 5600 mL of yellow fluid was removed from the patient. The patient tolerated the procedure well and there were no immediate complications. After the appropriate amount of monitored convalescence, the patient was discharged from the department. IMPRESSION: Technically successful paracentesis yielding 5600 mL of yellow fluid. <Electronically signed by Frannie Wu > 04/20/21 [id number] <Electronically signed by Cirilo Hall > 04/20/21 [id number]
== END ==
LOC: M IRPRO 10:44
PROVIDERS: ATTEND Internal Medicine Gastroenterology
DX: R18.8 Other ascites (principal)

== ENCOUNTER → 2021-04-20 | Outpatient (CLI) | payer OTHER ==
[~2021-04-20] MED LIST changes: +ISOVUE-370 76% 100ML VIAL As Ordered ONE
== END ==
LOC: M RAD 10:48
PROVIDERS: ATTEND Internal Medicine Gastroenterology
DX: R19.03 Right lower quadrant abdominal swelling, mass and lump (principal); M79.3 Panniculitis, unspecified

== ENCOUNTER 2021-04-21 16:48 | Emergency (ER) | payer OTHER ==
[~2021-04-21] VITALS: Ht 157.5 cm; Wt 101.8 kg
[~2021-04-21 16:48] MED LIST changes: -ISOVUE-370 76% 100ML VIAL As Ordered ONE
[2021-04-21] MEDS ORDERED: MORPHINE 4 MG/ML 1ML VIAL/SYRINGE (J2270) IV ONE (20:40)
[2021-04-21 21:48] LABS: BASO % 0.4 % (0.0-1.0); EOS # 0.1 10^3/uL (0.0-0.5); EOS % 2.4 % (0.0-3.0); HEMATOCRIT 29.7 % (36.0-47.0); HEMOGLOBIN 9.8 g/dl (12.0-15.5); LYMPH # 0.7 10^3/uL (1.5-5.0); LYMPH % 14.8 % (24.0-44.0); MEAN CORPUSCULAR HEMOGLOBIN 29.2 pg (27.0-33.0); MEAN CORPUSCULAR VOLUME 88.4 fl (80.0-96.0); MONO # 0.5 10^3/uL (0.0-0.8); MONO % 11.2 % (2.0-8.0); NEUTROPHILS # 3.3 10^3/uL (1.5-8.5); NEUTROPHILS % 70.6 % (36.0-66.0); PLATELET COUNT, AUTOMATED 113 10^3/uL (150-450); RED BLOOD COUNT 3.36 10^6/uL (4.00-5.40); WHITE BLOOD COUNT 4.7 10^3/uL (4.0-10.0)
--- NOTE | 2021-04-21 22:01 | REPVR ---
PROCEDURE INFORMATION: Exam: US Duplex Lower Extremity Veins, Bilateral Exam date and time: 04/21/2021 9:19 PM Age: 56 years old Clinical indication: Pain; Leg, upper and leg, lower; Bilateral; Additional info: Lower leg swelling, R/O dvt TECHNIQUE: Imaging protocol: Real-time duplex ultrasound of the extremities with 2-D morse scale, color Doppler flow and spectral waveform analysis with image documentation. Complete exam focused on the bilateral lower extremity veins. COMPARISON: US Duplex, Ext LOWER veins, bilat 12/02/2020 6:13 PM FINDINGS: Right deep veins: Suboptimal visualization of the calf veins. The common femoral, femoral and popliteal veins are patent without thrombus. Normal Doppler waveforms. Normal compressibility and/or augmentation response. Right superficial veins: Saphenofemoral junction is patent without thrombus. Left deep veins: Suboptimal visualization of the calf veins. The common femoral, femoral and popliteal veins are patent without thrombus. Normal Doppler waveforms. Normal compressibility and/or augmentation response. Left superficial veins: Saphenofemoral junction is patent without thrombus. Soft tissues: Subcutaneous edema in the calves. IMPRESSION: No sonographic evidence of deep vein thrombosis. Electronically signed by: Baron Story On 04/21/2021 22:00:35 PM
[2021-04-21 22:13] LABS: ERYTHROCYTE SEDIMENTATION RATE 63 mm/hr (0-30)
[2021-04-21 22:18] LABS: C REACTIVE PROTEIN QUANTITATIV 3.25 MG/DL (0.00-0.30)
[2021-04-21] MEDS ORDERED: POTASSIUM CHLORIDE 10MEQ SR TABLET PO ONE (22:35)
[2021-04-21] MEDS ORDERED: FUROSEMIDE 40MG/4ML VIAL (J1940) IV ONE (22:35)
[2021-04-21 23:34] VITALS: BP 121/83
== END 2021-04-21 23:38 | disposition home or self-care (01) ==
LOC: M ED 16:48
DX: R60.9 Edema, unspecified (principal); E65 Localized adiposity; E11.9 Type 2 diabetes mellitus without complications; I10 Essential (primary) hypertension; E78.5 Hyperlipidemia, unspecified; Z91.048 Other nonmedicinal substance allergy status; Z79.899 Other long term (current) drug therapy; Z79.4 Long term (current) use of insulin
CPT/HCPCS: 80047; 83880; 85025; 85652; 86140; 93970; 96374; 96375; 99284; J1940; J2270

== ENCOUNTER → 2021-04-27 | Outpatient (CLI) | payer OTHER ==
[2021-04-27 16:38] VITALS: BP 138/75
--- NOTE | 2021-04-27 17:26 | REP ---
INDICATION: ASCITES. COMPARISON: None. TECHNIQUE: The procedure was performed under the direct supervision of Dr. Hall. The risks and benefits of the procedure were explained to the patient and informed consent was obtained. The largest pocket of fluid was localized in the right flank using ultrasound guidance. The skin was prepped and draped in a sterile fashion. 8 mL of 1% lidocaine was used as a local anesthetic. Using ultrasound guidance, an 8-[place] multi side-hole catheter was inserted using trocar technique.4800 mL of yellow fluid was withdrawn and discarded. Estimated blood loss: Less than 1 mL The patient tolerated the procedure well and there were no immediate complications. After the appropriate amount of monitored convalescence, the patient was discharged from the department. FINDINGS: None IMPRESSION: Ultrasound-guided paracentesis [id number] mL of yellow fluid. <Electronically signed by Reece Araiza > 04/27/21 1713 <Electronically signed by Cirilo Hall > 04/27/21 1728
== END ==
LOC: M IRPRO 14:59
PROVIDERS: ATTEND Internal Medicine Gastroenterology
DX: R18.8 Other ascites (principal)

== ENCOUNTER 2021-04-28 15:22 | Emergency (ER) | payer OTHER ==
[~2021-04-28] VITALS: Ht 162.6 cm; Wt 100.0 kg
[2021-04-28 15:22] VITALS: BP 133/64
[2021-04-29] MEDS ORDERED: CONS10SO3 (11:52)
[2021-04-29] MEDS ORDERED: MACR100C43 PO (16:54)
[2021-04-29] MEDS ORDERED: HYDR-3713 PO (17:14)
== END 2021-04-28 21:54 | disposition left against medical advice (07) ==
LOC: M ED 15:22
DX: Z53.21 Procedure and treatment not carried out due to patient leaving prior to being seen by health care provider (principal)

== ENCOUNTER 2021-04-29 11:30 | Emergency (ER) | payer OTHER ==
[~2021-04-29] VITALS: Ht 162.6 cm; Wt 100.0 kg
[2021-04-29] MEDS ORDERED: CONS10SO3 (11:52)
[2021-04-29] MEDS ORDERED: MORPHINE 4 MG/ML 1ML VIAL/SYRINGE (J2270) IV ONE (12:20)
[2021-04-29] MEDS ORDERED: ONDANSETRON 4MG/2ML VIAL IV ONE (12:20)
[2021-04-29] MEDS ORDERED: ISOVUE-370 76% 100ML VIAL As Ordered ONE (13:02)
[2021-04-29 13:06] LABS: BASO % 0.5 % (0.0-1.0); EOS # 0.1 10^3/uL (0.0-0.5); EOS % 2.8 % (0.0-3.0); HEMATOCRIT 28.6 % (36.0-47.0); HEMOGLOBIN 9.1 g/dl (12.0-15.5); LYMPH # 0.4 10^3/uL (1.5-5.0); LYMPH % 10.6 % (24.0-44.0); MEAN CORPUSCULAR HEMOGLOBIN 28.4 pg (27.0-33.0); MEAN CORPUSCULAR HGB CONC 31.8 g/dl (32.0-36.5); MEAN CORPUSCULAR VOLUME 89.4 fl (80.0-96.0); MONO # 0.5 10^3/uL (0.0-0.8); MONO % 12.3 % (2.0-8.0); NEUTROPHILS # 2.9 10^3/uL (1.5-8.5); PLATELET COUNT, AUTOMATED 141 10^3/uL (150-450)
[2021-04-29 13:29] LABS: ALBUMIN 1.6 GM/DL (3.2-5.2); BILIRUBIN,DIRECT 0.5 MG/DL (0.0-0.2); BILIRUBIN,TOTAL 0.8 MG/DL (0.2-1.0); C REACTIVE PROTEIN QUANTITATIV 6.56 MG/DL (0.00-0.30); TOTAL PROTEIN 6.2 GM/DL (6.4-8.2)
--- NOTE | 2021-04-29 13:44 | REP ---
INDICATION: RLQ skin induration, skin splitting, r/o abscess, cellulitis. COMPARISON: Multiple the latest 04/20/2021 TECHNIQUE: Standard helical technique after the intravenous administration of 100 cc Isovue 370 FINDINGS: There is no change in the lung bases. The degree of ascites is unchanged. Once again, there are cirrhotic features to the liver. There is unchanged splenomegaly. There is cholelithiasis status quo. Pancreas, adrenal glands, and kidneys are unchanged. 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 Scattered borderline mesenteric lymph nodes are suspected but are somewhat obscured by free fluid trapped in the leaves of the small bowel mesentery. Borderline and mildly enlarged lymph nodes again seen in the region of the celiac axis and odilia hepatis. There is no change in the abdominal aorta. Para-aortic lymph nodes are again noted borderline to possibly mildly enlarged. There is no significant change in appearance of the bowel loops. There is no change in appearance of the anterior abdominal wall. Once again, there is evidence of anasarca status quo. There is no particular anterior abdominal wall or subcutaneous abnormality seen over the right lower quadrant where by history, the patient has skin changes. Bone window technique throughout the examination shows no significant change in appearance of the osseous structures. IMPRESSION: There is no significant change compared to the prior exam. Patient has evidence of cirrhosis, splenomegaly, cholelithiasis, ascites, lymphadenopathy, anasarca, and other findings as described above. <Electronically signed by Vinicius Smith > 04/29/21 3220
[2021-04-29 13:49] LABS: ERYTHROCYTE SEDIMENTATION RATE 70 mm/hr (0-30)
[2021-04-29] MEDS ORDERED: HumuLIN R (REGULAR) INSULIN (NovoLIN R) **100U/ML** PER UNIT IV ONE (13:50)
[2021-04-29] MEDS ORDERED: NS 1,000 ML IV ONE (13:50)
[2021-04-29 14:22] LABS: VENOUS BASE EXCESS -3.1 (-2.0-2.0); VENOUS HCO3 21.2 MEQ/L (23.0-27.0); VENOUS O2 SATURATION 94.3 % (60.0-80.0); VENOUS PARTIAL PRESSURE CO2 35.2 mmHg (38.0-50.0); VENOUS PARTIAL PRESSURE O2 72.3 mmHg (30.0-50.0); VENOUS PH 7.398 UNITS (7.330-7.430); VENOUS STANDARD HCO3 21.8 MEQ/L; VENOUS TOTAL CO2 22.3 MEQ/L (24.0-28.0)
[2021-04-29] MEDS ORDERED: MACR100C43 PO (16:54)
[2021-04-29] MEDS ORDERED: HYDR-3713 PO (17:14)
[2021-04-29 17:15] VITALS: BP 148/80
--- NOTE | 2021-04-30 06:41 | ED PDOC ---
Post-Departure Follow-Up dr nilda funes formal report of ct abd/p for fu Samuel Blum MD Apr 30, 2021 06:41
== END 2021-04-29 17:10 | disposition home or self-care (01) ==
LOC: M ED 11:30
DX: N39.0 Urinary tract infection, site not specified (principal); E65 Localized adiposity; R23.8 Other skin changes; K74.60 Unspecified cirrhosis of liver; E11.65 Type 2 diabetes mellitus with hyperglycemia; S31.103A Unspecified open wound of abdominal wall, right lower quadrant without penetration into peritoneal cavity, initial encounter; Y92.9 Unspecified place or not applicable; Y93.9 Activity, unspecified; Y99.9 Unspecified external cause status; R18.8 Other ascites; R16.1 Splenomegaly, not elsewhere classified; K80.20 Calculus of gallbladder without cholecystitis without obstruction; I88.0 Nonspecific mesenteric lymphadenitis; I10 Essential (primary) hypertension; E78.5 Hyperlipidemia, unspecified; Z91.048 Other nonmedicinal substance allergy status; Z79.899 Other long term (current) drug therapy; Z79.4 Long term (current) use of insulin
CPT/HCPCS: 74177; 80047; 80076; 81001; 82010; 82803; 83605; 83690; 85025; 85652; 86140; 87088; 87186; 96361; 96374; 96375; 99284; J2270; J2405; Q9967

== ENCOUNTER → 2021-05-04 | Outpatient (CLI) | payer OTHER ==
[~2021-05-04] MED LIST changes: +CONS10SO3
[2021-05-04 12:57] VITALS: BP 152/68
--- NOTE | 2021-05-04 17:21 | REP ---
INDICATION: ASCITES The patient has a history of ascites COMPARISON: None. TECHNIQUE: The procedure was performed by HIMA Zuniga, under the direct supervision of Dr. Hall The risks and benefits of the procedure were explained to the patient and an informed consent was obtained both verbally and written. Directly prior to the start of the procedure a formal time-out was completed in the procedure room. The largest pocket of fluid was localized in the right lower quadrant using ultrasound guidance. The skin was prepped and draped in a sterile fashion. Ten ML of 1% lidocaine 10 mg/ml was used as a local anesthetic. An 8-[place] multi side-hole catheter was inserted using trocar technique. FINDINGS: 3000 mL of clear yellow fluid were removed during the paracentesis. The patient tolerated the procedure well and there were no immediate complications. After the appropriate amount of monitored convalescence, the patient was discharged from the department. IMPRESSION: Technically successful paracentesis yielding 3000 mL of clear yellow fluid. <Electronically signed by Frannie Wu > 05/04/21 1716 <Electronically signed by Cirilo Hall > 05/04/21 1719
== END ==
LOC: M IRPRO 11:46
PROVIDERS: ATTEND Internal Medicine Gastroenterology
DX: R18.8 Other ascites (principal); K74.69 Other cirrhosis of liver; K75.81 Nonalcoholic steatohepatitis (NASH)

== ENCOUNTER → 2021-06-10 | Outpatient (CLI) | payer OTHER ==
[~2021-06-10] MED LIST changes: +CEFT1INJ5 IM; +FLUO-96 PO; +FLUO10CA18 PO; -FLUO20CA20 PO; +HEPA1INJ6 IV; +INSULANT SC; +MAGN400T2 PO; +METO1TAB32 PO; +METR-265 PO; +NYST1POW9 TOP; -OMEP-221 PO; +OMEP40CA5 PO; +OYST500T11 PO; +TIZA10TA PO; -TIZA4TAB4 PO
[2021-06-10 15:15] VITALS: BP 133/74
== END ==
LOC: M IRPRO 13:41
PROVIDERS: ATTEND Internal Medicine Gastroenterology
DX: R18.8 Other ascites (principal); K75.81 Nonalcoholic steatohepatitis (NASH); K74.69 Other cirrhosis of liver

== ENCOUNTER → 2021-06-16 | Outpatient (CLI) | payer OTHER ==
[~2021-06-16] MED LIST changes: -FLUO-96 PO; +FLUO10CA16 PO; -FLUO10CA18 PO; +FLUO20CA20 PO; +OMEP-221 PO; -OMEP40CA5 PO; -TIZA10TA PO; +TIZA4TAB4 PO
[2021-06-16 15:55] VITALS: BP 113/56
--- NOTE | 2021-06-20 08:44 | REP ---
INDICATION: ASCITES The patient has a history of ascites COMPARISON: None. TECHNIQUE: The procedure was performed by HIMA Zuniga, under the direct supervision of Dr. Hall The risks and benefits of the procedure were explained to the patient and an informed consent was obtained both verbally and written. Directly prior to the start of the procedure a formal time-out was completed in the procedure room. The largest pocket of fluid was localized in the right flank using ultrasound guidance. The skin was prepped and draped in a sterile fashion. Ten ML of 1% lidocaine 10 mg/ml was used as a local anesthetic. An 8-Ivorian multi side-hole catheter was inserted using trocar technique. FINDINGS: The largest pocket of fluid was localized in the right flank using ultrasound guidance. The skin was prepped and draped in a sterile fashion. 10 mL of 1% lidocaine was utilized for local anesthetic. An 8 [place]vorian multi side hole catheter was inserted using trocar technique. 8400 mL of yellow fluid was aspirated. The catheter was removed and a sterile dressing was applied to the insertion site. The patient tolerated the procedure well and there were no immediate complications. After the appropriate amount of monitored convalescence, the patient was discharged from the department. IMPRESSION: Technically successful paracentesis yielding 8400 mL of yellow fluid. <Electronically signed by Frannie Wu > 06/16/21 1630 <Electronically signed by Cirilo Hall > 06/20/21 [id number]
== END ==
LOC: M IRPRO 14:20
PROVIDERS: ATTEND Internal Medicine Gastroenterology
DX: R18.8 Other ascites (principal)

== ENCOUNTER → 2021-06-27 | Outpatient (REF) | payer OTHER | LOC: M SFHCPLAZ 11:48 | PROVIDERS: ATTEND Family Medicine | DX: Z53.9 Procedure and treatment not carried out, unspecified reason (principal) ==

== ENCOUNTER → 2021-06-29 | Outpatient (CLI) | payer OTHER ==
--- NOTE | 2021-06-30 09:21 | REP ---
INDICATION: ABDOMINAL WALL MASS OF PERIUMBILICAL REGION Excessive vomiting. Evaluate for hypertrophic pyloric stenosis. COMPARISON: None. TECHNIQUE: Real time morse scale ultrasound examination using linear high frequency transducer. FINDINGS: Directed ultrasound examination of the periumbilical region demonstrates 5.7 x 2.1 x 5.2 cm ovoid fluid collection with posterior rounded soft tissue component measuring 1.3 x 1.1 x 1.2 cm with evidence for vascularity as well as smaller adjacent cystic area measuring 0.9 x 0.8 x 0.8 cm, and complex hypoechoic area with vascularity measuring 2.0 x 1.2 x 2.3 cm. These findings likely represent small ventral hernias containing fluid and mesenteric fat as well as possible portion of bowel and are similar to the findings on CT which also demonstrated significant ascites (the patient is noted to be dependent on regular paracenteses). IMPRESSION: Findings suggest periumbilical hernias containing mesenteric fat, ascites fluid, and portions of nonobstructed bowel. <Electronically signed by Duane Alberto > 06/30/21 0912
== END ==
LOC: M WHC 13:34
PROVIDERS: ATTEND Student in an Organized Health Care Education/Training Program
DX: R19.05 Periumbilic swelling, mass or lump (principal)

== ENCOUNTER → 2021-06-30 | Outpatient (CLI) | payer OTHER ==
[2021-06-30 14:06] VITALS: BP 106/67
== END ==
LOC: M IRPRO 12:58
PROVIDERS: ATTEND Internal Medicine Gastroenterology
DX: R18.8 Other ascites (principal)

== ENCOUNTER → 2021-07-07 | Outpatient (CLI) | payer OTHER ==
[~2021-07-07] MED LIST changes: +FLUO-96 PO; -FLUO10CA16 PO; +FLUO10CA18 PO; -FLUO20CA20 PO; +TIZA10TA PO; -TIZA4TAB4 PO
[2021-07-07 14:32] VITALS: BP 109/65
== END ==
LOC: M IRPRO 13:06
PROVIDERS: ATTEND Internal Medicine Gastroenterology
DX: R18.8 Other ascites (principal)

== ENCOUNTER → 2021-07-14 | Outpatient (CLI) | payer OTHER ==
[~2021-07-14] MED LIST changes: -OMEP-221 PO; +OMEP40CA5 PO
[2021-07-14 14:40] VITALS: BP 120/86
[2021-07-14 14:46] VITALS: BP 111/55
[2021-07-14 14:47] LABS: HEMOGLOBIN 8.5 g/dl (12.0-15.5); MEAN CORPUSCULAR HEMOGLOBIN 27.2 pg (27.0-33.0); MEAN CORPUSCULAR HGB CONC 31.5 g/dl (32.0-36.5); MEAN CORPUSCULAR VOLUME 86.5 fl (80.0-96.0); PLATELET COUNT, AUTOMATED 163 10^3/uL (150-450); RED BLOOD COUNT 3.12 10^6/uL (4.00-5.40); WHITE BLOOD COUNT 5.2 10^3/uL (4.0-10.0)
[2021-07-14 14:51] VITALS: BP 114/57
[2021-07-14 14:56] VITALS: BP 109/55
[2021-07-14 15:01] VITALS: BP 107/53
== END ==
LOC: M IRPRO 13:06
PROVIDERS: ATTEND Internal Medicine Gastroenterology
DX: R18.8 Other ascites (principal)
CPT/HCPCS: 49083; 85027; 96365; P9047

== ENCOUNTER → 2021-07-22 | Outpatient (CLI) | payer OTHER ==
[2021-07-22 12:48] VITALS: BP 121/58
[2021-07-22 13:06] VITALS: BP 121/56
[2021-07-22 13:16] VITALS: BP 127/57
[2021-07-22 13:33] VITALS: BP 133/63
== END ==
LOC: M IRPRO 11:22
PROVIDERS: ATTEND Internal Medicine Gastroenterology
DX: K75.81 Nonalcoholic steatohepatitis (NASH) (principal); R18.8 Other ascites
CPT/HCPCS: 49083; 96365; P9047

== ENCOUNTER → 2021-07-28 | Outpatient (CLI) | payer OTHER ==
[2021-07-28 13:40] VITALS: BP 119/67
[2021-07-28 15:01] LABS: BASO # 0.1 10^3/uL (0.0-0.2); BASO % 1.1 % (0.0-1.0); EOS # 0.1 10^3/uL (0.0-0.5); EOS % 2.9 % (0.0-3.0); HEMATOCRIT 26.9 % (36.0-47.0); HEMOGLOBIN 8.2 g/dl (12.0-15.5); LYMPH # 0.7 10^3/uL (1.5-5.0); LYMPH % 16.3 % (24.0-44.0); MEAN CORPUSCULAR HEMOGLOBIN 26.5 pg (27.0-33.0); MEAN CORPUSCULAR HGB CONC 30.5 g/dl (32.0-36.5); MEAN CORPUSCULAR VOLUME 87.1 fl (80.0-96.0); MONO # 0.4 10^3/uL (0.0-0.8); MONO % 8.6 % (2.0-8.0); NEUTROPHILS # 3.2 10^3/uL (1.5-8.5); NEUTROPHILS % 70.4 % (36.0-66.0); PLATELET COUNT, AUTOMATED 136 10^3/uL (150-450); RED BLOOD COUNT 3.09 10^6/uL (4.00-5.40); WHITE BLOOD COUNT 4.5 10^3/uL (4.0-10.0)
[2021-07-28 15:11] LABS: INR 1.01; PROTHROMBIN TIME 13.7 SECONDS (12.7-14.5)
[2021-07-28 15:27] LABS: CREATININE FOR GFR 1.11 MG/DL (0.55-1.30); GLOMERULAR FILTRATION RATE 54.3 (>51); POTASSIUM SERUM 4.1 MEQ/L (3.5-5.1)
== END ==
LOC: M IRPRO 13:12
PROVIDERS: ATTEND Internal Medicine Gastroenterology
DX: R18.8 Other ascites (principal); Z53.8 Procedure and treatment not carried out for other reasons

== ENCOUNTER → 2021-08-04 | Outpatient (CLI) | payer OTHER ==
[2021-08-04 13:46] VITALS: BP 131/77
== END ==
LOC: M IRPRO 13:02
PROVIDERS: ATTEND Internal Medicine Gastroenterology
DX: K75.81 Nonalcoholic steatohepatitis (NASH) (principal)

== ENCOUNTER → 2021-08-11 | Outpatient (CLI) | payer OTHER | LOC: M IRPRO 13:35 | PROVIDERS: ATTEND Internal Medicine Gastroenterology | DX: R18.8 Other ascites (principal) ==

== ENCOUNTER → 2021-09-01 | Outpatient (CLI) | payer OTHER | LOC: M IRPRO 13:14 | PROVIDERS: ATTEND Internal Medicine Gastroenterology | DX: R18.8 Other ascites (principal); Z53.8 Procedure and treatment not carried out for other reasons ==

== ENCOUNTER → 2021-09-05 | Outpatient (CLI) | payer OTHER ==
[2021-09-05 14:20] LABS: BILIRUBIN,TOTAL 1.1 MG/DL (0.2-1.0); CALCIUM LEVEL 8.6 MG/DL (8.5-10.1); CHOLESTEROL RISK RATIO 12.357 (<5); CREATININE FOR GFR 1.09 MG/DL (0.55-1.30); GLOMERULAR FILTRATION RATE 55.5 (>51); POTASSIUM SERUM 4.2 MEQ/L (3.5-5.1); TOTAL PROTEIN 6.9 GM/DL (6.4-8.2)
== END ==
LOC: M PLALAB 11:07
PROVIDERS: ATTEND Student in an Organized Health Care Education/Training Program
DX: K75.81 Nonalcoholic steatohepatitis (NASH) (principal)

== ENCOUNTER → 2021-09-05 | Outpatient (REF) | payer OTHER | LOC: M SFHCPLAZ 10:27 | PROVIDERS: ATTEND Family Medicine | DX: K75.81 Nonalcoholic steatohepatitis (NASH) (principal) ==

== ENCOUNTER → 2021-09-08 | Outpatient (CLI) | payer OTHER | LOC: M IRPRO 10:14 | PROVIDERS: ATTEND Internal Medicine Gastroenterology | DX: R18.8 Other ascites (principal) ==

== ENCOUNTER → 2021-09-14 | Outpatient (CLI) | payer OTHER ==
[~2021-09-14] MED LIST changes: +INSUHUMDS
== END ==
LOC: M IRPRO 13:04
PROVIDERS: ATTEND Internal Medicine Gastroenterology
DX: K75.81 Nonalcoholic steatohepatitis (NASH) (principal); Z53.8 Procedure and treatment not carried out for other reasons

== ENCOUNTER 2021-10-24 10:26 | Inpatient (IN) | payer OTHER ==
[~2021-10-24] VITALS: Ht 167.6 cm; Wt 73.1 kg
[2021-10-24] VITALS (8 sets, daily range): BP systolic 109–141; BP diastolic 56–67
[~2021-10-24 10:26] MED LIST changes: -INSUHUMDS
[2021-10-24] MEDS ORDERED: NS 500 ML IV ONE (12:35)
[2021-10-24] MEDS ORDERED: ONDANSETRON 4MG/2ML VIAL IV ONE ×2 (12:35→16:15)
[2021-10-24 13:16] LABS: BASO % 0.4 % (0.0-1.0); EOS # 0.1 10^3/uL (0.0-0.5); EOS % 1.5 % (0.0-3.0); HEMATOCRIT 32.8 % (36.0-47.0); HEMOGLOBIN 10.4 g/dl (12.0-15.5); LYMPH # 0.5 10^3/uL (1.5-5.0); LYMPH % 9.9 % (24.0-44.0); MEAN CORPUSCULAR HEMOGLOBIN 29.4 pg (27.0-33.0); MEAN CORPUSCULAR HGB CONC 31.7 g/dl (32.0-36.5); MEAN CORPUSCULAR VOLUME 92.7 fl (80.0-96.0); MONO # 0.5 10^3/uL (0.0-0.8); MONO % 8.8 % (2.0-8.0); NEUTROPHILS # 4.2 10^3/uL (1.5-8.5); NEUTROPHILS % 78.5 % (36.0-66.0); RED BLOOD COUNT 3.54 10^6/uL (4.00-5.40); WHITE BLOOD COUNT 5.4 10^3/uL (4.0-10.0)
[2021-10-24 13:43] LABS: CK-MB VALUE MASS 1.7 NG/ML (<3.6); MB/CK RELATIVE INDEX 3.09 (< OR =4)
[2021-10-24 13:43] LABS: PLATELET COUNT, AUTOMATED 87 10^3/uL (150-450)
[2021-10-24 13:52] LABS: ALBUMIN 2.2 GM/DL (3.2-5.2); BILIRUBIN,DIRECT 0.9 MG/DL (0.0-0.2); BILIRUBIN,TOTAL 1.3 MG/DL (0.2-1.0); CALCIUM LEVEL 9.6 MG/DL (8.5-10.1); CREATININE FOR GFR 1.7 MG/DL (0.55-1.30); GLOMERULAR FILTRATION RATE 33.2 (>51); MAGNESIUM LEVEL 2.3 MG/DL (1.8-2.4); THYROID STIMULATING HORMONE 2.47 uIU/ML (0.358-3.740); TOTAL PROTEIN 7.4 GM/DL (6.4-8.2)
[2021-10-24] MEDS ORDERED: HumuLIN R (REGULAR) INSULIN (NovoLIN R) **100U/ML** PER UNIT IV ONE (14:00)
[2021-10-24] MEDS ORDERED: cefTRIAXone SOD 2 GM in D5W MINI-BAG PLUS 50 ML IV ONE (14:10)
[2021-10-24] MEDS ORDERED: NS 1,780 ML in IV 1 EA IV ONE (14:10)
[2021-10-24] MEDS ORDERED: ISOVUE-370 76% 100ML VIAL As Ordered ONE (14:13)
[2021-10-24 14:22] LABS: RSV AMPLIFICATION NEGATIVE (NEGATIVE)
[2021-10-24 14:32] LABS: VENOUS BASE EXCESS 1.6 (-2.0-2.0); VENOUS HCO3 27.5 MEQ/L (23.0-27.0); VENOUS O2 SATURATION 61.4 % (60.0-80.0); VENOUS PARTIAL PRESSURE CO2 49.3 mmHg (38.0-50.0); VENOUS PARTIAL PRESSURE O2 30.4 mmHg (30.0-50.0); VENOUS PH 7.365 UNITS (7.330-7.430); VENOUS STANDARD HCO3 25.1 MEQ/L; VENOUS TOTAL CO2 29.1 MEQ/L (24.0-28.0)
[2021-10-24 14:48] LABS: ACETONE/KETONE 1.3 MG/DL (<2.81); PHOSPHORUS LEVEL 3.5 MG/DL (2.5-4.9)
[2021-10-24 15:03] LABS: CK-MB VALUE MASS 1.6 NG/ML (<3.6); MB/CK RELATIVE INDEX 3.08 (< OR =4)
[2021-10-24] MEDS ORDERED: MORPHINE 4 MG/ML 1ML VIAL/SYRINGE IV ONE (15:10)
[2021-10-24] MEDS ORDERED: OMEP40CA5 PO (15:12)
[2021-10-24] MEDS ORDERED: CYCL5TAB PO (15:12)
[2021-10-24] MEDS ORDERED: CHOL4POW14 PO (15:12)
[2021-10-24] MEDS ORDERED: INSULIN REGULAR IN 0.9 % NACL 100 UNIT in IV 1 EA IV SCH ×2 (15:40)
[2021-10-24] MEDS ORDERED: ONDANSETRON 4MG ORAL DISINTEGRATING TAB SL PRN (16:05)
[2021-10-24] MEDS ORDERED: TORS20TA2 PO (16:52)
[2021-10-24] MEDS ORDERED: HOME MED LIST COMPLETE! XX SCH (16:55)
[2021-10-24 16:57] LABS: CALCIUM LEVEL 9.2 MG/DL (8.5-10.1); CREATININE FOR GFR 1.44 MG/DL (0.55-1.30); GLOMERULAR FILTRATION RATE 40.2 (>51); POTASSIUM SERUM 3.5 MEQ/L (3.5-5.1)
[2021-10-24 17:40] LABS: ACETONE/KETONE 1.17 MG/DL (<2.81)
[2021-10-24] MEDS ORDERED: HEPARIN SOD (PORCINE) 5000UNITS/ML 1ML VIAL/SYRINGE SC SCH (17:50)
[2021-10-24] MEDS: PANTOPRAZOLE 40MG VIAL IV SCH (17:55)
[2021-10-24] MEDS: KCL 20MEQ IN 0.45NS 1000ML 1,000 ML IV SCH ×3 (17:55→20:47)
[2021-10-24] MEDS: INSULIN IV RATE CHANGE DOCUMENTATION ML/HR XX SCH ×2 (19:05→20:08)
[2021-10-24 19:25] LABS: HEMOGLOBIN A1c > 14.0 %
[2021-10-24 20:07] LABS: HEMATOCRIT 27.7 % (36.0-47.0); HEMOGLOBIN 9.4 g/dl (12.0-15.5); MEAN CORPUSCULAR HEMOGLOBIN 29.4 pg (27.0-33.0); MEAN CORPUSCULAR HGB CONC 33.9 g/dl (32.0-36.5); MEAN CORPUSCULAR VOLUME 86.6 fl (80.0-96.0); WHITE BLOOD COUNT 5.7 10^3/uL (4.0-10.0)
[2021-10-24 20:11] LABS: PLATELET COUNT, AUTOMATED 83 10^3/uL (150-450)
[2021-10-24 20:25] LABS: CALCIUM LEVEL 8.5 MG/DL (8.5-10.1); CREATININE FOR GFR 1.26 MG/DL (0.55-1.30); GLOMERULAR FILTRATION RATE 46.9 (>51); POTASSIUM SERUM 3.6 MEQ/L (3.5-5.1)
[2021-10-24] MEDS ORDERED: LEVEMIR (INSULIN DETEMIR) 1 UNITS/0.01ML SC ONE (22:00)
[2021-10-24] MEDS: ONDANSETRON 4MG/2ML VIAL IV SCH (22:12)
[2021-10-24 23:11] LABS: HEMATOCRIT 28.9 % (36.0-47.0); MEAN CORPUSCULAR HEMOGLOBIN 30.1 pg (27.0-33.0); MEAN CORPUSCULAR HGB CONC 34.6 g/dl (32.0-36.5); RED BLOOD COUNT 3.32 10^6/uL (4.00-5.40); WHITE BLOOD COUNT 5.9 10^3/uL (4.0-10.0)
[2021-10-24 23:12] LABS: PLATELET COUNT, AUTOMATED 86 10^3/uL (150-450)
[2021-10-24 23:29] LABS: CALCIUM LEVEL 8.8 MG/DL (8.5-10.1); CREATININE FOR GFR 1.13 MG/DL (0.55-1.30); GLOMERULAR FILTRATION RATE 53.2 (>51); POTASSIUM SERUM 3.7 MEQ/L (3.5-5.1)
[2021-10-25] VITALS (13 sets, daily range): BP systolic 95–142; BP diastolic 48–66
[2021-10-25 03:32] LABS: CALCIUM LEVEL 8.9 MG/DL (8.5-10.1); CREATININE FOR GFR 1.24 MG/DL (0.55-1.30); GLOMERULAR FILTRATION RATE 47.8 (>51); POTASSIUM SERUM 3.8 MEQ/L (3.5-5.1)
[2021-10-25] MEDS ORDERED: DEXTROSE 50% 50 ML SYRINGE IV PRN (04:20)
[2021-10-25] MEDS ORDERED: GLUCOSE 4GM CHEW TABLET PO PRN (04:20)
[2021-10-25] MEDS ORDERED: GLUCAGON INJ 1MG VIAL SC PRN (04:20)
[2021-10-25] MEDS: ONDANSETRON 4MG/2ML VIAL IV SCH (04:21)
[2021-10-25] MEDS ORDERED: ONDANSETRON 4MG/2ML VIAL IV PRN (07:15)
[2021-10-25] MEDS: HumaLOG INSULIN (NovoLOG) PER UNIT SC SCH ×3 (07:30→17:07)
[2021-10-25 08:18] LABS: HEMATOCRIT 30.2 % (36.0-47.0); HEMOGLOBIN 10.2 g/dl (12.0-15.5); MEAN CORPUSCULAR HEMOGLOBIN 29.9 pg (27.0-33.0); MEAN CORPUSCULAR HGB CONC 33.8 g/dl (32.0-36.5); MEAN CORPUSCULAR VOLUME 88.6 fl (80.0-96.0); RED BLOOD COUNT 3.41 10^6/uL (4.00-5.40); WHITE BLOOD COUNT 6.1 10^3/uL (4.0-10.0)
[2021-10-25 08:19] LABS: PLATELET COUNT, AUTOMATED 79 10^3/uL (150-450)
[2021-10-25 08:44] LABS: CALCIUM LEVEL 9.1 MG/DL (8.5-10.1); CREATININE FOR GFR 1.24 MG/DL (0.55-1.30); GLOMERULAR FILTRATION RATE 47.8 (>51); POTASSIUM SERUM 4.5 MEQ/L (3.5-5.1)
[2021-10-25] MEDS: PANTOPRAZOLE 40MG VIAL IV SCH (09:09)
[2021-10-25] MEDS ORDERED: ACETAMINOPHEN TAB 650MG DOSE (2X325MG) PO PRN (10:40)
[2021-10-25 12:04] LABS: CALCIUM LEVEL 8.6 MG/DL (8.5-10.1); CREATININE FOR GFR 1.45 MG/DL (0.55-1.30); GLOMERULAR FILTRATION RATE 39.9 (>51); POTASSIUM SERUM 4.8 MEQ/L (3.5-5.1)
[2021-10-25] MEDS: NS 1,000 ML IV SCH ×2 (13:00→23:45)
[2021-10-25] MEDS ORDERED: CYCLOBENZAPRINE 5MG TABLET PO PRN (14:45)
[2021-10-25] MEDS ORDERED: cefTRIAXone SOD 1 GM in D5W MINI-BAG PLUS 50 ML IV SCH (15:00)
[2021-10-25] MEDS: CHOLESTYRAMINE 4 GM PWD PKT PO SCH (20:07)
[2021-10-25] MEDS: busPIRone 10 MG TAB PO SCH (20:08)
[2021-10-25] MEDS: OMEPRAZOLE 20MG CAP PO SCH (20:08)
[2021-10-25] MEDS ORDERED: NORTRIPTYLINE 25 MG CAP PO SCH (21:00)
[2021-10-25] MEDS ORDERED: LEVEMIR (INSULIN DETEMIR) 1 UNITS/0.01ML SC SCH (21:00)
[2021-10-25] MEDS ORDERED: HumaLOG INSULIN (NovoLOG) PER UNIT SC SCH (21:00)
[2021-10-26] VITALS: BP 128/61
[2021-10-26 04:00] VITALS: BP 139/63
[2021-10-26 05:32] LABS: HEMATOCRIT 28.3 % (36.0-47.0); HEMOGLOBIN 9.6 g/dl (12.0-15.5); MEAN CORPUSCULAR HEMOGLOBIN 30.2 pg (27.0-33.0); MEAN CORPUSCULAR HGB CONC 33.9 g/dl (32.0-36.5); RED BLOOD COUNT 3.18 10^6/uL (4.00-5.40); WHITE BLOOD COUNT 3.6 10^3/uL (4.0-10.0)
[2021-10-26 05:35] LABS: PLATELET COUNT, AUTOMATED 70 10^3/uL (150-450)
[2021-10-26 05:54] LABS: CALCIUM LEVEL 8.7 MG/DL (8.5-10.1); CREATININE FOR GFR 1.1 MG/DL (0.55-1.30); GLOMERULAR FILTRATION RATE 54.9 (>51); POTASSIUM SERUM 4.3 MEQ/L (3.5-5.1)
[2021-10-26 07:50] VITALS: BP 123/60
[2021-10-26] MEDS: busPIRone 10 MG TAB PO SCH (08:42)
[2021-10-26] MEDS: OMEPRAZOLE 20MG CAP PO SCH (08:42)
[2021-10-26] MEDS: CHOLESTYRAMINE 4 GM PWD PKT PO SCH (08:42)
[2021-10-26] MEDS: HumaLOG INSULIN (NovoLOG) PER UNIT SC SCH ×2 (08:43→12:49)
[2021-10-26] MEDS: NS 1,000 ML IV SCH (08:44)
[2021-10-26] MEDS ORDERED: PANTOPRAZOLE 40MG TAB (PROTONIX) PO SCH (09:00)
[2021-10-26] MEDS ORDERED: FERROUS SULFATE 325MG TAB PO SCH (09:00)
[2021-10-26] MEDS ORDERED: CEFDINIR 300 MG CAP (OMNICEF) PO SCH (09:00)
[2021-10-26] MEDS ORDERED: CEFD300CAP PO (13:11)
[2021-10-26] MEDS ORDERED: LEVEMIR (INSULIN DETEMIR) 1 UNITS/0.01ML SC SCH (21:00)
== END 2021-10-26 16:43 | disposition home or self-care (01) | DRG 420 ==
LOC: M ED 10:26 → M ED INP 15:38 → ENRESERV 16:12 → M ICU 16:51
PROVIDERS: ADMIT Family Medicine; ATTEND Internal Medicine
DX: E11.00 Type 2 diabetes mellitus with hyperosmolarity without nonketotic hyperglycemic-hyperosmolar coma (NKHHC) (principal); B95.61 Methicillin susceptible Staphylococcus aureus infection as the cause of diseases classified elsewhere; B96.1 Klebsiella pneumoniae [K. pneumoniae] as the cause of diseases classified elsewhere; D69.59 Other secondary thrombocytopenia; K75.81 Nonalcoholic steatohepatitis (NASH); F32.A Depression, unspecified; I10 Essential (primary) hypertension; E78.5 Hyperlipidemia, unspecified; D64.9 Anemia, unspecified; H54.62 Unqualified visual loss, left eye, normal vision right eye; M19.90 Unspecified osteoarthritis, unspecified site; N39.0 Urinary tract infection, site not specified; K21.9 Gastro-esophageal reflux disease without esophagitis; D50.9 Iron deficiency anemia, unspecified; Z79.4 Long term (current) use of insulin; Z79.899 Other long term (current) drug therapy; Z91.048 Other nonmedicinal substance allergy status; Z91.19 Patient's noncompliance with other medical treatment and regimen; K74.60 Unspecified cirrhosis of liver

== ENCOUNTER 2021-11-02 12:41 | Emergency (ER) | payer OTHER ==
[~2021-11-02] VITALS: Ht 162.6 cm; Wt 83.6 kg
[~2021-11-02 12:41] MED LIST changes: +CEFD300CAP PO; +CHOL4POW14 PO; +CYCL5TAB PO; +TORS20TA2 PO
[2021-11-02 15:34] VITALS: BP 128/62
== END 2021-11-02 15:32 | disposition home or self-care (01) ==
LOC: M ED 12:41
DX: T83.091A Other mechanical complication of indwelling urethral catheter, initial encounter (principal); R18.8 Other ascites; K76.9 Liver disease, unspecified; R16.1 Splenomegaly, not elsewhere classified; E11.9 Type 2 diabetes mellitus without complications; I10 Essential (primary) hypertension; E78.5 Hyperlipidemia, unspecified; Z79.4 Long term (current) use of insulin; Z79.899 Other long term (current) drug therapy; Z91.048 Other nonmedicinal substance allergy status

== ENCOUNTER → 2021-11-11 | Outpatient (CLI) | payer OTHER ==
[~2021-11-11] MED LIST changes: +GLIP5TAB8 PO; +LACT10SO3 PO; +LANTINJ4 SC; +METO1TAB87 PO; +SPIR-10 PO
[2021-11-11 15:43] LABS: HEMATOCRIT 28.1 % (36.0-47.0); MEAN CORPUSCULAR HEMOGLOBIN 29.8 pg (27.0-33.0); PLATELET COUNT, AUTOMATED 103 10^3/uL (150-450); RED BLOOD COUNT 3.02 10^6/uL (4.00-5.40); WHITE BLOOD COUNT 3.9 10^3/uL (4.0-10.0)
[2021-11-11 15:55] LABS: INR 0.94
[2021-11-11 15:56] LABS: BLOOD UREA NITROGEN 41 MG/DL (7-18); CALCIUM LEVEL 8.7 MG/DL (8.5-10.1); CARBON DIOXIDE LEVEL 21 MEQ/L (21-32); CHLORIDE LEVEL 112 MEQ/L (98-107); CREATININE FOR GFR 0.99 MG/DL (0.55-1.30); GLOMERULAR FILTRATION RATE > 60.0 (>51); GLUCOSE, FASTING 137 MG/DL (70-100); POTASSIUM SERUM 5.5 MEQ/L (3.5-5.1); SODIUM LEVEL 138 MEQ/L (136-145)
== END ==
LOC: M PLALAB 13:49
PROVIDERS: ATTEND Student in an Organized Health Care Education/Training Program
DX: Z01.818 Encounter for other preprocedural examination (principal); Z20.822 Contact with and (suspected) exposure to COVID-19

== ENCOUNTER → 2021-11-11 | Outpatient (REF) | payer OTHER | LOC: M SFHCPLAZ 13:35 | PROVIDERS: ATTEND Family Medicine | DX: Z01.818 Encounter for other preprocedural examination (principal) ==

== ENCOUNTER → 2021-11-15 | Outpatient (CLI) | payer OTHER | LOC: M IRPRO 14:32 | PROVIDERS: ATTEND Internal Medicine Gastroenterology | DX: R18.8 Other ascites (principal); Z53.29 Procedure and treatment not carried out because of patient's decision for other reasons ==

== ENCOUNTER → 2021-11-15 | Outpatient (CLI) | payer OTHER ==
[2021-11-15 15:28] LABS: CALCIUM LEVEL 8.6 MG/DL (8.5-10.1); CREATININE FOR GFR 1.08 MG/DL (0.55-1.30); GLOMERULAR FILTRATION RATE 56.1 (>51); POTASSIUM SERUM 5.7 MEQ/L (3.5-5.1)
== END ==
LOC: M PLALAB 13:10
PROVIDERS: ATTEND Student in an Organized Health Care Education/Training Program
DX: E87.5 Hyperkalemia (principal)

== ENCOUNTER → 2021-11-18 | Outpatient (CLI) | payer OTHER ==
[2021-11-18 16:54] LABS: CALCIUM LEVEL 8.9 MG/DL (8.5-10.1); CREATININE FOR GFR 1.09 MG/DL (0.55-1.30); GLOMERULAR FILTRATION RATE 55.5 (>51); POTASSIUM SERUM 3.7 MEQ/L (3.5-5.1)
== END ==
LOC: M PLALAB 12:49
PROVIDERS: ATTEND Student in an Organized Health Care Education/Training Program
DX: E87.5 Hyperkalemia (principal)

== ENCOUNTER → 2021-12-05 | Outpatient (CLI) | payer OTHER ==
[~2021-12-05] MED LIST changes: +XIFA550T PO
== END ==
LOC: M IRPRO 11:16
PROVIDERS: ATTEND Internal Medicine Gastroenterology
DX: K75.81 Nonalcoholic steatohepatitis (NASH) (principal)

== ENCOUNTER → 2022-01-16 | Outpatient (CLI) | payer OTHER ==
[~2022-01-16] MED LIST changes: +CHOL378P3 PO; -CHOL4POW14 PO; +JARD1TAB PO; +LACT20EL PO
== END ==
LOC: M IRPRO 13:18
PROVIDERS: ATTEND Internal Medicine Gastroenterology
DX: R18.8 Other ascites (principal)

== ENCOUNTER 2022-01-22 11:31 | Inpatient (IN) | payer OTHER ==
[~2022-01-22] VITALS: Ht 167.6 cm; Wt 109.6 kg
[~2022-01-22 11:31] MED LIST changes: +LEVO1TAB40 PO; -LEVO750T13 PO
[2022-01-22] MEDS ORDERED: FUROSEMIDE 100MG/10ML VIAL (J1940) IV ONE (12:10)
[2022-01-22] MEDS ORDERED: KETOROLAC 30 MG/ML 1ML VIAL IV ONE (12:10)
[2022-01-22 12:15] LABS: BASO % 0.4 % (0.0-1.0); EOS # 0.1 10^3/uL (0.0-0.5); EOS % 2.9 % (0.0-3.0); HEMATOCRIT 24.8 % (36.0-47.0); HEMOGLOBIN 7.7 g/dl (12.0-15.5); LYMPH # 0.5 10^3/uL (1.5-5.0); LYMPH % 10.7 % (24.0-44.0); MEAN CORPUSCULAR HEMOGLOBIN 29.5 pg (27.0-33.0); MONO # 0.4 10^3/uL (0.0-0.8); MONO % 8.6 % (2.0-8.0); NEUTROPHILS # 3.5 10^3/uL (1.5-8.5); NEUTROPHILS % 76.7 % (36.0-66.0); RED BLOOD COUNT 2.61 10^6/uL (4.00-5.40); WHITE BLOOD COUNT 4.6 10^3/uL (4.0-10.0)
[2022-01-22 12:21] LABS: PLATELET COUNT, AUTOMATED 94 10^3/uL (150-450)
[2022-01-22 12:49] LABS: ALBUMIN 2.4 GM/DL (3.2-5.2); BILIRUBIN,DIRECT 0.5 MG/DL (0.0-0.2); BILIRUBIN,TOTAL 0.9 MG/DL (0.2-1.0); CALCIUM LEVEL 8.3 MG/DL (8.5-10.1); CREATININE FOR GFR 3.38 MG/DL (0.55-1.30); POTASSIUM SERUM 4.5 MEQ/L (3.5-5.1); THYROID STIMULATING HORMONE 4.96 uIU/ML (0.358-3.740); TOTAL PROTEIN 7.3 GM/DL (6.4-8.2)
[2022-01-22] MEDS ORDERED: BASA100I SC ×2 (14:22→15:56)
[2022-01-22 14:29] LABS: RSV AMPLIFICATION NEGATIVE (NEGATIVE)
[2022-01-22 14:56] LABS: APPEARANCE, URINE CLOUDY (CLEAR); BACTERIA, URINE AUTO 1+ (NEGATIVE); BILIRUBIN, URINE AUTO NEGATIVE (NEGATIVE); BLOOD, URINE BLOOD 3+ (NEGATIVE); COLOR, URINE YELLOW (YELLOW); GLUCOSE, URINE (UA) AUTO NEGATIVE (NEGATIVE); KETONE, URINE AUTO NEGATIVE (NEGATIVE); LEUKOCYTE ESTERASE, URINE AUTO 3+ (NEGATIVE); MUCUS, URINE SMALL (NEGATIVE); NITRITE, URINE AUTO NEGATIVE (NEGATIVE); PROTEIN, URINE AUTO 1+ mg/dL (NEGATIVE); RBC, URINE AUTO 54 /HPF (0-3); SPECIFIC GRAVITY URINE AUTO 1.009 (1.002-1.035); SQUAMOUS EPITHELIAL CELL UR AU 11 /HPF (0-6); UROBILINOGEN, URINE AUTO 0.2 mg/dL (0.0-2.0); WBC, URINE AUTO 117 /HPF (0-3)
[2022-01-22 15:00] LABS: TOTAL PROTEIN,RANDOM URINE 48.6 MG/DL (0.0-12.0)
[2022-01-22] MEDS: LIDOCAINE 5% (LIDODERM) PATCH TD SCH (15:30)
[2022-01-22 15:40] LABS: INR 1.18; PROTHROMBIN TIME 15.4 SECONDS (12.7-14.5)
[2022-01-22] MEDS ORDERED: HOME MED LIST COMPLETE! XX SCH (16:00)
[2022-01-22 16:30] VITALS: BP 149/82
[2022-01-22] MEDS ORDERED: DEXTROSE 50% 50 ML SYRINGE IV PRN (17:10)
[2022-01-22] MEDS ORDERED: GLUCAGON INJ 1MG VIAL SC PRN (17:10)
[2022-01-22] MEDS ORDERED: GLUCOSE 4GM CHEW TABLET PO PRN (17:10)
[2022-01-22] MEDS: INSULIN LISPRO (NovoLOG) PER UNIT SC SCH ×2 (18:02→20:14)
[2022-01-22] MEDS: ACETAMINOPHEN TAB 650MG DOSE (2X325MG) PO PRN (18:04)
[2022-01-22] MEDS ORDERED: ANALGESIC BALM CRM 3OZ TOP PRN (18:15)
[2022-01-22] MEDS ORDERED: FUROSEMIDE 40MG/4ML VIAL (J1940) IV ONE (20:00)
[2022-01-22 20:10] LABS: HEMATOCRIT 21.6 % (36.0-47.0); MEAN CORPUSCULAR HEMOGLOBIN 30.4 pg (27.0-33.0); MEAN CORPUSCULAR HGB CONC 31.9 g/dl (32.0-36.5); MEAN CORPUSCULAR VOLUME 95.2 fl (80.0-96.0); RED BLOOD COUNT 2.27 10^6/uL (4.00-5.40); WHITE BLOOD COUNT 3.4 10^3/uL (4.0-10.0)
[2022-01-22 20:13] LABS: HEMOGLOBIN 6.9 g/dl (12.0-15.5); PLATELET COUNT, AUTOMATED 81 10^3/uL (150-450)
[2022-01-22] MEDS: NORTRIPTYLINE 25 MG CAP PO SCH (20:26)
[2022-01-22] MEDS: **NOTE PATIENT COMMENT** MISC XX SCH (20:26)
[2022-01-22] MEDS: OMEPRAZOLE 20MG CAP PO SCH (20:26)
[2022-01-22] MEDS: CYCLOBENZAPRINE 5MG TABLET PO SCH (20:26)
[2022-01-22] MEDS: busPIRone 10 MG TAB PO SCH (20:26)
[2022-01-22] MEDS: LEVEMIR (INSULIN DETEMIR) 1 UNITS/0.01ML SC SCH (21:00)
[2022-01-22 22:00] VITALS: BP 110/78
[2022-01-22 22:33] VITALS: BP 110/78
[2022-01-22 22:48] VITALS: BP 99/52
[2022-01-22 23:33] VITALS: BP 96/50
[2022-01-23] VITALS (13 sets, daily range): BP systolic 104–134; BP diastolic 50–60
[2022-01-23 07:14] LABS: HEMATOCRIT 25.9 % (36.0-47.0); HEMOGLOBIN 8.4 g/dl (12.0-15.5); MEAN CORPUSCULAR HGB CONC 32.4 g/dl (32.0-36.5); MEAN CORPUSCULAR VOLUME 92.5 fl (80.0-96.0); WHITE BLOOD COUNT 3.6 10^3/uL (4.0-10.0)
[2022-01-23 07:16] LABS: PLATELET COUNT, AUTOMATED 83 10^3/uL (150-450)
[2022-01-23 07:35] LABS: CHOLESTEROL RISK RATIO 7.3 (<5); CREATININE FOR GFR 3.32 MG/DL (0.55-1.30); GLOMERULAR FILTRATION RATE 15.3 (>51); PERCENT SATURATION 93.2 % (13.2-45.0); POTASSIUM SERUM 4.7 MEQ/L (3.5-5.1)
[2022-01-23] MEDS ORDERED: FUROSEMIDE 40MG/4ML VIAL (J1940) IV ONE (08:00)
[2022-01-23] MEDS: LEVEMIR (INSULIN DETEMIR) 1 UNITS/0.01ML SC SCH ×2 (09:02→22:17)
[2022-01-23] MEDS: INSULIN LISPRO (NovoLOG) PER UNIT SC SCH ×5 (09:03→21:00)
[2022-01-23] MEDS: LACTULOSE 20 GM/30 ML SYRUP UD PO SCH (09:04)
[2022-01-23] MEDS: LIDOCAINE 5% (LIDODERM) PATCH TD SCH (09:04)
[2022-01-23] MEDS: busPIRone 10 MG TAB PO SCH ×2 (09:05→22:15)
[2022-01-23] MEDS: OMEPRAZOLE 20MG CAP PO SCH ×2 (09:05→22:16)
[2022-01-23] MEDS: SODIUM BICARBONATE 325 MG TAB PO SCH ×2 (09:05→22:15)
[2022-01-23] MEDS: ACETAMINOPHEN TAB 650MG DOSE (2X325MG) PO PRN (09:05)
[2022-01-23] MEDS: cefTRIAXone SOD 1 GM in D5W MINI-BAG PLUS 50 ML IV SCH ×2 (09:06→22:17)
[2022-01-23] MEDS ORDERED: HYDROMORPHONE HCL 0.5 MG/ 0.5 ML SYRINGE (J1170 PER 1) IV PRN (10:30)
[2022-01-23] MEDS: HYDROMORPHONE HCL 0.5 MG/ 0.5 ML SYRINGE (J1170 PER 1) IV PRN ×2 (10:51→15:53)
[2022-01-23 13:35] LABS: HEPATITIS B CORE ANTIBODY IGM NEGATIVE (NEGATIVE); HEPATITIS B SURFACE ANTIBODY NEGATIVE (POSITIVE); HEPATITIS B SURFACE ANTIGEN NEGATIVE (NEGATIVE); HEPATITIS C VIRUS ABY INDEX 0.2 INDEX (<0.8)
[2022-01-23] MEDS: **NOTE PATIENT COMMENT** MISC XX SCH (21:00)
[2022-01-23] MEDS: NORTRIPTYLINE 25 MG CAP PO SCH (22:15)
[2022-01-23] MEDS: CYCLOBENZAPRINE 5MG TABLET PO SCH (22:16)
[2022-01-24] MEDS ORDERED: SODIUM CHLORIDE 0.9% 1000ML IV PRN (01:00)
[2022-01-24] MEDS: ACETAMINOPHEN TAB 650MG DOSE (2X325MG) PO PRN (03:24)
[2022-01-24 05:35] VITALS: BP 135/53
[2022-01-24] MEDS: LEVEMIR (INSULIN DETEMIR) 1 UNITS/0.01ML SC SCH ×2 (05:55→20:37)
[2022-01-24] MEDS: INSULIN LISPRO (NovoLOG) PER UNIT SC SCH ×4 (05:55→20:15)
[2022-01-24] MEDS: LACTULOSE 20 GM/30 ML SYRUP UD PO SCH (06:31)
[2022-01-24] MEDS: busPIRone 10 MG TAB PO SCH ×2 (06:32→20:36)
[2022-01-24] MEDS: LIDOCAINE 5% (LIDODERM) PATCH TD SCH (06:33)
[2022-01-24] MEDS: SODIUM BICARBONATE 325 MG TAB PO SCH (06:33)
[2022-01-24] MEDS: OMEPRAZOLE 20MG CAP PO SCH ×2 (06:33→20:37)
[2022-01-24] MEDS: cefTRIAXone SOD 1 GM in D5W MINI-BAG PLUS 50 ML IV SCH ×2 (06:35→20:35)
[2022-01-24] MEDS ORDERED: LIDOCAINE 1% MDV 20ML VIAL As Ordered ONE ×2 (06:58→08:16)
[2022-01-24] MEDS ORDERED: fentaNYL 100 MCG/2 ML INJECTION As Ordered ONE ×2 (07:40→08:21)
[2022-01-24] MEDS ORDERED: MIDAZOLAM INJ 2MG/2ML VIAL (J2250 PER 1MG) As Ordered ONE (07:41)
[2022-01-24] MEDS: DARBEPOETIN 100 MCG/0.5 ML *DIALYSIS* SYRINGE (J0882) IV SCH (10:38)
[2022-01-24] MEDS: HYDROMORPHONE HCL 0.5 MG/ 0.5 ML SYRINGE (J1170 PER 1) IV PRN ×3 (13:31→20:48)
[2022-01-24 14:00] VITALS: BP 146/63
[2022-01-24] MEDS ORDERED: HYDROMORPHONE HCL 0.5 MG/ 0.5 ML SYRINGE (J1170 PER 1) IV ONE (17:30)
[2022-01-24] MEDS: CYCLOBENZAPRINE 5MG TABLET PO SCH (20:36)
[2022-01-24] MEDS: **NOTE PATIENT COMMENT** MISC XX SCH (20:38)
[2022-01-24] MEDS: NORTRIPTYLINE 25 MG CAP PO SCH (20:38)
[2022-01-24 20:50] VITALS: BP 117/45
[2022-01-24] MEDS ORDERED: ONDANSETRON 4MG 2ML VIAL IV PRN (22:40)
[2022-01-25 05:28] VITALS: BP 106/50
[2022-01-25 06:04] LABS: HEMATOCRIT 25.9 % (36.0-47.0); HEMOGLOBIN 8.2 g/dl (12.0-15.5); MEAN CORPUSCULAR HEMOGLOBIN 29.5 pg (27.0-33.0); MEAN CORPUSCULAR HGB CONC 31.7 g/dl (32.0-36.5); MEAN CORPUSCULAR VOLUME 93.2 fl (80.0-96.0); RED BLOOD COUNT 2.78 10^6/uL (4.00-5.40); WHITE BLOOD COUNT 3.8 10^3/uL (4.0-10.0)
[2022-01-25 06:06] LABS: PLATELET COUNT, AUTOMATED 89 10^3/uL (150-450)
[2022-01-25 06:37] LABS: CALCIUM LEVEL 7.9 MG/DL (8.5-10.1); CREATININE FOR GFR 2.66 MG/DL (0.55-1.30); GLOMERULAR FILTRATION RATE 19.8 (>51); POTASSIUM SERUM 4.6 MEQ/L (3.5-5.1)
[2022-01-25] MEDS: HYDROMORPHONE HCL 0.5 MG/ 0.5 ML SYRINGE (J1170 PER 1) IV PRN ×3 (09:33→20:09)
[2022-01-25] MEDS: LEVEMIR (INSULIN DETEMIR) 1 UNITS/0.01ML SC SCH ×2 (09:33→20:07)
[2022-01-25] MEDS: INSULIN LISPRO (NovoLOG) PER UNIT SC SCH ×4 (09:34→20:06)
[2022-01-25] MEDS: LACTULOSE 20 GM/30 ML SYRUP UD PO SCH (09:34)
[2022-01-25] MEDS: busPIRone 10 MG TAB PO SCH ×2 (09:34→20:08)
[2022-01-25] MEDS: OMEPRAZOLE 20MG CAP PO SCH ×2 (09:34→20:07)
[2022-01-25] MEDS: LIDOCAINE 5% (LIDODERM) PATCH TD SCH (09:35)
[2022-01-25] MEDS: cefTRIAXone SOD 1 GM in D5W MINI-BAG PLUS 50 ML IV SCH ×2 (09:35→20:07)
[2022-01-25] MEDS ORDERED: FUROSEMIDE 100MG/10ML VIAL (J1940) IV ONE (12:35)
[2022-01-25 12:54] VITALS: BP 105/64
[2022-01-25 12:58] VITALS: BP 122/68
[2022-01-25 14:00] VITALS: BP 134/59
[2022-01-25] MEDS: CYCLOBENZAPRINE 5MG TABLET PO SCH (20:08)
[2022-01-25] MEDS: NORTRIPTYLINE 25 MG CAP PO SCH (20:08)
[2022-01-25] MEDS: **NOTE PATIENT COMMENT** MISC XX SCH (20:08)
[2022-01-25 22:00] VITALS: BP 109/50
[2022-01-26] MEDS: HYDROMORPHONE HCL 0.5 MG/ 0.5 ML SYRINGE (J1170 PER 1) IV PRN ×2 (05:51→21:04)
[2022-01-26] MEDS: OMEPRAZOLE 20MG CAP PO SCH ×2 (06:33→21:02)
[2022-01-26] MEDS: busPIRone 10 MG TAB PO SCH ×2 (06:34→21:02)
[2022-01-26] MEDS: LACTULOSE 20 GM/30 ML SYRUP UD PO SCH (06:34)
[2022-01-26] MEDS: LIDOCAINE 5% (LIDODERM) PATCH TD SCH (06:35)
[2022-01-26] MEDS ORDERED: SODIUM CHLORIDE 0.9% 1000ML IV PRN (06:55)
[2022-01-26 06:58] LABS: HEMATOCRIT 25.8 % (36.0-47.0); HEMOGLOBIN 8.2 g/dl (12.0-15.5); MEAN CORPUSCULAR HEMOGLOBIN 29.8 pg (27.0-33.0); MEAN CORPUSCULAR HGB CONC 31.8 g/dl (32.0-36.5); MEAN CORPUSCULAR VOLUME 93.8 fl (80.0-96.0); RED BLOOD COUNT 2.75 10^6/uL (4.00-5.40); WHITE BLOOD COUNT 3.5 10^3/uL (4.0-10.0)
[2022-01-26 07:08] LABS: PLATELET COUNT, AUTOMATED 86 10^3/uL (150-450)
[2022-01-26 07:16] LABS: CALCIUM LEVEL 8.1 MG/DL (8.5-10.1); CREATININE FOR GFR 2.91 MG/DL (0.55-1.30); GLOMERULAR FILTRATION RATE 17.9 (>51); POTASSIUM SERUM 4.4 MEQ/L (3.5-5.1)
[2022-01-26] MEDS: LEVEMIR (INSULIN DETEMIR) 1 UNITS/0.01ML SC SCH ×2 (08:29→21:02)
[2022-01-26] MEDS: INSULIN LISPRO (NovoLOG) PER UNIT SC SCH ×4 (08:29→20:51)
[2022-01-26] MEDS: cefTRIAXone SOD 1 GM in D5W MINI-BAG PLUS 50 ML IV SCH (08:30)
[2022-01-26 13:07] LABS: ANTI DOUBLE STRAND-DNA AB 12 IU/mL (0-9); ANTI DS-DNA AB Negative (Negative); ANTINUCLEAR ANTIBODIES DIRECT Positive (Negative); CARDIOLIPIN IGA ANTIBODY <9 APL U/mL (0-11); CARDIOLIPIN IGG ANTIBODY <9 GPL U/mL (0-14); CARDIOLIPIN IGM ANTIBODY 26 MPL U/mL (0-12); RNP ANTIBODIES 0.4 AI (0.0-0.9); SJOGREN'S ANTI SS-A <0.2 AI (0.0-0.9); SJOGREN'S ANTI SS-B <0.2 AI (0.0-0.9); SMITH ANTIBODIES <0.2 AI (0.0-0.9)
[2022-01-26 17:04] VITALS: BP 129/54
[2022-01-26] MEDS ORDERED: NYSTATIN 100,000 UNITS/GM TOPICAL PWD 15 GM TOP PRN (18:30)
[2022-01-26 20:00] VITALS: BP 178/55
[2022-01-26] MEDS: NORTRIPTYLINE 25 MG CAP PO SCH (21:02)
[2022-01-26] MEDS: CYCLOBENZAPRINE 5MG TABLET PO SCH (21:02)
[2022-01-26] MEDS: CEFDINIR 300 MG CAP (OMNICEF) PO SCH (21:02)
[2022-01-26] MEDS: **NOTE PATIENT COMMENT** MISC XX SCH (21:03)
[2022-01-26 22:00] VITALS: BP 178/55
[2022-01-27 05:20] VITALS: BP 129/57
[2022-01-27 06:37] LABS: HEMATOCRIT 26.2 % (36.0-47.0); HEMOGLOBIN 8.2 g/dl (12.0-15.5); MEAN CORPUSCULAR HEMOGLOBIN 29.3 pg (27.0-33.0); MEAN CORPUSCULAR HGB CONC 31.3 g/dl (32.0-36.5); MEAN CORPUSCULAR VOLUME 93.6 fl (80.0-96.0); WHITE BLOOD COUNT 3.3 10^3/uL (4.0-10.0)
[2022-01-27 06:41] LABS: PLATELET COUNT, AUTOMATED 84 10^3/uL (150-450)
[2022-01-27] MEDS: LACTULOSE 20 GM/30 ML SYRUP UD PO SCH (06:44)
[2022-01-27] MEDS: OMEPRAZOLE 20MG CAP PO SCH ×2 (06:47→22:01)
[2022-01-27] MEDS: busPIRone 10 MG TAB PO SCH ×2 (06:47→22:01)
[2022-01-27] MEDS: LIDOCAINE 5% (LIDODERM) PATCH TD SCH (06:47)
[2022-01-27 07:17] LABS: CALCIUM LEVEL 8.1 MG/DL (8.5-10.1); CREATININE FOR GFR 2.37 MG/DL (0.55-1.30); GLOMERULAR FILTRATION RATE 22.6 (>51); POTASSIUM SERUM 4.2 MEQ/L (3.5-5.1)
[2022-01-27] MEDS: INSULIN LISPRO (NovoLOG) PER UNIT SC SCH ×4 (08:01→21:00)
[2022-01-27] MEDS: LEVEMIR (INSULIN DETEMIR) 1 UNITS/0.01ML SC SCH ×2 (08:01→21:00)
[2022-01-27 08:09] LABS: DRVV SCREEN 47.5 SEC
[2022-01-27 08:15] LABS: PTT LUPUS TYPE ANTICOAG SCREEN 1.2 (0-1.2)
[2022-01-27 08:22] LABS: DRVV CONFIRM 43.9 SEC; LUPUS CONFIRM RATIO 1.1
[2022-01-27 08:32] LABS: NORMALIZED RATIO 1.09 (0.00-1.20)
[2022-01-27] MEDS ORDERED: SODIUM CHLORIDE 0.9% 1000ML IV PRN (10:55)
[2022-01-27] MEDS: HYDROMORPHONE HCL 0.5 MG/ 0.5 ML SYRINGE (J1170 PER 1) IV PRN ×2 (12:34→22:16)
[2022-01-27 17:06] VITALS: BP 130/59
[2022-01-27 18:03] LABS: URINE TOTAL PROTEIN 204.4 MG/DL (0-12)
[2022-01-27 19:14] LABS: APPEARANCE, URINE TURBID (CLEAR); BACTERIA, URINE AUTO NEGATIVE (NEGATIVE); BILIRUBIN, URINE AUTO NEGATIVE (NEGATIVE); BLOOD, URINE BLOOD 3+ (NEGATIVE); COLOR, URINE AMBER (YELLOW); GLUCOSE, URINE (UA) AUTO NEGATIVE (NEGATIVE); KETONE, URINE AUTO TRACE mg/dL (NEGATIVE); LEUKOCYTE ESTERASE, URINE AUTO 3+ (NEGATIVE); NITRITE, URINE AUTO NEGATIVE (NEGATIVE); PROTEIN, URINE AUTO 3+ mg/dL (NEGATIVE); RBC, URINE AUTO 106 /HPF (0-3); SPECIFIC GRAVITY URINE AUTO 1.013 (1.002-1.035); SQUAMOUS EPITHELIAL CELL UR AU 3 /HPF (0-6); UROBILINOGEN, URINE AUTO 0.2 mg/dL (0.0-2.0); WBC, URINE AUTO TNTC /HPF (0-3)
[2022-01-27 19:50] LABS: TOTAL PROTEIN,RANDOM URINE 257.9 MG/DL (0.0-12.0)
[2022-01-27 21:06] VITALS: BP 136/63
[2022-01-27] MEDS: **NOTE PATIENT COMMENT** MISC XX SCH (21:59)
[2022-01-27] MEDS: CYCLOBENZAPRINE 5MG TABLET PO SCH (22:00)
[2022-01-27] MEDS: NORTRIPTYLINE 25 MG CAP PO SCH (22:00)
[2022-01-28 05:27] VITALS: BP 135/62
[2022-01-28] MEDS ORDERED: SODIUM CHLORIDE 0.9% 1000ML IV PRN (06:00)
[2022-01-28] MEDS: LEVEMIR (INSULIN DETEMIR) 1 UNITS/0.01ML SC SCH ×2 (06:34→20:47)
[2022-01-28] MEDS: busPIRone 10 MG TAB PO SCH ×2 (06:39→20:47)
[2022-01-28] MEDS: INSULIN LISPRO (NovoLOG) PER UNIT SC SCH ×4 (06:39→20:40)
[2022-01-28] MEDS: OMEPRAZOLE 20MG CAP PO SCH ×2 (06:41→20:47)
[2022-01-28] MEDS: LIDOCAINE 5% (LIDODERM) PATCH TD SCH (06:41)
[2022-01-28] MEDS: LACTULOSE 20 GM/30 ML SYRUP UD PO SCH (06:41)
[2022-01-28] MEDS: HYDROMORPHONE HCL 0.5 MG/ 0.5 ML SYRINGE (J1170 PER 1) IV PRN ×6 (08:44→19:29)
[2022-01-28 10:48] LABS: HEMATOCRIT 27.5 % (36.0-47.0); HEMOGLOBIN 8.7 g/dl (12.0-15.5); MEAN CORPUSCULAR HEMOGLOBIN 29.8 pg (27.0-33.0); MEAN CORPUSCULAR HGB CONC 31.6 g/dl (32.0-36.5); MEAN CORPUSCULAR VOLUME 94.2 fl (80.0-96.0); RED BLOOD COUNT 2.92 10^6/uL (4.00-5.40); WHITE BLOOD COUNT 3.4 10^3/uL (4.0-10.0)
[2022-01-28 10:49] LABS: PLATELET COUNT, AUTOMATED 80 10^3/uL (150-450)
[2022-01-28 11:27] LABS: CALCIUM LEVEL 8.1 MG/DL (8.5-10.1); CREATININE FOR GFR 2.61 MG/DL (0.55-1.30); GLOMERULAR FILTRATION RATE 20.3 (>51); POTASSIUM SERUM 4.6 MEQ/L (3.5-5.1)
[2022-01-28 17:00] VITALS: BP 134/61
[2022-01-28 20:07] LABS: ANA (HEP2) Positive (.)
[2022-01-28] MEDS: **NOTE PATIENT COMMENT** MISC XX SCH (20:41)
[2022-01-28] MEDS: NORTRIPTYLINE 25 MG CAP PO SCH (20:47)
[2022-01-28] MEDS: CYCLOBENZAPRINE 5MG TABLET PO SCH (20:47)
[2022-01-28] MEDS: CEFDINIR 300 MG CAP (OMNICEF) PO SCH (20:47)
[2022-01-28 21:00] VITALS: BP 132/64
[2022-01-29 05:17] VITALS: BP 113/54
[2022-01-29 07:16] LABS: ALBUMIN 1.7 GM/DL (3.2-5.2); BILIRUBIN,TOTAL 0.6 MG/DL (0.2-1.0); CREATININE FOR GFR 1.98 MG/DL (0.55-1.30); GLOMERULAR FILTRATION RATE 27.9 (>51); POTASSIUM SERUM 3.9 MEQ/L (3.5-5.1); TOTAL PROTEIN 5.7 GM/DL (6.4-8.2)
[2022-01-29] MEDS: LEVEMIR (INSULIN DETEMIR) 1 UNITS/0.01ML SC SCH ×2 (08:17→21:54)
[2022-01-29] MEDS: LACTULOSE 20 GM/30 ML SYRUP UD PO SCH (08:17)
[2022-01-29] MEDS: LIDOCAINE 5% (LIDODERM) PATCH TD SCH (08:18)
[2022-01-29] MEDS: INSULIN LISPRO (NovoLOG) PER UNIT SC SCH ×4 (08:18→21:00)
[2022-01-29] MEDS: busPIRone 10 MG TAB PO SCH ×2 (08:18→21:55)
[2022-01-29] MEDS: OMEPRAZOLE 20MG CAP PO SCH ×2 (08:18→21:55)
[2022-01-29 14:00] VITALS: BP 124/57
[2022-01-29] MEDS: HYDROMORPHONE HCL 0.5 MG/ 0.5 ML SYRINGE (J1170 PER 1) IV PRN ×2 (15:37→22:15)
[2022-01-29 20:15] VITALS: BP 123/56
[2022-01-29] MEDS: NORTRIPTYLINE 25 MG CAP PO SCH (21:55)
[2022-01-29] MEDS: CYCLOBENZAPRINE 5MG TABLET PO SCH (21:55)
[2022-01-29] MEDS: **NOTE PATIENT COMMENT** MISC XX SCH (22:20)
[2022-01-30 06:00] VITALS: BP 122/57
[2022-01-30] MEDS ORDERED: SODIUM CHLORIDE 0.9% 1000ML IV PRN (06:00)
[2022-01-30 06:45] LABS: HEMATOCRIT 25.7 % (36.0-47.0); HEMOGLOBIN 8.2 g/dl (12.0-15.5); MEAN CORPUSCULAR HEMOGLOBIN 30.3 pg (27.0-33.0); MEAN CORPUSCULAR HGB CONC 31.9 g/dl (32.0-36.5); MEAN CORPUSCULAR VOLUME 94.8 fl (80.0-96.0); RED BLOOD COUNT 2.71 10^6/uL (4.00-5.40); WHITE BLOOD COUNT 3.8 10^3/uL (4.0-10.0)
[2022-01-30 06:47] LABS: PLATELET COUNT, AUTOMATED 70 10^3/uL (150-450)
[2022-01-30 07:13] LABS: CALCIUM LEVEL 8.2 MG/DL (8.5-10.1); CREATININE FOR GFR 2.38 MG/DL (0.55-1.30); GLOMERULAR FILTRATION RATE 22.5 (>51); POTASSIUM SERUM 4.2 MEQ/L (3.5-5.1)
[2022-01-30] MEDS: LACTULOSE 20 GM/30 ML SYRUP UD PO SCH (09:34)
[2022-01-30] MEDS: OMEPRAZOLE 20MG CAP PO SCH ×2 (09:35→20:25)
[2022-01-30] MEDS: LIDOCAINE 5% (LIDODERM) PATCH TD SCH (09:35)
[2022-01-30] MEDS: busPIRone 10 MG TAB PO SCH ×2 (09:35→20:24)
[2022-01-30] MEDS: LEVEMIR (INSULIN DETEMIR) 1 UNITS/0.01ML SC SCH ×2 (09:37→20:25)
[2022-01-30] MEDS: INSULIN LISPRO (NovoLOG) PER UNIT SC SCH ×4 (09:37→20:26)
[2022-01-30 10:55] LABS: ERYTHROCYTE SEDIMENTATION RATE 50 mm/hr (0-30)
[2022-01-30] MEDS: HYDROMORPHONE HCL 0.5 MG/ 0.5 ML SYRINGE (J1170 PER 1) IV PRN ×2 (11:03→20:24)
[2022-01-30] MEDS: CYCLOBENZAPRINE 5MG TABLET PO SCH (20:24)
[2022-01-30] MEDS: NORTRIPTYLINE 25 MG CAP PO SCH (20:25)
[2022-01-30] MEDS: **NOTE PATIENT COMMENT** MISC XX SCH (21:52)
[2022-01-30 22:00] VITALS: BP 158/72
[2022-01-30] MEDS: ACETAMINOPHEN TAB 650MG DOSE (2X325MG) PO PRN (22:59)
[2022-01-31] VITALS (11 sets, daily range): BP systolic 120–137; BP diastolic 57–66
[2022-01-31 03:26] LABS: COMPLEMENT C3 86 MG/DL (90-180); COMPLEMENT C4 9 MG/DL (10-40)
[2022-01-31 06:24] LABS: HEMOGLOBIN 8.3 g/dl (12.0-15.5); MEAN CORPUSCULAR HGB CONC 31.9 g/dl (32.0-36.5); MEAN CORPUSCULAR VOLUME 93.9 fl (80.0-96.0); PLATELET COUNT, AUTOMATED 69 10^3/uL (150-450); RED BLOOD COUNT 2.77 10^6/uL (4.00-5.40)
[2022-01-31 06:53] LABS: CREATININE FOR GFR 2.66 MG/DL (0.55-1.30); GLOMERULAR FILTRATION RATE 19.8 (>51); POTASSIUM SERUM 4.4 MEQ/L (3.5-5.1)
[2022-01-31] MEDS: LACTULOSE 20 GM/30 ML SYRUP UD PO SCH (09:16)
[2022-01-31] MEDS: LIDOCAINE 5% (LIDODERM) PATCH TD SCH (09:16)
[2022-01-31] MEDS: busPIRone 10 MG TAB PO SCH ×2 (09:16→21:06)
[2022-01-31] MEDS: OMEPRAZOLE 20MG CAP PO SCH ×2 (09:16→21:06)
[2022-01-31] MEDS: LEVEMIR (INSULIN DETEMIR) 1 UNITS/0.01ML SC SCH ×2 (09:17→21:15)
[2022-01-31] MEDS: INSULIN LISPRO (NovoLOG) PER UNIT SC SCH ×4 (09:18→21:00)
[2022-01-31] MEDS ORDERED: SODIUM CHLORIDE 0.9% 1000ML IV PRN (09:25)
[2022-01-31] MEDS: HYDROMORPHONE HCL 0.5 MG/ 0.5 ML SYRINGE (J1170 PER 1) IV PRN (12:28)
[2022-01-31] MEDS: DARBEPOETIN 100 MCG/0.5 ML *DIALYSIS* SYRINGE (J0882) IV SCH (12:45)
[2022-01-31] MEDS ORDERED: HYDROMORPHONE HCL 0.5 MG/ 0.5 ML SYRINGE (J1170 PER 1) IV ONE (18:50)
[2022-01-31] MEDS: NORTRIPTYLINE 25 MG CAP PO SCH (21:06)
[2022-01-31] MEDS: CEFDINIR 300 MG CAP (OMNICEF) PO SCH (21:06)
[2022-01-31] MEDS: CYCLOBENZAPRINE 5MG TABLET PO SCH (21:06)
[2022-01-31] MEDS: **NOTE PATIENT COMMENT** MISC XX SCH (21:07)
[2022-01-31] MEDS: HEPARIN SOD (PORCINE) 5000UNITS/ML 1ML VIAL/SYRINGE SQ SCH (21:16)
[2022-02-01] MEDS: ACETAMINOPHEN TAB 650MG DOSE (2X325MG) PO PRN ×2 (04:37→21:09)
[2022-02-01] MEDS: HEPARIN SOD (PORCINE) 5000UNITS/ML 1ML VIAL/SYRINGE SQ SCH (06:00)
[2022-02-01 06:09] LABS: HEMATOCRIT 25.3 % (36.0-47.0); HEMOGLOBIN 8.1 g/dl (12.0-15.5); MEAN CORPUSCULAR HEMOGLOBIN 29.8 pg (27.0-33.0); RED BLOOD COUNT 2.72 10^6/uL (4.00-5.40); WHITE BLOOD COUNT 3.7 10^3/uL (4.0-10.0)
[2022-02-01 06:14] LABS: PLATELET COUNT, AUTOMATED 61 10^3/uL (150-450)
[2022-02-01 06:47] LABS: CALCIUM LEVEL 8.2 MG/DL (8.5-10.1); CREATININE FOR GFR 2.8 MG/DL (0.55-1.30); GLOMERULAR FILTRATION RATE 18.7 (>51); PHOSPHORUS LEVEL 4.2 MG/DL (2.5-4.9); POTASSIUM SERUM 4.3 MEQ/L (3.5-5.1)
[2022-02-01] MEDS: LEVEMIR (INSULIN DETEMIR) 1 UNITS/0.01ML SC SCH ×2 (08:11→21:28)
[2022-02-01] MEDS: LACTULOSE 20 GM/30 ML SYRUP UD PO SCH (08:12)
[2022-02-01] MEDS: OMEPRAZOLE 20MG CAP PO SCH ×2 (08:12→21:28)
[2022-02-01] MEDS: busPIRone 10 MG TAB PO SCH ×2 (08:12→21:28)
[2022-02-01] MEDS: INSULIN LISPRO (NovoLOG) PER UNIT SC SCH ×4 (08:12→21:29)
[2022-02-01 08:13] VITALS: BP 134/61
[2022-02-01] MEDS: LIDOCAINE 5% (LIDODERM) PATCH TD SCH (08:13)
[2022-02-01] MEDS ORDERED: HYDROMORPHONE HCL 0.5 MG/ 0.5 ML SYRINGE (J1170 PER 1) IV STA (11:02)
[2022-02-01] MEDS ORDERED: SODIUM CHLORIDE 0.9% 1000ML IV PRN (11:10)
[2022-02-01] MEDS ORDERED: LIDOCAINE 1% MDV 20ML VIAL As Ordered ONE (11:58)
[2022-02-01 20:37] VITALS: BP 158/74
[2022-02-01] MEDS: NORTRIPTYLINE 25 MG CAP PO SCH (21:28)
[2022-02-01] MEDS: CYCLOBENZAPRINE 5MG TABLET PO SCH (21:28)
[2022-02-01] MEDS: **NOTE PATIENT COMMENT** MISC XX SCH (21:29)
[2022-02-02 06:00] VITALS: BP 119/59
[2022-02-02 06:04] LABS: HEMATOCRIT 26.5 % (36.0-47.0); HEMOGLOBIN 8.4 g/dl (12.0-15.5); MEAN CORPUSCULAR HEMOGLOBIN 29.5 pg (27.0-33.0); MEAN CORPUSCULAR HGB CONC 31.7 g/dl (32.0-36.5); RED BLOOD COUNT 2.85 10^6/uL (4.00-5.40); WHITE BLOOD COUNT 4.3 10^3/uL (4.0-10.0)
[2022-02-02 06:07] LABS: PLATELET COUNT, AUTOMATED 64 10^3/uL (150-450)
[2022-02-02 06:41] LABS: CALCIUM LEVEL 8.2 MG/DL (8.5-10.1); CREATININE FOR GFR 3.17 MG/DL (0.55-1.30); ERYTHROCYTE SEDIMENTATION RATE 48 mm/hr (0-30); GLOMERULAR FILTRATION RATE 16.2 (>51); PHOSPHORUS LEVEL 4.5 MG/DL (2.5-4.9); POTASSIUM SERUM 4.4 MEQ/L (3.5-5.1)
[2022-02-02] MEDS: LACTULOSE 20 GM/30 ML SYRUP UD PO SCH (08:25)
[2022-02-02] MEDS: OMEPRAZOLE 20MG CAP PO SCH ×2 (08:26→20:14)
[2022-02-02] MEDS: busPIRone 10 MG TAB PO SCH ×2 (08:26→20:15)
[2022-02-02] MEDS: LEVEMIR (INSULIN DETEMIR) 1 UNITS/0.01ML SC SCH ×2 (08:27→20:13)
[2022-02-02] MEDS: INSULIN LISPRO (NovoLOG) PER UNIT SC SCH ×4 (08:27→20:14)
[2022-02-02] MEDS: LIDOCAINE 5% (LIDODERM) PATCH TD SCH (08:28)
[2022-02-02] MEDS ORDERED: SODIUM CHLORIDE 0.9% 1000ML IV PRN (10:00)
[2022-02-02] MEDS: ACETAMINOPHEN TAB 650MG DOSE (2X325MG) PO PRN ×2 (11:27→19:00)
[2022-02-02 16:15] VITALS: BP 121/57
[2022-02-02] MEDS: NORTRIPTYLINE 25 MG CAP PO SCH (20:15)
[2022-02-02] MEDS: CYCLOBENZAPRINE 5MG TABLET PO SCH (20:15)
[2022-02-02] MEDS: **NOTE PATIENT COMMENT** MISC XX SCH (20:16)
[2022-02-02 22:00] VITALS: BP 131/61
[2022-02-02] MEDS ORDERED: oxyCODONE 5MG TAB PO PRN (23:55)
[2022-02-03 06:00] VITALS: BP 121/57
[2022-02-03 06:01] LABS: BASO % 0.4 % (0.0-1.0); EOS # 0.2 10^3/uL (0.0-0.5); EOS % 4.3 % (0.0-3.0); HEMOGLOBIN 8.1 g/dl (12.0-15.5); LYMPH # 0.6 10^3/uL (1.5-5.0); LYMPH % 14.4 % (24.0-44.0); MEAN CORPUSCULAR HEMOGLOBIN 30.5 pg (27.0-33.0); MEAN CORPUSCULAR HGB CONC 32.4 g/dl (32.0-36.5); MONO # 0.6 10^3/uL (0.0-0.8); MONO % 13.3 % (2.0-8.0); NEUTROPHILS % 66.3 % (36.0-66.0); RED BLOOD COUNT 2.66 10^6/uL (4.00-5.40); WHITE BLOOD COUNT 4.5 10^3/uL (4.0-10.0)
[2022-02-03 06:07] LABS: PLATELET COUNT, AUTOMATED 71 10^3/uL (150-450)
[2022-02-03 06:27] LABS: CALCIUM LEVEL 8.4 MG/DL (8.5-10.1); CREATININE FOR GFR 3.24 MG/DL (0.55-1.30); GLOMERULAR FILTRATION RATE 15.8 (>51); POTASSIUM SERUM 4.5 MEQ/L (3.5-5.1)
[2022-02-03] MEDS: busPIRone 10 MG TAB PO SCH (06:49)
[2022-02-03] MEDS: LACTULOSE 20 GM/30 ML SYRUP UD PO SCH (06:49)
[2022-02-03] MEDS: LIDOCAINE 5% (LIDODERM) PATCH TD SCH (06:50)
[2022-02-03] MEDS: OMEPRAZOLE 20MG CAP PO SCH (06:50)
[2022-02-03] MEDS: LEVEMIR (INSULIN DETEMIR) 1 UNITS/0.01ML SC SCH (06:51)
[2022-02-03] MEDS: INSULIN LISPRO (NovoLOG) PER UNIT SC SCH (06:52)
[2022-02-03] MEDS ORDERED: SODIUM CHLORIDE 0.9% 1000ML IV PRN (09:00)
== END 2022-02-03 12:30 | disposition home or self-care (01) | DRG 469 ==
LOC: M ED 11:31 → M ED INP 15:00 → ENRESERV 15:39 → CANRESERV 15:39 → ENRESERV 15:41 → M MSPAV 16:09
PROVIDERS: ADMIT Internal Medicine; ATTEND Internal Medicine
PROC: 30233N1 Transfusion of Nonautologous Red Blood Cells into Peripheral Vein, Percutaneous Approach (ICD-10-PCS; 2022-01-22)
PROC: 0JH63XZ Insertion of Tunneled Vascular Access Device into Chest Subcutaneous Tissue and Fascia, Percutaneous Approach (ICD-10-PCS; 2022-01-24)
PROC: 5A1D70Z Performance of Urinary Filtration, Intermittent, Less than 6 Hours Per Day (ICD-10-PCS; 2022-01-24)
PROC: 02HV33Z Insertion of Infusion Device into Superior Vena Cava, Percutaneous Approach (ICD-10-PCS; principal; 2022-01-24 07:30)
DX: N17.9 Acute kidney failure, unspecified (principal); D61.818 Other pancytopenia; E87.2 Acidosis; I12.0 Hypertensive chronic kidney disease with stage 5 chronic kidney disease or end stage renal disease; I85.00 Esophageal varices without bleeding; R18.8 Other ascites; E11.40 Type 2 diabetes mellitus with diabetic neuropathy, unspecified; E11.22 Type 2 diabetes mellitus with diabetic chronic kidney disease; D69.6 Thrombocytopenia, unspecified; E11.65 Type 2 diabetes mellitus with hyperglycemia; E11.319 Type 2 diabetes mellitus with unspecified diabetic retinopathy without macular edema; R16.1 Splenomegaly, not elsewhere classified; K74.60 Unspecified cirrhosis of liver; K75.81 Nonalcoholic steatohepatitis (NASH); D63.1 Anemia in chronic kidney disease; E78.5 Hyperlipidemia, unspecified; F32.A Depression, unspecified; N18.6 End stage renal disease; F41.9 Anxiety disorder, unspecified; J30.9 Allergic rhinitis, unspecified; M19.90 Unspecified osteoarthritis, unspecified site; H54.62 Unqualified visual loss, left eye, normal vision right eye; H81.10 Benign paroxysmal vertigo, unspecified ear; K21.9 Gastro-esophageal reflux disease without esophagitis; R53.81 Other malaise; R01.1 Cardiac murmur, unspecified; N39.0 Urinary tract infection, site not specified; R21 Rash and other nonspecific skin eruption; R51.9 Headache, unspecified; Z99.2 Dependence on renal dialysis; Z79.4 Long term (current) use of insulin; Z91.018 Allergy to other foods; Z79.899 Other long term (current) drug therapy; Z91.048 Other nonmedicinal substance allergy status

== ENCOUNTER → 2022-02-07 | Outpatient (CLI) | payer OTHER ==
[2022-02-07 14:52] LABS: HEMATOCRIT 28.1 % (36.0-47.0); MEAN CORPUSCULAR HEMOGLOBIN 29.3 pg (27.0-33.0); MEAN CORPUSCULAR VOLUME 91.5 fl (80.0-96.0); PLATELET COUNT, AUTOMATED 103 10^3/uL (150-450); RED BLOOD COUNT 3.07 10^6/uL (4.00-5.40); WHITE BLOOD COUNT 4.5 10^3/uL (4.0-10.0)
[2022-02-07 15:32] LABS: ALBUMIN 2.2 GM/DL (3.2-5.2); BILIRUBIN,TOTAL 1.6 MG/DL (0.2-1.0); CALCIUM LEVEL 8.4 MG/DL (8.5-10.1); CREATININE FOR GFR 1.71 MG/DL (0.55-1.30); POTASSIUM SERUM 3.6 MEQ/L (3.5-5.1)
== END ==
LOC: M PLALAB 10:16
PROVIDERS: ATTEND Student in an Organized Health Care Education/Training Program
DX: R60.0 Localized edema (principal)

== ENCOUNTER 2022-02-14 12:31 | Emergency (ER) | payer OTHER ==
[~2022-02-14] VITALS: Ht 165.1 cm; Wt 95.5 kg
[2022-02-14] MEDS ORDERED: NS 1,000 ML IV SCH (15:55)
[2022-02-14] MEDS ORDERED: MORPHINE 4 MG/ML 1ML VIAL/SYRINGE IV ONE (15:55)
[2022-02-14 16:30] LABS: BASO % 0.4 % (0.0-1.0); EOS # 0.2 10^3/uL (0.0-0.5); EOS % 3.6 % (0.0-3.0); HEMOGLOBIN 8.2 g/dl (12.0-15.5); LYMPH # 0.6 10^3/uL (1.5-5.0); LYMPH % 11.1 % (24.0-44.0); MEAN CORPUSCULAR HEMOGLOBIN 29.7 pg (27.0-33.0); MEAN CORPUSCULAR HGB CONC 32.8 g/dl (32.0-36.5); MEAN CORPUSCULAR VOLUME 90.6 fl (80.0-96.0); MONO # 0.7 10^3/uL (0.0-0.8); MONO % 14.5 % (2.0-8.0); NEUTROPHILS # 3.5 10^3/uL (1.5-8.5); NEUTROPHILS % 69.8 % (36.0-66.0); PLATELET COUNT, AUTOMATED 164 10^3/uL (150-450); RED BLOOD COUNT 2.76 10^6/uL (4.00-5.40)
[2022-02-14 17:10] LABS: ALBUMIN 1.9 GM/DL (3.2-5.2); BILIRUBIN,TOTAL 1.5 MG/DL (0.2-1.0); CALCIUM LEVEL 8.5 MG/DL (8.5-10.1); CREATININE FOR GFR 2.4 MG/DL (0.55-1.30); GLOMERULAR FILTRATION RATE 22.3 (>51); TOTAL PROTEIN 6.7 GM/DL (6.4-8.2)
[2022-02-14] MEDS ORDERED: OXYC-517 PO (19:14)
[2022-02-14 19:21] VITALS: BP 179/84
== END 2022-02-14 19:32 | disposition home or self-care (01) ==
LOC: M ED 12:31
DX: R60.1 Generalized edema (principal); N18.6 End stage renal disease; G89.29 Other chronic pain; Z99.2 Dependence on renal dialysis; E11.9 Type 2 diabetes mellitus without complications; Z91.018 Allergy to other foods; Z91.048 Other nonmedicinal substance allergy status; Z79.899 Other long term (current) drug therapy; Z79.4 Long term (current) use of insulin
CPT/HCPCS: 74176; 80053; 85025; 93970; 96361; 96374; 99284; J2270

== ENCOUNTER → 2022-02-22 | Outpatient (CLI) | payer OTHER ==
[~2022-02-22] MED LIST changes: +OXYC-517 PO
[2022-02-22 15:16] LABS: ALBUMIN 1.6 GM/DL (3.2-5.2); CALCIUM LEVEL 8.5 MG/DL (8.5-10.1); CREATININE FOR GFR 3.03 MG/DL (0.55-1.30); GLOMERULAR FILTRATION RATE 17.1 (>51); PHOSPHORUS LEVEL 4.6 MG/DL (2.5-4.9); POTASSIUM SERUM 3.7 MEQ/L (3.5-5.1)
[2022-02-22 15:42] LABS: PTH INTACT 152.4 PG/ML (18.5-88.0)
== END ==
LOC: M RAD 12:56
PROVIDERS: ATTEND Student in an Organized Health Care Education/Training Program
DX: E83.59 Other disorders of calcium metabolism (principal)

== ENCOUNTER → 2022-03-02 | Outpatient (CLI) | payer OTHER ==
[2022-03-02 14:14] LABS: HEMATOCRIT 22.5 % (36.0-47.0); HEMOGLOBIN 7.1 g/dl (12.0-15.5); MEAN CORPUSCULAR HEMOGLOBIN 28.7 pg (27.0-33.0); MEAN CORPUSCULAR HGB CONC 31.6 g/dl (32.0-36.5); MEAN CORPUSCULAR VOLUME 91.1 fl (80.0-96.0); PLATELET COUNT, AUTOMATED 169 10^3/uL (150-450); RED BLOOD COUNT 2.47 10^6/uL (4.00-5.40); WHITE BLOOD COUNT 8.7 10^3/uL (4.0-10.0)
== END ==
LOC: M LAB 13:27
PROVIDERS: ATTEND Student in an Organized Health Care Education/Training Program
DX: D64.9 Anemia, unspecified (principal)

== ENCOUNTER 2022-03-03 11:28 | Outpatient (CLI) | payer OTHER ==
[~2022-03-03] VITALS: Ht 165.1 cm; Wt 99.0 kg
[2022-03-03] VITALS (7 sets, daily range): BP systolic 112–144; BP diastolic 58–72
== END 2022-03-03 18:10 | disposition home or self-care (01) ==
LOC: M INFU 11:28
PROVIDERS: ATTEND Student in an Organized Health Care Education/Training Program
DX: E11.65 Type 2 diabetes mellitus with hyperglycemia (principal); D63.8 Anemia in other chronic diseases classified elsewhere
CPT/HCPCS: 36430; 86850; 86900; 86901; 86920; P9016

== ENCOUNTER → 2022-03-04 | Outpatient (CLI) | payer OTHER | LOC: M LAB 13:48 | PROVIDERS: ATTEND Emergency Medicine | DX: D64.9 Anemia, unspecified (principal) ==

== ENCOUNTER → 2022-03-06 | Outpatient (CLI) | payer OTHER ==
[2022-03-06 13:58] LABS: HEMATOCRIT 24.3 % (36.0-47.0); HEMOGLOBIN 7.6 g/dl (12.0-15.5); MEAN CORPUSCULAR HEMOGLOBIN 27.8 pg (27.0-33.0); MEAN CORPUSCULAR HGB CONC 31.3 g/dl (32.0-36.5); PLATELET COUNT, AUTOMATED 168 10^3/uL (150-450); RED BLOOD COUNT 2.73 10^6/uL (4.00-5.40); WHITE BLOOD COUNT 7.3 10^3/uL (4.0-10.0)
== END ==
LOC: M LAB 13:05
PROVIDERS: ATTEND Student in an Organized Health Care Education/Training Program
DX: D64.9 Anemia, unspecified (principal)

== ENCOUNTER → 2022-03-09 | Outpatient (CLI) | payer OTHER ==
[2022-03-09 15:30] LABS: HEMATOCRIT 23.9 % (36.0-47.0); HEMOGLOBIN 7.6 g/dl (12.0-15.5); MEAN CORPUSCULAR HEMOGLOBIN 28.6 pg (27.0-33.0); MEAN CORPUSCULAR HGB CONC 31.8 g/dl (32.0-36.5); MEAN CORPUSCULAR VOLUME 89.8 fl (80.0-96.0); PLATELET COUNT, AUTOMATED 181 10^3/uL (150-450); RED BLOOD COUNT 2.66 10^6/uL (4.00-5.40); WHITE BLOOD COUNT 10.1 10^3/uL (4.0-10.0)
== END ==
LOC: M LAB 14:17
PROVIDERS: ATTEND Student in an Organized Health Care Education/Training Program
DX: D64.9 Anemia, unspecified (principal)

== ENCOUNTER 2022-03-20 14:33 | Inpatient (IN) | payer OTHER ==
[~2022-03-20] VITALS: Ht 172.7 cm; Wt 100.4 kg
[2022-03-20 15:36] LABS: HEMATOCRIT 21.6 % (36.0-47.0); HEMOGLOBIN 7.1 g/dl (12.0-15.5); MEAN CORPUSCULAR HEMOGLOBIN 29.6 pg (27.0-33.0); MEAN CORPUSCULAR HGB CONC 32.9 g/dl (32.0-36.5); PLATELET COUNT, AUTOMATED 170 10^3/uL (150-450)
[2022-03-20 15:41] LABS: WHITE BLOOD COUNT 34.2 10^3/uL (4.0-10.0)
[2022-03-20 16:08] LABS: LYMPHOCYTES 4 % (16-44); MONOCYTES 1 % (0-5); NEUTROPHILS 85 % (28-66)
[2022-03-20 16:10] LABS: CALCIUM LEVEL 7.6 MG/DL (8.5-10.1); CREATININE FOR GFR 4.53 MG/DL (0.55-1.30); GLOMERULAR FILTRATION RATE 10.7 (>51); POTASSIUM SERUM 4.6 MEQ/L (3.5-5.1)
[2022-03-20 16:11] LABS: PLATELET ESTIMATE NORMAL (NORMAL)
[2022-03-20 16:12] LABS: ANISOCYTOSIS 2+; HELMET CELLS 1+; HYPOCHROMASIA 2+; OVALOCYTES 1+; SCHISTOCYTES 1+
[2022-03-20 16:20] LABS: RSV AMPLIFICATION NEGATIVE (NEGATIVE)
[2022-03-20] MEDS ORDERED: DEXTROSE 50% 50 ML SYRINGE As Ordered ONE (16:30)
[2022-03-20] MEDS ORDERED: cefTRIAXone SOD 2 GM in D5W MINI-BAG PLUS 50 ML IV ONE (16:55)
[2022-03-20 17:22] LABS: CK-MB VALUE MASS 1.7 NG/ML (<3.6); MB/CK RELATIVE INDEX 4.59 (< OR =4)
[2022-03-20 17:34] LABS: ALBUMIN 1.1 GM/DL (3.2-5.2); BILIRUBIN,DIRECT 1.9 MG/DL (0.0-0.2); BILIRUBIN,TOTAL 2.3 MG/DL (0.2-1.0); C REACTIVE PROTEIN QUANTITATIV 22.8 MG/DL (0.00-0.30); TOTAL PROTEIN 5.9 GM/DL (6.4-8.2)
[2022-03-20 17:36] LABS: ABG BASE EXCESS -4.9 (-2.0-2.0); ABG HCO3 19.1 MEQ/L (22.0-26.0); ABG O2 SATURATION 97.4 % (95.0-99.0); ABG PARTIAL PRESSURE CO2 30.6 mmHg (35.0-45.0); ABG PARTIAL PRESSURE O2 98.6 mmHg (75.0-100.0); ABG STANDARD HCO3 20.4 MEQ/L (22.0-26.0); ABG TOTAL CO2 20.1 MEQ/L (22.0-29.0); ABG pH (ARTERIAL) 7.414 UNITS (7.350-7.450)
[2022-03-20] MEDS ORDERED: MORPHINE 4 MG/ML 1ML VIAL/SYRINGE IV ONE (18:00)
[2022-03-20 18:55] LABS: MEAN CORPUSCULAR HEMOGLOBIN 28.8 pg (27.0-33.0); MEAN CORPUSCULAR HGB CONC 32.2 g/dl (32.0-36.5); MEAN CORPUSCULAR VOLUME 89.3 fl (80.0-96.0); PLATELET COUNT, AUTOMATED 144 10^3/uL (150-450); RED BLOOD COUNT 2.33 10^6/uL (4.00-5.40); WHITE BLOOD COUNT 29.9 10^3/uL (4.0-10.0)
[2022-03-20 18:56] LABS: HEMOGLOBIN 6.7 g/dl (12.0-15.5)
[2022-03-20 18:57] LABS: HEMATOCRIT 20.8 % (36.0-47.0)
[2022-03-20] MEDS ORDERED: FENT1DIS14 TD (19:25)
[2022-03-20] MEDS ORDERED: VELP5CHW PO (19:25)
[2022-03-20] MEDS ORDERED: MIDO5TA PO (19:25)
[2022-03-20] MEDS ORDERED: HOME MED LIST COMPLETE! XX SCH (19:30)
[2022-03-20] MEDS ORDERED: SODIUM THIOSULFATE (25%) 12.5 GM/50 ML VIAL IV SCH (20:25)
[2022-03-20 21:30] VITALS: BP 115/59
[2022-03-21] VITALS (12 sets, daily range): BP systolic 85–121; BP diastolic 54–84
[2022-03-21] MEDS ORDERED: ACETAMINOPHEN 500 MG TAB PO ONE (00:10)
[2022-03-21] MEDS: HYDROMORPHONE HCL 0.5 MG/ 0.5 ML SYRINGE (J1170 PER 1) IV PRN ×3 (01:33→20:59)
[2022-03-21] MEDS ORDERED: SODIUM CHLORIDE 0.9% 1000ML IV PRN (06:35)
[2022-03-21 07:05] LABS: MEAN CORPUSCULAR HEMOGLOBIN 29.8 pg (27.0-33.0); MEAN CORPUSCULAR VOLUME 87.7 fl (80.0-96.0); PLATELET COUNT, AUTOMATED 186 10^3/uL (150-450); RED BLOOD COUNT 2.35 10^6/uL (4.00-5.40)
[2022-03-21 07:10] LABS: HEMATOCRIT 20.6 % (36.0-47.0); WHITE BLOOD COUNT 32.3 10^3/uL (4.0-10.0)
[2022-03-21 07:35] LABS: ALBUMIN 1.1 GM/DL (3.2-5.2); CALCIUM LEVEL 7.4 MG/DL (8.5-10.1); CREATININE FOR GFR 4.49 MG/DL (0.55-1.30); GLOMERULAR FILTRATION RATE 10.8 (>51); MAGNESIUM LEVEL 1.7 MG/DL (1.8-2.4); POTASSIUM SERUM 4.4 MEQ/L (3.5-5.1); TOTAL PROTEIN 5.8 GM/DL (6.4-8.2)
[2022-03-21] MEDS: MIDODRINE 5 MG TAB PO SCH ×3 (08:00→17:47)
[2022-03-21] MEDS ORDERED: GLUCAGON INJ 1MG VIAL SC PRN (08:05)
[2022-03-21] MEDS ORDERED: GLUCOSE 4GM CHEW TABLET PO PRN (08:05)
[2022-03-21] MEDS ORDERED: DEXTROSE 50% 50 ML SYRINGE IV PRN (08:05)
[2022-03-21] MEDS ORDERED: PERCOCET 5MG/325MG TAB PO ONE (08:45)
[2022-03-21] MEDS ORDERED: HYDROMORPHONE HCL 0.5 MG/ 0.5 ML SYRINGE (J1170 PER 1) IV ONE (08:45)
[2022-03-21] MEDS ORDERED: VANCOMYCIN HCL 1,000 MG, VIAL MATE ADAPTER 1 EACH in D5W 250 ML IV ONE (09:00)
[2022-03-21] MEDS ORDERED: SODIUM THIOSULFATE 12.5 GM in NS 100 ML IV ONE ×2 (09:00→11:00)
[2022-03-21] MEDS ORDERED: PERCOCET 5MG/325MG TAB PO PRN (11:55)
[2022-03-21] MEDS: FERROUS SULFATE 325MG TAB PO SCH (13:38)
[2022-03-21] MEDS: SUCROFERRIC OXYHYDROXIDE 500MG CHEW TAB (VELPHORO) PO SCH ×2 (13:38→17:47)
[2022-03-21] MEDS: busPIRone 10 MG TAB PO SCH ×2 (13:38→20:59)
[2022-03-21] MEDS ORDERED: VANCOMYCIN HCL 500 MG in D5W MINI-BAG PLUS 100 ML IV ONE (14:00)
[2022-03-21] MEDS: PERCOCET 5MG/325MG TAB PO PRN (15:20)
[2022-03-21] MEDS ORDERED: VANCOMYCIN HCL 1,000 MG, VIAL MATE ADAPTER 1 EACH in NS 250 ML IV SCH (16:00)
[2022-03-21] MEDS: cefTRIAXone SOD 1 GM in D5W MINI-BAG PLUS 50 ML IV SCH (17:47)
[2022-03-21] MEDS: fentaNYL 25 MCG/HR PATCH TD SCH (17:48)
[2022-03-21] MEDS: NORTRIPTYLINE 25 MG CAP PO SCH (20:59)
[2022-03-22] VITALS: BP 118/58
[2022-03-22] MEDS: ACETAMINOPHEN TAB 650MG DOSE (2X325MG) PO PRN ×2 (00:13→20:24)
[2022-03-22] MEDS: HYDROMORPHONE HCL 0.5 MG/ 0.5 ML SYRINGE (J1170 PER 1) IV PRN ×2 (01:54→20:27)
[2022-03-22 04:00] VITALS: BP 157/60
[2022-03-22 07:46] VITALS: BP 111/53
[2022-03-22] MEDS ORDERED: VANCOMYCIN HCL 500 MG in D5W MINI-BAG PLUS 100 ML IV ONE (08:00)
[2022-03-22] MEDS: MIDODRINE 5 MG TAB PO SCH ×3 (08:27→15:54)
[2022-03-22] MEDS: SUCROFERRIC OXYHYDROXIDE 500MG CHEW TAB (VELPHORO) PO SCH ×3 (08:27→17:56)
[2022-03-22] MEDS: busPIRone 10 MG TAB PO SCH ×2 (08:27→20:25)
[2022-03-22] MEDS: FERROUS SULFATE 325MG TAB PO SCH (08:27)
[2022-03-22] MEDS: PERCOCET 5MG/325MG TAB PO PRN ×2 (08:28→15:55)
[2022-03-22 11:38] LABS: BASO % 0.2 % (0.0-1.0); EOS # 0.2 10^3/uL (0.0-0.5); EOS % 1.1 % (0.0-3.0); HEMATOCRIT 23.6 % (36.0-47.0); HEMOGLOBIN 7.7 g/dl (12.0-15.5); LYMPH # 0.8 10^3/uL (1.5-5.0); LYMPH % 3.7 % (24.0-44.0); MEAN CORPUSCULAR HEMOGLOBIN 28.6 pg (27.0-33.0); MEAN CORPUSCULAR HGB CONC 32.6 g/dl (32.0-36.5); MEAN CORPUSCULAR VOLUME 87.7 fl (80.0-96.0); MONO % 4.5 % (2.0-8.0); NEUTROPHILS # 19.8 10^3/uL (1.5-8.5); NEUTROPHILS % 87.4 % (36.0-66.0); PLATELET COUNT, AUTOMATED 163 10^3/uL (150-450); RED BLOOD COUNT 2.69 10^6/uL (4.00-5.40); WHITE BLOOD COUNT 22.6 10^3/uL (4.0-10.0)
[2022-03-22 11:56] LABS: ERYTHROCYTE SEDIMENTATION RATE 93 mm/hr (0-30)
[2022-03-22 12:00] VITALS: BP 115/53
[2022-03-22 12:26] LABS: ALBUMIN 0.9 GM/DL (3.2-5.2); BILIRUBIN,TOTAL 1.8 MG/DL (0.2-1.0); C REACTIVE PROTEIN QUANTITATIV 21.4 MG/DL (0.00-0.30); CALCIUM LEVEL 7.5 MG/DL (8.5-10.1); CREATININE FOR GFR 3.19 MG/DL (0.55-1.30); GLOMERULAR FILTRATION RATE 16.1 (>51); POTASSIUM SERUM 4.1 MEQ/L (3.5-5.1); TOTAL PROTEIN 5.5 GM/DL (6.4-8.2)
[2022-03-22] MEDS: NS 1,000 ML IV SCH (12:30)
[2022-03-22 16:00] VITALS: BP 122/53
[2022-03-22] MEDS ORDERED: PROMETHAZINE 25MG/ML 1ML VIAL IV ONE (16:55)
[2022-03-22] MEDS ORDERED: SENOKOT S TAB PO ONE (16:55)
[2022-03-22] MEDS ORDERED: BISACODYL 5 MG TAB PO ONE (16:55)
[2022-03-22] MEDS ORDERED: SENOKOT S TAB PO PRN (16:55)
[2022-03-22] MEDS: cefTRIAXone SOD 1 GM in D5W MINI-BAG PLUS 50 ML IV SCH (17:36)
[2022-03-22] MEDS ORDERED: ONDANSETRON 4MG 2ML VIAL IV ONE (17:50)
[2022-03-22] MEDS ORDERED: ONDANSETRON 4MG 2ML VIAL IV PRN (17:50)
[2022-03-22] MEDS: INSULIN LISPRO (NovoLOG) PER UNIT SC SCH ×2 (17:56→20:26)
[2022-03-22] MEDS: NORTRIPTYLINE 25 MG CAP PO SCH (20:25)
[2022-03-22] MEDS: MIRALAX *UNIT DOSE* 17GM PACKET PO SCH (20:25)
[2022-03-22] MEDS: LEVEMIR (INSULIN DETEMIR) 1 UNITS/0.01ML SC SCH (20:26)
[2022-03-22 20:36] VITALS: BP 116/51
[2022-03-22] MEDS ORDERED: PROMETHAZINE 25MG/ML 1ML VIAL IV PRN (21:00)
[2022-03-23] VITALS (14 sets, daily range): BP systolic 88–129; BP diastolic 45–94
[2022-03-23] MEDS: NS 1,000 ML IV SCH ×2 (05:27→22:12)
[2022-03-23 05:36] LABS: BASO % 0.2 % (0.0-1.0); EOS # 0.4 10^3/uL (0.0-0.5); EOS % 2.3 % (0.0-3.0); HEMATOCRIT 22.3 % (36.0-47.0); HEMOGLOBIN 7.3 g/dl (12.0-15.5); LYMPH # 0.9 10^3/uL (1.5-5.0); LYMPH % 4.7 % (24.0-44.0); MEAN CORPUSCULAR HEMOGLOBIN 29.1 pg (27.0-33.0); MEAN CORPUSCULAR HGB CONC 32.7 g/dl (32.0-36.5); MEAN CORPUSCULAR VOLUME 88.8 fl (80.0-96.0); MONO % 5.2 % (2.0-8.0); NEUTROPHILS % 84.6 % (36.0-66.0); PLATELET COUNT, AUTOMATED 131 10^3/uL (150-450); RED BLOOD COUNT 2.51 10^6/uL (4.00-5.40); WHITE BLOOD COUNT 18.9 10^3/uL (4.0-10.0)
[2022-03-23 06:10] LABS: CALCIUM LEVEL 7.5 MG/DL (8.5-10.1); CREATININE FOR GFR 3.33 MG/DL (0.55-1.30); GLOMERULAR FILTRATION RATE 15.3 (>51); POTASSIUM SERUM 4.1 MEQ/L (3.5-5.1); VANCOMYCIN RANDOM 15.2 UG/ML
[2022-03-23] MEDS ORDERED: SODIUM CHLORIDE 0.9% 1000ML IV PRN (06:20)
[2022-03-23] MEDS: SUCROFERRIC OXYHYDROXIDE 500MG CHEW TAB (VELPHORO) PO SCH ×3 (06:30→22:11)
[2022-03-23] MEDS: INSULIN LISPRO (NovoLOG) PER UNIT SC SCH ×4 (06:30→21:00)
[2022-03-23] MEDS: busPIRone 10 MG TAB PO SCH ×2 (06:31→22:12)
[2022-03-23] MEDS: FERROUS SULFATE 325MG TAB PO SCH (06:31)
[2022-03-23] MEDS: MIDODRINE 5 MG TAB PO SCH ×3 (06:31→16:00)
[2022-03-23] MEDS: MIRALAX *UNIT DOSE* 17GM PACKET PO SCH ×2 (06:31→21:00)
[2022-03-23 07:02] LABS: PHOSPHORUS LEVEL 4.9 MG/DL (2.5-4.9)
[2022-03-23] MEDS ORDERED: VANCOMYCIN HCL 500 MG in D5W MINI-BAG PLUS 100 ML IV ONE (07:10)
[2022-03-23] MEDS ORDERED: VANCOMYCIN HCL 750 MG, VIAL MATE ADAPTER 1 EACH in D5W 250 ML IV ONE (07:15)
[2022-03-23] MEDS ORDERED: SODIUM THIOSULFATE 12.5 GM in NS 100 ML IV SCH (11:00)
[2022-03-23] MEDS: PERCOCET 5MG/325MG TAB PO PRN ×2 (13:05→22:43)
[2022-03-23] MEDS: LEVEMIR (INSULIN DETEMIR) 1 UNITS/0.01ML SC SCH (21:00)
[2022-03-23 21:47] LABS: HEMATOCRIT 30.3 % (36.0-47.0)
[2022-03-23 21:52] LABS: HEMOGLOBIN 10.2 g/dl (12.0-15.5)
[2022-03-23] MEDS: cefTRIAXone SOD 1 GM in D5W MINI-BAG PLUS 50 ML IV SCH (22:11)
[2022-03-23] MEDS: NORTRIPTYLINE 25 MG CAP PO SCH (22:12)
[2022-03-24 00:33] LABS: RSV AMPLIFICATION NEGATIVE (NEGATIVE)
[2022-03-24 04:00] VITALS: BP 104/51
[2022-03-24 06:26] LABS: BASO # 0.1 10^3/uL (0.0-0.2); BASO % 0.4 % (0.0-1.0); EOS # 0.3 10^3/uL (0.0-0.5); EOS % 1.9 % (0.0-3.0); HEMATOCRIT 29.2 % (36.0-47.0); HEMOGLOBIN 9.5 g/dl (12.0-15.5); LYMPH # 0.9 10^3/uL (1.5-5.0); LYMPH % 4.9 % (24.0-44.0); MEAN CORPUSCULAR HEMOGLOBIN 29.2 pg (27.0-33.0); MEAN CORPUSCULAR HGB CONC 32.5 g/dl (32.0-36.5); MEAN CORPUSCULAR VOLUME 89.8 fl (80.0-96.0); MONO # 0.9 10^3/uL (0.0-0.8); MONO % 5.4 % (2.0-8.0); NEUTROPHILS # 14.5 10^3/uL (1.5-8.5); NEUTROPHILS % 82.9 % (36.0-66.0); PLATELET COUNT, AUTOMATED 123 10^3/uL (150-450); RED BLOOD COUNT 3.25 10^6/uL (4.00-5.40); WHITE BLOOD COUNT 17.5 10^3/uL (4.0-10.0)
[2022-03-24 07:19] LABS: CALCIUM LEVEL 7.9 MG/DL (8.5-10.1); CREATININE FOR GFR 2.44 MG/DL (0.55-1.30); GLOMERULAR FILTRATION RATE 21.9 (>51); VANCOMYCIN RANDOM 16.2 UG/ML
[2022-03-24 07:45] VITALS: BP 107/52
[2022-03-24] MEDS: SUCROFERRIC OXYHYDROXIDE 500MG CHEW TAB (VELPHORO) PO SCH ×3 (08:41→18:00)
[2022-03-24] MEDS: MIDODRINE 5 MG TAB PO SCH ×3 (08:41→16:55)
[2022-03-24] MEDS: busPIRone 10 MG TAB PO SCH ×2 (08:41→20:50)
[2022-03-24] MEDS: MIRALAX *UNIT DOSE* 17GM PACKET PO SCH ×2 (08:41→20:50)
[2022-03-24] MEDS: FERROUS SULFATE 325MG TAB PO SCH (08:41)
[2022-03-24] MEDS: INSULIN LISPRO (NovoLOG) PER UNIT SC SCH ×4 (08:42→20:49)
[2022-03-24] MEDS ORDERED: VANCOMYCIN HCL 1,000 MG, VIAL MATE ADAPTER 1 EACH in D5W 250 ML IV ONE (09:00)
[2022-03-24 16:00] VITALS: BP 117/59
[2022-03-24] MEDS: ACETAMINOPHEN TAB 650MG DOSE (2X325MG) PO PRN (16:55)
[2022-03-24] MEDS: fentaNYL 25 MCG/HR PATCH TD SCH (16:56)
[2022-03-24] MEDS: NS 1,000 ML IV SCH (17:03)
[2022-03-24] MEDS: cefTRIAXone SOD 1 GM in D5W MINI-BAG PLUS 50 ML IV SCH (17:03)
[2022-03-24] MEDS ORDERED: LIDOCAINE 1% SDV 5ML VIAL SC PRN (19:15)
[2022-03-24 20:00] VITALS: BP_SYST 129; BP_DIAS 29; BP_DIAS 62
[2022-03-24] MEDS: NORTRIPTYLINE 25 MG CAP PO SCH (20:50)
[2022-03-24] MEDS: LEVEMIR (INSULIN DETEMIR) 1 UNITS/0.01ML SC SCH (20:50)
[2022-03-25 04:00] VITALS: BP 129/59
[2022-03-25 05:45] LABS: BASO % 0.2 % (0.0-1.0); EOS # 0.4 10^3/uL (0.0-0.5); EOS % 3.5 % (0.0-3.0); HEMATOCRIT 27.2 % (36.0-47.0); HEMOGLOBIN 8.9 g/dl (12.0-15.5); LYMPH # 0.7 10^3/uL (1.5-5.0); LYMPH % 5.2 % (24.0-44.0); MEAN CORPUSCULAR HEMOGLOBIN 28.8 pg (27.0-33.0); MEAN CORPUSCULAR HGB CONC 32.7 g/dl (32.0-36.5); MONO # 0.8 10^3/uL (0.0-0.8); MONO % 6.4 % (2.0-8.0); NEUTROPHILS # 10.2 10^3/uL (1.5-8.5); NEUTROPHILS % 80.2 % (36.0-66.0); PLATELET COUNT, AUTOMATED 116 10^3/uL (150-450); RED BLOOD COUNT 3.09 10^6/uL (4.00-5.40); WHITE BLOOD COUNT 12.7 10^3/uL (4.0-10.0)
[2022-03-25] MEDS ORDERED: SODIUM CHLORIDE 0.9% 1000ML IV PRN (06:00)
[2022-03-25 06:29] LABS: CALCIUM LEVEL 7.3 MG/DL (8.5-10.1); CREATININE FOR GFR 2.59 MG/DL (0.55-1.30); GLOMERULAR FILTRATION RATE 20.4 (>51)
[2022-03-25] MEDS: FERROUS SULFATE 325MG TAB PO SCH (06:49)
[2022-03-25] MEDS: busPIRone 10 MG TAB PO SCH ×2 (06:49→22:05)
[2022-03-25 07:37] VITALS: BP 119/56
[2022-03-25 07:51] LABS: VANCOMYCIN RANDOM 20.2 UG/ML
[2022-03-25] MEDS: MIDODRINE 5 MG TAB PO SCH ×3 (08:00→16:00)
[2022-03-25] MEDS: SUCROFERRIC OXYHYDROXIDE 500MG CHEW TAB (VELPHORO) PO SCH ×3 (08:00→22:04)
[2022-03-25] MEDS: INSULIN LISPRO (NovoLOG) PER UNIT SC SCH ×4 (10:18→22:05)
[2022-03-25] MEDS: PERCOCET 5MG/325MG TAB PO PRN ×2 (10:20→22:18)
[2022-03-25] MEDS: MIRALAX *UNIT DOSE* 17GM PACKET PO SCH ×2 (10:21→22:05)
[2022-03-25] MEDS: SODIUM THIOSULFATE 25 GM in NS 100 ML IV SCH (18:01)
[2022-03-25 20:00] VITALS: BP 119/78
[2022-03-25] MEDS ORDERED: LINEZOLID 600MG TABLET (ZYVOX) PO SCH (21:00)
[2022-03-25] MEDS: LevoFLOXacin 250 MG TABLET PO SCH (21:52)
[2022-03-25] MEDS: LEVEMIR (INSULIN DETEMIR) 1 UNITS/0.01ML SC SCH (22:05)
[2022-03-25] MEDS: NORTRIPTYLINE 25 MG CAP PO SCH (22:06)
[2022-03-26 04:23] VITALS: BP 114/57
[2022-03-26 06:50] LABS: HEMATOCRIT 26.6 % (36.0-47.0); HEMOGLOBIN 8.5 g/dl (12.0-15.5); MEAN CORPUSCULAR HEMOGLOBIN 28.7 pg (27.0-33.0); MEAN CORPUSCULAR VOLUME 89.9 fl (80.0-96.0); PLATELET COUNT, AUTOMATED 116 10^3/uL (150-450); RED BLOOD COUNT 2.96 10^6/uL (4.00-5.40); WHITE BLOOD COUNT 11.2 10^3/uL (4.0-10.0)
[2022-03-26 07:15] LABS: CALCIUM LEVEL 7.6 MG/DL (8.5-10.1); CREATININE FOR GFR 2.07 MG/DL (0.55-1.30); EOSINOPHILS 3 % (0-3); GLOMERULAR FILTRATION RATE 26.5 (>51); LYMPHOCYTES 7 % (16-44); METAMYELOCYTES 3 % (0-0); MONOCYTES 4 % (0-5); MYELOCYTES 2 % (0-0); NEUTROPHILS 81 % (28-66); POTASSIUM SERUM 3.9 MEQ/L (3.5-5.1)
[2022-03-26 07:17] LABS: ANISOCYTOSIS 2+; PLATELET ESTIMATE DECREASED (NORMAL); SMUDGE CELLS 1+
[2022-03-26 07:18] LABS: POIKILOCYTOSIS 1+
[2022-03-26 07:19] LABS: OVALOCYTES 1+
[2022-03-26] MEDS: SUCROFERRIC OXYHYDROXIDE 500MG CHEW TAB (VELPHORO) PO SCH ×3 (08:00→18:50)
[2022-03-26 08:09] VITALS: BP 100/50
[2022-03-26] MEDS: MIRALAX *UNIT DOSE* 17GM PACKET PO SCH ×2 (09:02→21:00)
[2022-03-26] MEDS: busPIRone 10 MG TAB PO SCH ×2 (09:02→22:50)
[2022-03-26] MEDS: INSULIN LISPRO (NovoLOG) PER UNIT SC SCH ×4 (09:05→22:54)
[2022-03-26] MEDS: MIDODRINE 5 MG TAB PO SCH ×3 (09:05→15:58)
[2022-03-26 16:00] VITALS: BP 112/67
[2022-03-26] MEDS: LevoFLOXacin 250 MG TABLET PO SCH (17:22)
[2022-03-26] MEDS: NORTRIPTYLINE 25 MG CAP PO SCH (22:50)
[2022-03-26] MEDS: PERCOCET 5MG/325MG TAB PO PRN (22:51)
[2022-03-26] MEDS: LEVEMIR (INSULIN DETEMIR) 1 UNITS/0.01ML SC SCH (22:54)
[2022-03-27 06:00] VITALS: BP 111/68
[2022-03-27 06:20] LABS: BASO # 0.1 10^3/uL (0.0-0.2); BASO % 0.5 % (0.0-1.0); EOS # 0.3 10^3/uL (0.0-0.5); EOS % 2.6 % (0.0-3.0); HEMOGLOBIN 8.4 g/dl (12.0-15.5); LYMPH # 0.8 10^3/uL (1.5-5.0); LYMPH % 7.1 % (24.0-44.0); MEAN CORPUSCULAR HEMOGLOBIN 29.2 pg (27.0-33.0); MEAN CORPUSCULAR HGB CONC 32.3 g/dl (32.0-36.5); MEAN CORPUSCULAR VOLUME 90.3 fl (80.0-96.0); MONO # 0.8 10^3/uL (0.0-0.8); MONO % 7.5 % (2.0-8.0); NEUTROPHILS # 8.6 10^3/uL (1.5-8.5); NEUTROPHILS % 77.3 % (36.0-66.0); PLATELET COUNT, AUTOMATED 104 10^3/uL (150-450); RED BLOOD COUNT 2.88 10^6/uL (4.00-5.40); WHITE BLOOD COUNT 11.1 10^3/uL (4.0-10.0)
[2022-03-27 06:44] LABS: CALCIUM LEVEL 7.2 MG/DL (8.5-10.1); CREATININE FOR GFR 2.37 MG/DL (0.55-1.30); GLOMERULAR FILTRATION RATE 22.6 (>51); POTASSIUM SERUM 3.8 MEQ/L (3.5-5.1)
[2022-03-27] MEDS: MIDODRINE 5 MG TAB PO SCH ×3 (07:37→15:43)
[2022-03-27] MEDS: INSULIN LISPRO (NovoLOG) PER UNIT SC SCH ×4 (07:37→21:07)
[2022-03-27] MEDS: SUCROFERRIC OXYHYDROXIDE 500MG CHEW TAB (VELPHORO) PO SCH ×3 (07:39→18:00)
[2022-03-27] MEDS: busPIRone 10 MG TAB PO SCH ×2 (09:04→21:07)
[2022-03-27] MEDS: MIRALAX *UNIT DOSE* 17GM PACKET PO SCH ×2 (09:04→21:07)
[2022-03-27] MEDS: PERCOCET 5MG/325MG TAB PO PRN ×2 (09:05→16:33)
[2022-03-27] MEDS: FENTANYL REMOVAL DOCUMENTATION MISC XX SCH (16:30)
[2022-03-27] MEDS: fentaNYL 25 MCG/HR PATCH TD SCH (16:31)
[2022-03-27] MEDS: LevoFLOXacin 250 MG TABLET PO SCH (17:55)
[2022-03-27] MEDS: LEVEMIR (INSULIN DETEMIR) 1 UNITS/0.01ML SC SCH (21:07)
[2022-03-27] MEDS: NORTRIPTYLINE 25 MG CAP PO SCH (21:07)
[2022-03-28] MEDS: PERCOCET 5MG/325MG TAB PO PRN ×4 (00:15→21:16)
[2022-03-28 05:00] VITALS: BP 115/54
[2022-03-28] MEDS ORDERED: SODIUM CHLORIDE 0.9% 1000ML IV PRN (06:00)
[2022-03-28 06:14] VITALS: BP 131/59
[2022-03-28 06:22] LABS: BASO % 0.2 % (0.0-1.0); EOS # 0.3 10^3/uL (0.0-0.5); EOS % 1.9 % (0.0-3.0); HEMATOCRIT 26.7 % (36.0-47.0); HEMOGLOBIN 8.7 g/dl (12.0-15.5); LYMPH # 0.8 10^3/uL (1.5-5.0); LYMPH % 6.1 % (24.0-44.0); MEAN CORPUSCULAR HEMOGLOBIN 29.7 pg (27.0-33.0); MEAN CORPUSCULAR HGB CONC 32.6 g/dl (32.0-36.5); MEAN CORPUSCULAR VOLUME 91.1 fl (80.0-96.0); MONO # 1.1 10^3/uL (0.0-0.8); MONO % 7.9 % (2.0-8.0); NEUTROPHILS # 10.6 10^3/uL (1.5-8.5); NEUTROPHILS % 79.7 % (36.0-66.0); PLATELET COUNT, AUTOMATED 126 10^3/uL (150-450); RED BLOOD COUNT 2.93 10^6/uL (4.00-5.40); WHITE BLOOD COUNT 13.3 10^3/uL (4.0-10.0)
[2022-03-28] MEDS: busPIRone 10 MG TAB PO SCH ×2 (06:38→21:14)
[2022-03-28 06:40] LABS: CALCIUM LEVEL 7.5 MG/DL (8.5-10.1); CREATININE FOR GFR 2.74 MG/DL (0.55-1.30); GLOMERULAR FILTRATION RATE 19.1 (>51); POTASSIUM SERUM 4.1 MEQ/L (3.5-5.1)
[2022-03-28] MEDS: SUCROFERRIC OXYHYDROXIDE 500MG CHEW TAB (VELPHORO) PO SCH ×3 (08:00→18:00)
[2022-03-28] MEDS: INSULIN LISPRO (NovoLOG) PER UNIT SC SCH ×4 (08:06→21:14)
[2022-03-28] MEDS: MIDODRINE 5 MG TAB PO SCH ×3 (08:07→15:43)
[2022-03-28] MEDS: MIRALAX *UNIT DOSE* 17GM PACKET PO SCH ×2 (08:08→21:00)
[2022-03-28] MEDS: SODIUM THIOSULFATE 25 GM in NS 100 ML IV SCH ×2 (15:33→17:30)
[2022-03-28] MEDS: LevoFLOXacin 250 MG TABLET PO SCH (18:53)
[2022-03-28] MEDS: NORTRIPTYLINE 25 MG CAP PO SCH (21:14)
[2022-03-28] MEDS: LEVEMIR (INSULIN DETEMIR) 1 UNITS/0.01ML SC SCH (21:15)
[2022-03-29 05:25] VITALS: BP 122/71
[2022-03-29 06:05] LABS: BASO % 0.4 % (0.0-1.0); EOS # 0.2 10^3/uL (0.0-0.5); HEMATOCRIT 24.8 % (36.0-47.0); LYMPH # 0.8 10^3/uL (1.5-5.0); LYMPH % 6.6 % (24.0-44.0); MEAN CORPUSCULAR HEMOGLOBIN 29.5 pg (27.0-33.0); MEAN CORPUSCULAR HGB CONC 32.3 g/dl (32.0-36.5); MEAN CORPUSCULAR VOLUME 91.5 fl (80.0-96.0); MONO % 8.5 % (2.0-8.0); NEUTROPHILS # 8.9 10^3/uL (1.5-8.5); NEUTROPHILS % 78.5 % (36.0-66.0); PLATELET COUNT, AUTOMATED 115 10^3/uL (150-450); RED BLOOD COUNT 2.71 10^6/uL (4.00-5.40); WHITE BLOOD COUNT 11.3 10^3/uL (4.0-10.0)
[2022-03-29 06:32] LABS: CALCIUM LEVEL 7.5 MG/DL (8.5-10.1); CREATININE FOR GFR 2.13 MG/DL (0.55-1.30); GLOMERULAR FILTRATION RATE 25.6 (>51)
[2022-03-29] MEDS: SUCROFERRIC OXYHYDROXIDE 500MG CHEW TAB (VELPHORO) PO SCH ×4 (08:00→18:00)
[2022-03-29] MEDS: MIDODRINE 5 MG TAB PO SCH ×3 (08:11→17:52)
[2022-03-29] MEDS: busPIRone 10 MG TAB PO SCH ×2 (08:11→20:09)
[2022-03-29] MEDS: INSULIN LISPRO (NovoLOG) PER UNIT SC SCH ×4 (08:12→20:10)
[2022-03-29] MEDS: MIRALAX *UNIT DOSE* 17GM PACKET PO SCH ×2 (08:12→20:02)
[2022-03-29] MEDS: PERCOCET 5MG/325MG TAB PO PRN ×2 (09:01→20:11)
[2022-03-29] MEDS ORDERED: MAALOX 30 ML SUSP *UDC PO PRN (14:50)
[2022-03-29] MEDS: LevoFLOXacin 250 MG TABLET PO SCH (18:33)
[2022-03-29] MEDS: OMEPRAZOLE 20MG CAP PO SCH (20:09)
[2022-03-29] MEDS: NORTRIPTYLINE 25 MG CAP PO SCH (20:09)
[2022-03-29] MEDS: LEVEMIR (INSULIN DETEMIR) 1 UNITS/0.01ML SC SCH (20:10)
[2022-03-30 06:00] VITALS: BP 101/56
[2022-03-30] MEDS ORDERED: SODIUM CHLORIDE 0.9% 1000ML IV PRN (06:00)
[2022-03-30] MEDS: MIRALAX *UNIT DOSE* 17GM PACKET PO SCH ×2 (07:28→20:38)
[2022-03-30] MEDS: SUCROFERRIC OXYHYDROXIDE 500MG CHEW TAB (VELPHORO) PO SCH ×3 (07:28→18:00)
[2022-03-30 07:39] LABS: HEMATOCRIT 24.2 % (36.0-47.0); HEMOGLOBIN 7.7 g/dl (12.0-15.5); MEAN CORPUSCULAR HEMOGLOBIN 29.2 pg (27.0-33.0); MEAN CORPUSCULAR HGB CONC 31.8 g/dl (32.0-36.5); MEAN CORPUSCULAR VOLUME 91.7 fl (80.0-96.0); PLATELET COUNT, AUTOMATED 118 10^3/uL (150-450); RED BLOOD COUNT 2.64 10^6/uL (4.00-5.40); WHITE BLOOD COUNT 9.9 10^3/uL (4.0-10.0)
[2022-03-30 08:00] LABS: CREATININE FOR GFR 2.68 MG/DL (0.55-1.30); GLOMERULAR FILTRATION RATE 19.6 (>51); POTASSIUM SERUM 3.9 MEQ/L (3.5-5.1)
[2022-03-30] MEDS: busPIRone 10 MG TAB PO SCH ×2 (08:01→19:57)
[2022-03-30] MEDS: MIDODRINE 5 MG TAB PO SCH ×3 (08:01→16:00)
[2022-03-30] MEDS: INSULIN LISPRO (NovoLOG) PER UNIT SC SCH ×4 (08:02→21:00)
[2022-03-30] MEDS: PERCOCET 5MG/325MG TAB PO PRN ×2 (12:03→20:43)
[2022-03-30] MEDS: SODIUM THIOSULFATE 25 GM in NS 100 ML IV SCH (18:36)
[2022-03-30] MEDS: OMEPRAZOLE 20MG CAP PO SCH (19:57)
[2022-03-30] MEDS: NORTRIPTYLINE 25 MG CAP PO SCH (19:57)
[2022-03-30] MEDS: LevoFLOXacin 250 MG TABLET PO SCH (19:57)
[2022-03-30] MEDS: fentaNYL 25 MCG/HR PATCH TD SCH (19:59)
[2022-03-30] MEDS: LEVEMIR (INSULIN DETEMIR) 1 UNITS/0.01ML SC SCH (21:58)
[2022-03-31 06:00] VITALS: BP_SYST 100; BP_SYST 124; BP_DIAS 59; BP_DIAS 62
[2022-03-31] MEDS: SUCROFERRIC OXYHYDROXIDE 500MG CHEW TAB (VELPHORO) PO SCH ×4 (08:00→17:32)
[2022-03-31] MEDS: MIRALAX *UNIT DOSE* 17GM PACKET PO SCH ×2 (08:25→20:21)
[2022-03-31] MEDS: MIDODRINE 5 MG TAB PO SCH ×3 (08:26→16:09)
[2022-03-31] MEDS: INSULIN LISPRO (NovoLOG) PER UNIT SC SCH ×4 (08:26→20:26)
[2022-03-31] MEDS: busPIRone 10 MG TAB PO SCH ×2 (08:26→20:26)
[2022-03-31] MEDS: PERCOCET 5MG/325MG TAB PO PRN ×2 (12:05→18:24)
[2022-03-31] MEDS: ACETAMINOPHEN TAB 650MG DOSE (2X325MG) PO PRN (16:09)
[2022-03-31] MEDS: LevoFLOXacin 250 MG TABLET PO SCH (17:21)
[2022-03-31] MEDS: OMEPRAZOLE 20MG CAP PO SCH (20:26)
[2022-03-31] MEDS: NORTRIPTYLINE 25 MG CAP PO SCH (20:26)
[2022-03-31] MEDS: LEVEMIR (INSULIN DETEMIR) 1 UNITS/0.01ML SC SCH (20:27)
[2022-04-01] VITALS (10 sets, daily range): BP systolic 91–125; BP diastolic 56–78
[2022-04-01] MEDS ORDERED: SODIUM CHLORIDE 0.9% 1000ML IV PRN (06:55)
[2022-04-01] MEDS: MIRALAX *UNIT DOSE* 17GM PACKET PO SCH ×2 (07:33→20:17)
[2022-04-01] MEDS: SUCROFERRIC OXYHYDROXIDE 500MG CHEW TAB (VELPHORO) PO SCH ×3 (07:33→18:00)
[2022-04-01] MEDS: MIDODRINE 5 MG TAB PO SCH ×3 (07:37→16:34)
[2022-04-01] MEDS: INSULIN LISPRO (NovoLOG) PER UNIT SC SCH ×4 (07:37→20:18)
[2022-04-01] MEDS: busPIRone 10 MG TAB PO SCH ×2 (07:37→20:21)
[2022-04-01 09:26] LABS: HEMATOCRIT 23.4 % (36.0-47.0); HEMOGLOBIN 7.5 g/dl (12.0-15.5); MEAN CORPUSCULAR HEMOGLOBIN 29.8 pg (27.0-33.0); MEAN CORPUSCULAR HGB CONC 32.1 g/dl (32.0-36.5); MEAN CORPUSCULAR VOLUME 92.9 fl (80.0-96.0); PLATELET COUNT, AUTOMATED 115 10^3/uL (150-450); RED BLOOD COUNT 2.52 10^6/uL (4.00-5.40); WHITE BLOOD COUNT 9.4 10^3/uL (4.0-10.0)
[2022-04-01 10:00] LABS: ALBUMIN 0.7 GM/DL (3.2-5.2); BLOOD UREA NITROGEN 44 MG/DL (7-18); CALCIUM LEVEL 7.1 MG/DL (8.5-10.1); CARBON DIOXIDE LEVEL 23 MEQ/L (21-32); CHLORIDE LEVEL 98 MEQ/L (98-107); CREATININE FOR GFR 2.61 MG/DL (0.55-1.30); GLOMERULAR FILTRATION RATE 20.3 (>51); GLUCOSE, FASTING 337 MG/DL (70-100); IRON (FE) 37 UG/DL (50-170); PERCENT SATURATION 52.9 % (13.2-45.0); PHOSPHORUS LEVEL 4.2 MG/DL (2.5-4.9); POTASSIUM SERUM 3.9 MEQ/L (3.5-5.1); SODIUM LEVEL 130 MEQ/L (136-145); TOTAL IRON BINDING CAPACITY 70 UG/DL (250-450)
[2022-04-01] MEDS: PERCOCET 5MG/325MG TAB PO PRN (16:35)
[2022-04-01] MEDS: SODIUM THIOSULFATE 25 GM in NS 100 ML IV SCH (16:37)
[2022-04-01] MEDS: OMEPRAZOLE 20MG CAP PO SCH (20:21)
[2022-04-01] MEDS: LEVEMIR (INSULIN DETEMIR) 1 UNITS/0.01ML SC SCH (20:21)
[2022-04-01] MEDS: NORTRIPTYLINE 25 MG CAP PO SCH (20:21)
[2022-04-01] MEDS: ACETAMINOPHEN TAB 650MG DOSE (2X325MG) PO PRN (20:24)
[2022-04-02] MEDS: PERCOCET 5MG/325MG TAB PO PRN ×3 (00:20→21:02)
[2022-04-02 06:00] VITALS: BP 111/61
[2022-04-02] MEDS: MIRALAX *UNIT DOSE* 17GM PACKET PO SCH ×2 (09:00→20:55)
[2022-04-02 09:24] VITALS: BP 110/60
[2022-04-02] MEDS: MIDODRINE 5 MG TAB PO SCH ×3 (09:26→17:25)
[2022-04-02] MEDS: busPIRone 10 MG TAB PO SCH ×2 (09:26→20:59)
[2022-04-02] MEDS: INSULIN LISPRO (NovoLOG) PER UNIT SC SCH ×4 (09:26→21:00)
[2022-04-02] MEDS: SUCROFERRIC OXYHYDROXIDE 500MG CHEW TAB (VELPHORO) PO SCH ×3 (09:27→15:44)
[2022-04-02] MEDS: fentaNYL 25 MCG/HR PATCH TD SCH (17:26)
[2022-04-02] MEDS: FENTANYL REMOVAL DOCUMENTATION MISC XX SCH (17:32)
[2022-04-02] MEDS: NORTRIPTYLINE 25 MG CAP PO SCH (20:59)
[2022-04-02] MEDS: OMEPRAZOLE 20MG CAP PO SCH (20:59)
[2022-04-02] MEDS: LEVEMIR (INSULIN DETEMIR) 1 UNITS/0.01ML SC SCH (21:00)
[2022-04-03 06:00] VITALS: BP 100/54
[2022-04-03] MEDS: PERCOCET 5MG/325MG TAB PO PRN ×2 (07:03→18:22)
[2022-04-03 07:36] LABS: HEMATOCRIT 27.8 % (36.0-47.0); HEMOGLOBIN 9.1 g/dl (12.0-15.5); MEAN CORPUSCULAR HEMOGLOBIN 29.9 pg (27.0-33.0); MEAN CORPUSCULAR HGB CONC 32.7 g/dl (32.0-36.5); MEAN CORPUSCULAR VOLUME 91.4 fl (80.0-96.0); PLATELET COUNT, AUTOMATED 117 10^3/uL (150-450); RED BLOOD COUNT 3.04 10^6/uL (4.00-5.40)
[2022-04-03] MEDS: SUCROFERRIC OXYHYDROXIDE 500MG CHEW TAB (VELPHORO) PO SCH ×3 (08:00→17:19)
[2022-04-03 08:30] LABS: CALCIUM LEVEL 7.4 MG/DL (8.5-10.1); CREATININE FOR GFR 2.76 MG/DL (0.55-1.30); POTASSIUM SERUM 4.8 MEQ/L (3.5-5.1)
[2022-04-03] MEDS: MIRALAX *UNIT DOSE* 17GM PACKET PO SCH ×2 (08:33→21:00)
[2022-04-03] MEDS: busPIRone 10 MG TAB PO SCH ×2 (08:33→21:43)
[2022-04-03] MEDS: MIDODRINE 5 MG TAB PO SCH ×3 (08:33→17:18)
[2022-04-03] MEDS: INSULIN LISPRO (NovoLOG) PER UNIT SC SCH ×4 (08:33→21:43)
[2022-04-03 10:08] LABS: HEPATITIS B SURFACE ANTIGEN NEGATIVE (NEGATIVE)
[2022-04-03 12:55] VITALS: BP 100/53
[2022-04-03] MEDS: OMEPRAZOLE 20MG CAP PO SCH (21:43)
[2022-04-03] MEDS: NORTRIPTYLINE 25 MG CAP PO SCH (21:43)
[2022-04-03] MEDS: LEVEMIR (INSULIN DETEMIR) 1 UNITS/0.01ML SC SCH (21:44)
[2022-04-04] MEDS: MIRALAX *UNIT DOSE* 17GM PACKET PO SCH ×2 (05:26→20:27)
[2022-04-04] MEDS: MIDODRINE 5 MG TAB PO SCH ×3 (05:29→16:00)
[2022-04-04] MEDS: SUCROFERRIC OXYHYDROXIDE 500MG CHEW TAB (VELPHORO) PO SCH ×5 (05:30→18:00)
[2022-04-04] MEDS: busPIRone 10 MG TAB PO SCH ×2 (05:30→20:32)
[2022-04-04 05:43] VITALS: BP 104/53
[2022-04-04] MEDS ORDERED: SODIUM CHLORIDE 0.9% 1000ML IV PRN (06:50)
[2022-04-04] MEDS: INSULIN LISPRO (NovoLOG) PER UNIT SC SCH ×4 (08:20→20:25)
[2022-04-04] MEDS: PERCOCET 5MG/325MG TAB PO PRN ×2 (11:04→21:19)
[2022-04-04] MEDS: SODIUM THIOSULFATE 25 GM in NS 100 ML IV SCH (18:08)
[2022-04-04] MEDS: OMEPRAZOLE 20MG CAP PO SCH (20:32)
[2022-04-04] MEDS: NORTRIPTYLINE 25 MG CAP PO SCH (20:32)
[2022-04-04] MEDS: LEVEMIR (INSULIN DETEMIR) 1 UNITS/0.01ML SC SCH (20:33)
[2022-04-05 06:00] VITALS: BP 105/47
[2022-04-05] MEDS: MIDODRINE 5 MG TAB PO SCH ×3 (07:59→17:11)
[2022-04-05] MEDS: INSULIN LISPRO (NovoLOG) PER UNIT SC SCH ×4 (07:59→20:44)
[2022-04-05] MEDS: MIRALAX *UNIT DOSE* 17GM PACKET PO SCH ×2 (08:00→20:35)
[2022-04-05] MEDS: SUCROFERRIC OXYHYDROXIDE 500MG CHEW TAB (VELPHORO) PO SCH ×4 (08:00→23:36)
[2022-04-05] MEDS: busPIRone 10 MG TAB PO SCH ×2 (08:00→20:43)
[2022-04-05] MEDS: PERCOCET 5MG/325MG TAB PO PRN ×2 (09:48→17:11)
[2022-04-05] MEDS: ACETAMINOPHEN TAB 650MG DOSE (2X325MG) PO PRN (12:25)
[2022-04-05] MEDS: fentaNYL 25 MCG/HR PATCH TD SCH (17:12)
[2022-04-05] MEDS: FENTANYL REMOVAL DOCUMENTATION MISC XX SCH (17:19)
[2022-04-05] MEDS: OMEPRAZOLE 20MG CAP PO SCH (20:43)
[2022-04-05] MEDS: NORTRIPTYLINE 25 MG CAP PO SCH (20:43)
[2022-04-05] MEDS: LEVEMIR (INSULIN DETEMIR) 1 UNITS/0.01ML SC SCH (20:44)
[2022-04-06] MEDS: MIRALAX *UNIT DOSE* 17GM PACKET PO SCH ×2 (05:30→20:25)
[2022-04-06] MEDS: busPIRone 10 MG TAB PO SCH ×2 (05:32→20:31)
[2022-04-06] MEDS: MIDODRINE 5 MG TAB PO SCH ×5 (05:33→17:23)
[2022-04-06 06:00] VITALS: BP 97/61
[2022-04-06 07:13] LABS: HEMATOCRIT 27.1 % (36.0-47.0); HEMOGLOBIN 8.6 g/dl (12.0-15.5); MEAN CORPUSCULAR HEMOGLOBIN 29.3 pg (27.0-33.0); MEAN CORPUSCULAR HGB CONC 31.7 g/dl (32.0-36.5); MEAN CORPUSCULAR VOLUME 92.2 fl (80.0-96.0); PLATELET COUNT, AUTOMATED 117 10^3/uL (150-450); RED BLOOD COUNT 2.94 10^6/uL (4.00-5.40); WHITE BLOOD COUNT 10.2 10^3/uL (4.0-10.0)
[2022-04-06 07:44] LABS: CALCIUM LEVEL 7.3 MG/DL (8.5-10.1); CREATININE FOR GFR 3.01 MG/DL (0.55-1.30); GLOMERULAR FILTRATION RATE 17.2 (>51)
[2022-04-06] MEDS: INSULIN LISPRO (NovoLOG) PER UNIT SC SCH ×4 (07:56→20:24)
[2022-04-06] MEDS: PERCOCET 5MG/325MG TAB PO PRN ×3 (07:57→20:32)
[2022-04-06] MEDS ORDERED: SODIUM CHLORIDE 0.9% 1000ML IV PRN (08:00)
[2022-04-06] MEDS ORDERED: MIDODRINE 5 MG TAB PO ONE (08:20)
[2022-04-06] MEDS: DARBEPOETIN 200MCG/0.4ML *DIALYSIS* SYRINGE (J0882 PER 1MCG) IV SCH (09:12)
[2022-04-06] MEDS: IRON SUCROSE 100MG 5ML VIAL (J1756 PER 1MG) IV SCH (10:08)
[2022-04-06] MEDS: SODIUM THIOSULFATE 25 GM in NS 100 ML IV SCH (11:34)
[2022-04-06] MEDS: SUCROFERRIC OXYHYDROXIDE 500MG CHEW TAB (VELPHORO) PO SCH ×2 (12:30→17:24)
[2022-04-06] MEDS: LEVEMIR (INSULIN DETEMIR) 1 UNITS/0.01ML SC SCH (20:31)
[2022-04-06] MEDS: OMEPRAZOLE 20MG CAP PO SCH (20:31)
[2022-04-06] MEDS: NORTRIPTYLINE 25 MG CAP PO SCH (20:31)
[2022-04-07 06:00] VITALS: BP 98/60
[2022-04-07] MEDS: SUCROFERRIC OXYHYDROXIDE 500MG CHEW TAB (VELPHORO) PO SCH ×4 (08:00→23:10)
[2022-04-07] MEDS: MIRALAX *UNIT DOSE* 17GM PACKET PO SCH ×2 (08:05→21:00)
[2022-04-07] MEDS: busPIRone 10 MG TAB PO SCH ×2 (08:05→20:59)
[2022-04-07] MEDS: INSULIN LISPRO (NovoLOG) PER UNIT SC SCH ×4 (08:06→21:00)
[2022-04-07] MEDS: MIDODRINE 5 MG TAB PO SCH ×3 (08:06→17:29)
[2022-04-07] MEDS: PERCOCET 5MG/325MG TAB PO PRN ×2 (08:10→20:59)
[2022-04-07 11:20] VITALS: BP 95/51
[2022-04-07 12:00] VITALS: BP 98/52
[2022-04-07 14:00] VITALS: BP 98/50
[2022-04-07 16:59] LABS: ALBUMIN 0.8 GM/DL (3.2-5.2); BILIRUBIN,TOTAL 1.2 MG/DL (0.2-1.0); CALCIUM LEVEL 7.3 MG/DL (8.5-10.1); CREATININE FOR GFR 2.83 MG/DL (0.55-1.30); GLOMERULAR FILTRATION RATE 18.4 (>51); MAGNESIUM LEVEL 1.7 MG/DL (1.8-2.4); POTASSIUM SERUM 3.8 MEQ/L (3.5-5.1); TOTAL PROTEIN 5.9 GM/DL (6.4-8.2)
[2022-04-07] MEDS: NORTRIPTYLINE 25 MG CAP PO SCH (20:59)
[2022-04-07] MEDS: OMEPRAZOLE 20MG CAP PO SCH (20:59)
[2022-04-07] MEDS: LEVEMIR (INSULIN DETEMIR) 1 UNITS/0.01ML SC SCH (21:00)
[2022-04-07] MEDS ORDERED: ONDANSETRON 4MG TAB PO PRN (21:35)
[2022-04-08] MEDS: MIRALAX *UNIT DOSE* 17GM PACKET PO SCH ×2 (05:41→20:59)
[2022-04-08] MEDS: MIDODRINE 5 MG TAB PO SCH ×3 (05:42→17:19)
[2022-04-08] MEDS: busPIRone 10 MG TAB PO SCH ×2 (05:42→21:01)
[2022-04-08 05:48] VITALS: BP 97/51
[2022-04-08] MEDS: INSULIN LISPRO (NovoLOG) PER UNIT SC SCH ×4 (07:56→21:00)
[2022-04-08] MEDS: PERCOCET 5MG/325MG TAB PO PRN ×2 (07:57→18:14)
[2022-04-08] MEDS ORDERED: SODIUM CHLORIDE 0.9% 1000ML IV PRN (08:50)
[2022-04-08] MEDS: SODIUM THIOSULFATE 25 GM in NS 100 ML IV SCH (11:03)
[2022-04-08] MEDS: IRON SUCROSE 100MG 5ML VIAL (J1756 PER 1MG) IV SCH (11:10)
[2022-04-08] MEDS: SUCROFERRIC OXYHYDROXIDE 500MG CHEW TAB (VELPHORO) PO SCH ×2 (12:19→16:46)
[2022-04-08] MEDS: ACETAMINOPHEN TAB 650MG DOSE (2X325MG) PO PRN (12:19)
[2022-04-08] MEDS: fentaNYL 25 MCG/HR PATCH TD SCH (17:21)
[2022-04-08] MEDS: FENTANYL REMOVAL DOCUMENTATION MISC XX SCH (17:25)
[2022-04-08] MEDS: OMEPRAZOLE 20MG CAP PO SCH (21:01)
[2022-04-08] MEDS: NORTRIPTYLINE 25 MG CAP PO SCH (21:01)
[2022-04-08] MEDS: LEVEMIR (INSULIN DETEMIR) 1 UNITS/0.01ML SC SCH (21:02)
[2022-04-09] MEDS: PERCOCET 5MG/325MG TAB PO PRN ×3 (00:14→21:45)
[2022-04-09 05:25] VITALS: BP 96/51
[2022-04-09] MEDS: MIRALAX *UNIT DOSE* 17GM PACKET PO SCH ×2 (09:00→21:00)
[2022-04-09] MEDS: MIDODRINE 5 MG TAB PO SCH ×3 (09:02→17:06)
[2022-04-09] MEDS: INSULIN LISPRO (NovoLOG) PER UNIT SC SCH ×4 (09:02→21:00)
[2022-04-09] MEDS: SUCROFERRIC OXYHYDROXIDE 500MG CHEW TAB (VELPHORO) PO SCH ×4 (09:02→17:02)
[2022-04-09] MEDS: busPIRone 10 MG TAB PO SCH ×2 (09:02→21:43)
[2022-04-09] MEDS: NORTRIPTYLINE 25 MG CAP PO SCH (21:43)
[2022-04-09] MEDS: OMEPRAZOLE 20MG CAP PO SCH (21:43)
[2022-04-09] MEDS: LEVEMIR (INSULIN DETEMIR) 1 UNITS/0.01ML SC SCH (21:45)
[2022-04-10 06:00] VITALS: BP 96/51
[2022-04-10 07:21] LABS: HEMATOCRIT 27.9 % (36.0-47.0); HEMOGLOBIN 8.9 g/dl (12.0-15.5); MEAN CORPUSCULAR HGB CONC 31.9 g/dl (32.0-36.5); MEAN CORPUSCULAR VOLUME 93.9 fl (80.0-96.0); PLATELET COUNT, AUTOMATED 130 10^3/uL (150-450); RED BLOOD COUNT 2.97 10^6/uL (4.00-5.40); WHITE BLOOD COUNT 13.2 10^3/uL (4.0-10.0)
[2022-04-10 07:47] LABS: CREATININE FOR GFR 3.33 MG/DL (0.55-1.30); GLOMERULAR FILTRATION RATE 15.3 (>51)
[2022-04-10] MEDS: MIDODRINE 5 MG TAB PO SCH ×3 (09:47→17:46)
[2022-04-10] MEDS: busPIRone 10 MG TAB PO SCH ×2 (09:47→20:44)
[2022-04-10] MEDS: SUCROFERRIC OXYHYDROXIDE 500MG CHEW TAB (VELPHORO) PO SCH ×3 (09:47→17:47)
[2022-04-10] MEDS: INSULIN LISPRO (NovoLOG) PER UNIT SC SCH ×4 (09:47→20:21)
[2022-04-10] MEDS: MIRALAX *UNIT DOSE* 17GM PACKET PO SCH ×2 (09:48→21:00)
[2022-04-10] MEDS: PERCOCET 5MG/325MG TAB PO PRN (13:21)
[2022-04-10] MEDS ORDERED: MORPHINE 30 MG TAB **MSIR PO ONE (14:30)
[2022-04-10] MEDS ORDERED: NALOXONE INJ 0.4MG/1ML VIAL (J2310 PER 1MG) IV PRN (14:30)
[2022-04-10] MEDS: BISACODYL 5 MG TAB PO PRN (14:46)
[2022-04-10 16:45] VITALS: BP 120/70
[2022-04-10] MEDS: FENTANYL REMOVAL DOCUMENTATION MISC XX SCH (17:53)
[2022-04-10] MEDS: SENOKOT S TAB PO SCH (20:41)
[2022-04-10] MEDS: OMEPRAZOLE 20MG CAP PO SCH (20:41)
[2022-04-10] MEDS: oxyCODONE 10 MG CR TAB PO SCH (20:43)
[2022-04-10] MEDS: LEVEMIR (INSULIN DETEMIR) 1 UNITS/0.01ML SC SCH (20:44)
[2022-04-10] MEDS: NORTRIPTYLINE 25 MG CAP PO SCH (20:44)
[2022-04-11] MEDS ORDERED: SODIUM CHLORIDE 0.9% 1000ML IV PRN (06:00)
[2022-04-11 06:12] VITALS: BP 97/47
[2022-04-11] MEDS: SENOKOT S TAB PO SCH ×2 (06:20→21:32)
[2022-04-11] MEDS: MIDODRINE 5 MG TAB PO SCH ×3 (06:20→18:04)
[2022-04-11] MEDS: oxyCODONE 10 MG CR TAB PO SCH ×2 (06:21→21:33)
[2022-04-11] MEDS: busPIRone 10 MG TAB PO SCH ×2 (06:21→21:32)
[2022-04-11] MEDS: SUCROFERRIC OXYHYDROXIDE 500MG CHEW TAB (VELPHORO) PO SCH ×3 (07:49→17:56)
[2022-04-11] MEDS: MIRALAX *UNIT DOSE* 17GM PACKET PO SCH ×2 (07:50→21:31)
[2022-04-11] MEDS: INSULIN LISPRO (NovoLOG) PER UNIT SC SCH ×4 (07:54→19:59)
[2022-04-11] MEDS: IRON SUCROSE 100MG 5ML VIAL (J1756 PER 1MG) IV SCH (09:01)
[2022-04-11] MEDS: oxyCODONE 5MG TAB PO PRN (10:00)
[2022-04-11] MEDS: SODIUM THIOSULFATE 25 GM in NS 100 ML IV SCH (10:52)
[2022-04-11] MEDS: BISACODYL 5 MG TAB PO PRN (12:48)
[2022-04-11] MEDS ORDERED: MAGNESIUM CITRATE 300 ML BTL PO ONE (17:55)
[2022-04-11] MEDS: LEVEMIR (INSULIN DETEMIR) 1 UNITS/0.01ML SC SCH (20:36)
[2022-04-11] MEDS: OMEPRAZOLE 20MG CAP PO SCH (21:32)
[2022-04-11] MEDS: NORTRIPTYLINE 25 MG CAP PO SCH (21:33)
[2022-04-12] MEDS: oxyCODONE 5MG TAB PO PRN ×2 (02:55→18:03)
[2022-04-12 06:00] VITALS: BP 100/58
[2022-04-12] MEDS: SUCROFERRIC OXYHYDROXIDE 500MG CHEW TAB (VELPHORO) PO SCH ×4 (08:00→18:00)
[2022-04-12] MEDS: MIRALAX *UNIT DOSE* 17GM PACKET PO SCH ×2 (09:00→21:00)
[2022-04-12] MEDS: MIDODRINE 5 MG TAB PO SCH ×3 (09:01→17:59)
[2022-04-12] MEDS: INSULIN LISPRO (NovoLOG) PER UNIT SC SCH ×4 (09:01→21:00)
[2022-04-12] MEDS: SENOKOT S TAB PO SCH ×2 (09:01→21:03)
[2022-04-12] MEDS: busPIRone 10 MG TAB PO SCH ×2 (09:02→21:03)
[2022-04-12] MEDS: oxyCODONE 10 MG CR TAB PO SCH ×2 (09:02→23:40)
[2022-04-12] MEDS: OMEPRAZOLE 20MG CAP PO SCH (21:03)
[2022-04-12] MEDS: NORTRIPTYLINE 25 MG CAP PO SCH (21:03)
[2022-04-12] MEDS: LEVEMIR (INSULIN DETEMIR) 1 UNITS/0.01ML SC SCH (21:21)
[2022-04-13] MEDS: oxyCODONE 5MG TAB PO PRN ×3 (05:29→17:51)
[2022-04-13 06:00] VITALS: BP 108/58
[2022-04-13] MEDS ORDERED: SODIUM CHLORIDE 0.9% 1000ML IV PRN (06:00)
[2022-04-13] MEDS: SENOKOT S TAB PO SCH ×2 (06:21→21:00)
[2022-04-13] MEDS: busPIRone 10 MG TAB PO SCH ×2 (06:21→21:52)
[2022-04-13 06:57] LABS: HEMATOCRIT 26.7 % (36.0-47.0); HEMOGLOBIN 8.8 g/dl (12.0-15.5); MEAN CORPUSCULAR HEMOGLOBIN 30.3 pg (27.0-33.0); MEAN CORPUSCULAR VOLUME 92.1 fl (80.0-96.0); PLATELET COUNT, AUTOMATED 138 10^3/uL (150-450)
[2022-04-13 07:38] LABS: CALCIUM LEVEL 7.4 MG/DL (8.5-10.1); CREATININE FOR GFR 3.66 MG/DL (0.55-1.30); GLOMERULAR FILTRATION RATE 13.7 (>51); POTASSIUM SERUM 4.4 MEQ/L (3.5-5.1)
[2022-04-13] MEDS: SUCROFERRIC OXYHYDROXIDE 500MG CHEW TAB (VELPHORO) PO SCH ×3 (07:42→17:58)
[2022-04-13] MEDS: MIRALAX *UNIT DOSE* 17GM PACKET PO SCH ×2 (07:42→21:00)
[2022-04-13] MEDS: INSULIN LISPRO (NovoLOG) PER UNIT SC SCH ×4 (07:50→20:46)
[2022-04-13] MEDS: oxyCODONE 10 MG CR TAB PO SCH ×2 (07:51→21:53)
[2022-04-13] MEDS: MIDODRINE 5 MG TAB PO SCH ×3 (07:51→17:50)
[2022-04-13] MEDS: IRON SUCROSE 100MG 5ML VIAL (J1756 PER 1MG) IV SCH (09:36)
[2022-04-13] MEDS: DARBEPOETIN 200MCG/0.4ML *DIALYSIS* SYRINGE (J0882 PER 1MCG) IV SCH (10:37)
[2022-04-13] MEDS: SODIUM THIOSULFATE 25 GM in NS 100 ML IV SCH (11:00)
[2022-04-13] MEDS: ONDANSETRON 4MG ORAL DISINTEGRATING TAB SL PRN (17:51)
[2022-04-13] MEDS: BISACODYL 5 MG TAB PO PRN (17:51)
[2022-04-13] MEDS: NORTRIPTYLINE 25 MG CAP PO SCH (21:52)
[2022-04-13] MEDS: OMEPRAZOLE 20MG CAP PO SCH (21:52)
[2022-04-13] MEDS: LEVEMIR (INSULIN DETEMIR) 1 UNITS/0.01ML SC SCH (21:53)
[2022-04-14 06:00] VITALS: BP 93/51
[2022-04-14] MEDS: SUCROFERRIC OXYHYDROXIDE 500MG CHEW TAB (VELPHORO) PO SCH ×3 (08:00→17:08)
[2022-04-14] MEDS: INSULIN LISPRO (NovoLOG) PER UNIT SC SCH ×4 (08:23→20:16)
[2022-04-14] MEDS: MIDODRINE 5 MG TAB PO SCH ×3 (08:27→16:28)
[2022-04-14] MEDS: busPIRone 10 MG TAB PO SCH ×2 (08:27→20:13)
[2022-04-14] MEDS: SENOKOT S TAB PO SCH ×2 (08:28→20:13)
[2022-04-14] MEDS: oxyCODONE 10 MG CR TAB PO SCH ×2 (08:29→20:14)
[2022-04-14] MEDS: MIRALAX *UNIT DOSE* 17GM PACKET PO SCH ×2 (08:31→20:14)
[2022-04-14] MEDS: BISACODYL 5 MG TAB PO PRN (12:50)
[2022-04-14] MEDS: oxyCODONE 5MG TAB PO PRN (15:19)
[2022-04-14] MEDS ORDERED: FLEET ENEMA PR PRN (15:50)
[2022-04-14] MEDS: OMEPRAZOLE 20MG CAP PO SCH (20:13)
[2022-04-14] MEDS: NORTRIPTYLINE 25 MG CAP PO SCH (20:13)
[2022-04-14] MEDS: LEVEMIR (INSULIN DETEMIR) 1 UNITS/0.01ML SC SCH (20:19)
[2022-04-15] VITALS (7 sets, daily range): BP systolic 88–112; BP diastolic 49–58
[2022-04-15] MEDS: SENOKOT S TAB PO SCH ×2 (06:06→20:58)
[2022-04-15] MEDS: busPIRone 10 MG TAB PO SCH ×2 (06:06→20:58)
[2022-04-15] MEDS: oxyCODONE 5MG TAB PO PRN ×2 (06:07→19:02)
[2022-04-15] MEDS ORDERED: SODIUM CHLORIDE 0.9% 1000ML IV PRN (06:55)
[2022-04-15] MEDS: SUCROFERRIC OXYHYDROXIDE 500MG CHEW TAB (VELPHORO) PO SCH ×3 (08:00→18:00)
[2022-04-15] MEDS: INSULIN LISPRO (NovoLOG) PER UNIT SC SCH ×4 (08:07→20:47)
[2022-04-15] MEDS: MIDODRINE 5 MG TAB PO SCH ×3 (08:08→18:00)
[2022-04-15] MEDS: MIRALAX *UNIT DOSE* 17GM PACKET PO SCH ×2 (08:09→20:47)
[2022-04-15] MEDS: oxyCODONE 10 MG CR TAB PO SCH ×2 (08:33→20:48)
[2022-04-15] MEDS: IRON SUCROSE 100MG 5ML VIAL (J1756 PER 1MG) IV SCH (13:59)
[2022-04-15] MEDS: SODIUM THIOSULFATE 25 GM in NS 100 ML IV SCH (16:50)
[2022-04-15 17:06] LABS: BASO # 0.1 10^3/uL (0.0-0.2); BASO % 0.3 % (0.0-1.0); EOS # 0.1 10^3/uL (0.0-0.5); EOS % 0.4 % (0.0-3.0); HEMATOCRIT 28.9 % (36.0-47.0); HEMOGLOBIN 9.4 g/dl (12.0-15.5); LYMPH # 0.8 10^3/uL (1.5-5.0); LYMPH % 3.1 % (24.0-44.0); MEAN CORPUSCULAR HGB CONC 32.5 g/dl (32.0-36.5); MEAN CORPUSCULAR VOLUME 92.3 fl (80.0-96.0); MONO # 1.1 10^3/uL (0.0-0.8); MONO % 4.6 % (2.0-8.0); NEUTROPHILS # 21.8 10^3/uL (1.5-8.5); NEUTROPHILS % 87.9 % (36.0-66.0); PLATELET COUNT, AUTOMATED 121 10^3/uL (150-450); RED BLOOD COUNT 3.13 10^6/uL (4.00-5.40); WHITE BLOOD COUNT 24.8 10^3/uL (4.0-10.0)
[2022-04-15] MEDS: OMEPRAZOLE 20MG CAP PO SCH (20:58)
[2022-04-15] MEDS: NORTRIPTYLINE 25 MG CAP PO SCH (20:58)
[2022-04-15] MEDS: LEVEMIR (INSULIN DETEMIR) 1 UNITS/0.01ML SC SCH (20:58)
[2022-04-15] MEDS ORDERED: oxyCODONE 15 MG CR TAB PO ONE (21:00)
[2022-04-16 05:26] VITALS: BP 91/51
[2022-04-16] MEDS: oxyCODONE 5MG TAB PO PRN ×3 (05:50→15:49)
[2022-04-16 06:30] VITALS: BP 95/52
[2022-04-16] MEDS: SUCROFERRIC OXYHYDROXIDE 500MG CHEW TAB (VELPHORO) PO SCH ×3 (08:00→18:00)
[2022-04-16] MEDS: MIDODRINE 5 MG TAB PO SCH ×3 (08:44→15:49)
[2022-04-16] MEDS: INSULIN LISPRO (NovoLOG) PER UNIT SC SCH ×4 (08:44→22:02)
[2022-04-16] MEDS: busPIRone 10 MG TAB PO SCH ×2 (08:44→22:01)
[2022-04-16] MEDS: oxyCODONE 10 MG CR TAB PO SCH ×2 (08:45→21:40)
[2022-04-16] MEDS: SENOKOT S TAB PO SCH ×2 (08:45→22:01)
[2022-04-16] MEDS: MIRALAX *UNIT DOSE* 17GM PACKET PO SCH ×2 (08:46→21:00)
[2022-04-16] MEDS: ACETAMINOPHEN TAB 650MG DOSE (2X325MG) PO PRN (15:49)
[2022-04-16] MEDS: NORTRIPTYLINE 25 MG CAP PO SCH (22:01)
[2022-04-16] MEDS: OMEPRAZOLE 20MG CAP PO SCH (22:01)
[2022-04-16] MEDS: LEVEMIR (INSULIN DETEMIR) 1 UNITS/0.01ML SC SCH (22:02)
[2022-04-17] MEDS: oxyCODONE 5MG TAB PO PRN ×2 (02:56→16:30)
[2022-04-17 06:00] VITALS: BP 111/63
[2022-04-17 07:27] LABS: HEMATOCRIT 27.3 % (36.0-47.0); HEMOGLOBIN 8.9 g/dl (12.0-15.5); MEAN CORPUSCULAR HEMOGLOBIN 30.7 pg (27.0-33.0); MEAN CORPUSCULAR HGB CONC 32.6 g/dl (32.0-36.5); MEAN CORPUSCULAR VOLUME 94.1 fl (80.0-96.0); PLATELET COUNT, AUTOMATED 100 10^3/uL (150-450); WHITE BLOOD COUNT 19.7 10^3/uL (4.0-10.0)
[2022-04-17] MEDS: INSULIN LISPRO (NovoLOG) PER UNIT SC SCH ×4 (07:30→21:00)
[2022-04-17] MEDS: SUCROFERRIC OXYHYDROXIDE 500MG CHEW TAB (VELPHORO) PO SCH ×3 (08:00→16:49)
[2022-04-17 08:03] LABS: CALCIUM LEVEL 6.8 MG/DL (8.5-10.1); CREATININE FOR GFR 3.2 MG/DL (0.55-1.30); POTASSIUM SERUM 4.7 MEQ/L (3.5-5.1)
[2022-04-17] MEDS: SENOKOT S TAB PO SCH ×2 (10:58→22:18)
[2022-04-17] MEDS: BISACODYL 5 MG TAB PO PRN (10:58)
[2022-04-17] MEDS: busPIRone 10 MG TAB PO SCH ×2 (10:58→22:18)
[2022-04-17] MEDS: MIDODRINE 5 MG TAB PO SCH ×3 (10:58→16:53)
[2022-04-17] MEDS: oxyCODONE 10 MG CR TAB PO SCH ×2 (10:58→20:49)
[2022-04-17] MEDS: MIRALAX *UNIT DOSE* 17GM PACKET PO SCH ×2 (10:59→21:00)
[2022-04-17] MEDS: OMEPRAZOLE 20MG CAP PO SCH (22:17)
[2022-04-17] MEDS: NORTRIPTYLINE 25 MG CAP PO SCH (22:18)
[2022-04-17] MEDS: LEVEMIR (INSULIN DETEMIR) 1 UNITS/0.01ML SC SCH (22:19)
[2022-04-18] MEDS: oxyCODONE 5MG TAB PO PRN ×3 (01:23→17:19)
[2022-04-18] MEDS: ACETAMINOPHEN TAB 650MG DOSE (2X325MG) PO PRN (03:30)
[2022-04-18 05:30] VITALS: BP 109/62
[2022-04-18 05:32] VITALS: BP 109/62
[2022-04-18] MEDS: oxyCODONE 10 MG CR TAB PO SCH (05:34)
[2022-04-18] MEDS: MIDODRINE 5 MG TAB PO SCH ×3 (05:35→17:20)
[2022-04-18] MEDS: busPIRone 10 MG TAB PO SCH (05:35)
[2022-04-18] MEDS: SENOKOT S TAB PO SCH (05:35)
[2022-04-18] MEDS: MIRALAX *UNIT DOSE* 17GM PACKET PO SCH (05:35)
[2022-04-18] MEDS: SUCROFERRIC OXYHYDROXIDE 500MG CHEW TAB (VELPHORO) PO SCH ×3 (05:36→17:23)
[2022-04-18] MEDS: ONDANSETRON 4MG ORAL DISINTEGRATING TAB SL PRN (05:53)
[2022-04-18] MEDS ORDERED: SODIUM CHLORIDE 0.9% 1000ML IV PRN (07:25)
[2022-04-18] MEDS: INSULIN LISPRO (NovoLOG) PER UNIT SC SCH ×3 (07:55→17:23)
[2022-04-18] MEDS: SODIUM THIOSULFATE 25 GM in NS 100 ML IV SCH (12:48)
[2022-04-18 13:20] VITALS: BP 92/55
[2022-04-18 13:30] VITALS: BP 99/57
[2022-04-18 13:39] VITALS: BP 98/60
[2022-04-18 13:49] VITALS: BP 102/57
[2022-04-18] MEDS ORDERED: ONDA4TAB6 SL (13:57)
[2022-04-18] MEDS ORDERED: ATIV1TAB10 PO (13:57)
[2022-04-18] MEDS ORDERED: FENT1DIS14 TD (13:57)
[2022-04-18] MEDS ORDERED: MORP1SOL5 PO (13:57)
[2022-04-18] MEDS ORDERED: MIDO5TA PO (13:57)
[2022-04-18] MEDS ORDERED: BASA100I SC (13:57)
[2022-04-18] MEDS ORDERED: HYOS125TA PO (13:57)
[2022-04-18] MEDS ORDERED: BISAC5TA PO (13:57)
[2022-04-18] MEDS ORDERED: ACET1TAB55 PO (13:57)
[2022-04-18] MEDS ORDERED: HUMA100I14 SC (14:02)
[2022-04-18] MEDS: IRON SUCROSE 100MG 5ML VIAL (J1756 PER 1MG) IV SCH (14:09)
[2022-04-18] MEDS ORDERED: OXYC-517 PO (15:16)
== END 2022-04-18 19:10 | disposition hospice, home (50) | DRG 720 ==
LOC: M ED 14:33 → EDBD 14:33 → M ED INP 17:29 → M PCU 21:30 → M MSPAV 03-26 15:30
PROVIDERS: ADMIT Internal Medicine; ATTEND Family Medicine
PROC: 30233N1 Transfusion of Nonautologous Red Blood Cells into Peripheral Vein, Percutaneous Approach (ICD-10-PCS; 2022-03-20)
PROC: 5A1D70Z Performance of Urinary Filtration, Intermittent, Less than 6 Hours Per Day (ICD-10-PCS; principal; 2022-03-21)
PROC: 30233J1 Transfusion of Nonautologous Serum Albumin into Peripheral Vein, Percutaneous Approach (ICD-10-PCS; 2022-04-15)
DX: A41.9 Sepsis, unspecified organism (principal); E43 Unspecified severe protein-calorie malnutrition; I13.2 Hypertensive heart and chronic kidney disease with heart failure and with stage 5 chronic kidney disease, or end stage renal disease; L89.159 Pressure ulcer of sacral region, unspecified stage; E87.20 Acidosis, unspecified; N18.6 End stage renal disease; E11.22 Type 2 diabetes mellitus with diabetic chronic kidney disease; I50.9 Heart failure, unspecified; E11.649 Type 2 diabetes mellitus with hypoglycemia without coma; E11.622 Type 2 diabetes mellitus with other skin ulcer; E11.52 Type 2 diabetes mellitus with diabetic peripheral angiopathy with gangrene; E83.59 Other disorders of calcium metabolism; E87.1 Hypo-osmolality and hyponatremia; L97.929 Non-pressure chronic ulcer of unspecified part of left lower leg with unspecified severity; L97.819 Non-pressure chronic ulcer of other part of right lower leg with unspecified severity; K75.81 Nonalcoholic steatohepatitis (NASH); K74.60 Unspecified cirrhosis of liver; Z66 Do not resuscitate; D63.1 Anemia in chronic kidney disease; E78.5 Hyperlipidemia, unspecified; F32.A Depression, unspecified; L03.116 Cellulitis of left lower limb; L03.115 Cellulitis of right lower limb; F41.9 Anxiety disorder, unspecified; J30.9 Allergic rhinitis, unspecified; K02.9 Dental caries, unspecified; I89.0 Lymphedema, not elsewhere classified; H81.10 Benign paroxysmal vertigo, unspecified ear; Z68.33 Body mass index [BMI] 33.0-33.9, adult; Z79.4 Long term (current) use of insulin; Z99.2 Dependence on renal dialysis; Z79.899 Other long term (current) drug therapy; Z91.018 Allergy to other foods; Z91.048 Other nonmedicinal substance allergy status; H54.61 Unqualified visual loss, right eye, normal vision left eye; Z91.199 Patient's noncompliance with other medical treatment and regimen due to unspecified reason; Z20.822 Contact with and (suspected) exposure to COVID-19; Z74.09 Other reduced mobility